=== PATIENT | male | born 1940 | race Caucasian/White ===

== ENCOUNTER → 2016-11-30 | Outpatient (CLI) | payer BC ==
[~2016-11-30] MED LIST: ASPCH81X PO; HMLI7525 SC; IBUP-1050 PO; METO50TA16 PO; MULTTAB58 PO; PRLSR20 PO; SIMV20TA2 PO; TRAGPOW14 PO; TRIA37.5 PO
[2016-11-30 14:13] LABS: ESTIMATED AVERAGE GLUCOSE 151 mg/dl; HA1C FLAG Normal (Normal)
[2016-11-30 14:19] LABS: CALCIUM 8.9 mg/dl (8.5-10.1)
[2016-11-30 14:26] LABS: ALT/SGPT 33 U/L (12-78); AST/SGOT 19 U/L (15-37); BLOOD UREA NITROGEN 28 mg/dl (7-18); BUN/CREATININE RATIO 20.1 (10-20); CARBON DIOXIDE 27 mmol/L (21-32); CHLORIDE 105 mmol/L (98-107); CHOLESTEROL 115 mg/dl (0-200); GLUCOSE 114 mg/dl (70-99); POTASSIUM 4.2 mmol/L (3.5-5.1); SODIUM 140 mmol/L (136-145); TRIGLYCERIDES 85 mg/dl (0-150); VERY LOW DENSITY LIPOPROT CALC 17 mg/dl
[2016-11-30 14:31] LABS: ALB/GLOB RATIO 1.2 (0.9-2); ALKALINE PHOSPHATASE 52 U/L (45-117); CHOLESTEROL/HDL RATIO 3.4; HDL CHOLESTEROL 34 mg/dl
[2016-11-30 14:43] LABS: RATIO 10.8 mcg/mg (0-30.0)
== END | disposition home or self-care (01) ==
LOC: C.LABSPEC 12:25
PROVIDERS: ATTEND Internal Medicine
DX: E66.09 Other obesity due to excess calories (principal); E78.5 Hyperlipidemia, unspecified; E11.9 Type 2 diabetes mellitus without complications; I10 Essential (primary) hypertension

== ENCOUNTER → 2017-03-30 | Outpatient (CLI) | payer BC ==
[2017-03-30 13:44] LABS: ESTIMATED AVERAGE GLUCOSE 183 mg/dl; HA1C FLAG Normal (Normal)
[2017-03-30 14:04] LABS: BLOOD UREA NITROGEN 29 mg/dl (7-18); BUN/CREATININE RATIO 19.3 (10-20); CALCIUM 8.8 mg/dl (8.5-10.1); CARBON DIOXIDE 27 mmol/L (21-32); CHLORIDE 106 mmol/L (98-107); CHOLESTEROL 124 mg/dl (0-200); GLUCOSE 161 mg/dl (70-99); POTASSIUM 4.4 mmol/L (3.5-5.1); SODIUM 138 mmol/L (136-145)
[2017-03-30 14:06] LABS: CHOLESTEROL/HDL RATIO 3.5; HDL CHOLESTEROL 35 mg/dl; TRIGLYCERIDES 82 mg/dl (0-150); VERY LOW DENSITY LIPOPROT CALC 16 mg/dl
== END | disposition home or self-care (01) ==
LOC: C.LABSPEC 12:55
PROVIDERS: ATTEND Internal Medicine
DX: E11.65 Type 2 diabetes mellitus with hyperglycemia (principal); E78.5 Hyperlipidemia, unspecified; I10 Essential (primary) hypertension

== ENCOUNTER → 2017-08-04 | Outpatient (CLI) | payer BC ==
[2017-08-04 13:24] LABS: HEMOGLOBIN A1C 8.2 % (4.5-5.6)
[2017-08-04 13:34] LABS: BLOOD UREA NITROGEN 29 mg/dl (7-18); CALCIUM 8.9 mg/dl (8.5-10.1); CARBON DIOXIDE 26 mmol/L (21-32); CHOLESTEROL 127 mg/dl (0-200); CREATININE 1.62 mg/dl (0.60-1.40); GLUCOSE 139 mg/dl (70-99); POTASSIUM 4.3 mmol/L (3.5-5.1); SODIUM 136 mmol/L (136-145)
[2017-08-04 13:37] LABS: LDL CHOLESTEROL (DIRECT) 93 mg/dl
== END | disposition home or self-care (01) ==
LOC: C.LABSPEC 12:16
PROVIDERS: ATTEND Internal Medicine
DX: E11.65 Type 2 diabetes mellitus with hyperglycemia (principal); E78.5 Hyperlipidemia, unspecified

== ENCOUNTER → 2017-11-29 | Outpatient (CLI) | payer BC ==
[2017-11-29 14:06] LABS: HEMOGLOBIN A1C 8.1 % (4.5-5.6)
[2017-11-29 14:16] LABS: BLOOD UREA NITROGEN 29 mg/dl (7-18); CALCIUM 8.6 mg/dl (8.5-10.1); CARBON DIOXIDE 28 mmol/L (21-32); CREATININE 1.59 mg/dl (0.60-1.40); GLUCOSE 129 mg/dl (70-99); POTASSIUM 4.2 mmol/L (3.5-5.1); SODIUM 138 mmol/L (136-145)
[2017-11-29 14:19] LABS: CHOLESTEROL 118 mg/dl (0-200); LDL CHOLESTEROL (DIRECT) 82 mg/dl
== END | disposition home or self-care (01) ==
LOC: C.LABSPEC 12:18
PROVIDERS: ATTEND Internal Medicine
DX: E78.5 Hyperlipidemia, unspecified (principal); I10 Essential (primary) hypertension; E11.65 Type 2 diabetes mellitus with hyperglycemia

== ENCOUNTER → 2018-02-21 | Outpatient (CLI) | payer BC ==
--- NOTE | 2018-02-21 15:50 | DIAGNOSTIC IMAGING REPORT ---
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 FINDINGS: The patient was injected with 10.9 mCi of F 18 labeled FDG. Following the standard induction phase, PET/CT scanning was performed from the lower neck to the upper thigh region. A separate table acquisitions of the head and neck was then acquired. Within the chest, there is a 28 mm FDG avid left upper lobe pulmonary mass with SUV maximum of 13.1. No additional FDG avid pulmonary lesions are visualized. There is no FDG avid adenopathy. There is a left aortic arch with an apparent right subclavian artery. Within the abdomen, there is physiologic urinary tract and bowel activity. There is no pathologic hepatic, or adrenal activity. There is no pathologic skeletal activity. There is intense focus of increased FDG activity within the cecum. Endoscopic correlation is recommended to exclude a colonic mass. There is no pathologic skeletal activity. Head and neck images reveal no evidence of pathologic noe activity. There is artifact from dental amalgam. There is a nonspecific focus of increased activity fusing to the left maxilla. Correlation with dental examination is recommended. There is a focus of minimal increased activity fusing to the left anterior mandible. This has an SUV maximum of 3.2. Again dental correlation is advocated. IMPRESSION: 1. 28 mm left upper lobe pulmonary mass which is intensely FDG avid with SUV maximum of 13.1. This should be presumed neoplastic unless proven otherwise. 2. No evidence of pathologic noe activity within the neck chest abdomen or pelvis 3. Intense focus of increased activity within the cecum with SUV maximum of 32. Endoscopic correlation is recommended to exclude a colonic lesion 4. Nonspecific foci of increased FDG activity fusing to the left anterior mandible and left maxilla. Correlation with dental examination is recommended. Electronically signed by: Mike Barba M.D. 02/21/2018 3:48 PM Dictated Date/Time: 02/21/2018 3:31 PM
== END | disposition home or self-care (01) ==
LOC: C.PET 10:51
DX: C44.02 Squamous cell carcinoma of skin of lip (principal); R91.8 Other nonspecific abnormal finding of lung field

== ENCOUNTER → 2018-02-23 | Outpatient (CLI) | payer BC ==
[~2018-02-23] MED LIST changes: +COEN100C7 PO
[2018-02-23 14:42] LABS: BASO % 0.4 %; BASO ABS # 0.03 K/uL (0-0.2); EOS % 1.8 %; EOS ABS # 0.15 K/uL (0-0.5); HEMATOCRIT 39.8 % (42-52); HEMOGLOBIN 12.8 g/dL (14.0-18.0); IG# 0.02 K/uL (0.00-0.02); LYMPH % 22.8 %; LYMPH ABS # 1.94 K/uL (1.2-3.4); MEAN CELL VOLUME 86.1 fL (80-100); MEAN CORPUSCULAR HEMOGLOBIN 27.7 pg (25-34); MEAN CORPUSCULAR HGB CONC 32.2 g/dl (32-36); MEAN PLATELET VOLUME 10.7 fL (7.4-10.4); MONO % 10.2 %; MONO ABS # 0.87 K/uL (0.11-0.59); NEUT % 64.6 %; PLATELET COUNT 285 K/uL (130-400); RED CELL DISTRIBUTION WIDTH CV 15.5 % (11.5-14.5); RED CELL DISTRIBUTION WIDTH SD 48.4 fL (36.4-46.3); WHITE BLOOD COUNT 8.51 K/uL (4.8-10.8)
[2018-02-23 15:03] LABS: ALBUMIN 3.7 gm/dl (3.4-5.0); ALKALINE PHOSPHATASE 57 U/L (45-117); ALT/SGPT 40 U/L (12-78); AST/SGOT 30 U/L (15-37); BLOOD UREA NITROGEN 30 mg/dl (7-18); CALCIUM 8.6 mg/dl (8.5-10.1); CARBON DIOXIDE 23 mmol/L (21-32); GLUCOSE 142 mg/dl (70-99); POTASSIUM 4.9 mmol/L (3.5-5.1); SODIUM 138 mmol/L (136-145); TOTAL PROTEIN 7.4 gm/dl (6.4-8.2)
== END | disposition home or self-care (01) ==
LOC: C.LABSPEC 13:30
PROVIDERS: ATTEND Internal Medicine
DX: K63.89 Other specified diseases of intestine (principal)

== ENCOUNTER → 2018-02-25 | Outpatient (CLI) | payer BC ==
--- NOTE | 2018-02-25 15:07 | DIAGNOSTIC IMAGING REPORT ---
CT SCAN OF THE ABDOMEN AND PELVIS WITHOUT IV CONTRAST CLINICAL HISTORY: Cecal mass. COMPARISON STUDY: Abdominal CT dated 09/19/2014. TECHNIQUE: CT scan of the abdomen and pelvis is performed from the lung bases to the proximal femora. Images are reviewed in the axial, sagittal, and coronal planes. IV contrast was not administered for this examination. Note that the examination is suboptimal without IV contrast. Oral contrast was utilized. The examination is also degraded by streak artifact from the arms which could not be elevated above the abdomen as well as motion artifact. A dose lowering technique was utilized adhering to the principles of ALARA. FINDINGS: Lung bases: The heart is top normal in size and without pericardial effusion. The coronary arteries and aortic valve leaflets are densely calcified. The lung bases are clear. Liver: The unenhanced liver is normal in size, contour, and attenuation. There is no intrahepatic biliary ductal dilatation. Gallbladder: Surgically absent noting clips in the gallbladder fossa. Spleen: Normal in size and attenuation. Pancreas: The unenhanced pancreas is moderately atrophic and grossly unremarkable. Adrenal glands: Unremarkable. Kidneys: The unenhanced kidneys demonstrate cortical atrophy and are without hydronephrosis. There are no renal calculi identified. There is no evidence of contour deforming renal mass lesion. Abdominal vasculature: The abdominal aorta is normal in course and caliber noting moderate to advanced atherosclerotic calcification. Bowel: There is mild colonic diverticulosis without CT evidence of acute diverticulitis. No bowel obstruction is seen the patient's reported cecal mass is not visualized by CT. The appendix is normal as imaged. Peritoneum: There is no intraperitoneal free air or abdominal ascites. There is a fat-containing umbilical hernia. Lymphadenopathy: None. Pelvic viscera: The prostate gland is enlarged and heterogeneous, measuring 5.3 cm transverse diameter. There is median lobe hypertrophy. The bladder is normal as imaged Skeletal structures: The skeletal structures are osteopenic. There is mild lumbosacral spondylosis. No lytic or blastic lesions are seen. IMPRESSION: 1. There is no evidence of metastatic disease in the abdomen or pelvis on this unenhanced examination. 2. The patient's reported cecal mass was not visualized. 3. No acute infectious or inflammatory findings are identified in the abdomen or pelvis. 4. Additional findings as above. Electronically signed by: Uzair Wilson M.D. 02/25/2018 3:06 PM Dictated Date/Time: 02/25/2018 2:59 PM
--- NOTE | 2018-02-25 15:09 | DIAGNOSTIC IMAGING REPORT ---
(CHEST) THORAX WITHOUT CT DOSE: 2714.79 mGy.cm CLINICAL HISTORY: 77 years-old Male with CT. Follow-up CT in a patient with history of head and neck carcinoma. TECHNIQUE: Multiaxial CT images of the chest were performed without contrast. A dose lowering technique was utilized adhering to the principles of ALARA. COMPARISON: PET CT 02/21/2018 FINDINGS: Homogeneous appearance of the thyroid. Calcified left hilar adenopathy compatible with prior granulomatous disease. Mild multichamber cardiac enlargement with coronary arterial calcifications. Moderate calcification of the aorta. 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 Unopacified pulmonary artery is unremarkable. Nonenlarged periaortic lymph nodes are seen at the level of the diaphragmatic hiatus. Calcific granulomata about the left upper and lower lobes. No pneumothorax or pleural effusion. Minimal dependent subsegmental bibasilar opacities suggest atelectasis. Respiratory motion limits evaluation of the lungs. Mild bilateral bronchial wall thickening with areas of mucous plugging. There are a few scattered solid nodules of the right upper lobe measuring up to 3 mm. There is a lobular solid masslike nodule of the left upper lobe redemonstrated, 2.5 x 2.4 x 2.6 cm in AP, transverse and craniocaudal dimension with surrounding groundglass density. Ill-defined consolidation tracks along the bronchovascular bundle inferior to the nodule. Adjacent pleural-based linear subsegmental consolidative opacity extends towards the anterior segment left upper lobe. No acute process about the imaged upper abdomen. Bilateral gynecomastia. No suspicious lytic or blastic bony lesions. IMPRESSION: 1. Focal masslike area of consolidation of the left upper lobe with adjacent groundglass density redemonstrated measuring up to 2.6 cm in greatest dimension. Ill-defined groundglass density and subsegmental consolidation tracks along the bronchovascular bundle towards the left hilum. Again, differential considerations would include neoplasm with infectious or inflammatory pneumonitis also in the differential. 2. There are a few solid nodules of the right upper lobe measuring up to 3 mm which are also indeterminate. Attention at follow-up recommended. 3. Bilateral bronchial wall thickening suggests bronchitis. 4. Additional findings as above include prior granulomatous disease, cardiomegaly and aberrant right subclavian artery. Electronically signed by: Jon Dorado M.D. 02/25/2018 3:08 PM Dictated Date/Time: 02/25/2018 2:57 PM
--- NOTE | 2018-02-25 16:12 | DIAGNOSTIC IMAGING REPORT ---
TWO VIEW CHEST CLINICAL HISTORY: Left upper lobe pulmonary nodule.. FINDINGS: PA and lateral chest radiographs are compared to study dated 05/22/2016 and correlated with chest CT dated 02/25/2018. The heart is enlarged and there is atherosclerotic calcification of the thoracic aorta. The pulmonary vasculature is noncongested. There is an ill-defined focus of nodular consolidation in the left upper lobe which measures approximately 3 cm. Bibasilar atelectasis is observed. Calcified granulomas are seen at the left apex. There is no pneumothorax. The skeletal structures are osteopenic. Degenerative change is noted in the thoracic spine. There are healed right-sided rib fractures. Cholecystectomy clips are seen in the upper abdomen. IMPRESSION: 1. Cardiomegaly without radiographic evidence of congestive failure. 2. There is an approximately 3 cm focus of nodular consolidation in the left upper lobe. This could represent infection/inflammation versus neoplasm. Clinical correlation will be required and radiographic follow-up to resolution is recommended. If this fails to resolve then neoplasm becomes the diagnosis of exclusion. Electronically signed by: Uzair Wilson M.D. 02/25/2018 4:11 PM Dictated Date/Time: 02/25/2018 4:08 PM
== END | disposition home or self-care (01) ==
LOC: C.CTS 14:23
PROVIDERS: ATTEND Internal Medicine
DX: R91.8 Other nonspecific abnormal finding of lung field (principal)

== ENCOUNTER → 2018-03-04 | Day surgery (SDC) | payer BC ==
[2018-03-03 07:32] VITALS: BMI 38.0
[~2018-03-04] VITALS: Ht 170.2 cm; Wt 111.8 kg
[~2018-03-04] MED LIST changes: +PROPOFOL IV EMULSION 10 MG/ML 20 ML VIAL ONE; +SODIUM CHLORIDE 0.9% 500ML 500 ML IV ONE
[2018-03-04 13:56] VITALS: Ht 170.2 cm; Wt 111.8 kg
--- NOTE | 2018-03-04 15:21 | Endo History and Physical ---
History & Physical Date of Service: Mar 04, 2018. Chief Complaint: MASS IN CECUM PER PET SCAN Referring Physician: DR. ZACH KAPLAN History of Present Illness abnormal PET scan Past Medical History Diabetes, High Cholesterol, Hypertension Past Surgical History Hx Cardiac Surgery: Yes (CARDIAC CATH X2 WITH NO STENTS) Hx Internal Defibrillator: No Hx Pacemaker: No Hx Abdominal Surgery: Yes (LAP CHOLEY) Hx of Implantable Prosthesis: No Hx Post-Op Nausea and Vomiting: No Hx Cancer Surgery: No Hx Thoracic Surgery: No Hx Orthopedic: Yes (ORIF OF LEG FX) Hx Urinary Tract Surgery: No Family History Colon CA Social History Smoking Status: Never Smoker Hx Substance Use: No Hx Alcohol Use: No Allergies Coded Allergies: No Known Allergies (Verified , 03/04/18) Current Medications Reported Home Medications Medications Dose Route/Sig Max Daily Dose Days Date Category Coq10 (Coenzyme Q10 (Ubidecarenone)) 100 Mg Cap 100 Mg PO QAM 03/03/18 Reported Astragalus Root (Tragacanth) 1 Pow Pow 470 Mg PO QAM 05/28/16 Reported Humalog Mix 75/25 (Insulin Human Lispro) 100 Units/ Inj 50 Units SC PM 05/28/16 Reported Humalog Mix 75/25 (Insulin Human Lispro) 100 Units/ Inj 75 Units SC AM 05/28/16 Reported Prilosec (Omeprazole) 20 Mg Capcr 20 Mg PO QAM 05/28/16 Reported Dyazide 37.5MG/25MG (Triamterene/HCTZ) Cap 1 Tab PO QAM 10/09/14 Reported Aspirin Chewable (Aspirin) 81 Mg Chew 81 Mg PO BID 10/09/14 Reported Multivitamin (Multiple Vitamin) 1 Tab Tab 1 Tab PO QAM 11/15/11 Reported Lopressor (Metoprolol Tartrate) 50 Mg Tab 50 Mg PO BID 11/15/11 Reported Zocor (Simvastatin) 20 Mg Tab 20 Mg PO QPM 11/15/11 Reported Vital Signs Weight (Kilograms): 111.82 Height (Feet): 5 Height (Inches): 7 Date Time Temp Pulse Resp B/P (MAP) Pulse Ox O2 Delivery O2 Flow Rate FiO2 03/04/18 14:02 36.7 78 20 168/78 (108) 95 Room Air Physical Exam General Appearance: WD/WN, no apparent distress Respiratory/Chest: Auscultation: breath sounds normal Cardiovascular: Heart Auscultation: RRR Abdomen: Bowel Sounds: normal Inspection & Palpation: soft, non-distended, no tenderness, guarding & rebound Assessment and Plan colonoscopy
--- NOTE | 2018-03-04 16:08 | Discharge Instructions ---
Endoscopy Patient Instructions Date / Procedure(s) Performed Mar 04, 2018. Colonoscopy Allergy Information Coded Allergies: No Known Allergies (Verified , 03/04/18) Discharge Date / Findings Mar 04, 2018. colon polyp Medication Instructions Restart Stopped Medication(s): Reported Home Medications Medications Dose Route/Sig Max Daily Dose Days Date Category Coq10 (Coenzyme Q10 (Ubidecarenone)) 100 Mg Cap 100 Mg PO QAM 03/03/18 Reported Astragalus Root (Tragacanth) 1 Pow Pow 470 Mg PO QAM 05/28/16 Reported Humalog Mix 75/25 (Insulin Human Lispro) 100 Units/ Inj 50 Units SC PM 05/28/16 Reported Humalog Mix 75/25 (Insulin Human Lispro) 100 Units/ Inj 75 Units SC AM 05/28/16 Reported Prilosec (Omeprazole) 20 Mg Capcr 20 Mg PO QAM 05/28/16 Reported Dyazide 37.5MG/25MG (Triamterene/HCTZ) Cap 1 Tab PO QAM 10/09/14 Reported Aspirin Chewable (Aspirin) 81 Mg Chew 81 Mg PO BID 10/09/14 Reported Multivitamin (Multiple Vitamin) 1 Tab Tab 1 Tab PO QAM 11/15/11 Reported Lopressor (Metoprolol Tartrate) 50 Mg Tab 50 Mg PO BID 11/15/11 Reported Zocor (Simvastatin) 20 Mg Tab 20 Mg PO QPM 11/15/11 Reported Reported Home Medications Medications Dose Route/Sig Max Daily Dose Days Date Category Coq10 (Coenzyme Q10 (Ubidecarenone)) 100 Mg Cap 100 Mg PO QAM 03/03/18 Reported Astragalus Root (Tragacanth) 1 Pow Pow 470 Mg PO QAM 05/28/16 Reported Humalog Mix 75/25 (Insulin Human Lispro) 100 Units/ Inj 50 Units SC PM 05/28/16 Reported Humalog Mix 75/25 (Insulin Human Lispro) 100 Units/ Inj 75 Units SC AM 05/28/16 Reported Prilosec (Omeprazole) 20 Mg Capcr 20 Mg PO QAM 05/28/16 Reported Dyazide 37.5MG/25MG (Triamterene/HCTZ) Cap 1 Tab PO QAM 10/09/14 Reported Aspirin Chewable (Aspirin) 81 Mg Chew 81 Mg PO BID 10/09/14 Reported Multivitamin (Multiple Vitamin) 1 Tab Tab 1 Tab PO QAM 11/15/11 Reported Lopressor (Metoprolol Tartrate) 50 Mg Tab 50 Mg PO BID 11/15/11 Reported Zocor (Simvastatin) 20 Mg Tab 20 Mg PO QPM 11/15/11 Reported Provider Instructions Activity Restrictions - No exercising or heavy lifting for 24 hours. - Do not drink alcohol the day of the procedure. - Do not drive a car or operate machinery until the day after the procedure. - Do not make any important decisions or sign important papers in 24 hours after the procedure. Following Day: - Return to full activity which may include returning to work/school. Diet Start your diet with liquids and light foods (jello, soup, juice, toast). Then eat your usual diet if not nauseated. Treatment For Common After Affects For mild abdominal pain, bloating, or excessive gas: - Rest - Eat lightly - Lie on right side Follow-Up Information Follow-up with DR. ZACH KAPLAN as scheduled Anesthesia Information What You Should Know You have had a procedure that required some medicine to reduce anxiety and discomfort. This treatment is called moderate sedation. After receiving the treatment, you may be sleepy, but you will be able to breathe on your own. The effects of the treatment may last for several hours. Follow these instructions along with Activity/Diet recommendations noted above: * Do NOT do anything where dizziness or clumsiness would be dangerous. * Rest quietly at home today, then you can be up and about tomorrow. * Have a responsible person stay with you the rest of today. * You may have had an I.V. today. If so, you may take the dressing off later today. Recommendations Call your doctor if: * Trouble breathing * Continuous vomiting for more than 24 hours * Temperature above 101 degrees * Severe abdominal pain or bloating * Pain not relieved by pain medicine ordered * There is increased drainage or redness from any incision * A large amount of rectal bleeding greater than 2-3 tablespoons. (If you had a polyp/s removed or have hemorrhoids, a small amount of blood - from the rectum is to be expected.) * You have any unanswered questions or concerns. IN THE EVENT OF A SERIOUS EMERGENCY, GO TO THE NEAREST EMERGENCY ROOM Your discharge instructions were prepared by provider Jhonatan Haines. Patient Instructions Signature Page Juancho Bronson Patient (or Guardian) Signature/Date: I have read and understand the instructions given to me by my caregivers. Caregiver/RN/Doctor Signature/Date: The above-named patient and/or guardian has received patient instructions on this date. + Original Patient Signature Page (only) stays with chart. Please make copy for patient.
--- NOTE | 2018-03-04 16:15 | Anesthesiology Progress Note ---
Anesthesia Post Op Note Date & Time Mar 04, 2018 at 16:14 Vital Signs Pain Intensity: 0 Vital Signs Past 12 Hours Date Time Temp Pulse Resp B/P (MAP) Pulse Ox O2 Delivery O2 Flow Rate FiO2 03/04/18 16:10 65 20 121/56 (77) 96 Room Air 03/04/18 15:55 64 20 137/60 (85) 95 Room Air 03/04/18 14:02 36.7 78 20 168/78 (108) 95 Room Air Notes Mental Status: alert / awake / arousable, participated in evaluation Pt Amnestic to Procedure: Yes Nausea / Vomiting: adequately controlled Pain: adequately controlled Airway Patency, RR, SpO2: stable & adequate BP & HR: stable & adequate Hydration State: stable & adequate Anesthetic Complications: no major complications apparent
[2018-03-04 16:25] VITALS: BP 130/76; PULSE 63; O2SAT 95
--- NOTE | 2018-03-04 16:25 | GI REPORT ---
Patient Name: Juancho Bronson Procedure Date: 03/04/2018 3:18 PM Date of : 1940 Admit Type: Outpatient Age: 77 Gender: Male Attending MD: Jhonatan Haines MD Procedure: Colonoscopy Providers: Jhonatan Haines MD Referring MD: Chris Chris Indications: Abnormal PET scan of the GI tract Medicines: Propofol per Anesthesia Complications: No immediate complications. Estimated blood loss: Minimal. Estimated Blood Loss: Estimated blood loss was minimal. Procedure: Pre-Anesthesia Assessment: - Prior to the procedure, a History and Physical was performed, and patient medications and allergies were reviewed. The patient's tolerance of previous anesthesia was also reviewed. The risks and benefits of the procedure and the sedation options and risks were discussed with the patient. All questions were answered, and informed consent was obtained. Prior Anticoagulants: The patient has taken no previous anticoagulant or antiplatelet agents. ASA Grade Assessment: III - A patient with severe systemic disease. After reviewing the risks and benefits, the patient was deemed in satisfactory condition to undergo the procedure. After I obtained informed consent, the scope was passed under direct vision. Throughout the procedure, the patient's blood pressure, pulse, and oxygen saturations were monitored continuously. The Scope was introduced through the anus and advanced to the terminal ileum, with identification of the appendiceal orifice and IC valve. The colonoscopy was performed without difficulty. The patient tolerated the procedure well. The quality of the bowel preparation was good. Findings: The perianal and digital rectal examinations were normal. Pertinent negatives include normal sphincter tone, no palpable rectal lesions and no anal lesion or abnormality was detected. A 6 mm polyp was found in the transverse colon. The polyp was sessile. The polyp was removed with a cold snare. Resection and retrieval were complete. Estimated blood loss was minimal. Verification of patient identification for the specimen was done by the physician and dictaphone technician using the patient's name and medical record number. The terminal ileum appeared normal. The colon (entire examined portion) appeared normal. The cecum appeared normal. A mucosal lesion is not identified in the cecum. There was a prominent bulge ( either submucosal or serosal) although this did resolve with continued insufflation. The retroflexed view of the distal rectum and anal verge was normal and showed no anal or rectal abnormalities. Impression: - One 6 mm polyp in the transverse colon, removed with a cold snare. Resected and retrieved. - The examined portion of the ileum was normal. - The entire examined colon is normal. - The cecum is normal. Recommendation: - Discharge patient to home (ambulatory). - Resume regular diet. - Continue present medications. - Await pathology results. - Return to referring physician as previously scheduled. - Repeat colonoscopy for surveillance based on pathology results. CT apparently fails to duplicate the positive PET scan finding. MD Jhonatan Pardo MD 03/04/2018 4:24:33 PM This report has been signed electronically. Note Initiated On: 03/04/2018 3:18 PM Number of Addenda: 0 I attest to the content of the Intraoperative Record and orders documented therein, exceptions below {[id number]}
== END | disposition home or self-care (01) ==
LOC: C.GI 13:33
PROVIDERS: ATTEND Internal Medicine Gastroenterology
DX: R93.3 Abnormal findings on diagnostic imaging of other parts of digestive tract (principal); D12.3 Benign neoplasm of transverse colon; E11.9 Type 2 diabetes mellitus without complications; I12.9 Hypertensive chronic kidney disease with stage 1 through stage 4 chronic kidney disease, or unspecified chronic kidney disease; I25.10 Atherosclerotic heart disease of native coronary artery without angina pectoris; N18.9 Chronic kidney disease, unspecified; E78.00 Pure hypercholesterolemia, unspecified; Z80.0 Family history of malignant neoplasm of digestive organs; Z79.4 Long term (current) use of insulin; Z79.82 Long term (current) use of aspirin; E66.9 Obesity, unspecified; Z68.39 Body mass index [BMI] 39.0-39.9, adult

== ENCOUNTER → 2018-03-10 | Outpatient (CLI) | payer BC ==
[~2018-03-10] MED LIST changes: -IBUP-1050 PO; -PROPOFOL IV EMULSION 10 MG/ML 20 ML VIAL ONE; -SODIUM CHLORIDE 0.9% 500ML 500 ML IV ONE
--- NOTE | 2018-03-15 10:48 | PULMONARY FUNCTION TEST ---
CLINICAL DATA: A 77-year-old male with a height of 68 inches and a weight of 247 pounds. He is referred by Dr. Mari for evaluation for a lung mass. Spirometry pre- and post-bronchodilator, lung volumes, and DLCO were performed. FINDINGS: Pre-bronchodilator spirometry demonstrates moderate mixed restrictive/obstructive disease. FVC was 51% of predicted. FEV1 was 56% of predicted. [id number] was 43% of predicted. There was slight improvement after inhaled bronchodilator. FVC improved 15% to 59% of predicted. Lung volumes demonstrate reduction in all lung volumes consistent with restrictive lung disease. DLCO was normal at 80% of predicted. IMPRESSION: Moderate mixed restrictive/obstructive disease with improvement after inhaled bronchodilator with normal DLCO. MTDD
== END | disposition home or self-care (01) ==
LOC: C.RC 09:33
PROVIDERS: ATTEND Surgery
DX: C44.02 Squamous cell carcinoma of skin of lip (principal); R91.8 Other nonspecific abnormal finding of lung field

== ENCOUNTER 2021-11-08 20:49 | Inpatient (IN) ==
--- NOTE | 2021-11-08 21:39 | Emergency Department Note ---
Impression & Plan Pulmonary edema, Shortness of breath on exertion, Malaise and fatigue ED Provider Note Name: RENETTA DEL CASTILLO Age: 80 Sex: M Arrives Via: Walk-In Informant: Patient, ED Provider: Nikhil Riley MD Chief Complaint: Shortness of breath Impression: As per impressions above Medical Decision Makin-year-old gentleman with a extensive past medical history including CAD, CKD, aortic stenosis, obesity, VADIM, COPD, diabetes, hypertension, lung resection a mongst other comorbidities arrives for evaluation of worsening weakness and shortness of breath. On arrival patient is quite short of breath with diffuse crackles all lung sounds. He is not significantly hypoxic but is clearly tachypneic. Chest x-ray is consistent with pulmonary edema. Rest of exam is consistent with heart failure and overload. Febrile and the rest of his work-up is relatively benign without any severe abnormalities. His troponin is mildly elevated but it is high-sensitivity 30 and he has some chronic renal insufficiency. As you not having any significant chest pain nor EKG stemi I do not think that starting anticoagulation is necessary at this time. He does have aortic stenosis but his blood pressure is on the higher side. Given the concern for fluid overload he was given Lasix IV. Hospitalist was consulted given the patient does not look well and I do not feel that discharge would be appropriate at this time. Prior Medical Record and Triage/Nursing Notes reviewed by Me Additional history obtained from chart and Differentials:Infection, dehydration, metabolic abnormality, hypo/hyperglycemia, electrolyte disturbance, anemia, hypoxia, cardiac sources, intracerebral event, toxicologic, neurologic, as well as other pathologies. Vital Signs: reviewed and remarkable for no significant abnormalities Interventions: lasix 40mg iv Labs:Reviewed and remarkable for mild elevation in BNP, troponin Imagin view chest x-ray bilateral infiltrates concerning for pulmonary edema EKG:Per My Interpretation: Indication shob: NSR 79 bpm, qtc 456 with evidence LV hypertrophy. Nonspecific st depressions II & III. No Ectopy. Compared to EKG 11/09/21 depressions new. Cardiac/Tele Monitoring: Cardiac Monitoring: An Order was placed for continuous cardiac monitoring. The monitor shows a rate of 70 with a normal sinus rhythm. Consults:Dr Xiao Plan: Disposition:Hospitalization. Condition: Fair History of Present Illness:72-year-old gentleman arrives for evaluation of weakness. Patient notes the last few weeks worsening malaise, fatigue and w eakness. This resulted in a PCP appointment about a week and a half ago where he had some labs done no clear source. Over the last few days worsening weakness generalized fatigue. He notes both his legs have been increasingly painful and swollen. He has not a point where he is unable to ambulate around the house except with 2 canes and very slowly. It is associated with shortness of breath with exertion. He denies any chest pain. He does note that his chronic cough seems slightly worse but he always is having a productive cough. Denies any fevers, chills, syncope. He does have chronic increased urinary frequency which he relates to having been on his water pill. Patient is a diabetic but has not checked his sugar in several months since his glucometer broke. Patient denies any specific headaches, neck pain, stiff neck stiffness, fevers, syncope, back pain, abdominal pain, rashes or other symptoms. He has had no recent bleeding or bruising. Patient not been taking any specific medications other than his chronic daily medications. Exertion makes worse and rest seems to make slightly better. ROS: See above HPI for pertinent positives & negatives. A total of 10 systems reviewed and were otherwise negative. Past Medical History:See Below Past Surgical History:See Below Family History:See Below Social History:See Below Home Medications:See Below Allergies:No known drug allergies Vitals:Blood Pressure: 147/68, Pulse 78, RR 16, T 36.9C, O2 95% on RA Physical Exam: GENERAL: Patient is chronically unwell and pale appearing and in mild distress. EYES: No scleral icterus, unremarkable pupils. ENT: Mucous membranes moist, no nasal congestion. NECK: No masses appreciated, nomeningismus, trachea is midline. RESPIRATORY: No dyspnea. Clear to auscultation and equal bilaterally. No wheeze, no rhonchi. CARDIOVASCULAR: Regular rate and rhythm.harsh systolic murmur, rubs, gallops appreciated. GASTROINTESTINAL: Abdomen soft, non-tender, no peritonitis.Bowel sounds positive.No masses appreciated. BACK: No midline tenderness, no CVA tenderness EXTREMITIES: 3+ edema bilaterally to knees. Normal motion all extremities, no cyanosis. NEUROLOGIC: Alert and oriented, no acute motor or sensory deficits, no focal weakness, cranial nerves grossly intact. SKIN: No rash, no jaundice, no diaphoresis. PSYCH: Appropriate GCS: 15 ED Course: Times/Reassessments: Patient stable though somewhat tachypneic. He is agreeable to IV Lasix and agrees with plan for hospitalization Nikhil Riley MD Past Med/Surg History Medical History (Updated 11/09/21 @ 23:26 by Nikhil Riley MD) Abnormal stress echo Anemia CAD (coronary artery disease) NON-OBSTRUCTIVE Cholelithiasis CKD (chronic kidney disease) baseline creatinine 1.6 Diabetes Diabetes mellitus, type 2 IDDM, +B/L FEET NEUROPATHY Gastro-esophageal reflux GERD (gastroesophageal reflux disease) Hearing deficit wears hearing aids Hiatal hernia High cholesterol Hyperlipidemia Hypertension Hypertension Impacted cerumen of left ear Lip ulcer Lung cancer Discharge summary dated 04/06/[address] Mari: HOSPITAL COURSE: This is a very nice 77-year-old male who was found to have a mass. It certainly appeared to be a carcinoma in the left upper lobe. We worked him up and felt he would be a candidate for a resection. Upon opening the lung, getting into the patient's chest with our robotic thoracoscopic resection on 03/30/2018, I was quite pleased. We took down the fissure quite nicely, took down all of the arterial branches but one and had the vein isolated as well as the bronchus and the patient had a tear of this remaining artery. We controlled this, we had to open the chest. We eventually got control and I repaired this primarily. The patient was extubated later that day. We had a significant blood loss. The patient was transfused. He also had a creatinine of 1.71 preop. This went as high as 3 in the subsequent days, but then came back down. He looked very good the day after surgery. He was requiring no oxygen and was eating a regular diet. We had some drainage from the chest tubes. We kept it in for a few days. There was no evidence of bleeding. Frankly I was quite pleased with him. He was ambulating in the hallway. He was moving his bowels, although he required some cathartics. Hemoglobin settled down in the low 8. We left it there after used 4 units total of blood. Creatinine came back down. He was making excellent urine. Creatinine was 2.51 the day before discharge. His incisions were all clean. We removed his chest tube after he had a small pneumothorax, a small amount of fluid and on 04/05/2018, I performed an aspiration of this and his pneumothorax had resolved. I was quite happy with this. The following day, I did not really see much of pneumothorax. He had a bit more fluid, but he was on room air, ambulating and I think it is best for him to go home. 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 I told her to call me directly should there be any issues. Quite frankly, I was quite pleased with him. His incisions were clean. He had very little in the way of pain. We did send him home on tramadol and told to resume his regular medications. I will see him back in the office next week. 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 Robotic L VATS converted to open procedure. Glidescope assisted PERFECTO insertion. During surgery there was significant bleeding from the pulmonary artery which forced a change to an open thoracotomy and was difficult to control. Fluids were given followed by blood and between the blood loss and manipulation in the chest there were some brief times when the eros was showing very little pulse. His CO2 tracing dropped but never went to nothing. Along with the fluids he did receive 0.5mg epi and 2 units of vasopressin in addition to occasional small doses of ephedrine and phen ylephrine. Blood loss was controlled and his vitals stabilized for the rest of the case. At the end of the procedure, we changed to a single lumen ETT and Dr Mari did a bronchoscopy which showed a little blood in the bronchi but basically clear. He is making urine, his vitals are stable, we are leaving him on the ventilator for the mean time to allow him to wake and make sure he is not acidotic. Labs and chest film are being done now - report to ICU MD. Valvular disease Mild aortic stenosis per 2016 stress test Surgical History History of cardiac cath 2016- NO STENTS [facility] History of cholecystectomy 11/22/2014. DL x2. Glidescope #3 by MDA and 7.5 ETT inserted. Grade 3 view. History of colonoscopy History of lobectomy of lung left upper lobe 03/30/2018 [facility] S/P lobectomy of lung Family History Father Cardiac disorder Other No family history of bleeding disorder Social History Smoking Status: Former smoker Second Hand Exposure: No; Hx Alcohol Use: No Hx Substance Use: No Preferred Language: Indonesian Communication Ability: Effective Visual Impairment: No Limitations Curtain Framer Required: No Beliefs That Will Affect Care: None Current Living Situation: Spouse Other Information That Helps Us Care for You: No Feels Safe at Home: Yes Safety Concerns: Feels Safe At This Time Assistive Devices: Denture - Upper, Glasses, Hearing Aid - Left, Hearing Aid - Right and Walker Allergies Allergies Allergy/AdvReac Type Severity Reaction Status Date / Time No Known Drug Allergies Allergy Verified 06/02/21 14:32 sulfamethoxazole Allergy Hives Unverified 11/08/21 22:38 [From Bactrim] trimethoprim [From Bactrim] Allergy Hives Unverified 11/08/21 22:38 Home Meds Home Medications Medication Instructions Recorded Confirmed aspirin 81 mg tablet,delayed 81 mg PO BID 04/25/18 11/08/21 release coenzyme Q10 100 mg capsule 200 mg PO QAM 04/25/18 11/08/21 (CoQ-10) metoprolol tartrate 50 mg tablet 50 mg PO BID 04/25/18 11/08/21 multivitamin 1 tab PO QAM 04/25/18 11/08/21 omeprazole magnesium 20 mg 20 mg PO QAM 04/25/18 11/08/21 tablet,delayed release (Prilosec OTC) simvastatin 20 mg tablet 20 mg PO HS 04/25/18 11/08/21 triamterene 37.5 1 tab PO QAM 04/25/18 11/08/21 mg-hydrochlorothiazide 25 mg tablet furosemide 40 mg tablet 40 mg PO DAILY tab 04/27/19 11/08/21 guaifenesin 1,200 mg tablet, 1,200 mg PO BID 04/27/19 11/08/21 extended release 12 hr (Mucinex) ferrous sulfate 324 mg (65 mg 324 mg PO DAILY tab 07/17/19 11/08/21 iron) tablet,delayed release insulin lispro protamine-lispro 60 unit SUBCUT QPM ml 03/20/20 11/08/21 100 unit/mL (75-25) subcutaneous susp (Humalog Mix 75-25(U-100)Insuln) insulin lispro protamine-lispro 95 unit SUBCUT QAM ml 03/20/20 11/08/21 100 unit/mL (75-25) subcutaneous susp (Humalog Mix 75-25(U-100)Insuln) dulaglutide 0.75 mg/0.5 mL 0.75 mg SUBCUT .weekly ml 11/08/20 11/08/21 subcutaneous pen injector (Trulicity) potassium chloride 10 mEq 10 meq PO DAILY 11/08/20 11/08/21 capsule,extended release astragalus root 470 mg capsule 470 mg PO DAILY 11/08/21 11/08/21 isosorbide mononitrate 60 mg 60 mg PO DAILY 11/08/21 11/08/21 tablet,extended release 24 hr Previous Rx's Medication Instructions Recorded CPAP Machine #1 ea 07/17/19 CPAP Supplies #1 ea 05/23/20 nebulizers (Aeroneb Go Nebulizer) #1 ea 05/23/20 Flutter Valve #1 ea 05/24/20 ipratropium 0.5 mg-albuterol 3 mg 3 ml INHALATION Q8H PRN #270 ml 11/25/20 (2.5 mg base)/3 mL nebulization soln fluticasone propionate 50 1 spray INTRANASAL DAILY #9.9 g 03/24/21 mcg/actuation nasal spray,suspension (Allergy Relief (fluticasone)) umeclidinium 62.5 mcg-vilanterol 1 inh INHALATION DAILY #60 ea 04/14/21 25 mcg/actuation powdr for inhalation (Anoro Ellipta) Results & Data (ED) Vital Signs Vital Signs - 24 hr 11/08/21 20:53 11/08/21 22:38 Temperature 36.9 C Temperature Source Temporal Artery Scan Pulse Rate 78 Pulse Rate [Right Finger] 70 Respiratory Rate 16 16 Respiratory Effort / Characteristics Non-Labored Spontaneous Respiratory Depth Normal Respiratory Pattern Regular Blood Pressure 147/68 H Blood Pressure [Right Arm] 145/83 H Blood Pressure Mean 94 Blood Pressure Mean [Right Arm] 103 Blood Pressure Position [Right Arm] Lying Pulse Oximetry 95 100 Oxygen Delivery Method Room Air Room Air Sepsis Recent Fever Within 48 Hours No Sepsis New/Unexplained Change in Mental Status N/A Sepsis Action Taken by Nursing No Action Required Laboratory Data Result diagrams: 11/09/21 05:33 11/09/21 05:33 Lab Results 11/08/21 11/08/21 11/08/21 Range/Units 21:22 21:22 21:54 WBC 12.21 H (4.8-10.8) K/uL RBC 4.60 L (4.7-6.1) M/uL Hgb 14.7 (14.0-18.0) g/dL Hct 44.5 (42-52) % MCV 96.7 (80-100) fL MCH 32.0 (25-34) pg MCHC 33.0 (32-36) g/dL RDW Std Deviation 48.9 H (36.4-46.3) fL RDW Coeff of Mac 13.7 (11.5-14.5) % Plt Count 307 (130-400) K/uL MPV 10.5 H (7.4-10.4) fL Immature Gran % (Auto) 0.2 % Neut % (Auto) 70.5 % Lymph % (Auto) 17.8 % Nye % (Auto) 10.5 % Eos % (Auto) 0.8 % Baso % (Auto) 0.2 % Neut # (Auto) 8.62 H (1.4-6.5) K/uL Lymph # (Auto) 2.17 (1.2-3.4) K/uL Nye # (Auto) 1.28 H (0.11-0.59) K/uL Eos # (Auto) 0.10 (0-0.5) K/uL Baso # (Auto) 0.02 (0-0.2) K/uL Immature Gran # (Auto) 0.02 (0.00-0.02) K/uL Sodium 140 (136-145) mmol/L Potassium 3.6 (3.5-5.1) mmol/L Chloride 99 (98-107) mmol/L Carbon Dioxide 31 (21-32) mmol/L Anion Gap 10 (3-11) BUN 39 H (6-23) mg/dl Creatinine 1.89 H (0.6-1.4) mg/dl Est Cr Clr Drug Dosing Not Reportable Est GFR ( Amer) 38.5 ml/min Est GFR (Non-Af Amer) 33.2 ml/min BUN/Creatinine Ratio 20.6 H (10-20) Glucose 86 (70-99(Fasting)) mg/dl Calcium 9.6 (8.5-10.1) mg/dl Magnesium 2.5 H (1.7-2.4) mg/dl Total Bilirubin 0.9 (0.2-1.0) mg/dl Direct Bilirubin 0.2 (0-0.2) mg/dl AST 27 (13-39) U/L ALT 27 (7-52) U/L Alkaline Phosphatase 53 (34-104) U/L Total Creatine Kinase 346 H (30-223) U/L Troponin I High Sens 32.8 H (0-20) pg/ml B-Natriuretic Peptide (0-100) pg/ml Total Protein 7.8 (6.0-8.3) gm/dl Albumin 4.3 (3.4-5.0) gm/dl Urine Color Yellow Urine Appearance Clear (Clear) Urine pH 5.5 (4.5-7.5) Ur Specific [place] 1.012 (1.000-1.030) Urine Protein Negative (Negative) Urine Glucose (UA) Negative (Negative) Urine Ketones Negative (Negative) Urine Blood Negative (Negative) Urine Nitrite Negative (Negative) Urine Bilirubin Negative (Negative) Urine Urobilinogen Negative (Negative) Ur Leukocyte Esterase Trace H (Negative) Urine WBC (Auto) 1-5 (0-5) /hpf Urine RBC (Auto) 0-4 (0-4) /hpf U Hyaline Cast (Auto) 1-5 (0-5) /lpf U Epithel Cells (Auto) 5-10 H (0-5) /lpf Urine Bacteria (Auto) Negative (Negative) SARS-CoV-2, RNA, NAAT (NEGATIVE) 11/08/21 11/08/21 Range/Units 21:54 22:29 WBC (4.8-10.8) K/uL RBC (4.7-6.1) M/uL Hgb (14.0-18.0) g/dL Hct (42-52) % MCV (80-100) fL MCH (25-34) pg MCHC (32-36) g/dL RDW Std Deviation (36.4-46.3) fL RDW Coeff of Mac (11.5-14.5) % Plt Count (130-400) K/uL MPV (7.4-10.4) fL Immature Gran % (Auto) % Neut % (Auto) % Lymph % (Auto) % Nye % (Auto) % Eos % (Auto) % Baso % (Auto) % Neut # (Auto) (1.4-6.5) K/uL Lymph # (Auto) (1.2-3.4) K/uL Nye # (Auto) (0.11-0.59) K/uL Eos # (Auto) (0-0.5) K/uL Baso # (Auto) (0-0.2) K/uL Immature Gran # (Auto) (0.00-0.02) K/uL Sodium (136-145) mmol/L Potassium (3.5-5.1) mmol/L Chloride (98-107) mmol/L Carbon Dioxide (21-32) mmol/L Anion Gap (3-11) BUN (6-23) mg/dl Creatinine (0.6-1.4) mg/dl Est Cr Clr Drug Dosing Est GFR ( Amer) ml/min Est GFR (Non-Af Amer) ml/min BUN/Creatinine Ratio (10-20) Glucose (70-99(Fasting)) mg/dl Calcium (8.5-10.1) mg/dl Magnesium (1.7-2.4) mg/dl Total Bilirubin (0.2-1.0) mg/dl Direct Bilirubin (0-0.2) mg/dl AST (13-39) U/L ALT (7-52) U/L Alkaline Phosphatase (34-104) U/L Total Creatine Kinase (30-223) U/L Troponin I High Sens (0-20) pg/ml B-Natriuretic Peptide 274 H (0-100) pg/ml Total Protein (6.0-8.3) gm/dl Albumin (3.4-5.0) gm/dl Urine Color Urine Appearance (Clear) Urine pH (4.5-7.5) Ur Specific [place] (1.000-1.030) Urine Protein (Negative) Urine Glucose (UA) (Negative) Urine Ketones (Negative) Urine Blood (Negative) Urine Nitrite (Negative) Urine Bilirubin (Negative) Urine Urobilinogen (Negative) Ur Leukocyte Esterase (Negative) Urine WBC (Auto) (0-5) /hpf Urine RBC (Auto) (0-4) /hpf U Hyaline Cast (Auto) (0-5) /lpf U Epithel Cells (Auto) (0-5) /lpf Urine Bacteria (Auto) (Negative) SARS-CoV-2, RNA, NAAT NEGATIVE (NEGATIVE) Administered Medications Acetaminophen (Acetaminophen 325 Mg Tab) 650 mg PO Q4H PRN PRN Reason: Pain or Fever Stop: 12/09/21 00:41 Last Admin: 11/09/21 20:53 Dose: 650 mg Documented by: [id number] Admin: 11/09/21 01:38 Dose: 650 mg Documented by: [id number] Aspirin (Aspirin 81 Mg Ectab) 81 mg PO BID [facility] Stop: 12/09/21 08:59 Last Admin: 11/09/21 20:46 Dose: 81 mg Documented by: [id number] Admin: 11/09/21 09:45 Dose: 81 mg Documented by: [id number] Diclofenac Sodium (Diclofenac Sod 1% Gel 100 Gm Tube) 4 gm EXT Q8H PRN PRN Reason: pain Stop: 12/09/21 04:14 Last Admin: 11/09/21 16:30 Dose: 4 gm Documented by: [id number] Admin: 11/09/21 04:40 Dose: 4 gm Documented by: [id number] Enoxaparin Sodium (Enoxaparin Inj 40 Mg/0.4 Ml Syr) 40 mg SQ Q24H [facility] Stop: 12/09/21 08:59 Last Admin: 11/09/21 09:47 Dose: 40 mg Documented by: [id number] Ferrous Sulfate (Ferrous Sulfate 325 Mg Tab) 325 mg PO DAILY [facility] Stop: 12/09/21 08:59 Last Admin: 11/09/21 09:46 Dose: 325 mg Documented by: [id number] Guaifenesin (Guaifenesin 600 Mg Tabcr) 1,200 mg PO BID [facility] Stop: 12/09/21 08:59 Last Admin: 11/09/21 20:46 Dose: 1,200 mg Documented by: [id number] Admin: 11/09/21 09:44 Dose: 1,200 mg Documented by: [id number] Insulin Aspart (Insulin Aspart Per Unit) 0 units SC ACHS [facility] Stop: 12/09/21 07:29 Last Admin: 11/09/21 20:47 Dose: Not Given Documented by: [id number] Cosigned by: [id number] Admin: 11/09/21 16:56 Dose: Not Given Documented by: [id number] Admin: 11/09/21 12:29 Dose: Not Given Documented by: [id number] Admin: 11/09/21 09:44 Dose: Not Given Documented by: [id number] Insulin Lispro Protam/Lispro Human (Insulin Lispro 75%/25%) 20 units SQ DAILY@1700 [facility] Stop: 12/09/21 16:59 Last Admin: 11/09/21 17:00 Dose: 20 units Documented by: [id number] Cosigned by: [id number] Insulin Lispro Protam/Lispro Human (Insulin Lispro 75%/25%) 30 units SQ DAILY@0800 [facility] Stop: 12/09/21 07:59 Last Admin: 11/09/21 09:48 Dose: 30 units Documented by: [id number] Cosigned by: [id number] Isosorbide Mononitrate (Isosorbide [place] Extended Rel 60 Mg Tabcr) 60 mg PO DAILY [facility] Stop: 12/09/21 08:59 Last Admin: 11/09/21 09:45 Dose: 60 mg Documented by: [id number] Metoprolol Tartrate (Metoprolol Tartrate 50 Mg Tab) 50 mg PO BID [facility] Stop: 12/09/21 00:41 Last Admin: 11/09/21 20:57 Dose: 50 mg Documented by: [id number] Admin: 11/09/21 09:45 Dose: 50 mg Documented by: [id number] Admin: 11/09/21 01:33 Dose: 50 mg Documented by: [id number] Multivitamins (Multivitamin Tab) 1 tab PO QAM [facility] Stop: 12/09/21 08:59 Last Admin: 11/09/21 09:46 Dose: 1 tab Documented by: [id number] Pantoprazole Sodium (Pantoprazole 40 Mg Tab) 40 mg PO QAM [facility] Stop: 12/09/21 08:59 Last Admin: 11/09/21 09:46 Dose: 40 mg Documented by: [id number] Potassium Chloride (Potassium Chloride Crtab 20 Meq Tabcr) 20 meq PO BID [facility] Stop: 12/09/21 00:41 Last Admin: 11/09/21 20:48 Dose: 20 meq Documented by: [id number] Admin: 11/09/21 09:45 Dose: 20 meq Documented by: [id number] Admin: 11/09/21 01:34 Dose: 20 meq Documented by: [id number] Simvastatin (Simvastatin 20 Mg Tab) 20 mg PO HS [facility] Stop: 12/09/21 20:59 Last Admin: 11/09/21 20:49 Dose: 20 mg Documented by: [id number] Triamterene/Hydrochlorothiazide (Triamterene/Hctz 37.5/25mg Tab) 1 tab PO QAM [facility] Stop: 12/09/21 08:59 Last Admin: 11/09/21 09:46 Dose: 1 tab Documented by: [id number] Umeclidinium/Vilanterol (Umeclidinium/Vilanterol 62.5/25mcg 7 Puffs/Inhaler) 1 puffs INH DAILY [facility] Stop: 12/09/21 08:59 Last Admin: 11/09/21 09:47 Dose: 1 puffs Documented by: [id number] Discontinued Medications Furosemide (Furosemide 40 Mg/4 Ml Vial) 40 mg IV ONE ONE Stop: 11/08/21 22:31 Last Admin: 11/08/21 22:42 Dose: 40 mg Documented by: [id number] Furosemide (Furosemide 40 Mg/4 Ml Vial) 40 mg IV QAM [facility] Stop: 11/09/21 12:00 Last Admin: 11/09/21 09:54 Dose: 40 mg Documented by: [id number] Discharge Plan Visit Data Chief Complaint: Leg Injury/Pain Stated Complaint: SWELLING AND PAIN IN BOTH LEGS, NOT WALKING ED Provider: Nikhil Riley Discharge Problem: Pulmonary edema, Shortness of breath on exertion, Malaise and fatigue Patient Disposition: Admitted As Inpatient Discharge Instructions Interventions: ED Discharge Assessment Last Done: 11/09/21 00:27 Discharge Problem: Pulmonary edema Qualifiers: Chronicity: acute Qualified Code(s): J81.0 - Acute pulmonary edema
[2021-11-08 22:02] LABS: Alanine Aminotransferase 27 U/L (7-52); Albumin Level 4.3 gm/dl (3.4-5.0); Alkaline Phosphatase 53 U/L (34-104); Anion Gap 10 (3-11); Aspartate Aminotransferase 27 U/L (13-39); BUN Creatinine Ratio 20.6 (10-20); Bilirubin Direct 0.2 mg/dl (0-0.2); Bilirubin,Total 0.9 mg/dl (0.2-1.0); Blood Urea Nitrogen 39 mg/dl (6-23); Calcium 9.6 mg/dl (8.5-10.1); Carbon Dioxide 31 mmol/L (21-32); Chloride 99 mmol/L (98-107); Creatine Kinase 346 U/L (30-223); Est GFR (African American) 38.5 ml/min; Est GFR (Non-African American) 33.2 ml/min; Glucose 86 mg/dl (70-99(Fasting)); Magnesium 2.5 mg/dl (1.7-2.4); Potassium 3.6 mmol/L (3.5-5.1); Sodium 140 mmol/L (136-145); Total Protein 7.8 gm/dl (6.0-8.3)
[2021-11-08 22:03] LABS: Basophils # (auto) 0.02 K/uL (0-0.2); Basophils % (auto) 0.2 %; Eosinophils % (auto) 0.8 %; Hematocrit (blood only) 44.5 % (42-52); Hemoglobin 14.7 g/dL (14.0-18.0); Immature Granulocytes # (auto) 0.02 K/uL (0.00-0.02); Immature Granulocytes % (auto) 0.2 %; Lymphocytes # (auto) 2.17 K/uL (1.2-3.4); Lymphocytes % (auto) 17.8 %; Mean Corpuscular Volume 96.7 fL (80-100); Mean Platelet Volume 10.5 fL (7.4-10.4); Monocytes # (auto) 1.28 K/uL (0.11-0.59); Monocytes % (auto) 10.5 %; Neutrophils # (auto) 8.62 K/uL (1.4-6.5); Neutrophils % (auto) 70.5 %; Platelet Count 307 K/uL (130-400); RDW Coefficient of Variation 13.7 % (11.5-14.5); RDW Standard Deviation 48.9 fL (36.4-46.3); White Blood Count 12.21 K/uL (4.8-10.8)
[2021-11-08 22:08] LABS: Troponin I High Sensitivity 32.8 pg/ml (0-20)
[2021-11-08] MEDS ORDERED: FUROSEMIDE 40 MG/4 ML VIAL IV ONE (22:30)
[2021-11-08 22:58] LABS: Appearance Urine Clear (Clear); Bacteria Urine Automated Negative (Negative); Bilirubin Urine Negative (Negative); Blood Urine Negative (Negative); Color Urine Yellow; Glucose Urine UA Negative (Negative); Ketones Urine Negative (Negative); Leukocyte Esterase Urine Trace (Negative); Nitrite Urine Negative (Negative); Protein Urine Negative (Negative); RBC Urine Automated 0-4 /hpf (0-4); Specific Gravity Urine 1.012 (1.000-1.030); Urobilinogen Urine Negative (Negative); pH Urine 5.5 (4.5-7.5)
--- NOTE | 2021-11-08 23:32 | History & Physical Report ---
Date of Service November 08, 2021 Assessment & Plan (1) CHF exacerbation: Plan: CHF exacerbation/severe aortic stenosis/hypertension/CAD/elevated troponin- The patient will be admitted to telemetry for serial cardiac enzymes, serial EKG's, cardiac rhythm monitoring and a 2-D echocardiogram with Dopplers. Troponin 32.8 Given Lasix 40 mg IV in ED Continue Lasix 40 mg IV every morning, and changing back to oral furosemide 40 mg p.o. daily on 11/10 Continue aspirin 81 mg p.o. twice daily, isosorbide mononitrate 60 mg p.o. daily, metoprolol tartrate 50 mg p.o. twice daily, triamterene/HCTZ daily. Increase potassium chloride from 10 mEq daily to 20 mEq p.o. 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 twice daily, routine inhalers daily (5) CAD (coronary artery disease): Plan: See above (6) Diabetes: Plan: Hold dulaglutide Decrease Humalog 75/25 mix from 95 units every morning to 30 units every morning and from 60 units every afternoon to 20 units every afternoon, due to decreased oral intake (7) Hypertension: Plan: See above (8) History of lobectomy of lung: Plan: See above (9) Lung cancer: Plan: See above (10) High cholesterol: Plan: Continue simvastatin 20 mg at bedtime (11) Gastro-esophageal reflux: Plan: Continue omeprazole/pantoprazole (12) Obstructive sleep apnea syndrome: Plan: CPAP at bedtime as needed History of Present Illness Chief Complaint: The patient presents to the emergency department with complaint of a few weeks of generalized weakness, shortness of breath and fatigue, progressive over the past couple days along with increasingly painful and swollen bilateral lower extremities Primary Care Provider: Chris Richards MD The patient is a 72-year-old male with a past medical history including CKD, severe aortic stenosis, morbid obesity, pulmonary hypertension, mixed restrictive and obstructive lung disease, VADIM, dyslipidemia, diabetes mellitus, GERD, hypertension, hyperlipidemia, status post left upper lobe lobectomy for primary adenocarcinoma of lung, and squamous cell carcinoma of skin of face. The patient presents with symptoms as noted above. He has been taking his medications as directed. Has not had any recent travels or sick exposures. Upon discussion of dietary habits, his reports that he has been given a large amount of venison dorotaogna, which has eaten recently Allergies Allergy/AdvReac Type Severity Reaction Status Date / Time No Known Drug Allergies Allergy Verified 06/02/21 14:32 sulfamethoxazole Allergy Hives Unverified 11/08/21 22:38 [From Bactrim] trimethoprim [From Bactrim] Allergy Hives Unverified 11/08/21 22:38 Home Medications Medication Instructions Recorded Confirmed Type aspirin 81 mg tablet,delayed 81 mg PO BID 04/25/18 11/08/21 History release coenzyme Q10 100 mg capsule 200 mg PO QAM 04/25/18 11/08/21 History (CoQ-10) metoprolol tartrate 50 mg tablet 50 mg PO BID 04/25/18 11/08/21 History multivitamin 1 tab PO QAM 04/25/18 11/08/21 History omeprazole magnesium 20 mg 20 mg PO QAM 04/25/18 11/08/21 History tablet,delayed release (Prilosec OTC) simvastatin 20 mg tablet 20 mg PO HS 04/25/18 11/08/21 History triamterene 37.5 1 tab PO QAM 04/25/18 11/08/21 History mg-hydrochlorothiazide 25 mg tablet furosemide 40 mg tablet 40 mg PO DAILY tab 04/27/19 11/08/21 History guaifenesin 1,200 mg tablet, 1,200 mg PO BID 04/27/19 11/08/21 History extended release 12 hr (Mucinex) CPAP Machine #1 ea 07/17/19 06/02/21 Rx ferrous sulfate 324 mg (65 mg 324 mg PO DAILY tab 07/17/19 11/08/21 History iron) tablet,delayed release insulin lispro protamine-lispro 60 unit SUBCUT QPM ml 03/20/20 11/08/21 History 100 unit/mL (75-25) subcutaneous susp (Humalog Mix 75-25(U-100)Insuln) insulin lispro protamine-lispro 95 unit SUBCUT QAM ml 03/20/20 11/08/21 History 100 unit/mL (75-25) subcutaneous susp (Humalog Mix 75-25(U-100)Insuln) CPAP Supplies #1 ea 05/23/20 06/02/21 Rx nebulizers (Aeroneb Go Nebulizer) #1 ea 05/23/20 06/02/21 Rx Flutter Valve #1 ea 05/24/20 06/02/21 Rx dulaglutide 0.75 mg/0.5 mL 0.75 mg SUBCUT .weekly ml 11/08/20 11/08/21 History subcutaneous pen injector (Trulicity) potassium chloride 10 mEq 10 meq PO DAILY 11/08/20 11/08/21 History capsule,extended release ipratropium 0.5 mg-albuterol 3 mg 3 ml INHALATION Q8H PRN #270 ml 11/25/20 11/08/21 Rx (2.5 mg base)/3 mL nebulization soln fluticasone propionate 50 1 spray INTRANASAL DAILY #9.9 g 03/24/21 11/08/21 Rx mcg/actuation nasal spray,suspension (Allergy Relief (fluticasone)) umeclidinium 62.5 mcg-vilanterol 1 inh INHALATION DAILY #60 ea 04/14/21 11/08/21 Rx 25 mcg/actuation powdr for inhalation (Anoro Ellipta) astragalus root 470 mg capsule 470 mg PO DAILY 11/08/21 11/08/21 History isosorbide mononitrate 60 mg 60 mg PO DAILY 11/08/21 11/08/21 History tablet,extended release 24 hr Past Med/Surg History Medical History (Updated 11/09/21 @ 01:23 by Luis Antonio Xiao MD) Abnormal stress echo Anemia CAD (coronary artery disease) NON-OBSTRUCTIVE Cholelithiasis CKD (chronic kidney disease) baseline creatinine 1.6 Diabetes Diabetes mellitus, type 2 IDDM, +B/L FEET NEUROPATHY Gastro-esophageal reflux GERD (gastroesophageal reflux disease) Hearing deficit wears hearing aids Hiatal hernia High cholesterol Hyperlipidemia Hypertension Hypertension Impacted cerumen of left ear Lip ulcer Lung cancer Discharge summary dated 04/06/[address] Mari: HOSPITAL COURSE: This is a very nice 77-year-old male who was found to have a mass. It certainly appeared to be a carcinoma in the left upper lobe. We worked him up and felt he would be a candidate for a resection. Upon opening the lung, getting into the patient's chest with our robotic thoracoscopic resection on 03/30/2018, I was quite pleased. We took down the fissure quite nicely, took down all of the arterial branches but one and had the vein isolated as well as the bronchus and the patient had a tear of this remaining artery. We controlled this, we had to open the chest. We eventually got control and I repaired this primarily. The patient was extubated later that day. We had a significant blood loss. The patient was transfused. He also had a creatinine of 1.71 preop. This went as high as 3 in the subsequent days, but then came back down. He looked very good the day after surgery. He was requiring no oxygen and was eating a regular diet. We had some drainage from the chest tubes. We kept it in for a few days. There was no evidence of bleeding. Frankly I was quite pleased with him. He was ambulating in the hallway. He was moving his bowels, although he required some cathartics. Hemoglobin settled down in the low 8. We left it there after used 4 units total of blood. Creatinine came back down. He was making excellent urine. Creatinine was 2.51 the day before discharge. His incisions were all clean. We removed his chest tube after he had a small pneumothorax, a small amount of fluid and on 04/05/2018, I performed an aspiration of this and his pneumothorax had resolved. I was quite happy with this. The following day, I did not really see much of pneumothorax. He had a bit more fluid, but he was on room air, ambulating and I think it is best for him to go home. 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 I told her to call me directly should there be any issues. Quite frankly, I was quite pleased with him. His incisions were clean. He had very little in the way of pain. We did send him home on tramadol and told to resume his regular medications. I will see him back in the office next week. 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 Robotic L VATS converted to open procedure. Glidescope assisted PERFECTO insertion. During surgery there was significant bleeding from the pulmonary artery which forced a change to an open thoracotomy and was difficult to control. Fluids were given followed by blood and between the blood loss and manipulation in the chest there were some brief times when the eros was showing very little pulse. His CO2 tracing dropped but never went to nothing. Along with the fluids he did receive 0.5mg epi and 2 units of vasopressin in addition to occasional small doses of ephedrine and phenylephrine. Blood loss was controlled and his vitals stabilized for the rest of the case. At the end of the procedure, we changed to a single lumen ETT and Dr Mari did a bronchoscopy which showed a little blood in the bronchi but basically clear. He is making urine, his vitals are stable, we are leaving him on the ventilator for the mean time to allow him to wake and make sure he is not acidotic. Labs and chest film are being done now - report to ICU MD. Valvular disease Mild aortic stenosis per 2016 stress test Surgical History History of cardiac cath 2016- NO STENTS [facility] History of cholecystectomy 11/22/2014. DL x2. Glidescope #3 by MDA and 7.5 ETT inserted. Grade 3 view. History of colonoscopy History of lobectomy of lung left upper lobe 03/30/2018 [facility] S/P lobectomy of lung Family History Father Cardiac disorder Other No family history of bleeding disorder Social History Smoking Status: Former smoker Second Hand Exposure: No; Hx Alcohol Use: No Hx Substance Use: No Preferred Language: French Communication Ability: Effective Visual Impairment: No Limitations Healthcare Insurance Sales Agent Required: No Beliefs That Will Affect Care: None Current Living Situation: Spouse Other Information That Helps Us Care for You: No Feels Safe at Home: Yes Safety Concerns: Feels Safe At This Time Assistive Devices: Denture - Upper, Glasses, Hearing Aid - Left, Hearing Aid - Right and Walker Review of Systems Review of Systems: The patient denies chest pain, palpitations, cough, sore throat, fevers, chills, sweats, nausea, vomiting, diarrhea , constipation, abdominal pain, pelvic pain, blood in urine or stool, dysuria, urinary frequency or urgency, lightheadedness, dizziness, headache, memory loss, loss of consciousness, imbalance, focal or generalized weakness, numbness or tingling in arms, generalized arthralgias or myalgias, neck pain, or night sweats. The review of systems is otherwise negative other than for that already noted above, and at least 10 systems have been reviewed. Physical Exam Physical Exam: The patient is awake, alert and oriented 3, well developed and well nourished, normocephalic and atraumatic, lying in bed and in no acute distress. HEENT--PERRL, EOMI, mucous membranes and oropharynx normal. Neck--supple. No JVD. No bruits. Thyroid normal, trachea midline, no adenopathy. Heart--normal S1 and S2. No murmurs, rubs or gallops. Lungs--crackles at the bases retirement up bilaterally, left worse than right. No respiratory distress, no accessory muscle use. Abdomen--normal bowel sounds and soft. Nontender. Nondistended. Obesity Extremities--no cyanosis or clubbing. 2+ bilateral pretibial pitting edema. There are good distal pulses b/l. Dermatologic--areas of mild erythema due to injury Neurologic--cranial nerves II through XII grossly intact. Rheumatologic--normal range of motion. Psychiatric--normal affect. Results & Data Results & Data ([facility]) Vital Signs (Past 12 Hours) Vital Signs Temp Pulse Pulse Resp BP BP Pulse Ox 11/08/21 22:38 70 16 145/83 H 100 11/08/21 20:53 36.9 C 78 16 147/68 H 95 Laboratory Results Laboratory Results WBC 12.21 K/uL (4.8-10.8) H 11/08/21 21:22 RBC 4.60 M/uL (4.7-6.1) L 11/08/21 21: Hgb 14.7 g/dL (14.0-18.0) 11/08/21: Hct 44.5 % (42-52) 11/08/21 21: MCV 96.7 fL (80-100) 11/08/21 21: MCH 32.0 pg (25-34) 11/08/21: MCHC 33.0 g/dL (32-36) 11/08/21: RDW Std Deviation 48.9 fL (36.4-46.3) H 11/08/21: RDW Coeff of Mac 13.7 % (11.5-14.5) 11/08/21: Plt Count 307 K/uL (130-400) 11/08/21: MPV 10.5 fL (7.4-10.4) H 11/08/21: Immature Gran % (Auto) 0.2 % 11/08/21: Neut % (Auto) 70.5 % 11/08/21: Lymph % (Auto) 17.8 % 11/08/21: [place] % (Auto) 10.5 % 11/08/21: Eos % (Auto) 0.8 % 11/08/21: Baso % (Auto) 0.2 % 11/08/21: Neut # (Auto) 8.62 K/uL (1.4-6.5) H 11/08/21: Lymph # (Auto) 2.17 K/uL (1.2-3.4) 11/08/21: [place] # (Auto) 1.28 K/uL (0.11-0.59) H 11/08/21: Eos # (Auto) 0.10 K/uL (0-0.5) 11/08/21: Baso # (Auto) 0.02 K/uL (0-0.2) 11/08/21: Immature Gran # (Auto) 0.02 K/uL (0.00-0.02) 11/08/21: Sodium 140 mmol/L (136-145) 04/16/22 21:22 Potassium 3.6 mmol/L (3.5-5.1) 11/08/21 21:22 Chloride 99 mmol/L (98-107) 11/08/21 21:22 Carbon Dioxide 31 mmol/L (21-32) 11/08/21 21:22 Anion Gap 10 (3-11) 11/08/21 21:22 BUN 39 mg/dl (6-23) H 11/08/21 21:22 Creatinine 1.89 mg/dl (0.6-1.4) H 11/08/21 21:22 Est Cr Clr Drug Dosing Not Reportable 11/08/21 21:22 Est GFR ( Amer) 38.5 ml/min 11/08/21 21: Est GFR (Non-Af Amer) 33.2 ml/min 11/08/21 21: BUN/Creatinine Ratio 20.6 (10-20) H 11/08/21 21:22 Glucose 86 mg/dl (70-99(Fasting)) 11/08/21 21: Calcium 9.6 mg/dl (8.5-10.1) 11/08/21 21:22 Magnesium 2.5 mg/dl (1.7-2.4) H 11/08/21 21:22 Total Bilirubin 0.9 mg/dl (0.2-1.0) 11/08/21 21:22 Direct Bilirubin 0.2 mg/dl (0-0.2) 11/08/21 21:22 AST 27 U/L (13-39) 11/08/21 21:22 ALT 27 U/L (7-52) 11/08/21 21:22 Alkaline Phosphatase 53 U/L (34-104) 11/08/21 21:22 Total Creatine Kinase 346 U/L (30-223) H 11/08/21 21:22 Troponin I High Sens 32.8 pg/ml (0-20) H 11/08/21 21:22 B-Natriuretic Peptide 274 pg/ml (0-100) H 11/08/21 22:29 Total Protein 7.8 gm/dl (6.0-8.3) 11/08/21 21:22 Albumin 4.3 gm/dl (3.4-5.0) 11/08/21 21:22 Urine Color Yellow 11/08/21 21:54 Urine Appearance Clear (Clear) 11/08/21 21:54 Urine pH 5.5 (4.5-7.5) 11/08/21 21:54 Ur Specific [place] 1.012 (1.000-1.030) 11/08/21 21:54 Urine Protein Negative (Negative) 11/08/21 21:54 Urine Glucose (UA) Negative (Negative) 11/08/21 21:54 Urine Ketones Negative (Negative) 11/08/21 21:54 Urine Blood Negative (Negative) 11/08/21 21:54 Urine Nitrite Negative (Negative) 11/08/21 21:54 Urine Bilirubin Negative (Negative) 11/08/21 21:54 Urine Urobilinogen Negative (Negative) 11/08/21 21:54 Ur Leukocyte Esterase Trace (Negative) H 11/08/21 21:54 Urine WBC (Auto) 1-5 /hpf (0-5) 11/08/21 21:54 Urine RBC (Auto) 0-4 /hpf (0-4) 11/08/21 21:54 U Hyaline Cast (Auto) 1-5 /lpf (0-5) 11/08/21 21:54 U Epithel Cells (Auto) 5-10 /lpf (0-5) H 11/08/21 21:54 Urine Bacteria (Auto) Negative (Negative) 11/08/21 21:54 SARS-CoV-2, RNA, NAAT NEGATIVE (NEGATIVE) 11/08/21 21:54 Code Status & VTE Plan Code Status DNR/DNI VTE Prophylaxis Plan VTE Prophylaxis will be ordered: Yes PG Care Time/CCT Total # of Minutes Spent Total Time Spent with Patient: Total time spent is greater than 50% in coordination of care (as documented) at patient's floor/unit and/or counseling patient: Coding Level of Care Code 69227 Initial Inpt Care Lvl 3 Diagnoses CHF exacerbation I50.9 CKD (chronic kidney disease) N18.9 Severe aortic stenosis I35.0 Mixed restrictive and obstructive lung disease J43.9; J98.4 Obstructive sleep apnea syndrome G47.33 Diabetes E11.9 Gastro-esophageal reflux K21.9 Hypertension I10 High cholesterol E78.00 History of lobectomy of lung Z90.2 Lung cancer C34.90 CAD (coronary artery disease) I25.10
[2021-11-09] MEDS ORDERED: GLUCOSE 40% GEL 15 GM TUBE PO PRN (00:42)
[2021-11-09] MEDS ORDERED: GLUCAGON FOR INJ 1 MG VIAL SQ PRN (00:42)
[2021-11-09] MEDS ORDERED: CARBOHYDRATES FOR HYPOGLYCEMIA PO PRN (00:42)
[2021-11-09] MEDS ORDERED: NITROGLYCERIN SL 0.4 MG/TAB TAB SL PRN (00:42)
[2021-11-09] MEDS ORDERED: DEXTROSE 50% 50 ML SYRINGE IV PRN (00:42)
[2021-11-09] MEDS ORDERED: ONDANSETRON INJ 2 MG/ML 2 ML VIAL IV PRN (00:42)
[2021-11-09] MEDS ORDERED: ALBUT/IPRATROP 3MG/0.5MG NEB 3 ML VIAL INH PRN (00:42)
[2021-11-09] MEDS ORDERED: GLUCOSE 10 TABS/TUBE PO PRN (00:42)
[2021-11-09] MEDS: METOPROLOL TARTRATE 50 MG TAB PO SCH ×3 (01:33→20:57)
[2021-11-09] MEDS: POTASSIUM CHLORIDE CRTAB 20 MEQ TABCR PO SCH ×3 (01:34→20:48)
[2021-11-09] MEDS: ACETAMINOPHEN 325 MG TAB PO PRN ×2 (01:38→20:53)
[2021-11-09] MEDS: DICLOFENAC SOD 1% GEL 100 GM TUBE EXT PRN ×2 (04:40→16:30)
[2021-11-09 06:16] LABS: Basophils # (auto) 0.02 K/uL (0-0.2); Basophils % (auto) 0.2 %; Eosinophils # (auto) 0.12 K/uL (0-0.5); Eosinophils % (auto) 1.1 %; Immature Granulocytes # (auto) 0.03 K/uL (0.00-0.02); Immature Granulocytes % (auto) 0.3 %; Lymphocytes # (auto) 1.84 K/uL (1.2-3.4); Lymphocytes % (auto) 16.7 %; Mean Corpuscular Hemoglobin 31.7 pg (25-34); Mean Corpuscular Hgb Conc 32.6 g/dL (32-36); Mean Corpuscular Volume 97.3 fL (80-100); Mean Platelet Volume 10.4 fL (7.4-10.4); Monocytes # (auto) 1.12 K/uL (0.11-0.59); Monocytes % (auto) 10.1 %; Neutrophils # (auto) 7.91 K/uL (1.4-6.5); Neutrophils % (auto) 71.6 %; Platelet Count 292 K/uL (130-400); RDW Coefficient of Variation 13.7 % (11.5-14.5); RDW Standard Deviation 49.1 fL (36.4-46.3); Red Blood Count 4.42 M/uL (4.7-6.1); White Blood Count 11.04 K/uL (4.8-10.8)
--- NOTE | 2021-11-09 06:36 | XRay Report ---
XR chest 1V portable CLINICAL HISTORY: sob, weak. COMPARISON STUDY: 01/31/2019 TECHNIQUE: 1 view of the chest FINDINGS: Single frontal view of the chest demonstrates the heart size to be mildly enlarged. There is a decrea sed inspiratory effort with elevation of the hemidiaphragms and crowding of the bronchovascular chayo ngs at the lung bases and centrally. However, there is also asymmetric prominence of interstitial and alveolar markings at the left lung base. The presence of a retrocardiac infiltrate cannot be exclude d. Follow-up PA and lateral radiographs are recommended for further evaluation. There is no evidence for pleural effusion. There is no evidence for vascular congestion. There is no acute osseous patholo gy. IMPRESSION: 1. Decreased inspiration with asymmetric interstitial and alveolar opacities at the left lung base. R etrocardiac pneumonia cannot be excluded and follow-up PA and lateral radiographs are recommended. ACT 112: Negative or not required by law. Electronically signed by: Alberto Dawn M.D. 11/09/2021 6:34 AM
[2021-11-09 06:43] LABS: Troponin I High Sensitivity 30.4 pg/ml (0-20)
[2021-11-09 06:46] LABS: Albumin Level 3.9 gm/dl (3.4-5.0); BUN Creatinine Ratio 21.3 (10-20); Calcium 9.3 mg/dl (8.5-10.1); Creatinine Clr Calc Pharmacy 37.9 ml/min; Est GFR (African American) 38.8 ml/min; Est GFR (Non-African American) 33.5 ml/min; Magnesium 2.5 mg/dl (1.7-2.4); Phosphorus 4.7 mg/dl (2.5-4.9); Potassium 3.5 mmol/L (3.5-5.1)
--- NOTE | 2021-11-09 07:33 | Electrocardiogram Report ---
Test Reason : Blood Pressure : / mmHG Vent. Rate : 079 BPM Atrial Rate : 079 BPM P-R Int : 168 ms QRS Dur : 088 ms QT Int : 398 ms P-R-T Axes : 061 010 010 degrees QTc Int : 456 ms Normal sinus rhythm Left ventricular hypertrophy with repolarization abnormality Abnormal ECG When compared with ECG of 30-MAR-2018 15:35, T wave inversion now evident in Lateral leads Confirmed by Young Francois ([id number]) on 11/09/2021 7:33:30 AM Referred By: Chris Richards Confirmed By:Kwadwo Francois
--- NOTE | 2021-11-09 07:39 | Electrocardiogram Report ---
Test Reason : Blood Pressure : / mmHG Vent. Rate : 063 BPM Atrial Rate : 063 BPM P-R Int : 172 ms QRS Dur : 094 ms QT Int : 440 ms P-R-T Axes : 053 018 -63 degrees QTc Int : 451 ms Normal sinus rhythm Left ventricular hypertrophy with repolarization abnormality Abnormal ECG When compared with ECG of 08-NOV-2021 21:14, (unconfirmed) No significant change was found Confirmed by Young Francois ([id number]) on 11/09/2021 7:38:42 AM Referred By: Chris Richards Confirmed By:Kwadwo Francois
[2021-11-09] MEDS ORDERED: NON-FORMULARY MEDICATION (Coenzyme Q10 [Coq-10] 100 mg Capsule) PO SCH (09:00)
[2021-11-09] MEDS ORDERED: TRIAMTERENE/HCTZ 37.5/25MG TAB PO SCH (09:00)
[2021-11-09] MEDS ORDERED: FUROSEMIDE 40 MG/4 ML VIAL IV SCH (09:00)
[2021-11-09] MEDS: INSULIN ASPART PER UNIT SC SCH ×4 (09:44→20:47)
[2021-11-09] MEDS: guaiFENesin 600 MG TABCR PO SCH ×2 (09:44→20:46)
[2021-11-09] MEDS: ISOSORBIDE MONO EXTENDED REL 60 MG TABCR PO SCH (09:45)
[2021-11-09] MEDS: ASPIRIN 81 MG ECTAB PO SCH ×2 (09:45→20:46)
[2021-11-09] MEDS: FERROUS SULFATE 325 MG TAB PO SCH (09:46)
[2021-11-09] MEDS: PANTOprazole 40 MG TAB PO SCH (09:46)
[2021-11-09] MEDS: MULTIVITAMIN TAB PO SCH (09:46)
[2021-11-09] MEDS: UMECLIDINIUM/VILANTEROL 62.5/25MCG 7 PUFFS/INHALER INH SCH (09:47)
[2021-11-09] MEDS: ENOXAPARIN INJ 40 MG/0.4 ML SYR SQ SCH (09:47)
[2021-11-09] MEDS: INSULIN LISPRO 75%/25% SQ SCH ×2 (09:48→17:00)
--- NOTE | 2021-11-09 10:08 | Hospitalist Progress Note ---
Date of Service November 09, 2021 Assessment & Plan (1) CHF exacerbation: Plan: -Likely caused by excessive salt intake via deer bologna in short period of time -Troponins of low 30s- likely demand ischemia from physiologic stress, EKG does not show concern for infarct -CXR without overt pulmonary edema but demonstrating some opacities of L lung base -Diuresis with Lasix 40 mg IV daily, transition to home Lasix 40 mg PO pending volume status and clinical exam -Continue K supplementation as diuresis continues -Trend BMP, daily weights, I's/O's -Repeat echocardiogram- EF 55-60% down from 60-65% in April 2021 -Will cautiously diurese for now given history of CKD + severe aortic stenosis (2) Severe aortic stenosis: Plan: Repeat echocardiogram pending Pt will likely need surgical intervention, anticipate this will be done as outpatient once CHF exacerbation resolves (3) CKD (chronic kidney disease): Plan: Creatinine 1.89 upon admission, with range 1.64-1.91 Trend BMP Expect slightly higher increases of creatinine with diuresis due to aortic stenosis' contribution to kidney hypoperfusion (4) Mixed restrictive and obstructive lung disease: Plan: 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 twice daily, routine inhalers daily (5) CAD (coronary artery disease): Plan: Continue aspirin, metoprolol, isosorbide dinitrate, simvastatin Consider switch to high intensity statin therapy (6) Diabetes: Plan: Holding home dulaglutide Humalog 75/25 home regimen altered- 95u qAM + 60u qPM switched to 30u qAM + 20u qPM (7) Hypertension: Plan: -Continue isosorbide dinitrate, metoprolol -Holding home triamterene/HCTZ (8) History of lobectomy of lung: Plan: See above (9) Lung cancer: Plan: See above (10) High cholesterol: Plan: Continue simvastatin 20 mg at bedtime Consider switch to high intensity statin given pt's multiple risk factors (11) Gastro-esophageal reflux: Plan: Continue omeprazole/pantoprazole (12) Obstructive sleep apnea syndrome: Plan: CPAP at bedtime as needed Admission and Anticipated Discharge Date Admission Date: November 08, 2021 Supervising Physician Co-Signing Physician Notes I personally examined the patient and verified all mccrary points of history and exam, discussed case, and agree with decision making with Dr Fuller. Feeling a bit better than whenever he came in, although still some shortness of breath on and off even with rest. 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 Lungs scattered rhonchi no accessory muscle use good effort. No focal neuro deficits although he is a little bit hard of hearing. Shortness of breath -deer bologna plus severe aortic stenosis equals acute on chronic diastolic CHF exacerbation -Educated on sodium restriction -Cautious diuresis -Consider TAVR as outpatient PT/OT eval and treat Otherwise as above Subjective No acute events overnight. Pt feels well currently. Denies any dyspnea or chest pain. Doesn't feel particularly bloated. Notes some leg pain bilaterally that's relieved by sitting upright with head elevated. Review of Systems Review of Systems: Per subjective Physical Exam Physical Exam: The patient is awake, alert and oriented 3, well developed and well nourished, normocephalic and atraumatic, lying in bed and in no acute distress. HEENT--PERRL, EOMI, mucous membranes and oropharynx normal. Neck--supple. No JVD. No bruits. Thyroid normal, trachea midline, no adenopathy. Heart--normal S1 and S2. +systolic murmur over LUSB, no rubs or gallops. Lungs- diffuse crackles bilaterally. No respiratory distress, no accessory muscle use. Abdomen--normal bowel sounds and soft. Nontender. Nondistended. Obesity Extremities--no cyanosis or clubbing. 2+ bilateral pretibial pitting edema. Distal pulses 2+ b/l. Results & Data Results & Data ([facility]) Vital Signs (Past 12 Hours) Vital Signs Temp Pulse Resp BP Pulse Ox 11/09/21 08:02 36.7 C 71 18 143/48 H 96 11/09/21 03:17 36.8 C 64 18 110/61 93 11/09/21 00:43 36.7 C 77 22 116/55 L 97 11/09/21 00:00 67 20 145/63 H 98 11/08/21 22:38 70 16 145/83 H 100 Resident Activity Tracking Resident Involvement: Resident Care Provided Care Provided: Adult Hospital Medicine
--- NOTE | 2021-11-09 10:45 | Cardiology Consultation ---
Date of Consultation November 09, 2021 Assessment & Plan (1) Severe aortic stenosis: (2) Dyspnea on exertion: 1. Dyspnea: He is known to have an element of dyspnea chronically. This is due to a combination of his valvular heart disease and known lung disease. Difficult to say if this is markedly worse. His x-rays certainly not normal and he may have an element of pulmonary vascular congestion. He did receive a diuretic in the emergency room in another dose today. I would be cautious with over diuresis. I do not think his breathing difficulty represented his primary concern or need to be treated very aggressively at this point. Can monitor her symptoms and consider additional diuretics tomorrow. He is currently scheduled for his usual outpatient dose which seems fine for now. 2. Aortic stenosis: He is known to have severe aortic stenosis. He likely has some symptoms related to his valvular heart disease. However, current limitations are more related to his lower extremity weakness and difficulty walking. There has been a discussion in the past about a valve replacement. He is very hesitant to commit to any procedures given his comorbidities and the potential for complication. His current velocity seems to involve simply tolerating the symptoms and reducing his activity as needed. I think we can monitor his symptoms on his current diuretic regimen while his ambulatory difficulty is addressed. History of Present Illness Reason for Consultation: Elevated troponin, known aortic stenosis Requesting Physician: Dameon Attending Physician: Philip Poe DO History of Present Illness The patient is a 80-year-old gentleman with a history of severe aortic stenosis. He is a difficult historian. However, it seems that for a few weeks he has been having some progressive difficulty with ambulation. This seems to have gotten worse over the past week. Involved a sense of discomfort in the lower extremities and increased edema. Also inability to walk due to trouble bending and using the legs. He had been in contact with his primary care physician over the course of the week and based on the progressive nature of the symptoms was advised to go to the emergency room. It seems that he even had some difficulty getting off of the toilet yesterday. In this setting he has had an element of dyspnea. However, he does have chronic dyspnea as well. He has difficulty explaining whether this is notably worse lately. He is quite clear that his current limitation primarily involves an inability to ambulate rather than dyspnea on exertion. He does have some episodes of chest discomfort at times. The seem to occur at rest and are common after eating. They tend to resolve without any specific intervention. He does not report exertional chest pain. He has very mild dizziness at times, this is not a presyncopal symptom. He has not had presyncope or syncope. No sense of palpitations. Allergies Allergy/AdvReac Type Severity Reaction Status Date / Time No Known Drug Allergies Allergy Verified 06/02/21 14:32 sulfamethoxazole Allergy Hives Unverified 11/08/21 22:38 [From Bactrim] trimethoprim [From Bactrim] Allergy Hives Unverified 11/08/21 22:38 Home Medications Medication Instructions Recorded Confirmed Type aspirin 81 mg tablet,delayed 81 mg PO BID 04/25/18 11/08/21 History release coenzyme Q10 100 mg capsule 200 mg PO QAM 04/25/18 11/08/21 History (CoQ-10) metoprolol tartrate 50 mg tablet 50 mg PO BID 04/25/18 11/08/21 History multivitamin 1 tab PO QAM 04/25/18 11/08/21 History omeprazole magnesium 20 mg 20 mg PO QAM 04/25/18 11/08/21 History tablet,delayed release (Prilosec OTC) simvastatin 20 mg tablet 20 mg PO HS 04/25/18 11/08/21 History triamterene 37.5 1 tab PO QAM 04/25/18 11/08/21 History mg-hydrochlorothiazide 25 mg tablet furosemide 40 mg tablet 40 mg PO DAILY tab 04/27/19 11/08/21 History guaifenesin 1,200 mg tablet, 1,200 mg PO BID 04/27/19 11/08/21 History extended release 12 hr (Mucinex) CPAP Machine #1 ea 07/17/19 06/02/21 Rx ferrous sulfate 324 mg (65 mg 324 mg PO DAILY tab 07/17/19 11/08/21 History iron) tablet,delayed release insulin lispro protamine-lispro 60 unit SUBCUT QPM ml 03/20/20 11/08/21 History 100 unit/mL (75-25) subcutaneous susp (Humalog Mix 75-25(U-100)Insuln) insulin lispro protamine-lispro 95 unit SUBCUT QAM ml 03/20/20 11/08/21 History 100 unit/mL (75-25) subcutaneous susp (Humalog Mix 75-25(U-100)Insuln) CPAP Supplies #1 ea 05/23/20 06/02/21 Rx nebulizers (Aeroneb Go Nebulizer) #1 ea 05/23/20 06/02/21 Rx Flutter Valve #1 ea 05/24/20 06/02/21 Rx dulaglutide 0.75 mg/0.5 mL 0.75 mg SUBCUT .weekly ml 11/08/20 11/08/21 History subcutaneous pen injector (Trulicity) potassium chloride 10 mEq 10 meq PO DAILY 11/08/20 11/08/21 History capsule,extended release ipratropium 0.5 mg-albuterol 3 mg 3 ml INHALATION Q8H PRN #270 ml 11/25/20 11/08/21 Rx (2.5 mg base)/3 mL nebulization soln fluticasone propionate 50 1 spray INTRANASAL DAILY #9.9 g 03/24/21 11/08/21 Rx mcg/actuation nasal spray,suspension (Allergy Relief (fluticasone)) umeclidinium 62.5 mcg-vilanterol 1 inh INHALATION DAILY #60 ea 04/14/21 11/08/21 Rx 25 mcg/actuation powdr for inhalation (Anoro Ellipta) astragalus root 470 mg capsule 470 mg PO DAILY 11/08/21 11/08/21 History isosorbide mononitrate 60 mg 60 mg PO DAILY 11/08/21 11/08/21 History tablet,extended release 24 hr Patient History Medical History (Updated 11/09/21 @ 01:23 by Luis Antonio Xiao MD) Abnormal stress echo Anemia CAD (coronary artery disease) NON-OBSTRUCTIVE Cholelithiasis CKD (chronic kidney disease) baseline creatinine 1.6 Diabetes Diabetes mellitus, type 2 IDDM, +B/L FEET NEUROPATHY Gastro-esophageal reflux GERD (gastroesophageal reflux disease) Hearing deficit wears hearing aids Hiatal hernia High cholesterol Hyperlipidemia Hypertension Hypertension Impacted cerumen of left ear Lip ulcer Lung cancer Discharge summary dated 04/06/[address] Mari: HOSPITAL COURSE: This is a very nice 77-year-old male who was found to have a mass. It certainly appeared to be a carcinoma in the left upper lobe. We worked him up and felt he would be a candidate for a resection. Upon opening the lung, getting into the patient's chest with our robotic thoracoscopic resection on 03/30/2018, I was quite pleased. We took down the fissure quite nicely, took down all of the arterial branches but one and had the vein isolated as well as the bronchus and the patient had a tear of this remaining artery. We controlled this, we had to open the chest. We eventually got control and I repaired this primarily. The patient was extubated later that day. We had a significant blood loss. The patient was transfused. He also had a creatinine of 1.71 preop. This went as high as 3 in the subsequent days, but then came back down. He looked very good the day after surgery. He was requiring no oxygen and was eating a regular diet. We had some drainage from the chest tubes. We kept it in for a few days. There was no evidence of bleeding. Frankly I was quite pleased with him. He was ambulating in the hallway. He was moving his bowels, although he required some cathartics. Hemoglobin settled down in the low 8. We left it there after used 4 units total of blood. Creatinine came back down. He was making excellent urine. Creatinine was 2.51 the day before discharge. His incisions were all clean. We removed his chest tube after he had a small pneumothorax, a small amount of fluid and on 04/05/2018, I performed an aspiration of this and his pneumothorax had resolved. I was quite happy with this. The following day, I did not really see much of pneumothorax. He had a bit more fluid, but he was on room air, ambulating and I think it is best for him to go home. 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 I told her to call me directly should there be any issues. Quite frankly, I was quite pleased with him. His incisions were clean. He had very little in the way of pain. We did send him home on tramadol and told to resume his regular medications. I will see him back in the office next week. 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 Robotic L VATS converted to open procedure. Glidescope assisted PERFECTO insertion. During surgery there was significant bleeding from the pulmonary artery which forced a change to an open thoracotomy and was difficult to control. Fluids were given followed by blood and between the blood loss and manipulation in the chest there were some brief times when the eros was showing very little pulse. His CO2 tracing dropped but never went to nothing. Along with the fluids he did receive 0.5mg epi and 2 units of vasopressin in addition to occasional small doses of ephedrine and phenylephrine. Blood loss was controlled and his vitals stabilized for the rest of the case. At the end of the procedure, we changed to a single lumen ETT and Dr Mari did a bronchoscopy which showed a little blood in the bronchi but basically clear. He is making urine, his vitals are stable, we are leaving him on the ventilator for the mean time to allow him to wake and make sure he is not acidotic. Labs and chest film are being done now - report to ICU MD. Valvular disease Mild aortic stenosis per 2016 stress test Surgical History History of cardiac cath 2016- NO STENTS [facility] History of cholecystectomy 11/22/2014. DL x2. Glidescope #3 by ELIANA and 7.5 ETT inserted. Grade 3 view. History of colonoscopy History of lobectomy of lung left upper lobe 03/30/2018 [facility] S/P lobectomy of lung Family History Father Cardiac disorder Other No family history of bleeding disorder Social History Smoking Status: Former smoker Second Hand Exposure: No; Hx Alcohol Use: No Hx Substance Use: No Preferred Language: Chinese Communication Ability: Effective Visual Impairment: No Limitations Certified Physical Therapist Assistant Required: No Beliefs That Will Affect Care: None Current Living Situation: Spouse Other Information That Helps Us Care for You: No Feels Safe at Home: Yes Safety Concerns: Feels Safe At This Time Assistive Devices: Denture - Upper, Glasses, Hearing Aid - Left, Hearing Aid - Right and Walker Review of Systems Review of Systems: Per HPI Physical Exam Physical Exam: The patient is alert and oriented. Mood and affect appeared normal. He answered all questions appropriately. HEENT: Pupils are equal and reactive to light and accommodation. Extraocular movements are intact. The sclerae are anicteric. Neuro: Cranial nerves intact Lungs: Coarse upper respiratory sounds. Occasional crackle bilaterally. Reduced breath sounds on the left. Cardiac: Heart demonstrates a regular rate and rhythm. Normal S1 and S2. High-pitched crescendo systolic. Pulses: The patient has palpable radial pulses bilaterally that are equal in intensity Extremities: There was no evidence of hypoperfusion. There is no cyanosis or clubbing. Mild lower extremity edema bilateral. Skin: He had several excoriations and erythematous lesions on both lower extremities. y. Results & Data ([facility]) Vital Signs (Past 12 Hours) Vital Signs Temp Pulse Resp BP Pulse Ox 11/09/21 08:02 36.7 C 71 18 143/48 H 96 11/09/21 03:17 36.8 C 64 18 110/61 93 11/09/21 00:43 36.7 C 77 22 116/55 L 97 11/09/21 00:00 67 20 145/63 H 98 11/08/21 22:38 70 16 145/83 H 100 Laboratory Results Abnormal Lab Results 11/08/21 11/08/21 11/08/21 21:22 21:22 21:54 WBC 12.21 H RBC 4.60 L Hgb 14.7 Hct 44.5 MCV 96.7 MCH 32.0 MCHC 33.0 RDW Std Deviation 48.9 H RDW Coeff of Mac 13.7 Plt Count 307 MPV 10.5 H Immature Gran % (Auto) 0.2 Neut % (Auto) 70.5 Lymph % (Auto) 17.8 [place] % (Auto) 10.5 Eos % (Auto) 0.8 Baso % (Auto) 0.2 Neut # (Auto) 8.62 H Lymph # (Auto) 2.17 [place] # (Auto) 1.28 H Eos # (Auto) 0.10 Baso # (Auto) 0.02 Immature Gran # (Auto) 0.02 Sodium 140 Potassium 3.6 Chloride 99 Carbon Dioxide 31 Anion Gap 10 BUN 39 H Creatinine 1.89 H Est Cr Clr Drug Dosing Not Reportable Est GFR ( Amer) 38.5 Est GFR (Non-Af Amer) 33.2 BUN/Creatinine Ratio 20.6 H Glucose 86 POC Glucose Calcium 9.6 Phosphorus Magnesium 2.5 H Total Bilirubin 0.9 Direct Bilirubin 0.2 AST 27 ALT 27 Alkaline Phosphatase 53 Total Creatine Kinase 346 H Troponin I High Sens 32.8 H B-Natriuretic Peptide Total Protein 7.8 Albumin 4.3 Urine Color Yellow Urine Appearance Clear Urine pH 5.5 Ur Specific [place] 1.012 Urine Protein Negative Urine Glucose (UA) Negative Urine Ketones Negative Urine Blood Negative Urine Nitrite Negative Urine Bilirubin Negative Urine Urobilinogen Negative Ur Leukocyte Esterase Trace H Urine WBC (Auto) 1-5 Urine RBC (Auto) 0-4 U Hyaline Cast (Auto) 1-5 U Epithel Cells (Auto) 5-10 H Urine Bacteria (Auto) Negative SARS-CoV-2, RNA, NAAT 11/08/21 11/08/21 11/09/21 21:54 22:29 05:33 WBC RBC Hgb Hct MCV MCH MCHC RDW Std Deviation RDW Coeff of Mac Plt Count MPV Immature Gran % (Auto) Neut % (Auto) Lymph % (Auto) [place] % (Auto) Eos % (Auto) Baso % (Auto) Neut # (Auto) Lymph # (Auto) [place] # (Auto) Eos # (Auto) Baso # (Auto) Immature Gran # (Auto) Sodium 141 Potassium 3.5 Chloride 98 Carbon Dioxide 34 H Anion Gap 9 BUN 40 H Creatinine 1.88 H Est Cr Clr Drug Dosing 37.9 Est GFR ( Amer) 38.8 Est GFR (Non-Af Amer) 33.5 BUN/Creatinine Ratio 21.3 H Glucose 103 H POC Glucose Calcium 9.3 Phosphorus 4.7 Magnesium 2.5 H Total Bilirubin Direct Bilirubin AST ALT Alkaline Phosphatase Total Creatine Kinase Troponin I High Sens 30.4 H B-Natriuretic Peptide 274 H Total Protein Albumin 3.9 Urine Color Urine Appearance Urine pH Ur Specific [place] Urine Protein Urine Glucose (UA) Urine Ketones Urine Blood Urine Nitrite Urine Bilirubin Urine Urobilinogen Ur Leukocyte Esterase Urine WBC (Auto) Urine RBC (Auto) U Hyaline Cast (Auto) U Epithel Cells (Auto) Urine Bacteria (Auto) SARS-CoV-2, RNA, NAAT NEGATIVE 11/09/21 11/09/21 05:33 07:46 WBC 11.04 H RBC 4.42 L Hgb 14.0 Hct 43.0 MCV 97.3 MCH 31.7 MCHC 32.6 RDW Std Deviation 49.1 H RDW Coeff of Mac 13.7 Plt Count 292 MPV 10.4 Immature Gran % (Auto) 0.3 Neut % (Auto) 71.6 Lymph % (Auto) 16.7 [place] % (Auto) 10.1 Eos % (Auto) 1.1 Baso % (Auto) 0.2 Neut # (Auto) 7.91 H Lymph # (Auto) 1.84 [place] # (Auto) 1.12 H Eos # (Auto) 0.12 Baso # (Auto) 0.02 Immature Gran # (Auto) 0.03 H Sodium Potassium Chloride Carbon Dioxide Anion Gap BUN Creatinine Est Cr Clr Drug Dosing Est GFR ( Amer) Est GFR (Non-Af Amer) BUN/Creatinine Ratio Glucose POC Glucose 114 H Calcium Phosphorus Magnesium Total Bilirubin Direct Bilirubin AST ALT Alkaline Phosphatase Total Creatine Kinase Troponin I High Sens B-Natriuretic Peptide Total Protein Albumin Urine Color Urine Appearance Urine pH Ur Specific [place] Urine Protein Urine Glucose (UA) Urine Ketones Urine Blood Urine Nitrite Urine Bilirubin Urine Urobilinogen Ur Leukocyte Esterase Urine WBC (Auto) Urine RBC (Auto) U Hyaline Cast (Auto) U Epithel Cells (Auto) Urine Bacteria (Auto) SARS-CoV-2, RNA, NAAT Diagnostic Findings Chest x-ray obtained the time admission was suggestive of interstitial edema, left worse than right. ECG Additional Comments: EKG obtained the time admission revealed normal sinus rhythm with nonspecific ST and T-wave changes. PG Care Time/CCT Total # of Minutes Spent Total Time Spent with Patient: Total time spent is greater than 50% in coordination of care (as documented) at patient's floor/unit and/or counseling patient: Coding Level of Care Code 29627 Initial Inpt Care Lvl 3 Diagnoses Severe aortic stenosis I35.0 Dyspnea on exertion R06.09
--- NOTE | 2021-11-09 12:28 | XCELERA ---
[id number]
--- NOTE | 2021-11-09 17:13 | Billing Data ---
Date of Service November 09, 2021 Coding Level of Care Code 99142 Subseq Hosp Care Lvl 3
[2021-11-09] MEDS: SIMVASTATIN 20 MG TAB PO SCH (20:49)
[2021-11-10 07:36] LABS: Estimated Average Glucose 186 mg/dl; Hemoglobin A1C 8.1 % (4.5-5.6)
[2021-11-10] MEDS: INSULIN ASPART PER UNIT SC SCH ×4 (07:47→20:35)
[2021-11-10 07:50] LABS: Albumin Level 3.8 gm/dl (3.4-5.0); BUN Creatinine Ratio 26.2 (10-20); Calcium 9.2 mg/dl (8.5-10.1); Creatinine Clr Calc Pharmacy 43.6 ml/min; Est GFR (African American) 45.7 ml/min; Est GFR (Non-African American) 39.5 ml/min; Magnesium 2.4 mg/dl (1.7-2.4); Phosphorus 3.8 mg/dl (2.5-4.9); Potassium 3.7 mmol/L (3.5-5.1)
[2021-11-10] MEDS: INSULIN LISPRO 75%/25% SQ SCH ×2 (09:14→17:08)
[2021-11-10] MEDS: ISOSORBIDE MONO EXTENDED REL 60 MG TABCR PO SCH (09:15)
[2021-11-10] MEDS: ASPIRIN 81 MG ECTAB PO SCH ×2 (09:15→20:33)
[2021-11-10] MEDS: METOPROLOL TARTRATE 50 MG TAB PO SCH ×2 (09:15→20:34)
[2021-11-10] MEDS: FUROSEMIDE 40 MG TAB PO SCH (09:15)
[2021-11-10] MEDS: FERROUS SULFATE 325 MG TAB PO SCH (09:15)
[2021-11-10] MEDS: guaiFENesin 600 MG TABCR PO SCH ×2 (09:15→20:34)
[2021-11-10] MEDS: POTASSIUM CHLORIDE CRTAB 20 MEQ TABCR PO SCH ×2 (09:15→20:33)
[2021-11-10] MEDS: UMECLIDINIUM/VILANTEROL 62.5/25MCG 7 PUFFS/INHALER INH SCH (09:16)
[2021-11-10] MEDS: PANTOprazole 40 MG TAB PO SCH (09:16)
[2021-11-10] MEDS: ENOXAPARIN INJ 40 MG/0.4 ML SYR SQ SCH (09:16)
[2021-11-10] MEDS: MULTIVITAMIN TAB PO SCH (09:16)
--- NOTE | 2021-11-10 09:26 | Hospitalist Progress Note ---
Date of Service November 10, 2021 Assessment & Plan (1) CHF exacerbation: Plan: -Likely caused by excessive salt intake via deer bologna in short period of time in setting of severe aortic stenosis -Troponins of low 30s- likely demand ischemia from physiologic stress, EKG does not show concern for infarct -CXR without overt pulmonary edema but demonstrating some opacities of L lung base -Lasix 40 mg IV switched to PO today, continue home Lasix 40 mg PO daily in AM -Continue K supplementation as diuresis continues -Trend BMP, daily weights, I's/O's -Repeat echocardiogram- EF 55-60% down from 60-65% in April 2021, worsened aortic stenosis -Will cautiously diurese for now given history of CKD + severe aortic stenosis (2) Severe aortic stenosis: Plan: Suspect this was a strong contributor to current CHF exacerbation Pt will very likely need surgical intervention, anticipate this will be done as outpatient once CHF exacerbation resolves Attempted to discuss need for management with patient today but limited by hearing impairment + degree of cognitive impairment (3) CKD (chronic kidney disease): Plan: Creatinine 1.89 upon admission, with range 1.64-1.91 Trend BMP Expect slightly higher increases of creatinine with diuresis due to aortic stenosis' contribution to kidney hypoperfusion Pt would benefit from RADHA/ARB therapy given comorbidities of CKD + DM2 + CHF, consider initiating during this stay. BPs stable currently. (4) Mixed restrictive and obstructive lung disease: Plan: 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 twice daily, routine inhalers daily (5) CAD (coronary artery disease): Plan: Continue aspirin, metoprolol, isosorbide dinitrate, simvastatin (6) Diabetes: Plan: Holding home dulaglutide Humalog 75/25 home regimen altered- 95u qAM + 60u qPM switched to 30u qAM + 20u qPM on admission BSGs stable (7) Hypertension: Plan: -Continue isosorbide dinitrate, metoprolol -Holding home triamterene/HCTZ -BPs currently stable (8) History of lobectomy of lung: Plan: See above (9) Lung cancer: Plan: See above (10) High cholesterol: Plan: Continue simvastatin 20 mg at bedtime (11) Gastro-esophageal reflux: Plan: Continue omeprazole/pantoprazole (12) Obstructive sleep apnea syndrome: Plan: CPAP at bedtime as needed Admission and Anticipated Discharge Date Admission Date: November 08, 2021 Supervising Physician Co-Signing Physician Notes Patient seen and examined with PGY-1 Dr. Fuller. Agree with history, exam findings, assessment and plan of care as outlined. In brief, Mr. Bronson is a 80 year old male with hx of CAD, severe aortic stenosis, HTN, CKD admitted with CHF exacerbation. Today, feels well. No dyspnea at rest. Feels that leg edema is improving and close to baseline. He is interested in pursuing possible aortic valve replacement in the future. He does remember that his outpatient chalk cutter had discussed this with him in the past. Vital signs and nursing notes reviewed. Well appearing. Heart with systolic murmur consistent with aortic stenosis. Trace lower extremity edema. Lungs with diminished breath sounds in the bases. No crackles. Abdomen is soft, nontender. 1. CHF exacerbation in thes setting of known CAD. Diuresised with IV Lasix. Switching back to PO Lasix today. Continue metoprolol tartrate 50mg BID, isosorbide mononitrate 60mg daily, ASA 81mg BID. Continue home simvastatindid have a lipid profile done earlier this month that is within a reasonable range. EF 55-60%. 2. Severe aortic stenosis. Severe calcific aortic valve stenosis. Like contributor to his dyspnea. 3. CKD. Seems at baseline and holding up well with diuresis. 4. Mixed restrictive and obstructive lung disease in the setting of adenocarcinoma s/p left upper lobe lobectomy. [place], 5. Diabetes. Humalog 75/25 30U qZM and 20 qPM. Holding dulaglutide. Dispo: PT/OT eval pending. Subjective No acute events overnight. Pt feels well currently. Denies any dyspnea or chest pain, bloating. Notes some leg pain bilaterally that's relieved by sitting upright with head elevated, is improved today compared to day prior. Review of Systems Review of Systems: Per subjective Physical Exam Physical Exam: General: no acute distress. HEENT--Mucous membranes moist and oropharynx normal. Neck--supple. No JVD. No bruits. Thyroid normal, trachea midline, no adenopathy. Heart--normal S1 and S2. +systolic murmur over LUSB, no rubs or gallops. Lungs- diffuse crackles bilaterally but decreased from day prior. No respiratory distress, no accessory muscle use. Abdomen- Soft. Nontender. Nondistended. Obesity Extremities--no cyanosis or clubbing. Trace bilateral LE edema. Distal pulses 2+ b/l. Results & Data Results & Data ([facility]) Vital Signs (Past 12 Hours) Vital Signs Temp Pulse Pulse Resp BP Pulse Ox 11/10/21 08:02 36.6 C 79 20 134/64 97 11/10/21 04:17 36.6 C 74 19 135/59 L 93 11/09/21 23:53 36.7 C 64 18 121/58 L 93 11/09/21 22:18 63 Resident Activity Tracking Resident Involvement: Resident Care Provided Care Provided: Adult Hospital Medicine
[2021-11-10 09:42] LABS: Basophils # (auto) 0.02 K/uL (0-0.2); Basophils % (auto) 0.2 %; Eosinophils # (auto) 0.05 K/uL (0-0.5); Eosinophils % (auto) 0.4 %; Hematocrit (blood only) 42.9 % (42-52); Hemoglobin 14.3 g/dL (14.0-18.0); Immature Granulocytes # (auto) 0.03 K/uL (0.00-0.02); Immature Granulocytes % (auto) 0.2 %; Lymphocytes # (auto) 1.53 K/uL (1.2-3.4); Lymphocytes % (auto) 12.2 %; Mean Corpuscular Hemoglobin 32.3 pg (25-34); Mean Corpuscular Hgb Conc 33.3 g/dL (32-36); Mean Corpuscular Volume 96.8 fL (80-100); Mean Platelet Volume 10.6 fL (7.4-10.4); Monocytes # (auto) 1.27 K/uL (0.11-0.59); Monocytes % (auto) 10.1 %; Neutrophils # (auto) 9.64 K/uL (1.4-6.5); Neutrophils % (auto) 76.9 %; Platelet Count 295 K/uL (130-400); RDW Coefficient of Variation 13.4 % (11.5-14.5); RDW Standard Deviation 47.8 fL (36.4-46.3); Red Blood Count 4.43 M/uL (4.7-6.1); White Blood Count 12.54 K/uL (4.8-10.8)
--- NOTE | 2021-11-10 12:40 | Cardiology Progress Note ---
Date of Service November 10, 2021 Assessment & Plan (1) Severe aortic stenosis: (2) Dyspnea on exertion: Plan: 1. Dyspnea: Stable. Her combination of his intrinsic lung disease and aortic stenosis. He has affected a good diuresis over the past 2 days. Renal function has been stable. We can likely continue with his current daily dose of Lasix and monitor his renal function. I would have a low threshold for switching him back to his usual oral regimen. 2. Aortic stenosis: Severe. This morning he reported wanting to be evaluated for an aortic valve replacement. It seems that he has had a discussion in the past about being evaluated at [facility]. This can be accomplished on an outpatient basis. From a cardiac standpoint he is quite stable. His main concern appears to be his inability to ambulate. We will see what his disposition is regarding ambulation and his need for rehab before committing to an outpatient evaluation for his aortic valve. Admission and Anticipated Discharge Date Admission Date: November 08, 2021 Subjective This morning the patient reported continued weakness in the legs. He states that he could not stand without assistance. He does not report significant pain, simply weakness. He states that his breathing is "okay". Not a big change. Certainly not limiting his activity. He still has some congestion. Review of Systems Review of Systems: Per HPI Physical Exam Physical Exam: The patient is alert and oriented. Mood and affect appeared normal. He answered all questions appropriately. HEENT: Pupils are equal and reactive to light and accommodation. Extraocular movements are intact. The sclerae are anicteric. Neuro: Cranial nerves intact Lungs: Coarse upper respiratory sounds. Occasional crackle bilaterally. Reduced breath sounds on the left. Cardiac: Heart demonstrates a regular rate and rhythm. Normal S1 and S2. High-pitched crescendo systolic. Pulses: The patient has palpable radial pulses bilaterally that are equal in intensity Extremities: There was no evidence of hypoperfusion. There is no cyanosis or clubbing. Mild lower extremity edema bilateral. Skin: He had several excoriations and erythematous lesions on both lower extremities. Results & Data ([facility]) Vital Signs (Past 12 Hours) Vital Signs Temp Pulse Pulse Resp BP Pulse Ox 11/10/21 12:31 36.5 C 79 22 112/70 97 11/10/21 08:02 36.6 C 79 20 134/64 97 11/10/21 08:00 75 11/10/21 04:17 36.6 C 74 19 135/59 L 93 Laboratory Results Abnormal Lab Results 11/09/21 11/09/21 11/09/21 05:33 16:21 20:43 WBC RBC Hgb Hct MCV MCH MCHC RDW Std Deviation RDW Coeff of Mac Plt Count MPV Immature Gran % (Auto) Neut % (Auto) Lymph % (Auto) [place] % (Auto) Eos % (Auto) Baso % (Auto) Neut # (Auto) Lymph # (Auto) [place] # (Auto) Eos # (Auto) Baso # (Auto) Immature Gran # (Auto) Sodium Potassium Chloride Carbon Dioxide Anion Gap BUN Creatinine Est Cr Clr Drug Dosing Est GFR ( Amer) Est GFR (Non-Af Amer) BUN/Creatinine Ratio Glucose POC Glucose 111 H 119 H Estimat Average Glucose 186 Hemoglobin A1c 8.1 H Calcium Phosphorus Magnesium Albumin 11/10/21 11/10/21 11/10/21 06:57 06:57 07:11 WBC 12.54 H RBC 4.43 L Hgb 14.3 Hct 42.9 MCV 96.8 MCH 32.3 MCHC 33.3 RDW Std Deviation 47.8 H RDW Coeff of Mac 13.4 Plt Count 295 MPV 10.6 H Immature Gran % (Auto) 0.2 Neut % (Auto) 76.9 Lymph % (Auto) 12.2 [place] % (Auto) 10.1 Eos % (Auto) 0.4 Baso % (Auto) 0.2 Neut # (Auto) 9.64 H Lymph # (Auto) 1.53 [place] # (Auto) 1.27 H Eos # (Auto) 0.05 Baso # (Auto) 0.02 Immature Gran # (Auto) 0.03 H Sodium 135 L Potassium 3.7 Chloride 96 L Carbon Dioxide 30 Anion Gap 9 BUN 43 H Creatinine 1.64 H Est Cr Clr Drug Dosing 43.6 Est GFR ( Amer) 45.7 Est GFR (Non-Af Amer) 39.5 BUN/Creatinine Ratio 26.2 H Glucose 128 H POC Glucose 139 H Estimat Average Glucose Hemoglobin A1c Calcium 9.2 Phosphorus 3.8 Magnesium 2.4 Albumin 3.8 11/10/21 11:02 WBC RBC Hgb Hct MCV MCH MCHC RDW Std Deviation RDW Coeff of Mac Plt Count MPV Immature Gran % (Auto) Neut % (Auto) Lymph % (Auto) [place] % (Auto) Eos % (Auto) Baso % (Auto) Neut # (Auto) Lymph # (Auto) [place] # (Auto) Eos # (Auto) Baso # (Auto) Immature Gran # (Auto) Sodium Potassium Chloride Carbon Dioxide Anion Gap BUN Creatinine Est Cr Clr Drug Dosing Est GFR ( Amer) Est GFR (Non-Af Amer) BUN/Creatinine Ratio Glucose POC Glucose 192 H Estimat Average Glucose Hemoglobin A1c Calcium Phosphorus Magnesium Albumin PG Care Time/CCT Total # of Minutes Spent Total Time Spent with Patient: Total time spent is greater than 50% in coordination of care (as documented) at patient's floor/unit and/or counseling patient: Coding Level of Care Code 00811 Subseq Hosp Care Lvl 2 Diagnoses Severe aortic stenosis I35.0 Dyspnea on exertion R06.09
--- NOTE | 2021-11-10 14:11 | Electrocardiogram Report ---
Test Reason : Blood Pressure : / mmHG Vent. Rate : 076 BPM Atrial Rate : 076 BPM P-R Int : 168 ms QRS Dur : 094 ms QT Int : 428 ms P-R-T Axes : 062 014 -15 degrees QTc Int : 481 ms Normal sinus rhythm Left ventricular hypertrophy with repolarization abnormality Prolonged QT Abnormal ECG When compared with ECG of 09-NOV-2021 06:20, No significant change was found Confirmed by Young Francois ([id number] on 11/10/2021 2:11:06 PM Referred By: Chris Richards Confirmed By:Kwadwo Francois
[2021-11-10] MEDS: SIMVASTATIN 20 MG TAB PO SCH (20:33)
[2021-11-11 07:45] LABS: Basophils # (auto) 0.02 K/uL (0-0.2); Basophils % (auto) 0.1 %; Eosinophils # (auto) 0.01 K/uL (0-0.5); Eosinophils % (auto) 0.1 %; Hematocrit (blood only) 42.4 % (42-52); Hemoglobin 14.4 g/dL (14.0-18.0); Immature Granulocytes # (auto) 0.04 K/uL (0.00-0.02); Immature Granulocytes % (auto) 0.3 %; Lymphocytes % (auto) 9.3 %; Mean Corpuscular Hemoglobin 32.3 pg (25-34); Mean Corpuscular Volume 95.1 fL (80-100); Monocytes # (auto) 1.85 K/uL (0.11-0.59); Monocytes % (auto) 12.3 %; Neutrophils # (auto) 11.67 K/uL (1.4-6.5); Neutrophils % (auto) 77.9 %; Platelet Count 300 K/uL (130-400); RDW Coefficient of Variation 13.5 % (11.5-14.5); RDW Standard Deviation 46.6 fL (36.4-46.3); Red Blood Count 4.46 M/uL (4.7-6.1); White Blood Count 14.99 K/uL (4.8-10.8)
[2021-11-11 08:11] LABS: BUN Creatinine Ratio 24.9 (10-20); Calcium 9.4 mg/dl (8.5-10.1); Creatinine Clr Calc Pharmacy 38.6 ml/min; Est GFR (African American) 39.5 ml/min; Est GFR (Non-African American) 34.1 ml/min; Magnesium 2.6 mg/dl (1.7-2.4); Potassium 4.1 mmol/L (3.5-5.1)
[2021-11-11] MEDS: METOPROLOL TARTRATE 50 MG TAB PO SCH ×2 (08:11→21:01)
[2021-11-11] MEDS: FUROSEMIDE 40 MG TAB PO SCH (08:12)
[2021-11-11] MEDS: ISOSORBIDE MONO EXTENDED REL 60 MG TABCR PO SCH (08:12)
[2021-11-11] MEDS: guaiFENesin 600 MG TABCR PO SCH ×2 (08:12→21:00)
[2021-11-11] MEDS: PANTOprazole 40 MG TAB PO SCH (08:12)
[2021-11-11] MEDS: ASPIRIN 81 MG ECTAB PO SCH ×2 (08:12→20:59)
[2021-11-11] MEDS: POTASSIUM CHLORIDE CRTAB 20 MEQ TABCR PO SCH ×2 (08:12→20:59)
[2021-11-11] MEDS: MULTIVITAMIN TAB PO SCH (08:12)
[2021-11-11] MEDS: UMECLIDINIUM/VILANTEROL 62.5/25MCG 7 PUFFS/INHALER INH SCH (08:12)
[2021-11-11] MEDS: FERROUS SULFATE 325 MG TAB PO SCH (08:12)
[2021-11-11] MEDS: ENOXAPARIN INJ 40 MG/0.4 ML SYR SQ SCH (08:13)
[2021-11-11] MEDS: INSULIN LISPRO 75%/25% SQ SCH ×2 (08:13→17:25)
[2021-11-11] MEDS: INSULIN ASPART PER UNIT SC SCH ×4 (08:14→21:01)
--- NOTE | 2021-11-11 09:58 | Hospitalist Progress Note ---
Date of Service November 11, 2021 Assessment & Plan (1) CHF exacerbation: Plan: -Likely caused by excessive salt intake via deer bologna in short period of time in setting of severe aortic stenosis -Troponins of low 30s- likely demand ischemia from physiologic stress, EKG does not show concern for infarct -CXR without overt pulmonary edema but demonstrating some opacities of L lung base -Cr 1.64 -> 1.85, around baseline. Continue diuresis with home Lasix but reduce dose to 20 mg daily -Continue K supplementation as diuresis continues -Trend BMP, daily weights, I's/O's -Repeat echocardiogram- EF 55-60% down from 60-65% in April 2021, worsened aortic stenosis -Will cautiously diurese per clinical exam for now given history of CKD + severe aortic stenosis -PT/OT recommending rehab/SNF, will discuss disposition planning with pt and his (2) Severe aortic stenosis: Plan: Suspect this was a strong contributor to current CHF exacerbation Pt will very likely need surgical intervention, anticipate this will be done as outpatient once CHF exacerbation resolves Attempted to discuss need for management with patient on day prior but limited by hearing impairment + degree of cognitive impairment (3) Leukocytosis: Plan: -WBC 12.54 -> 15, ANC 9.64 -> 11.7 today -CXR on admission without overt pulmonary edema but demonstrating some opacities of L lung base, retrocardiac pneumonia not excluded -Repeat CXR 11/11- increased left lower lung opacities concerning for potential pneumonia -CRP, procalcitonin pending -Given uptrending WBC with worsened CXR findings, will treat empirically as pneumonia -Ordered ceftriaxone 1g daily + azithromycin 500 mg IV today + azithromycin 250 mg IV starting tomorrow x4 days -Transition to PO abx pending improvement -Trend CBC (4) CKD (chronic kidney disease): Plan: Creatinine 1.89 upon admission, with range 1.64-1.91 Trend BMP Expect slightly higher increases of creatinine with diuresis due to aortic stenosis' contribution to kidney hypoperfusion Pt would benefit from RADHA/ARB therapy given comorbidities of CKD + DM2 + CHF.. 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 twice daily, routine inhalers daily (6) CAD (coronary artery disease): Plan: Continue aspirin, metoprolol, isosorbide dinitrate, simvastatin (7) Diabetes: Plan: Holding home dulaglutide Humalog 75/25 home regimen altered- 95u qAM + 60u qPM switched to 30u qAM + 20u qPM on admission BSGs stable- low 100s (8) Hypertension: Plan: -Continue isosorbide dinitrate, metoprolol -Holding home triamterene/HCTZ -BPs currently stable (9) History of lobectomy of lung: Plan: See above (10) Lung cancer: Plan: See above (11) High cholesterol: Plan: Continue simvastatin 20 mg at bedtime (12) Gastro-esophageal reflux: Plan: Continue omeprazole/pantoprazole (13) Obstructive sleep apnea syndrome: Plan: CPAP at bedtime as needed Admission and Anticipated Discharge Date Admission Date: November 08, 2021 Supervising Physician Co-Signing Physician Notes Patient seen and examined with PGY-1 Dr. Fuller. Agree with history, exam findings, assessment and plan of care as outlined. In brief, Mr. Bronson is a 80 year old male with hx of CAD, severe aortic stenosis, HTN, CKD admitted with CHF exacerbation. Today, feels well. No dyspnea or chest pain. Has not needed supplemental O2. Vital signs and nursing notes reviewed. Well appearing. Heart with systolic murmur consistent with aortic stenosis. Trace lower extremity edema. Lungs with diminished breath sounds bilaterally. 1. CHF exacerbation in the setting of known CAD. Diuresed with IV Lasix. Switching back to PO Lasix and appears to be euvolemic. Continue metoprolol tartrate 50mg BID, isosorbide mononitrate 60mg daily, ASA 81mg BID. Continue home simvastatindid have a lipid profile done earlier this month that is within a reasonable range. EF 55-60%. 2. Severe aortic stenosis. Severe calcific aortic valve stenosis. Like contributor to his dyspnea. 3. CKD, Stage 3. Seems at baseline and holding up well with diuresis. 4. Pneumonia. Worsening compared to prior x-ray with increasing leukocytosis. Started ceftriaxone and azithromycin today for possible community acquired pneumonia. 5. Mixed restrictive and obstructive lung disease in the setting of adenocarcinoma s/p left upper lobe lobectomy. [place], 6. Diabetes. Humalog 75/25 30U qZM and 20 qPM. Holding dulaglutide. Dispo: Pending clinical improvement. PT recommending inpatient rehab, OT recommending SNF. Subjective No acute events overnight. Sleeping on evaluation but easily roused awake. States he feels well, denies any chest pain or dyspnea. Tolerating meals well, urinating frequently. Denies any bloating or increased swelling. Some cough productive of clear sputum per baseline but no fevers, chills. Review of Systems Review of Systems: Per subjective Physical Exam Physical Exam: General: no acute distress. HEENT--Mucous membranes moist and oropharynx normal. Neck--supple. No JVD. No bruits. Thyroid normal, trachea midline, no adenopathy. Heart--normal S1 and S2. +systolic murmur over LUSB, no rubs or gallops. Lungs- largely clear breath sounds but slightly diminished. No respiratory distress, no accessory muscle use. Abdomen- Soft. Nontender. Nondistended Extremities--no cyanosis or clubbing. Trace bilateral LE edema. Distal pulses 2+ b/l. Results & Data Results & Data ([facility]) Vital Signs (Past 12 Hours) Vital Signs Temp Pulse Pulse Resp BP Pulse Ox 11/11/21 08:17 36.8 C 79 20 150/71 H 93 11/11/21 07:11 72 11/11/21 03:04 37.1 C 76 18 143/59 H 94 11/10/21 22:41 37.1 C 71 18 126/54 L 94 11/10/21 22:17 78 Resident Activity Tracking Resident Involvement: Resident Care Provided Care Provided: Adult Hospital Medicine
--- NOTE | 2021-11-11 13:58 | XRay Report ---
XR chest 2V PA/lateral CLINICAL HISTORY: Increasing leukocytosis COMPARISON STUDY: PET/CT April 30, 2021. Chest radiograph November 08, 2021. FINDINGS: Postoperative findings within the left chest are noted with left lung volume loss. Multiple left-sided rib deformities are present. There is no pneumothorax. No definite pleural effusion is pr esent. There is blunting of the left costophrenic angle. Left basilar airspace opacity has increased since prior exam. Right lung is clear. No evidence for pulmonary edema. IMPRESSION: Increase in left lower lung airspace opacity with volume loss. The findings could reflec t pneumonia or atelectasis. Radiographic follow-up is recommended. ACT 112: Negative or not required by law. Electronically signed by: Garrett Yanes M.D. 11/11/2021 1:56 PM
[2021-11-11] MEDS ORDERED: cefTRIAXone SODIUM 1,000 MG in DEXTROSE 5% 50 ML IV SCH (14:15)
[2021-11-11] MEDS ORDERED: AZITHROMYCIN 500 MG in DEXTROSE 5% 250 ML IV ONE (14:45)
[2021-11-11] MEDS: cefTRIAXone SODIUM 2,000 MG in DEXTROSE 5% 50 ML IV SCH (15:16)
[2021-11-11] MEDS: ACETAMINOPHEN 325 MG TAB PO PRN (20:57)
[2021-11-11] MEDS: DICLOFENAC SOD 1% GEL 100 GM TUBE EXT PRN (20:58)
[2021-11-11] MEDS: SIMVASTATIN 20 MG TAB PO SCH (20:59)
[2021-11-12 08:37] LABS: BUN Creatinine Ratio 27.9 (10-20); Calcium 9.1 mg/dl (8.5-10.1); Creatinine Clr Calc Pharmacy 39.7 ml/min; Est GFR (African American) 41.1 ml/min; Est GFR (Non-African American) 35.5 ml/min; Potassium 3.9 mmol/L (3.5-5.1)
[2021-11-12] MEDS: METOPROLOL TARTRATE 50 MG TAB PO SCH ×2 (08:55→21:52)
[2021-11-12] MEDS: FERROUS SULFATE 325 MG TAB PO SCH (08:55)
[2021-11-12] MEDS: UMECLIDINIUM/VILANTEROL 62.5/25MCG 7 PUFFS/INHALER INH SCH (08:55)
[2021-11-12] MEDS: ASPIRIN 81 MG ECTAB PO SCH ×2 (08:55→21:51)
[2021-11-12] MEDS: PANTOprazole 40 MG TAB PO SCH (08:55)
[2021-11-12] MEDS: FUROSEMIDE 40 MG TAB PO SCH (08:55)
[2021-11-12] MEDS: ISOSORBIDE MONO EXTENDED REL 60 MG TABCR PO SCH (08:56)
[2021-11-12] MEDS: guaiFENesin 600 MG TABCR PO SCH ×2 (08:56→21:52)
[2021-11-12] MEDS: POTASSIUM CHLORIDE CRTAB 20 MEQ TABCR PO SCH ×2 (08:56→21:53)
[2021-11-12] MEDS: ENOXAPARIN INJ 40 MG/0.4 ML SYR SQ SCH (08:56)
[2021-11-12] MEDS: INSULIN LISPRO 75%/25% SQ SCH ×2 (08:57→17:43)
[2021-11-12] MEDS: INSULIN ASPART PER UNIT SC SCH ×4 (08:57→21:52)
[2021-11-12] MEDS: MULTIVITAMIN TAB PO SCH (09:00)
[2021-11-12] MEDS: DICLOFENAC SOD 1% GEL 100 GM TUBE EXT PRN ×2 (09:08→16:09)
[2021-11-12 09:13] LABS: Basophils # (auto) 0.02 K/uL (0-0.2); Basophils % (auto) 0.1 %; Eosinophils # (auto) 0.02 K/uL (0-0.5); Eosinophils % (auto) 0.1 %; Hematocrit (blood only) 43.9 % (42-52); Hemoglobin 14.6 g/dL (14.0-18.0); Immature Granulocytes # (auto) 0.04 K/uL (0.00-0.02); Immature Granulocytes % (auto) 0.3 %; Lymphocytes # (auto) 1.27 K/uL (1.2-3.4); Lymphocytes % (auto) 8.1 %; Mean Corpuscular Hemoglobin 31.9 pg (25-34); Mean Corpuscular Hgb Conc 33.3 g/dL (32-36); Mean Corpuscular Volume 95.9 fL (80-100); Mean Platelet Volume 10.5 fL (7.4-10.4); Monocytes # (auto) 1.62 K/uL (0.11-0.59); Monocytes % (auto) 10.4 %; Neutrophils # (auto) 12.63 K/uL (1.4-6.5); Platelet Count 353 K/uL (130-400); RDW Coefficient of Variation 13.5 % (11.5-14.5); RDW Standard Deviation 47.4 fL (36.4-46.3); Red Blood Count 4.58 M/uL (4.7-6.1)
[2021-11-12] MEDS: AZITHROMYCIN 250 MG in DEXTROSE 5% 250 ML IV SCH (11:46)
--- NOTE | 2021-11-12 12:52 | Hospitalist Progress Note ---
Date of Service November 12, 2021 Assessment & Plan (1) CHF exacerbation: Plan: -Likely caused by excessive salt intake via deer bologna in short period of time in setting of severe aortic stenosis -Troponins of low 30s- likely demand ischemia from physiologic stress, EKG does not show concern for infarct -CXR on admission without overt pulmonary edema but demonstrating some opacities of L lung base, worsening congestion on repeat CXR 11/11 -Cr 1.85 to 1.79, stable over past few days and around baseline. Continue diuresis with home Lasix 40 mg daily -Continue K supplementation as diuresis continues -Trend BMP, daily standing weights, I's/O's -Repeat echocardiogram- EF 55-60% down from 60-65% in April 2021, worsened aortic stenosis -Will cautiously diurese per clinical exam for now given history of CKD + severe aortic stenosis -Repeat CXR on 11/13 for interval change -PT/OT recommending rehab/SNF, will discuss disposition planning with pt and his . Tentatively planned for [facility] at rehab (2) Severe aortic stenosis: Plan: Suspect this was a strong contributor to current CHF exacerbation Pt will very likely need surgical intervention, anticipate this will be done as outpatient once CHF exacerbation resolves Attempted to discuss need for management with patient on day prior but limited by hearing impairment + degree of cognitive impairment (3) Leukocytosis: Plan: -WBC 15 -> 15.6 today -CXR on admission without overt pulmonary edema but demonstrating some opacities of L lung base, retrocardiac pneumonia not excluded -Repeat CXR 11/11- increased left lower lung opacities concerning for potential pneumonia -CRP 25.5, procalcitonin 0.41 -Given uptrending WBC recently with worsened CXR findings, began treating empirically as pneumonia -Continue ceftriaxone 1g daily + azithromycin 250 mg IV x4 days -Aim for 7 days minimum of abx therapy -Transition to PO abx pending improvement -Repeat CXR on 11/13 for interval change -Trend CBC (4) Leg pain, bilateral: Plan: -Unclear history given pt's hearing impairment + mild cognitive impairment -Suspect this may be generalized pain from fluid overload though there may be a sciatic component per history -Will call pt's to inquire about the OTC painkillers he was taking for this. This may be NSAIDs for osteoarthritic pain as well. -As etiology unclear, considering further workup pending history and exam such as CK, ESR/CRP, venous dopplers, XR spine (5) CKD (chronic kidney disease): Plan: Creatinine 1.89 upon admission, with range 1.64-1.91 Trend BMP Expect slightly higher increases of creatinine with diuresis due to aortic stenosis' contribution to kidney hypoperfusion Pt would benefit from RADHA/ARB therapy given comorbidities of CKD + DM2 + CHF.. 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 twice daily, routine inhalers daily (7) CAD (coronary artery disease): Plan: Continue aspirin, metoprolol, isosorbide dinitrate, simvastatin (8) Diabetes: Plan: Holding home dulaglutide Humalog 75/25 home regimen altered- 95u qAM + 60u qPM switched to 30u qAM + 20u qPM on admission BSGs stable- low 100s (9) Hypertension: Plan: -Continue isosorbide dinitrate, metoprolol -Holding home triamterene/HCTZ -BPs currently stable (10) History of lobectomy of lung: Plan: See above (11) Lung cancer: Plan: See above (12) High cholesterol: Plan: Continue simvastatin 20 mg at bedtime (13) Gastro-esophageal reflux: Plan: Continue omeprazole/pantoprazole (14) Obstructive sleep apnea syndrome: Plan: CPAP at bedtime as needed Plan: FENGI: Low salt, heart healthy, DM2, fluid restriction Code status: DNR/DNI DVT ppx: Lovenox daily Isolation: None Dispo: PCU Admission and Anticipated Discharge Date Admission Date: November 08, 2021 Supervising Physician Co-Signing Physician Notes Patient seen and examined with PGY-1 Dr. Fuller. Agree with history, exam findings, assessment and plan of care as outlined. In brief, Mr. Bronson is a 80 year old male with hx of CAD, severe aortic stenosis, HTN, CKD admitted with CHF exacerbation. Today, feels well. No dyspnea or chest pain. Has not needed supplemental O2. Reports that he is concerned that he will never leave the hospital. Reporting left leg pain. He is not sure if this is similar to sciatic pain that has happened to him in the past. No weakness. Reports that he was taking an over the counter medication for his leg but stopped this. He is concerned about whether stopping this medication contributed to what he is experiencing right now. Vital signs and nursing notes reviewed. Well appearing. Heart with systolic murmur consistent with aortic stenosis. Trace lower extremity edema. Lungs with diminished breath sounds bilaterally. 1. CHF exacerbation in the setting of known CAD. Diuresed with IV Lasix. Switching back to PO Lasix and appears to be euvolemic. Continue metoprolol t artrate 50mg BID, isosorbide mononitrate 60mg daily, ASA 81mg BID. Continue home simvastatindid have a lipid profile done earlier this month that is within a reasonable range. EF 55-60%. 2. Severe aortic stenosis. Severe calcific aortic valve stenosis. Like contributor to his dyspnea. 3. CKD, Stage 3. Seems at baseline and holding up well with diuresis. 4. Pneumonia. Worsening compared to prior x-ray with increasing leukocytosis. Started ceftriaxone and azithromycin today for possible community acquired pneumonia. MRSA swab pending. 5. Mixed restrictive and obstructive lung disease in the setting of adenocarcinoma s/p left upper lobe lobectomy. Duonebs, 6. Leg pain. Unclear etiology, but less likely to be secondary to clot or fracture as it seems to be intermittent. Attempting to clarify the OTC medication that patient thinks may have been helping? 7. Diabetes. Humalog 75/25 30U qZM and 20 qPM. Holding dulaglutide. Dispo: Pending clinical improvement. PT recommending inpatient rehab, OT recommending SNF. Subjective No acute events overnight. Sleeping on evaluation but easily roused awake. States he generally feels better overall, denies any chest pain or dyspnea. Tolerating meals well, urinating frequently. However he does note some difficulty sleeping overnight due to bilateral leg pain. History unclear but it seems as though pt was describing this leg pain to be a chronic issue for the past few years. He mentioned having sciatica in the past and also spoke of taking some OTC painkillers (could not recall name) for past few weeks which provided relief. His is apparently aware of what medication this is as she purchased it for him. Review of Systems Review of Systems: Per subjective Physical Exam Physical Exam: General: no acute distress HEENT--Mucous membranes moist and oropharynx normal, +hearing impairment and no home hearing aid in place Neck--supple. No JVD. No bruits. Thyroid normal, trachea midline, no adenopathy. Heart--normal S1 and S2. +systolic murmur over LUSB, no rubs or gallops. Lungs- largely clear breath sounds but slightly diminished. No respiratory distress, no accessory muscle use. Abdomen- Soft. Nontender. Nondistended Extremities--no cyanosis or clubbing. Trace bilateral LE edema up to knees. Distal pulses 2+ b/l. Results & Data Results & Data ([facility]) Vital Signs (Past 12 Hours) Vital Signs Temp Pulse Resp BP Pulse Ox 11/12/21 11:49 96 11/12/21 11:19 36.8 C 63 17 138/59 L 96 11/12/21 07:59 36.7 C 65 19 132/48 L 96 11/12/21 04:00 36.7 C 74 20 127/56 L 92
[2021-11-12] MEDS: cefTRIAXone SODIUM 2,000 MG in DEXTROSE 5% 50 ML IV SCH (15:55)
[2021-11-12] MEDS: ACETAMINOPHEN 325 MG TAB PO PRN ×2 (16:09→21:51)
--- NOTE | 2021-11-12 18:17 | Cardiology Progress Note ---
Date of Service November 12, 2021 Assessment & Plan (1) Severe aortic stenosis: (2) Dyspnea on exertion: Plan: 1. Dyspnea: This is not appear to be a big component of his current symptoms. However, I think we could change his oral diuretic to intravenous while he is in the hospital. He does have an element of peripheral edema. 2. Aortic stenosis: Severe. This morning he reported wanting to be evaluated for an aortic valve replacement. It seems that he has had a discussion in the past about being evaluated at [facility]. This can be accomplished on an outpatient basis. Admission and Anticipated Discharge Date Admission Date: November 08, 2021 Subjective The patient stated that he had difficulty sleeping last night due to leg discomfort. He describes this as neuropathy. He received some Tylenol and some relief. Currently legs are not bothering him. He did not describe much ambulation today. He did not describe dyspnea currently. No chest pain. No dizziness. Review of Systems Review of Systems: Per HPI Physical Exam Physical Exam: The patient is alert and oriented. Mood and affect appeared normal. He answered all questions appropriately. HEENT: Pupils are equal and reactive to light and accommodation. Extraocular movements are intact. The sclerae are anicteric. Neuro: Cranial nerves intact Lungs: Coarse upper respiratory sounds. Occasional crackle bilaterally. Reduced breath sounds on the left. Cardiac: Heart demonstrates a regular rate and rhythm. Normal S1 and S2. High-pitched crescendo systolic. Pulses: The patient has palpable radial pulses bilaterally that are equal in intensity Extremities: There was no evidence of hypoperfusion. There is no cyanosis or clubbing. Mild lower extremity edema bilateral. Skin: He had several excoriations and erythematous lesions on both lower extremities. Results & Data ([facility]) Vital Signs (Past 12 Hours) Vital Signs Temp Pulse Resp BP Pulse Ox 11/12/21 15:31 37.0 C 66 20 122/49 L 94 11/12/21 11:49 96 11/12/21 11:19 36.8 C 63 17 138/59 L 96 11/12/21 07:59 36.7 C 65 19 132/48 L 96 Laboratory Results Abnormal Lab Results 11/11/21 11/12/21 11/12/21 20:29 06:57 07:10 WBC RBC Hgb Hct MCV MCH MCHC RDW Std Deviation RDW Coeff of Mac Plt Count MPV Immature Gran % (Auto) Neut % (Auto) Lymph % (Auto) [place] % (Auto) Eos % (Auto) Baso % (Auto) Neut # (Auto) Lymph # (Auto) [place] # (Auto) Eos # (Auto) Baso # (Auto) Immature Gran # (Auto) Sodium 134 L Potassium 3.9 Chloride 97 L Carbon Dioxide 27 Anion Gap 10 BUN 50 H Creatinine 1.79 H Est Cr Clr Drug Dosing 39.7 Est GFR ( Amer) 41.1 Est GFR (Non-Af Amer) 35.5 BUN/Creatinine Ratio 27.9 H Glucose 134 H POC Glucose 150 H 154 H Calcium 9.1 Nasal Screen MRSA (PCR) 11/12/21 11/12/21 11/12/21 08:11 11:17 16:24 WBC 15.60 H RBC 4.58 L Hgb 14.6 Hct 43.9 MCV 95.9 MCH 31.9 MCHC 33.3 RDW Std Deviation 47.4 H RDW Coeff of Mac 13.5 Plt Count 353 MPV 10.5 H Immature Gran % (Auto) 0.3 Neut % (Auto) 81.0 Lymph % (Auto) 8.1 [place] % (Auto) 10.4 Eos % (Auto) 0.1 Baso % (Auto) 0.1 Neut # (Auto) 12.63 H Lymph # (Auto) 1.27 [place] # (Auto) 1.62 H Eos # (Auto) 0.02 Baso # (Auto) 0.02 Immature Gran # (Auto) 0.04 H Sodium Potassium Chloride Carbon Dioxide Anion Gap BUN Creatinine Est Cr Clr Drug Dosing Est GFR ( Amer) Est GFR (Non-Af Amer) BUN/Creatinine Ratio Glucose POC Glucose 198 H 172 H Calcium Nasal Screen MRSA (PCR) 11/12/21 Unknown WBC RBC Hgb Hct MCV MCH MCHC RDW Std Deviation RDW Coeff of Mac Plt Count MPV Immature Gran % (Auto) Neut % (Auto) Lymph % (Auto) [place] % (Auto) Eos % (Auto) Baso % (Auto) Neut # (Auto) Lymph # (Auto) [place] # (Auto) Eos # (Auto) Baso # (Auto) Immature Gran # (Auto) Sodium Potassium Chloride Carbon Dioxide Anion Gap BUN Creatinine Est Cr Clr Drug Dosing Est GFR ( Amer) Est GFR (Non-Af Amer) BUN/Creatinine Ratio Glucose POC Glucose Calcium Nasal Screen MRSA (PCR) Negative PG Care Time/CCT Total # of Minutes Spent Total Time Spent with Patient: Total time spent is greater than 50% in coordination of care (as documented) at patient's floor/unit and/or counseling patient: Coding Level of Care Code 10781 Subseq Hosp Care Lvl 2 Diagnoses Severe aortic stenosis I35.0 Dyspnea on exertion R06.09
[2021-11-12] MEDS: SIMVASTATIN 20 MG TAB PO SCH (21:53)
[2021-11-13 07:25] LABS: BUN Creatinine Ratio 29.3 (10-20); Creatinine Clr Calc Pharmacy 38.6 ml/min; Est GFR (African American) 39.8 ml/min; Est GFR (Non-African American) 34.3 ml/min; Potassium 4.1 mmol/L (3.5-5.1)
[2021-11-13] MEDS: INSULIN ASPART PER UNIT SC SCH ×4 (08:25→21:24)
[2021-11-13] MEDS: INSULIN LISPRO 75%/25% SQ SCH ×2 (08:34→17:05)
[2021-11-13] MEDS: guaiFENesin 600 MG TABCR PO SCH ×2 (08:36→21:24)
[2021-11-13] MEDS: MULTIVITAMIN TAB PO SCH (08:36)
[2021-11-13] MEDS: ISOSORBIDE MONO EXTENDED REL 60 MG TABCR PO SCH (08:36)
[2021-11-13] MEDS: FERROUS SULFATE 325 MG TAB PO SCH (08:36)
[2021-11-13] MEDS: POTASSIUM CHLORIDE CRTAB 20 MEQ TABCR PO SCH ×2 (08:36→21:26)
[2021-11-13] MEDS: ASPIRIN 81 MG ECTAB PO SCH ×2 (08:36→21:25)
[2021-11-13] MEDS: PANTOprazole 40 MG TAB PO SCH (08:37)
[2021-11-13] MEDS: UMECLIDINIUM/VILANTEROL 62.5/25MCG 7 PUFFS/INHALER INH SCH (08:37)
[2021-11-13] MEDS: FUROSEMIDE 40 MG/4 ML VIAL IV SCH (08:38)
[2021-11-13] MEDS: ENOXAPARIN INJ 40 MG/0.4 ML SYR SQ SCH (08:38)
[2021-11-13] MEDS: AZITHROMYCIN 250 MG in DEXTROSE 5% 250 ML IV SCH (08:47)
[2021-11-13] MEDS: ACETAMINOPHEN 325 MG TAB PO PRN (08:50)
[2021-11-13] MEDS: DICLOFENAC SOD 1% GEL 100 GM TUBE EXT PRN (08:51)
--- NOTE | 2021-11-13 09:43 | Hospitalist Progress Note ---
Date of Service November 13, 2021 Assessment & Plan (1) CHF exacerbation: Plan: -Likely caused by excessive salt intake via deer bologna in short period of time in setting of severe aortic stenosis -Troponins of low 30s- likely demand ischemia from physiologic stress, EKG does not show concern for infarct -Repeat echocardiogram- EF 55-60% down from 60-65% in April 2021, worsened aortic stenosis -CXR on admission without overt pulmonary edema but demonstrating some opacities of L lung base, worsening congestion on repeat CXR 11/11, repeat CXR on 11/13 with further worsening congestion and opacity primarily L > R -Cautious diuresis given history of CKD + severe aortic stenosis. Given lung exam today, more aggressive diuresis also recommended by cardiology- home Lasix 40 mg PO switched to IV today -Cr 1.85 to 1.79 to 1.84 today, stable over past few days and around baseline. Monitor as diuresis continues -Continue K supplementation -Trend BMP, daily standing weights, I's/O's -PT/OT recommending rehab/SNF, in agreement. Tentatively planned for rehab at [facility]. 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 Repeat CXR 11/11- increased left lower lung opacities concerning for potential pneumonia, further worsening opacity on 11/13 CXR -CRP 25.5, procalcitonin 0.41 -Given lack of downtrending WBC recently with worsened CXR findings, began treating empirically as community acquired pneumonia -Continue azithromycin 250 mg IV x3 days -Discontinued ceftriaxone, started cefepime for pseudomonal coverage on 11/13 -Aim for 7 days minimum of abx therapy (at least until 11/17) -Transition to PO abx pending improvement -Trend CBC (4) Leg pain, bilateral: Plan: -Unclear history given pt's hearing impairment + mild cognitive impairment -Suspect this may be diabetic neuropathy pain based on limited history and since pt was taking OTC Nerve Miracle -However, pattern of pain may indicate lumbar radiculopathy- no previous CT of spine in chart but 08/2020 XR spine demonstrating some osteophytes and L4 spondylolisthesis. Incongruent with patient's report of pain which appears to be in L3 distribution -Pain control- switched to scheduled Tylenol today (5) CKD (chronic kidney disease): Plan: Creatinine 1.89 upon admission, with range 1.64-1.91 Trend BMP Expect slightly higher increases of creatinine with diuresis due to aortic stenosis' contribution to kidney hypoperfusion Pt would benefit from RADHA/ARB therapy given comorbidities of CKD + DM2 + CHF.. 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 twice daily, routine inhalers daily (7) CAD (coronary artery disease): Plan: Continue aspirin, metoprolol, isosorbide dinitrate, simvastatin (8) Diabetes: Plan: Holding home dulaglutide Humalog 75/25 home regimen altered- 95u qAM + 60u qPM switched to 30u qAM + 20u qPM on admission BSGs stable- low 100s (9) Hypertension: Plan: -Continue isosorbide dinitrate, metoprolol -Holding home triamterene/HCTZ -BPs currently stable (10) History of lobectomy of lung: Plan: See above (11) Lung cancer: Plan: See above (12) High cholesterol: Plan: Continue simvastatin 20 mg at bedtime (13) Gastro-esophageal reflux: Plan: Continue omeprazole/pantoprazole (14) Obstructive sleep apnea syndrome: Plan: CPAP at bedtime as needed Plan: FENGI: Low salt, heart healthy, DM2, fluid restriction Code status: DNR/DNI DVT ppx: Lovenox daily Isolation: None Dispo: PCU Admission and Anticipated Discharge Date Admission Date: November 08, 2021 Supervising Physician Co-Signing Physician Notes Patient seen and examined with PGY-1 Dr. Fuller. Agree with history, exam findings, assessment and plan of care as outlined. In brief, Mr. Bronson is a 80 year old male with hx of CAD, severe aortic stenosis, HTN, CKD admitted with CHF exacerbation. Continues to be worried about his leg pain. Was taking an OTC supplement called "Nerve Miracle", although he is not sure if this was helpful or not. Denies chest pain. Does not feel that he is getting short of breath. Has only be out of bed to walk to the bathroom. Also spoke with the bedside nurse. Seems weaker today (today, moving in the bed required total assistance vs yesterday she could move him by herself). Notes that his leg, in particular the left leg, seems to be very sensitive to the touch. In particular, the lateral aspect of the thigh is much more sensitive to light touch compared to the other parts of the leg. She also reports that even with minimal movement in the bed, he gets easily winded. Vital signs and nursing notes reviewed. Well appearing. Heart with systolic murmur consistent with aortic stenosis. Trace lower extremity edema. Lungs with diminished breath sounds bilaterally. No rash on the leg. 1.CHF exacerbation in the setting of known CAD. Diuresed with IV Lasix initially. Switching back to PO Lasix but received extra dose of IV lasix today per cardiology to try to get him closer to euvolemic. Continue metoprolol tartrate 50mg BID, isosorbide mononitrate 60mg daily, ASA 81mg BID. Continue home simvastatindid have a lipid profile done earlier this month that is within a reasonable range. EF 55-60%. 2.Severe aortic stenosis. Severe calcific aortic valve stenosis. Interested in having this replaced/repaired. Can have this done as an outpatient. 3.CKD, Stage 3. Seems at baseline and holding up well with diuresis. 4.Pneumonia. Repeat x-ray today with worsening opacity in the left lung. No increase in pulmonary edema of effusion. Consistent with likely worsening of infectious process, coupled with no improvment in his leukocytosis. Will continue azithromycin to keep coverage for atypicals, but broaden from ceftriaxone to cefepime to cover for pseudomonas. 5.Mixed restrictive and obstructive lung disease in the setting of adenocarcinoma s/p left upper lobe lobectomy. [place], 6.Leg pain. Reviewed prior lumbar spine x-ray that shows degenerative changes at several levels. Suspect this may be a L4 radiculitis vs shingles (although no rash at this point). Start oxycodone for pain; check lumbar psine x-ray for any overall bony changes that might suggest worsening narrowing of the disc space. Can consider starting gabapentin or other neuropathic agent as well. 7.Diabetes. Basal-bolus insulin. Dispo: Pending clinical improvement. PT recommending inpatient rehab, OT recommending SNF. Subjective Pt did not sleep very well overnight due to b/l leg pain. The pain is worse on the L leg and he states a provider in the past has told him this may be due to diabetic neuropathy- this provider is either from [facility] or [facility], he could not recall name. Otherwise feels well at present, denies any dyspnea or increased swelling. Believes his legs may be slightly less swollen today as well. Review of Systems Review of Systems: Per subjective Physical Exam Physical Exam: General: no acute distress HEENT--Mucous membranes moist and oropharynx normal, +hearing impairment and no home hearing aid in place Neck--supple. No JVD. No bruits. Thyroid normal, trachea midline, no adenopathy. Heart--normal S1 and S2. +systolic murmur over LUSB, no rubs or gallops. Lungs- increased coarse breath sounds compared to day prior, unchanged diminished breath sounds diffusely worse in L > R lung fontana, no respiratory distress, no accessory muscle use. Abdomen- Soft. Nontender. Nondistended but slightly firm. Extremities--no cyanosis or clubbing. Trace bilateral LE edema. Distal pulses 2+ b/l. Results & Data Results & Data ([facility]) Vital Signs (Past 12 Hours) Vital Signs Temp Pulse Pulse Resp BP Pulse Ox 11/13/21 08:22 36.8 C 68 18 128/53 L 93 11/13/21 03:32 36.7 C 60 18 122/54 L 94 11/13/21 00:18 64 11/12/21 22:12 36.9 C 64 18 120/51 L 95 Resident Activity Tracking Resident Involvement: Resident Care Provided Care Provided: Adult [facility]
[2021-11-13] MEDS: POLYETHYLENE (MIRALAX) 17 GM PACK PO SCH ×2 (10:18→21:25)
[2021-11-13] MEDS: METOPROLOL TARTRATE 50 MG TAB PO SCH ×2 (10:18→21:24)
--- NOTE | 2021-11-13 10:27 | XRay Report ---
XR chest 2V PA/lateral CLINICAL HISTORY: pulmonary edema, pneumonia COMPARISON STUDY: Chest CT March 26, 2021. Chest radiograph November 11, 2021. FINDINGS: Postoperative findings within the left lung are noted. Left lung volume loss is again noted . Left lung airspace opacity has increased with diminished left lung aeration. Pulmonary vascular con gestion is noted within the right lung. A left-sided rib deformities are present. There is no pneumot horax. No definite pleural effusion. IMPRESSION: 1. Increase in extensive left lung airspace opacity with volume loss. This could reflect pneumonia, a telectasis or asymmetric pulmonary edema. Radiographic follow-up is recommended. 2. Pulmonary vascular congestion. ACT 112: Negative or not required by law. Electronically signed by: Garrett Yanes M.D. 11/13/2021 10:24 AM
--- NOTE | 2021-11-13 10:51 | Cardiology Progress Note ---
Date of Service November 13, 2021 Assessment & Plan (1) Severe aortic stenosis: (2) Dyspnea on exertion: Plan: 1. Dyspnea: Surprisingly not short of breath despite significant progression left lung process on x-ray. I would favor an infectious process. He does have a history left lung malignancy as well. I did change his diuretic to intravenous today in order to affect some diuresis. We can watch his volume status closely. Renal function stable. 2. Aortic stenosis: Severe. This morning he reported wanting to be evaluated for an aortic valve replacement. It seems that he has had a discussion in the past about being evaluated at [facility]. This can be accomplished on an outpatient basis. Admission and Anticipated Discharge Date Admission Date: November 08, 2021 Subjective This morning the patient did not have any specific complaints. He has not ambulated yet today. Did not describe leg pain. He has not report any worsening dyspnea or chest pain. He did report a lot of coughing and expectoration of discolored sputum this morning Review of Systems Review of Systems: Per HPI Physical Exam Physical Exam: The patient is alert and oriented. Mood and affect appeared normal. He answered all questions appropriately. HEENT: Pupils are equal and reactive to light and accommodation. Extraocular movements are intact. The sclerae are anicteric. Neuro: Cranial nerves intact Lungs: Coarse upper respiratory sounds. No expiratory wheezing. Significantly reduced breath sounds on the left Cardiac: Heart demonstrates a regular rate and rhythm. Normal S1 and S2. High-pitched crescendo systolic. Pulses: The patient has palpable radial pulses bilaterally that are equal in intensity Extremities: There was no evidence of hypoperfusion. There is no cyanosis or clubbing. Mild lower extremity edema bilateral. Skin: He had several excoriations and erythematous lesions on both lower extremities. Results & Data ([facility]) Vital Signs (Past 12 Hours) Vital Signs Temp Pulse Pulse Resp BP Pulse Ox 11/13/21 08:22 36.8 C 68 18 128/53 L 93 11/13/21 03:32 36.7 C 60 18 122/54 L 94 11/13/21 00:18 64 Laboratory Results Abnormal Lab Results 11/12/21 11/12/21 11/12/21 11:17 16:24 20:32 Sodium Potassium Chloride Carbon Dioxide Anion Gap BUN Creatinine Est Cr Clr Drug Dosing Est GFR ( Amer) Est GFR (Non-Af Amer) BUN/Creatinine Ratio Glucose POC Glucose 198 H 172 H 157 H Calcium Nasal Screen MRSA (PCR) 11/12/21 11/13/21 11/13/21 Unknown 06:35 07:31 Sodium 133 L Potassium 4.1 Chloride 98 Carbon Dioxide 24 Anion Gap 11 BUN 54 H Creatinine 1.84 H Est Cr Clr Drug Dosing 38.6 Est GFR ( Amer) 39.8 Est GFR (Non-Af Amer) 34.3 BUN/Creatinine Ratio 29.3 H Glucose 127 H POC Glucose 145 H Calcium 9.0 Nasal Screen MRSA (PCR) Negative PG Care Time/CCT Total # of Minutes Spent Total Time Spent with Patient: Total time spent is greater than 50% in coordination of care (as documented) at patient's floor/unit and/or counseling patient: Coding Level of Care Code 21588 Subseq Hosp Care Lvl 2 Diagnoses Severe aortic stenosis I35.0 Dyspnea on exertion R06.09
[2021-11-13 14:27] LABS: Basophils # (auto) 0.04 K/uL (0-0.2); Basophils % (auto) 0.3 %; Eosinophils # (auto) 0.05 K/uL (0-0.5); Eosinophils % (auto) 0.3 %; Hematocrit (blood only) 39.2 % (42-52); Hemoglobin 13.2 g/dL (14.0-18.0); Immature Granulocytes % (auto) 0.6 %; Lymphocytes # (auto) 1.38 K/uL (1.2-3.4); Lymphocytes % (auto) 8.6 %; Mean Corpuscular Hemoglobin 31.8 pg (25-34); Mean Corpuscular Hgb Conc 33.7 g/dL (32-36); Mean Corpuscular Volume 94.5 fL (80-100); Mean Platelet Volume 10.1 fL (7.4-10.4); Monocytes # (auto) 1.38 K/uL (0.11-0.59); Monocytes % (auto) 8.6 %; Neutrophils # (auto) 13.03 K/uL (1.4-6.5); Neutrophils % (auto) 81.6 %; Platelet Count 331 K/uL (130-400); RDW Coefficient of Variation 13.4 % (11.5-14.5); RDW Standard Deviation 46.7 fL (36.4-46.3); Red Blood Count 4.15 M/uL (4.7-6.1); White Blood Count 15.98 K/uL (4.8-10.8)
[2021-11-13] MEDS: CEFEPIME 2,000 MG in SYRINGE 0 ML IV SCH (16:01)
--- NOTE | 2021-11-13 16:10 | XRay Report ---
XR lumbar spine 2-3V CLINICAL HISTORY: Low back pain TECHNIQUE: 5 views of the lumbar spine were obtained. Comparison: Comparison is made to lumbar spine radiographs 09/13/2020 FINDINGS: There is no evidence of an acute fracture. Degenerative changes are seen in the lumbar spine. The ali gnment is normal. Vascular calcifications are seen. IMPRESSION: Degenerative changes as above without acute fracture or subluxation. ACT 112: Negative or not required by law. Electronically signed by: Adarsh Sommers M.D. 11/13/2021 4:09 PM
[2021-11-13] MEDS: ACETAMINOPHEN 500 MG TAB PO SCH (17:06)
[2021-11-13] MEDS: oxyCODONE HCL IR 5 MG TAB (IMMEDIATE RELEASE) PO PRN ×2 (21:22→21:26)
[2021-11-13] MEDS: SIMVASTATIN 20 MG TAB PO SCH (21:26)
[2021-11-14] MEDS: ACETAMINOPHEN 500 MG TAB PO SCH ×3 (03:57→17:03)
[2021-11-14] MEDS: CEFEPIME 2,000 MG in SYRINGE 0 ML IV SCH ×2 (03:57→17:01)
--- NOTE | 2021-11-14 06:23 | Hospitalist Progress Note ---
Date of Service November 14, 2021 Assessment & Plan (1) Leukocytosis: Plan: Community acquired pneumonia -WBC 16 -> 11.7 today -CXR on admission without overt pulmonary edema but demonstrating some opacities of L lung base, retrocardiac pneumonia not excluded. Repeat CXR 11/11- increased left lower lung opacities concerning for potential pneumonia, further worsening opacity on 11/13 CXR -CRP 25.5, procalcitonin 0.41 -Given lack of downtrending WBC recently with worsened CXR findings, began treating empirically as community acquired pneumonia on 11/11 with ceftriaxone + azithromycin -Discontinued ceftriaxone, started cefepime for pseudomonal coverage on 11/13 -Continue cefepime 2g q12h and azithromycin 250 mg IV x2 days -Trend CBC (2) CHF exacerbation: Plan: Acute on chronic HFpEF exacerbation -Likely caused by excessive salt intake via deer bologna in short period of time in setting of severe aortic stenosis -Troponins of low 30s- likely demand ischemia from physiologic stress, EKG does not show concern for infarct -Repeat echocardiogram- EF 55-60% down from 60-65% in April 2021, worsened aortic stenosis -CXR on admission without overt pulmonary edema but demonstrating some opacities of L lung base, worsening congestion on repeat CXR 11/11, repeat CXR on 11/13 with further worsening congestion and opacity primarily L > R -Cautious diuresis given history of CKD + severe aortic stenosis. Continue Lasix 40 mg IV daily -Cr 1.84 to 1.73 today, stable over past few days and around baseline. Monitor as diuresis continues -Continue K supplementation -Trend BMP, daily standing weights, I's/O's -PT/OT recommending rehab/SNF, in agreement. Tentatively planned for rehab at [facility]. (3) Hemoptysis: Plan: -Hemoptysis in setting of persistent cough 2/2 pneumonia + HFpEF exacerbation -Suspect the hemoptysis is attributed to inflammatory damage of airway mucosa 2/2 acute illness + cough -Tessalon Perles PRN, continue Mucinex -Trend CBC (4) Epistaxis: Plan: -One incident of minor transient self-resolving epistaxis on 11/13 -Suspect due to irritation of nasal mucosa -Nasal saline sprays PRN, humidified O2 as needed -PT/INR ordered for AM labs (5) Leg pain, bilateral: Plan: -Unclear history given pt's hearing impairment + mild cognitive impairment -Suspect this may be diabetic neuropathy pain based on limited history and since pt was taking OTC Nerve Miracle -However, pattern of pain may indicate lumbar radiculopathy- no previous CT of spine in chart but 08/2020 XR spine demonstrating some osteophytes and L4 spondylolisthesis. Incongruent with patient's report of pain which appears to be in L3 distribution -Repeat XR lumbar spine 11/13 without significant change -Pain control- scheduled Tylenol, oxycodone 5 mg q6h (6) Severe aortic stenosis: Plan: Suspect this was a strong contributor to current CHF exacerbation Pt will very likely need surgical intervention, anticipate this will be done as outpatient once CHF exacerbation resolves Attempted to discuss need for management with patient earlier in stay limited by hearing impairment + degree of cognitive impairment Discussed need for intervention with who is in agreement and 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 twice daily, routine inhalers daily (9) CAD (coronary artery disease): Plan: Continue aspirin, metoprolol, isosorbide dinitrate, simvastatin (10) Diabetes: Plan: Holding home dulaglutide Humalog 75/25 home regimen altered- 95u qAM + 60u qPM switched to 30u qAM + 20u qPM on admission BSGs stable- low 100s (11) Hypertension: Plan: -Continue isosorbide dinitrate, metoprolol -Holding home triamterene/HCTZ -BPs currently stable (12) History of lobectomy of lung: Plan: See above (13) Lung cancer: Plan: See above (14) High cholesterol: Plan: Continue simvastatin 20 mg at bedtime (15) Gastro-esophageal reflux: Plan: Continue omeprazole/pantoprazole (16) Obstructive sleep apnea syndrome: Plan: CPAP at bedtime as needed Plan: FENGI: Low salt, heart healthy, DM2, fluid restriction Code status: DNR/DNI DVT ppx: Lovenox daily Isolation: None Dispo: PCU Admission and Anticipated Discharge Date Admission Date: November 08, 2021 Supervising Physician Co-Signing Physician Notes Attending attestation Pt seen and examined in concert with Dr. Fuller. In agreement with the documented findings as noted in the resident documentation with any exceptions or additions as noted here. Patient reports overall feeling better but still c/o leg pain and overal weakness. On examination, S1/S2 nl RRR no CG, 2-3/6 SEMc/w . CTAB. Abd NT/ND BS+ve PNA - continue azithro and cefepime. monitor. f/u labs HFpEF w/ exacerbation - continue diuresis today with close monitoring of fluid status and consider return to PO in AM. Continue toprol, imdur, ASA, statin. Close monitoring of I/Os CKD III - trend BMP w/ diuresis, remains stable presently Else see resident documentation as noted. Subjective Last evening around dinner time, pt had brief nosebleeding after coughing- lasted for few seconds, resolved by itself without intervention, pt asymptomatic during this time. Also has had his usual persistent coughing and notes last evening and this morning he had some blood tinged sputum with his cough. Otherwise slept well, did not have as much leg pain overnight. On evaluation, pt reports improving leg pain (L > R), denies any dyspnea or chest pain. Notes his leg swelling is better too. Denies fevers, chills. Still some fatigue but this is gradually improving too. Review of Systems Review of Systems: Per subjective Physical Exam Physical Exam: General: no acute distress HEENT--Mucous membranes moist and oropharynx normal, +hearing impairment and no home hearing aid in place Neck--supple. No JVD. No bruits. Thyroid normal, trachea midline, no adenopathy. Heart--normal S1 and S2. +systolic murmur over LUSB, no rubs or gallops. Lungs- coarse breath sounds at bases b/l decreased compared to day prior, unchanged diminished breath sounds diffusely worse in L > R lung fontana, no respiratory distress, no accessory muscle use. Abdomen- Soft. Nontender. Nondistended. No guarding or rebound Extremities--no cyanosis or clubbing. Trace bilateral LE edema. Distal LE pulses 2+ b/l. Results & Data Results & Data ([facility]) Vital Signs (Past 12 Hours) Vital Signs Temp Pulse Pulse Resp BP Pulse Ox 11/14/21 04:02 36.7 C 66 20 127/54 L 92 11/14/21 00:25 36.7 C 65 20 135/58 L 93 11/13/21 23:33 59 L 11/13/21 20:53 37.0 C 66 20 126/48 L 93 Resident Activity Tracking Resident Involvement: Resident Care Provided Care Provided: Adult Hospital Medicine
[2021-11-14 07:45] LABS: Basophils # (auto) 0.03 K/uL (0-0.2); Basophils % (auto) 0.3 %; Eosinophils % (auto) 1.7 %; Hematocrit (blood only) 40.5 % (42-52); Hemoglobin 13.4 g/dL (14.0-18.0); Immature Granulocytes # (auto) 0.08 K/uL (0.00-0.02); Immature Granulocytes % (auto) 0.7 %; Lymphocytes # (auto) 1.14 K/uL (1.2-3.4); Lymphocytes % (auto) 9.7 %; Mean Corpuscular Hemoglobin 31.5 pg (25-34); Mean Corpuscular Hgb Conc 33.1 g/dL (32-36); Mean Corpuscular Volume 95.1 fL (80-100); Monocytes # (auto) 1.03 K/uL (0.11-0.59); Monocytes % (auto) 8.8 %; Neutrophils # (auto) 9.26 K/uL (1.4-6.5); Neutrophils % (auto) 78.8 %; Platelet Count 351 K/uL (130-400); RDW Coefficient of Variation 13.6 % (11.5-14.5); Red Blood Count 4.26 M/uL (4.7-6.1); White Blood Count 11.74 K/uL (4.8-10.8)
[2021-11-14] MEDS: DICLOFENAC SOD 1% GEL 100 GM TUBE EXT PRN (07:51)
[2021-11-14] MEDS: ENOXAPARIN INJ 40 MG/0.4 ML SYR SQ SCH (08:06)
[2021-11-14] MEDS: UMECLIDINIUM/VILANTEROL 62.5/25MCG 7 PUFFS/INHALER INH SCH (08:06)
[2021-11-14] MEDS: INSULIN LISPRO 75%/25% SQ SCH ×2 (08:07→17:02)
[2021-11-14] MEDS: INSULIN ASPART PER UNIT SC SCH ×4 (08:07→20:14)
[2021-11-14] MEDS: FUROSEMIDE 40 MG/4 ML VIAL IV SCH (08:11)
[2021-11-14] MEDS: ASPIRIN 81 MG ECTAB PO SCH ×2 (08:11→20:15)
[2021-11-14] MEDS: FERROUS SULFATE 325 MG TAB PO SCH (08:11)
[2021-11-14] MEDS: PANTOprazole 40 MG TAB PO SCH (08:11)
[2021-11-14] MEDS: guaiFENesin 600 MG TABCR PO SCH ×2 (08:11→20:15)
[2021-11-14] MEDS: MULTIVITAMIN TAB PO SCH (08:11)
[2021-11-14] MEDS: POTASSIUM CHLORIDE CRTAB 20 MEQ TABCR PO SCH ×2 (08:11→20:15)
[2021-11-14] MEDS: ISOSORBIDE MONO EXTENDED REL 60 MG TABCR PO SCH (08:13)
[2021-11-14] MEDS: METOPROLOL TARTRATE 50 MG TAB PO SCH ×2 (08:14→20:15)
[2021-11-14] MEDS: POLYETHYLENE (MIRALAX) 17 GM PACK PO SCH ×2 (08:14→20:15)
[2021-11-14 08:15] LABS: BUN Creatinine Ratio 33.5 (10-20); Calcium 8.9 mg/dl (8.5-10.1); Creatinine Clr Calc Pharmacy 40.7 ml/min; Est GFR (African American) 42.9 ml/min; Potassium 4.1 mmol/L (3.5-5.1)
[2021-11-14] MEDS: AZITHROMYCIN 250 MG in DEXTROSE 5% 250 ML IV SCH (09:17)
[2021-11-14] MEDS ORDERED: BENZONATATE 100 MG CAPSULE PO PRN (09:44)
[2021-11-14] MEDS ORDERED: oxyCODONE HCL IR 5 MG TAB (IMMEDIATE RELEASE) PO SCH (11:01)
[2021-11-14] MEDS: SODIUM CHLORIDE 0.65% NA SOLN 45 ML (OCEAN) SCH (11:26)
--- NOTE | 2021-11-14 15:51 | Cardiology Progress Note ---
Date of Service November 14, 2021 Assessment & Plan (1) Severe aortic stenosis: (2) Dyspnea on exertion: Plan: 1. Dyspnea: Surprisingly not short of breath despite significant progression left lung process on x-ray. Being treated for community-acquired pneumonia. Al so history of malignancy of the left lung. 2. Aortic stenosis: Severe. Depending on his disposition, we can consider referral for TAVR. This would necessitate resolution of his infectious process and an ability to ambulate. He has affected a good diuresis since admission. I think would be reasonable to return him to his usual outpatient diuretic regimen. At this point, Cardiology will sign off. We can see him in the outpatient setting after discharge. For any additional questions during his hospitalization please contact the on-call [facility] [place] Admission and Anticipated Discharge Date Admission Date: November 08, 2021 Subjective This afternoon the patient reports improvement in leg pain which was severe over the course of the evening. He has not ambulated or been out of bed. He denies significant breathing trouble at rest. Some expecturation. Review of Systems Review of Systems: Per HPI Physical Exam 2 Physical Exam: The patient is alert and oriented. Mood and affect appeared normal. He answered all questions appropriately. HEENT: Pupils are equal and reactive to light and accommodation. Extraocular movements are intact. The sclerae are anicteric. Neuro: Cranial nerves intact Lungs: Coarse upper respiratory sounds. No expiratory wheezing. Significantly reduced breath sounds on the left Cardiac: Heart demonstrates a regular rate and rhythm. Normal S1 and S2. High-pitched crescendo systolic. Pulses: The patient has palpable radial pulses bilaterally that are equal in intensity Extremities: There was no evidence of hypoperfusion. There is no cyanosis or clubbing. Mild lower extremity edema bilateral. Skin: He had several excoriations and erythematous lesions on both lower extremities. Results & Data ([facility]) Vital Signs (Past 12 Hours) Vital Signs Temp Pulse Pulse Resp BP Pulse Ox 11/14/21 12:00 36.8 C 88 18 140/53 L 96 11/14/21 08:00 36.7 C 79 19 132/52 L 95 11/14/21 07:19 65 11/14/21 04:02 36.7 C 66 20 127/54 L 92 Laboratory Results Abnormal Lab Results 11/13/21 11/13/21 11/14/21 16:20 20:55 07:24 WBC RBC Hgb Hct MCV MCH MCHC RDW Std Deviation RDW Coeff of Mac Plt Count MPV Immature Gran % (Auto) Neut % (Auto) Lymph % (Auto) [place] % (Auto) Eos % (Auto) Baso % (Auto) Neut # (Auto) Lymph # (Auto) [place] # (Auto) Eos # (Auto) Baso # (Auto) Immature Gran # (Auto) Sodium 135 L Potassium 4.1 Chloride 101 Carbon Dioxide 24 Anion Gap 10 BUN 58 H Creatinine 1.73 H Est Cr Clr Drug Dosing 40.7 Est GFR ( Amer) 42.9 Est GFR (Non-Af Amer) 37.0 BUN/Creatinine Ratio 33.5 H Glucose 119 H POC Glucose 133 H 123 H Calcium 8.9 11/14/21 11/14/21 11/14/21 07:24 07:29 11:22 WBC 11.74 H RBC 4.26 L Hgb 13.4 L Hct 40.5 L MCV 95.1 MCH 31.5 MCHC 33.1 RDW Std Deviation 47.0 H RDW Coeff of Mac 13.6 Plt Count 351 MPV 10.0 Immature Gran % (Auto) 0.7 Neut % (Auto) 78.8 Lymph % (Auto) 9.7 [place] % (Auto) 8.8 Eos % (Auto) 1.7 Baso % (Auto) 0.3 Neut # (Auto) 9.26 H Lymph # (Auto) 1.14 L [place] # (Auto) 1.03 H Eos # (Auto) 0.20 Baso # (Auto) 0.03 Immature Gran # (Auto) 0.08 H Sodium Potassium Chloride Carbon Dioxide Anion Gap BUN Creatinine Est Cr Clr Drug Dosing Est GFR ( Amer) Est GFR (Non-Af Amer) BUN/Creatinine Ratio Glucose POC Glucose 125 H 316 H* Calcium 11/14/21 11:23 WBC RBC Hgb Hct MCV MCH MCHC RDW Std Deviation RDW Coeff of Mac Plt Count MPV Immature Gran % (Auto) Neut % (Auto) Lymph % (Auto) [place] % (Auto) Eos % (Auto) Baso % (Auto) Neut # (Auto) Lymph # (Auto) [place] # (Auto) Eos # (Auto) Baso # (Auto) Immature Gran # (Auto) Sodium Potassium Chloride Carbon Dioxide Anion Gap BUN Creatinine Est Cr Clr Drug Dosing Est GFR ( Amer) Est GFR (Non-Af Amer) BUN/Creatinine Ratio Glucose POC Glucose 279 H Calcium PG Care Time/CCT Total # of Minutes Spent Total Time Spent with Patient: Total time spent is greater than 50% in coordination of care (as documented) at patient's floor/unit and/or counseling patient: Coding Level of Care Code 34453 Subseq Hosp Care Lvl 2 Diagnoses Severe aortic stenosis I35.0 Dyspnea on exertion R06.09
[2021-11-14] MEDS: SIMVASTATIN 20 MG TAB PO SCH (20:15)
[2021-11-15] MEDS: ACETAMINOPHEN 500 MG TAB PO SCH ×3 (01:05→17:48)
[2021-11-15] MEDS: CEFEPIME 2,000 MG in SYRINGE 0 ML IV SCH ×2 (04:20→16:51)
[2021-11-15 06:30] LABS: Basophils # (auto) 0.03 K/uL (0-0.2); Basophils % (auto) 0.3 %; Eosinophils # (auto) 0.37 K/uL (0-0.5); Eosinophils % (auto) 3.2 %; Hematocrit (blood only) 41.3 % (42-52); Hemoglobin 13.6 g/dL (14.0-18.0); Immature Granulocytes # (auto) 0.13 K/uL (0.00-0.02); Immature Granulocytes % (auto) 1.1 %; Lymphocytes # (auto) 1.13 K/uL (1.2-3.4); Lymphocytes % (auto) 9.8 %; Mean Corpuscular Hemoglobin 32.1 pg (25-34); Mean Corpuscular Hgb Conc 32.9 g/dL (32-36); Mean Corpuscular Volume 97.4 fL (80-100); Monocytes # (auto) 1.13 K/uL (0.11-0.59); Monocytes % (auto) 9.8 %; Neutrophils # (auto) 8.79 K/uL (1.4-6.5); Neutrophils % (auto) 75.8 %; Platelet Count 391 K/uL (130-400); RDW Coefficient of Variation 13.4 % (11.5-14.5); Red Blood Count 4.24 M/uL (4.7-6.1); White Blood Count 11.58 K/uL (4.8-10.8)
[2021-11-15 06:57] LABS: BUN Creatinine Ratio 30.4 (10-20); Creatinine Clr Calc Pharmacy 43.7 ml/min; Est GFR (African American) 46.8 ml/min; Est GFR (Non-African American) 40.4 ml/min; Potassium 4.2 mmol/L (3.5-5.1)
[2021-11-15] MEDS: INSULIN LISPRO 75%/25% SQ SCH ×2 (07:54→17:47)
[2021-11-15] MEDS: INSULIN ASPART PER UNIT SC SCH ×4 (07:54→20:30)
[2021-11-15] MEDS: DICLOFENAC SOD 1% GEL 100 GM TUBE EXT PRN (08:02)
[2021-11-15] MEDS: UMECLIDINIUM/VILANTEROL 62.5/25MCG 7 PUFFS/INHALER INH SCH (08:02)
[2021-11-15] MEDS: SODIUM CHLORIDE 0.65% NA SOLN 45 ML (OCEAN) SCH (08:02)
[2021-11-15] MEDS: ENOXAPARIN INJ 40 MG/0.4 ML SYR SQ SCH (08:04)
[2021-11-15] MEDS: guaiFENesin 600 MG TABCR PO SCH ×2 (08:05→20:27)
[2021-11-15] MEDS: POTASSIUM CHLORIDE CRTAB 20 MEQ TABCR PO SCH ×2 (08:05→20:26)
[2021-11-15] MEDS: FUROSEMIDE 40 MG/4 ML VIAL IV SCH (08:05)
[2021-11-15] MEDS: POLYETHYLENE (MIRALAX) 17 GM PACK PO SCH ×2 (08:05→20:32)
[2021-11-15] MEDS: METOPROLOL TARTRATE 50 MG TAB PO SCH ×2 (08:05→20:26)
[2021-11-15] MEDS: MULTIVITAMIN TAB PO SCH (08:06)
[2021-11-15] MEDS: ASPIRIN 81 MG ECTAB PO SCH ×2 (08:06→20:26)
[2021-11-15] MEDS: FERROUS SULFATE 325 MG TAB PO SCH (08:06)
[2021-11-15] MEDS: AZITHROMYCIN 250 MG in DEXTROSE 5% 250 ML IV SCH (08:06)
[2021-11-15] MEDS: ISOSORBIDE MONO EXTENDED REL 60 MG TABCR PO SCH (08:06)
[2021-11-15] MEDS: PANTOprazole 40 MG TAB PO SCH (08:06)
[2021-11-15] MEDS: oxyCODONE HCL IR 5 MG TAB (IMMEDIATE RELEASE) PO PRN (09:36)
[2021-11-15 10:03] LABS: INR 1.1 (0.9-1.1); Prothrombin Time 11.3 Seconds (9.0-12.0)
--- NOTE | 2021-11-15 11:05 | Hospitalist Progress Note ---
Date of Service November 15, 2021 Assessment & Plan (1) Leukocytosis: Plan: Community acquired pneumonia -WBC 16 -> 11.7 ->11.58 today -CXR on admission without overt pulmonary edema but demonstrating some opacities of L lung base, retrocardiac pneumonia not excluded. Repeat CXR 11/11- increased left lower lung opacities concerning for potential pneumonia, further worsening opacity on 11/13 CXR -CRP 25.5, procalcitonin 0.41 -Given lack of downtrending WBC recently with worsened CXR findings, began treating empirically as community acquired pneumonia on 11/11 with ceftriaxone + azithromycin -Discontinued ceftriaxone, started cefepime for pseudomonal coverage on 11/13 -Continue cefepime 2g q12h and azithromycin 250 mg IV x1 day -Trend CBC (2) CHF exacerbation: Plan: Acute on chronic HFpEF exacerbation -Likely caused by excessive salt intake via deer bologna in short period of time in setting of severe aortic stenosis -Troponins of low 30s- likely demand ischemia from physiologic stress, EKG does not show concern for infarct -Repeat echocardiogram- EF 55-60% down from 60-65% in April 2021, worsened aortic stenosis -CXR on admission without overt pulmonary edema but demonstrating some opacities of L lung base, worsening congestion on repeat CXR 11/11, repeat CXR on 11/13 with further worsening congestion and opacity primarily L > R -Cautious diuresis given history of CKD + severe aortic stenosis. Continue Lasix 40 mg IV daily -Cr 1.84 to 1.73 to 1.61 today, stable over past few days and around baseline. Monitor as diuresis continues -Continue K supplementation -Trend BMP, daily standing weights, I's/O's -PT/OT recommending rehab/SNF, in agreement. Tentatively planned for rehab at [facility]. (3) Hemoptysis: Plan: -Hemoptysis in setting of persistent cough 2/2 pneumonia + HFpEF exacerbation -Suspect the hemoptysis is attributed to inflammatory damage of airway mucosa 2/2 acute illness + cough -Tessalon Perles PRN, continue Mucinex -Trend CBC (4) Epistaxis: Plan: -One incident of minor transient self-resolving epistaxis on 11/13 -Suspect due to irritation of nasal mucosa -Nasal saline sprays PRN, humidified O2 as needed -PT/INR this am WNL (5) Leg pain, bilateral: Plan: -Unclear history given pt's hearing impairment + mild cognitive impairment -Suspect this may be diabetic neuropathy pain based on limited history and since pt was taking OTC Nerve Miracle -However, pattern of pain may indicate lumbar radiculopathy- no previous CT of spine in chart but 08/2020 XR spine demonstrating some osteophytes and L4 spondylolisthesis. 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 twice daily, routine inhalers daily (9) CAD (coronary artery disease): Plan: Continue aspirin, metoprolol, isosorbide dinitrate, simvastatin (10) Diabetes: Plan: Holding home dulaglutide Humalog 75/25 home regimen altered- 95u qAM + 60u qPM switched to 30u qAM + 20u qPM on admission BSGs stable- low 100s (11) Hypertension: Plan: -Continue isosorbide dinitrate, metoprolol -Holding home triamterene/HCTZ -BPs currently stable (12) History of lobectomy of lung: Plan: See above (13) Lung cancer: Plan: See above (14) High cholesterol: Plan: Continue simvastatin 20 mg at bedtime (15) Gastro-esophageal reflux: Plan: Continue omeprazole/pantoprazole (16) Obstructive sleep apnea syndrome: Plan: CPAP at bedtime as needed Plan: FENGI: Low salt, heart healthy, DM2, fluid restriction Code status: DNR/DNI DVT ppx: Lovenox daily Isolation: None Dispo: PCU Admission and Anticipated Discharge Date Admission Date: November 08, 2021 Supervising Physician Co-Signing Physician Notes Attending attestation Pt seen and examined in concert with Dr. Naik. In agreement with the documented findings as noted in the resident documentation with any exceptions or additions as noted here. Patient reports continued bilateral lower extremity pain which is improved with pain medication use as ordered, but taking less than optimally. Otherwise, ongoing improvement in weakness/fatigue. On examination, S1/S2 nl RRR no CG, 2-3/6 SEMc/w . CTAB. Abd NT/ND BS+ve PNA - continue azithro and cefepime to complete course on 4.25. monitor. f/u labs HFpEF w/ exacerbation - transition to PO furosemide. Continue toprol, imdur, ASA, statin. Close monitoring of I/Os CKD III - trend BMP avoid nephrotoxic interventions while able Else see resident documentation as noted. Subjective Patient seen at bedside this morning. No overnight events reported. Patient is able to hear this morning as he now has hearing aids and is able to converse appropriately. Patient's biggest complaint today is that his leg pain is now at a "10 out of 10". He has not taken any opioid medication since yesterday at 11 AM. Otherwise patient seems to be breathing well and not having any difficulty. He is currently on 95% on room air and does not describe any shortness of breath. He reports that symptomatically he overall feels better and thinks that the antibiotics are working. Otherwise patient has no new complaints at this time. Review of Systems Review of Systems: All systems reviewed & are unremarkable except as noted in HPI & below Physical Exam Constitutional: WD/WN, vitals as above Eyes: + anicteric sclerae ENMT: Ears: + hearing impairment (now has hearing aids) Neck: trachea midline, no thyromegaly Respiratory: normal respiratory effort, lungs clear to auscultation Cardiovascular: Rate/Rhythm: regular rate Extremities: + edema (trace) Gastrointestinal (Abdomen): normal bowel sounds, soft, nontender, no hepatosplenomegaly Musculoskeletal: Head/Neck/Chest: normocephalic and head atraumatic Skin: no rashes, warm and dry Neurologic: moves all extremities Psychiatric: A+Ox3, euthymic affect Results & Data Results & Data ([facility]) Vital Signs (Past 12 Hours) Vital Signs Temp Pulse Pulse Resp BP Pulse Ox 11/15/21 07:35 36.7 C 66 18 153/55 H 97 11/15/21 07:21 60 11/15/21 04:01 36.7 C 60 20 144/68 H 98 Resident Activity Tracking Resident Involvement: Resident Care Provided Care Provided: Adult Hospital Medicine
[2021-11-15] MEDS: SIMVASTATIN 20 MG TAB PO SCH (20:26)
[2021-11-16] MEDS: ACETAMINOPHEN 500 MG TAB PO SCH ×3 (01:30→17:27)
[2021-11-16] MEDS: CEFEPIME 2,000 MG in SYRINGE 0 ML IV SCH ×2 (04:10→15:45)
[2021-11-16 06:40] LABS: Basophils # (auto) 0.04 K/uL (0-0.2); Basophils % (auto) 0.3 %; Eosinophils # (auto) 0.49 K/uL (0-0.5); Eosinophils % (auto) 3.8 %; Hematocrit (blood only) 41.9 % (42-52); Hemoglobin 13.6 g/dL (14.0-18.0); Immature Granulocytes # (auto) 0.18 K/uL (0.00-0.02); Immature Granulocytes % (auto) 1.4 %; Lymphocytes # (auto) 1.43 K/uL (1.2-3.4); Lymphocytes % (auto) 11.2 %; Mean Corpuscular Hemoglobin 31.7 pg (25-34); Mean Corpuscular Hgb Conc 32.5 g/dL (32-36); Mean Corpuscular Volume 97.7 fL (80-100); Mean Platelet Volume 10.1 fL (7.4-10.4); Monocytes # (auto) 1.27 K/uL (0.11-0.59); Monocytes % (auto) 9.9 %; Neutrophils % (auto) 73.4 %; Platelet Count 415 K/uL (130-400); RDW Coefficient of Variation 13.5 % (11.5-14.5); Red Blood Count 4.29 M/uL (4.7-6.1); White Blood Count 12.81 K/uL (4.8-10.8)
[2021-11-16 06:55] LABS: Creatinine Clr Calc Pharmacy 43.9 ml/min; Est GFR (African American) 47.1 ml/min; Est GFR (Non-African American) 40.7 ml/min; Potassium 4.7 mmol/L (3.5-5.1)
--- NOTE | 2021-11-16 07:01 | Hospitalist Progress Note ---
Date of Service November 16, 2021 Assessment & Plan (1) Leukocytosis: Plan: Community acquired pneumonia -WBC 16 ->12.8 today -CXR on admission without overt pulmonary edema but demonstrating some opacities of L lung base, retrocardiac pneumonia not excluded. Repeat CXR 11/11- increased left lower lung opacities concerning for potential pneumonia, further worsening opacity on 11/13 CXR -CRP 25.5, procalcitonin 0.41 -Given lack of downtrending WBC recently with worsened CXR findings, began treating empirically as community acquired pneumonia on 11/11 with ceftriaxone + azithromycin -Discontinued ceftriaxone, started cefepime for pseudomonal coverage on 11/13 -Continue cefepime 2g q12h and azithromycin 250 mg IV for today. This would complete 5 days of antibiotic coverage for community-acquired pneumonia. -Trend CBC (2) CHF exacerbation: Plan: Acute on chronic HFpEF exacerbation, resolved -Likely caused by excessive salt intake via deer bologna in short period of time in setting of severe aortic stenosis -Troponins of low 30s- likely demand ischemia from physiologic stress, EKG does not show concern for infarct -Repeat echocardiogram- EF 55-60% down from 60-65% in April 2021, worsened aortic stenosis -CXR on admission without overt pulmonary edema but demonstrating some opacities of L lung base, worsening congestion on repeat CXR 11/11, repeat CXR on 11/13 with further worsening congestion and opacity primarily L > R -Cautious diuresis given history of CKD + severe aortic stenosis. Continue Lasix 40 mg PO daily -Cr 1.84 to 1.73 to 1.61 today, stable over past few days and around baseline. Monitor as diuresis continues -Continue K supplementation -Trend BMP, daily standing weights, I's/O's -PT/OT recommending rehab/SNF, in agreement. Tentatively planned for rehab at [facility]. (3) Hemoptysis: Plan: -Hemoptysis in setting of persistent cough 2/2 pneumonia + HFpEF exacerbation -Suspect the hemoptysis is attributed to inflammatory damage of airway mucosa 2/2 acute illness + cough -Tessalon Perles PRN, continue Mucinex -Trend CBC (4) Epistaxis: Plan: -One incident of minor transient self-resolving epistaxis on 11/13 -Suspect due to irritation of nasal mucosa -Nasal saline sprays PRN, humidified O2 as needed -PT/INR this am WNL (5) Leg pain, bilateral: Plan: -Unclear history given pt's hearing impairment + mild cognitive impairment -Suspect this may be diabetic neuropathy pain based on limited history and since pt was taking OTC Nerve Miracle -However, pattern of pain may indicate lumbar radiculopathy- no previous CT of spine in chart but 08/2020 XR spine demonstrating some osteophytes and L4 spondylolisthesis. Incongruent with patient's report of pain which appears to be in L3 distribution -The patient is doing well and his kidney function has continued to be stable, started patient on 100 mg of gabapentin twice daily on 11/16. -Repeat XR lumbar spine 11/13 without significant change -Pain control- scheduled Tylenol, oxycodone 5 mg q6h (6) Severe aortic stenosis: Plan: -Suspect this was a strong contributor to current CHF exacerbation -Pt will very likely need surgical intervention, anticipate this will be done as outpatient once CHF exacerbation resolves -Discussed need for intervention with who is in agreement and pt will follow up with adult probation officer next month (7) CKD (chronic kidney disease): Plan: CKD Stage 3 Creatinine 1.89 upon admission, with range 1.64-1.91 Trend BMP Expect slightly higher increases of creatinine with diuresis due to aortic stenosis' contribution to kidney hypoperfusion Pt would benefit from RADHA/ARB therapy given comorbidities of CKD + DM2 + CHF.. 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 twice daily, routine inhalers daily (9) CAD (coronary artery disease): Plan: Continue aspirin, metoprolol, isosorbide dinitrate, simvastatin (10) Diabetes: Plan: Holding home dulaglutide Humalog 75/25 home regimen altered- 95u qAM + 60u qPM switched to 30u qAM + 20u qPM on admission BSGs stable- low 100s (11) Hypertension: Plan: -Continue isosorbide dinitrate, metoprolol -Holding home triamterene/HCTZ -BPs currently stable (12) History of lobectomy of lung: Plan: See above (13) Lung cancer: Plan: See above (14) High cholesterol: Plan: Continue simvastatin 20 mg at bedtime (15) Gastro-esophageal reflux: Plan: Continue omeprazole/pantoprazole (16) Obstructive sleep apnea syndrome: Plan: CPAP at bedtime as needed Plan: FENGI: Low salt, heart healthy, DM2, fluid restriction Code status: DNR/DNI DVT ppx: Lovenox daily Isolation: None Dispo: PCU Admission and Anticipated Discharge Date Admission Date: November 08, 2021 Supervising Physician Co-Signing Physician Notes Attending attestation Pt seen and examined in concert with Dr. Naik. In agreement with the documented findings as noted in the resident documentation with any exceptions or additions as noted here. Diminished lower extremity pain today but with increased concern for same. Patient is interested in gabapentin after discussion and with improving renal function and fluid balance is reasonable to start same today. On examination, S1/S2 nl RRR no CG, 2-3/6 SEMc/w . CTAB. Abd NT/ND BS+ve PNA - completed course of azithro and cefepime after today HFpEF w/ exacerbation - tolerating PO furosemide. Continue toprol, imdur, ASA, statin. Close monitoring of I/Os CKD III - trend BMP avoid nephrotoxic interventions while able Chronic lower extremity neuropathic pain - start gabapentin 100mg BID and monitor for sedation, adverse effect Patient's primary care is retiring and has no follow up at present - will be following with Dr. Naik following discharge. Else see resident documentation as noted. I spent 40 minutes of face to face time with this patient with the additional beenfit of reviewing both his current lack of stable outpatient follow up and the importance of an established primary care to manage his complicated medical conditions, as well as working through his chronic lower extremity pain and options regarding medication management. Subjective Patient seen at bedside this morning. No overnight events reported. Patient seems to be continually doing well on room air. Reports improved lower extremity pain compared to yesterday. Patient is aware that he does have pain medication available to him to take for his pain if necessary. Otherwise doing well and has no other complaints at this time. Review of Systems Review of Systems: All systems reviewed & are unremarkable except as noted in HPI & below Physical Exam Constitutional: WD/WN, vitals as above Eyes: + anicteric sclerae ENMT: Ears: + hearing impairment (now has hearing aids) Neck: trachea midline, no thyromegaly Respiratory: normal respiratory effort, lungs clear to auscultation Cardiovascular: Rate/Rhythm: regular rate Extremities: + edema (trace) Gastrointestinal (Abdomen): normal bowel sounds, soft, nontender, no hepatosplenomegaly Musculoskeletal: Head/Neck/Chest: normocephalic and head atraumatic Skin: no rashes, warm and dry Neurologic: moves all extremities Psychiatric: A+Ox3, euthymic affect Results & Data Results & Data ([facility]) Vital Signs (Past 12 Hours) Vital Signs Temp Pulse Pulse Resp BP Pulse Ox 11/16/21 03:22 36.8 C 71 24 163/69 H 99 11/15/21 23:44 36.7 C 58 L 16 119/64 96 11/15/21 23:35 59 L Resident Activity Tracking Resident Involvement: Resident Care Provided Care Provided: Adult Hospital Medicine
[2021-11-16] MEDS: INSULIN ASPART PER UNIT SC SCH ×4 (07:56→20:47)
[2021-11-16] MEDS: POLYETHYLENE (MIRALAX) 17 GM PACK PO SCH ×2 (08:52→20:56)
[2021-11-16] MEDS: SODIUM CHLORIDE 0.65% NA SOLN 45 ML (OCEAN) SCH (08:53)
[2021-11-16] MEDS: oxyCODONE HCL IR 5 MG TAB (IMMEDIATE RELEASE) PO PRN (08:53)
[2021-11-16] MEDS: UMECLIDINIUM/VILANTEROL 62.5/25MCG 7 PUFFS/INHALER INH SCH (08:53)
[2021-11-16] MEDS: POTASSIUM CHLORIDE CRTAB 20 MEQ TABCR PO SCH ×2 (08:54→21:02)
[2021-11-16] MEDS: PANTOprazole 40 MG TAB PO SCH (08:54)
[2021-11-16] MEDS: METOPROLOL TARTRATE 50 MG TAB PO SCH ×2 (08:54→20:55)
[2021-11-16] MEDS: ISOSORBIDE MONO EXTENDED REL 60 MG TABCR PO SCH (08:54)
[2021-11-16] MEDS: MULTIVITAMIN TAB PO SCH (08:54)
[2021-11-16] MEDS: guaiFENesin 600 MG TABCR PO SCH ×2 (08:54→20:55)
[2021-11-16] MEDS: FUROSEMIDE 40 MG TAB PO SCH (08:55)
[2021-11-16] MEDS: ENOXAPARIN INJ 40 MG/0.4 ML SYR SQ SCH (08:55)
[2021-11-16] MEDS: INSULIN LISPRO 75%/25% SQ SCH ×2 (08:55→17:24)
[2021-11-16] MEDS: ASPIRIN 81 MG ECTAB PO SCH ×2 (08:55→20:55)
[2021-11-16] MEDS: FERROUS SULFATE 325 MG TAB PO SCH (08:55)
[2021-11-16] MEDS: AZITHROMYCIN 250 MG in DEXTROSE 5% 250 ML IV SCH (09:07)
[2021-11-16] MEDS: GABAPENTIN 100 MG CAP PO SCH (20:55)
[2021-11-16] MEDS: SIMVASTATIN 20 MG TAB PO SCH (20:55)
[2021-11-17] MEDS: ACETAMINOPHEN 500 MG TAB PO SCH ×3 (02:04→17:23)
[2021-11-17] MEDS: CEFEPIME 2,000 MG in SYRINGE 0 ML IV SCH (04:49)
[2021-11-17 06:09] LABS: Basophils # (auto) 0.04 K/uL (0-0.2); Basophils % (auto) 0.4 %; Eosinophils % (auto) 4.5 %; Hematocrit (blood only) 39.8 % (42-52); Hemoglobin 13.2 g/dL (14.0-18.0); Immature Granulocytes # (auto) 0.18 K/uL (0.00-0.02); Immature Granulocytes % (auto) 1.6 %; Lymphocytes # (auto) 1.38 K/uL (1.2-3.4); Lymphocytes % (auto) 12.4 %; Mean Corpuscular Hemoglobin 32.4 pg (25-34); Mean Corpuscular Hgb Conc 33.2 g/dL (32-36); Mean Corpuscular Volume 97.8 fL (80-100); Mean Platelet Volume 9.8 fL (7.4-10.4); Monocytes # (auto) 1.07 K/uL (0.11-0.59); Monocytes % (auto) 9.6 %; Neutrophils # (auto) 7.99 K/uL (1.4-6.5); Neutrophils % (auto) 71.5 %; Platelet Count 400 K/uL (130-400); RDW Coefficient of Variation 13.5 % (11.5-14.5); RDW Standard Deviation 48.1 fL (36.4-46.3); Red Blood Count 4.07 M/uL (4.7-6.1); White Blood Count 11.16 K/uL (4.8-10.8)
[2021-11-17 06:19] LABS: BUN Creatinine Ratio 29.4 (10-20); Calcium 8.6 mg/dl (8.5-10.1); Creatinine Clr Calc Pharmacy 49.1 ml/min; Est GFR (Non-African American) 46.6 ml/min; Potassium 4.8 mmol/L (3.5-5.1)
[2021-11-17] MEDS: INSULIN ASPART PER UNIT SC SCH ×4 (08:36→20:44)
[2021-11-17] MEDS: INSULIN LISPRO 75%/25% SQ SCH ×2 (08:39→17:23)
[2021-11-17] MEDS: AZITHROMYCIN 250 MG in DEXTROSE 5% 250 ML IV SCH (08:44)
[2021-11-17] MEDS: UMECLIDINIUM/VILANTEROL 62.5/25MCG 7 PUFFS/INHALER INH SCH (08:44)
[2021-11-17] MEDS: GABAPENTIN 100 MG CAP PO SCH ×2 (08:44→20:32)
[2021-11-17] MEDS: METOPROLOL TARTRATE 50 MG TAB PO SCH ×2 (08:44→20:32)
[2021-11-17] MEDS: guaiFENesin 600 MG TABCR PO SCH ×2 (08:44→20:32)
[2021-11-17] MEDS: SODIUM CHLORIDE 0.65% NA SOLN 45 ML (OCEAN) SCH (08:45)
--- NOTE | 2021-11-17 09:05 | Hospitalist Progress Note ---
Date of Service November 17, 2021 Assessment & Plan (1) Leukocytosis: Plan: Community acquired pneumonia, resolved -WBC decreased to 11 -CXR (11/08): opacities of L lung base, retrocardiac pneumonia not excluded -Repeat CXR (11/11): increased left lower lung opacities concerning for potential pneumonia, further worsening opacity on 11/13 CXR -CRP 25.5, procalcitonin 0.41 -completed 5 days abx with cefepime and azithromycin, discontinued today -trend cbc (2) CHF exacerbation: Plan: Acute on chronic HFpEF exacerbation, resolved -Likely caused by excessive salt intake via deer bologna in short period of time in setting of severe aortic stenosis -Troponins of low 30s- likely demand ischemia from physiologic stress, EKG does not show concern for infarct -Repeat echocardiogram: EF 55-60% down from 60-65% in April 2021, worsened aortic stenosis -CXR on admission without overt pulmonary edema but demonstrating some opacities of L lung base, worsening congestion on repeat CXR 11/11, repeat CXR on 11/13 with further worsening congestion and opacity primarily L > R -Cautious diuresis given history of CKD + severe aortic stenosis. Continue Lasix 40 mg PO daily -Cr 1.43, stable near baseline. Monitor as diuresis continues. -Continue K supplementation -Trend BMP, daily standing weights, strict I/O's -PT/OT recommending rehab/SNF, in agreement. Tentatively planned for rehab at [facility]. (3) Hemoptysis: Plan: -Hemoptysis in setting of persistent cough 2/2 pneumonia + HFpEF exacerbation -Suspect the hemoptysis is attributed to inflammatory damage of airway mucosa 2/2 acute illness + cough -Tessalon Perles PRN, continue Mucinex -Trend CBC (4) Epistaxis: Plan: -One incident of minor transient self-resolving epistaxis on 11/13 -Suspect due to irritation of nasal mucosa -Nasal saline sprays PRN, humidified O2 as needed -PT/INR normal (11/15) (5) Leg pain, bilateral: Plan: -Unclear history given pt's hearing impairment + mild cognitive impairment -Suspect this may be diabetic neuropathy pain based on limited history and since pt was taking OTC Nerve Miracle -However, pattern of pain may indicate lumbar radiculopathy- no previous CT of spine in chart but 08/2020 XR spine demonstrating some osteophytes and L4 spondylolisthesis. Incongruent with patient's report of pain which appears to be in L3 distribution -kidney function has continued to be stable, started 100 mg of gabapentin BID on 11/16, continue -Repeat XR lumbar spine 11/13 without significant change -Pain control- scheduled Tylenol, oxycodone 5 mg q6h (6) Severe aortic stenosis: Plan: -Suspect this was a strong contributor to current CHF exacerbation -Pt will very likely need surgical intervention, anticipate this will be done as outpatient once CHF exacerbation resolves -Discussed need for intervention with who is in agreement and pt will follow up with environmental lawyer next month (7) CKD (chronic kidney disease): Plan: CKD Stage 3 -Creatinine 1.89 upon admission, with range 1.64-1.91 -Cr 1.43 today -Trend BMP -Expect slightly higher increases of creatinine with diuresis due to aortic stenosis' contribution to kidney hypoperfusion -Pt would benefit from RADHA/ARB therapy given comorbidities of CKD + DM2 + CHF. 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, status post left upper lobe lobectomy in 2018- -Continue duonebs q8h prn, guaifenesin ER 1200 mg po bid, routine inhalers daily (9) CAD (coronary artery disease): Plan: Continue aspirin, metoprolol, isosorbide dinitrate, simvastatin (10) Diabetes: Plan: Holding home dulaglutide Humalog 75/25 home regimen altered- 95u qAM + 60u qPM switched to 30u qAM + 20u qPM on admission; mildly hypoglycemic overnight, will decrease evening dose to 15u (11) Hypertension: Plan: -Continue isosorbide dinitrate, metoprolol -Holding home triamterene/HCTZ -BPs currently stable (12) History of lobectomy of lung: Plan: See above (13) Lung cancer: Plan: See above (14) High cholesterol: Plan: Continue simvastatin 20 mg at bedtime (15) Gastro-esophageal reflux: Plan: Continue omeprazole/pantoprazole (16) Obstructive sleep apnea syndrome: Plan: CPAP at bedtime as needed Plan: JONII: Low salt, heart healthy, DM2, fluid restriction Code status: DNR/DNI DVT ppx: Lovenox daily Isolation: None Dispo: PCU Admission and Anticipated Discharge Date Admission Date: November 08, 2021 Supervising Physician Co-Signing Physician Notes I personally examined the patient and verified all mccrary points of history and exam, discussed case, and agree with decision making with Dr Miguel feeling OK overall just very weak waiting for rehab. working w PT when i see him vitals noted nad heent nc at mmm breathing unlabored lungs overall clear walking weak with walker and PT assistance PNA - completed course of azithro and cefepime appears ipmroving HFpEF w/ exacerbation - continue home meds CKD III - trend BMP avoid nephrotoxic interventions while able Chronic lower extremity neuropathic pain - started gabapentin 100mg BID and monitor for sedation, adverse effect for rehab once bed available Subjective Patient seen at bedside this morning. No overnight events reported. Continues to do well on room air. Review of Systems Review of Systems: All systems reviewed & are unremarkable except as noted in HPI & below Physical Exam Constitutional: WD/WN, vitals as above ENMT: Ears: + hearing impairment (has hearing aids) Neck: trachea midline, no thyromegaly Respiratory: normal respiratory effort and able to speak in complete sentences mild coarse breath sounds left lower lung Cardiovascular: Rate/Rhythm: regular rate and regular rhythm Extremities: + edema (trace lower extremities) Gastrointestinal (Abdomen): normal bowel sounds, soft, nontender, no hepatosplenomegaly Musculoskeletal: Head/Neck/Chest: normocephalic and head atraumatic Skin: warm, dry Neurologic: moves all extremities Psychiatric: A+Ox3, euthymic affect Results & Data Results & Data ([facility]) Vital Signs (Past 12 Hours) Vital Signs Temp Pulse Resp BP Pulse Ox 11/17/21 07:14 36.6 C 69 16 142/52 H 96 11/16/21 22:30 36.6 C 57 L 18 142/72 H 97 Resident Activity Tracking Resident Involvement: Resident Care Provided Care Provided: Adult Hospital Medicine
[2021-11-17] MEDS: POLYETHYLENE (MIRALAX) 17 GM PACK PO SCH ×2 (10:50→20:35)
[2021-11-17] MEDS: FERROUS SULFATE 325 MG TAB PO SCH (10:50)
[2021-11-17] MEDS: ASPIRIN 81 MG ECTAB PO SCH ×2 (10:50→20:32)
[2021-11-17] MEDS: ENOXAPARIN INJ 40 MG/0.4 ML SYR SQ SCH (10:50)
[2021-11-17] MEDS: FUROSEMIDE 40 MG TAB PO SCH (10:50)
[2021-11-17] MEDS: POTASSIUM CHLORIDE CRTAB 20 MEQ TABCR PO SCH ×2 (10:51→20:35)
[2021-11-17] MEDS: MULTIVITAMIN TAB PO SCH (10:51)
[2021-11-17] MEDS: PANTOprazole 40 MG TAB PO SCH (11:42)
[2021-11-17] MEDS: ISOSORBIDE MONO EXTENDED REL 60 MG TABCR PO SCH (11:43)
[2021-11-17] MEDS: oxyCODONE HCL IR 5 MG TAB (IMMEDIATE RELEASE) PO PRN (19:21)
--- NOTE | 2021-11-17 19:32 | Billing Data ---
Date of Service November 17, 2021 Coding Level of Care Code 36331 Subseq Hosp Care Lvl 2
[2021-11-17] MEDS: SIMVASTATIN 20 MG TAB PO SCH (20:32)
[2021-11-18] MEDS: ACETAMINOPHEN 500 MG TAB PO SCH ×3 (03:06→17:38)
[2021-11-18 07:00] LABS: Basophils # (auto) 0.04 K/uL (0-0.2); Basophils % (auto) 0.4 %; Eosinophils # (auto) 0.45 K/uL (0-0.5); Eosinophils % (auto) 4.2 %; Hematocrit (blood only) 37.8 % (42-52); Hemoglobin 12.2 g/dL (14.0-18.0); Immature Granulocytes # (auto) 0.21 K/uL (0.00-0.02); Lymphocytes % (auto) 14.9 %; Mean Corpuscular Hemoglobin 31.6 pg (25-34); Mean Corpuscular Hgb Conc 32.3 g/dL (32-36); Mean Corpuscular Volume 97.9 fL (80-100); Mean Platelet Volume 9.8 fL (7.4-10.4); Monocytes # (auto) 1.22 K/uL (0.11-0.59); Monocytes % (auto) 11.3 %; Neutrophils # (auto) 7.24 K/uL (1.4-6.5); Neutrophils % (auto) 67.2 %; Platelet Count 395 K/uL (130-400); RDW Coefficient of Variation 13.5 % (11.5-14.5); RDW Standard Deviation 48.4 fL (36.4-46.3); Red Blood Count 3.86 M/uL (4.7-6.1); White Blood Count 10.76 K/uL (4.8-10.8)
[2021-11-18 07:16] LABS: BUN Creatinine Ratio 25.4 (10-20); Calcium 8.5 mg/dl (8.5-10.1); Creatinine Clr Calc Pharmacy 50.7 ml/min; Est GFR (African American) 56.4 ml/min; Est GFR (Non-African American) 48.6 ml/min; Potassium 4.3 mmol/L (3.5-5.1)
--- NOTE | 2021-11-18 08:26 | Hospitalist Progress Note ---
Date of Service November 18, 2021 Assessment & Plan (1) Leukocytosis: Plan: Community acquired pneumonia, resolved -WBC wnl -CXR (11/08): opacities of L lung base, retrocardiac pneumonia not excluded -Repeat CXR (11/11): increased left lower lung opacities concerning for potential pneumonia, further worsening opacity on 11/13 CXR -(11/11) CRP 25.5, procal 0.41 -completed 5 days abx with cefepime and azithromycin, discontinued (11/17) -trend cbc (2) CHF exacerbation: Plan: Acute on chronic HFpEF exacerbation, resolved -Likely caused by excessive salt intake via deer bologna in short period of time in setting of severe aortic stenosis -Troponins of low 30s- likely demand ischemia from physiologic stress, EKG does not show concern for infarct -Repeat echocardiogram: EF 55-60% down from 60-65% in April 2021, worsened aortic stenosis -CXR on admission without overt pulmonary edema but demonstrating some opacities of L lung base, worsening congestion on repeat CXR 11/11, repeat CXR on 11/13 with further worsening congestion and opacity primarily L > R -Cautious diuresis given history of CKD + severe aortic stenosis. Continue Lasix 40 mg PO daily -Cr 1.38, stable near baseline. Monitor as diuresis continues. -Continue K supplementation -Trend BMP, daily standing weights, strict I/O's -PT/OT recommending rehab/SNF, in agreement. Tentatively planned for rehab at [facility]. (3) Hemoptysis: Plan: -Hemoptysis in setting of persistent cough 2/2 pneumonia + HFpEF exacerbation, Resolved -Suspect the hemoptysis is attributed to inflammatory damage of airway mucosa 2/2 acute illness + cough -Tessalon Perles PRN, continue Mucinex -Trend CBC (4) Epistaxis: Plan: -One incident of minor transient self-resolving epistaxis on 11/13 -Suspect due to irritation of nasal mucosa -Nasal saline sprays PRN, humidified O2 as needed -trend PT/INR (5) Leg pain, bilateral: Plan: -Unclear history given pt's hearing impairment + mild cognitive impairment -Suspect this may be diabetic neuropathy pain based on limited history and since pt was taking OTC Nerve Miracle -However, pattern of pain may indicate lumbar radiculopathy- no previous CT of spine in chart but 08/2020 XR spine demonstrating some osteophytes and L4 spondylolisthesis. Incongruent with patient's report of pain which appears to be in L3 distribution -kidney function has continued to be stable, started 100 mg of gabapentin BID on 11/16, continue -Repeat XR lumbar spine 11/13 without significant change -Pain control- scheduled Tylenol, oxycodone 5 mg q6h (6) Severe aortic stenosis: Plan: -Suspect this was a strong contributor to current CHF exacerbation -Pt will very likely need surgical intervention, anticipate this will be done as outpatient once CHF exacerbation resolves -Discussed need for intervention with who is in agreement and pt will follow up with boilermaker welder next month (7) CKD (chronic kidney disease): Plan: CKD Stage 3 -Cr 1.89 upon admission, with range 1.64-1.91 -Cr 1.38 today -Trend BMP -Expect slightly higher increases of creatinine with diuresis due to aortic stenosis' contribution to kidney hypoperfusion -Pt would benefit from RADHA/ARB therapy given comorbidities of CKD + DM2 + CHF. 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, status post left upper lobe lobectomy in 2018 -Continue duonebs q8h prn, guaifenesin ER 1200 mg po bid, routine inhalers daily (9) CAD (coronary artery disease): Plan: Continue aspirin, metoprolol, isosorbide dinitrate, simvastatin (10) Diabetes: Plan: Holding home dulaglutide Humalog 75/25 home regimen altered- 95u qAM + 60u qPM switched to 30u qAM + 15u qPM (11) Hypertension: Plan: -Continue isosorbide dinitrate, metoprolol -Holding home triamterene/HCTZ -BPs currently stable (12) History of lobectomy of lung: Plan: See above (13) Lung cancer: Plan: See above (14) High cholesterol: Plan: Continue simvastatin 20 mg at bedtime (15) Gastro-esophageal reflux: Plan: Continue omeprazole/pantoprazole (16) Obstructive sleep apnea syndrome: Plan: CPAP at bedtime as needed Plan: FENGI: Low salt, heart healthy, DM2, fluid restriction Code status: DNR/DNI DVT ppx: Lovenox daily Isolation: None Dispo: PCU Admission and Anticipated Discharge Date Admission Date: November 08, 2021 Supervising Physician Co-Signing Physician Notes I personally examined the patient and verified all mccrary points of history and exam, discussed case, and agree with decision making with Dr Miguel [place] like he did better with PT today. No other new complaints. Still just waiting on placement. vitals noted nad heent nc at mmm breathing unlabored lungs overall clear walking weak with walker and PT assistance PNA - completed course of azithro and cefepime appears improved HFpEF w/ exacerbation - continue home meds, now appears to be compensated CKD III - trend BMP periodically, avoid nephrotoxic interventions while able Chronic lower extremity neuropathic pain - started gabapentin 100mg BID and monitor for sedation, adverse effect for rehab once bed available Subjective Patient seen at bedside this morning. No overnight events reported. Continues to do well on room air. Has been ambulating more with walker and uses incentive spirometer regularly which is helping. Surprised himself yesterday with his ambulation progress. He thinks his bilateral leg edema is improving as well. Review of Systems Review of Systems: All systems reviewed & are unremarkable except as noted in Subjective Physical Exam Constitutional: WD/WN, vitals as above Eyes: + anicteric sclerae ENMT: Ears: + hearing impairment (has hearing aids) Neck: trachea midline, no thyromegaly Respiratory: normal respiratory effort and able to speak in complete sentences; no labored breathing Auscultation: + wheezes (mildly diffuse on expiration) Cardiovascular: Rate/Rhythm: regular rate and regular rhythm Heart Sounds: + murmur (holosystolic) Extremities: + edema (trace lower extremities) Gastrointestinal (Abdomen): normal bowel sounds, soft, nontender, no hepatosplenomegaly Musculoskeletal: Head/Neck/Chest: normocephalic and head atraumatic Skin: no rashes, warm and dry Neurologic: moves all extremities Psychiatric: A+Ox3, euthymic affect Results & Data Results & Data ([facility]) Vital Signs (Past 12 Hours) Vital Signs Temp Pulse Resp BP Pulse Ox 11/18/21 07:25 36.6 C 68 16 146/66 H 96 11/17/21 20:30 36.7 C 64 14 126/52 L 96 Resident Activity Tracking Resident Involvement: Resident Care Provided Care Provided: Adult Hospital Medicine
[2021-11-18] MEDS: ASPIRIN 81 MG ECTAB PO SCH ×2 (08:46→21:48)
[2021-11-18] MEDS: METOPROLOL TARTRATE 50 MG TAB PO SCH ×2 (08:46→21:48)
[2021-11-18] MEDS: MULTIVITAMIN TAB PO SCH (08:46)
[2021-11-18] MEDS: FERROUS SULFATE 325 MG TAB PO SCH (08:46)
[2021-11-18] MEDS: FUROSEMIDE 40 MG TAB PO SCH (08:46)
[2021-11-18] MEDS: guaiFENesin 600 MG TABCR PO SCH ×2 (08:46→21:48)
[2021-11-18] MEDS: PANTOprazole 40 MG TAB PO SCH (08:46)
[2021-11-18] MEDS: ENOXAPARIN INJ 40 MG/0.4 ML SYR SQ SCH (08:47)
[2021-11-18] MEDS: SODIUM CHLORIDE 0.65% NA SOLN 45 ML (OCEAN) SCH (08:47)
[2021-11-18] MEDS: UMECLIDINIUM/VILANTEROL 62.5/25MCG 7 PUFFS/INHALER INH SCH (08:47)
[2021-11-18] MEDS: GABAPENTIN 100 MG CAP PO SCH ×2 (08:47→21:48)
[2021-11-18] MEDS: ISOSORBIDE MONO EXTENDED REL 60 MG TABCR PO SCH (08:47)
[2021-11-18] MEDS: INSULIN LISPRO 75%/25% SQ SCH ×2 (08:48→17:37)
[2021-11-18] MEDS: INSULIN ASPART PER UNIT SC SCH ×4 (08:49→22:37)
[2021-11-18] MEDS: POTASSIUM CHLORIDE CRTAB 20 MEQ TABCR PO SCH ×2 (08:54→21:54)
[2021-11-18] MEDS: POLYETHYLENE (MIRALAX) 17 GM PACK PO SCH ×2 (08:54→21:44)
--- NOTE | 2021-11-18 18:57 | Billing Data ---
Date of Service November 18, 2021 Coding Level of Care Code 99421 Subseq Hosp Care Lvl 2
[2021-11-18] MEDS: oxyCODONE HCL IR 5 MG TAB (IMMEDIATE RELEASE) PO PRN (20:14)
[2021-11-18] MEDS: SIMVASTATIN 20 MG TAB PO SCH (21:48)
[2021-11-18] MEDS: DICLOFENAC SOD 1% GEL 100 GM TUBE EXT PRN (21:54)
[2021-11-19] MEDS: ACETAMINOPHEN 500 MG TAB PO SCH ×3 (02:14→17:32)
--- NOTE | 2021-11-19 06:55 | Hospitalist Progress Note ---
Date of Service November 19, 2021 Assessment & Plan (1) Leukocytosis: Plan: Community acquired pneumonia, resolved -WBC wnl -CXR (11/08): opacities of L lung base, retrocardiac pneumonia not excluded -Repeat CXR (11/11): increased left lower lung opacities concerning for potential pneumonia, further worsening opacity on 11/13 CXR -(11/11) CRP 25.5, procal 0.41 -completed 5 days abx with cefepime and azithromycin, discontinued (11/17) -trend cbc (2) CHF exacerbation: Plan: Acute on chronic HFpEF exacerbation, resolved -Likely caused by excessive salt intake via deer bologna in short period of time in setting of severe aortic stenosis -Troponins of low 30s- likely demand ischemia from physiologic stress, EKG does not show concern for infarct -Repeat echocardiogram: EF 55-60% down from 60-65% in April 2021, worsened aortic stenosis -CXR on admission without overt pulmonary edema but demonstrating some opacities of L lung base, worsening congestion on repeat CXR 11/11, repeat CXR on 11/13 with further worsening congestion and opacity primarily L > R -Cautious diuresis given history of CKD + severe aortic stenosis. Continue Lasix 40 mg PO daily -Cr 1.46, stable near baseline. Monitor as diuresis continues. -Continue K supplementation -Trend BMP, daily standing weights, strict I/O's -PT/OT recommending rehab/SNF, in agreement. Tentatively planned for rehab at [facility]. (3) Hemoptysis: Plan: -Hemoptysis in setting of persistent cough 2/2 pneumonia + HFpEF exacerbation, Resolved -Suspect the hemoptysis is attributed to inflammatory damage of airway mucosa 2/2 acute illness + cough -Tessalon Perles PRN, continue Mucinex (4) Epistaxis: Plan: -One incident of minor transient self-resolving epistaxis on 11/13, resolved -Suspect due to irritation of nasal mucosa -Nasal saline sprays PRN, humidified O2 as needed (5) Leg pain, bilateral: Plan: -Unclear history given pt's hearing impairment + mild cognitive impairment -Suspect this may be diabetic neuropathy pain based on limited history and since pt was taking OTC Nerve Miracle -However, pattern of pain may indicate lumbar radiculopathy- no previous CT of spine in chart but 08/2020 XR spine demonstrating some osteophytes and L4 spondylolisthesis. Incongruent with patient's report of pain which appears to be in L3 distribution -kidney function has continued to be stable, started 100 mg of gabapentin BID on 11/16, continue -Repeat XR lumbar spine 11/13 without significant change -Pain control- scheduled Tylenol, oxycodone 5 mg q6h (6) Severe aortic stenosis: Plan: -Suspect this was a strong contributor to current CHF exacerbation -Pt will very likely need surgical intervention, anticipate this will be done as outpatient once CHF exacerbation resolves -Discussed need for intervention with who is in agreement and pt will follow up with waste specialist next month (7) CKD (chronic kidney disease): Plan: CKD Stage 3 -Cr 1.89 upon admission, with range 1.64-1.91 -Cr 1.46 today, stable -Trend BMP -Expect slightly higher increases of creatinine with diuresis due to aortic stenosis' contribution to kidney hypoperfusion -Pt would benefit from RADHA/ARB therapy given comorbidities of CKD + DM2 + CHF. 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, s/p left upper lobe lobectomy in 2018 -Continue duonebs q8h prn, guaifenesin ER 1200 mg po bid, routine inhalers daily (9) CAD (coronary artery disease): Plan: Continue aspirin, metoprolol, isosorbide dinitrate, simvastatin (10) Diabetes: Plan: Holding home dulaglutide Humalog 75/25 home regimen altered- 95u qAM + 60u qPM switched to 30u qAM + 15u qPM (11) Hypertension: Plan: -Continue isosorbide dinitrate, metoprolol -Holding home triamterene/HCTZ -BPs currently stable (12) History of lobectomy of lung: Plan: See above (13) Lung cancer: Plan: See above (14) High cholesterol: Plan: Continue simvastatin 20 mg at bedtime (15) Gastro-esophageal reflux: Plan: Continue omeprazole/pantoprazole (16) Obstructive sleep apnea syndrome: Plan: CPAP at bedtime as needed Plan: FENGI: Low salt, heart healthy, DM2, fluid restriction Code status: DNR/DNI DVT ppx: Lovenox daily Isolation: None Dispo: PCU Admission and Anticipated Discharge Date Admission Date: November 08, 2021 Supervising Physician Co-Signing Physician Notes I personally examined the patient and verified all mccrary points of history and e xam, discussed case, and agree with decision making with Dr Miguel Feeling okay. Informed by case management SNF likely Wednesday, possibly tomorrow. vitals noted nad heent nc at mmm breathing unlabored no accessory muscles no conversational dyspnea good effort. PNA - completed course of azithro and cefepime appears improved, no regression HFpEF w/ exacerbation - continue home meds, now appears to be compensated, appears stable CKD III - trend BMP periodically, avoid nephrotoxic interventions while able Chronic lower extremity neuropathic pain - started gabapentin 100mg BID and monitor for sedation, adverse effect for rehab once bed available Subjective Seen at bedside this morning. No overnight events reported. Breathing continues to do well. Has been using incentive spirometer and flutter valve which does seem to be helping. Does complain of chronic neuropathy bilateral lower legs, specifically at right big toe but says he has had this for the past 20 years. Review of Systems Review of Systems: All systems reviewed & are unremarkable except as noted in Subjective Physical Exam Constitutional: WD/WN, vitals as above Eyes: + anicteric sclerae ENMT: Ears: + hearing impairment (has hearing aids) Neck: trachea midline, no thyromegaly Respiratory: normal respiratory effort and able to speak in complete sentences; no labored breathing Auscultation: + wheezes (mildly diffuse) Cardiovascular: Rate/Rhythm: regular rate and regular rhythm Heart Sounds: + murmur (holosystolic) Extremities: + edema (trace lower extremities) Gastrointestinal (Abdomen): normal bowel sounds, soft, nontender, no hepatosplenomegaly Musculoskeletal: Head/Neck/Chest: normocephalic and head atraumatic Neurologic: moves all extremities Psychiatric: A+Ox3, euthymic affect Results & Data Results & Data ([facility]) Vital Signs (Past 12 Hours) Vital Signs Temp Pulse Pulse Resp BP Pulse Ox 11/18/21 22:48 36.8 C 58 L 18 134/65 98 11/18/21 21:45 69 142/61 H Resident Activity Tracking Resident Involvement: Resident Care Provided Care Provided: Adult Hospital Medicine
[2021-11-19 07:37] LABS: Calcium 8.6 mg/dl (8.5-10.1); Est GFR (African American) 52.6 ml/min; Est GFR (Non-African American) 45.4 ml/min; Potassium 4.6 mmol/L (3.5-5.1)
[2021-11-19] MEDS: INSULIN ASPART PER UNIT SC SCH ×4 (08:26→22:56)
[2021-11-19] MEDS: FERROUS SULFATE 325 MG TAB PO SCH (08:33)
[2021-11-19] MEDS: ASPIRIN 81 MG ECTAB PO SCH ×2 (08:33→21:05)
[2021-11-19] MEDS: ISOSORBIDE MONO EXTENDED REL 60 MG TABCR PO SCH (08:33)
[2021-11-19] MEDS: METOPROLOL TARTRATE 50 MG TAB PO SCH ×2 (08:33→21:05)
[2021-11-19] MEDS: POTASSIUM CHLORIDE CRTAB 20 MEQ TABCR PO SCH ×2 (08:33→21:05)
[2021-11-19] MEDS: GABAPENTIN 100 MG CAP PO SCH ×2 (08:33→21:05)
[2021-11-19] MEDS: FUROSEMIDE 40 MG TAB PO SCH (08:34)
[2021-11-19] MEDS: PANTOprazole 40 MG TAB PO SCH (08:34)
[2021-11-19] MEDS: MULTIVITAMIN TAB PO SCH (08:34)
[2021-11-19] MEDS: UMECLIDINIUM/VILANTEROL 62.5/25MCG 7 PUFFS/INHALER INH SCH (08:34)
[2021-11-19] MEDS: guaiFENesin 600 MG TABCR PO SCH ×2 (08:34→21:05)
[2021-11-19] MEDS: SODIUM CHLORIDE 0.65% NA SOLN 45 ML (OCEAN) SCH (08:34)
[2021-11-19] MEDS: INSULIN LISPRO 75%/25% SQ SCH ×2 (08:35→17:33)
[2021-11-19] MEDS: ENOXAPARIN INJ 40 MG/0.4 ML SYR SQ SCH (08:35)
[2021-11-19] MEDS: POLYETHYLENE (MIRALAX) 17 GM PACK PO SCH ×2 (08:35→20:47)
[2021-11-19 08:56] LABS: Basophils # (auto) 0.04 K/uL (0-0.2); Basophils % (auto) 0.4 %; Eosinophils # (auto) 0.39 K/uL (0-0.5); Hematocrit (blood only) 38.9 % (42-52); Hemoglobin 12.4 g/dL (14.0-18.0); Immature Granulocytes # (auto) 0.16 K/uL (0.00-0.02); Immature Granulocytes % (auto) 1.6 %; Lymphocytes # (auto) 2.11 K/uL (1.2-3.4); Lymphocytes % (auto) 21.7 %; Mean Corpuscular Hemoglobin 30.8 pg (25-34); Mean Corpuscular Hgb Conc 31.9 g/dL (32-36); Mean Corpuscular Volume 96.8 fL (80-100); Mean Platelet Volume 9.9 fL (7.4-10.4); Monocytes # (auto) 0.71 K/uL (0.11-0.59); Monocytes % (auto) 7.3 %; Neutrophils # (auto) 6.31 K/uL (1.4-6.5); Platelet Count 374 K/uL (130-400); RDW Coefficient of Variation 13.7 % (11.5-14.5); RDW Standard Deviation 48.8 fL (36.4-46.3); Red Blood Count 4.02 M/uL (4.7-6.1); White Blood Count 9.72 K/uL (4.8-10.8)
--- NOTE | 2021-11-19 19:30 | Billing Data ---
Date of Service November 19, 2021 Coding Level of Care Code 47769 Subseq Hosp Care Lvl 1
[2021-11-19] MEDS: oxyCODONE HCL IR 5 MG TAB (IMMEDIATE RELEASE) PO PRN (21:04)
[2021-11-19] MEDS: SIMVASTATIN 20 MG TAB PO SCH (21:05)
[2021-11-19] MEDS: DICLOFENAC SOD 1% GEL 100 GM TUBE EXT PRN (21:05)
[2021-11-20] MEDS: ACETAMINOPHEN 500 MG TAB PO SCH ×2 (01:45→08:13)
[2021-11-20 06:58] LABS: Basophils # (auto) 0.04 K/uL (0-0.2); Basophils % (auto) 0.4 %; Eosinophils # (auto) 0.41 K/uL (0-0.5); Eosinophils % (auto) 4.3 %; Hematocrit (blood only) 38.4 % (42-52); Hemoglobin 12.5 g/dL (14.0-18.0); Immature Granulocytes # (auto) 0.13 K/uL (0.00-0.02); Immature Granulocytes % (auto) 1.4 %; Lymphocytes # (auto) 2.11 K/uL (1.2-3.4); Mean Corpuscular Hemoglobin 31.3 pg (25-34); Mean Corpuscular Hgb Conc 32.6 g/dL (32-36); Mean Platelet Volume 9.8 fL (7.4-10.4); Monocytes # (auto) 0.71 K/uL (0.11-0.59); Monocytes % (auto) 7.4 %; Neutrophils # (auto) 6.17 K/uL (1.4-6.5); Neutrophils % (auto) 64.5 %; Platelet Count 398 K/uL (130-400); RDW Coefficient of Variation 13.6 % (11.5-14.5); RDW Standard Deviation 47.4 fL (36.4-46.3); White Blood Count 9.57 K/uL (4.8-10.8)
[2021-11-20 07:25] LABS: BUN Creatinine Ratio 21.9 (10-20); Calcium 8.9 mg/dl (8.5-10.1); Est GFR (African American) 52.6 ml/min; Est GFR (Non-African American) 45.4 ml/min; Potassium 4.4 mmol/L (3.5-5.1)
[2021-11-20] MEDS: INSULIN ASPART PER UNIT SC SCH ×2 (08:07→12:23)
[2021-11-20] MEDS: DICLOFENAC SOD 1% GEL 100 GM TUBE EXT PRN (08:13)
[2021-11-20] MEDS: oxyCODONE HCL IR 5 MG TAB (IMMEDIATE RELEASE) PO PRN (08:13)
[2021-11-20] MEDS: FUROSEMIDE 40 MG TAB PO SCH (08:14)
[2021-11-20] MEDS: PANTOprazole 40 MG TAB PO SCH (08:14)
[2021-11-20] MEDS: UMECLIDINIUM/VILANTEROL 62.5/25MCG 7 PUFFS/INHALER INH SCH (08:14)
[2021-11-20] MEDS: METOPROLOL TARTRATE 50 MG TAB PO SCH (08:14)
[2021-11-20] MEDS: ASPIRIN 81 MG ECTAB PO SCH (08:14)
[2021-11-20] MEDS: guaiFENesin 600 MG TABCR PO SCH (08:14)
[2021-11-20] MEDS: ISOSORBIDE MONO EXTENDED REL 60 MG TABCR PO SCH (08:14)
[2021-11-20] MEDS: MULTIVITAMIN TAB PO SCH (08:14)
[2021-11-20] MEDS: GABAPENTIN 100 MG CAP PO SCH (08:14)
[2021-11-20] MEDS: SODIUM CHLORIDE 0.65% NA SOLN 45 ML (OCEAN) SCH (08:15)
[2021-11-20] MEDS: FERROUS SULFATE 325 MG TAB PO SCH (08:15)
[2021-11-20] MEDS: POLYETHYLENE (MIRALAX) 17 GM PACK PO SCH (08:15)
[2021-11-20] MEDS: ENOXAPARIN INJ 40 MG/0.4 ML SYR SQ SCH (08:15)
[2021-11-20] MEDS: POTASSIUM CHLORIDE CRTAB 20 MEQ TABCR PO SCH (08:15)
[2021-11-20] MEDS: INSULIN LISPRO 75%/25% SQ SCH (08:20)
--- NOTE | 2021-11-20 13:40 | Discharge Summary ---
Date of Service November 20, 2021 Admission HPI Per Admitting Provider The patient is a 72-year-old male with a past medical history including CKD, severe aortic stenosis, morbid obesity, pulmonary hypertension, mixed restrictive and obstructive lung disease, VADIM, dyslipidemia, diabetes mellitus, GERD, hypertension, hyperlipidemia, status post left upper lobe lobectomy for primary adenocarcinoma of lung, and squamous cell carcinoma of skin of face. The patient presents with symptoms as noted above. He has been taking his medications as directed. Has not had any recent travels or sick exposures. Upon discussion of dietary habits, his reports that he has been given a large amount of venison bologna, which has eaten recently Admission Exam Per Admitting Provider HEENT--PERRL, EOMI, mucous membranes and oropharynx normal. Neck--supple. No JVD. No bruits. Thyroid normal, trachea midline, no adenopathy. Heart--normal S1 and S2. No murmurs, rubs or gallops. Lungs--crackles at the bases assisted up bilaterally, left worse than right. No respiratory distress, no accessory muscle use. Abdomen--normal bowel sounds and soft. Nontender. Nondistended. Obesity Extremities--no cyanosis or clubbing. 2+ bilateral pretibial pitting edema. There are good distal pulses b/l. Dermatologic--areas of mild erythema due to injury Neurologic--cranial nerves II through XII grossly intact. Rheumatologic--normal range of motion. Psychiatric--normal affect. Principal Diagnosis CHF exacerbation, pneumonia Discharge Exam Constitutional WD/WN, vitals as above Eyes + anicteric sclerae ENMT Ears: + hearing impairment (has hearing aids) Neck trachea midline, no thyromegaly Respiratory normal respiratory effort, lungs clear to auscultation normal respiratory effort and able to speak in complete sentences; no labored breathing Auscultation: + wheezes (mildly diffuse) Cardiovascular Rate/Rhythm: regular rate and regular rhythm Heart Sounds: + murmur (holosystolic) Extremities: + edema (trace lower extremities) Gastrointestinal (Abdomen) normal bowel sounds, soft, nontender, no hepatosplenomegaly Musculoskeletal Head/Neck/Chest: normocephalic and head atraumatic Neurologic moves all extremities Psychiatric A+Ox3, euthymic affect Discharge Data Allergies Allergy/AdvReac Type Severity Reaction Status Date / Time sulfamethoxazole Allergy Hives Unverified 11/08/21 22:38 [From Bactrim] trimethoprim [From Bactrim] Allergy Hives Unverified 11/08/21 22:38 Consultations 11/08/21 22:31 ED Decision to Admit Stat 11/09/21 00:42 Consult Cardiology Routine Ordered Studies Laboratory Results WBC 9.57 K/uL (4.8-10.8) 11/20/21 05:38 RBC 4.00 M/uL (4.7-6.1) L 11/20/21 05:38 Hgb 12.5 g/dL (14.0-18.0) L 11/20/21 05:38 Hct 38.4 % (42-52) L 11/20/21 05:38 MCV 96.0 fL (80-100) 11/20/21 05:38 MCH 31.3 pg (25-34) 11/20/21 05:38 MCHC 32.6 g/dL (32-36) 11/20/21 05:38 RDW Std Deviation 47.4 fL (36.4-46.3) H 11/20/21 05:38 RDW Coeff of Mac 13.6 % (11.5-14.5) 11/20/21 05:38 Plt Count 398 K/uL (130-400) 11/20/21 05:38 MPV 9.8 fL (7.4-10.4) 11/20/21 05:38 Immature Gran % (Auto) 1.4 % 11/20/21 05:38 Neut % (Auto) 64.5 % 11/20/21 05:38 Lymph % (Auto) 22.0 % 11/20/21 05:38 [place] % (Auto) 7.4 % 11/20/21 05:38 Eos % (Auto) 4.3 % 11/20/21 05:38 Baso % (Auto) 0.4 % 11/20/21 05:38 Neut # (Auto) 6.17 K/uL (1.4-6.5) 11/20/21 05:38 Lymph # (Auto) 2.11 K/uL (1.2-3.4) 11/20/21 05:38 [place] # (Auto) 0.71 K/uL (0.11-0.59) H 11/20/21 05:38 Eos # (Auto) 0.41 K/uL (0-0.5) 11/20/21 05:38 Baso # (Auto) 0.04 K/uL (0-0.2) 11/20/21 05:38 Immature Gran # (Auto) 0.13 K/uL (0.00-0.02) H 11/20/21 05:38 PT 11.3 Seconds (9.0-12.0) 11/15/21 06:18 INR 1.1 (0.9-1.1) 11/15/21 06:18 Sodium 138 mmol/L (136-145) 11/20/21 05:38 Potassium 4.4 mmol/L (3.5-5.1) 11/20/21 05:38 Chloride 106 mmol/L (98-107) 11/20/21 05:38 Carbon Dioxide 26 mmol/L (21-32) 11/20/21 05:38 Anion Gap 6 (3-11) 11/20/21 05:38 BUN 32 mg/dl (6-23) H 11/20/21 05:38 Creatinine 1.46 mg/dl (0.6-1.4) H 11/20/21 05:38 Est Cr Clr Drug Dosing 48.0 ml/min 11/20/21 05:38 Est GFR ( Amer) 52.6 ml/min 11/20/21 05:38 Est GFR (Non-Af Amer) 45.4 ml/min 11/20/21 05:38 BUN/Creatinine Ratio 21.9 (10-20) H 11/20/21 05:38 Glucose 94 mg/dl (70-99(Fasting)) 11/20/21 05:38 POC Glucose 121 mg/dl (70-99) H 11/20/21 12:05 Estimat Average Glucose 186 mg/dl 11/09/21 05:33 Hemoglobin A1c 8.1 % (4.5-5.6) H 11/09/21 05:33 Calcium 8.9 mg/dl (8.5-10.1) 11/20/21 05:38 Phosphorus 3.8 mg/dl (2.5-4.9) 11/10/21 06:57 Magnesium 2.6 mg/dl (1.7-2.4) H 11/11/21 07:27 Total Bilirubin 0.9 mg/dl (0.2-1.0) 11/08/21 21:22 Direct Bilirubin 0.2 mg/dl (0-0.2) 11/08/21 21:22 AST 27 U/L (13-39) 11/08/21 21:22 ALT 27 U/L (7-52) 11/08/21 21:22 Alkaline Phosphatase 53 U/L (34-104) 11/08/21 21:22 Total Creatine Kinase 346 U/L (30-223) H 11/08/21 21:22 Troponin I High Sens 30.4 pg/ml (0-20) H 11/09/21 05:33 C-Reactive Protein 25.48 mg/dl (0-0.5) H 11/11/21 13:17 B-Natriuretic Peptide 274 pg/ml (0-100) H 11/08/21 22:29 Total Protein 7.8 gm/dl (6.0-8.3) 11/08/21 21:22 Albumin 3.8 gm/dl (3.4-5.0) 11/10/21 06:57 Procalcitonin 0.41 ng/ml (0-0.5) 11/11/21 13:17 Urine Color Yellow 11/08/21 21:54 Urine Appearance Clear (Clear) 11/08/21 21:54 Urine pH 5.5 (4.5-7.5) 11/08/21 21:54 Ur Specific Jackson 1.012 (1.000-1.030) 11/08/21 21:54 Urine Protein Negative (Negative) 11/08/21 21:54 Urine Glucose (UA) Negative (Negative) 11/08/21 21:54 Urine Ketones Negative (Negative) 11/08/21 21:54 Urine Blood Negative (Negative) 11/08/21 21:54 Urine Nitrite Negative (Negative) 11/08/21 21:54 Urine Bilirubin Negative (Negative) 11/08/21 21:54 Urine Urobilinogen Negative (Negative) 11/08/21 21:54 Ur Leukocyte Esterase Trace (Negative) H 11/08/21 21:54 Urine WBC (Auto) 1-5 /hpf (0-5) 11/08/21 21:54 Urine RBC (Auto) 0-4 /hpf (0-4) 11/08/21 21:54 U Hyaline Cast (Auto) 1-5 /lpf (0-5) 11/08/21 21:54 U Epithel Cells (Auto) 5-10 /lpf (0-5) H 11/08/21 21:54 Urine Bacteria (Auto) Negative (Negative) 11/08/21 21:54 Nasal Screen MRSA (PCR) Negative (Negative) 11/12/21 Unknown SARS-CoV-2, RNA, NAAT NEGATIVE (NEGATIVE) 11/20/21 Unknown Impressions Chest X-Ray 11/13/21 06:48 XR chest 2V PA/lateral CLINICAL HISTORY: pulmonary edema, pneumonia COMPARISON STUDY: Chest CT March 26, 2021. Chest radiograph November 11, 2021. FINDINGS: Postoperative findings within the left lung are noted. Left lung volume loss is again noted. Left lung airspace opacity has increased with diminished left lung aeration. Pulmonary vascular congestion is noted within the right lung. A left-sided rib deformities are present. There is no pneumothorax. No definite pleural effusion. IMPRESSION: 1. Increase in extensive left lung airspace opacity with volume loss. This could reflect pneumonia, atelectasis or asymmetric pulmonary edema. Radiographic follow-up is recommended. 2. Pulmonary vascular congestion. ACT 112: Negative or not required by law. Electronically signed by: Garrett Yanes M.D. 11/13/2021 10:24 AM Lumbar Spine X-Ray 11/13/21 14:34 XR lumbar spine 2-3V CLINICAL HISTORY: Low back pain TECHNIQUE: 5 views of the lumbar spine were obtained. Comparison: Comparison is made to lumbar spine radiographs 09/13/2020 FINDINGS: There is no evidence of an acute fracture. Degenerative changes are seen in the lumbar spine. The alignment is normal. Vascular calcifications are seen. IMPRESSION: Degenerative changes as above without acute fracture or subluxation. ACT 112: Negative or not required by law. Electronically signed by: Adarsh Sommers M.D. 11/13/2021 4:09 PM Hospital Course (1) Leukocytosis: 72-year-old male with a past medical history including CKD, severe aortic stenosis, morbid obesity, pulmonary hypertension, mixed restrictive and obstructive lung disease, VADIM, dyslipidemia, diabetes mellitus, GERD, hypertension, hyperlipidemia, status post left upper lobe lobectomy for primary adenocarcinoma of lung, and squamous cell carcinoma of skin of face presents for few weeks of generalized weakness, SOB, and fatigue. Community acquired pneumonia, resolved -wbc wnl -CXR (11/08): opacities of L lung base, retrocardiac pneumonia not excluded -Repeat CXR (11/11): increased left lower lung opacities concerning for potential pneumonia, further worsening opacity on 11/13 CXR -completed 5 days abx with cefepime and azithromycin, discontinued (11/17) Acute on chronic HFpEF exacerbation, resolved -Likely caused by excessive salt intake via deer bologna in short period of time in setting of severe aortic stenosis -Troponins of low 30s- likely demand ischemia from physiologic stress, EKG does not show concern for infarct -Repeat echocardiogram: EF 55-60% down from 60-65% in April 2021, worsened aortic stenosis -CXR on admission without overt pulmonary edema but demonstrating some opacities of L lung base, worsening congestion on repeat CXR 11/11, repeat CXR on 11/13 with further worsening congestion and opacity primarily L > R -Cautious diuresis given history of CKD + severe aortic stenosis. Continue Lasix 40 mg PO daily -Cr 1.46, stable near baseline. -Continue K supplementation -Trended BMP, daily standing weights, strict I/O's -PT/OT recommending rehab/SNF, in agreement. Will be discharged to SNF. Hemoptysis, resolved -Hemoptysis in setting of persistent cough 2/2 pneumonia + HFpEF exacerbation -Suspect the hemoptysis is attributed to inflammatory damage of airway mucosa 2/2 acute illness + cough -tx with tessalon Perles prn, Mucinex Epistaxis, resolved -One incident of minor transient self-resolving epistaxis on 11/13 -Suspect due to irritation of nasal mucosa -tx with Nasal saline sprays prn, humidified O2 as needed Leg pain, bilateral -Suspect this may be diabetic neuropathy pain based on limited history and since pt was taking OTC Nerve Miracle -However, pattern of pain may indicate lumbar radiculopathy- no previous CT of spine in chart but 08/2020 XR spine demonstrating some osteophytes and L4 spondyl olisthesis. Incongruent with patient's report of pain which appears to be in L3 distribution -Repeat XR lumbar spine 11/13 without significant change -Pain control in hospital- scheduled Tylenol, oxycodone 5 mg q6h -started 100 mg of gabapentin BID during hospital stay, tolerated well and can continue. Severe aortic stenosis -Suspect this was a strong contributor to current CHF exacerbation -Pt will very likely need surgical intervention, anticipate this will be done as outpatient once CHF exacerbation resolves -Discussed need for intervention with who is in agreement and pt willfollow up with bottling supervisor next month CKD Stage 3 -Cr 1.89 upon admission, with range 1.64-1.91 -Cr 1.46 on discharge, stable -Expect slightly higher increases of creatinine with diuresis due to aortic stenosis' contribution to kidney hypoperfusion -Pt would benefit from RADHA/ARB therapy given comorbidities of CKD + DM2 + CHF. BPs stable currently,consider initiating as outpatient after discharge Mixed restrictive and obstructive lung disease -Mixed restrictive and obstructive lung disease/adenocarcinoma of left lung, s/p left upper lobe lobectomy in 2018 CAD (coronary artery disease) -Continue aspirin, metoprolol, isosorbide dinitrate, simvastatin Diabetes -continue home dulaglutide on discharge -continue home Humalog 75/25 home regimen altered- 95u qAM + 60u qPM on discharge Hypertension -Continue isosorbide dinitrate, metoprolol -continue home triamterene/HCTZ; was held during hospital stay due to elevated Cr which is now stable High cholesterol -Continue simvastatin 20 mg at bedtime Gastro-esophageal reflux -Continue omeprazole/pantoprazole Obstructive sleep apnea -CPAP at bedtime as needed (2) CHF exacerbation: (3) Hemoptysis: (4) Epistaxis: (5) Leg pain, bilateral: (6) Severe aortic stenosis: (7) CKD (chronic kidney disease): (8) Mixed restrictive and obstructive lung disease: (9) CAD (coronary artery disease): (10) Diabetes: (11) Hypertension: (12) History of lobectomy of lung: (13) Lung cancer: (14) High cholesterol: (15) Gastro-esophageal reflux: (16) Obstructive sleep apnea syndrome: Total Time Total Time Spent Total Time Spent (In Minutes): 30 Discharge Plan Discharge Items Patient Disposition: Transfer Nursing Home Fac Reason For Visit: CHF EXACERBATION Discharge Diagnosis: CHF exacerbation, pneumonia Activity: Per Instructions section Non-emergency contact: Primary Care Provider Call non-emergency contact if: you have any medication questions and your symptoms worsen Follow-up/Referrals: Chris Richards MD [Primary Care Provider] - Nathaniel Naik DO [Resident] - Diet: Carb Consistent or DM2, Heart Healthy and Low Sodium (2gm) Addtl Attending Provider Instructions: Community acquired pneumonia, resolved -CXR (11/08): opacities of L lung base, retrocardiac pneumonia not excluded -Repeat CXR (11/11): increased left lower lung opacities concerning for potential pneumonia, further worsening opacity on 11/13 CXR -completed 5 days abx with cefepime and azithromycin, discontinued (11/17) Acute on chronic HFpEF exacerbation,resolved -Likely caused by excessive salt intake in setting of severe aortic stenosis -Troponins of low 30s- likely demand ischemia from physiologic stress, EKG does not show concern for infarct -Repeat echocardiogram: EF 55-60% down from 60-65% in April 2021, worsened aortic stenosis -CXR on admission without overt pulmonary edema but demonstrating some opacities of L lung base, worsening congestion on repeat CXR 11/11, repeat CXR on 11/13 with further worsening congestion and opacity primarily L > R -Cautious diuresis given history of CKD + severe aortic stenosis.Continue Lasix 40 mg PO daily Hemoptysis, resolved -Hemoptysis in setting of persistent cough 2/2 pneumonia + HFpEF exacerbation -Suspect the hemoptysis is attributed to inflammatory damage of airway mucosa 2/2 acute illness + cough Epistaxis, resolved -One incident of minor transient self-resolving epistaxis on 11/13 -Suspect due to irritation of nasal mucosa Leg pain, bilateral: -Suspect this may be diabetic neuropathy pain based on limited history and since pt was taking OTC Nerve Miracle -However, pattern of pain may indicate lumbar radiculopathy- no previous CT of spine in chart but 08/2020 XR spine demonstrating some osteophytes and L4 spondylolisthesis. Incongruent with patient's report of pain which appears to be in L3 distribution -Repeat XR lumbar spine 11/13 without significant change -Pain control in hospital- scheduled Tylenol, oxycodone 5 mg q6h -continue 100 mg of gabapentin BID Severe aortic stenosis -Suspect this was a strong contributor to current CHF exacerbation -Pt will very likely need surgical intervention, anticipate this will be done as outpatient once CHF exacerbation resolves -Discussed need for intervention with who is in agreement and pt will follow up with bottling supervisor next month CKD Stage 3 -Cr 1.89 upon admission, with range 1.64-1.91 -Cr 1.46 on discharge, stable -Expect slightly higher increases of creatinine with diuresis due to aortic stenosis' contribution to kidney hypoperfusion -Pt would benefit from RADHA/ARB therapy given comorbidities of CKD + DM2 + CHF. BPs stable currently,consider initiating as outpatient after discharge Mixed restrictive and obstructive lung disease -Mixed restrictive and obstructive lung disease/adenocarcinoma of left lung, s/p left upper lobe lobectomy in 2018 CAD (coronary artery disease) -Continue aspirin, metoprolol, isosorbide dinitrate, simvastatin Diabetes -continue home dulaglutide -continue Humalog 75/25 home regimen altered- 95u qAM + 60u qPM Hypertension -Continue isosorbide dinitrate, metoprolol -continue home triamterene/HCTZ High cholesterol -Continue simvastatin 20 mg at bedtime Gastro-esophageal reflux -Continue omeprazole/pantoprazole Obstructive sleep apnea -CPAP at bedtime as needed Pending Studies at Discharge: No Stand-Alone Forms: [facility] Skilled Items Patient informed of condition?: Yes DNR: Yes Discharge Level of Care: Skilled Communicable Disease: No Discharge Prognosis: Stable Lines: None Urinary Catheter: No Medications and DC Order Prescriptions: New gabapentin 100 mg Capsule 100 mg PO BID Qty: 30 RF: 0 Continued (DME) Flutter Valve Device See Rx Instructions .MEDSUPPLY Qty: 1 RF: 0 fluticasone propionate [Allergy Relief (fluticasone)] 50 mcg/actuation spray,suspension 1 spray intranasal DAILY Qty: 9.9 RF: 3 Anoro Ellipta 62.5-25 mcg/actuation blister with device 1 inh inhalation DAILY Qty: 60 RF: 3 guaifenesin [Mucinex] 1,200 mg tablet extended release 12hr 1,200 mg PO BID RF: 0 furosemide 40 mg tablet 40 mg PO DAILY RF: 0 ferrous sulfate 324 mg (65 mg iron) tablet,delayed release (DR/EC) 324 mg PO DAILY RF: 0 (DME) CPAP Machine Misc See Rx Instructions .ROUTE .MEDSUPPLY Qty: 1 RF: 0 (DME) Aeroneb Go Nebulizer Misc See Rx Instructions .MEDSUPPLY Qty: 1 RF: 0 (DME) CPAP Supplies Misc See Rx Instructions .MEDSUPPLY Qty: 1 RF: 0 Trulicity 0.75 mg/0.5 mL pen injector 0.75 mg subcut .weekly RF: 0 potassium chloride 10 mEq capsule, extended release 10 meq PO DAILY RF: 0 ipratropium-albuterol 0.5 mg-3 mg(2.5 mg base)/3 mL solution for nebulization 3 ml inhalation Q8H PRN (Reason: shortness of breath or wheezing) Qty: 270 RF: 3 multivitamin Tablet 1 tab PO QAM RF: 0 aspirin 81 mg Tablet,Delayed Release (Dr/Ec) 81 mg PO BID RF: 0 simvastatin 20 mg Tablet 20 mg PO HS RF: 0 metoprolol tartrate 50 mg Tablet 50 mg PO BID RF: 0 triamterene-hydrochlorothiazid 37.5-25 mg Tablet 1 tab PO QAM RF: 0 coenzyme Q10 [CoQ-10] 100 mg Capsule 200 mg PO QAM RF: 0 omeprazole magnesium [Prilosec OTC] 20 mg Tablet,Delayed Release (Dr/Ec) 20 mg PO QAM RF: 0 Humalog Mix 75-25(U-100)Insuln 100 unit/mL (75-25) suspension 95 unit SUBCUT QAM RF: 0 Humalog Mix 75-25(U-100)Insuln 100 unit/mL (75-25) suspension 60 unit SUBCUT QPM RF: 0 isosorbide mononitrate 60 mg tablet extended release 24 hr 60 mg PO DAILY RF: 0 astragalus root 470 mg Capsule 470 mg PO DAILY RF: 0 Discharge Orders: Discharge Order (Routine); Ordered 11/20/21 Ordered By: Kip Sewell/Other Patient Handouts: Managing Type 2 Diabetes, Special Foot Care for Diabetes Admission Data Admit Date/Time: 11/08/21 23:31 Attending Provider: Philip Poe Admit Provider: Luis nAtonio Xiao Primary Care Provider: Chris Richards Other Providers: [facility] ; [facility] ; Luis Antonio Xiao ; Mikie Garland Jr Other Interventions: Discharge Summary Assessment (RN) Last Done: 11/20/21 10:32 Supervising Physician Co-Signing Physician Notes I personally examined the patient and verified all mccrary points of history and exam, discussed case, and agree with decision making with Dr Miguel Able to go to skilled today! vitals noted nad heent nc at mmm breathing unlabored no accessory muscles no conversational dyspnea good effort. PNA - completed course of azithro and cefepime appears improved, no regression, stable for discharge HFpEF w/ exacerbation - continue home meds, now appears to be compensated, appears stable, given severe aortic stenosisoutpatient consideration for TAVR CKD III - trend BMP periodically, avoid nephrotoxic interventions while able Stable for SNF today Resident Activity Tracking Resident Involvement: Resident Care Provided Care Provided: Adult Hospital Medicine
--- NOTE | 2021-11-20 20:43 | Billing Data ---
Date of Service November 20, 2021 Coding Level of Care Code D/C DAY MANAGEMENT <30 MINS
== END 2021-11-20 12:55 | DRG 291 ==
LOC: ED 20:49 → 2E 23:31 → SUATTDRO 23:31 → 2E 11-09 00:27 → 3E 11-16 13:04

== ENCOUNTER 2022-02-07 23:07 | Inpatient (IN) ==
[2022-02-07 23:41] LABS: Basophils # (auto) 0.05 K/uL (0-0.2); Basophils % (auto) 0.5 %; Eosinophils # (auto) 0.07 K/uL (0-0.50); Eosinophils % (auto) 0.7 %; Hematocrit (blood only) 33.2 % (40.1-51.0); Hemoglobin 10.5 g/dl (14.0-18.0); Immature Granulocytes # (auto) 0.04 K/uL (0.00-0.02); Immature Granulocytes % (auto) 0.4 %; Lymphocytes # (auto) 0.38 K/uL (1.2-3.4); Lymphocytes % (auto) 3.9 %; Mean Corpuscular Hemoglobin 28.6 pg (25.0-34.0); Mean Corpuscular Hgb Conc 31.6 g/dL (32.0-36.0); Mean Corpuscular Volume 90.5 fL (80.0-100.0); Mean Platelet Volume 10.3 fL (9.4-12.4); Monocytes # (auto) 0.73 K/uL (0.24-0.82); Monocytes % (auto) 7.5 %; Neutrophils # (auto) 8.49 K/uL (1.4-6.5); Platelet Count 333 K/uL (130-400); RDW Coefficient of Variation 14.5 % (11.5-14.5); RDW Standard Deviation 47.8 fL (36.4-46.3); Red Blood Count 3.67 M/uL (4.63-6.08); White Blood Count 9.76 K/ul (4.8-10.8)
--- NOTE | 2022-02-07 23:45 | Emergency Department Note ---
Impression & Plan COVID-19 ADMIT ED Provider Note HPI: The patient is a 81-year-old gentleman with history of adenocarcinoma of the lung, status post left upper lung lobectomy, presents emergency department chief complaint shortness of breath and chest pain. Patient states the symptoms have been ongoing for the past 5 days. Patient arrives via EMS, he was noted to be hypoxic at 86% in the field and was placed on nasal cannula oxygen with good improvement, he is mildly tachycardic on arrival but otherwise with stable blood pressure, saturating 96% on 4 L nasal cannula oxygen on arrival. Patient has had some subjective fevers over the past 4 to 5 days. Patient does exhibit some tachypnea with mild to moderate increased work of breathing. ROS: -Pulmonary: Hypoxia, increased work of breathing *10 point review systems was conducted and is otherwise negative unless stated a meg *Outpatient medications and allergy history reviewed PE: General: Alert, moderate increased work of breathing HEENT: Normocephalic, atraumatic Eyes: Extraocular eye movement is intact, no scleral erythema Pulmonary: Tachypnea with diminished air movement bilaterally Cardio: Regular rate and rhythm GI: Abdomen is soft, nontender : No suprapubic tenderness MSK: No evidence of trauma or malformation of the extremities, no edema Skin: No evidence of rash Neuro: Alert, no focal deficits Psychiatric: Cooperative library monitor: - An order was placed for continuous cardiac monitoring - Patient was noted to be in sinus rhythm with rate of 115 EKG: Rate: 105 Rhythm: Sinus tachycardia Intervals: Within normal limits ST changes: No ST elevation Time: 0104 CTA CHEST: Small right pleural effusion. Trace left effusion. Mild atelectatic changes. Prominence of the interstitium and pulmonary vessels. No evidence of pneumothorax. The mediastinum is intact. The heart is large in size. Moderate atherosclerosis. Retroesophageal right subclavian artery. No evidence of dissection. No PE. DJD. Upper abdomen intact. Impression: No PE. Fluid overload versus CHF. Radiologist: Adelfo Hobson M.D. Medical Decision Making: The patient is a 81-year-old gentleman with history of restrictive lung disease, coronary artery disease, history of adenocarcinoma of the left lung status post lobectomy, he is noted to be DNR/DNI CODE STATUS according to his at the bedside, patient presents emergency department with hypoxia and respiratory distress in the field. Admitted to subjective fevers over the past several days, COVID-19 testing was obtained and is positive. With the patient's tachycardia and hypoxia, CT imaging of the chest with angiography was obtained that does not show any evidence of pulmonary embolism, does show evidence of apparent fluid overload versus CHF. Patient was given a dose of labetalol as he was hypertensive here in the ED, he unfortunately did decompensate following CT imaging and had tachycardia into the 130s and oxygen dipped down into the mid 80s which did improve to the low 90s with nonrebreather mask. Patient was placed on BiPAP shortly after this given concern for fluid overload/CHF. He was given Decadron for COVID-19 infection. Patient did improve on BiPAP but still exhibited some moderate increased work of breathing, tachycardia came down into the low 100s, repeat EKG shows some ST depression in the lateral leads but this does appear similar morphology to previous EKGs. High-sensitivity troponin is elevated at 90. I discussed the patient's critical condition with his , Sara, on the phone as she did leave the emergency department at some point during his stay. She is clear that the patient is DNR/DNI, okay for interventions to the point where he would require intubation. He will therefore remain on BiPAP as he has had some improvement in his work of breathing with this. He is in guarded condition. I discussed case with the on-call hospitalist, Dr. Gomez, and the patient will be admitted to the hospitalist service for further management of COVID-19 infection and acute respiratory failure with hypoxia. CODE STATUS: DNR/DNI * CRITICAL CARE TIME: 50 min -Stabilization of hypoxia with oxygen saturations less than 90% on room air requiring noninvasive positive pressure ventilation, time spent at the bedside, interpretation of diagnostic studies and EKG, discussion with family regarding CODE STATUS, arrangement of admission Diagnosis: 1. Acute hypoxic respiratory failure 2. COVID-19 infection 3. Elevated high-sensitivity troponin level 4. Chronic kidney disease Disposition: Admission Nick Schwarz DO Emergency Medicine Past Med/Surg History Medical History Abnormal stress echo Anemia CAD (coronary artery disease) Cholelithiasis CKD (chronic kidney disease) Diabetes Diabetes mellitus, type 2 Dyspnea on exertion Gastro-esophageal reflux GERD (gastroesophageal reflux disease) Hearing deficit Hiatal hernia High cholesterol Hyperlipidemia Hypertension Hypertension Impacted cerumen of left ear Lip ulcer Lung cancer Lung mass Lung mass Malaise and fatigue Mass of cecum Mass of upper lobe of left lung Mixed restrictive and obstructive lung disease Moderate aortic stenosis Obesity Primary adenocarcinoma of upper lobe of left lung Pulmonary edema Skin cancer 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 Thoracoscopic surgical procedure converted to open procedure Valvular disease Surgical History History of cardiac cath History of cholecystectomy History of colonoscopy History of lobectomy of lung S/P lobectomy of lung Family History Father Cardiac disorder Other No family history of bleeding disorder Social History Smoking Status: Former smoker Tobacco Type: Cigarettes and Smokeless Tobacco (Dip or Chew) Second Hand Exposure: No; Hx Alcohol Use: No Hx Substance Use: No Preferred Language: Turkmen Communication Ability: Effective Visual Impairment: No Limitations 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 Beliefs That Will Affect Care: None marital status: Current Living Situation: Spouse Feels Safe at Home: Yes Assistive Devices: Denture - Upper, Glasses, Hearing Aid - Left, Hearing Aid - Right and Walker Allergies Allergies Allergy/AdvReac Type Severity Reaction Status Date / Time sulfamethoxazole Allergy Hives Verified 02/08/22 00:19 [From Bactrim] trimethoprim [From Bactrim] Allergy Hives Verified 02/08/22 00:19 Home Meds Home Medications Medication Instructions Recorded Confirmed aspirin 81 mg tablet,delayed 81 mg PO BID 04/25/18 02/08/22 release coenzyme Q10 100 mg capsule 200 mg PO QAM 04/25/18 02/08/22 (CoQ-10) metoprolol tartrate 50 mg tablet 50 mg PO BID 04/25/18 02/08/22 multivitamin 1 tab PO QAM 04/25/18 02/08/22 omeprazole magnesium 20 mg 20 mg PO QAM 04/25/18 02/08/22 tablet,delayed release (Prilosec OTC) simvastatin 20 mg tablet 20 mg PO HS 04/25/18 02/08/22 triamterene 37.5 1 tab PO QAM 04/25/18 02/08/22 mg-hydrochlorothiazide 25 mg tablet guaifenesin 1,200 mg tablet, 1,200 mg PO BID 04/27/19 02/08/22 extended release 12 hr (Mucinex) ferrous sulfate 324 mg (65 mg 324 mg PO DAILY 07/17/19 02/08/22 iron) tablet,delayed release insulin lispro protamine-lispro 60 unit subcut QPM 03/20/20 02/08/22 100 unit/mL (75-25) subcutaneous susp (Humalog Mix 75-25(U-100)Insuln) insulin lispro protamine-lispro 95 unit subcut QAM 03/20/20 02/08/22 100 unit/mL (75-25) subcutaneous susp (Humalog Mix 75-25(U-100)Insuln) dulaglutide 0.75 mg/0.5 mL 0.75 mg subcut .weekly 11/08/20 02/08/22 subcutaneous pen injector (Trulicity) astragalus root 470 mg capsule 470 mg PO DAILY 11/08/21 02/08/22 isosorbide mononitrate 60 mg 60 mg PO DAILY 11/08/21 02/08/22 tablet,extended release 24 hr furosemide 40 mg tablet 40 mg PO Q OTHER DAY 01/14/22 02/08/22 potassium chloride 10 mEq 20 meq PO .COMPLEX 01/14/22 02/08/22 capsule,extended release Previous Rx's Medication Instructions Recorded CPAP Machine #1 ea 07/17/19 CPAP Supplies #1 ea 05/23/20 nebulizers (Aeroneb Go Nebulizer) #1 ea 05/23/20 Flutter Valve #1 ea 05/24/20 ipratropium 0.5 mg-albuterol 3 mg 3 ml inhalation Q8H PRN shortness 11/25/20 (2.5 mg base)/3 mL nebulization of breath or wheezing #270 mL soln fluticasone propionate 50 1 spray intranasal DAILY #9.9 grams 03/24/21 mcg/actuation nasal spray,suspension (Allergy Relief (fluticasone)) umeclidinium 62.5 mcg-vilanterol 1 inh inhalation DAILY #60 ea 11/13/21 25 mcg/actuation powdr for inhalation (Anoro Ellipta) gabapentin 100 mg capsule 100 mg PO BID #30 caps 11/20/21 Results & Data (ED) Vital Signs Vital Signs - 24 hr 02/07/22 23:22 02/07/22 23:14 02/07/22 23:33 Temperature 37.6 C H Temperature Source Oral Pulse Rate 113 H 108 H Pulse Rate from SpO2 Sensor 108 H Respiratory Rate 26 H 26 H Respiratory Effort / Characteristics Short of Breath Short of Breath Respiratory Depth Normal Normal Respiratory Pattern Regular Blood Pressure 126/69 Blood Pressure Mean 88 Pulse Oximetry 96 98 Oxygen Delivery Method Nasal Cannula Nasal Cannula Oxygen Flow Rate 4 4 Fraction of Inspired Oxygen Sepsis Recent Fever Within 48 Hours Yes Sepsis New/Unexplained Change in Mental Status No Sepsis Action Taken by Nursing Physician Notified 02/07/22 23:45 02/08/22 00:00 02/08/22 00:15 Temperature Temperature Source Pulse Rate 107 H 106 H 108 H Pulse Rate from SpO2 Sensor 107 H 106 H 109 H Respiratory Rate 26 H 26 H 28 H Respiratory Effort / Characteristics Respiratory Depth Respiratory Pattern Blood Pressure Blood Pressure Mean Pulse Oximetry 99 98 97 Oxygen Delivery Method Oxygen Flow Rate Fraction of Inspired Oxygen Sepsis Recent Fever Within 48 Hours Sepsis New/Unexplained Change in Mental Status Sepsis Action Taken by Nursing 02/08/22 00:17 02/08/22 00:17 02/08/22 00:30 Temperature Temperature Source Pulse Rate 107 H 106 H Pulse Rate from SpO2 Sensor 107 H 105 H Respiratory Rate 22 26 H Respiratory Effort / Characteristics Respiratory Depth Respiratory Pattern Blood Pressure 159/87 H 161/81 H Blood Pressure Mean 111 107 Pulse Oximetry 97 96 Oxygen Delivery Method Oxygen Flow Rate Fraction of Inspired Oxygen Sepsis Recent Fever Within 48 Hours Sepsis New/Unexplained Change in Mental Status Sepsis Action Taken by Nursing 02/08/22 00:45 02/08/22 01:00 02/07/22 23:38 Temperature Temperature Source Pulse Rate 107 H 105 H 137 H Pulse Rate from SpO2 Sensor 108 H 104 H Respiratory Rate 26 H 23 36 H Respiratory Effort / Characteristics Spontaneous Accessory Muscle Use Short of Breath SOB on Exertion Respiratory Depth Deep Respiratory Pattern Tachypnea Blood Pressure 163/78 H 174/81 H Blood Pressure Mean 106 112 Pulse Oximetry 97 98 98 Oxygen Delivery Method Oxygen Flow Rate Fraction of Inspired Oxygen 100 Sepsis Recent Fever Within 48 Hours Sepsis New/Unexplained Change in Mental Status Sepsis Action Taken by Nursing 02/08/22 01:15 02/08/22 01:51 02/08/22 01:52 Temperature Temperature Source Pulse Rate 102 H Pulse Rate from SpO2 Sensor 99 H 118 H 116 H Respiratory Rate 25 H Respiratory Effort / Characteristics Respiratory Depth Respiratory Pattern Blood Pressure 157/72 H 155/105 H Blood Pressure Mean 100 121 Pulse Oximetry 99 95 97 Oxygen Delivery Method Oxygen Flow Rate Fraction of Inspired Oxygen Sepsis Recent Fever Within 48 Hours Sepsis New/Unexplained Change in Mental Status Sepsis Action Taken by Nursing 02/08/22 02:00 02/08/22 02:01 02/08/22 02:15 Temperature Temperature Source Pulse Rate 121 H 122 H 135 H Pulse Rate from SpO2 Sensor 117 H 123 H 123 H Respiratory Rate 28 H 26 H 31 H Respiratory Effort / Characteristics Respiratory Depth Respiratory Pattern Blood Pressure 171/94 H Blood Pressure Mean 119 Pulse Oximetry 94 94 95 Oxygen Delivery Method Oxygen Flow Rate Fraction of Inspired Oxygen Sepsis Recent Fever Within 48 Hours Sepsis New/Unexplained Change in Mental Status Sepsis Action Taken by Nursing 02/08/22 02:16 02/08/22 02:30 02/08/22 02:46 Temperature Temperature Source Pulse Rate 136 H 138 H 140 H Pulse Rate from SpO2 Sensor 145 H 140 H 138 H Respiratory Rate 30 H 35 H 37 H Respiratory Effort / Characteristics Respiratory Depth Respiratory Pattern Blood Pressure 193/152 H 197/147 H 186/127 H Blood Pressure Mean 165 163 146 Pulse Oximetry 94 100 100 Oxygen Delivery Method Oxygen Flow Rate Fraction of Inspired Oxygen Sepsis Recent Fever Within 48 Hours Sepsis New/Unexplained Change in Mental Status Sepsis Action Taken by Nursing 02/08/22 02:53 02/08/22 02:55 Temperature Temperature Source Pulse Rate 103 H 101 H Pulse Rate from SpO2 Sensor 98 H 97 H Respiratory Rate 35 H 35 H Respiratory Effort / Characteristics Respiratory Depth Respiratory Pattern Blood Pressure 136/72 131/80 Blood Pressure Mean 93 97 Pulse Oximetry 100 100 Oxygen Delivery Method Oxygen Flow Rate Fraction of Inspired Oxygen Sepsis Recent Fever Within 48 Hours Sepsis New/Unexplained Change in Mental Status Sepsis Action Taken by Nursing Laboratory Data Result diagrams: 02/07/22 22:30 02/07/22 22:30 Lab Results 02/07/22 02/07/22 02/07/22 Range/Units 22:30 22:30 22:30 WBC 9.76 (4.8-10.8) K/ul RBC 3.67 L (4.63-6.08) M/uL Hgb 10.5 L (14.0-18.0) g/dl Hct 33.2 L (40.1-51.0) % MCV 90.5 (80.0-100.0) fL MCH 28.6 (25.0-34.0) pg MCHC 31.6 L (32.0-36.0) g/dL RDW Std Deviation 47.8 H (36.4-46.3) fL RDW Coeff of Mac 14.5 (11.5-14.5) % Plt Count 333 (130-400) K/uL MPV 10.3 (9.4-12.4) fL Immature Gran % (Auto) 0.4 % Neut % (Auto) 87.0 % Lymph % (Auto) 3.9 % [place] % (Auto) 7.5 % Eos % (Auto) 0.7 % Baso % (Auto) 0.5 % Neut # (Auto) 8.49 H (1.4-6.5) K/uL Lymph # (Auto) 0.38 L (1.2-3.4) K/uL [place] # (Auto) 0.73 (0.24-0.82) K/uL Eos # (Auto) 0.07 (0-0.50) K/uL Baso # (Auto) 0.05 (0-0.2) K/uL Immature Gran # (Auto) 0.04 H (0.00-0.02) K/uL PT Cancelled INR Cancelled APTT Cancelled PTT Ratio Cancelled Sodium 137 (136-145) mmol/L Potassium 3.9 (3.5-5.1) mmol/L Chloride 103 (98-107) mmol/L Carbon Dioxide 24 (21-32) mmol/L Anion Gap 10 (3-11) BUN 27 H (6-23) mg/dl Creatinine 1.65 H (0.6-1.4) mg/dl Est Cr Clr Drug Dosing 41.9 ml/min Est GFR ( Amer) 45.1 ml/min Est GFR (Non-Af Amer) 38.9 ml/min BUN/Creatinine Ratio 16.4 (10-20) Glucose 176 H (70-99(Fasting)) mg/dl Lactate (0.4-2.0) mmol/L Calcium 9.0 (8.5-10.1) mg/dl Magnesium 1.9 (1.7-2.4) mg/dl Total Bilirubin 1.0 (0.2-1.0) mg/dl AST 17 (13-39) U/L ALT 17 (7-52) U/L Alkaline Phosphatase 56 (34-104) U/L Troponin I High Sens 92.9 H* (0-20) pg/ml C-Reactive Protein (0-0.5) mg/dl B-Natriuretic Peptide (0-100) pg/ml Total Protein 7.4 (6.0-8.3) gm/dl Albumin 4.1 (3.4-5.0) gm/dl Globulin 3.3 (2.5-4.0) gm/dl Albumin/Globulin Ratio 1.2 (0.9-2) Procalcitonin (0-0.5) ng/ml SARS-CoV-2 (PCR) (Negative) 02/07/22 02/08/22 02/08/22 Range/Units 22:30 00:11 00:13 WBC (4.8-10.8) K/ul RBC (4.63-6.08) M/uL Hgb (14.0-18.0) g/dl Hct (40.1-51.0) % MCV (80.0-100.0) fL MCH (25.0-34.0) pg MCHC (32.0-36.0) g/dL RDW Std Deviation (36.4-46.3) fL RDW Coeff of Mac (11.5-14.5) % Plt Count (130-400) K/uL MPV (9.4-12.4) fL Immature Gran % (Auto) % Neut % (Auto) % Lymph % (Auto) % [place] % (Auto) % Eos % (Auto) % Baso % (Auto) % Neut # (Auto) (1.4-6.5) K/uL Lymph # (Auto) (1.2-3.4) K/uL [place] # (Auto) (0.24-0.82) K/uL Eos # (Auto) (0-0.50) K/uL Baso # (Auto) (0-0.2) K/uL Immature Gran # (Auto) (0.00-0.02) K/uL PT 11.1 INR 1.0 APTT 28.9 PTT Ratio 1.1 Sodium (136-145) mmol/L Potassium (3.5-5.1) mmol/L Chloride (98-107) mmol/L Carbon Dioxide (21-32) mmol/L Anion Gap (3-11) BUN (6-23) mg/dl Creatinine (0.6-1.4) mg/dl Est Cr Clr Drug Dosing ml/min Est GFR ( Amer) ml/min Est GFR (Non-Af Amer) ml/min BUN/Creatinine Ratio (10-20) Glucose (70-99(Fasting)) mg/dl Lactate 0.9 (0.4-2.0) mmol/L Calcium (8.5-10.1) mg/dl Magnesium (1.7-2.4) mg/dl Total Bilirubin (0.2-1.0) mg/dl AST (13-39) U/L ALT (7-52) U/L Alkaline Phosphatase (34-104) U/L Troponin I High Sens (0-20) pg/ml C-Reactive Protein (0-0.5) mg/dl B-Natriuretic Peptide (0-100) pg/ml Total Protein (6.0-8.3) gm/dl Albumin (3.4-5.0) gm/dl Globulin (2.5-4.0) gm/dl Albumin/Globulin Ratio (0.9-2) Procalcitonin < 0.05 (0-0.5) ng/ml SARS-CoV-2 (PCR) (Negative) 02/08/22 02/08/22 02/08/22 Range/Units 00:18 00:18 Unknown WBC (4.8-10.8) K/ul RBC (4.63-6.08) M/uL Hgb (14.0-18.0) g/dl Hct (40.1-51.0) % MCV (80.0-100.0) fL MCH (25.0-34.0) pg MCHC (32.0-36.0) g/dL RDW Std Deviation (36.4-46.3) fL RDW Coeff of Mac (11.5-14.5) % Plt Count (130-400) K/uL MPV (9.4-12.4) fL Immature Gran % (Auto) % Neut % (Auto) % Lymph % (Auto) % [place] % (Auto) % Eos % (Auto) % Baso % (Auto) % Neut # (Auto) (1.4-6.5) K/uL Lymph # (Auto) (1.2-3.4) K/uL [place] # (Auto) (0.24-0.82) K/uL Eos # (Auto) (0-0.50) K/uL Baso # (Auto) (0-0.2) K/uL Immature Gran # (Auto) (0.00-0.02) K/uL PT INR APTT PTT Ratio Sodium (136-145) mmol/L Potassium (3.5-5.1) mmol/L Chloride (98-107) mmol/L Carbon Dioxide (21-32) mmol/L Anion Gap (3-11) BUN (6-23) mg/dl Creatinine (0.6-1.4) mg/dl Est Cr Clr Drug Dosing ml/min Est GFR ( Amer) ml/min Est GFR (Non-Af Amer) ml/min BUN/Creatinine Ratio (10-20) Glucose (70-99(Fasting)) mg/dl Lactate (0.4-2.0) mmol/L Calcium (8.5-10.1) mg/dl Magnesium (1.7-2.4) mg/dl Total Bilirubin (0.2-1.0) mg/dl AST (13-39) U/L ALT (7-52) U/L Alkaline Phosphatase (34-104) U/L Troponin I High Sens (0-20) pg/ml C-Reactive Protein 5.09 H (0-0.5) mg/dl B-Natriuretic Peptide 670 H (0-100) pg/ml Total Protein (6.0-8.3) gm/dl Albumin (3.4-5.0) gm/dl Globulin (2.5-4.0) gm/dl Albumin/Globulin Ratio (0.9-2) Procalcitonin (0-0.5) ng/ml SARS-CoV-2 (PCR) POSITIVE A* (Negative) Administered Medications Discontinued Medications Dexamethasone 8 mg/ Syringe 2 mls @ 1 mls/min IV ONE ONE Stop: 02/08/22 01:48 Last Admin: 02/08/22 02:16 Dose: 1 mls/min Documented By: IRVIN Lorazepam 1 mg/ Syringe 1 mls @ 2 mls/min IV TODAY@0238 SHANTANU Stop: 02/08/22 03:00 Last Admin: 02/08/22 03:14 Dose: 2 mls/min Documented By: IRVIN Ioversol (Optiray 320 125ml) 120 ml IV ONCE ONE Stop: 02/08/22 01:53 Last Admin: 02/08/22 01:52 Dose: 120 ml Documented By: CASTILLO Labetalol HCl (Labetalol Hcl Iv 5 Mg/Ml 20ml) 15 mg IV NOW STA Stop: 02/08/22 02:38 Last Admin: 02/08/22 02:44 Dose: 15 mg Documented By: IRVIN Co-signed By: BEVERLY Discharge Plan Visit Data Chief Complaint: Respiratory Problems Stated Complaint: SHORT OF BREATH/CHEST PAIN ED Provider: Nick Schwarz Discharge Problem: COVID-19 Patient Disposition: Admitted As Inpatient Forms Stand Alone Forms: [facility] Prescriptions Prescriptions: No Action (DME) Flutter Valve Device See Rx Instructions .MEDSUPPLY Qty: 1 0RF Rx Instructions: Use it every 6 hours when awake. fluticasone propionate [Allergy Relief (fluticasone)] 50 mcg/actuation spray,suspension 1 spray intranasal DAILY Qty: 9.9 3RF Rx Instructions: administer into each nostril once daily Anoro Ellipta 62.5-25 mcg/actuation blister with device 1 inh inhalation DAILY Qty: 60 3RF guaifenesin [Mucinex] 1,200 mg tablet extended release 12hr 1,200 mg PO BID ferrous sulfate 324 mg (65 mg iron) tablet,delayed release (DR/EC) 324 mg PO DAILY (DME) CPAP Machine Misc See Rx Instructions .ROUTE .MEDSUPPLY Qty: 1 0RF Rx Instructions: AUTO CPAP MIN 6 MAX 16. HEATED HUMIDITY. FULL FACE MASK OF CHOICE. CPAP SUPPLIES. MICHAEL 99. CARE PLUS O2 (DME) Aeroneb Go Nebulizer Misc See Rx Instructions .MEDSUPPLY Qty: 1 0RF Rx Instructions: With tubing and supplies. J44.9. J45.9. (DME) CPAP Supplies Misc See Rx Instructions .MEDSUPPLY Qty: 1 0RF Rx Instructions: Mask refitting. G47.33 Trulicity 0.75 mg/0.5 mL pen injector 0.75 mg subcut .weekly Rx Instructions: TAKE THIS MED EVERY WEDNESDAY ipratropium-albuterol 0.5 mg-3 mg(2.5 mg base)/3 mL solution for nebulization 3 ml inhalation Q8H PRN (Reason: shortness of breath or wheezing) Qty: 270 3RF furosemide 40 mg tablet 40 mg PO Q OTHER DAY potassium chloride 10 mEq capsule, extended release 20 meq PO .COMPLEX Rx Instructions: 20 mEq PO Every other day; multivitamin Tablet 1 tab PO QAM aspirin 81 mg Tablet,Delayed Release (Dr/Ec) 81 mg PO BID simvastatin 20 mg Tablet 20 mg PO HS metoprolol tartrate 50 mg Tablet 50 mg PO BID triamterene-hydrochlorothiazid 37.5-25 mg Tablet 1 tab PO QAM coenzyme Q10 [CoQ-10] 100 mg Capsule 200 mg PO QAM omeprazole magnesium [Prilosec OTC] 20 mg Tablet,Delayed Release (Dr/Ec) 20 mg PO QAM Humalog Mix 75-25(U-100)Insuln 100 unit/mL (75-25) suspension 95 unit SUBCUT QAM Humalog Mix 75-25(U-100)Insuln 100 unit/mL (75-25) suspension 60 unit SUBCUT QPM isosorbide mononitrate 60 mg tablet extended release 24 hr 60 mg PO DAILY astragalus root 470 mg Capsule 470 mg PO DAILY gabapentin 100 mg Capsule 100 mg PO BID Qty: 30 0RF Referrals Referrals: PCP,NO [Primary Care Provider] -
[2022-02-07 23:55] LABS: Albumin Globulin Ratio 1.2 (0.9-2); Albumin Level 4.1 gm/dl (3.4-5.0); BUN Creatinine Ratio 16.4 (10-20); Creatinine Clr Calc Pharmacy 41.9 ml/min; Est GFR (African American) 45.1 ml/min; Est GFR (Non-African American) 38.9 ml/min; Globulin 3.3 gm/dl (2.5-4.0); Magnesium 1.9 mg/dl (1.7-2.4); Potassium 3.9 mmol/L (3.5-5.1); Total Protein 7.4 gm/dl (6.0-8.3)
[2022-02-08 00:05] LABS: Troponin I High Sensitivity 92.9 pg/ml (0-20)
[2022-02-08 00:55] LABS: Partial Thromboplastin Ratio 1.1; Partial Thromboplastin Time 28.9 Seconds (21.0-31.0); Prothrombin Time 11.1 Seconds (9.0-12.0)
[2022-02-08] MEDS ORDERED: dexAMETHasone 8 MG in SYRINGE 0 ML IV ONE (01:47)
[2022-02-08] MEDS ORDERED: OPTIRAY 320 125ml IV ONE (01:52)
[2022-02-08] MEDS ORDERED: DEXAMETHASONE SOD INJ 4 MG/ML VIAL ONE (02:12)
[2022-02-08] MEDS ORDERED: LABETALOL HCL IV 5 MG/ML 20ML IV STA (02:37)
[2022-02-08] MEDS ORDERED: LORazepam 1 MG in SYRINGE 0.5 ML IV SCH (02:38)
[2022-02-08] MEDS ORDERED: LORazepam 2 MG/1 ML VIAL IV STA ×2 (02:38→02:40)
[2022-02-08] MEDS ORDERED: FUROSEMIDE 40 MG/4 ML VIAL IV STA (03:01)
--- NOTE | 2022-02-08 03:09 | History & Physical Report ---
Date of Service February 08, 2022 Assessment & Plan (1) Acute respiratory failure with hypoxia: Plan: No home oxygen requirements, but quickly decompensated here and now requiring continuous BiPAP, and remains with significant increased work of breathing. Likely due to pulmonary edema in context of severe aortic stenosis history, as well as COVID-19 with ?pneumonia (difficulty to ascertain due to comorbid pulmonary edema). - CXR suggestive of pulmonary vascular congestion and CTA chest confirming this, along with trace L pleural effusion. BNP 670. - COVID-19 positive, CRP mildly elevated at 5.09 - last TTE in 10/2021 with good EF and severe - repeat now - will give Lasix 20mg IV now - note: patient with severe is preload-dependent - avoid aggressive diuresis - ABG with pH 7.23, pCO2 68.4 and HCO3 28.9 - severe respiratory acidosis/failure despite BiPAP - appreciate RT assistance - will increase IPAP - check ABG later this morning - patient has significant respiratory failure despite BiPAP - prognosis is guarded; patient's family made it clear with our ED provider that patient would not want intubation in any circumstance. Would consider further conversations with family regarding transition to comfort measures - defer to primary team (2) COVID-19: Plan: Worsening symptoms x5 days. COVID-19 positive, CRP mildly elevated at 5.09. Likely contributing to respiratory failure, as stated above. - s/p Decadron 8mg IV in ED - continue with Decadron 12mg IV daily x10 days - note: higher dosing of Decadron showed improved respiratory benefit in patients requiring significant supplemental O2 support (STEROID 2 trial) - start Remdesivir x5 days - continue BiPAP as stated above - continue home Mucinex 1.2g PO BID - flutter valve Q6H - scheduled Duonebs Q6H + PRN Q2H - trend CBC and CRP daily (3) Elevated troponin: Plan: hsTroponin 92.9 (22:30) --> 160 (00:18). Patient had reported pleuritic chest pain, and EKG showing LVH with repolarization abnormality although no regional ST depressions or T-wave inversions. Suspect demand ischemia in context of respiratory failure/tachycardia. - will start heparin gtt low-dose with bolus, given chest pain and questionable EKG - trend Troponin Q6H to peak (4) Severe aortic stenosis: Plan: Per TTE in 10/2021. Patient had refused consultation for TAVR in the past. This is likely contributing to pulmonary edema and respiratory failure as well. - check TTE as stated above - careful diuresis as stated above - continue home Lasix 40mg PO QOD (starting tomorrow AM, as just gave an IV dose) (5) Pulmonary hypertension: Plan: Per TTE, likely due to significant pulmonary disease and . 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 Restrictive disease due to lung cancer and left upper lobectomy in 2018. 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 - maintain continuous BiPAP for now - continue home Anoro Ellipta or hospital equivalent - Duonebs as stated above (7) Diabetes: Plan: A1c 8.1 on 11/09/2021. Repeat A1c in AM. SSI and bolus insulin while hospitalized. - started with Lantus 80 units BID - pharmacy glycemic consult appreciated, as patient is being started on high- dose steroids for COVID-19 (8) CKD (chronic kidney disease): Plan: Baseline Cr 1.6 - 1.8. Cr 1.65 here. - avoid nephrotoxic agents (note: eGFR >30 and thus patient remains candidate for Remdesivir) - trend BMP daily (9) CAD (coronary artery disease): Plan: Continue home baby Aspirin and Imdur. (10) Anemia: Plan: Hgb 10.5 here, baseline 12-13. Normocytic. Suspect progressive anemia due to CKD. No signs of active bleeding. - continue home ferrous sulfate daily - trend daily (11) Hypertension: Plan: Continue home Lopressor. Hold home triamterene-HCTZ due to CKD as well as likely need for increased diuretic regimen. (12) Dyslipidemia: Plan: Continue home Simvastatin (13) Pulmonary nodule: Plan: Per PET/CT in 04/2021 - 2.3 cm irregular opacity within the anterior basal segment of the left lower lobe. This is similar to chest CT of March 26, 2021 and slightly increased since CT of February 24, 2019. - follows with Dr. Tolliver - had planned for repeat CT scan in 6 months - f/u on final read of CTA chest (done today) which will help delineate progression of this nodule (14) GERD (gastroesophageal reflux disease): Plan: Protonix per hospital formulary Plan FEN/GI: NPO except sips/meds DVT Prophylaxis: Code Status: DNR/DNI, no intubation under any circumstances (per discussion with patient's family) Disposition: PCU History of Present Illness Chief Complaint: shortness of breath Primary Care Provider: NO PCP Juancho Bronson is a 81yo male with PMHx significant for h/o lung cancer (s/p left upper lobectomy in 2018, no chemo or RTx), restrictive lung disease (due to resection), VADIM (non-compliant with CPAP), pulmonary HTN, severe aortic stenosis (previously deferred referral for TAVR), T2DM (A1c 8.1 in 10/2021), and CKD (Cr 1.6-1.8), who presented to [facility] ED on 02/08 for subjective fever/chills, worsening cough, shortness of breath and pleuritic chest pain x5 days. In the ED the patient was hypoxic to mid 80s and improved to high 90s on 4L/min NC. Was also tachycardic up to 130s, hypertensive to 193/147, tachypneic to 37, and borderline febrile at 37.6C. Labs significant for WBC 9.76 with lymphopenia (0.38) and mild L shift. Hgb 10.5 (baseline 12-13, normocytic). Cr 1.65 (~baseline). Lactate 0.9. CRP 5.09. EKG showing LVH with repolarization abnormality but no ST/T abnormalities. hsTroponin 92.9. COVID-19 positive. CXR suggestive of pulmonary vascular congestion and CTA chest confirming this, along with trace L pleural effusion. BNP 670. Of note the patient became more tachycardic and tachypneic while lying supine for the CTA, and subsequently required initiation of BiPAP. Patient was given Decadron 8mg IV x1 as well as Labetalol 15mg IV x1. Allergies Allergy/AdvReac Type Severity Reaction Status Date / Time sulfamethoxazole Allergy Hives Verified 02/08/22 00:19 [From Bactrim] trimethoprim [From Bactrim] Allergy Hives Verified 02/08/22 00:19 Home Medications Medication Instructions Recorded Confirmed Type aspirin 81 mg tablet,delayed 81 mg PO BID 04/25/18 02/08/22 History release coenzyme Q10 100 mg capsule 200 mg PO QAM 04/25/18 02/08/22 History (CoQ-10) metoprolol tartrate 50 mg tablet 50 mg PO BID 04/25/18 02/08/22 History multivitamin 1 tab PO QAM 04/25/18 02/08/22 History omeprazole magnesium 20 mg 20 mg PO QAM 04/25/18 02/08/22 History tablet,delayed release (Prilosec OTC) simvastatin 20 mg tablet 20 mg PO HS 04/25/18 02/08/22 History triamterene 37.5 1 tab PO QAM 04/25/18 02/08/22 History mg-hydrochlorothiazide 25 mg tablet guaifenesin 1,200 mg tablet, 1,200 mg PO BID 04/27/19 02/08/22 History extended release 12 hr (Mucinex) CPAP Machine #1 ea 07/17/19 02/08/22 Rx ferrous sulfate 324 mg (65 mg 324 mg PO DAILY 07/17/19 02/08/22 History iron) tablet,delayed release insulin lispro protamine-lispro 60 unit subcut QPM 03/20/20 02/08/22 History 100 unit/mL (75-25) subcutaneous susp (Humalog Mix 75-25(U-100)Insuln) insulin lispro protamine-lispro 95 unit subcut QAM 03/20/20 02/08/22 History 100 unit/mL (75-25) subcutaneous susp (Humalog Mix 75-25(U-100)Insuln) CPAP Supplies #1 ea 05/23/20 02/08/22 Rx nebulizers (Aeroneb Go Nebulizer) #1 ea 05/23/20 02/08/22 Rx Flutter Valve #1 ea 05/24/20 02/08/22 Rx dulaglutide 0.75 mg/0.5 mL 0.75 mg subcut .weekly 11/08/20 02/08/22 History subcutaneous [facility] ipratropium 0.5 mg-albuterol 3 mg 3 ml inhalation Q8H PRN shortness 11/25/20 02/08/22 Rx (2.5 mg base)/3 mL nebulization of breath or wheezing #270 mL soln fluticasone propionate 50 1 spray intranasal DAILY #9.9 grams 03/24/21 02/08/22 Rx mcg/actuation nasal spray,suspension (Allergy Relief (fluticasone)) astragalus root 470 mg capsule 470 mg PO DAILY 11/08/21 02/08/22 History isosorbide mononitrate 60 mg 60 mg PO DAILY 11/08/21 02/08/22 History tablet,extended release 24 hr umeclidinium 62.5 mcg-vilanterol 1 inh inhalation DAILY #60 ea 11/13/21 02/08/22 Rx 25 mcg/actuation powdr for inhalation (Anoro Ellipta) gabapentin 100 mg capsule 100 mg PO BID #30 caps 11/20/21 02/08/22 Rx furosemide 40 mg tablet 40 mg PO Q OTHER DAY 01/14/22 02/08/22 History potassium chloride 10 mEq 20 meq PO .COMPLEX 01/14/22 02/08/22 History capsule,extended release Past Med/Surg History Medical History Abnormal stress echo Anemia CAD (coronary artery disease) Cholelithiasis CKD (chronic kidney disease) Diabetes Diabetes mellitus, type 2 Dyspnea on exertion Gastro-esophageal reflux GERD (gastroesophageal reflux disease) Hearing deficit Hiatal hernia High cholesterol Hyperlipidemia Hypertension Hypertension Impacted cerumen of left ear Lip ulcer Lung cancer Lung mass Lung mass Malaise and fatigue Mass of cecum Mass of upper lobe of left lung Mixed restrictive and obstructive lung disease Moderate aortic stenosis Obesity Primary adenocarcinoma of upper lobe of left lung Pulmonary edema Skin cancer 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 Thoracoscopic surgical procedure converted to open procedure Valvular disease Surgical History History of cardiac cath History of cholecystectomy History of colonoscopy History of lobectomy of lung S/P lobectomy of lung Family History Father Cardiac disorder Other No family history of bleeding disorder Social History Smoking Status: Never smoker Tobacco Type: Cigarettes and Smokeless Tobacco (Dip or Chew) Second Hand Exposure: No; Hx Alcohol Use: No Hx Substance Use: No Preferred Language: Omani Communication Ability: Effective Visual Impairment: No Limitations Wafer Slicer Required: No Beliefs That Will Affect Care: None marital status: Current Living Situation: Spouse Other Information That Helps Us Care for You: No Feels Safe at Home: Yes Safety Concerns: Feels Safe At This Time Assistive Devices: Cane, Denture - Upper, Glasses, Hearing Aid - Bilateral and Walker Review of Systems Review of Systems: All systems reviewed & are unremarkable except as noted in HPI & below Physical Exam Physical Exam: General: Significant respiratory distress. Unable to speak more than several words at a time due to tachypnea. Obese. BiPAP in place. HEENT: Atraumatic, normocephalic. BiPAP in place Pulm: Decreased aeration, with expiratory crackles present throughout. Symmetrical chest rise. Significantly increased work of breathing. +respiratory distress. Cardiac: tachycardic rate, regular rhythm, -mrg. Radial pulses intact and symmetrical. 1+ pitting LE edema to shins bilaterally. No JVD. Abdominal: soft, non-tender, non-distended, BS x 4 Skin: warm, dry, no rash Results & Data Results & Data ([facility]) Vital Signs (Past 12 Hours) Vital Signs Temp Pulse Resp BP Pulse Ox O2 Del Method O2 Flow Rate 02/07/22 23:38 137 H 36 H 98 02/08/22 01:00 105 H 23 174/81 H 98 02/08/22 00:45 107 H 26 H 163/78 H 97 02/08/22 00:30 106 H 26 H 161/81 H 96 02/08/22 00:17 107 H 22 97 02/08/22 00:17 159/87 H 02/08/22 00:15 108 H 28 H 97 02/08/22 00:00 106 H 26 H 98 02/07/22 23:45 107 H 26 H 99 02/07/22 23:33 108 H 26 H 98 02/07/22 23:14 Nasal Cannula 4 02/07/22 23:22 37.6 C H 113 H 26 H 126/69 96 Nasal Cannula 4 FiO2 02/07/22 23:38 100 02/08/22 01:00 02/08/22 00:45 02/08/22 00:30 02/08/22 00:17 02/08/22 00:17 02/08/22 00:15 02/08/22 00:00 02/07/22 23:45 02/07/22 23:33 02/07/22 23:14 02/07/22 23:22 Supervising Physician Co-Signing Physician Notes Patient seen and examined, chart reviewed, case discussed with Dr. Solorio and I agree with the assessment and plan as above. In brief, Mr. Bronson is a 81yo male with history of lung adenocarcinoma s/p left upper lobectomy, severe , mixed restrictive and obstructive lung disease presents with several days of progressive SOB and chest discomfort. Patient 86% on RA by EMS - was placed on NC with improvement. Patient clinically decompensated after returning from CT scan requiring placement of rescue BiPAP. Patient tachypneic, in visible distress. Saturations adequate on BiPAP. Patient with poor TV initially On exam he is afebrile, BP stable, tachycardic to 140's, now 111. Ill in appearance in moderate respiratory distress with BiPAP in place Hard of hearing but able to answer questions and follow commands. Skin - intact HEENT - MMM, Neck supple, BiPAP in place Heart - +S1/S2, regular, tachycardic Lungs - Diminished breath sounds bilaterally with crackles, no wheezing, visibly tachypneic and in respiratory distress Abd - Soft, NT/ND Ext - no edema Labs and images reviewed Elevated troponin EKG with diffuse ST depressions Covid + CTA without PE. Suggestion of volume overload Assessment/Plan 81yo male with h/o adenocarcinoma of the lung s/p BILL lobectomy in 2018, severe , obstructive and restrictive lung disease and VADIM presenting with several days of SOB and chest pain, hypoxic on arrival requiring supplemental O2. Respiratory decompensation following CT scan requiring BiPAP placement. DNR/DNI status confirmed with family. Decompensation most likely secondary to fluid overload - severe . Patient with very little cardio-pulmonary reserve. Lasix 20mg IV given - cautious use of diuretics with severe . Will resume home PO lasix tomorrow with additional dosing as needed Covid-10 treatment with Dexamethasone 12mg IV daily as well as Remdesivir Duonebs, Albuterol, Mucinex and Flutter valve Check 2D echo Monitor troponin rise - patient started on heparin gtt. Consider Cardiology consultation Patient on high doses of Lantus at baseline - will initiate Lantus 80u BID, Pharmacy consultation to assist with glycemic management in critical illness and high dose steroids Remainder as above Resident Activity Tracking Resident Involvement: Resident Care Provided Care Provided: Adult Hospital Medicine
[2022-02-08 03:16] LABS: C Reactive Protein 5.09 mg/dl (0-0.5)
[2022-02-08] MEDS ORDERED: FUROSEMIDE INJ 20 MG/2 ML VIAL IV ONE (03:17)
[2022-02-08 04:05] LABS: iSTAT Arterial Blood Gas HCO3 29 meg/L (19-24); iSTAT Arterial Blood Gas pCO2 68 mmHg (35-46); iSTAT Arterial Blood Gas pH 7.23 (7.35-7.45); iSTAT Arterial Blood Gas pO2 333 mmHg (80-95); iSTAT Carbon Dioxide 31 mmol/L (24-31)
[2022-02-08] MEDS ORDERED: NITROGLYCERIN SL 0.4 MG/TAB TAB SL PRN (05:57)
[2022-02-08] MEDS ORDERED: DEXTROSE 50% 50 ML SYRINGE IV PRN (05:57)
[2022-02-08] MEDS ORDERED: CARBOHYDRATES FOR HYPOGLYCEMIA PO PRN (05:57)
[2022-02-08] MEDS ORDERED: GLUCOSE 10 TAB/TUBE PO PRN (05:57)
[2022-02-08] MEDS ORDERED: ALBUT/IPRATROP 3MG/0.5MG NEB 3 ML VIAL NEB PRN (05:57)
[2022-02-08] MEDS ORDERED: HEPARIN SODIUM/DEXTROSE 25,000 UNITS/500 ML BAG IV SCH (05:57)
[2022-02-08] MEDS ORDERED: PHARMACY GLYCEMIC MGMT CONSULT PRN (05:57)
[2022-02-08] MEDS ORDERED: GLUCAGON FOR INJ 1 MG VIAL SQ PRN (05:57)
[2022-02-08] MEDS ORDERED: GLUCOSE 40% GEL 15 GM TUBE PO PRN (05:57)
[2022-02-08] MEDS ORDERED: Heparin IV Adult Wt-Based Low-Dose WITH Bolus Protocol IV SCH (06:07)
[2022-02-08] MEDS ORDERED: REMDESIVIR 200 MG in SODIUM CHLORIDE 0.9% 210 ML IV ONE (06:30)
[2022-02-08] MEDS ORDERED: HEPARIN SOD (PORCINE) 1000 UNIT/ML IV ONE (06:30)
--- NOTE | 2022-02-08 07:34 | Hospitalist Progress Note ---
Date of Service February 08, 2022 Assessment & Plan (1) Acute respiratory failure with hypoxia: Plan: No home oxygen requirements, but quickly decompensated here and now requiring continuous BiPAP, and remains with significant increased work of breathing. Likely due to pulmonary edema in context of severe aortic stenosis history, as well as COVID-19 with ?pneumonia (difficulty to ascertain due to comorbid pulmonary edema). - CXR suggestive of pulmonary vascular congestion and CTA chest confirming this, along with trace L pleural effusion. BNP 670. - COVID-19 positive, CRP mildly elevated at 5.09, 6 on 02/08/22 - ECHO ef 55% severe as no RWMA - ABG corrected with bipap will have bipap hs (2) COVID-19: Plan: Worsening symptoms x5 days. COVID-19 positive, CRP mildly elevated at 5.09. Likely contributing to respiratory failure, as stated above. - s/p Decadron 8mg IV in ED - continue with Decadron 12mg IV daily x10 days - note: higher dosing of Decadron showed improved respiratory benefit in patients requiring significant supplemental O2 support (STEROID 2 trial) - start Remdesivir x5 days - continue BiPAP hs If CRP escalates may consider Tociluzimab - scheduled Duonebs Q6H + PRN Q2H able to come off Bipap (3) Elevated troponin: Plan: hsTroponin 92.9 (22:30) --> 160 (00:18). Patient had reported pleuritic chest pain, and EKG showing LVH with repolarization abnormality although no regional ST depressions or T-wave inversions. Suspect demand ischemia in context of respiratory failure/tachycardia. - will start therapeutic lovenox (4) Severe aortic stenosis: Plan: Per TTE in 10/2021. Patient had refused consultation for TAVR in the past. This is likely contributing to pulmonary edema and respiratory failure as well. - check TTE as stated above - iv lasix daily (5) Pulmonary hypertension: Plan: Per previous TTE, likely due to significant pulmonary disease and . 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 Restrictive disease due to lung cancer and left upper lobectomy in 2018. 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 - maintain continuous BiPAP for now - continue home Anoro Ellipta or hospital equivalent - Duonebs as stated above (7) Diabetes: Plan: A1c 8.1 on 11/09/2021. Repeat A1c in AM. SSI and bolus insulin while hospitalized. - started with Lantus 80 units BID - pharmacy glycemic consult appreciated, as patient is being started on high- dose steroids for COVID-19 (8) CKD (chronic kidney disease): Plan: Baseline Cr 1.6 - 1.8. Cr 1.65 here. - avoid nephrotoxic agents (note: eGFR >30 and thus patient remains candidate for Remdesivir) - (9) CAD (coronary artery disease): Plan: Continue home baby Aspirin and Imdur. (10) Anemia: Plan: Hgb 10.5 here, baseline 12-13. Normocytic. Suspect progressive anemia due to CKD. No signs of active bleeding. - continue home ferrous sulfate daily (11) Hypertension: Plan: Continue home Lopressor. Hold home triamterene-HCTZ as is on lasix iv (12) Dyslipidemia: Plan: Continue home Simvastatin (13) Pulmonary nodule: Plan: Per PET/CT in 04/2021 - 2.3 cm irregular opacity within the anterior basal segment of the left lower lobe. This is similar to chest CT of March 26, 2021 and slightly increased since CT of February 24, 2019. - follows with Dr. Tolliver - had planned for repeat CT scan in 6 months - f/u on final read of CTA chest (done today) which will help delineate progression of this nodule (14) GERD (gastroesophageal reflux disease): Plan: Protonix per hospital formulary Plan Code Status: DNR/DNI, no intubation under any circumstances (per discussion with patient's family) updated by phone Admission and Anticipated Discharge Date Admission Date: February 08, 2022 Subjective this pt is able to speak and understand was able to come off bipap and did have favorable abg with correction of acidosis and hypercarbia Review of Systems Review of Systems: moderate distress and fatigue no headache, no visual changes no speech or swallowing issues no chest pain, pressure or palpitations shortness of breath and non productive cough no abdominal pain, nausea or vomiting, diarrhea or constipation no dysuria, hematuria or frequency no focal joint pain or swelling no back pain, CVA tenderness or radicular pain no bruising, bleeding or rashes no focal signs of weakness or numbness or altered sensation no complaints of anxiety or depression.. Physical Exam Physical Exam: The patient appeared to be improved Vital signs as documented. Head exam is normocephalic atraumatic Neck is without JVD, thyromegaly, or carotid bruits. Lungs are diminished and has basilar rales Cardiac exam, Rhythm is regular.. hunter consistent with as Abdominal exam reveals normal bowel sounds, soft non tender, no masses Extremities are nonedematous and both pedal pulses are present Neurologic exam is alert and oriented, no focal loss of strength or sensation Skin is without bruises or rashes Psychologically is without concerns for anxiety or depression.. Results & Data Results & Data ([facility]) Vital Signs (Past 12 Hours) Vital Signs Temp Pulse Pulse Resp BP BP Pulse Ox 02/08/22 06:00 88 21 02/08/22 05:50 93 H 18 02/08/22 05:25 93 H 24 112/64 97 02/08/22 05:20 95 H 27 H 106/64 02/08/22 05:15 96 H 26 H 111/62 02/08/22 05:10 97 H 28 H 106/61 97 02/08/22 05:05 99 H 51 H 112/60 98 02/08/22 05:00 100 H 31 H 120/51 L 02/08/22 06:10 99.9 F H 89 24 93/57 L 94 02/08/22 04:55 127/66 02/08/22 04:55 103 H 27 H 98 02/08/22 04:50 104 H 27 H 115/72 98 02/08/22 04:46 107 H 30 H 99 02/08/22 04:45 107 H 28 H 106/65 98 02/08/22 04:40 110 H 31 H 98 02/08/22 04:40 100/85 02/08/22 04:35 113 H 30 H 108/77 98 02/08/22 04:32 116 H 33 H 142/87 H 99 02/08/22 04:30 117 H 35 H 98 02/08/22 04:25 121 H 33 H 158/88 H 98 02/08/22 04:21 98 02/08/22 04:21 129/85 02/08/22 04:15 123 H 37 H 157/81 H 100 02/08/22 04:10 123 H 38 H 94 02/08/22 04:10 165/92 H 02/08/22 04:05 123 H 39 H 177/120 H 97 02/08/22 04:00 121 H 37 H 161/97 H 99 02/08/22 03:55 169/88 H 02/08/22 03:55 119 H 38 H 169/88 H 100 02/08/22 04:22 119 H 37 H 100 02/08/22 03:50 165/100 H 02/08/22 03:50 120 H 36 H 100 02/08/22 03:45 118 H 33 H 158/82 H 100 02/08/22 03:40 117 H 39 H 154/84 H 100 02/08/22 03:35 116 H 36 H 157/82 H 100 02/08/22 03:30 115 H 39 H 154/80 H 100 02/08/22 03:25 114 H 36 H 158/80 H 100 02/08/22 03:20 113 H 35 H 156/80 H 100 02/08/22 03:15 114 H 37 H 152/79 H 100 02/08/22 03:12 113 H 37 H 161/94 H 99 02/08/22 03:05 108 H 37 H 158/90 H 96 02/08/22 03:01 106 H 35 H 130/74 99 02/08/22 03:00 104 H 36 H 98 02/08/22 02:55 101 H 35 H 131/80 100 02/08/22 02:53 103 H 35 H 136/72 100 02/08/22 02:46 140 H 37 H 186/127 H 100 02/08/22 02:30 138 H 35 H 197/147 H 100 02/08/22 02:16 136 H 30 H 193/152 H 94 02/08/22 02:15 135 H 31 H 95 02/08/22 02:01 122 H 26 H 94 02/08/22 02:00 121 H 28 H 171/94 H 94 02/08/22 01:52 155/105 H 97 02/08/22 01:51 95 02/08/22 01:15 102 H 25 H 157/72 H 99 02/07/22 23:38 137 H 36 H 98 02/08/22 01:00 105 H 23 174/81 H 98 02/08/22 00:45 107 H 26 H 163/78 H 97 02/08/22 00:30 106 H 26 H 161/81 H 96 02/08/22 00:17 107 H 22 97 02/08/22 00:17 159/87 H 02/08/22 00:15 108 H 28 H 97 02/08/22 00:00 106 H 26 H 98 02/07/22 23:45 107 H 26 H 99 02/07/22 23:33 108 H 26 H 98 02/07/22 23:14 02/07/22 23:22 99.7 F H 113 H 26 H 126/69 96 O2 Del Method O2 Flow Rate FiO2 02/08/22 06:00 02/08/22 05:50 02/08/22 05:25 02/08/22 05:20 02/08/22 05:15 02/08/22 05:10 02/08/22 05:05 02/08/22 05:00 02/08/22 06:10 BiPAP 40 02/08/22 04:55 02/08/22 04:55 02/08/22 04:50 02/08/22 04:46 02/08/22 04:45 02/08/22 04:40 02/08/22 04:40 02/08/22 04:35 02/08/22 04:32 02/08/22 04:30 02/08/22 04:25 02/08/22 04:21 02/08/22 04:21 02/08/22 04:15 02/08/22 04:10 02/08/22 04:10 02/08/22 04:05 02/08/22 04:00 02/08/22 03:55 02/08/22 03:55 02/08/22 04:22 50 02/08/22 03:50 02/08/22 03:50 02/08/22 03:45 02/08/22 03:40 02/08/22 03:35 02/08/22 03:30 02/08/22 03:25 02/08/22 03:20 02/08/22 03:15 02/08/22 03:12 02/08/22 03:05 02/08/22 03:01 02/08/22 03:00 02/08/22 02:55 02/08/22 02:53 02/08/22 02:46 02/08/22 02:30 02/08/22 02:16 02/08/22 02:15 02/08/22 02:01 02/08/22 02:00 02/08/22 01:52 02/08/22 01:51 02/08/22 01:15 02/07/22 23:38 100 02/08/22 01:00 02/08/22 00:45 02/08/22 00:30 02/08/22 00:17 02/08/22 00:17 02/08/22 00:15 02/08/22 00:00 02/07/22 23:45 02/07/22 23:33 02/07/22 23:14 Nasal Cannula 4 02/07/22 23:22 Nasal Cannula 4 PG Care Time/CCT Total # of Minutes Spent Total Time Spent with Patient: Total time spent is greater than 50% in coordination of care (as documented) at patient's floor/unit and/or counseling patient: Coding Level of Care Code 05665 Subseq Hosp Care Lvl 3 Diagnoses Acute respiratory failure with hypoxia J96.01 COVID-19 U07.1 Elevated troponin R77.8 Severe aortic stenosis I35.0 Pulmonary hypertension I27.20 Mixed restrictive and obstructive lung disease J43.9; J98.4 Diabetes E11.9 CKD (chronic kidney disease) N18.9 CAD (coronary artery disease) I25.10 Anemia D64.9 Hypertension I10 Dyslipidemia E78.5 Pulmonary nodule R91.1 GERD (gastroesophageal reflux disease) K21.9
[2022-02-08] MEDS: ALBUT/IPRATROP 3MG/0.5MG NEB 3 ML VIAL INH SCH ×3 (07:41→19:29)
--- NOTE | 2022-02-08 08:01 | CT Scan Report ---
CHEST CTA for PULMONARY ARTERIES CT DOSE: 1080.93 mGy.cm HISTORY: Shortness of breath. TECHNIQUE: Multiaxial CT images of the chest were performed following the intravenous administration of contrast to evaluate the pulmonary arteries. Maximal intensity projection images were also obtaine d. A dose lowering technique was utilized adhering to the principles of ALARA. COMPARISON STUDY: PET CT 04/30/2021. Chest CT 03/26/2021. FINDINGS: Limited views of the upper abdomen demonstrate normal liver, spleen, and adrenal glands. No rmal caliber esophagus. The thyroid gland enhances normally. The heart is mildly enlarged. Severe cor onary artery calcifications are noted. Small right and trace left pleural effusions. No significant h ilar lymphadenopathy. There are few prominent mediastinal lymph nodes measure up to 12 mm in short ax is diameter. These have slightly increased in size. Moderate calcified plaque within the normal calib er thoracic aorta. No evidence for an aortic dissection. 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 Respiratory motion artifact results in nondiagnostic evaluation of the majority of the segmental/subsegmental pulmonary arteries. However, the remaining pulmonary arteries show no filling defects to suggest a pulmonary embolus. Old, healed left-sided rib fractures are noted. No suspicious lytic or blastic osseous lesions. No pneumothorax. Small amount of secretions noted within the trach ea and left mainstem bronchus. There is respiratory motion artifact. Linear scarlike densities at the left lung base persist. Evidence for prior left upper lobectomy. Right greater than left interlobula r septal thickening consistent with mild asymmetric pulmonary edema. Mild central bronchial wall thic kening. IMPRESSION: 1. No evidence for pulmonary embolus with limitations as described above. 2. Mild asymmetric pulmonary edema. 3. Small right and trace left pleural effusions. 4. Prior left upper lobectomy with stable linear scarlike densities at the left lung base. 5. Prominent mediastinal lymph nodes. This may be reactive to the lymphadenopathy. This bears watchin g on future examinations. ACT 112: Negative or not required by law. Electronically signed by: Cholo Fletcher M.D. 02/08/2022 7:59 AM
[2022-02-08] MEDS: INSULIN ASPART PER UNIT SC SCH ×4 (08:24→20:41)
[2022-02-08] MEDS: ASPIRIN 81 MG ECTAB PO SCH ×2 (08:38→21:01)
--- NOTE | 2022-02-08 08:38 | XRay Report ---
SINGLE VIEW CHEST CLINICAL HISTORY: Sepsis. FINDINGS: An AP, portable, upright chest radiograph is compared to study dated 02/07/2022. The heart i s enlarged noting atherosclerotic calcification of the thoracic aorta. There is pulmonary vascular co ngestion with evidence of pulmonary edema. Postoperative change and volume loss is noted in the left lung with elevation of the left hemidiaphragm. There are small pleural effusions with dependent conso lidation. No pneumothorax is seen. The skeletal structures are osteopenic. There are chronic left pos terior rib fractures. IMPRESSION: 1. Cardiomegaly with evidence of congestive failure and pulmonary edema. 2. Small pleural effusions. ACT 112: Negative or not required by law. Electronically signed by: Uzair Wilson M.D. 02/08/2022 8:36 AM
[2022-02-08] MEDS: GABAPENTIN 100 MG CAP PO SCH ×2 (08:39→21:00)
[2022-02-08] MEDS: guaiFENesin 600 MG TABCR PO SCH ×2 (08:39→21:00)
[2022-02-08] MEDS: PANTOprazole 40 MG TAB PO SCH (08:39)
[2022-02-08] MEDS: FERROUS SULFATE 325 MG TAB PO SCH (08:39)
[2022-02-08] MEDS: UMECLIDINIUM/VILANTEROL 62.5/25MCG 7 PUFFS/INHALER INH SCH (08:39)
[2022-02-08] MEDS: METOPROLOL TARTRATE 50 MG TAB PO SCH ×2 (08:39→21:01)
[2022-02-08] MEDS: ISOSORBIDE MONO EXTENDED REL 60 MG TABCR PO SCH (08:39)
[2022-02-08] MEDS ORDERED: dexAMETHasone 12 MG in SYRINGE 0 ML IV SCH (09:00)
[2022-02-08] MEDS ORDERED: INSULIN HUMAN NPH SC SCH (09:00)
[2022-02-08] MEDS ORDERED: LANTUS PER UNIT CHARGE SQ SCH ×3 (09:00→21:00)
[2022-02-08] MEDS ORDERED: FUROSEMIDE 40 MG/4 ML VIAL IV SCH (09:00)
[2022-02-08 09:25] LABS: Base Excess ABG 0.1 mEq/L (-9-1.8); HCO3 ABG 25 mmol/L (19-24); Oxygen Saturation ABG > 100.0 % (90-95); PCO2 ABG 39 mmHg (35-46); PO2 ABG 119 mmHg (80-95); pH ABG 7.41 (7.35-7.45)
[2022-02-08 09:29] LABS: Allen Test Pos (Pos)
[2022-02-08] MEDS: ENOXAPARIN 100 MG/1ML SYR SQ SCH ×2 (10:39→21:08)
[2022-02-08] MEDS: dexAMETHasone 12 MG in DEXTROSE 5% 25 ML IV SCH (10:45)
[2022-02-08] MEDS ORDERED: INSULIN HUMAN NPH SC ONE (11:30)
--- NOTE | 2022-02-08 12:01 | XCELERA ---
[id number]
--- NOTE | 2022-02-08 12:49 | Electrocardiogram Report ---
Test Reason : Blood Pressure : / mmHG Vent. Rate : 105 BPM Atrial Rate : 105 BPM P-R Int : 182 ms QRS Dur : 090 ms QT Int : 348 ms P-R-T Axes : 000 005 -50 degrees QTc Int : 459 ms Sinus tachycardia Left ventricular hypertrophy with repolarization abnormality Abnormal ECG When compared with ECG of 10-NOV-2021 06:00, No significant change was found Confirmed by Adriano Agosto ([id number]) on 02/08/2022 12:49:10 PM Referred By: REFERRED SELF Confirmed By:Adriano Agosto
--- NOTE | 2022-02-08 12:50 | Electrocardiogram Report ---
Test Reason : Blood Pressure : / mmHG Vent. Rate : 137 BPM Atrial Rate : 137 BPM P-R Int : 124 ms QRS Dur : 090 ms QT Int : 332 ms P-R-T Axes : 046 012 -14 degrees QTc Int : 501 ms Poor data quality, interpretation may be adversely affected Sinus tachycardia Left ventricular hypertrophy with repolarization abnormality Abnormal ECG When compared with ECG of 08-FEB-2022 01:04, (unconfirmed) ST more depressed Lateral leads Confirmed by Adriano Agosto ([id number]) on 02/08/2022 12:49:31 PM Referred By: REFERRED SELF Confirmed By:Adriano Agosto
--- NOTE | 2022-02-08 13:20 | Billing Data ---
Date of Service February 08, 2022 Coding Level of Care Code 42913 Initial Inpt Care Lvl 3
[2022-02-08 13:39] LABS: Appearance Urine Clear (Clear); Bacteria Urine Automated Negative (Negative); Bilirubin Urine Negative (Negative); Blood Urine 3+ (Negative); Color Urine Yellow; Glucose Urine UA Negative (Negative); Ketones Urine Negative (Negative); Leukocyte Esterase Urine Negative (Negative); Nitrite Urine Negative (Negative); Protein Urine Negative (Negative); Urobilinogen Urine Negative (Negative)
--- NOTE | 2022-02-08 13:51 | Pharmacy Report ---
Pharmacy Glycemic Short Note 2 - Date of Service February 08, 2022 - Glycemic Short BSG Results (Last 24 hours): 02/07/22 02/08/22 02/08/22 22:30 07:50 11:08 Glucose 176 H POC Glucose 238 H 248 H OUTPATIENT ANTIDIABETIC REGIMEN: * Humalog Mix 75/25 95 units in morning and 60 units in PM (TDD = 155 units) * Dulaglutide 0.75 mg weekly * HbA1C = 8.1% (11/09/21) ASSESSMENT: * Mr Bronson is a 81 y/o M with a PMH of T2DM who presents with respiratory failure secondary to COVID-19. Patient received dexamethasone 8 mg in ER and will start dexamethasone 12 mg IV daily at noon today. * BSG this morning was 238 mg/dL. Patient was NPO but changed to diet with lunch. * During previously hospitalization, patient required around 50 units of insulin per day. Will stress this amount of insulin to determine initial regimen. * Start with Lantus 20 units BID + Novolog CF 12 CR 4 * Since patient was NPO and unclear how steroids will affect him, give NPH 30 units this morning to help cover steroid hyperglycemia. * Overnight checks for tonight due to Dexamethasone 20 mg given today. PLAN FOR INPATIENT GLYCEMIC CONTROL: * Hold outpatient oral diabetes medications * Basal insulin * Lantus 20 units SQ BID * NPH 30 units SQ daily with dexamethasone * Bolus insulin * NovoLog per scale ACHS or Q6hrs while NPO * Goal Range: Low 110 mg/dL - High 140 mg/dL * Correction Factor: 12 mg/dL/unit * Nutritional / Prandial insulin per carb ratio of 1 unit per 4 grams CHO consumed
[2022-02-08] MEDS: SIMVASTATIN 20 MG TAB PO SCH (21:01)
[2022-02-09] MEDS: ALBUT/IPRATROP 3MG/0.5MG NEB 3 ML VIAL INH SCH ×4 (00:29→19:27)
[2022-02-09] MEDS: INSULIN ASPART PER UNIT SC SCH ×6 (01:09→20:35)
[2022-02-09 06:48] LABS: Hematocrit (blood only) 34.1 % (40.1-51.0); Hemoglobin 10.7 g/dl (14.0-18.0); Mean Corpuscular Hemoglobin 28.8 pg (25.0-34.0); Mean Corpuscular Hgb Conc 31.4 g/dL (32.0-36.0); Mean Corpuscular Volume 91.9 fL (80.0-100.0); Mean Platelet Volume 9.5 fL (9.4-12.4); Platelet Count 288 K/uL (130-400); RDW Coefficient of Variation 14.4 % (11.5-14.5); RDW Standard Deviation 48.5 fL (36.4-46.3); Red Blood Count 3.71 M/uL (4.63-6.08); White Blood Count 12.23 K/ul (4.8-10.8)
[2022-02-09 07:16] LABS: Albumin Level 3.8 gm/dl (3.4-5.0); BUN Creatinine Ratio 26.1 (10-20); Bilirubin Direct 0.1 mg/dl (0-0.2); Bilirubin,Total 0.6 mg/dl (0.2-1.0); Creatinine Clr Calc Pharmacy 38.1 ml/min; Est GFR (African American) 38.5 ml/min; Est GFR (Non-African American) 33.2 ml/min; Potassium 4.4 mmol/L (3.5-5.1); Total Protein 7.1 gm/dl (6.0-8.3)
[2022-02-09 07:43] LABS: Estimated Average Glucose 134 mg/dl; Hemoglobin A1C 6.3 % (4.5-5.6)
[2022-02-09] MEDS: PANTOprazole 40 MG TAB PO SCH (08:28)
[2022-02-09] MEDS: GABAPENTIN 100 MG CAP PO SCH ×2 (08:28→20:37)
[2022-02-09] MEDS: POTASSIUM CHLORIDE CRTAB 20 MEQ TABCR PO SCH (08:28)
[2022-02-09] MEDS: guaiFENesin 600 MG TABCR PO SCH ×2 (08:28→20:36)
[2022-02-09] MEDS: FERROUS SULFATE 325 MG TAB PO SCH (08:28)
[2022-02-09] MEDS: ISOSORBIDE MONO EXTENDED REL 60 MG TABCR PO SCH (08:28)
[2022-02-09] MEDS: ASPIRIN 81 MG ECTAB PO SCH ×2 (08:28→20:36)
[2022-02-09] MEDS: METOPROLOL TARTRATE 50 MG TAB PO SCH ×2 (08:28→20:38)
[2022-02-09] MEDS: UMECLIDINIUM/VILANTEROL 62.5/25MCG 7 PUFFS/INHALER INH SCH (08:32)
[2022-02-09] MEDS: dexAMETHasone 12 MG in DEXTROSE 5% 25 ML IV SCH (08:55)
[2022-02-09] MEDS: ENOXAPARIN 100 MG/1ML SYR SQ SCH (08:55)
[2022-02-09] MEDS ORDERED: FUROSEMIDE 40 MG TAB PO SCH (09:00)
[2022-02-09] MEDS ORDERED: LANTUS PER UNIT CHARGE SQ SCH ×2 (09:00→21:00)
[2022-02-09] MEDS: REMDESIVIR 100mg: Days 2-5 IV SCH (11:49)
--- NOTE | 2022-02-09 12:02 | Pharmacy Report ---
Pharmacy Glycemic Short Note 2 - Date of Service February 09, 2022 - Glycemic Short BSG Results (Last 24 hours): 02/08/22 02/08/22 02/09/22 16:27 20:10 01:03 Glucose POC Glucose 196 H 159 H 121 H 02/09/22 02/09/22 02/09/22 04:19 06:33 07:58 Glucose 137 H POC Glucose 131 H 140 H 02/09/22 11:42 Glucose POC Glucose 143 H OUTPATIENT ANTIDIABETIC REGIMEN: * Humalog Mix 75/25 95 units in morning and 60 units in PM (TDD = 155 units) * Dulaglutide 0.75 mg weekly * HbA1C = 6.3% (02/09/22) ASSESSMENT: * Mr Bronson's BSGs yesterday were [phone] mg/dL and overnight were 121- 131 mg/dL. * Today's BSGs are 140-143 mg/dL. * Yesterday patient received 111 units of insulin (70 units of basal and 41 units of bolus). Patient received 20 mg of IV dexamethasone. * Today will receive 12 mg of IV dexamethasone. * In order to prevent AM hypoglycemia seen with Lantus + NPH, will d/c NPH. Tighten Novolog to account for this. * AM BSGs trending downwards so decrease Lantus. BACKGROUND * Mr Bronson is a 81 y/o M with a PMH of T2DM who presents with respiratory failure secondary to COVID-19. Patient received dexamethasone 8 mg in ER and will start dexamethasone 12 mg IV daily at noon today. * BSG this morning was 238 mg/dL. Patient was NPO but changed to diet with lunch. * During previously hospitalization, patient required around 50 units of insulin per day. Will stress this amount of insulin to determine initial regimen. * Start with Lantus 20 units BID + Novolog CF 12 CR 4 * Since patient was NPO and unclear how steroids will affect him, give NPH 30 units this morning to help cover steroid hyperglycemia. * Overnight checks for tonight due to Dexamethasone 20 mg given today. PLAN FOR INPATIENT GLYCEMIC CONTROL: * Hold outpatient oral diabetes medications * Basal insulin * Lantus 18 units SQ BID (15 units if BSG < 160 mg/dL in evening) * Bolus insulin * NovoLog per scale ACHS or Q6hrs while NPO * Goal Range: Low 110 mg/dL - High 140 mg/dL * Correction Factor: 10 mg/dL/unit * Nutritional / Prandial insulin per carb ratio of 1 unit per 3 grams CHO consumed
--- NOTE | 2022-02-09 17:32 | Hospitalist Progress Note ---
Date of Service February 09, 2022 Assessment & Plan (1) Acute respiratory failure with hypoxia: Plan: pulmonary edema in context of severe aortic stenosis history, as well as COVID- 19, symptoms seem most from Heart failure - CXR suggestive of pulmonary vascular congestion and CTA chest confirming this, - COVID-19 positive, CRP mildly elevated - last TTE in 10/2021 with good EF and severe - repeat now - slight pre renal with iv lasix held 02/09m resume po on 02/10/22 - respiratory failure and hypercarbia resolved still with oxygen requirement (2) COVID-19: Plan: Worsening symptoms x5 days. COVID-19 positive, CRP mildly elevated at 5.09. Likely contributing to respiratory failure, as stated above. - will reduce decadron to 6 mg a day as Covid seems not be the primary driver sales of hospital course - start Remdesivir x5 days - continue home Mucinex 1.2g PO BID - flutter valve Q6H - scheduled Duonebs Q6H + PRN Q2H (3) Elevated troponin: Plan: hsTroponin 92.9 (22:30) --> 160 (00:18). felt to be demand ischemia in presence of , de escalate lovenox at this time to prevent doses, VTE risk high with concurrent covid (4) Severe aortic stenosis: Plan: Per TTE in 10/2021. Patient had refused consultation for TAVR in the past. This is likely contributing to pulmonary edema and respiratory failure as well. - check TTE - continue home Lasix 40mg PO QD starting 02/10/22 AM, (5) Pulmonary hypertension: Plan: Per TTE, likely due to significant pulmonary disease and . 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 Restrictive disease due to lung cancer and left upper lobectomy in 2018. 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 - maintain continuous BiPAP for now - continue home Anoro Ellipta or hospital equivalent - Duonebs as stated above (7) Diabetes: Plan: A1c 8.1 on 11/09/2021. Repeat A1c in AM. SSI and bolus insulin while hospitalized. - started with Lantus 80 units BID - pharmacy glycemic consult appreciated, as patient is being started on high- dose steroids for COVID-19 (8) CKD (chronic kidney disease): Plan: Baseline Cr 1.6 - 1.8. Cr 1.65 here. - avoid nephrotoxic agents (note: eGFR >30 and thus patient remains candidate for Remdesivir) - trend BMP daily (9) CAD (coronary artery disease): Plan: Continue home baby Aspirin and Imdur. (10) Anemia: Plan: Hgb 10.5 here, baseline 12-13. Normocytic. Suspect progressive anemia due to CKD. No signs of active bleeding. - continue home ferrous sulfate daily - trend daily (11) Hypertension: Plan: Continue home Lopressor. Hold home triamterene-HCTZ due to CKD as well as likely need for increased diuretic regimen. (12) Dyslipidemia: Plan: Continue home Simvastatin (13) Pulmonary nodule: Plan: Per PET/CT in 04/2021 - 2.3 cm irregular opacity within the anterior basal segment of the left lower lobe. This is similar to chest CT of March 26, 2021 and slightly increased since CT of February 24, 2019. - follows with Dr. Tolliver - had planned for repeat CT scan in 6 months - f/u on final read of CTA chest (done today) which will help delineate progression of this nodule (14) GERD (gastroesophageal reflux disease): Plan: Protonix per hospital formulary Plan FEN/GI: NPO except sips/meds DVT Prophylaxis:lovenox Code Status: DNR/DNI, no intubation under any circumstances (per discussion with patient's family) Admission and Anticipated Discharge Date Admission Date: February 08, 2022 Subjective pt is responsive and talkative biggest issue is c/o neuropathy to feet explained how aortic stenosis valve likely plays role, pt still not interested in repair Review of Systems Review of Systems: mild respiratory distress and fatigue no headache, no visual changes no speech or swallowing issues no chest pain, pressure or palpitations shortness of breath and non productive cough no abdominal pain, nausea or vomiting, diarrhea or constipation no dysuria, hematuria or frequency no focal joint pain or swelling no back pain, CVA tenderness or radicular pain no bruising, bleeding or rashes no focal signs of weakness or numbness or altered sensation no complaints of anxiety or depression.. Physical Exam Physical Exam: The patient appeared to be improved Vital signs as documented. Head exam is normocephalic atraumatic Neck is without JVD, thyromegaly, or carotid bruits. Lungs are diminished and has basilar rales Cardiac exam, Rhythm is regular.. hunter consistent with as Abdominal exam reveals normal bowel sounds, soft non tender, no masses Extremities are nonedematous and both pedal pulses are present Neurologic exam is alert and oriented, no focal loss of strength or sensation Skin is without bruises or rashes Psychologically is without concerns for anxiety or depression.. Results & Data Results & Data ([facility]) Vital Signs (Past 12 Hours) Vital Signs Temp Pulse Resp BP Pulse Ox O2 Del Method 02/09/22 16:41 98.2 F 77 20 139/67 98 Room Air 02/09/22 12:00 71 16 100 Room Air 02/09/22 10:31 98.6 F 78 18 115/67 96 Room Air 02/09/22 08:01 97.9 F 76 20 108/65 99 Room Air 02/09/22 07:49 71 16 100 Room Air PG Care Time/CCT Total # of Minutes Spent Total Time Spent with Patient: Total time spent is greater than 50% in coordination of care (as documented) at patient's floor/unit and/or counseling patient: Coding Level of Care Code 20310 Subseq Hosp Care Lvl 3 Diagnoses Acute respiratory failure with hypoxia J96.01 COVID-19 U07.1 Elevated troponin R77.8 Severe aortic stenosis I35.0 Pulmonary hypertension I27.20 Mixed restrictive and obstructive lung disease J43.9; J98.4 Diabetes E11.9 CKD (chronic kidney disease) N18.9 CAD (coronary artery disease) I25.10 Anemia D64.9 Hypertension I10 Dyslipidemia E78.5 Pulmonary nodule R91.1 GERD (gastroesophageal reflux disease) K21.9
[2022-02-09] MEDS: SIMVASTATIN 20 MG TAB PO SCH (20:37)
[2022-02-09] MEDS: ENOXAPARIN INJ 30 MG/0.3 ML SYR SQ SCH (20:39)
[2022-02-10] MEDS: ALBUT/IPRATROP 3MG/0.5MG NEB 3 ML VIAL INH SCH ×4 (00:44→19:21)
[2022-02-10 07:31] LABS: Hematocrit (blood only) 33.3 % (40.1-51.0); Hemoglobin 10.5 g/dl (14.0-18.0); Mean Corpuscular Hemoglobin 28.5 pg (25.0-34.0); Mean Corpuscular Hgb Conc 31.5 g/dL (32.0-36.0); Mean Corpuscular Volume 90.5 fL (80.0-100.0); Mean Platelet Volume 9.7 fL (9.4-12.4); Platelet Count 327 K/uL (130-400); RDW Coefficient of Variation 14.6 % (11.5-14.5); RDW Standard Deviation 48.4 fL (36.4-46.3); Red Blood Count 3.68 M/uL (4.63-6.08); White Blood Count 14.13 K/ul (4.8-10.8)
[2022-02-10 07:54] LABS: Albumin Level 3.7 gm/dl (3.4-5.0); BUN Creatinine Ratio 33.5 (10-20); Bilirubin Direct 0.1 mg/dl (0-0.2); Bilirubin,Total 0.5 mg/dl (0.2-1.0); Calcium 8.7 mg/dl (8.5-10.1); Creatinine Clr Calc Pharmacy 40.7 ml/min; Est GFR (African American) 41.7 ml/min; Potassium 4.2 mmol/L (3.5-5.1); Total Protein 6.8 gm/dl (6.0-8.3)
[2022-02-10] MEDS ORDERED: INSULIN HUMAN NPH SC SCH (08:00)
[2022-02-10] MEDS ORDERED: dexAMETHasone 6 MG in DEXTROSE 5% 25 ML IV SCH (09:00)
[2022-02-10] MEDS: INSULIN ASPART PER UNIT SC SCH ×4 (09:12→20:33)
[2022-02-10] MEDS: UMECLIDINIUM/VILANTEROL 62.5/25MCG 7 PUFFS/INHALER INH SCH (09:30)
[2022-02-10] MEDS: dexAMETHasone 6 MG in SYRINGE 0 ML IV SCH (09:30)
[2022-02-10] MEDS: ASPIRIN 81 MG ECTAB PO SCH ×2 (09:31→20:19)
[2022-02-10] MEDS: ENOXAPARIN INJ 30 MG/0.3 ML SYR SQ SCH ×2 (09:31→20:19)
[2022-02-10] MEDS: guaiFENesin 600 MG TABCR PO SCH ×2 (09:31→20:19)
[2022-02-10] MEDS: ISOSORBIDE MONO EXTENDED REL 60 MG TABCR PO SCH (09:31)
[2022-02-10] MEDS: FUROSEMIDE 40 MG TAB PO SCH (09:31)
[2022-02-10] MEDS: GABAPENTIN 100 MG CAP PO SCH ×2 (09:31→20:20)
[2022-02-10] MEDS: METOPROLOL TARTRATE 50 MG TAB PO SCH ×2 (09:32→20:20)
[2022-02-10] MEDS: PANTOprazole 40 MG TAB PO SCH (09:32)
[2022-02-10] MEDS: FERROUS SULFATE 325 MG TAB PO SCH (09:35)
--- NOTE | 2022-02-10 09:36 | XRay Report ---
SINGLE VIEW CHEST CLINICAL HISTORY: Follow-up congestive heart failure. FINDINGS: An AP, portable, upright chest radiograph is compared to study dated 02/07/2022 and correlat ed with chest CT dated 02/08/2022. The heart is enlarged noting atherosclerotic calcification of the t horacic aorta. There is pulmonary vascular congestion with mild interstitial edema. This has modestly improved as compared to 02/07/2022. Small pleural effusions are noted with bibasilar atelectasis. No pneumothorax is seen. The skeletal structures are osteopenic. There is chronic posttraumatic deformit y of the left-sided ribs. IMPRESSION: Cardiomegaly with evidence of congestive failure and pulmonary edema. This has modestly i mproved from 02/07/2022. ACT 112: Negative or not required by law. Electronically signed by: Uzair Wilson M.D. 02/10/2022 9:35 AM
--- NOTE | 2022-02-10 12:00 | Pharmacy Report ---
Pharmacy Glycemic Short Note 2 - Date of Service February 10, 2022 - Glycemic Short BSG Results (Last 24 hours): 02/09/22 02/09/22 02/10/22 16:39 20:22 07:09 Glucose 108 H POC Glucose 135 H 115 H 02/10/22 02/10/22 07:58 11:47 Glucose POC Glucose 120 H 117 H OUTPATIENT ANTIDIABETIC REGIMEN: * Humalog Mix 75/25 95 units in morning and 60 units in PM (TDD = 155 units) * Dulaglutide 0.75 mg weekly * HbA1C = 6.3% (02/09/22) ASSESSMENT: 02/10/22: * BSGs were reasonably well-controlled past 24 hours. * IV dexamethasone was reduced from 12mg IV daily to 6mg IV daily this morning. * Basal insulin switched from Lantus to NPH this morning, for ease of transition to outpt insulin on discharge (pt uses Humalog 75/25). * Anticipate that insulin requirements may decrease with reduced steroid dose. Novolog parameters loosened today accordingly. 02/09 * Mr Bronson's BSGs yesterday were [phone] mg/dL and overnight were 121- 131 mg/dL. * Today's BSGs are 140-143 mg/dL. * Yesterday patient received 111 units of insulin (70 units of basal and 41 units of bolus). Patient received 20 mg of IV dexamethasone. * Today will receive 12 mg of IV dexamethasone. * In order to prevent AM hypoglycemia seen with Lantus + NPH, will d/c NPH. Tighten Novolog to account for this. * AM BSGs trending downwards so decrease Lantus. PLAN FOR INPATIENT GLYCEMIC CONTROL: * Hold outpatient oral diabetes medications * Basal insulin * NPH 15 units SQ this AM * NPH 10 units SQ this PM * Bolus insulin * NovoLog per scale ACHS or Q6hrs while NPO * Goal Range: Low 110 mg/dL - High 140 mg/dL * Correction Factor: 15 mg/dL/unit * Nutritional / Prandial insulin per carb ratio of 1 unit per 5 grams CHO consumed
[2022-02-10] MEDS: REMDESIVIR 100mg: Days 2-5 IV SCH (12:12)
[2022-02-10] MEDS: INSULIN HUMAN NPH SC SCH (17:06)
--- NOTE | 2022-02-10 17:46 | Hospitalist Progress Note ---
Date of Service February 10, 2022 Assessment & Plan (1) Acute respiratory failure with hypoxia: Plan: pulmonary edema in context of severe aortic stenosis history, as well as COVID- 19, symptoms seem most from Heart failure - CXR suggestive of pulmonary vascular congestion and CTA chest confirming this, - COVID-19 positive, CRP mildly elevated - last TTE in 10/2021 with good EF and severe - repeat now - slight pre renal with iv lasix held 02/09m resume po on 02/10/22 respiratory failure and hypercarbia resolved remains with oxygen requirement (2) COVID-19: Plan: Worsening symptoms x5 days. COVID-19 positive, CRP mildly elevated at 5.09. Likely contributing to respiratory failure, as stated above. - will reduce decadron to 6 mg a day as Covid seems not be the primary hearse driver of hospital course - Remdesivir x5 doses LD 01/24/22 - continue home Mucinex 1.2g PO BID - flutter valve Q6H - scheduled Duonebs Q6H + PRN Q2H (3) Elevated troponin: Plan: hsTroponin 92.9 (22:30) --> 160 (00:18). felt to be demand ischemia in presence of , de escalate lovenox at this time to prevent doses, VTE risk high with concurrent covid (4) Severe aortic stenosis: Plan: Per TTE in 10/2021. Patient had refused consultation for TAVR in the past. This is likely contributing to pulmonary edema and respiratory failure as well. - TTE 02/08/22 EF 55=60, severe valve area 0.62cm2, pt still not sure he wants to have TAVR - continue home Lasix 40mg PO QD starting 02/10/22 AM, (5) Pulmonary hypertension: Plan: Per TTE, likely due to significant pulmonary disease and . 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 Restrictive disease due to lung cancer and left upper lobectomy in 2018. 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 - maintain continuous BiPAP for now - continue home Anoro Ellipta or hospital equivalent - Duonebs as stated above (7) Diabetes: Plan: A1c 8.1 on 11/09/2021. Repeat A1c in AM. SSI and bolus insulin while hospitalized. - started with Lantus 80 units BID - pharmacy glycemic consult appreciated, as patient is being started on high- dose steroids for COVID-19 (8) CKD (chronic kidney disease): Plan: Baseline Cr 1.6 - 1.8. Cr 1.65 here. - avoid nephrotoxic agents (note: eGFR >30 and thus patient remains candidate for Remdesivir) (9) CAD (coronary artery disease): Plan: Continue home baby Aspirin and Imdur. (10) Anemia: Plan: Hgb 10.5 here, baseline 12-13. Normocytic. Suspect progressive anemia due to CKD. No signs of active bleeding. - continue home ferrous sulfate daily (11) Hypertension: Plan: Continue home Lopressor. Hold home triamterene-HCTZ due to CKD as well as likely need for increased diuretic regimen. (12) Dyslipidemia: Plan: Continue home Simvastatin (13) Pulmonary nodule: Plan: Per PET/CT in 04/2021 - 2.3 cm irregular opacity within the anterior basal segment of the left lower lobe. This is similar to chest CT of March 26, 2021 and slightly increased since CT of February 24, 2019. - follows with Dr. Tolliver - had planned for repeat CT scan in 6 months - will need continued nodule follow up on CT (14) GERD (gastroesophageal reflux disease): Plan: Protonix per hospital formulary Plan DVT Prophylaxis:lovenox Code Status: DNR/DNI, no intubation under any circumstances (per discussion with patient's family) Admission and Anticipated Discharge Date Admission Date: February 08, 2022 Subjective Patient is doing extremely well still concerned about having his aortic valve replaced Biggest issue at this time is understanding if he has functional abilities so PT OT is ordered on 02/10/2022 Review of Systems Review of Systems: mild respiratory distress and fatigue no headache, no visual changes no speech or swallowing issues no chest pain, pressure or palpitations shortness of breath and non productive cough no abdominal pain, nausea or vomiting, diarrhea or constipation no dysuria, hematuria or frequency no focal joint pain or swelling no back pain, CVA tenderness or radicular pain no bruising, bleeding or rashes no focal signs of weakness or numbness or altered sensation no complaints of anxiety or depression.. Physical Exam Physical Exam: The patient appeared to be improved Vital signs as documented. Head exam is normocephalic atraumatic Neck is without JVD, thyromegaly, or carotid bruits. Lungs are diminished and has basilar rales Cardiac exam, Rhythm is regular.. hunter consistent with as Abdominal exam reveals normal bowel sounds, soft non tender, no masses Extremities are nonedematous and both pedal pulses are present Neurologic exam is alert and oriented, no focal loss of strength or sensation Skin is without bruises or rashes Psychologically is without concerns for anxiety or depression.. Results & Data Results & Data ([facility]) Vital Signs (Past 12 Hours) Vital Signs Temp Pulse Resp BP Pulse Ox O2 Del Method O2 Flow Rate 02/10/22 16:57 98.2 F 68 18 136/68 96 Room Air 02/10/22 13:28 89 18 94 Nasal Cannula 2 02/10/22 12:27 98.2 F 76 18 128/55 L 95 Room Air 02/10/22 08:01 97.7 F 75 18 122/69 97 Room Air 02/10/22 07:31 69 18 99 Room Air PG Care Time/CCT Total # of Minutes Spent Total Time Spent with Patient: Total time spent is greater than 50% in coordination of care (as documented) at patient's floor/unit and/or counseling patient: Coding Level of Care Code 02153 Subseq Hosp Care Lvl 3 Diagnoses Acute respiratory failure with hypoxia J96.01 COVID-19 U07.1 Elevated troponin R77.8 Severe aortic stenosis I35.0 Pulmonary hypertension I27.20 Mixed restrictive and obstructive lung disease J43.9; J98.4 Diabetes E11.9 CKD (chronic kidney disease) N18.9 CAD (coronary artery disease) I25.10 Anemia D64.9 Hypertension I10 Dyslipidemia E78.5 Pulmonary nodule R91.1 GERD (gastroesophageal reflux disease) K21.9
[2022-02-10] MEDS: SIMVASTATIN 20 MG TAB PO SCH (20:20)
[2022-02-11] MEDS: ALBUT/IPRATROP 3MG/0.5MG NEB 3 ML VIAL INH SCH ×2 (01:53→07:12)
[2022-02-11 07:40] LABS: Hematocrit (blood only) 33.9 % (40.1-51.0); Hemoglobin 10.6 g/dl (14.0-18.0); Mean Corpuscular Hemoglobin 28.2 pg (25.0-34.0); Mean Corpuscular Hgb Conc 31.3 g/dL (32.0-36.0); Mean Corpuscular Volume 90.2 fL (80.0-100.0); Mean Platelet Volume 10.4 fL (9.4-12.4); Platelet Count 336 K/uL (130-400); RDW Coefficient of Variation 14.6 % (11.5-14.5); Red Blood Count 3.76 M/uL (4.63-6.08); White Blood Count 11.42 K/ul (4.8-10.8)
[2022-02-11] MEDS ORDERED: INSULIN HUMAN NPH SC SCH (08:00)
[2022-02-11] MEDS: ASPIRIN 81 MG ECTAB PO SCH (08:13)
[2022-02-11] MEDS: dexAMETHasone 6 MG in SYRINGE 0 ML IV SCH (08:13)
[2022-02-11] MEDS: FERROUS SULFATE 325 MG TAB PO SCH (08:14)
[2022-02-11] MEDS: ENOXAPARIN INJ 30 MG/0.3 ML SYR SQ SCH (08:14)
[2022-02-11] MEDS: FUROSEMIDE 40 MG TAB PO SCH (08:14)
[2022-02-11] MEDS: GABAPENTIN 100 MG CAP PO SCH (08:15)
[2022-02-11] MEDS: guaiFENesin 600 MG TABCR PO SCH (08:15)
[2022-02-11] MEDS: ISOSORBIDE MONO EXTENDED REL 60 MG TABCR PO SCH (08:15)
[2022-02-11 08:16] LABS: Albumin Level 3.7 gm/dl (3.4-5.0); BUN Creatinine Ratio 31.6 (10-20); Bilirubin Direct 0.1 mg/dl (0-0.2); Bilirubin,Total 0.4 mg/dl (0.2-1.0); Calcium 8.5 mg/dl (8.5-10.1); Creatinine Clr Calc Pharmacy 40.9 ml/min; Est GFR (African American) 42.3 ml/min; Est GFR (Non-African American) 36.5 ml/min; Potassium 3.9 mmol/L (3.5-5.1); Total Protein 6.7 gm/dl (6.0-8.3)
[2022-02-11] MEDS: PANTOprazole 40 MG TAB PO SCH (08:16)
[2022-02-11] MEDS: METOPROLOL TARTRATE 50 MG TAB PO SCH (08:16)
[2022-02-11] MEDS: UMECLIDINIUM/VILANTEROL 62.5/25MCG 7 PUFFS/INHALER INH SCH (08:17)
[2022-02-11] MEDS: POTASSIUM CHLORIDE CRTAB 20 MEQ TABCR PO SCH (08:17)
[2022-02-11] MEDS: INSULIN ASPART PER UNIT SC SCH ×3 (08:37→16:57)
[2022-02-11] MEDS ORDERED: ALBUT/IPRATROP 3MG/0.5MG NEB 3 ML VIAL NEB PRN (11:26)
[2022-02-11] MEDS: REMDESIVIR 100mg: Days 2-5 IV SCH (11:48)
[2022-02-11] MEDS: INSULIN HUMAN NPH SC SCH (16:58)
== END 2022-02-11 18:08 | disposition home or self-care (01) | DRG 177 ==
LOC: ED 23:07 → SUATTDRO 02-08 03:40 → 2S 02-08 03:40

== ENCOUNTER 2022-03-01 09:12 | Inpatient (IN) ==
[2022-03-01] MEDS ORDERED: NITROGLYCERIN 2% OINTMENT 30GM TUBE EXT ONE (09:31)
[2022-03-01] MEDS ORDERED: FUROSEMIDE 40 MG/4 ML VIAL IV STA (09:34)
[2022-03-01 09:40] LABS: Basophils # (auto) 0.06 K/uL (0-0.2); Basophils % (auto) 0.4 %; Eosinophils # (auto) 0.23 K/uL (0-0.50); Eosinophils % (auto) 1.7 %; Hemoglobin 10.8 g/dl (14.0-18.0); Immature Granulocytes # (auto) 0.07 K/uL (0.00-0.02); Immature Granulocytes % (auto) 0.5 %; Lymphocytes # (auto) 1.88 K/uL (1.2-3.4); Mean Corpuscular Hemoglobin 27.5 pg (25.0-34.0); Mean Corpuscular Hgb Conc 30.9 g/dL (32.0-36.0); Mean Corpuscular Volume 89.1 fL (80.0-100.0); Mean Platelet Volume 10.6 fL (9.4-12.4); Monocytes # (auto) 0.83 K/uL (0.24-0.82); Monocytes % (auto) 6.2 %; Neutrophils # (auto) 10.32 K/uL (1.4-6.5); Neutrophils % (auto) 77.2 %; Platelet Count 304 K/uL (130-400); RDW Standard Deviation 49.2 fL (36.4-46.3); Red Blood Count 3.93 M/uL (4.63-6.08); White Blood Count 13.39 K/ul (4.8-10.8)
--- NOTE | 2022-03-01 09:45 | XRay Report ---
XR chest 1V portable HISTORY: 81 years-old Male Dyspnea acute shortness of breath COMPARISON: Chest radiograph 02/10/2022 TECHNIQUE: Portable AP view of the chest FINDINGS: Cardiac silhouette is enlarged. Surgical clips of the left hilum. Pulmonary vascular congestion with reticular interstitial opacities. No pneumothorax. Small right and small moderate left pleural effusi ons. Left lung base predominant consolidation. Chronic left-sided rib deformities. Degenerative goodwin es of the shoulders and spine. IMPRESSION: 1. Cardiomegaly with pulmonary edema. 2. Small right with small to moderate left pleural effusions. 3. Left basilar predominant consolidation suggestive of atelectasis versus pneumonia. ACT 112: Negative or not required by law. The above report was generated using voice recognition software. It may contain grammatical, syntax o r spelling errors. Electronically signed by: Julien Dorado M.D. 03/01/2022 9:44 AM
[2022-03-01] MEDS ORDERED: dexAMETHasone**PF** 10 MG/ML VIAL IV ONE (09:50)
[2022-03-01] MEDS ORDERED: ALBUT/IPRATROP 3MG/0.5MG NEB 3 ML VIAL NEB ONE (09:50)
[2022-03-01 09:58] LABS: Partial Thromboplastin Time 26.8 Seconds (21.0-31.0); Prothrombin Time 10.3 Seconds (9.0-12.0)
[2022-03-01 10:02] LABS: Albumin Globulin Ratio 1.4 (0.9-2); Albumin Level 4.3 gm/dl (3.4-5.0); BUN Creatinine Ratio 18.7 (10-20); Bilirubin,Total 0.6 mg/dl (0.2-1.0); Calcium 8.9 mg/dl (8.5-10.1); Creatinine Clr Calc Pharmacy 36.8 ml/min; Est GFR (African American) 37.3 ml/min; Est GFR (Non-African American) 32.2 ml/min; Magnesium 2.2 mg/dl (1.7-2.4); Potassium 4.5 mmol/L (3.5-5.1); Total Protein 7.3 gm/dl (6.0-8.3)
--- NOTE | 2022-03-01 10:22 | History & Physical Report ---
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 Left basilar predominant consolidation suggestive of atelectasis versus superimposed pneumonia. TTE 10/2021 with severe , patient has refused TAVR in the past. With contribution to pulmonary edema and respiratory failure due to this TTE 02/08/2022: EF 55-60%, severe . Valve area 0.6 - Admit EKG: Sinus tachycardia, LVH. Borderline ST depression V5/V6, no ST segment elevations, rate 109, QTc 468 PFT 03/01/2022: FVC 44%, FEV1 46%, FEV1/FVC 103%. Consistent with moderate restrictive lung disease and air trapping. Insignificant bronchodilator response Creatinine baseline appears 1.461.65, elevated on admission to 1.93 - BiPAP continuous, qHS/PRN once improved. Goal SpO2 >89% BSG 296 Leukocytosis to 13 Hemoglobin 10.8 VBG pending -CT-C pending Lasix 40mg BID17 IV; Patient with severe , will have some degree of preload dependence follow closely for signs of overdiuresis - Recently discharged 02/11/2022 after an admission for respiratory failure with hypoxia multifactorial with severe aortic stenosis, COVID-19, and suspected superimposed heart failure hs-trop 53.0, prior troponin 02/08 downtrending to 866 at that time Troponin trended Patient previously had declined referral for TAVR, he reports that while he would not want heroic measures including CPR/intubation and remains DNR/DNI he is aware that he is likely to have recurrent admissions due to the severity of his aortic stenosis. Does not wish to pursue comfort measures at this time. At this time he would like to at least have a referral for TAVR evaluation, and notes that if this something they are not able to do then he would be okay with that and would consider more comfort oriented goals at that time. Notes that he was scheduled for follow-up to discuss TAVR with Dr. Garland this month. Cardiology consulted for assistance with CHF/AMS given patient's food sensitivity with preload dependence and change in goals to pursue TAVR DM A1c this month <7%, well controlled Goal BSG 997413 Hold home Trulicity [employer] SCI[employer]IST On 7525 60 units every afternoon, 95 units every morning at home Based on TDD basal insulin 27 twice daily, CF 15, carb ratio 5 While on BiPAP/not eating, will temporarily reduce basal to 20 units A1c this month 6.3% well-controlled given initial steroid treatment, hyperglycemia, and high requirements will consult pharmacy for additional management Hx COVID-19 COVID symptoms began 02/03/2022 COVID-positive on admission 02/08/2022 Received Decadron x10-day course with 12 mg IV and remdesivir on past admit Patient clinically improved from COVID, current symptoms appear more consistent with CHF onset by potential high salt load and AAS Received dexamethasone in ER, no wheezing on exam Will defer additional steroids at this time and follow. If underlying post- covid inflammation suspected + course of dex 6mg BID Severe aortic stenosis As above, patient reports he is considering TAVR at this time Pulmonary hypertension With severe aortic stenosis, CHF Fluid management as above, PPV as above Predominantly restrictive lung disease, history of obstructive component BPV as above Continue Anoro/equivalent conversion DuoNebs as needed Flutter valve, incentive spirometry No wheezing, suspect predominantly fluid overload. We will follow if signs of COPD exacerbation or superimposed pneumonia will treat accordingly CAD Continue aspirin 81 mg daily Continue Imdur Patient with chest pain with shortness of breath prior to admission, denies any clinical chest pain at bedside and reports his breathing feels greatly improved following diuresis. Suspect demand Troponin trended, cards consulted as above, heparinization deferred at this time Chronic anemia Normocytic chronic anemia with CKD Continue home iron - No indication for xfusion at this time Hypertension On Lopressor HCTZ/triamterene held due to DEBORA HLD Continue statin Pulmonary nodule Follows with pulmonary, repeat CT scan pending as outpatient DVT prophylaxis: Heparin with DEBORA Diet: Heart healthy/DM/low-sodium once able to be off BiPAP Disposition: PCU CODE STATUS: DNR/DNI, confirmed with patient about (2) Acute respiratory failure with hypoxia: (3) CAD (coronary artery disease): (4) CHF exacerbation: (5) Acute kidney injury superimposed on CKD: (6) Diabetes: (7) Dyslipidemia: (8) Elevated troponin: (9) Gastro-esophageal reflux: (10) GERD (gastroesophageal reflux disease): (11) High cholesterol: (12) History of lobectomy of lung: (13) Hypertension: (14) Obstructive sleep apnea syndrome: (15) Primary adenocarcinoma of upper lobe of left lung: (16) Pulmonary hypertension: (17) S/P lobectomy of lung: (18) Anemia: (19) Valvular disease: History of Present Illness Primary Care Provider: Mili Barnes MD Juancho Castle is a 81-year-old male with a past medical history of GERD, COVID, CAD, CHF, CKD, anemia, COPD, hyperlipidemia, 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 Hx , CAD, COPD, CKD Cr 1.9 40mg of lasix enroute + 40mg of lasix in ER Nitro paste, BP 130/88 ST depressions nonterritorial CXR looks like HF Per patient history Endorses shortness of breath for 2 to 3 days, which suddenly worsened this morning. Endorses that he had salted cheese and crackers with cheese yesterday "Dont wan tto be here every 2-3 months, what the devil might try the TAVR after all." Slight chest pain this morning, none at [facility] e[facility] provider assessment When he does get chest pain goes across his chest in a band. Breathing 'way better now than this morning.' Has been sleeping sitting up in a chair, does endorse orthopnea at baseline and worsened recently Urination decreased last 2 days, usually pees a full bottle Minimal cough, nonproductive. Denies fevers, chills, sweats. Reports his noted his lungs sounded coarse Uses inspiratory spirometer at home, has been doign worse with it x2 days uses flutter valve at home, works 'OK; Medical History: Reviewed Medications: Reviewed. Did not take medications this morning Surgical History: Reviewed Allergies: Reviewed. Hives to sulfa Social History: Reviewed Code Status: DNR/DNI, confirmed with patient at bedside Allergies Allergy/AdvReac Type Severity Reaction Status Date / Time sulfamethoxazole Allergy Hives Verified 02/17/22 13:23 [From Bactrim] trimethoprim [From Bactrim] Allergy Hives Verified 02/17/22 13:23 Home Medications Medication Instructions Recorded Confirmed Type aspirin 81 mg tablet,delayed 81 mg PO BID 04/25/18 02/17/22 History release coenzyme Q10 100 mg capsule 200 mg PO QAM 04/25/18 02/17/22 History (CoQ-10) metoprolol tartrate 50 mg tablet 50 mg PO BID 04/25/18 02/17/22 History multivitamin 1 tab PO QAM 04/25/18 02/17/22 History omeprazole magnesium 20 mg 20 mg PO QAM 04/25/18 02/17/22 History tablet,delayed release (Prilosec OTC) simvastatin 20 mg tablet 20 mg PO HS 04/25/18 02/17/22 History triamterene 37.5 1 tab PO QAM 04/25/18 02/17/22 History mg-hydrochlorothiazide 25 mg tablet guaifenesin 1,200 mg tablet, 1,200 mg PO BID 04/27/19 02/17/22 History extended release 12 hr (Mucinex) CPAP Machine #1 ea 07/17/19 02/17/22 Rx ferrous sulfate 324 mg (65 mg 324 mg PO DAILY 07/17/19 02/17/22 History iron) tablet,delayed release insulin lispro protamine-lispro 60 unit subcut QPM 03/20/20 02/17/22 History 100 unit/mL (75-25) subcutaneous susp (Humalog Mix 75-25(U-100)Insuln) insulin lispro protamine-lispro 95 unit subcut QAM 03/20/20 02/17/22 History 100 unit/mL (75-25) subcutaneous susp (Humalog Mix 75-25(U-100)Insuln) CPAP Supplies #1 ea 05/23/20 02/17/22 Rx nebulizers (Aeroneb Go Nebulizer) #1 ea 05/23/20 02/17/22 Rx Flutter Valve #1 ea 05/24/20 02/17/22 Rx dulaglutide 0.75 mg/0.5 mL 0.75 mg subcut .weekly 11/08/20 02/17/22 History subcutaneous pen injector (Trulicity) ipratropium 0.5 mg-albuterol 3 mg 3 ml inhalation Q8H PRN shortness 11/25/20 02/17/22 Rx (2.5 mg base)/3 mL nebulization of breath or wheezing #270 mL soln fluticasone propionate 50 1 spray intranasal DAILY #9.9 grams 03/24/21 02/17/22 Rx mcg/actuation nasal spray,suspension (Allergy Relief (fluticasone)) astragalus root 470 mg capsule 470 mg PO DAILY 11/08/21 02/17/22 History isosorbide mononitrate 60 mg 60 mg PO DAILY 11/08/21 02/17/22 History tablet,extended release 24 hr umeclidinium 62.5 mcg-vilanterol 1 inh inhalation DAILY #60 ea 11/13/21 02/17/22 Rx 25 mcg/actuation powdr for inhalation (Anoro Ellipta) gabapentin 100 mg capsule 100 mg PO BID #30 caps 11/20/21 02/17/22 Rx furosemide 40 mg tablet 40 mg PO Q OTHER DAY 01/14/22 02/17/22 History potassium chloride 10 mEq 20 meq PO .COMPLEX 01/14/22 02/17/22 History capsule,extended release Past Med/Surg History Medical History Abnormal stress echo Anemia CAD (coronary artery disease) NON-OBSTRUCTIVE Cholelithiasis CKD (chronic kidney disease) baseline creatinine 1.6 Diabetes Diabetes mellitus, type 2 IDDM, +B/L FEET NEUROPATHY Dyspnea on exertion Gastro-esophageal reflux GERD (gastroesophageal reflux disease) Hearing deficit wears hearing aids Hiatal hernia High cholesterol Hyperlipidemia Hypertension Hypertension Impacted cerumen of left ear Lip ulcer Lung cancer Discharge summary dated 04/06/[address] Mari: HOSPITAL COURSE: This is a very nice 77-year-old male who was found to have a mass. It certainly appeared to be a carcinoma in the left upper lobe. We worked him up and felt he would be a candidate for a resection. Upon opening the lung, getting into the patient's chest with our robotic thoracoscopic resection on 03/30/2018, I was quite pleased. We took down the fissure quite nicely, took down all of the arterial branches but one and had the vein isolated as well as the bronchus and the patient had a tear of this remaining artery. We controlled this, we had to open the chest. We eventually got control and I repaired this primarily. The patient was extubated later that day. We had a significant blood loss. The patient was transfused. He also had a creatinine of 1.71 preop. This went as high as 3 in the subsequent days, but then came back down. He looked very good the day after surgery. He was requiring no oxygen and was eating a regular diet. We had some drainage from the chest tubes. We kept it in for a few days. There was no evidence of bleeding. Frankly I was quite pleased with him. He was ambulating in the hallway. He was moving his bowels, although he required some cathartics. Hemoglobin settled down in the low 8. We left it there after used 4 units total of blood. Creatinine came back down. He was making excellent urine. Creatinine was 2.51 the day before discharge. His incisions were all clean. We removed his chest tube after he had a small pneumothorax, a small amount of fluid and on 04/05/2018, I performed an aspiration of this and his pneumothorax had resolved. I was quite happy with this. The following day, I did not really see much of pneumothorax. He had a bit more fluid, but he was on room air, ambulating and I think it is best for him to go home. 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 I told her to call me directly should there be any issues. Quite frankly, I was quite pleased with him. His incisions were clean. He had very little in the way of pain. We did send him home on tramadol and told to resume his regular medications. I will see him back in the office next week. 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 Robotic L VATS converted to open procedure. Glidescope assisted PERFECTO insertion. During surgery there was significant bleeding from the pulmonary artery which forced a change to an open thoracotomy and was difficult to control. Fluids were given followed by blood and between the blood loss and manipulation in the chest there were some brief times when the eros was showing very little pulse. His CO2 tracing dropped but never went to nothing. Along with the fluids he did receive 0.5mg epi and 2 units of vasopressin in addition to occasional small doses of ephedrine and phenylephrine. Blood loss was controlled and his vitals stabilized for the rest of the case. At the end of the procedure, we changed to a single lumen ETT and Dr Mari did a bronchoscopy which showed a little blood in the bronchi but basically clear. He is making urine, his vitals are stable, we are leaving him on the ventilator for the mean time to allow him to wake and make sure he is not acidotic. Labs and chest film are being done now - report to ICU MD. Valvular disease Mild aortic stenosis per 2016 stress test Surgical History History of cardiac cath 2016- NO STENTS [facility] History of cholecystectomy 11/22/2014. DL x2. Glidescope #3 by MDA and 7.5 ETT inserted. Grade 3 view. History of colonoscopy History of lobectomy of lung left upper lobe 03/30/2018 [facility] S/P lobectomy of lung Family History Father Cardiac disorder Other No family history of bleeding disorder Social History Smoking Status: Unknown if ever smoked Tobacco Type: Cigarettes and Smokeless Tobacco (Dip or Chew) Second Hand Exposure: No; Hx Alcohol Use: No Hx Substance Use: No Preferred Language: Belarusian Communication Ability: Effective Visual Impairment: No Limitations Blister Packing Machine Tender Required: No Beliefs That Will Affect Care: None marital status: Current Living Situation: Spouse Feels Safe at Home: Yes Assistive Devices: Cane and Walker Review of Systems Review of Systems: All systems reviewed & are unremarkable except as noted in Subjective Physical Exam Physical Exam: General: A&Ox3. NAD. Cooperative. HEENT: Atraumatic, normocephalic. Vision/Hearing intact Pulm: Diffusely coarse, rales in the bases bilaterally with diminished basilar sounds and diminished sounds in left upper lobe, no inspiratory/expiratory wheezes appreciated. On BiPAP, appears comfortable at assessment Cardiac: Regular, soft systolic murmur with radiation to carotid, radial pulses intact and symmetrical. JVD is present just above the clavicle Abdominal: Nontender, nondistended, soft. BS present. Remedies: Warm, dry. +KENIA. Sensation of soft touch intact in hands and feet without deficit, ankle dorsiflexion/plantarflexion and animal assistant strength intact Results & Data Results & Data ([facility]) Vital Signs (Past 12 Hours) Vital Signs Pulse Resp BP Pulse Ox O2 Del Method FiO2 03/01/22 09:31 105 H 31 H 100 40 03/01/22 09:25 108 H 30 H 129/88 100 CPAP PG Care Time/CCT Total # of Minutes Spent Total Time Spent with Patient: Total time spent is greater than 50% in coordination of care (as documented) at patient's floor/unit and/or counseling patient: Coding Level of Care Code 76539 Initial Inpt Care Lvl 3 Diagnoses Heart failure with preserved ejection fraction I50.30 Acute respiratory failure with hypoxia J96.01 CAD (coronary artery disease) I25.10 CHF exacerbation I50.9 Acute kidney injury superimposed on CKD N17.9; N18.9 Diabetes E11.9 Dyslipidemia E78.5 Elevated troponin R77.8 Gastro-esophageal reflux K21.9 GERD (gastroesophageal reflux disease) K21.9 High cholesterol E78.00 History of lobectomy of lung Z90.2 Hypertension I10 Obstructive sleep apnea syndrome G47.33 Primary adenocarcinoma of upper lobe of left lung C34.12 Pulmonary hypertension I27.20 S/P lobectomy of lung Z90.2 Anemia D64.9 Valvular disease I38
[2022-03-01 10:52] LABS: Appearance Urine Clear (Clear); Bacteria Urine Automated Negative (Negative); Bilirubin Urine Negative (Negative); Blood Urine Negative (Negative); Color Urine Yellow; Glucose Urine UA 1+ (Negative); Ketones Urine Trace (Negative); Leukocyte Esterase Urine Trace (Negative); Nitrite Urine Negative (Negative); Protein Urine Trace (Negative); RBC Urine Automated 0-4 /hpf (0-4); Urobilinogen Urine Negative (Negative)
[2022-03-01] MEDS ORDERED: LANTUS PER UNIT CHARGE SQ ONE ×2 (11:15→13:45)
[2022-03-01] MEDS ORDERED: NovoLIN-R INSULIN PER UNIT CHARGE IV STA (11:15)
[2022-03-01 11:18] LABS: Base Excess VBG 3.1 mEq/L; HCO3 VBG 30 mmol/L; Oxygen Saturation VBG < 60.0 %; PCO2 VBG 56 mmHg (38-50); PO2 VBG 25 mmHg; pH VBG 7.34 (7.36-7.41)
--- NOTE | 2022-03-01 11:43 | CT Scan Report ---
CT chest diagnostic wo con CT DOSE: 611.85 mGy.cm CLINICAL HISTORY: 81 years-old Male with CHF +/- PNA, AHRF. Prior left upper lobectomy. Acute shortn ess of breath. COVID Positive. TECHNIQUE: Multiaxial CT images of the chest were performed without contrast. A dose lowering techni que was utilized adhering to the principles of ALARA. COMPARISON: CTA chest 02/08/2022 FINDINGS: The thyroid nodule or lymphadenopathy. Moderate cardiomegaly. No pericardial effusion. Exte nsive coronary artery calcifications. There is atherosclerosis of the thoracic aorta without aneurysm . Aberrant right subclavian artery. Small right greater than left pleural effusions. Bronchial wall thickening with mild bibasilar mucous plugging. Prior left upper lobectomy with persistent scarring in the left lung base. Asymmetric righ t greater than left pulmonary edema is similar to the prior study. Mild dependent consolidation of th e lung bases. No acute process of the imaged upper abdomen. Unremarkable soft tissues. Chronic left-s ided rib fractures. Degenerative changes of the spine and shoulders. Gynecomastia. IMPRESSION: 1. Cardiomegaly with asymmetric pulmonary edema. 2. Small pleural effusions with mild dependent bibasilar consolidation suggestive of atelectasis. Pne umonia considered less likely. 3. Prior left upper lobectomy. 4. Additional findings as above. ACT 112: Negative or not required by law. Electronically signed by: Julien Dorado M.D. 03/01/2022 11:41 AM
[2022-03-01] MEDS ORDERED: CARBOHYDRATES FOR HYPOGLYCEMIA PO PRN (11:48)
[2022-03-01] MEDS ORDERED: ACETAMINOPHEN 325 MG TAB PO PRN (11:48)
[2022-03-01] MEDS ORDERED: GLUCOSE 10 TAB/TUBE PO PRN (11:48)
[2022-03-01] MEDS ORDERED: POLYETHYLENE (MIRALAX) 17 GM PACK PO PRN (11:48)
[2022-03-01] MEDS ORDERED: GLUCAGON FOR INJ 1 MG VIAL SQ PRN (11:48)
[2022-03-01] MEDS ORDERED: DEXTROSE 50% 50 ML SYRINGE IV PRN (11:48)
[2022-03-01] MEDS ORDERED: GLUCOSE 40% GEL 15 GM TUBE PO PRN (11:48)
[2022-03-01] MEDS ORDERED: PHARMACY GLYCEMIC MGMT CONSULT PRN (11:48)
--- NOTE | 2022-03-01 12:55 | Electrocardiogram Report ---
Test Reason : Blood Pressure : / mmHG Vent. Rate : 109 BPM Atrial Rate : 109 BPM P-R Int : 166 ms QRS Dur : 096 ms QT Int : 348 ms P-R-T Axes : 043 011 -85 degrees QTc Int : 468 ms Poor data quality, interpretation may be adversely affected Sinus tachycardia Left atrial enlargement Left ventricular hypertrophy with repolarization abnormality Abnormal ECG When compared with ECG of 08-FEB-2022 02:26, No significant change was found Confirmed by Juan Manuel Santoro ([id number]) on 03/01/2022 12:54:54 PM Referred By: REFERRED SELF Confirmed By:Juan Manuel Santoro
[2022-03-01] MEDS: INSULIN ASPART PER UNIT SC SCH ×3 (13:42→21:06)
--- NOTE | 2022-03-01 14:17 | Pharmacy Report ---
Pharmacy Glycemic Short Note 2 - Date of Service March 01, 2022 - Glycemic Short BSG Results (Last 24 hours): 03/01/22 03/01/22 09:25 13:15 Glucose 296 H POC Glucose 289 H OUTPATIENT ANTIDIABETIC REGIMEN: * Humalog Mix 75/25: * 95 units SC every morning * 60 units SC every evening * Trulicity 0.75 mg SC every Wednesday * HbA1c = 6.3% (02/09/22) ASSESSMENT: * 81 yo M admitted today for shortness of breath secondary to heart failure exacerbation. Pharmacy has been consulted to assist with inpatient glycemic management. 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 Ordered a type 2 diabetic diet; however, is functionally NPO secondary to BiPAP use. Did receive 6 mg of IV dexamethasone in the ED. No further steroids have been ordered. * BSG was 289 mg/dL around lunchtime. Patient received 20 units of Lantus in the ED. * Basal and bolus insulin will be started utilizing previous admission data. Basal dose will be much lower than home doses secondary to patient functionally being NPO. During previous admission in January 2022, patient was switched to NPH prior to discharge to help transition back to home dose of Humalog Mix. Will consider this strategy again. PLAN FOR INPATIENT GLYCEMIC CONTROL: * Basal insulin * Lantus 20 units SC x 1 * Lantus 15 units SC BID (starting this evening) * Bolus insulin * NovoLog per scale ACHS or Q6hrs while NPO * Goal Range: Low 110 mg/dL - High 140 mg/dL * Correction Factor: 15 mg/dL/unit * Nutritional / Prandial insulin per carb ratio of 1 unit per 5 grams CHO consumed
[2022-03-01] MEDS: NITROGLYCERIN 2% OINTMENT 30GM TUBE EXT SCH ×3 (16:04→23:38)
[2022-03-01] MEDS: FUROSEMIDE 40 MG/4 ML VIAL IV SCH (16:49)
--- NOTE | 2022-03-01 17:13 | Emergency Department Note ---
Impression & Plan Respiratory failure with hypoxia, COVID-19, Troponin level elevated, CHF (congestive heart failure) ED Provider Note CHIEF COMPLAINT: Shortness of breath HISTORY OF PRESENT ILLNESS: This 81 yo male patient presents via ALS on CPAP to the emergency department with c/o SOB. Pt is awaiting an aortic valve replacement. His mentioned to EMS that he is retaining fluid. Patient states he is feeling somewhat improved on the BiPAP after being found at 53% on room air at home. Patient is noted to be somewhat diaphoretic. He does have a history of coronary artery disease and CHF. Patient denies any chest pain. He states he does take multiple medications including Lasix. He does have a history of kidney disease. He denies any known recent COVID exposures or fevers but has felt sweaty and chilled. REVIEW OF SYSTEMS: A review of systems was performed with positives and pertinen t negatives listed in the history of present illness. 10 systems were reviewed and are otherwise negative. ALLERGIES: see below MEDICATIONS: see below PMH: see below SOCIAL HISTORY: see below DDx: Reactive airway disease, pneumonia, pneumothorax, COPD, CHF, infections, cardiac ischemia, pulmonary embolism, musculoskeletal, gastrointestinal, as well as other pathologies. PHYSICAL EXAM: Vital signs reviewed. General: Chronically ill-appearing 81-year-old male, in some respiratory disc omfort. On BiPAP HEENT: No scleral icterus, PERRLA, neck supple. Atraumatic. Cardiovascular: Tachycardic, no extra sounds. Systolic ejection murmur Pulmonary: Coarse breath sounds auscultation bilaterally, increased work of breathing with mask in place. Abdomen: Soft, obese, nontender, nondistended, positive bowel sounds. Musculoskeletal: Atraumatic, moderate peripheral edema. Neurologic: Patient awake alert and oriented x 3, speech is seemingly clear through the BiPAP. Patient is hard of hearing and conversation is minimal. He does follow simple commands. Skin: Warm, moist, no rash EMERGENCY DEPARTMENT COURSE/MDM: This patient was evaluated and appeared to be in no significant distress. IV access was obtained and laboratory work was drawn. The patient was placed on printer repair technician and was noted to be in a sinus tachycardia. Patient was on BiPAP and saturating well. Patient's chest x-ray is concerning for pulmonary edema and a left greater than right basilar consolidation that is consistent with atelectasis versus pneumonia. Patient's laboratory work reveals an elevated WBC at 13 with high-sensitivity troponin of 53. COVID is positive. Patient was given IV dexamethasone, DuoNeb treatment over 1 hour. He was given 40 mg of IV Lasix and 1 inch of Nitropaste to the a nterior chest wall. A Gallardo catheter was placed the patient began to diurese. He was able to be weaned off of BiPAP and onto nonrebreather. Case was discussed with the hospitalist service who will evaluate patient for admission and further management. MONITORING: An order for cardiac monitoring was placed and the patient is noted to be in a ST at 110 beats per minute. RADIOLOGY: see below EKG: Sinus tachycardia 109 bpm. Poor quality baseline for interpretation, QTC is 468. No PVC, no PAC. LVH with left atrial enlargement. ST segments are depressed in the lateral leads. DISPOSITION: Admission I have personally spent 35 minutes of critical care time in the direct management of this patient. This was a life/limb threatening event. This 35 minutes is in excess of all separately billable procedures. Past Med/Surg History Medical History Abnormal stress echo Anemia CAD (coronary artery disease) NON-OBSTRUCTIVE Cholelithiasis CKD (chronic kidney disease) baseline creatinine 1.6 Diabetes Diabetes mellitus, type 2 IDDM, +B/L FEET NEUROPATHY Dyspnea on exertion Gastro-esophageal reflux GERD (gastroesophageal reflux disease) Hearing deficit wears hearing aids Heart failure with preserved ejection fraction Hiatal hernia High cholesterol Hyperlipidemia Hypertension Hypertension Impacted cerumen of left ear Lip ulcer Lung cancer Discharge summary dated 04/06/[address] Mari: HOSPITAL COURSE: This is a very nice 77-year-old male who was found to have a mass. It certainly appeared to be a carcinoma in the left upper lobe. We worked him up and felt he would be a candidate for a resection. Upon opening the lung, getting into the patient's chest with our robotic thoracoscopic resection on 03/30/2018, I was quite pleased. We took down the fissure quite nicely, took down all of the arterial branches but one and had the vein isolated as well as the bronchus and the patient had a tear of this remaining artery. We controlled this, we had to open the chest. We eventually got control and I repaired this primarily. The patient was extubated later that day. We had a significant blood loss. The patient was transfused. He also had a creatinine of 1.71 preop. This went as high as 3 in the subsequent days, but then came back down. He looked very good the day after surgery. He was requiring no oxygen and was eating a regular diet. We had some drainage from the chest tubes. We kept it in for a few days. There was no evidence of bleeding. Frankly I was quite pleased with him. He was ambulating in the hallway. He was moving his bowels, although he required some cathartics. Hemoglobin settled down in the low 8. We left it there after used 4 units total of blood. Creatinine came back down. He was making excellent urine. Creatinine was 2.51 the day before discharge. His incisions were all clean. We removed his chest tube after he had a small pneumothorax, a small amount of fluid and on 04/05/2018, I performed an aspiration of this and his pneumothorax had resolved. I was quite happy with this. The following day, I did not really see much of pneumothorax. He had a bit more fluid, but he was on room air, ambulating and I think it is best for him to go home. 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 I told her to call me directly should there be any issues. Quite frankly, I was quite pleased with him. His incisions were clean. He had very little in the way of pain. We did send him home on tramadol and told to resume his regular medications. I will see him back in the office next week. 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 Robotic L VATS converted to open procedure. Glidescope assisted PERFECTO insertion. During surgery there was significant bleeding from the pulmonary artery which forced a change to an open thoracotomy and was difficult to control. Fluids were given followed by blood and between the blood loss and manipulation in the chest there were some brief times when the eros was showing very little pulse. His CO2 tracing dropped but never went to nothing. Along with the fluids he did receive 0.5mg epi and 2 units of vasopressin in addition to occasional small doses of ephedrine and phenylephrine. Blood loss was controlled and his vitals stabilized for the rest of the case. At the end of the procedure, we changed to a single lumen ETT and Dr Mari did a bronchoscopy which showed a little blood in the bronchi but basically clear. He is making urine, his vitals are stable, we are leaving him on the ventilator for the mean time to allow him to wake and make sure he is not acidotic. Labs and chest film are being done now - report to ICU MD. Surgical History History of cardiac cath [id number] NO STENTS [facility] 2021 no stents [facility] History of cholecystectomy 11/22/2014. DL x2. Glidescope #3 by ELIANA and 7.5 ETT inserted. Grade 3 view. History of colonoscopy History of lobectomy of lung left upper lobe 03/30/2018 [facility] S/P lobectomy of lung Family History Father Cardiac disorder Other No family history of bleeding disorder Social History Smoking Status: Light tobacco smoker Tobacco Type: Cigarettes and Smokeless Tobacco (Dip or Chew) Second Hand Exposure: No; Hx Alcohol Use: No Hx Substance Use: No Preferred Language: Arabic Communication Ability: Effective Visual Impairment: No Limitations Event Sales Representative Required: No Beliefs That Will Affect Care: None marital status: Current Living Situation: Spouse current occupational status: retired Feels Safe at Home: Yes Dental Care, Regularly: Yes Seatbelt Use: always Sunscreen Use: No Assistive Devices: Cane and Walker Allergies Allergies Allergy/AdvReac Type Severity Reaction Status Date / Time sulfamethoxazole Allergy Hives Verified 03/10/22 15:29 [From Bactrim] trimethoprim [From Bactrim] Allergy Hives Verified 03/10/22 15:29 Home Meds Home Medications Medication Instructions Recorded Confirmed aspirin 81 mg tablet,delayed 81 mg PO BID 04/25/18 03/10/22 release multivitamin 1 tab PO QAM 04/25/18 03/10/22 guaifenesin 1,200 mg tablet, 1,200 mg PO BID 04/27/19 03/10/22 extended release 12 hr (Mucinex) dulaglutide 0.75 mg/0.5 mL 0.75 mg subcut .weekly 11/08/20 03/10/22 subcutaneous pen injector (Trulicity) isosorbide mononitrate 60 mg 60 mg PO DAILY 11/08/21 03/10/22 tablet,extended release 24 hr potassium chloride 10 mEq 20 meq PO .COMPLEX 01/14/22 03/10/22 capsule,extended release insulin lispro protamine-lispro 50 unit subcut QPM 03/10/22 03/10/22 100 unit/mL (75-25) subcutaneous susp (Humalog Mix 75-25(U-100)Insuln) insulin lispro protamine-lispro 75 unit subcut QAM 03/10/22 03/10/22 100 unit/mL (75-25) subcutaneous susp (Humalog Mix 75-25(U-100)Insuln) Previous Rx's Medication Instructions Recorded CPAP Machine #1 ea 07/17/19 CPAP Supplies #1 ea 05/23/20 nebulizers (Aeroneb Go Nebulizer) #1 ea 05/23/20 Flutter Valve #1 ea 05/24/20 ipratropium 0.5 mg-albuterol 3 mg 3 ml inhalation Q8H PRN shortness 11/25/20 (2.5 mg base)/3 mL nebulization of breath or wheezing #270 mL soln fluticasone propionate 50 1 spray intranasal DAILY #9.9 grams 03/24/21 mcg/actuation nasal spray,suspension (Allergy Relief (fluticasone)) umeclidinium 62.5 mcg-vilanterol 1 inh inhalation DAILY #60 ea 11/13/21 25 mcg/actuation powdr for inhalation (Anoro Ellipta) ferrous sulfate 324 mg (65 mg 324 mg PO Q OTHER DAY #30 tabs 03/06/22 iron) tablet,delayed release furosemide 40 mg tablet 40 mg PO DAILY #30 tabs 03/06/22 pantoprazole 40 mg tablet,delayed 40 mg PO BID #60 tabs 03/06/22 release empagliflozin 10 mg tablet 10 mg PO DAILY #90 tabs 03/10/22 gabapentin 300 mg capsule 300 mg PO BID #180 caps 03/10/22 metoprolol succinate 100 mg 100 mg PO DAILY #90 tabs 03/10/22 tablet,extended release 24 hr rosuvastatin 40 mg tablet 40 mg PO DAILY #90 tabs 03/10/22 Results & Data (ED) Vital Signs Vital Signs - 24 hr 03/01/22 09:25 03/01/22 09:31 03/01/22 09:24 Pulse Rate 108 H 105 H Pulse Rate [Apical] Pulse Rate from SpO2 Sensor Respiratory Rate 30 H 31 H Respiratory Effort / Characteristics Nasal Flaring Retracting Short of Breath Spontaneous Labored Short of Breath SOB on Exertion Spontaneous Short of Breath Respiratory Depth Normal Respiratory Pattern Regular Tachypnea Rapid/Shallow See-Saw Tachypnea Blood Pressure 129/88 Blood Pressure Mean 101 Blood Pressure Position Sitting Pulse Oximetry 100 100 Oxygen Delivery Method CPAP BiPAP Fraction of Inspired Oxygen 40 Sepsis Recent Fever Within 48 Hours No Sepsis New/Unexplained Change in Mental Status N/A Sepsis Action Taken by Nursing Physician Notified 03/01/22 09:19 03/01/22 09:24 03/01/22 09:22 Pulse Rate 109 H Pulse Rate [Apical] Pulse Rate from SpO2 Sensor 109 H Respiratory Rate 30 H Respiratory Effort / Characteristics Respiratory Depth Respiratory Pattern Blood Pressure Blood Pressure Mean Blood Pressure Position Pulse Oximetry 100 Oxygen Delivery Method BiPAP BiPAP Fraction of Inspired Oxygen 40 Sepsis Recent Fever Within 48 Hours Sepsis New/Unexplained Change in Mental Status Sepsis Action Taken by Nursing 03/01/22 09:29 03/01/22 09:30 03/01/22 09:31 Pulse Rate 108 H 107 H Pulse Rate [Apical] Pulse Rate from SpO2 Sensor 108 H 108 H Respiratory Rate 29 H 29 H Respiratory Effort / Characteristics Respiratory Depth Respiratory Pattern Blood Pressure 149/73 H Blood Pressure Mean 98 Blood Pressure Position Pulse Oximetry 100 100 Oxygen Delivery Method Fraction of Inspired Oxygen Sepsis Recent Fever Within 48 Hours Sepsis New/Unexplained Change in Mental Status Sepsis Action Taken by Nursing 03/01/22 09:31 03/01/22 09:45 03/01/22 09:45 Pulse Rate 106 H 97 H Pulse Rate [Apical] Pulse Rate from SpO2 Sensor 106 H 96 H Respiratory Rate 28 H 26 H Respiratory Effort / Characteristics Respiratory Depth Respiratory Pattern Blood Pressure 154/75 H Blood Pressure Mean 101 Blood Pressure Position Pulse Oximetry 100 100 Oxygen Delivery Method Fraction of Inspired Oxygen Sepsis Recent Fever Within 48 Hours Sepsis New/Unexplained Change in Mental Status Sepsis Action Taken by Nursing 03/01/22 10:00 03/01/22 10:00 03/01/22 10:15 Pulse Rate 87 Pulse Rate [Apical] Pulse Rate from SpO2 Sensor 86 Respiratory Rate 24 Respiratory Effort / Characteristics Respiratory Depth Respiratory Pattern Blood Pressure 124/60 131/57 L Blood Pressure Mean 81 81 Blood Pressure Position Pulse Oximetry 98 Oxygen Delivery Method Fraction of Inspired Oxygen Sepsis Recent Fever Within 48 Hours Sepsis New/Unexplained Change in Mental Status Sepsis Action Taken by Nursing 03/01/22 10:15 03/01/22 10:21 03/01/22 10:30 Pulse Rate 85 Pulse Rate [Apical] 81 Pulse Rate from SpO2 Sensor 83 Respiratory Rate 20 19 Respiratory Effort / Characteristics Non-Labored Spontaneous Respiratory Depth Respiratory Pattern Blood Pressure 129/82 Blood Pressure Mean 97 Blood Pressure Position Pulse Oximetry 100 99 Oxygen Delivery Method BiPAP Fraction of Inspired Oxygen 30 Sepsis Recent Fever Within 48 Hours Sepsis New/Unexplained Change in Mental Status Sepsis Action Taken by Nursing 03/01/22 10:30 03/01/22 10:45 03/01/22 10:45 Pulse Rate 82 83 Pulse Rate [Apical] Pulse Rate from SpO2 Sensor 81 82 Respiratory Rate 23 24 Respiratory Effort / Characteristics Respiratory Depth Respiratory Pattern Blood Pressure 146/65 H Blood Pressure Mean 92 Blood Pressure Position Pulse Oximetry 100 100 Oxygen Delivery Method Fraction of Inspired Oxygen Sepsis Recent Fever Within 48 Hours Sepsis New/Unexplained Change in Mental Status Sepsis Action Taken by Nursing 03/01/22 11:00 03/01/22 11:00 03/01/22 11:15 Pulse Rate 75 Pulse Rate [Apical] Pulse Rate from SpO2 Sensor 74 Respiratory Rate 20 Respiratory Effort / Characteristics Respiratory Depth Respiratory Pattern Blood Pressure 120/57 L 112/49 L Blood Pressure Mean 78 70 Blood Pressure Position Pulse Oximetry 100 Oxygen Delivery Method Fraction of Inspired Oxygen Sepsis Recent Fever Within 48 Hours Sepsis New/Unexplained Change in Mental Status Sepsis Action Taken by Nursing 03/01/22 11:15 03/01/22 11:39 03/01/22 11:40 Pulse Rate 76 86 85 Pulse Rate [Apical] Pulse Rate from SpO2 Sensor 75 86 86 Respiratory Rate 17 33 H 22 Respiratory Effort / Characteristics Respiratory Depth Respiratory Pattern Blood Pressure Blood Pressure Mean Blood Pressure Position Pulse Oximetry 100 100 100 Oxygen Delivery Method Fraction of Inspired Oxygen Sepsis Recent Fever Within 48 Hours Sepsis New/Unexplained Change in Mental Status Sepsis Action Taken by Nursing 03/01/22 11:40 Pulse Rate Pulse Rate [Apical] Pulse Rate from SpO2 Sensor Respiratory Rate Respiratory Effort / Characteristics Respiratory Depth Respiratory Pattern Blood Pressure 130/63 Blood Pressure Mean 85 Blood Pressure Position Pulse Oximetry Oxygen Delivery Method Fraction of Inspired Oxygen Sepsis Recent Fever Within 48 Hours Sepsis New/Unexplained Change in Mental Status Sepsis Action Taken by Detention Medications Current Medication List: was personally reviewed by me Laboratory Data Attestation: I reviewed the patient's lab results. Result diagrams: 03/06/22 08:00 03/06/22 08:00 Lab Results 03/01/22 03/01/22 03/01/22 Range/Units 09:00 09:15 09:25 WBC 13.39 H (4.8-10.8) K/ul RBC 3.93 L (4.63-6.08) M/uL Hgb 10.8 L (14.0-18.0) g/dl Hct 35.0 L (40.1-51.0) % MCV 89.1 (80.0-100.0) fL MCH 27.5 (25.0-34.0) pg MCHC 30.9 L (32.0-36.0) g/dL RDW Std Deviation 49.2 H (36.4-46.3) fL RDW Coeff of Mac 15.0 H (11.5-14.5) % Plt Count 304 (130-400) K/uL MPV 10.6 (9.4-12.4) fL Immature Gran % (Auto) 0.5 % Neut % (Auto) 77.2 % Lymph % (Auto) 14.0 % Cavalier % (Auto) 6.2 % Eos % (Auto) 1.7 % Baso % (Auto) 0.4 % Neut # (Auto) 10.32 H (1.4-6.5) K/uL Lymph # (Auto) 1.88 (1.2-3.4) K/uL Cavalier # (Auto) 0.83 H (0.24-0.82) K/uL Eos # (Auto) 0.23 (0-0.50) K/uL Baso # (Auto) 0.06 (0-0.2) K/uL Immature Gran # (Auto) 0.07 H (0.00-0.02) K/uL PT (9.0-12.0) Seconds INR (0.9-1.1) APTT (21.0-31.0) Seconds PTT Ratio Sodium (136-145) mmol/L Potassium (3.5-5.1) mmol/L Chloride (98-107) mmol/L Carbon Dioxide (21-32) mmol/L Anion Gap (3-11) BUN (6-23) mg/dl Creatinine (0.6-1.4) mg/dl Est Cr Clr Drug Dosing ml/min Est GFR ( Amer) ml/min Est GFR (Non-Af Amer) ml/min BUN/Creatinine Ratio (10-20) Glucose (70-99(Fasting)) mg/dl Calcium (8.5-10.1) mg/dl Magnesium (1.7-2.4) mg/dl Total Bilirubin (0.2-1.0) mg/dl AST (13-39) U/L ALT (7-52) U/L Alkaline Phosphatase (34-104) U/L Troponin I High Sens (0-20) pg/ml Total Protein (6.0-8.3) gm/dl Albumin (3.4-5.0) gm/dl Globulin (2.5-4.0) gm/dl Albumin/Globulin Ratio (0.9-2) Urine Color Yellow Urine Appearance Clear (Clear) Urine pH 5.0 (4.5-7.5) Ur Specific Sullivan 1.020 (1.000-1.030) Urine Protein Trace H (Negative) Urine Glucose (UA) 1+ H (Negative) Urine Ketones Trace H (Negative) Urine Blood Negative (Negative) Urine Nitrite Negative (Negative) Urine Bilirubin Negative (Negative) Urine Urobilinogen Negative (Negative) Ur Leukocyte Esterase Trace H (Negative) Urine WBC (Auto) 1-5 (0-5) /hpf Urine RBC (Auto) 0-4 (0-4) /hpf U Hyaline Cast (Auto) 1-5 (0-5) /lpf U Epithel Cells (Auto) 10-20 H (0-5) /lpf Urine Bacteria (Auto) Negative (Negative) SARS-CoV-2, RNA, NAAT POSITIVE A* (NEGATIVE) 03/01/22 03/01/22 Range/Units 09:25 09:25 WBC (4.8-10.8) K/ul RBC (4.63-6.08) M/uL Hgb (14.0-18.0) g/dl Hct (40.1-51.0) % MCV (80.0-100.0) fL MCH (25.0-34.0) pg MCHC (32.0-36.0) g/dL RDW Std Deviation (36.4-46.3) fL RDW Coeff of Mac (11.5-14.5) % Plt Count (130-400) K/uL MPV (9.4-12.4) fL Immature Gran % (Auto) % Neut % (Auto) % Lymph % (Auto) % Cavalier % (Auto) % Eos % (Auto) % Baso % (Auto) % Neut # (Auto) (1.4-6.5) K/uL Lymph # (Auto) (1.2-3.4) K/uL Cavalier # (Auto) (0.24-0.82) K/uL Eos # (Auto) (0-0.50) K/uL Baso # (Auto) (0-0.2) K/uL Immature Gran # (Auto) (0.00-0.02) K/uL PT 10.3 (9.0-12.0) Seconds INR 1.0 (0.9-1.1) APTT 26.8 (21.0-31.0) Seconds PTT Ratio 1.0 Sodium 137 (136-145) mmol/L Potassium 4.5 (3.5-5.1) mmol/L Chloride 101 (98-107) mmol/L Carbon Dioxide 27 (21-32) mmol/L Anion Gap 9 (3-11) BUN 36 H (6-23) mg/dl Creatinine 1.93 H (0.6-1.4) mg/dl Est Cr Clr Drug Dosing 36.8 ml/min Est GFR ( Amer) 37.3 ml/min Est GFR (Non-Af Amer) 32.2 ml/min BUN/Creatinine Ratio 18.7 (10-20) Glucose 296 H (70-99(Fasting)) mg/dl Calcium 8.9 (8.5-10.1) mg/dl Magnesium 2.2 (1.7-2.4) mg/dl Total Bilirubin 0.6 (0.2-1.0) mg/dl AST 19 (13-39) U/L ALT 21 (7-52) U/L Alkaline Phosphatase 63 (34-104) U/L Troponin I High Sens 53.0 H* D (0-20) pg/ml Total Protein 7.3 (6.0-8.3) gm/dl Albumin 4.3 (3.4-5.0) gm/dl Globulin 3.0 (2.5-4.0) gm/dl Albumin/Globulin Ratio 1.4 (0.9-2) Urine Color Urine Appearance (Clear) Urine pH (4.5-7.5) Ur Specific Sullivan (1.000-1.030) Urine Protein (Negative) Urine Glucose (UA) (Negative) Urine Ketones (Negative) Urine Blood (Negative) Urine Nitrite (Negative) Urine Bilirubin (Negative) Urine Urobilinogen (Negative) Ur Leukocyte Esterase (Negative) Urine WBC (Auto) (0-5) /hpf Urine RBC (Auto) (0-4) /hpf U Hyaline Cast (Auto) (0-5) /lpf U Epithel Cells (Auto) (0-5) /lpf Urine Bacteria (Auto) (Negative) SARS-CoV-2, RNA, NAAT (NEGATIVE) Administered Medications Discontinued Medications Acetaminophen (Acetaminophen 325 Mg Tab) 650 mg PO Q4H PRN PRN Reason: Pain or Fever Stop: 03/31/22 11:47 Last Admin: 03/01/22 13:45 Dose: 650 mg Documented By: SER Albuterol (Albut/Ipratrop 3mg/0.5mg Neb 3 Ml Vial) 12 ml NEB ONE ONE; Protocol Stop: 03/01/22 09:51 Last Admin: 03/01/22 10:21 Dose: 12 ml Documented By: GARY Aspirin (Aspirin 81 Mg Ectab) 81 mg PO BID [facility] Stop: 03/31/22 20:59 Last Admin: 03/02/22 08:59 Dose: 81 mg Documented By: Admin: 03/01/22 21:01 Dose: 81 mg Documented By: ROB Aspirin (Aspirin 81 Mg Ectab) 81 mg PO DAILY [facility] Stop: 04/02/22 08:59 Last Admin: 03/06/22 08:10 Dose: 81 mg Documented By: Admin: 03/05/22 07:55 Dose: 81 mg Documented By: Admin: 03/04/22 08:16 Dose: 81 mg Documented By: Admin: 03/03/22 08:57 Dose: 81 mg Documented By: BO Dexamethasone Sodium Phosphate (DexamethasonePf 10 Mg/Ml Vial) 6 mg IV NOW ONE Stop: 03/01/22 09:51 Last Admin: 03/01/22 10:28 Dose: 6 mg Documented By: GEOFF Fentanyl Citrate (Fentanyl Citrate 100 Mcg/2 Ml Vial) Confirm Administered Dose 100 mcg .ROUTE .STK-MED ONE Stop: 03/03/22 12:13 Last Admin: 03/03/22 13:40 Dose: Not Given Documented By: BO Furosemide (Furosemide 40 Mg/4 Ml Vial) 40 mg IV NOW STA Stop: 03/01/22 09:35 Last Admin: 03/01/22 09:38 Dose: 40 mg Documented By: MELONY Furosemide (Furosemide 40 Mg/4 Ml Vial) 40 mg IV BID17 [facility] Stop: 03/31/22 16:59 Last Admin: 03/02/22 17:30 Dose: 40 mg Documented By: Admin: 03/02/22 08:58 Dose: 40 mg Documented By: Admin: 03/01/22 16:49 Dose: 40 mg Documented By: MARILY Furosemide (Furosemide 40 Mg Tab) 40 mg PO QAM [facility] Stop: 04/03/22 08:59 Last Admin: 03/06/22 08:10 Dose: 40 mg Documented By: Admin: 03/05/22 07:54 Dose: 40 mg Documented By: Admin: 03/04/22 08:16 Dose: 40 mg Documented By: TOBIAS Gabapentin (Gabapentin 100 Mg Cap) 100 mg PO BID [facility] Stop: 03/31/22 20:59 Last Admin: 03/06/22 08:10 Dose: 100 mg Documented By: Admin: 03/05/22 20:28 Dose: 100 mg Documented By: Admin: 03/05/22 07:56 Dose: 100 mg Documented By: Admin: 03/04/22 21:37 Dose: 100 mg Documented By: Admin: 03/04/22 08:17 Dose: 100 mg Documented By: Admin: 03/03/22 19:45 Dose: 100 mg Documented By: Admin: 03/03/22 08:56 Dose: 100 mg Documented By: Admin: 03/02/22 21:48 Dose: 100 mg Documented By: Admin: 03/02/22 08:59 Dose: 100 mg Documented By: Admin: 03/01/22 21:01 Dose: 100 mg Documented By: ROB Guaifenesin (Guaifenesin 600 Mg Tabcr) 1,200 mg PO BID [facility] Stop: 03/31/22 20:59 Last Admin: 03/06/22 08:10 Dose: 1,200 mg Documented By: Admin: 03/05/22 20:28 Dose: 1,200 mg Documented By: Admin: 03/05/22 07:55 Dose: 1,200 mg Documented By: Admin: 03/04/22 21:38 Dose: 1,200 mg Documented By: Admin: 03/04/22 08:17 Dose: 1,200 mg Documented By: Admin: 03/03/22 19:44 Dose: 1,200 mg Documented By: Admin: 03/03/22 08:56 Dose: 1,200 mg Documented By: Admin: 03/02/22 21:47 Dose: 1,200 mg Documented By: Admin: 03/02/22 08:59 Dose: 1,200 mg Documented By: Admin: 03/01/22 21:18 Dose: 1,200 mg Documented By: ROB Heparin Sodium (Porcine) (Heparin Sod 5,000 Unit/0.5 Ml Vial) 5,000 units SC Q8 [facility] Stop: 04/01/22 13:59 Last Admin: 03/02/22 21:46 Dose: 5,000 units Documented By: Admin: 03/02/22 12:58 Dose: 5,000 units Documented By: MARILY Heparin Sodium (Porcine) (Heparin (Porcine) 1000 Unit/Ml 10 Ml (Land Leasing Examiner Use Only)) Confirm Administered Dose 10,000 units .ROUTE .STK-MED ONE Stop: 03/03/22 12:13 Last Admin: 03/03/22 13:40 Dose: Not Given Documented By: BO Heparin Sodium/Sodium Chloride (Heparin In Nss Infusion 1000 Unit/500 Ml (2 U/Ml) Bag) Confirm Administered Dose 3,000 units IV .STK-MED ONE Stop: 03/03/22 12:13 Last Admin: 03/03/22 13:40 Dose: Not Given Documented By: BO Iron Sucrose 300 mg/ Sodium (Chloride) 265 mls @ 176.667 mls/hr IV TODAY ONE Stop: 03/04/22 10:29 Last Infusion: 03/04/22 10:12 Dose: 0 mls/hr Documented By: Admin: 03/04/22 08:24 Dose: 176.7 mls/hr Documented By: TOBIAS Pantoprazole Sodium 40 mg/ (Syringe) 10 mls @ 5 mls/min IV NOW ONE Stop: 03/04/22 12:01 Last Admin: 03/04/22 13:14 Dose: 5 mls/min Documented By: TOBIAS Insulin Aspart (Insulin Aspart Per Unit) 0 units SC ACHS [facility]; Protocol Stop: 03/31/22 11:47 Last Admin: 03/06/22 07:56 Dose: 10 units Documented By: PW Co-signed By: JOSELINE Admin: 03/05/22 20:27 Dose: Not Given Documented By: SUSANNE Co-signed By: MICHAEL Admin: 03/05/22 17:33 Dose: 5 units Documented By: TOBIAS Co-signed By: FATUMA Admin: 03/05/22 12:19 Dose: 5 units Documented By: TOBIAS Co-signed By: CHAN Admin: 03/05/22 08:01 Dose: 7 units Documented By: TOBIAS Co-signed By: BARBRA Admin: 03/04/22 21:22 Dose: Not Given Documented By: Admin: 03/04/22 17:56 Dose: 1 units Documented By: TOBIAS Co-signed By: Admin: 03/04/22 12:59 Dose: 3 units Documented By: TOBIAS Co-signed By: MARILY Admin: 03/04/22 08:18 Dose: 6 units Documented By: TOBIAS Co-signed By: Admin: 03/03/22 20:56 Dose: Not Given Documented By: Admin: 03/03/22 17:24 Dose: 13 units Documented By: BO Co-signed By: Admin: 03/03/22 11:20 Dose: Not Given Documented By: Admin: 03/03/22 07:48 Dose: Not Given Documented By: Admin: 03/02/22 20:50 Dose: Not Given Documented By: Admin: 03/02/22 17:15 Dose: 9 units Documented By: BO Co-signed By: VON Admin: 03/02/22 12:44 Dose: 10 units Documented By: MARILY Co-signed By: WILMAN Admin: 03/02/22 08:37 Dose: 12 units Documented By: MARILY Co-signed By: WILMAN Admin: 03/01/22 21:06 Dose: 10 units Documented By: ROB Co-signed By: TONA Admin: 03/01/22 17:36 Dose: 20 units Documented By: MARILY Co-signed By: Admin: 03/01/22 13:42 Dose: 10 units Documented By: SER Co-signed By: OADeric Insulin Glargine (Lantus Per Unit Charge) 15 units SQ BID [facility]; Protocol Stop: 03/31/22 20:59 Last Admin: 03/06/22 08:09 Dose: 15 units Documented By: ZACHARIAH Co-signed By: EMILIANO Admin: 03/05/22 20:27 Dose: 15 units Documented By: SUSANNE Co-signed By: MICHAEL Admin: 03/05/22 08:01 Dose: 15 units Documented By: TOBIAS Co-signed By: BARBRA Admin: 03/04/22 21:27 Dose: 15 units Documented By: JUAN Co-signed By: KIRILL Admin: 03/04/22 08:19 Dose: 15 units Documented By: TOBIAS Co-signed By: Admin: 03/03/22 21:08 Dose: 15 units Documented By: TELLY Co-signed By: RAIN Admin: 03/03/22 09:10 Dose: 15 units Documented By: BO Co-signed By: Admin: 03/02/22 21:49 Dose: 15 units Documented By: DORIS Co-signed By: JUAN Admin: 03/02/22 08:39 Dose: 15 units Documented By: MARILY Co-signed By: WILMAN Admin: 03/01/22 21:07 Dose: 15 units Documented By: ROB Co-signed By: TONA Insulin Glargine (Lantus Per Unit Charge) 20 units SQ ONE ONE Stop: 03/01/22 13:46 Last Admin: 03/01/22 13:43 Dose: 20 units Documented By: SER Co-signed By: OAM Isosorbide Mononitrate (Isosorbide Cavalier Extended Rel 60 Mg Tabcr) 60 mg PO DAILY SH[facility]ANU Stop: 04/01/22 11:59 Last Admin: 03/06/22 08:10 Dose: 60 mg Documented By: Admin: 03/05/22 07:55 Dose: 60 mg Documented By: Admin: 03/04/22 08:16 Dose: 60 mg Documented By: Admin: 03/03/22 08:56 Dose: 60 mg Documented By: Admin: 03/02/22 12:56 Dose: 60 mg Documented By: MARILY Metoprolol Tartrate (Metoprolol Tartrate 50 Mg Tab) 50 mg PO BID SH[facility]U Stop: 03/31/22 20:59 Last Admin: 03/06/22 08:10 Dose: 50 mg Documented By: Admin: 03/05/22 20:29 Dose: 50 mg Documented By: Admin: 03/05/22 07:55 Dose: 50 mg Documented By: Admin: 03/04/22 21:37 Dose: 50 mg Documented By: Admin: 03/04/22 08:15 Dose: 50 mg Documented By: Admin: 03/03/22 19:46 Dose: 50 mg Documented By: Admin: 03/03/22 08:57 Dose: 50 mg Documented By: Admin: 03/02/22 21:47 Dose: 50 mg Documented By: Admin: 03/02/22 08:59 Dose: 50 mg Documented By: Admin: 03/01/22 21:01 Dose: 50 mg Documented By: ROB Midazolam HCl (Midazolam Hcl 1 Mg/Ml 2ml Vial) Confirm Administered Dose 2 mg .ROUTE .STK-MED ONE Stop: 03/03/22 12:13 Last Admin: 03/03/22 13:40 Dose: Not Given Documented By: BO Nicardipine HCl (Nicardipine Hcl Inj 2.5 Mg/Ml 10 Ml Amp) Confirm Administered Dose 25 mg .ROUTE .STK-MED ONE Stop: 03/03/22 12:13 Last Admin: 03/03/22 13:40 Dose: Not Given Documented By: BO Nitroglycerin (Nitroglycerin 2% Ointment 30gm Tube) 1 inch EXT NOW ONE Stop: 03/01/22 09:32 Last Admin: 03/01/22 09:38 Dose: 1 inch Documented By: MELONY Nitroglycerin (Nitroglycerin 2% Ointment 30gm Tube) 1 inch EXT Q6 [facility] Stop: 03/31/22 11:59 Last Admin: 03/06/22 06:26 Dose: 1 inch Documented By: Admin: 03/06/22 00:30 Dose: 1 inch Documented By: Admin: 03/05/22 17:33 Dose: 1 inch Documented By: Admin: 03/05/22 12:21 Dose: 1 inch Documented By: Admin: 03/05/22 06:40 Dose: 1 inch Documented By: Admin: 03/05/22 00:09 Dose: 1 inch Documented By: Admin: 03/04/22 17:56 Dose: 1 inch Documented By: Admin: 03/04/22 13:14 Dose: 1 inch Documented By: Admin: 03/04/22 05:58 Dose: 1 inch Documented By: Admin: 03/04/22 00:26 Dose: 1 inch Documented By: Admin: 03/03/22 17:15 Dose: Not Given Documented By: Admin: 03/03/22 11:34 Dose: Not Given Documented By: Admin: 03/03/22 06:33 Dose: Not Given Documented By: Admin: 03/03/22 00:27 Dose: 1 inch Documented By: Admin: 03/02/22 17:33 Dose: Not Given Documented By: Admin: 03/02/22 12:56 Dose: 1 inch Documented By: Admin: 03/02/22 05:58 Dose: 1 inch Documented By: Admin: 03/01/22 23:38 Dose: 1 inch Documented By: Admin: 03/01/22 17:37 Dose: 1 inch Documented By: Admin: 03/01/22 16:04 Dose: Not Given Documented By: MARILY Nitroglycerin/Dextrose (Nitroglycerin/D5w 100mcg/Ml 20ml Syr) Confirm Administered Dose 2,000 mcg .ROUTE .STK-MED ONE Stop: 03/03/22 12:14 Last Admin: 03/03/22 13:40 Dose: Not Given Documented By: BO Pantoprazole Sodium (Pantoprazole 40 Mg Tab) 40 mg PO BID SH[facility]ANU Stop: 04/03/22 20:59 Last Admin: 03/06/22 08:10 Dose: 40 mg Documented By: Admin: 03/05/22 20:29 Dose: 40 mg Documented By: Admin: 03/05/22 07:54 Dose: 40 mg Documented By: Admin: 03/04/22 21:39 Dose: 40 mg Documented By: JUAN Potassium Chloride (Potassium Chloride Crtab 20 Meq Tabcr) 40 meq PO Q2D SH[facility]U Stop: 04/02/22 08:59 Last Admin: 03/05/22 08:05 Dose: 40 meq Documented By: Admin: 03/03/22 08:57 Dose: 40 meq Documented By: BO Simvastatin (Simvastatin 20 Mg Tab) 20 mg PO HS SHANTANU Stop: 03/31/22 20:59 Last Admin: 03/05/22 20:28 Dose: 20 mg Documented By: Admin: 03/04/22 21:39 Dose: 20 mg Documented By: Admin: 03/03/22 19:45 Dose: 20 mg Documented By: Admin: 03/02/22 21:47 Dose: 20 mg Documented By: Admin: 03/01/22 21:00 Dose: 20 mg Documented By: ROB Umeclidinium/Vilanterol (Umeclidinium/Vilanterol 62.5/25mcg 7 Puffs/Inhaler) 1 puffs INH DAILY SHANTANU Stop: 04/01/22 08:59 Last Admin: 03/06/22 08:09 Dose: 1 puffs Documented By: Admin: 03/05/22 07:56 Dose: 1 puffs Documented By: Admin: 03/04/22 08:17 Dose: 1 puffs Documented By: Admin: 03/03/22 08:58 Dose: 1 puffs Documented By: Admin: 03/02/22 08:59 Dose: 1 puffs Documented By: MARILY Imaging Data Radiologist's Impression: Chest X-Ray 03/01/22 09:19 XR chest 1V portable HISTORY: 81 years-old Male Dyspnea acute shortness of breath COMPARISON: Chest radiograph 02/10/2022 TECHNIQUE: Portable AP view of the chest FINDINGS: Cardiac silhouette is enlarged. Surgical clips of the left hilum. Pulmonary vascular congestion with reticular interstitial opacities. No pneumothorax. Small right and small moderate left pleural effusions. Left lung base predominant consolidation. Chronic left-sided rib deformities. Degenerative changes of the shoulders and spine. IMPRESSION: 1. Cardiomegaly with pulmonary edema. 2. Small right with small to moderate left pleural effusions. 3. Left basilar predominant consolidation suggestive of atelectasis versus pneumonia. ACT 112: Negative or not required by law. The above report was generated using voice recognition software. It may contain grammatical, syntax or spelling errors. Electronically signed by: Julien Dorado M.D. 03/01/2022 9:[address] 03/01/22 10:30 CT chest diagnostic wo con CT DOSE: 611.85 mGy.cm CLINICAL HISTORY: 81 years-old Male with CHF +/- PNA, AHRF. Prior left upper lobectomy. Acute shortness of breath. COVID Positive. TECHNIQUE: Multiaxial CT images of the chest were performed without contrast. A dose lowering technique was utilized adhering to the principles of ALARA. COMPARISON: CTA chest 02/08/2022 FINDINGS: The thyroid nodule or lymphadenopathy. Moderate cardiomegaly. No pericardial effusion. Extensive coronary artery calcifications. There is atherosclerosis of the thoracic aorta without aneurysm. Aberrant right subclavian artery. Small right greater than left pleural effusions. Bronchial wall thickening with mild bibasilar mucous plugging. Prior left upper lobectomy with persistent scarring in the left lung base. Asymmetric right greater than left pulmonary edema is similar to the prior study. Mild dependent consolidation of the lung bases. No acute process of the imaged upper abdomen. Unremarkable soft tissues. Chronic left-sided rib fractures. Degenerative changes of the spine and shoulders. Gynecomastia. IMPRESSION: 1. Cardiomegaly with asymmetric pulmonary edema. 2. Small pleural effusions with mild dependent bibasilar consolidation suggestive of atelectasis. Pneumonia considered less likely. 3. Prior left upper lobectomy. 4. Additional findings as above. ACT 112: Negative or not required by law. Electronically signed by: Julien Dorado M.D. 03/01/2022 11:41 AM Blood Pressure Blood Pressure Findings: Normal blood pressure Blood Pressure Disposition: did not require urgent referral Discharge Plan Visit Data Chief Complaint: Shortness of Breath/Dyspnea Stated Complaint: SOB, CHEST PAIN ED Provider: Daiana Porter Discharge Problem: Respiratory failure with hypoxia, COVID-19, Troponin level elevated, CHF (congestive heart failure) Patient Disposition: Admitted As Inpatient Discharge Instructions Interventions: ED AMA/LWBS Discharge Assessment Last Done: 03/01/22 15:10 : Respiratory failure with hypoxia Qualifiers: Chronicity: acute on chronic Qualified Code(s): J96.21 - Acute and chronic respiratory failure with hypoxia
--- NOTE | 2022-03-01 19:52 | Communication Note ---
Date of Service: March 01, 2022 21:15- RN notified me that patient's hsTroponin had increased from 800 to 2200. Patient still without chest pain. I spoke with patient's daytime attending (Dr. Linares) who said the plan is to hold heparin unless patient develops chest pain. Will hold off at this time and continue to monitor clinically. Allan Abraham, PGY-3 Resident Activity Tracking Resident Involvement: Resident Care Provided and Social Media Analyst Coverage Note Care Provided: Adult Hospital Medicine
[2022-03-01] MEDS: SIMVASTATIN 20 MG TAB PO SCH (21:00)
[2022-03-01] MEDS: GABAPENTIN 100 MG CAP PO SCH (21:01)
[2022-03-01] MEDS: METOPROLOL TARTRATE 50 MG TAB PO SCH (21:01)
[2022-03-01] MEDS: ASPIRIN 81 MG ECTAB PO SCH (21:01)
[2022-03-01] MEDS: LANTUS PER UNIT CHARGE SQ SCH (21:07)
[2022-03-01] MEDS: guaiFENesin 600 MG TABCR PO SCH (21:18)
[2022-03-02] MEDS: NITROGLYCERIN 2% OINTMENT 30GM TUBE EXT SCH ×3 (05:58→17:33)
[2022-03-02 07:49] LABS: Basophils # (auto) 0.02 K/uL (0-0.2); Basophils % (auto) 0.2 %; Eosinophils # (auto) 0.02 K/uL (0-0.50); Eosinophils % (auto) 0.2 %; Hematocrit (blood only) 31.2 % (40.1-51.0); Hemoglobin 9.8 g/dl (14.0-18.0); Immature Granulocytes # (auto) 0.05 K/uL (0.00-0.02); Immature Granulocytes % (auto) 0.4 %; Lymphocytes % (auto) 7.9 %; Mean Corpuscular Hemoglobin 27.6 pg (25.0-34.0); Mean Corpuscular Hgb Conc 31.4 g/dL (32.0-36.0); Mean Corpuscular Volume 87.9 fL (80.0-100.0); Mean Platelet Volume 10.7 fL (9.4-12.4); Monocytes # (auto) 0.92 K/uL (0.24-0.82); Monocytes % (auto) 7.2 %; Neutrophils # (auto) 10.71 K/uL (1.4-6.5); Neutrophils % (auto) 84.1 %; Platelet Count 232 K/uL (130-400); RDW Coefficient of Variation 14.9 % (11.5-14.5); RDW Standard Deviation 48.1 fL (36.4-46.3); Red Blood Count 3.55 M/uL (4.63-6.08); White Blood Count 12.72 K/ul (4.8-10.8)
[2022-03-02 08:13] LABS: Albumin Globulin Ratio 1.4 (0.9-2); Albumin Level 3.8 gm/dl (3.4-5.0); BUN Creatinine Ratio 23.5 (10-20); Bilirubin,Total 0.7 mg/dl (0.2-1.0); Calcium 8.8 mg/dl (8.5-10.1); Creatinine Clr Calc Pharmacy 42.5 ml/min; Est GFR (African American) 46.1 ml/min; Est GFR (Non-African American) 39.8 ml/min; Globulin 2.7 gm/dl (2.5-4.0); Total Protein 6.5 gm/dl (6.0-8.3)
--- NOTE | 2022-03-02 08:34 | Pharmacy Report ---
Pharmacy Glycemic Short Note 2 - Date of Service March 02, 2022 - Glycemic Short BSG Results (Last 24 hours): 03/01/22 03/01/22 03/01/22 09:25 13:15 16:45 Glucose 296 H POC Glucose 289 H 311 H* 03/01/22 03/02/22 03/02/22 21:04 06:58 07:21 Glucose 146 H POC Glucose 278 H 162 H OUTPATIENT ANTIDIABETIC REGIMEN: * Humalog Mix 75/25: * 95 units SC every morning * 60 units SC every evening * Trulicity 0.75 mg SC every Wednesday * HbA1c = 6.3% (02/09/22) ASSESSMENT: 03/02: * Juancho received a total of 75 units of insulin yesterday - 35 units basal + 40 units bolus. BSGs were elevated: 289-311-278 mg/dL. * Fasting BSG improved to 162 mg/dL this AM. Will continue with current basal dose which will provide an approximate 10% reduction from yesterday. This is acceptable given significant drop in fasting BSG. * No change to Novolog today. Remains off steroids. 03/01: * 81 yo M admitted today for shortness of breath secondary to heart failure exacerbation. Pharmacy has been consulted to assist with inpatient glycemic management. 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 Ordered a type 2 diabetic diet; however, is functionally NPO secondary to BiPAP use. Did receive 6 mg of IV dexamethasone in the ED. No further steroids have been ordered. * BSG was 289 mg/dL around lunchtime. Patient received 20 units of Lantus in the ED. * Basal and bolus insulin will be started utilizing previous admission data. Basal dose will be much lower than home doses secondary to patient functionally being NPO. During previous admission in January 2022, patient was switched to NPH prior to discharge to help transition back to home dose of Humalog Mix. Will consider this strategy again. PLAN FOR INPATIENT GLYCEMIC CONTROL: * Basal insulin * Lantus 15 units SC BID * Bolus insulin * NovoLog per scale ACHS or Q6hrs while NPO * Goal Range: Low 110 mg/dL - High 140 mg/dL * Correction Factor: 15 mg/dL/unit * Nutritional / Prandial insulin per carb ratio of 1 unit per 5 grams CHO consumed
[2022-03-02] MEDS: INSULIN ASPART PER UNIT SC SCH ×4 (08:37→20:50)
[2022-03-02] MEDS: LANTUS PER UNIT CHARGE SQ SCH ×2 (08:39→21:49)
[2022-03-02 08:47] LABS: Estimated Average Glucose 154 mg/dl
[2022-03-02] MEDS: FUROSEMIDE 40 MG/4 ML VIAL IV SCH ×2 (08:58→17:30)
[2022-03-02] MEDS: guaiFENesin 600 MG TABCR PO SCH ×2 (08:59→21:47)
[2022-03-02] MEDS: GABAPENTIN 100 MG CAP PO SCH ×2 (08:59→21:48)
[2022-03-02] MEDS: ASPIRIN 81 MG ECTAB PO SCH (08:59)
[2022-03-02] MEDS: UMECLIDINIUM/VILANTEROL 62.5/25MCG 7 PUFFS/INHALER INH SCH (08:59)
[2022-03-02] MEDS: METOPROLOL TARTRATE 50 MG TAB PO SCH ×2 (08:59→21:47)
[2022-03-02] MEDS: ISOSORBIDE MONO EXTENDED REL 60 MG TABCR PO SCH (12:56)
[2022-03-02] MEDS: HEPARIN SOD 5,000 UNIT/0.5 ML VIAL SC SCH ×2 (12:58→21:46)
--- NOTE | 2022-03-02 15:23 | XCELERA ---
[id number] \\[id number]_[id number]
--- NOTE | 2022-03-02 18:55 | Hospitalist Progress Note ---
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 Left basilar predominant consolidation suggestive of atelectasis versus superimposed pneumonia. TTE 10/2021 with severe , patient has refused TAVR in the past. With contribution to pulmonary edema and respiratory failure due to this TTE 02/08/2022: EF 55-60%, severe . Valve area 0.6 - Admit EKG: Sinus tachycardia, LVH. Borderline ST depression V5/V6, no ST segment elevations, rate 109, QTc 468 PFT 03/01/2022: FVC 44%, FEV1 46%, FEV1/FVC 103%. Consistent with moderate restrictive lung disease and air trapping. Insignificant bronchodilator response Creatinine baseline appears 1.461.65, elevated on admission to 1.93 - BiPAP continuous, qHS/PRN once improved. Goal SpO2 >89% BSG 296 Leukocytosis to 13 on admit Hemoglobin 9.8 -CT-C Cardiomegaly with asymmetric pulmonary edema.2. Small pleural effusions with mild dependent bibasilar consolidation suggestive of atelectasis. Pneumonia considered less likely.3. Prior left upper lobectomy.4. Additional findings as above. Lasix 40mg BID17 IV; Patient with severe , will have some degree of preload dependence follow closely for signs of overdiuresis. Decrease to daily tomorrow if well. - Recently discharged 02/11/2022 after an admission for respiratory failure with hypoxia multifactorial with severe aortic stenosis, COVID-19, and suspected superimposed heart failure Patient previously had declined referral for TAVR, he reports that while he would not want heroic measures including CPR/intubation and remains DNR/DNI he is aware that he is likely to have recurrent admissions due to the severity of his aortic stenosis. Does not wish to pursue comfort measures at this time. At this time he would like to at least have a referral for TAVR evaluation, and notes that if this something they are not able to do then he would be okay with that and would consider more comfort oriented goals at that time. Notes that he was scheduled for follow-up to discuss TAVR with Dr. Garland this month. Cardiology consulted for assistance with CHF/AMS given patient's food sensitivity with preload dependence and change in goals to pursue TAVR Patient troponin is downtrending. He feels greatly clinically improved 03/02, doing well with diuresis. Stil w evidence of some volume overload, creatinine improving. We will continue diuresis and decreased to 40 mg daily tomorrow doing well. Troponin is downtrending. Cardiology consulted for evaluation & ? cath in anticipation of potential TAVR referral DM A1c this month <7%, well controlled Goal BSG [id number] Hold home Trulicity [employer] On 7525 60 units every afternoon, 95 units every morning at home Based on TDD basal insulin 27 twice daily, CF 15, carb ratio 5 While on BiPAP/not eating, will temporarily reduce basal to 20 units A1c this month 6.3% well-controlled given initial steroid treatment, hyperglycemia, and high requirements will consult pharmacy for additional management Hx COVID-19 COVID symptoms began 02/03/2022 COVID-positive on admission 02/08/2022 Received Decadron x10-day course with 12 mg IV and remdesivir on past admit Patient clinically improved from COVID, current symptoms appear more consistent with CHF onset by potential high salt load and AAS Received dexamethasone in ER, no wheezing on exam Will defer additional steroids at this time and follow. If underlying post- covid inflammation suspected + course of dex 6mg BID Severe aortic stenosis As above, patient reports he is considering TAVR at this time Pulmonary hypertension With severe aortic stenosis, CHF Fluid management as above, PPV as above Predominantly restrictive lung disease, history of obstructive component BPV as above Continue Anoro/equivalent conversion DuoNebs as needed Flutter valve, incentive spirometry No wheezing, suspect predominantly fluid overload. We will follow if signs of COPD exacerbation or superimposed pneumonia will treat accordingly CAD Continue aspirin 81 mg daily Continue Imdur Patient with chest pain with shortness of breath prior to admission, denies any clinical chest pain at bedside and reports his breathing feels greatly improved following diuresis. Suspect demand Troponin trended, cards consulted as above, heparinization deferred at this time Chronic anemia Normocytic chronic anemia with CKD Continue home iron - No indication for xfusion at this time Hypertension On Lopressor HCTZ/triamterene held due to DEBORA HLD Continue statin Pulmonary nodule Follows with pulmonary, repeat CT scan pending as outpatient DVT prophylaxis: Heparin with DEBORA Diet: Heart healthy/DM/low-sodium once able to be off BiPAP Disposition: PCU CODE STATUS: DNR/DNI, confirmed with patient about (2) Acute respiratory failure with hypoxia: (3) CAD (coronary artery disease): (4) CHF exacerbation: (5) Acute kidney injury superimposed on CKD: (6) Diabetes: (7) Dyslipidemia: (8) Elevated troponin: (9) Gastro-esophageal reflux: (10) High cholesterol: (11) History of lobectomy of lung: (12) Hypertension: (13) Obstructive sleep apnea syndrome: (14) Primary adenocarcinoma of upper lobe of left lung: (15) Pulmonary hypertension: (16) S/P lobectomy of lung: (17) Anemia: (18) Valvular disease: Admission and Anticipated Discharge Date Admission Date: March 01, 2022 Subjective Side in the morning. Initially using the restroom, reports that he has intermittently had a slight band of pressure around his chest, on reassessment this is no longer present. He reports his breathing feels much better, and improved and that he is peeing out bottles of fluid. No fevers, chills, sweats, lightheadedness, dizziness at time of assessment. Feels his appetite is okay. He is still considering TAVR referral, and is pending cardiology assessment. Review of Systems Review of Systems: All systems reviewed & are unremarkable except as noted in Subjective Physical Exam Physical Exam: General: A&Ox3. NAD. Cooperative. HEENT: Atraumatic, normocephalic. Vision/Hearing intact Pulm: Coarse but clears with deep breathing, remains with some crackles in the basesbut again improving from prior. No respiratory wheezes appreciated. Reading comfortably on room air at time of reassessment. Cardiac: Regular, soft systolic murmur with radiation to carotid, radial pulses intact and symmetrical. JVD improved Abdominal: Nontender, nondistended, soft. BS present. Remedies: Warm, dry. +KENIA. Sensation of soft touch intact in hands and feet without deficit, ankle dorsiflexion/plantarflexion and stage technician strength intact Results & Data Results & Data ([facility]) Vital Signs (Past 12 Hours) Vital Signs Temp Pulse Pulse Resp BP Pulse Ox O2 Del Method 03/02/22 16:28 36.3 C L 66 18 96/51 L 95 Room Air 03/02/22 13:51 67 03/02/22 14:00 Room Air 03/02/22 12:59 96 Room Air 03/02/22 11:45 36.4 C L 60 124/62 100 Nasal Cannula 03/02/22 07:20 Nasal Cannula 03/02/22 07:24 36.5 C 67 126/68 100 Nasal Cannula O2 Flow Rate 03/02/22 16:28 03/02/22 13:51 03/02/22 14:00 03/02/22 12:59 03/02/22 11:45 2 03/02/22 07:20 4 03/02/22 07:24 4 PG Care Time/CCT Total # of Minutes Spent Total Time Spent with Patient: Total time spent is greater than 50% in coordination of care (as documented) at patient's floor/unit and/or counseling patient: Coding Level of Care Code 60932 Subseq Hosp Care Lvl 3 Diagnoses Heart failure with preserved ejection fraction I50.30 Acute respiratory failure with hypoxia J96.01 CAD (coronary artery disease) I25.10 CHF exacerbation I50.9 Acute kidney injury superimposed on CKD N17.9; N18.9 Diabetes E11.9 Dyslipidemia E78.5 Elevated troponin R77.8 Gastro-esophageal reflux K21.9 High cholesterol E78.00 History of lobectomy of lung Z90.2 Hypertension I10 Obstructive sleep apnea syndrome G47.33 Primary adenocarcinoma of upper lobe of left lung C34.12 Pulmonary hypertension I27.20 S/P lobectomy of lung Z90.2 Anemia D64.9 Valvular disease I38
--- NOTE | 2022-03-02 19:25 | Cardiology Consultation ---
Date of Consultation March 02, 2022 Assessment & Plan (1) Severe aortic stenosis: (2) Non-ST elevation (NSTEMI) myocardial infarction: (3) Acute on chronic heart failure with preserved ejection fraction (HFpEF): (4) CAD (coronary artery disease): (5) CKD (chronic kidney disease): (6) Hypertension: (7) Dyslipidemia: (8) Anemia: Plan ASSESSMENT/PLAN: 1. Severe aortic stenosis: He is now willing to consider aortic valve replacement. Aortic stenosis is likely contributing to his presentation with CHF exacerbation, and possibly his atypical chest discomfort. Recommend cardiac catheterization in anticipation of aortic valve replacement evaluation. Risks and benefits of the procedure were discussed with him in detail. NPO after midnight except for medications for possible cath tomorrow. 2. NSTEMI: Discussed the diagnosis. Could be demand ischemia although he is having intermittent chest discomfort, which appears atypical and apparently chronic but with increased frequency over the past several months. Could be due to aortic stenosis. Recommend cardiac catheterization as above. Continue aspirin by 81 mg once daily is sufficient from a cardiac perspective. Continue beta-angela. Consider high-intensity statin therapy. Holding off on heparin given worsening anemia and the fact that his chest discomfort is atypical and overall elevated troponin could be due to aortic stenosis, and less likely acute coronary syndrome. 3. Acute on chronic heart failure with preserved EF: He does not appear to be significantly hypervolemic currently and has diuresed well. Can continue current diuretic for now but will likely transition to oral soon. Would hold off on tomorrow morning's intravenous diuretic in anticipation of catheterization. Low-sodium diet. CHF exacerbation likely due to severe aortic stenosis and also dietary indiscretion. Strict I&Os and daily weights while hospitalized. Consider heart failure program as an outpatient. 4. CAD: Nonobstructive in the past. Catheterization as above. Medical therapy as above. 5. CKD: Monitor renal function. Will try to limit IV dye during catheterization. BMP in the morning prior to pursuing catheterization. 6. Hypertension: Blood pressure has been mostly normotensive. Continue current regimen as above. 7. Dyslipidemia: Consider high-intensity statin therapy. Goal LDL < 70. 8. Anemia: His hemoglobin was 14.6 on 11/12/2021 and now has trended downward to 9.8. No obvious bleeding. Recommend evaluation. Defer to primary hospitalist team. 9. Disposition: Cardiology will continue to follow. On discharge, follow with Dr. Garland, his primary hospitalist. Patient care communicated with Dr. Linares, primary hospitalist. Patient's was contacted via telephone and discussed aortic valve replacement and cardiac catheterization. She was agreeable to move forward. Highly complex medical issues. Thank you for allowing me to participate in the care of your patient. Please call for any other questions or concerns. Sincerely, Reed Murray M.D. History of Present Illness Reason for Consultation: "CHF, severe , trop" Requesting Physician: Robby Linares MD Attending Physician: Robby Linares MD History of Present Illness Mr. 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 Garland. He has been known to have severe aortic stenosis as well as exertional dyspnea. He has declined aortic valve replacement evaluation in the past. He was hospitalized on 03/01/2022 after developing acute shortness of breath. He admits to orthopnea. He apparently consumed ham on the day prior to presentation and then on the day of presentation, crackers and cheese. He admits that he add salt to his cheese at times. He denies chest discomfort but had developed orthopnea and once again worsening shortness of breath. As an outpatient, he has described chest discomfort which was nonexertional. He states that this is not a new issue for him although he believes that the frequency has increased over the past 6 months. He believes that the chest discomfort occurs mostly after eating. He had an episode this morning after breakfast. He has taken antacids at home and believes they have offered benefit at times, but no benefit at other times. In general, he is a poor historian and has difficulty describing his symptoms in detail. He did describe the chest discomfort as a pressure sensation that goes across his chest and sometimes into his back. Symptoms tend to occur at rest. His breathing has improved significantly with diuresis during this hospital stay. Thus far, his net negative fluid balance is more than 4 L according to nursing chart. He is also down approximately 13 lb according to records, compared to presentation. His troponin was initially elevated at 53 and peaked at 3521, before trending downward. He had a cardiac catheterization in 2016 but does not recall undergoing the procedure and admits that he has a poor memory. Prior to this consultation, he has decided that he would potentially pursue aortic valve replacement to improve his quality of life and reduce hospitalization frequency. He denies melena, hematochezia, hematuria, or other bleeding. He denies syncope, near-syncope, palpitations. He had edema which apparently has improved. Review of systems: As above. Review of systems otherwise negative/unremark able. Family history: Father had CAD. Social history: He never smoked. Quit consuming alcohol at least 20 years ago. He lives at home with his . He was unaccompanied in his hospital room. Allergies Allergy/AdvReac Type Severity Reaction Status Date / Time sulfamethoxazole Allergy Hives Verified 02/17/22 13:23 [From Bactrim] trimethoprim [From Bactrim] Allergy Hives Verified 02/17/22 13:23 Home Medications Medication Instructions Recorded Confirmed Type aspirin 81 mg tablet,delayed 81 mg PO BID 04/25/18 02/17/22 History release coenzyme Q10 100 mg capsule 200 mg PO QAM 04/25/18 02/17/22 History (CoQ-10) metoprolol tartrate 50 mg tablet 50 mg PO BID 04/25/18 02/17/22 History multivitamin 1 tab PO QAM 04/25/18 02/17/22 History omeprazole magnesium 20 mg 20 mg PO QAM 04/25/18 02/17/22 History tablet,delayed release (Prilosec OTC) simvastatin 20 mg tablet 20 mg PO HS 04/25/18 02/17/22 History triamterene 37.5 1 tab PO QAM 04/25/18 02/17/22 History mg-hydrochlorothiazide 25 mg tablet guaifenesin 1,200 mg tablet, 1,200 mg PO BID 04/27/19 02/17/22 History extended release 12 hr (Mucinex) CPAP Machine #1 ea 07/17/19 02/17/22 Rx ferrous sulfate 324 mg (65 mg 324 mg PO DAILY 07/17/19 02/17/22 History iron) tablet,delayed release insulin lispro protamine-lispro 60 unit subcut QPM 03/20/20 02/17/22 History 100 unit/mL (75-25) subcutaneous susp (Humalog Mix 75-25(U-100)Insuln) insulin lispro protamine-lispro 95 unit subcut QAM 03/20/20 02/17/22 History 100 unit/mL (75-25) subcutaneous susp (Humalog Mix 75-25(U-100)Insuln) CPAP Supplies #1 ea 05/23/20 02/17/22 Rx nebulizers (Aeroneb Go Nebulizer) #1 ea 05/23/20 02/17/22 Rx Flutter Valve #1 ea 05/24/20 02/17/22 Rx dulaglutide 0.75 mg/0.5 mL 0.75 mg subcut .weekly 11/08/20 02/17/22 History subcutaneous pen injector (Trulicity) ipratropium 0.5 mg-albuterol 3 mg 3 ml inhalation Q8H PRN shortness 11/25/20 02/17/22 Rx (2.5 mg base)/3 mL nebulization of breath or wheezing #270 mL soln fluticasone propionate 50 1 spray intranasal DAILY #9.9 grams 03/24/21 02/17/22 Rx mcg/actuation nasal spray,suspension (Allergy Relief (fluticasone)) astragalus root 470 mg capsule 470 mg PO DAILY 11/08/21 02/17/22 History isosorbide mononitrate 60 mg 60 mg PO DAILY 11/08/21 02/17/22 History tablet,extended release 24 hr umeclidinium 62.5 mcg-vilanterol 1 inh inhalation DAILY #60 ea 11/13/21 02/17/22 Rx 25 mcg/actuation powdr for inhalation (Anoro Ellipta) gabapentin 100 mg capsule 100 mg PO BID #30 caps 11/20/21 02/17/22 Rx furosemide 40 mg tablet 40 mg PO Q OTHER DAY 01/14/22 02/17/22 History potassium chloride 10 mEq 20 meq PO .COMPLEX 01/14/22 02/17/22 History capsule,extended release Patient History Medical History (Updated 03/02/22 @ 19:38 by Joaquín Murray MD) Abnormal stress echo Anemia CAD (coronary artery disease) NON-OBSTRUCTIVE Cholelithiasis CKD (chronic kidney disease) baseline creatinine 1.6 Diabetes Diabetes mellitus, type 2 IDDM, +B/L FEET NEUROPATHY Dyspnea on exertion Gastro-esophageal reflux GERD (gastroesophageal reflux disease) Hearing deficit wears hearing aids Heart failure with preserved ejection fraction Hiatal hernia High cholesterol Hyperlipidemia Hypertension Hypertension Impacted cerumen of left ear Lip ulcer Lung cancer Discharge summary dated 04/06/[address] Mari: HOSPITAL COURSE: This is a very nice 77-year-old male who was found to have a mass. It certainly appeared to be a carcinoma in the left upper lobe. We worked him up and felt he would be a candidate for a resection. Upon opening the lung, getting into the patient's chest with our robotic thoracoscopic resection on 03/30/2018, I was quite pleased. We took down the fissure quite nicely, took down all of the arterial branches but one and had the vein isolated as well as the bronchus and the patient had a tear of this remaining artery. We controlled this, we had to open the chest. We eventually got control and I repaired this primarily. The patient was extubated later that day. We had a significant blood loss. The patient was transfused. He also had a creatinine of 1.71 preop. This went as high as 3 in the subsequent days, but then came back down. He looked very good the day after surgery. He was requiring no oxygen and was eating a regular diet. We had some drainage from the chest tubes. We kept it in for a few days. There was no evidence of bleeding. Frankly I was quite pleased with him. He was ambulating in the hallway. He was moving his bowels, although he required some cathartics. Hemoglobin settled down in the low 8. We left it there after used 4 units total of blood. Creatinine came back down. He was making excellent urine. Creatinine was 2.51 the day before discharge. His incisions were all clean. We removed his chest tube after he had a small pneumothorax, a small amount of fluid and on 04/05/2018, I performed an aspiration of this and his pneumothorax had resolved. I was quite happy with this. The following day, I did not really see much of pneumothorax. He had a bit more fluid, but he was on room air, ambulating and I think it is best for him to go home. 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 I told her to call me directly should there be any issues. Quite frankly, I was quite pleased with him. His incisions were clean. He had very little in the way of pain. We did send him home on tramadol and told to resume his regular medications. I will see him back in the office next week. 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 Robotic L VATS converted to open procedure. Glidescope assisted PERFECTO insertion. During surgery there was significant bleeding from the pulmonary artery which forced a change to an open thoracotomy and was difficult to control. Fluids were given followed by blood and between the blood loss and manipulation in the chest there were some brief times when the eros was showing very little pulse. His CO2 tracing dropped but never went to nothing. Along with the fluids he did receive 0.5mg epi and 2 units of vasopressin in addition to occasional small doses of ephedrine and phenylephrine. Blood loss was controlled and his vitals stabilized for the rest of the case. At the end of the procedure, we changed to a single lumen ETT and Dr Mari did a bronchoscopy which showed a little blood in the bronchi but basically clear. He is making urine, his vitals are stable, we are leaving him on the ventilator for the mean time to allow him to wake and make sure he is not acidotic. Labs and chest film are being done now - report to ICU MD. Surgical History History of cardiac cath 2015- NO STENTS [facility] History of cholecystectomy 11/22/2014. DL x2. Glidescope #3 by ELIANA and 7.5 ETT inserted. Grade 3 view. 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 Alert. HEENT: Anicteric sclera. Neck: No appreciable JVD. Thick neck. Bilateral bruits vs radiation of cardiac murmur. Normal carotid upstrokes bilaterally. Cardiac: No ventricular heave. Regular. Normal S1. Soft S2. 3/6 late peaking systolic ejection murmur heard best at right upper sternal border. No rubs or gallops. Pulmonary: Decreased breath sounds bilaterally, but otherwise clear to auscultation bilaterally without wheezes, rales, or rhonchi. Abdomen: Soft, nontender, nondistended, with normoactive bowel sounds. No bruits noted. Extremities: 2+ radial pulses bilaterally. 2+ posterior tibialis pulses bilaterally. Trace bilateral lower extremity edema. No cyanosis. Psychiatric: Affect appears appropriate. Results & Data ([facility]) Vital Signs (Past 12 Hours) Vital Signs Temp Pulse Pulse Resp BP Pulse Ox O2 Del Method 03/02/22 16:28 36.3 C L 66 18 96/51 L 95 Room Air 03/02/22 13:51 67 03/02/22 14:00 Room Air 03/02/22 12:59 96 Room Air 03/02/22 11:45 36.4 C L 60 124/62 100 Nasal Cannula 03/02/22 07:24 36.5 C 67 126/68 100 Nasal Cannula O2 Flow Rate 03/02/22 16:28 03/02/22 13:51 03/02/22 14:00 03/02/22 12:59 03/02/22 11:45 2 03/02/22 07:24 4 Intake & Output 02/28/22 03/01/22 03/02/22 03/03/22 06:59 06:59 06:59 06:59 Intake Total 440 / 440 Output Total 3900 / 3900 900 / 900 Balance -3460 / -3460 -900 / -900 Weight 214 lb 4.629 oz Laboratory Results Laboratory Results - last 24 hr 03/01/22 03/02/22 03/02/22 21:04 00:36 06:58 WBC 12.72 H RBC 3.55 L Hgb 9.8 L Hct 31.2 L MCV 87.9 MCH 27.6 MCHC 31.4 L RDW Std Deviation 48.1 H RDW Coeff of Mac 14.9 H Plt Count 232 MPV 10.7 Immature Gran % (Auto) 0.4 Neut % (Auto) 84.1 Lymph % (Auto) 7.9 [place] % (Auto) 7.2 Eos % (Auto) 0.2 Baso % (Auto) 0.2 Neut # (Auto) 10.71 H Lymph # (Auto) 1.00 L [place] # (Auto) 0.92 H Eos # (Auto) 0.02 Baso # (Auto) 0.02 Immature Gran # (Auto) 0.05 H Sodium Potassium Chloride Carbon Dioxide Anion Gap BUN Creatinine Est Cr Clr Drug Dosing Est GFR ( Amer) Est GFR (Non-Af Amer) BUN/Creatinine Ratio Glucose POC Glucose 278 H Estimat Average Glucose Hemoglobin A1c Calcium Total Bilirubin AST ALT Alkaline Phosphatase Troponin I High Sens 3521.4 H* D Total Protein Albumin Globulin Albumin/Globulin Ratio 03/02/22 03/02/22 03/02/22 06:58 06:58 06:58 WBC RBC Hgb Hct MCV MCH MCHC RDW Std Deviation RDW Coeff of Mac Plt Count MPV Immature Gran % (Auto) Neut % (Auto) Lymph % (Auto) [place] % (Auto) Eos % (Auto) Baso % (Auto) Neut # (Auto) Lymph # (Auto) [place] # (Auto) Eos # (Auto) Baso # (Auto) Immature Gran # (Auto) Sodium 138 Potassium 4.0 Chloride 101 Carbon Dioxide 30 Anion Gap 7 BUN 38 H Creatinine 1.62 H D Est Cr Clr Drug Dosing 42.5 Est GFR ( Amer) 46.1 Est GFR (Non-Af Amer) 39.8 BUN/Creatinine Ratio 23.5 H Glucose 146 H POC Glucose Estimat Average Glucose 154 Hemoglobin A1c 7.0 H Calcium 8.8 Total Bilirubin 0.7 AST 27 ALT 15 Alkaline Phosphatase 50 Troponin I High Sens 2388.4 H* D Total Protein 6.5 Albumin 3.8 Globulin 2.7 Albumin/Globulin Ratio 1.4 03/02/22 03/02/22 03/02/22 07:21 11:42 16:21 WBC RBC Hgb Hct MCV MCH MCHC RDW Std Deviation RDW Coeff of Mac Plt Count MPV Immature Gran % (Auto) Neut % (Auto) Lymph % (Auto) [place] % (Auto) Eos % (Auto) Baso % (Auto) Neut # (Auto) Lymph # (Auto) [place] # (Auto) Eos # (Auto) Baso # (Auto) Immature Gran # (Auto) Sodium Potassium Chloride Carbon Dioxide Anion Gap BUN Creatinine Est Cr Clr Drug Dosing Est GFR ( Amer) Est GFR (Non-Af Amer) BUN/Creatinine Ratio Glucose POC Glucose 162 H 173 H 120 H Estimat Average Glucose Hemoglobin A1c Calcium Total Bilirubin AST ALT Alkaline Phosphatase Troponin I High Sens Total Protein Albumin Globulin Albumin/Globulin Ratio 03/02/22 18:04 WBC RBC Hgb Hct MCV MCH MCHC RDW Std Deviation RDW Coeff of Mac Plt Count MPV Immature Gran % (Auto) Neut % (Auto) Lymph % (Auto) [place] % (Auto) Eos % (Auto) Baso % (Auto) Neut # (Auto) Lymph # (Auto) [place] # (Auto) Eos # (Auto) Baso # (Auto) Immature Gran # (Auto) Sodium Potassium Chloride Carbon Dioxide Anion Gap BUN Creatinine Est Cr Clr Drug Dosing Est GFR ( Amer) Est GFR (Non-Af Amer) BUN/Creatinine Ratio Glucose POC Glucose Estimat Average Glucose Hemoglobin A1c Calcium Total Bilirubin AST ALT Alkaline Phosphatase Troponin I High Sens Pending Total Protein Albumin Globulin Albumin/Globulin Ratio Diagnostic Findings Cardiac catheterization 05/28/2016: Ostial LAD 30%. Co dominant system. Telemetry personally reviewed: Sinus rhythm. Nonsustained SVT on 03/01/2022. No ventricular arrhythmia noted. Echo 03/02/2022: Low-normal LV systolic function. EF 50-55%. Severe LVH. Normal wall motion. Mild biatrial dilation. Severe . Mild MR. ECG personally reviewed 03/01/2022 at 9:24 a.m.: Sinus tachycardia 109 beats per minute. LVH with repolarization abnormality. CT chest 03/01/2022 noncontrast: Asymmetric pulmonary edema per Radiology. Small pleural effusions. Prior left upper lobectomy. Medications Administered Current Inpatient Medications Acetaminophen (Acetaminophen 325 Mg Tab) 650 mg PO Q4H PRN PRN Reason: Pain or Fever Stop: 03/31/22 11:47 Last Admin: 03/01/22 13:45 Dose: 650 mg Aspirin (Aspirin 81 Mg Ectab) 81 mg PO BID [facility] Stop: 03/31/22 20:59 Last Admin: 03/02/22 08:59 Dose: 81 mg Dextrose (Dextrose 50% 50 Ml Syringe) 25 - 50 ml IV UD PRN; Protocol PRN Reason: Hypoglycemia Protocol Stop: 03/31/22 11:47 Furosemide (Furosemide 40 Mg/4 Ml Vial) 40 mg IV [id number] [facility]ANTANU Stop: 03/31/22 16:59 Last Admin: 03/02/22 17:30 Dose: 40 mg Gabapentin (Gabapentin 100 Mg Cap) 100 mg PO BID [facility] Stop: 03/31/22 20:59 Last Admin: 03/02/22 08:59 Dose: 100 mg Glucagon (Glucagon For Inj 1 Mg Vial) 1 mg SQ UD PRN; Protocol PRN Reason: Hypoglycemia Protocol Stop: 03/31/22 11:47 Glucose (Glucose 40% Gel 15 Gm Tube) 15 - 30 gm PO UD PRN; Protocol PRN Reason: Hypoglycemia Protocol Stop: 03/31/22 11:47 Glucose (Glucose 10 Tab/Tube) 4 - 8 tab PO UD PRN; Protocol PRN Reason: Hypoglycemia Treatment Stop: 03/31/22 11:47 Guaifenesin (Guaifenesin 600 Mg Tabcr) 1,200 mg PO BID [facility] Stop: 03/31/22 20:59 Last Admin: 03/02/22 08:59 Dose: 1,200 mg Heparin Sodium (Porcine) (Heparin Sod 5,000 Unit/0.5 Ml Vial) 5,000 units SC Q8 [facility] Stop: 04/01/22 13:59 Last Admin: 03/02/22 12:58 Dose: 5,000 units Insulin Aspart (Insulin Aspart Per Unit) 0 units SC ACHS [facility]; Protocol Stop: 03/31/22 11:47 Last Admin: 03/02/22 17:15 Dose: 9 units Insulin Glargine (Lantus Per Unit Charge) 15 units SQ BID [facility]; Protocol Stop: 03/31/22 20:59 Last Admin: 03/02/22 08:39 Dose: 15 units Isosorbide Mononitrate (Isosorbide [place] Extended Rel 60 Mg Tabcr) 60 mg PO DAILY [facility] Stop: 04/01/22 11:59 Last Admin: 03/02/22 12:56 Dose: 60 mg Metoprolol Tartrate (Metoprolol Tartrate 50 Mg Tab) 50 mg PO BID [facility] Stop: 03/31/22 20:59 Last Admin: 03/02/22 08:59 Dose: 50 mg Miscellaneous (Carbohydrates For Hypoglycemia ) 15 - 30 gm PO UD PRN PRN Reason: Hypoglycemia Protocol Stop: 03/31/22 11:47 Miscellaneous Information (Pharmacy Glycemic Mgmt Consult) 1 each N/A UD PRN PRN Reason: Consult Stop: 03/31/22 11:47 Nitroglycerin (Nitroglycerin 2% Ointment 30gm Tube) 1 inch EXT Q6 [facility]ANU Stop: 03/31/22 11:59 Last Admin: 03/02/22 17:33 Dose: Not Given Polyethylene Glycol (Polyethylene (Miralax) 17 Gm Pack) 17 gm PO DAILY PRN PRN Reason: Constipation Stop: 03/31/22 11:47 Potassium Chloride (Potassium Chloride Crtab 20 Meq Tabcr) 40 meq PO Q2D [facility]U Stop: 04/02/22 08:59 Simvastatin (Simvastatin 20 Mg Tab) 20 mg PO HS [facility]ANU Stop: 03/31/22 20:59 Last Admin: 03/01/22 21:00 Dose: 20 mg Umeclidinium/Vilanterol (Umeclidinium/Vilanterol 62.5/25mcg 7 Puffs/Inhaler) 1 puffs INH DAILY [facility]ANTANU Stop: 04/01/22 08:59 Last Admin: 03/02/22 08:59 Dose: 1 puffs PG Care Time/CCT Total # of Minutes Spent Total Time Spent with Patient: Total time spent is greater than 50% in coordination of care (as documented) at patient's floor/unit and/or counseling patient: Coding Level of Care Code 63596 Initial Inpt Care Lvl 3 Diagnoses Severe aortic stenosis I35.0 Non-ST elevation (NSTEMI) myocardial infarction I21.4 Acute on chronic heart failure with preserved ejection fraction (HFpEF) I50.33 CAD (coronary artery disease) I25.10 CKD (chronic kidney disease) N18.9 Hypertension I10 Dyslipidemia E78.5 Anemia D64.9
[2022-03-02] MEDS: SIMVASTATIN 20 MG TAB PO SCH (21:47)
[2022-03-03] MEDS: NITROGLYCERIN 2% OINTMENT 30GM TUBE EXT SCH ×4 (00:27→17:15)
[2022-03-03] MEDS: INSULIN ASPART PER UNIT SC SCH ×4 (07:48→20:56)
[2022-03-03] MEDS: GABAPENTIN 100 MG CAP PO SCH ×2 (08:56→19:45)
[2022-03-03] MEDS: guaiFENesin 600 MG TABCR PO SCH ×2 (08:56→19:44)
[2022-03-03] MEDS: ISOSORBIDE MONO EXTENDED REL 60 MG TABCR PO SCH (08:56)
[2022-03-03] MEDS: METOPROLOL TARTRATE 50 MG TAB PO SCH ×2 (08:57→19:46)
[2022-03-03] MEDS: POTASSIUM CHLORIDE CRTAB 20 MEQ TABCR PO SCH (08:57)
[2022-03-03] MEDS: ASPIRIN 81 MG ECTAB PO SCH (08:57)
[2022-03-03] MEDS: UMECLIDINIUM/VILANTEROL 62.5/25MCG 7 PUFFS/INHALER INH SCH (08:58)
[2022-03-03] MEDS: LANTUS PER UNIT CHARGE SQ SCH ×2 (09:10→21:08)
[2022-03-03 09:56] LABS: Basophils # (auto) 0.04 K/uL (0-0.2); Basophils % (auto) 0.4 %; Eosinophils # (auto) 0.17 K/uL (0-0.50); Eosinophils % (auto) 1.6 %; Hematocrit (blood only) 31.4 % (40.1-51.0); Hemoglobin 9.9 g/dl (14.0-18.0); Immature Granulocytes # (auto) 0.04 K/uL (0.00-0.02); Immature Granulocytes % (auto) 0.4 %; Lymphocytes # (auto) 2.01 K/uL (1.2-3.4); Lymphocytes % (auto) 18.6 %; Mean Corpuscular Hemoglobin 27.5 pg (25.0-34.0); Mean Corpuscular Hgb Conc 31.5 g/dL (32.0-36.0); Mean Corpuscular Volume 87.2 fL (80.0-100.0); Mean Platelet Volume 10.7 fL (9.4-12.4); Monocytes # (auto) 1.03 K/uL (0.24-0.82); Monocytes % (auto) 9.5 %; Neutrophils # (auto) 7.54 K/uL (1.4-6.5); Neutrophils % (auto) 69.5 %; Platelet Count 265 K/uL (130-400); RDW Coefficient of Variation 15.3 % (11.5-14.5); Reticulocyte % 3.4 % (0.5-2.0); Reticulocytes # 0.12 10^6/uL (0.02-0.10); White Blood Count 10.83 K/ul (4.8-10.8)
[2022-03-03 10:39] LABS: Ferritin 16.1 ng/ml (8-388)
[2022-03-03 11:10] LABS: BUN Creatinine Ratio 28.1 (10-20); Creatinine Clr Calc Pharmacy 41.2 ml/min; Est GFR (African American) 44.4 ml/min; Est GFR (Non-African American) 38.3 ml/min; Potassium 3.5 mmol/L (3.5-5.1)
--- NOTE | 2022-03-03 12:09 | Pre Anesthesia Assessment ---
Date of Service March 03, 2022 Pre Sedation Assessment Vital Signs Temp Pulse Pulse Resp BP Pulse Ox O2 Del Method 03/03/22 08:15 Room Air 03/03/22 07:20 36.6 C 64 19 124/57 L 94 Room Air 03/03/22 07:08 63 03/03/22 03:58 36.7 C 61 18 106/56 L 94 Room Air 03/02/22 22:20 66 03/02/22 23:17 36.8 C 66 18 113/51 L 92 Room Air 03/02/22 20:00 Room Air 03/02/22 22:03 72 117/60 03/02/22 19:22 36.6 C 76 16 126/57 L 96 Room Air 03/02/22 16:28 36.3 C L 66 18 96/51 L 95 Room Air 03/02/22 13:51 67 03/02/22 14:00 Room Air 03/02/22 12:59 96 Room Air Cardiovascular + regular rate + murmur Respiratory normal respiratory effort, lungs clear to auscultation Pre-Sedation Airway Assessment Smoking Status: Light tobacco smoker Hx Sleep Apnea: Yes Short, Thick Neck: Yes Thyromental Distance: > or= 3.5 Finger Breadths Oral Cavity: + WNL Mallampati Class: III ASA: ASA3 NPO Status Date of Last Intake of Fluids: 03/03/22 Time of Last Intake of Fluids: 08:00 Last Oral Intake of Fluids Comment: sips with meds Date of Last Intake of Solid Food: 03/02/22 Time of Last Intake of Solid Foods: 17:30 Procedure Planning Contraindications for Sedation: none Current Medications Reviewed: Yes Notes The planned sedation has been discussed with the patient. Informed Consent was obtained. I have identified the patient, determined the appropriateness of sedation and have assessed the patient immediately prior to the procedure. All medicine(s) and interventions are by my order.
[2022-03-03] MEDS ORDERED: MIDAZOLAM HCL 1 MG/ML 2ML VIAL ONE (12:12)
[2022-03-03] MEDS ORDERED: niCARdipine HCL INJ 2.5 MG/ML 10 ML AMP ONE (12:12)
[2022-03-03] MEDS ORDERED: HEPARIN (PORCINE) 1000 UNIT/ML 10 ML (CATH LAB USE ONLY) ONE (12:12)
[2022-03-03] MEDS ORDERED: fentaNYL citrate 100 MCG/2 ML VIAL ONE (12:12)
[2022-03-03] MEDS ORDERED: NITROGLYCERIN/D5W 100MCG/ML 20ML SYR ONE (12:13)
--- NOTE | 2022-03-03 12:51 | Hospitalist Progress Note ---
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 Left basilar predominant consolidation suggestive of atelectasis versus superimposed pneumonia. TTE 10/2021 with severe , patient has refused TAVR in the past. With contribution to pulmonary edema and respiratory failure due to this TTE 02/08/2022: EF 55-60%, severe . Valve area 0.6 - Admit EKG: Sinus tachycardia, LVH. Borderline ST depression V5/V6, no ST segment elevations, rate 109, QTc 468 PFT 03/01/2022: FVC 44%, FEV1 46%, FEV1/FVC 103%. Consistent with moderate restrictive lung disease and air trapping. Insignificant bronchodilator response Creatinine baseline appears 1.461.65, elevated on admission to 1.93 - BiPAP continuous, qHS/PRN once improved. Goal SpO2 >89% BSG 296 Leukocytosis to 13 on admit Hemoglobin 9.8 --> 9.9 -CT-C Cardiomegaly with asymmetric pulmonary edema.2. Small pleural effusions with mild dependent bibasilar consolidation suggestive of atelectasis. Pneumonia considered less likely.3. Prior left upper lobectomy.4. Additional findings as above. - Recently discharged 02/11/2022 after an admission for respiratory failure with hypoxia multifactorial with severe aortic stenosis, COVID-19, and suspected superimposed heart failure -Creatinine 1.67 from 1.62 -Clinically without ongoing volume overload, Lasix held. Chest pain, demand ischemia versus NSTEMI versus Patient with atypical chest pain creasing over the past several months, no pain at time of assessment but has had intermittent pain in his chest at rest in which was worse initially with his fluid overload Cardiology consulted. Continuing aspirin, beta-angela, statin. Heparin deferred at this time with atypical symptoms and symptoms essentially due to Pending cardiac cath today, and can progress to TAVR evaluation as outpatient once optimized Patient previously had declined referral for TAVR, he reports that while he would not want heroic measures including CPR/intubation and remains DNR/DNI he is aware that he is likely to have recurrent admissions due to the severity of his aortic stenosis. Does not wish to pursue comfort measures at this time. At this time he would like to at least have a referral for TAVR evaluation, and notes that if this something they are not able to do then he would be okay with that and would consider more comfort oriented goals at that time. Notes that he was scheduled for follow-up to discuss TAVR with Dr. Garland this month. Cardiology consulted for assistance with CHF/AMS given patient's food sensitivity with preload dependence and change in goals to pursue TAVR Anemia - Chronically downtrending Iron studies with low ferritin, very low transferrin saturation consistent with iron deficiency anemia. Likely some element of CKD as well B12 normal, B12/folate pending Iron supplementation ordered Stool occult blood positive, Last colonoscopy more than 10 years ago. Will require GI follow-up/evaluation for endoscopy. Hemoglobin is stable today DM A1c this month <7%, well controlled Goal BSG 313015 Hold home Trulicity R[employer]NER On 7525 60 units every afternoon, 95 units every morning at home Based on TDD basal insulin 27 twice daily, CF 15, carb ratio 5 While on BiPAP/not eating, will temporarily reduce basal to 20 units A1c this month 6.3% well-controlled Adequate glycemic control today Hx COVID-19 COVID symptoms began 02/03/2022 COVID-positive on admission 02/08/2022 Received Decadron x10-day course with 12 mg IV and remdesivir on past admit Patient clinically improved from COVID, current symptoms appear more consistent with CHF onset by potential high salt load and AAS Received dexamethasone in ER, no wheezing on exam Will defer additional steroids at this time and follow. If underlying post- covid inflammation suspected + course of dex 6mg BID Severe aortic stenosis As above, patient reports he is considering TAVR at this time Pulmonary hypertension With severe aortic stenosis, CHF Fluid management as above, PPV as above Predominantly restrictive lung disease, history of obstructive component BPV as above Continue Anoro/equivalent conversion DuoNebs as needed Flutter valve, incentive spirometry No wheezing, suspect predominantly fluid overload. Remains without signs of COPD exacerbation Hypertension On Lopressor HCTZ/triamterene held due to DEBORA HLD Continue statin Pulmonary nodule Follows with pulmonary, repeat CT scan pending as outpatient DVT prophylaxis: Heparin with DEBORA Diet: Heart healthy/DM/low-sodium, n.p.o. today pending cath Disposition: PCU CODE STATUS: DNR/DNI, confirmed with patient at bedside (2) Acute respiratory failure with hypoxia: (3) CAD (coronary artery disease): (4) CHF exacerbation: (5) Acute kidney injury superimposed on CKD: (6) Diabetes: (7) Dyslipidemia: (8) Elevated troponin: (9) Gastro-esophageal reflux: (10) High cholesterol: (11) History of lobectomy of lung: (12) Hypertension: (13) Obstructive sleep apnea syndrome: (14) Primary adenocarcinoma of upper lobe of left lung: (15) Pulmonary hypertension: (16) S/P lobectomy of lung: (17) Anemia: (18) Valvular disease: Admission and Anticipated Discharge Date Admission Date: March 01, 2022 Subjective Seen at bedside this morning. Is awaiting cath, took some meds with a sip of water otherwise has been n.p.o. since midnight. He is breathing much more comfortably, reports his breathing feels relatively normal for him now. He is on room air and nondistressed. He denies any chest pain this morning and overnight. Reports he feels he probably should have looked into having his aortic stenosis addressed a year ago, but is motivated and somewhat hopeful that he may reduce his hospitalizations/energy if he is appropriate for AVR. No fever, chills, sweats overnight. Curious to know timing of his cath, otherwise no questions at bedside. Review of Systems Review of Systems: All systems reviewed & are unremarkable except as noted in Subjective Physical Exam Physical Exam: General: A&Ox3. NAD. Cooperative. HEENT: Atraumatic, normocephalic. Vision/Hearing intact Pulm: Clear, globally improved from prior. No respiratory wheezes appreciated. Reading comfortably on room air at time of reassessment. Cardiac: Regular, soft systolic murmur with radiation to carotid, radial pulses intact and symmetrical. Abdominal: Nontender, nondistended, soft. BS present. Remedies: Warm, dry. +KENIA. Sensation of soft touch intact in hands and feet without deficit, ankle dorsiflexion/plantarflexion and wind energy engineer strength intact Results & Data Results & Data ([facility]) Vital Signs (Past 12 Hours) Vital Signs Temp Pulse Pulse Resp BP Pulse Ox O2 Del Method 03/03/22 08:15 Room Air 03/03/22 07:20 36.6 C 64 19 124/57 L 94 Room Air 03/03/22 07:08 63 03/03/22 03:58 36.7 C 61 18 106/56 L 94 Room Air PG Care Time/CCT Total # of Minutes Spent Total Time Spent with Patient: Total time spent is greater than 50% in coordination of care (as documented) at patient's floor/unit and/or counseling patient: Coding Level of Care Code 66885 Subseq Hosp Care Lvl 2 Diagnoses Heart failure with preserved ejection fraction I50.30 Acute respiratory failure with hypoxia J96.01 CAD (coronary artery disease) I25.10 CHF exacerbation I50.9 Acute kidney injury superimposed on CKD N17.9; N18.9 Diabetes E11.9 Dyslipidemia E78.5 Elevated troponin R77.8 Gastro-esophageal reflux K21.9 High cholesterol E78.00 History of lobectomy of lung Z90.2 Hypertension I10 Obstructive sleep apnea syndrome G47.33 Primary adenocarcinoma of upper lobe of left lung C34.12 Pulmonary hypertension I27.20 S/P lobectomy of lung Z90.2 Anemia D64.9 Valvular disease I38
--- NOTE | 2022-03-03 13:16 | Cardiac Catheterization ---
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[employer] Cardiac Status Clinical evaluation leading to the procedure CAD Presenation: No Sxs, No angina Anginal Classification: No Symptoms Heart Failure: NYHA Class: CCS IV Cardiogenic Shock within 24 Hours: No Cardiac Arrest within 24 Hours: No Imaging Studies Past 6 Months: Yes Stress Studies Past 6 Months: No Coronary Anatomy Dominant: Right Diagnostic Physicians Name: Joaquín Murray MD Status: Elective Closure Device Percutaneous Entry Location: Radial Closure Device: Radial Band Recommendations: Valve Replacement Cardiac Cath Procedure Full Procedure Date March 03, 2022 Pre-Procedure Diagnosis Pre-Procedure Diagnosis: Non STEMI and Valvular Disease AUC Score AUC Score: 8 Post-Procedure Diagnosis Post-Procedure Diagnosis: Moderate CAD Procedure(s) Performed Procedure(s) Performed: Coronary Angiography Sales Engagement Manager Joaquín Murray MD Auditor Medical Claims(s) [place] Estimated Blood Loss Estimated Blood Loss: < 20 ml Medication(s) Medication(s): Fentanyl, Heparin, Lidocaine 1%, Nicardipine and Versed Summary of Findings Procedures: 1. Coronary angiography 2. Moderate sedation Indication: 81-year-old gentleman with severe aortic stenosis who presented with CHF and elevated troponin/NSTEMI. He has been experiencing intermittent atypical chest discomfort. He is agreeable to pursue aortic valve replacement. He has a history of diabetes, hypertension, dyslipidemia, and nonobstructive CAD. Coronary angiography: 1. Left main: Calcifications noted. Ostial left main 30 to 40%. Distal left main approximately 30%. 2. Left anterior descending: Ostial LAD 40 to 50%. Proximal LAD 20 to 30%. TAVIA-3 flow. No significant CAD in the remainder of the LAD or diagonal vessel. 3. Circumflex: Mid circumflex 20%. High OM1 without significant CAD. Very small caliber OM 2 and OM 3. 4. Right coronary artery: RCA is large and dominant. There was ventricularization of the arterial waveform while engaged with 5 Fr JR4 diagnostic catheter. Ostial RCA 30 to 50%. Luminal irregularities within the proximal RCA. Distal RCA 10%. PDA and PL without significant CAD. TAVIA-3 flow. Moderate sedation: 1. Sedation start time: 12:31 PM 2. Sedation end time: 12:50 PM Procedural notes: 1. Procedure was done via the right radial artery without known complication. 2. There was no attempt to cross the previously documented severely stenotic aortic valve. Impression: 1. Mild and moderate nonobstructive CAD. 2. Severe aortic stenosis based on echo. Plan: 1. Risk factor modification. 2. Consider aortic valve replacement. Hemodynamics Rest Ao:: 106/49 Final Ao: 125/57 LV: n/a Recommendations Recommendations: Valve Replacement Specimens Specimens: None Radiation Exposure (mGy) 1314 mGy. Fluoro time 5.2 min. Contrast (mls) 70 ml Procedural Complication(s) None Disposition PCU I attest to the content of the Intraoperative Record and any orders documented therein. Any exceptions are noted below. [facility] Card Cath Procedure Codes Cardiac Catheterization Procedure 1: Cardiovascular Cath Procedures: 57917 Coronaries Moderate Sedation Procedure 1: Sedation/Anesthesia: 31630 Mod Sedation by the same physician;Init15 Min Child Age 5 & Up Procedure 2: Sedation/Anesthesia: 75931 Mod Sedation by the same physician; Ea [id number] Minutes PG Care Time/CCT Total # of Minutes Spent Total Time Spent with Patient: Total time spent is greater than 50% in coordination of care (as documented) at patient's floor/unit and/or counseling patient:
--- NOTE | 2022-03-03 13:26 | Post Anesthesia Assessment ---
Date of Service March 03, 2022 Post Sedation Assessment Vital Signs Temp Pulse Pulse Resp BP Pulse Ox O2 Del Method 03/03/22 13:10 59 L 18 112/52 L 96 Room Air 03/03/22 13:03 60 18 116/50 L 96 Room Air 03/03/22 08:15 Room Air 03/03/22 07:20 36.6 C 64 19 124/57 L 94 Room Air 03/03/22 07:08 63 03/03/22 03:58 36.7 C 61 18 106/56 L 94 Room Air 03/02/22 22:20 66 03/02/22 23:17 36.8 C 66 18 113/51 L 92 Room Air 03/02/22 20:00 Room Air 03/02/22 22:03 72 117/60 03/02/22 19:22 36.6 C 76 16 126/57 L 96 Room Air 03/02/22 16:28 36.3 C L 66 18 96/51 L 95 Room Air 03/02/22 13:51 67 03/02/22 14:00 Room Air Recovery Score Activity: Moves 4 extremities Respiration: Deep Breath/Cough Circulation: +/-20% PreAnes Value Consciousness: Fully Awake Oxygen Saturation: > 92% On Room Air Post Anesthesia Score: 10 Discharge Sedation Level of Care: Fast Track Phase II Post Sedation Plan On clinical assessment, the patient appears to have tolerated the sedation without complications. Patient is recovering as anticipated. Patient will continue to be monitored by nursing and may be discharged when sedation discharge criteria are met per below protocol. Upon Completions of procedure up to 15 minutes continue every 5 minute vital signs and the P.A.R. score; then discharge to a Phase I or Fast Track to Phase II per the following guidelines: * Discharge Patient to appropriate Phase II area if PAR is 8 or greater or return to pre- procedure baseline. The post - procedure orders will be as directed. * If PAR score is less than 8 or not return to pre-procedure baseline then patient will follow Phase I monitoring till PAR is reached for Phase II. The Phase I may be done in procedure room or may call to secure a Phase I area. * If naloxone or flumazenil are used for reversal, hold in Phase I for continued monitoring from when last reversal dose was given for a minimum of 60 minutes or longer pending the nurse and/or physician discretion of patient condition before discharge to Phase II. Please call the Sedation Physician to re-evaluate and complete post-note for discharge to Phase II area. Do NOT discharge from procedure sedation or Phase 1 until post- sedation evaluation note is complete by procedure /sedation MD Sedation Discharge Instructions to be given to the patient at discharge to home.
--- NOTE | 2022-03-03 13:31 | Cardiology Progress Note ---
Date of Service March 03, 2022 Assessment & Plan (1) Severe aortic stenosis: (2) Non-ST elevation (NSTEMI) myocardial infarction: (3) Acute on chronic heart failure with preserved ejection fraction (HFpEF): (4) CAD (coronary artery disease): (5) CKD (chronic kidney disease): (6) Hypertension: (7) Dyslipidemia: (8) Anemia: Plan ASSESSMENT/PLAN: 1. Severe aortic stenosis: He would like to go to [facility] for TAVR evaluation. No further chest discomfort and breathing back to baseline. This can be done as an outpatient. Cardiology outpatient office staff has been requested to arrange appointment at [facility]. 2. NSTEMI: No severe CAD to suggest acute coronary syndrome. Elevated troponins likely demand ischemia in the setting of severe aortic stenosis and CHF. No systemic anticoagulation therapy, especially in the setting of heme- positive stool and anemia. 3. Acute on chronic heart failure with preserved EF: He appears euvolemic. Start Lasix 40 mg p.o. daily (was on every other day at home). Low-sodium diet. CHF exacerbation likely due to severe aortic stenosis and also dietary indiscretion. Strict I&Os and daily weights while hospitalized. Consider heart failure program as an outpatient. 4. CAD: Nonobstructive. Can continue aspirin if tolerated with his anemia. Continue statin therapy and beta-angela. 5. CKD: Monitor renal function. 6. Hypertension: Blood pressure well controlled. Continue current regimen. 7. Dyslipidemia: Consider high-intensity statin therapy. Goal LDL < 70. 8. Anemia: His hemoglobin was 14.6 on 11/12/2021 and has trended downward to 9.8 during this hospital stay. No obvious bleeding, but heme-positive stool. This is being addressed by primary hospitalist service. 9. Disposition: Cardiology will continue to follow. On discharge, follow with Dr. Garland, his primary hospitalist. Patient care communicated with Dr. Linares, primary hospitalist. Patient's was contacted via telephone and discussed catheterization findings. She was agreeable to move forward. Admission and Anticipated Discharge Date Admission Date: March 01, 2022 Subjective Overall feels much better today. Had cardiac catheterization earlier today which demonstrated nonobstructive CAD. He has not had any further chest discomfort and denies shortness of breath and orthopnea. Overall, feels that breathing was back to baseline. He denies syncope, palpitations, or bleeding. He was unaccompanied. Physical Exam Physical Exam: Gen.: No acute distress. Alert. HEENT: Anicteric sclera. Neck: No appreciable JVD. Cardiac: No ventricular heave. Regular. Normal S1. Soft S2. 3/6 late peaking systolic ejection murmur heard best at right upper sternal border. No rubs or gallops. Pulmonary: Decreased breath sounds bilaterally, but otherwise clear to auscultation bilaterally without wheezes, rales, or rhonchi. Abdomen: Soft, nontender, nondistended, with normoactive bowel sounds. No bruits noted. Extremities: 2+ radial pulses bilaterally. 2+ posterior tibialis pulses bilaterally. Trace bilateral lower extremity edema. No cyanosis. Psychiatric: Affect appears appropriate. Results & Data ([facility]) Vital Signs (Past 12 Hours) Vital Signs Temp Pulse Pulse Resp BP Pulse Ox O2 Del Method 03/03/22 13:10 59 L 18 112/52 L 96 Room Air 03/03/22 13:03 60 18 116/50 L 96 Room Air 03/03/22 08:15 Room Air 03/03/22 07:20 36.6 C 64 19 124/57 L 94 Room Air 03/03/22 07:08 63 03/03/22 03:58 36.7 C 61 18 106/56 L 94 Room Air Intake & Output 03/01/22 03/02/22 03/03/22 03/04/22 06:59 06:59 06:59 06:59 Intake Total 440 / 440 175 / 175 Output Total 3900 / 3900 2650 / 2650 351 / 351 Balance -3460 / -3460 -2475 / -2475 -351 / -351 Weight 214 lb 4.629 oz 213 lb 6.519 oz Laboratory Results Laboratory Results - last 24 hr 03/02/22 03/02/22 03/03/22 18:04 20:26 07:06 WBC RBC Hgb Hct MCV MCH MCHC RDW Std Deviation RDW Coeff of Mac Plt Count MPV Immature Gran % (Auto) Neut % (Auto) Lymph % (Auto) [place] % (Auto) Eos % (Auto) Baso % (Auto) Reticulocyte % (Auto) Neut # (Auto) Lymph # (Auto) [place] # (Auto) Eos # (Auto) Baso # (Auto) Reticulocyte # Immature Gran # (Auto) Sodium Potassium Chloride Carbon Dioxide Anion Gap BUN Creatinine Est Cr Clr Drug Dosing Est GFR ( Amer) Est GFR (Non-Af Amer) BUN/Creatinine Ratio Glucose POC Glucose 114 H 132 H Calcium Iron TIBC Unsaturated IBC Transferrin % Sat Ferritin Troponin I High Sens 2131.6 H* Stool Occult Bld Scrn 03/03/22 03/03/22 03/03/22 08:54 08:54 08:54 WBC 10.83 H RBC 3.60 L Hgb 9.9 L Hct 31.4 L MCV 87.2 MCH 27.5 MCHC 31.5 L RDW Std Deviation 49.0 H RDW Coeff of Mac 15.3 H Plt Count 265 MPV 10.7 Immature Gran % (Auto) 0.4 Neut % (Auto) 69.5 Lymph % (Auto) 18.6 [place] % (Auto) 9.5 Eos % (Auto) 1.6 Baso % (Auto) 0.4 Reticulocyte % (Auto) 3.4 H Neut # (Auto) 7.54 H Lymph # (Auto) 2.01 [place] # (Auto) 1.03 H Eos # (Auto) 0.17 Baso # (Auto) 0.04 Reticulocyte # 0.12 H Immature Gran # (Auto) 0.04 H Sodium 139 Potassium 3.5 Chloride 100 Carbon Dioxide 32 Anion Gap 7 BUN 47 H Creatinine 1.67 H Est Cr Clr Drug Dosing 41.2 Est GFR ( Amer) 44.4 Est GFR (Non-Af Amer) 38.3 BUN/Creatinine Ratio 28.1 H Glucose 117 H POC Glucose Calcium 9.0 Iron 24 L TIBC 385 Unsaturated IBC 361 H Transferrin % Sat 6 L Ferritin 16.1 Troponin I High Sens 1122.0 H* D Stool Occult Bld Scrn 03/03/22 03/03/22 03/03/22 11:03 16:13 Unknown WBC RBC Hgb Hct MCV MCH MCHC RDW Std Deviation RDW Coeff of Mac Plt Count MPV Immature Gran % (Auto) Neut % (Auto) Lymph % (Auto) [place] % (Auto) Eos % (Auto) Baso % (Auto) Reticulocyte % (Auto) Neut # (Auto) Lymph # (Auto) [place] # (Auto) Eos # (Auto) Baso # (Auto) Reticulocyte # Immature Gran # (Auto) Sodium Potassium Chloride Carbon Dioxide Anion Gap BUN Creatinine Est Cr Clr Drug Dosing Est GFR ( Amer) Est GFR (Non-Af Amer) BUN/Creatinine Ratio Glucose POC Glucose 137 H 170 H Calcium Iron TIBC Unsaturated IBC Transferrin % Sat Ferritin Troponin I High Sens Stool Occult Bld Scrn Positive A Diagnostic Findings Cardiac Cath 03/03/22: Coronary angiography: 1. Left main: Calcifications noted. Ostial left main 30 to 40%. Distal left main approximately 30%. 2. Left anterior descending: Ostial LAD 40 to 50%. Proximal LAD 20 to 30%. TAVIA-3 flow. No significant CAD in the remainder of the LAD or diagonal vessel. 3. Circumflex: Mid circumflex 20%. High OM1 without significant CAD. Very small caliber OM 2 and OM 3. 4. Right coronary artery: RCA is large and dominant. There was ventricularization of the arterial waveform while engaged with 5 Fr JR4 diagnostic catheter. Ostial RCA 30 to 50%. Luminal irregularities within the proximal RCA. Distal RCA 10%. PDA and PL without significant CAD. TAVIA-3 flow. Telemetry personally reviewed: Sinus rhythm. Nonsustained atrial tachycardia. Medications Administered Current Inpatient Medications Acetaminophen (Acetaminophen 325 Mg Tab) 650 mg PO Q4H PRN PRN Reason: Pain or Fever Stop: 03/31/22 11:47 Last Admin: 03/01/22 13:45 Dose: 650 mg Aspirin (Aspirin 81 Mg Ectab) 81 mg PO DAILY [facility] Stop: 04/02/22 08:59 Last Admin: 03/03/22 08:57 Dose: 81 mg Dextrose (Dextrose 50% 50 Ml Syringe) 25 - 50 ml IV UD PRN; Protocol PRN Reason: Hypoglycemia Protocol Stop: 03/31/22 11:47 Furosemide (Furosemide 40 Mg/4 Ml Vial) 40 mg IV BID17 [facility] Stop: 03/31/22 16:59 Last Admin: 03/02/22 17:30 Dose: 40 mg Gabapentin (Gabapentin 100 Mg Cap) 100 mg PO BID [facility] Stop: 03/31/22 20:59 Last Admin: 03/03/22 08:56 Dose: 100 mg Glucagon (Glucagon For Inj 1 Mg Vial) 1 mg SQ UD PRN; Protocol PRN Reason: Hypoglycemia Protocol Stop: 03/31/22 11:47 Glucose (Glucose 40% Gel 15 Gm Tube) 15 - 30 gm PO UD PRN; Protocol PRN Reason: Hypoglycemia Protocol Stop: 03/31/22 11:47 Glucose (Glucose 10 Tab/Tube) 4 - 8 tab PO UD PRN; Protocol PRN Reason: Hypoglycemia Treatment Stop: 03/31/22 11:47 Guaifenesin (Guaifenesin 600 Mg Tabcr) 1,200 mg PO BID [facility] Stop: 03/31/22 20:59 Last Admin: 03/03/22 08:56 Dose: 1,200 mg Heparin Sodium (Porcine) (Heparin Sod 5,000 Unit/0.5 Ml Vial) 5,000 units SC Q8 [facility] Stop: 04/01/22 13:59 Last Admin: 03/02/22 21:46 Dose: 5,000 units Iron Sucrose 300 mg/ Sodium (Chloride) 265 mls @ 176.667 mls/hr IV TODAY ONE Stop: 03/04/22 10:29 Insulin Aspart (Insulin Aspart Per Unit) 0 units SC ACHS [facility]; Protocol Stop: 03/31/22 11:47 Last Admin: 03/03/22 17:24 Dose: 13 units Insulin Glargine (Lantus Per Unit Charge) 15 units SQ BID [facility]; Protocol Stop: 03/31/22 20:59 Last Admin: 03/03/22 09:10 Dose: 15 units Isosorbide Mononitrate (Isosorbide [place] Extended Rel 60 Mg Tabcr) 60 mg PO DAILY [facility] Stop: 04/01/22 11:59 Last Admin: 03/03/22 08:56 Dose: 60 mg Metoprolol Tartrate (Metoprolol Tartrate 50 Mg Tab) 50 mg PO BID [facility] Stop: 03/31/22 20:59 Last Admin: 03/03/22 08:57 Dose: 50 mg Miscellaneous (Carbohydrates For Hypoglycemia ) 15 - 30 gm PO UD PRN PRN Reason: Hypoglycemia Protocol Stop: 03/31/22 11:47 Miscellaneous Information (Pharmacy Glycemic Mgmt Consult) 1 each N/A UD PRN PRN Reason: Consult Stop: 03/31/22 11:47 Nitroglycerin (Nitroglycerin 2% Ointment 30gm Tube) 1 inch EXT Q6 [facility] Stop: 03/31/22 11:59 Last Admin: 03/03/22 17:15 Dose: Not Given Polyethylene Glycol (Polyethylene (Miralax) 17 Gm Pack) 17 gm PO DAILY PRN PRN Reason: Constipation Stop: 03/31/22 11:47 Potassium Chloride (Potassium Chloride Crtab 20 Meq Tabcr) 40 meq PO Q2D [facility] Stop: 04/02/22 08:59 Last Admin: 03/03/22 08:57 Dose: 40 meq Simvastatin (Simvastatin 20 Mg Tab) 20 mg PO HS [facility] Stop: 03/31/22 20:59 Last Admin: 03/02/22 21:47 Dose: 20 mg Umeclidinium/Vilanterol (Umeclidinium/Vilanterol 62.5/25mcg 7 Puffs/Inhaler) 1 puffs INH DAILY [facility] Stop: 04/01/22 08:59 Last Admin: 03/03/22 08:58 Dose: 1 puffs PG Care Time/CCT Total # of Minutes Spent Total Time Spent with Patient: Total time spent is greater than 50% in coordination of care (as documented) at patient's floor/unit and/or counseling patient: Coding Level of Care Code 18540 Subseq Hosp Care Lvl 3 Diagnoses Severe aortic stenosis I35.0 Non-ST elevation (NSTEMI) myocardial infarction I21.4 Acute on chronic heart failure with preserved ejection fraction (HFpEF) I50.33 CAD (coronary artery disease) I25.10 CKD (chronic kidney disease) N18.9 Hypertension I10 Dyslipidemia E78.5 Anemia D64.9
[2022-03-03] MEDS: SIMVASTATIN 20 MG TAB PO SCH (19:45)
[2022-03-04] MEDS: NITROGLYCERIN 2% OINTMENT 30GM TUBE EXT SCH ×4 (00:26→17:56)
[2022-03-04 06:45] LABS: Albumin Globulin Ratio 1.4 (0.9-2); Albumin Level 3.7 gm/dl (3.4-5.0); BUN Creatinine Ratio 25.8 (10-20); Bilirubin,Total 0.8 mg/dl (0.2-1.0); Calcium 8.9 mg/dl (8.5-10.1); Creatinine Clr Calc Pharmacy 44.4 ml/min; Est GFR (African American) 48.6 ml/min; Globulin 2.6 gm/dl (2.5-4.0); Magnesium 2.2 mg/dl (1.7-2.4); Potassium 3.9 mmol/L (3.5-5.1); Total Protein 6.3 gm/dl (6.0-8.3)
[2022-03-04 07:09] LABS: Folate (Folic Acid) 18.41 ng/ml (>5.38)
[2022-03-04 07:29] LABS: Basophils # (auto) 0.05 K/uL (0-0.2); Basophils % (auto) 0.5 %; Eosinophils # (auto) 0.12 K/uL (0-0.50); Eosinophils % (auto) 1.2 %; Hematocrit (blood only) 31.5 % (40.1-51.0); Hemoglobin 9.6 g/dl (14.0-18.0); Immature Granulocytes # (auto) 0.05 K/uL (0.00-0.02); Immature Granulocytes % (auto) 0.5 %; Lymphocytes # (auto) 1.17 K/uL (1.2-3.4); Lymphocytes % (auto) 11.8 %; Mean Corpuscular Hemoglobin 26.8 pg (25.0-34.0); Mean Corpuscular Hgb Conc 30.5 g/dL (32.0-36.0); Mean Platelet Volume 10.6 fL (9.4-12.4); Monocytes # (auto) 0.96 K/uL (0.24-0.82); Monocytes % (auto) 9.7 %; Neutrophils # (auto) 7.56 K/uL (1.4-6.5); Neutrophils % (auto) 76.3 %; Platelet Count 279 K/uL (130-400); RDW Coefficient of Variation 15.1 % (11.5-14.5); RDW Standard Deviation 48.9 fL (36.4-46.3); Red Blood Count 3.58 M/uL (4.63-6.08); White Blood Count 9.91 K/ul (4.8-10.8)
[2022-03-04] MEDS: METOPROLOL TARTRATE 50 MG TAB PO SCH ×2 (08:15→21:37)
[2022-03-04] MEDS: ISOSORBIDE MONO EXTENDED REL 60 MG TABCR PO SCH (08:16)
[2022-03-04] MEDS: FUROSEMIDE 40 MG TAB PO SCH (08:16)
[2022-03-04] MEDS: ASPIRIN 81 MG ECTAB PO SCH (08:16)
[2022-03-04] MEDS: UMECLIDINIUM/VILANTEROL 62.5/25MCG 7 PUFFS/INHALER INH SCH (08:17)
[2022-03-04] MEDS: GABAPENTIN 100 MG CAP PO SCH ×2 (08:17→21:37)
[2022-03-04] MEDS: guaiFENesin 600 MG TABCR PO SCH ×2 (08:17→21:38)
[2022-03-04] MEDS: INSULIN ASPART PER UNIT SC SCH ×4 (08:18→21:22)
[2022-03-04] MEDS: LANTUS PER UNIT CHARGE SQ SCH ×2 (08:19→21:27)
[2022-03-04] MEDS ORDERED: IRON SUCROSE 300 MG in SODIUM CHLORIDE 0.9% 250 ML IV ONE (09:00)
--- NOTE | 2022-03-04 10:53 | Cardiology Progress Note ---
Date of Service March 04, 2022 Assessment & Plan (1) Severe aortic stenosis: (2) Non-ST elevation (NSTEMI) myocardial infarction: (3) Acute on chronic heart failure with preserved ejection fraction (HFpEF): (4) CAD (coronary artery disease): (5) CKD (chronic kidney disease): (6) Hypertension: (7) Dyslipidemia: (8) Anemia: Plan ASSESSMENT/PLAN: 1. Severe aortic stenosis: He would like to go to [facility] for TAVR evaluation. This can be done as an outpatient. Cardiology outpatient office staff has been requested to arrange appointment at [facility]. 2. NSTEMI: No severe CAD to suggest acute coronary syndrome. Elevated troponins likely demand ischemia in the setting of severe aortic stenosis and CHF. No systemic anticoagulation therapy, especially in the setting of heme- positive stool and anemia. 3. Acute on chronic heart failure with preserved EF: He appears euvolemic. Intravenous Lasix discontinued. Started Lasix 40 mg p.o. daily on 03/04/2022 (was on every other day at home). Low-sodium diet. CHF exacerbation likely due to severe aortic stenosis and also dietary indiscretion. Strict I&Os and daily weights while hospitalized. Consider heart failure program as an outpatient. 4. CAD: Nonobstructive. Can continue aspirin if tolerated with his anemia. Continue statin therapy and beta-angela. 5. CKD: Monitor renal function. 6. Hypertension: Blood pressure well controlled. Continue current regimen. 7. Dyslipidemia: Consider high-intensity statin therapy. Goal LDL < 70. 8. Anemia: His hemoglobin was 14.6 on 11/12/2021 and has trended downward to 9.8 during this hospital stay. No obvious bleeding, but heme-positive stool. This is being addressed by primary hospitalist service. Would recommend GI input at some point, especially with upcoming evaluation for aortic valve replacement. 9. Disposition: Cardiology will sign off at this time. On discharge, follow with Dr. Garland, his primary hospitalist. Patient care communicated with Dr. Lara, primary hospitalist. Admission and Anticipated Discharge Date Admission Date: March 01, 2022 Subjective Patient seen this morning. He had an episode of chest discomfort after eating breakfast, which is his first episode in the past 2 days. He denies orthopnea, shortness of breath, syncope, near-syncope, palpitations. He was alone in his hospital room. Physical Exam Physical Exam: Gen.: No acute distress. Alert. HEENT: Anicteric sclera. Neck: No appreciable JVD. Cardiac: No ventricular heave. Regular. Normal S1. Soft S2. 3/6 late peaking systolic ejection murmur heard best at right upper sternal border. No rubs or gallops. Pulmonary: Decreased breath sounds bilaterally, but otherwise clear to auscultation bilaterally without wheezes, rales, or rhonchi. Abdomen: Soft, nontender, nondistended, with normoactive bowel sounds. No bruits noted. Extremities: 2+ radial pulses bilaterally. Right radial cath site is clean, dry, and without erythema or discharge. 2+ posterior tibialis pulses bilaterally. Trace bilateral lower extremity edema. No cyanosis. Psychiatric: Affect appears appropriate. Results & Data ([facility]) Vital Signs (Past 12 Hours) Vital Signs Temp Pulse Pulse Resp BP Pulse Ox O2 Del Method 03/04/22 07:24 36.7 C 77 16 149/71 H 95 Room Air 03/04/22 03:51 36.8 C 62 16 121/56 L 95 Nasal Cannula 03/04/22 00:00 65 03/04/22 00:00 36.6 C 65 16 129/64 95 Room Air Intake & Output 03/02/22 03/03/22 03/04/22 03/05/22 06:59 06:59 06:59 06:59 Intake Total 440 / 440 175 / 175 120 / 120 265 / 265 Output Total 3900 / 3900 2650 / 2650 1651 / 1651 Balance -3460 / -3460 -2475 / -2475 -1531 / -1531 265 / 265 Weight 214 lb 4.629 oz 213 lb 6.519 oz 213 lb 13.574 oz Laboratory Results Laboratory Results - last 24 hr 03/03/22 03/03/22 03/04/22 16:13 20:55 05:55 WBC 9.91 RBC 3.58 L Hgb 9.6 L Hct 31.5 L MCV 88.0 MCH 26.8 MCHC 30.5 L RDW Std Deviation 48.9 H RDW Coeff of Mac 15.1 H Plt Count 279 MPV 10.6 Immature Gran % (Auto) 0.5 Neut % (Auto) 76.3 Lymph % (Auto) 11.8 [place] % (Auto) 9.7 Eos % (Auto) 1.2 Baso % (Auto) 0.5 Neut # (Auto) 7.56 H Lymph # (Auto) 1.17 L [place] # (Auto) 0.96 H Eos # (Auto) 0.12 Baso # (Auto) 0.05 Immature Gran # (Auto) 0.05 H Sodium Potassium Chloride Carbon Dioxide Anion Gap BUN Creatinine Est Cr Clr Drug Dosing Est GFR ( Amer) Est GFR (Non-Af Amer) BUN/Creatinine Ratio Glucose POC Glucose 170 H 94 Calcium Magnesium Total Bilirubin AST ALT Alkaline Phosphatase Total Protein Albumin Globulin Albumin/Globulin Ratio Vitamin B12 Folate 03/04/22 03/04/22 03/04/22 05:55 05:55 07:21 WBC RBC Hgb Hct MCV MCH MCHC RDW Std Deviation RDW Coeff of Mac Plt Count MPV Immature Gran % (Auto) Neut % (Auto) Lymph % (Auto) [place] % (Auto) Eos % (Auto) Baso % (Auto) Neut # (Auto) Lymph # (Auto) [place] # (Auto) Eos # (Auto) Baso # (Auto) Immature Gran # (Auto) Sodium 138 Potassium 3.9 Chloride 101 Carbon Dioxide 30 Anion Gap 7 BUN 40 H Creatinine 1.55 H Est Cr Clr Drug Dosing 44.4 Est GFR ( Amer) 48.6 Est GFR (Non-Af Amer) 42.0 BUN/Creatinine Ratio 25.8 H Glucose 112 H POC Glucose 137 H Calcium 8.9 Magnesium 2.2 Total Bilirubin 0.8 AST 12 L ALT 14 Alkaline Phosphatase 55 Total Protein 6.3 Albumin 3.7 Globulin 2.6 Albumin/Globulin Ratio 1.4 Vitamin B12 596 Folate 18.41 03/04/22 11:01 WBC RBC Hgb Hct MCV MCH MCHC RDW Std Deviation RDW Coeff of Mac Plt Count MPV Immature Gran % (Auto) Neut % (Auto) Lymph % (Auto) [place] % (Auto) Eos % (Auto) Baso % (Auto) Neut # (Auto) Lymph # (Auto) [place] # (Auto) Eos # (Auto) Baso # (Auto) Immature Gran # (Auto) Sodium Potassium Chloride Carbon Dioxide Anion Gap BUN Creatinine Est Cr Clr Drug Dosing Est GFR ( Amer) Est GFR (Non-Af Amer) BUN/Creatinine Ratio Glucose POC Glucose 183 H Calcium Magnesium Total Bilirubin AST ALT Alkaline Phosphatase Total Protein Albumin Globulin Albumin/Globulin Ratio Vitamin B12 Folate Diagnostic Findings Telemetry personally reviewed: Sinus rhythm. No noted arrhythmia in the past 24 hours. Medications Administered Current Inpatient Medications Acetaminophen (Acetaminophen 325 Mg Tab) 650 mg PO Q4H PRN PRN Reason: Pain or Fever Stop: 03/31/22 11:47 Last Admin: 03/01/22 13:45 Dose: 650 mg Aspirin (Aspirin 81 Mg Ectab) 81 mg PO DAILY [facility] Stop: 04/02/22 08:59 Last Admin: 03/04/22 08:16 Dose: 81 mg Dextrose (Dextrose 50% 50 Ml Syringe) 25 - 50 ml IV UD PRN; Protocol PRN Reason: Hypoglycemia Protocol Stop: 03/31/22 11:47 Furosemide (Furosemide 40 Mg Tab) 40 mg PO QAM [facility] Stop: 04/03/22 08:59 Last Admin: 03/04/22 08:16 Dose: 40 mg Gabapentin (Gabapentin 100 Mg Cap) 100 mg PO BID [facility] Stop: 03/31/22 20:59 Last Admin: 03/04/22 08:17 Dose: 100 mg Glucagon (Glucagon For Inj 1 Mg Vial) 1 mg SQ UD PRN; Protocol PRN Reason: Hypoglycemia Protocol Stop: 03/31/22 11:47 Glucose (Glucose 40% Gel 15 Gm Tube) 15 - 30 gm PO UD PRN; Protocol PRN Reason: Hypoglycemia Protocol Stop: 03/31/22 11:47 Glucose (Glucose 10 Tab/Tube) 4 - 8 tab PO UD PRN; Protocol PRN Reason: Hypoglycemia Treatment Stop: 03/31/22 11:47 Guaifenesin (Guaifenesin 600 Mg Tabcr) 1,[address] [facility] Stop: 03/31/22 20:59 Last Admin: 03/04/22 08:17 Dose: 1,200 mg Heparin Sodium (Porcine) (Heparin Sod 5,000 Unit/0.5 Ml Vial) 5,000 units SC Q8 [facility] Stop: 04/01/22 13:59 Last Admin: 03/02/22 21:46 Dose: 5,000 units Insulin Aspart (Insulin Aspart Per Unit) [address] [facility]; Protocol Stop: 03/31/22 11:47 Last Admin: 03/04/22 08:18 Dose: 6 units Insulin Glargine (Lantus Per Unit Charge) [address] [facility]; Protocol Stop: 03/31/22 20:59 Last Admin: 03/04/22 08:19 Dose: 15 units Isosorbide Mononitrate (Isosorbide [place] Extended Rel 60 Mg Tabcr) [address] [facility] Stop: 04/01/22 11:59 Last Admin: 03/04/22 08:16 Dose: 60 mg Metoprolol Tartrate (Metoprolol Tartrate 50 Mg Tab) [address] [facility] Stop: 03/31/22 20:59 Last Admin: 03/04/22 08:15 Dose: 50 mg Miscellaneous (Carbohydrates For Hypoglycemia ) 15 - 30 gm PO UD PRN PRN Reason: Hypoglycemia Protocol Stop: 03/31/22 11:47 Miscellaneous Information (Pharmacy Glycemic Mgmt Consult) 1 each N/A UD PRN PRN Reason: Consult Stop: 03/31/22 11:47 Nitroglycerin (Nitroglycerin 2% Ointment 30gm Tube) 1 inch EXT Q6 [facility] Stop: 03/31/22 11:59 Last Admin: 03/04/22 05:58 Dose: 1 inch Pantoprazole Sodium (Pantoprazole 40 Mg Tab) [address] [facility] Stop: 04/03/22 20:59 Polyethylene Glycol (Polyethylene (Miralax) 17 Gm Pack) 17 gm PO DAILY PRN PRN Reason: Constipation Stop: 03/31/22 11:47 Potassium Chloride (Potassium Chloride Crtab 20 Meq Tabcr) 40 meq PO Q2D [facility] Stop: 04/02/22 08:59 Last Admin: 03/03/22 08:57 Dose: 40 meq Simvastatin (Simvastatin 20 Mg Tab) 20 mg PO HS [facility] Stop: 03/31/22 20:59 Last Admin: 03/03/22 19:45 Dose: 20 mg Umeclidinium/Vilanterol (Umeclidinium/Vilanterol 62.5/25mcg 7 Puffs/Inhaler) [address] [facility] Stop: 04/01/22 08:59 Last Admin: 03/04/22 08:17 Dose: 1 puffs PG Care Time/CCT Total # of Minutes Spent Total Time Spent with Patient: Total time spent is greater than 50% in coordination of care (as documented) at patient's floor/unit and/or counseling patient: Coding Level of Care Code 23951 Subseq Hosp Care Lvl 3 Diagnoses Severe aortic stenosis I35.0 Non-ST elevation (NSTEMI) myocardial infarction I21.4 Acute on chronic heart failure with preserved ejection fraction (HFpEF) I50.33 CAD (coronary artery disease) I25.10 CKD (chronic kidney disease) N18.9 Hypertension I10 Dyslipidemia E78.5 Anemia D64.9
--- NOTE | 2022-03-04 11:41 | Hospitalist Progress Note ---
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 TTE 02/08/2022: EF 55-60%, severe . Valve area 0.6 PFT 03/01/2022: FVC 44%, FEV1 46%, FEV1/FVC 103%. Consistent with moderate restrictive lung disease and air trapping. Insignificant bronchodilator response Chest pain, Cardiology consulted. Continuing aspirin, beta-angela, statin. Cardiac cath 03/03/22 mild to moderate non occlusive CAD cardiology recommends progress to TAVR evaluation, but there is some concerns that the pt maybe having some GI blood loss, this may make anticoagulation a higher risk for surgery but to eval for GI loss will also make anesthesia high risk. may need to have eval at tertiary care center Anemia Iron consistent with iron deficiency anemia. Likely some element of CKD as well B12 normal, B12/folate replete Iron supplementation Venofer Stool occult blood positive, Last colonoscopy more than 10 years ago. DM A1c this month <7%, well controlled Goal BSG 675159 Hold home Trulicity basal bolus insulin A1c this month 6.3% well-controlled Hx COVID-19 COVID symptoms began 02/03/2022 COVID-positive on admission 02/08/2022 Received dexamethasone in ER, defer additional steroids at this time Severe aortic stenosis Pulmonary hypertension With severe aortic stenosis, CHF Predominantly restrictive lung disease, history of obstructive component Continue Anoro/equivalent conversion DuoNebs as needed Flutter valve, incentive spirometry Remains without signs of COPD exacerbation Hypertension On Lopressor HCTZ/triamterene held due to DEBORA HLD Continue statin Pulmonary nodule Follows with pulmonary, repeat CT scan pending as outpatient DVT prophylaxis: Heparin with DEBORA Diet: Heart healthy/DM/low-sodium, n.p.o. today pending cath Disposition: PCU CODE STATUS: DNR/DNI, confirmed with patient at bedside (2) Acute respiratory failure with hypoxia: (3) CAD (coronary artery disease): (4) CHF exacerbation: (5) Acute kidney injury superimposed on CKD: (6) Diabetes: (7) Dyslipidemia: (8) Elevated troponin: (9) Gastro-esophageal reflux: (10) High cholesterol: (11) History of lobectomy of lung: (12) Hypertension: (13) Obstructive sleep apnea syndrome: (14) Primary adenocarcinoma of upper lobe of left lung: (15) Pulmonary hypertension: (16) S/P lobectomy of lung: (17) Anemia: (18) Valvular disease: Admission and Anticipated Discharge Date Admission Date: March 01, 2022 Subjective PT HAS MANY CONCERNS ABOUT HIS OVERALL HEALTH SITUATION, SEEMS CONFUSED ABOUT THE NEXT STEPS OF THE PROCESS. DID HAVE SOME POST PRANDIALDISCOMFORT NOT CLEAR IF ITS FROM GI OR CARDIAC, HIS SEVERE MAY MAKE ANY GI EVALUATION MORE DIFFICULT. CURRENTLY PAIN FREE Review of Systems Review of Systems: Mild distress and fatigue no headache, no visual changes no speech or swallowing issues post prandial epigastric/chest pain without associated symptoms no shortness of breath, cough or wheezes no abdominal pain, nausea or vomiting, diarrhea or constipation no dysuria, hematuria or frequency no focal joint pain or swelling no back pain, CVA tenderness or radicular pain no bruising, bleeding or rashes no focal signs of weakness or numbness or altered sensation no complaints of anxiety or depression.. Physical Exam Physical Exam: The patient appeared well nourished and normally developed. Vital signs as documented. Head exam is normocephalic atraumatic Neck is without JVD, thyromegaly, or carotid bruits. Lungs are clear to auscultation, no focal loss of breath sounds Cardiac exam, Rhythm is regular..systolic ejection murmur Abdominal exam reveals normal bowel sounds, soft non tender, no masses Extremities are trace edematous and both pedal pulses are present Neurologic exam is alert and oriented, no focal loss of strength or sensation Skin is without bruises or rashes Psychologically is without concerns for anxiety or depression.. Results & Data Results & Data ([facility]) Vital Signs (Past 12 Hours) Vital Signs Temp Pulse Pulse Resp BP Pulse Ox O2 Del Method 03/04/22 11:22 98.2 F 62 17 118/55 L 96 Room Air 03/04/22 10:43 Room Air 03/04/22 07:24 98.1 F 77 16 149/71 H 95 Room Air 03/04/22 03:51 98.2 F 62 16 121/56 L 95 Nasal Cannula 03/04/22 00:00 65 03/04/22 00:00 97.9 F 65 16 129/64 95 Room Air PG Care Time/CCT Total # of Minutes Spent Total Time Spent with Patient: Total time spent is greater than 50% in coordination of care (as documented) at patient's floor/unit and/or counseling patient: Coding Level of Care Code 24851 Subseq Hosp Care Lvl 3 Diagnoses Heart failure with preserved ejection fraction I50.30 Acute respiratory failure with hypoxia J96.01 CAD (coronary artery disease) I25.10 CHF exacerbation I50.9 Acute kidney injury superimposed on CKD N17.9; N18.9 Diabetes E11.9 Dyslipidemia E78.5 Elevated troponin R77.8 Gastro-esophageal reflux K21.9 High cholesterol E78.00 History of lobectomy of lung Z90.2 Hypertension I10 Obstructive sleep apnea syndrome G47.33 Primary adenocarcinoma of upper lobe of left lung C34.12 Pulmonary hypertension I27.20 S/P lobectomy of lung Z90.2 Anemia D64.9 Valvular disease I38
[2022-03-04] MEDS ORDERED: PANTOprazole 40 MG in SYRINGE 0 ML IV ONE (12:00)
--- NOTE | 2022-03-04 12:06 | Pharmacy Report ---
Pharmacy Glycemic Short Note 2 - Date of Service March 04, 2022 - Glycemic Short BSG Results (Last 24 hours): 03/03/22 03/03/22 03/04/22 16:13 20:55 05:55 Glucose 112 H POC Glucose 170 H 94 03/04/22 03/04/22 07:21 11:01 Glucose POC Glucose 137 H 183 H OUTPATIENT ANTIDIABETIC REGIMEN: * Humalog Mix 75/25: * 95 units SC every morning * 60 units SC every evening * Trulicity 0.75 mg SC every Wednesday * HbA1c = 6.3% (02/09/22) ASSESSMENT: 03/04: * Patient received 43 units of insulin yesterday, 30 of which were basal. Fasting BSG remains well controlled. Will continue with current lantus and novolog orders. 03/02: * Juancho received a total of 75 units of insulin yesterday - 35 units basal + 40 units bolus. BSGs were elevated: 289-311-278 mg/dL. * Fasting BSG improved to 162 mg/dL this AM. Will continue with current basal dose which will provide an approximate 10% reduction from yesterday. This is acceptable given significant drop in fasting BSG. * No change to Novolog today. Remains off steroids. 03/01: * 81 yo M admitted today for shortness of breath secondary to heart failure exacerbation. Pharmacy has been consulted to assist with inpatient glycemic management. 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 Ordered a type 2 diabetic diet; however, is functionally NPO secondary to BiPAP use. Did receive 6 mg of IV dexameth asone in the ED. No further steroids have been ordered. * BSG was 289 mg/dL around lunchtime. Patient received 20 units of Lantus in the ED. * Basal and bolus insulin will be started utilizing previous admission data. Basal dose will be much lower than home doses secondary to patient functionally being NPO. During previous admission in January 2022, patient was switched to NPH prior to discharge to help transition back to home dose of Humalog Mix. Will consider this strategy again. PLAN FOR INPATIENT GLYCEMIC CONTROL: * Basal insulin * Lantus 15 units SC BID * Bolus insulin * NovoLog per scale ACHS or Q6hrs while NPO * Goal Range: Low 110 mg/dL - High 140 mg/dL * Correction Factor: 15 mg/dL/unit * Nutritional / Prandial insulin per carb ratio of 1 unit per 5 grams CHO consumed
[2022-03-04] MEDS: SIMVASTATIN 20 MG TAB PO SCH (21:39)
[2022-03-04] MEDS: PANTOprazole 40 MG TAB PO SCH (21:39)
[2022-03-05] MEDS: NITROGLYCERIN 2% OINTMENT 30GM TUBE EXT SCH ×4 (00:09→17:33)
[2022-03-05 06:08] LABS: Hematocrit (blood only) 28.8 % (40.1-51.0); Mean Corpuscular Hemoglobin 27.3 pg (25.0-34.0); Mean Corpuscular Hgb Conc 31.3 g/dL (32.0-36.0); Mean Corpuscular Volume 87.3 fL (80.0-100.0); Platelet Count 265 K/uL (130-400); RDW Coefficient of Variation 15.1 % (11.5-14.5); RDW Standard Deviation 48.5 fL (36.4-46.3); White Blood Count 8.59 K/ul (4.8-10.8)
[2022-03-05 06:32] LABS: BUN Creatinine Ratio 21.5 (10-20); Calcium 8.8 mg/dl (8.5-10.1); Creatinine Clr Calc Pharmacy 46.1 ml/min; Potassium 3.4 mmol/L (3.5-5.1)
--- NOTE | 2022-03-05 07:33 | Hospitalist Progress Note ---
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 Certainly this strategy does not rule out colonic issues as his last colonoscopy was over 10 years ago however he does not have any bright red blood per rectum although did have a positive Hemoccult Acute on chronic hypoxic respiratory failure, 2/2 heart failure with preserved ejection fraction/severe with history of predominantly restrictive lung disease TTE 10/2021 with severe , patient has refused TAVR in the past. TTE 02/08/2022: EF 55-60%, severe . Valve area 0.6 PFT 03/01/2022: FVC 44%, FEV1 46%, FEV1/FVC 103%. Consistent with moderate restrictive lung disease and air trapping. Insignificant bronchodilator response Chest pain, Cardiology consulted. Continuing aspirin, beta-angela, statin. Cardiac cath 03/03/22 mild to moderate non occlusive CAD cardiology recommends progress to TAVR evaluation, but there is some concerns that the pt maybe having some GI blood loss, this may make anticoagulation a higher risk for surgery but to eval for GI loss will also make anesthesia high risk. may need to have eval at tertiary care center Anemia Iron consistent with iron deficiency anemia. Likely some element of CKD con cern for possible some blood loss. B12 normal, B12/folate replete Iron supplementation Venofer DM A1c this month <7%, well controlled Goal BSG [id number] Hold home Trulicity basal bolus insulin A1c this month 6.3% well-controlled Hx COVID-19 COVID symptoms began 02/03/2022 COVID-positive on admission 02/08/2022 Received dexamethasone in ER, defer additional steroids at this time Severe aortic stenosis Pulmonary hypertension With severe aortic stenosis, CHF Predominantly restrictive lung disease, history of obstructive component Continue Anoro/equivalent conversion DuoNebs as needed Flutter valve, incentive spirometry Remains without signs of COPD exacerbation Hypertension On Lopressor HCTZ/triamterene held due to DEBORA HLD Continue statin Pulmonary nodule Follows with pulmonary, repeat CT scan pending as outpatient DVT prophylaxis: Heparin with DEBORA Diet: Heart healthy/DM/low-sodium, n.p.o. today pending cath Disposition: PCU CODE STATUS: DNR/DNI, confirmed with patient at bedside (2) Acute respiratory failure with hypoxia: (3) CAD (coronary artery disease): (4) CHF exacerbation: (5) Acute kidney injury superimposed on CKD: (6) Diabetes: (7) Dyslipidemia: (8) Elevated troponin: (9) Gastro-esophageal reflux: (10) High cholesterol: (11) History of lobectomy of lung: (12) Hypertension: (13) Obstructive sleep apnea syndrome: (14) Primary adenocarcinoma of upper lobe of left lung: (15) Pulmonary hypertension: (16) S/P lobectomy of lung: (17) Anemia: Admission and Anticipated Discharge Date Admission Date: March 01, 2022 Subjective Patient's had very little postprandial discomfort today did ambulate well he was having no additional dark bowel movements his hemoglobin did drop almost 2 g since admission. Having abdominal pain Review of Systems Review of Systems: Mild distress and fatigue no headache, no visual changes no speech or swallowing issues post prandial epigastric/chest pain without associated symptoms has lessened no shortness of breath, cough or wheezes no abdominal pain, nausea or vomiting, diarrhea or constipation no dysuria, hematuria or frequency no focal joint pain or swelling no back pain, CVA tenderness or radicular pain no bruising, bleeding or rashes no focal signs of weakness or numbness or altered sensation no complaints of anxiety or depression.. Physical Exam Physical Exam: The patient appeared well nourished and normally developed. Vital signs as documented. Head exam is normocephalic atraumatic Neck is without JVD, thyromegaly, or carotid bruits. Lungs are clear to auscultation, no focal loss of breath sounds Cardiac exam, Rhythm is regular..systolic ejection murmur Abdominal exam reveals normal bowel sounds, soft non tender, no masses Extremities are trace edematous and both pedal pulses are present Neurologic exam is alert and oriented, no focal loss of strength or sensation Skin is without bruises or rashes Psychologically is without concerns for anxiety or depression.. Results & Data Results & Data ([facility]) Vital Signs (Past 12 Hours) Vital Signs Temp Pulse Pulse Resp BP Pulse Ox O2 Del Method 03/05/22 07:27 70 03/05/22 03:57 97.5 F L 67 16 113/49 L 96 Room Air 03/04/22 22:18 78 03/04/22 23:18 98.2 F 68 16 115/54 L 93 Room Air 03/04/22 20:00 Room Air 03/04/22 21:35 83 130/53 L 03/04/22 19:41 97.5 F L 64 18 128/67 98 Room Air PG Care Time/CCT Total # of Minutes Spent Total Time Spent with Patient: Total time spent is greater than 50% in coordination of care (as documented) at patient's floor/unit and/or counseling patient: Coding Level of Care Code 13751 Subseq Hosp Care Lvl 3 Diagnoses Heart failure with preserved ejection fraction I50.30 Acute respiratory failure with hypoxia J96.01 CAD (coronary artery disease) I25.10 CHF exacerbation I50.9 Acute kidney injury superimposed on CKD N17.9; N18.9 Diabetes E11.9 Dyslipidemia E78.5 Elevated troponin R77.8 Gastro-esophageal reflux K21.9 High cholesterol E78.00 History of lobectomy of lung Z90.2 Hypertension I10 Obstructive sleep apnea syndrome G47.33 Primary adenocarcinoma of upper lobe of left lung C34.12 Pulmonary hypertension I27.20 S/P lobectomy of lung Z90.2 Anemia D64.9
[2022-03-05] MEDS: FUROSEMIDE 40 MG TAB PO SCH (07:54)
[2022-03-05] MEDS: PANTOprazole 40 MG TAB PO SCH ×2 (07:54→20:29)
[2022-03-05] MEDS: guaiFENesin 600 MG TABCR PO SCH ×2 (07:55→20:28)
[2022-03-05] MEDS: ASPIRIN 81 MG ECTAB PO SCH (07:55)
[2022-03-05] MEDS: ISOSORBIDE MONO EXTENDED REL 60 MG TABCR PO SCH (07:55)
[2022-03-05] MEDS: METOPROLOL TARTRATE 50 MG TAB PO SCH ×2 (07:55→20:29)
[2022-03-05] MEDS: UMECLIDINIUM/VILANTEROL 62.5/25MCG 7 PUFFS/INHALER INH SCH (07:56)
[2022-03-05] MEDS: GABAPENTIN 100 MG CAP PO SCH ×2 (07:56→20:28)
[2022-03-05] MEDS: LANTUS PER UNIT CHARGE SQ SCH ×2 (08:01→20:27)
[2022-03-05] MEDS: INSULIN ASPART PER UNIT SC SCH ×4 (08:01→20:27)
[2022-03-05] MEDS: POTASSIUM CHLORIDE CRTAB 20 MEQ TABCR PO SCH (08:05)
[2022-03-05] MEDS: SIMVASTATIN 20 MG TAB PO SCH (20:28)
[2022-03-06] MEDS: NITROGLYCERIN 2% OINTMENT 30GM TUBE EXT SCH ×2 (00:30→06:26)
--- NOTE | 2022-03-06 06:51 | Hospitalist Progress Note ---
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 Certainly this strategy does not rule out colonic issues as his last colonoscopy was over 10 years ago however he does not have any bright red blood per rectum although did have a positive Hemoccult Acute on chronic hypoxic respiratory failure, 2/2 heart failure with preserved ejection fraction/severe with history of predominantly restrictive lung disease TTE 10/2021 with severe , patient has refused TAVR in the past. TTE 02/08/2022: EF 55-60%, severe . Valve area 0.6 PFT 03/01/2022: FVC 44%, FEV1 46%, FEV1/FVC 103%. Consistent with moderate restrictive lung disease and air trapping. Insignificant bronchodilator response Chest pain, Cardiology consulted. Continuing aspirin, beta-angela, statin. Cardiac cath 03/03/22 mild to moderate non occlusive CAD cardiology recommends progress to TAVR evaluation, but there is some concerns that the pt maybe having some GI blood loss, this may make anticoagulation a higher risk for surgery but to eval for GI loss will also make anesthesia high risk. may need to have eval at tertiary care center Anemia Iron consistent with iron deficiency anemia. Likely some element of CKD con cern for possible some blood loss. B12 normal, B12/folate replete Iron supplementation Venofer DM A1c this month <7%, well controlled Goal BSG [id number] Hold home Trulicity basal bolus insulin A1c this month 6.3% well-controlled Hx COVID-19 COVID symptoms began 02/03/2022 COVID-positive on admission 02/08/2022 Received dexamethasone in ER, defer additional steroids at this time Severe aortic stenosis Pulmonary hypertension With severe aortic stenosis, CHF Predominantly restrictive lung disease, history of obstructive component Continue Anoro/equivalent conversion DuoNebs as needed Flutter valve, incentive spirometry Remains without signs of COPD exacerbation Hypertension On Lopressor HCTZ/triamterene held due to DEBORA HLD Continue statin Pulmonary nodule Follows with pulmonary, repeat CT scan pending as outpatient chronic kidney disease stage 3 DVT prophylaxis: Heparin with DEBORA Diet: Heart healthy/DM/low-sodium, n.p.o. today pending cath Disposition: PCU CODE STATUS: DNR/DNI, confirmed with patient at bedside (2) Acute respiratory failure with hypoxia: (3) CAD (coronary artery disease): (4) CHF exacerbation: (5) Acute kidney injury superimposed on CKD: (6) Diabetes: (7) Dyslipidemia: (8) Elevated troponin: (9) Gastro-esophageal reflux: (10) High cholesterol: (11) History of lobectomy of lung: (12) Hypertension: (13) Obstructive sleep apnea syndrome: (14) Primary adenocarcinoma of upper lobe of left lung: (15) Pulmonary hypertension: (16) S/P lobectomy of lung: (17) Anemia: Admission and Anticipated Discharge Date Admission Date: March 01, 2022 Results & Data Results & Data ([facility]) Vital Signs (Past 12 Hours) Vital Signs Temp Pulse Pulse Resp BP Pulse Ox O2 Del Method 03/06/22 06:03 69 123/59 L 03/06/22 03:54 97.9 F 65 17 121/54 L 96 Room Air 03/05/22 23:17 63 03/05/22 22:46 98.4 F 60 16 116/55 L 95 Room Air 03/05/22 20:00 Room Air 03/05/22 19:14 98.2 F 68 17 119/49 L 98 Room Air PG Care Time/CCT Total # of Minutes Spent Total Time Spent with Patient: Total time spent is greater than 50% in coordination of care (as documented) at patient's floor/unit and/or counseling patient: Coding Diagnoses Heart failure with preserved ejection fraction I50.30 Acute respiratory failure with hypoxia J96.01 CAD (coronary artery disease) I25.10 CHF exacerbation I50.9 Acute kidney injury superimposed on CKD N17.9; N18.9 Diabetes E11.9 Dyslipidemia E78.5 Elevated troponin R77.8 Gastro-esophageal reflux K21.9 High cholesterol E78.00 History of lobectomy of lung Z90.2 Hypertension I10 Obstructive sleep apnea syndrome G47.33 Primary adenocarcinoma of upper lobe of left lung C34.12 Pulmonary hypertension I27.20 S/P lobectomy of lung Z90.2 Anemia D64.9
[2022-03-06] MEDS: INSULIN ASPART PER UNIT SC SCH (07:56)
[2022-03-06] MEDS: LANTUS PER UNIT CHARGE SQ SCH (08:09)
[2022-03-06] MEDS: UMECLIDINIUM/VILANTEROL 62.5/25MCG 7 PUFFS/INHALER INH SCH (08:09)
[2022-03-06] MEDS: ISOSORBIDE MONO EXTENDED REL 60 MG TABCR PO SCH (08:10)
[2022-03-06] MEDS: FUROSEMIDE 40 MG TAB PO SCH (08:10)
[2022-03-06] MEDS: PANTOprazole 40 MG TAB PO SCH (08:10)
[2022-03-06] MEDS: GABAPENTIN 100 MG CAP PO SCH (08:10)
[2022-03-06] MEDS: METOPROLOL TARTRATE 50 MG TAB PO SCH (08:10)
[2022-03-06] MEDS: guaiFENesin 600 MG TABCR PO SCH (08:10)
[2022-03-06] MEDS: ASPIRIN 81 MG ECTAB PO SCH (08:10)
[2022-03-06 08:13] LABS: Hematocrit (blood only) 32.6 % (40.1-51.0); Hemoglobin 9.9 g/dl (14.0-18.0); Mean Corpuscular Hemoglobin 27.1 pg (25.0-34.0); Mean Corpuscular Hgb Conc 30.4 g/dL (32.0-36.0); Mean Corpuscular Volume 89.3 fL (80.0-100.0); Mean Platelet Volume 10.1 fL (9.4-12.4); Platelet Count 299 K/uL (130-400); RDW Coefficient of Variation 15.2 % (11.5-14.5); Red Blood Count 3.65 M/uL (4.63-6.08); White Blood Count 9.12 K/ul (4.8-10.8)
[2022-03-06 08:35] LABS: BUN Creatinine Ratio 19.8 (10-20); Calcium 8.9 mg/dl (8.5-10.1); Creatinine Clr Calc Pharmacy 42.5 ml/min; Est GFR (African American) 46.1 ml/min; Est GFR (Non-African American) 39.8 ml/min; Potassium 3.6 mmol/L (3.5-5.1)
--- NOTE | 2022-03-06 19:21 | Discharge Summary ---
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 Hx , CAD, COPD, CKD Cr 1.9 40mg of lasix enroute + 40mg of lasix in ER Nitro paste, BP 130/88 ST depressions nonterritorial CXR looks like HF Per patient history Endorses shortness of breath for 2 to 3 days, which suddenly worsened this morning. Endorses that he had salted cheese and crackers with cheese yesterday "Dont wan tto be here every 2-3 months, what the devil might try the TAVR after all." Slight chest pain this morning, none at joshua eof provider assessment When he does get chest pain goes across his chest in a band. Breathing 'way better now than this morning.' Has been sleeping sitting up in a chair, does endorse orthopnea at baseline and worsened recently Urination decreased last 2 days, usually pees a full bottle Minimal cough, nonproductive. Denies fevers, chills, sweats. Reports his noted his lungs sounded coarse Uses inspiratory spirometer at home, has been doign worse with it x2 days uses flutter valve at home, works 'OK; Medical History: Reviewed Medications: Reviewed. Did not take medications this morning Surgical History: Reviewed Allergies: Reviewed. Hives to sulfa Social History: Reviewed Code Status: DNR/DNI, confirmed with patient at bedside Principal Diagnosis Acute on chronic diastolic heart failure secondary to severe aortic stenosis Anemia with iron deficiency anemia Discharge Exam The patient appeared stable Vital signs as documented. Lungs are clear to auscultation and appear unlabored Cardiac exam, systolic murmurs heard Abdominal exam reveals normal bowel sounds, soft non tender, no masses Extremities are nonedematous and both pedal pulses are normal. Neurologic exam is alert and oriented, no focal loss of strength or sensation Skin is without bruises or rashes Psychologically is without concerns for anxiety or depression. Discharge Data Allergies Allergy/AdvReac Type Severity Reaction Status Date / Time sulfamethoxazole Allergy Hives Verified 02/17/22 13:23 [From Bactrim] trimethoprim [From Bactrim] Allergy Hives Verified 02/17/22 13:23 Consultations 03/01/22 11:48 Consult Cardiology Routine Procedures Performed Operation Date: 03/03/22 12:00 Actual Procedures s Cineradiography w/Routine Exam - Joaquín Murray MD p Cath, Coronaries ONLY (no LV) - Joaquín Murray MD Ordered Studies 03/01/22 10:30 CT chest diagnostic wo con Stat 03/03/22 11:07 CL Cath Imgs for PACS use only Stat Hospital Course (1) Heart failure with preserved ejection fraction: Juancho Castle is a 81-year-old male with a past medical history of GERD, COVID, CAD, CHF, CKD, anemia, COPD, hyperlipidemia, 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 TTE 02/08/2022: EF 55-60%, severe . Valve area 0.6 PFT 03/01/2022: FVC 44%, FEV1 46%, FEV1/FVC 103%. Consistent with moderate restrictive lung disease and air trapping. Insignificant bronchodilator response Chest pain, Cardiology consulted. Continuing aspirin, beta-angela, statin. Cardiology to arrange outpatient TAVR may consider GI work-up as has iron deficiency anemia this did improve with PPI we will continue PPI for 6 weeks Cardiac cath 03/03/22 mild to moderate non occlusive CAD cardiology recommends progress to TAVR evaluation, but there is some concerns that the pt maybe having some GI blood loss, this may make anticoagulation a higher risk for surgery but to eval for GI loss will also make anesthesia high risk. may need to have eval at tertiary care center Anemia Iron consistent with iron deficiency anemia. Likely some element of CKD concern for possible some blood loss. On PPI for 6 weeks B12 normal, B12/folate replete Iron supplementation Venofer DM A1c this month <7%, well controlled home Trulicity Continue home diabetic regimen A1c this month 6.3% well-controlled Hx COVID-19 COVID symptoms began 02/03/2022 COVID-positive on admission 02/08/2022 Received dexamethasone in ER, defer additional steroids at this time Pulmonary hypertension With severe aortic stenosis, CHF Predominantly restrictive lung disease, history of obstructive component Continue Anoro/equivalent conversion DuoNebs as needed Flutter valve, incentive spirometry Remains without signs of COPD exacerbation Hypertension On Lopressor Resume Lasix at discharge held Dyazide at time of discharge HLD Continue statin Pulmonary nodule Follows with pulmonary, repeat CT scan pending as outpatient chronic kidney disease stage 3 CODE STATUS: DNR/DNI, confirmed with patient at bedside (2) Acute respiratory failure with hypoxia: (3) CAD (coronary artery disease): (4) CHF exacerbation: (5) Acute kidney injury superimposed on CKD: (6) Diabetes: (7) Dyslipidemia: (8) Elevated troponin: (9) Gastro-esophageal reflux: (10) High cholesterol: (11) History of lobectomy of lung: (12) Hypertension: (13) Obstructive sleep apnea syndrome: (14) Primary adenocarcinoma of upper lobe of left lung: (15) Pulmonary hypertension: (16) S/P lobectomy of lung: (17) Anemia: Total Time Total Time Spent Total Time Spent (In Minutes): It required greater than 30 minutes to prepare this patient for discharge Discharge Plan Discharge Items Patient Disposition: Home - Self-Care Reason For Visit: AHRF,TROP ELEVATION Discharge Diagnosis: acute diastolic heart failure elevted troponin anemia aortic stenosis Activity: Per Instructions section Activity Comment: no intentional exercise Non-emergency contact: Primary Care Provider Call non-emergency contact if: you have any medication questions and your symptoms worsen Follow-up/Referrals: Mili Barnes MD [Primary Care Provider] - 03/10/22 3:20 pm Diet: Low Sodium (2gm) Addtl Attending Provider Instructions: ACTIVITY RECOMMENDATIONS: Excess manipulation of the wrist should be avoided for the next 24-48 hours. * No lifting over 2 pounds (approximately a 1/2 gallon of milk) with the utilized arm for 24 hours. * No strenuous activity such as bowling or tennis for 3 days. * Keep the site of the procedure covered with a bandage for 24 hours. *You may shower the day after the procedure. Do not take a tub bath or submerge the puncture site in water for the next 3 days. *Do not operate any motorized equipment for 3 days. SPECIAL CARE INSTRUCTIONS: The site may be slightly bruised and sore following your procedure. Should any of the following occur, contact the Dr. who performed your procedure. 1. Redness/inflammation, swelling, chills, or fever, or colored drainage at procedure site within 3-7 days after your procedure. 2. Coldness, discoloration, ongoing numbness, severe pain, or swelling. Expect mild tingling of hand and tenderness at the puncture site for up to three days. If this persists beyond three days, or other symptoms develop, notify the Dr. who performed your procedure. BLEEDING: If the procedure site on your wrist begins to bleed, do not panic 1. Place 1 or 2 fingers firmly just slightly above the insertion site to stop the bleeding. You may be able to feel your pulse as you hold pressure. 2. Lift your finger after 5 minutes to see if the bleeding has stopped. 3. Once the bleeding has stopped, gently wipe the wrist area clean with a bandage. * If the bleeding from your wrist does not stop after 10 minutes, or if there is a large amount of bleeding or spurting, call 911 (do not drive yourself to the hospital). SKIN IRRITATION: * You may experience some redness and/or swelling in the area where radiation was administered. If any skin irritation occurs, please contact your family physician. FOLLOW UP VISIT: 1. Follow up with Dr. Garland as scheduled next week on Mar 10, 2022 at 2:30 PM. 2. Keep any scheduled doctor appointments. Addtl [facility] Home Paraprofessional Provider Instructions: Call 911 and go to the Emergency Room if: * You have tightness or pain in your chest that does not go away with rest or Nitroglycerin * You are very short of breath even with rest Call your doctor if any of the following symptoms or problems start or get worse: * Shortness of breath or difficulty breathing * Wake up at night short of breath * Chest pain * Cough * Swelling of your hands, fee, or legs * More fatigued or tired with your normal activity * Palpitations - sudden fast heart beats WEIGHT * Weigh yourself every morning after using the bathroom. * Use the same scale. * Wear the same amount of clothing. * Write your weight down on your chart. * Call your doctor if you gain more than 2-3 pounds in 1-2 days. MEDICATIONS * Use this discharge instruction sheet for instructions. * Take your medications at the time your doctor ordered. * Do not skip a dose of your medicines. * If you miss a dose of medicine, take as soon as possible, but DO NOT DOUBLE A DOSE. * Read your medicine information when you get home. * Know all of the side effects of your medicine. * Call your doctor's office if you have any side effects. * Be sure all of your doctors know what medicine and herbs you take (including cold, flu, and herbal medicine). * Pain Medicine: If you do not get relief from your pain, please call your doctor for help. Take the following with you to your follow-up doctor appointments: * Weight Chart * Medication List * List of questions Do not drink excessive alcohol, beer or wine. Stand-Alone Forms: [employer], Smoking Cessation Medications and DC Order Prescriptions: New pantoprazole 40 mg Tablet,Delayed Release (Dr/Ec) 40 mg PO BID Qty: 60 2RF Continued (DME) Flutter Valve Device See Rx Instructions .MEDSUPPLY Qty: 1 0RF Rx Instructions: Use it every 6 hours when awake. fluticasone propionate [Allergy Relief (fluticasone)] 50 mcg/actuation spray,suspension 1 spray intranasal DAILY Qty: 9.9 3RF Rx Instructions: administer into each nostril once daily Anoro Ellipta 62.5-25 mcg/actuation blister with device 1 inh inhalation DAILY Qty: 60 3RF guaifenesin [Mucinex] 1,200 mg tablet extended release 12hr 1,200 mg PO BID (DME) CPAP Machine Misc See Rx Instructions .ROUTE .MEDSUPPLY Qty: 1 0RF Rx Instructions: AUTO CPAP MIN 6 MAX 16. HEATED HUMIDITY. FULL FACE MASK OF CHOICE. CPAP SUPPLIES. MICHAEL 99. CARE PLUS O2 (DME) Aeroneb Go Nebulizer Misc See Rx Instructions .MEDSUPPLY Qty: 1 0RF Rx Instructions: With tubing and supplies. J44.9. J45.9. (DME) CPAP Supplies Misc See Rx Instructions .MEDSUPPLY Qty: 1 0RF Rx Instructions: Mask refitting. G47.33 Trulicity 0.75 mg/0.5 mL pen injector 0.75 mg subcut .weekly Rx Instructions: TAKE THIS MED EVERY WEDNESDAY ipratropium-albuterol 0.5 mg-3 mg(2.5 mg base)/3 mL solution for nebulization 3 ml inhalation Q8H PRN (Reason: shortness of breath or wheezing) Qty: 270 3RF potassium chloride 10 mEq capsule, extended release 20 meq PO .COMPLEX Rx Instructions: 20 mEq PO Every other day; multivitamin Tablet 1 tab PO QAM aspirin 81 mg Tablet,Delayed Release (Dr/Ec) 81 mg PO BID simvastatin 20 mg Tablet 20 mg PO HS metoprolol tartrate 50 mg Tablet 50 mg PO BID Humalog Mix 75-25(U-100)Insuln 100 unit/mL (75-25) suspension 95 unit SUBCUT QAM Humalog Mix 75-25(U-100)Insuln 100 unit/mL (75-25) suspension 60 unit SUBCUT QPM isosorbide mononitrate 60 mg tablet extended release 24 hr 60 mg PO DAILY gabapentin 100 mg Capsule 100 mg PO BID Qty: 30 0RF Changed furosemide 40 mg tablet 40 mg PO DAILY Qty: 30 0RF ferrous sulfate 324 mg (65 mg iron) tablet,delayed release (DR/EC) 324 mg PO Q OTHER DAY Qty: 30 0RF Discontinued triamterene-hydrochlorothiazid 37.5-25 mg Tablet 1 tab PO QAM coenzyme Q10 [CoQ-10] 100 mg Capsule 200 mg PO QAM omeprazole magnesium [Prilosec OTC] 20 mg Tablet,Delayed Release (Dr/Ec) 20 mg PO QAM astragalus root 470 mg Capsule 470 mg PO DAILY Discharge Orders: Discharge Order (Routine); Ordered 03/06/22 Ordered By: Arjun Sewell/Other Patient Handouts: High Blood Sugar (Hyperglycemia), Hypoglycemia (Low Blood Sugar), Managing Type 2 Diabetes Admission Data Admit Date/Time: 03/01/22 10:28 Attending Provider: Arjun Lara Admit Provider: Robby Linares Primary Care Provider: Mili Barnes Other Providers: Juan Manuel Santoro Other Interventions: Discharge Summary Assessment (RN) Last Done: 03/06/22 10:39 Coding Level of Care Code D/C DAY MANAGEMENT >30 MINS Diagnoses Heart failure with preserved ejection fraction I50.30 Acute respiratory failure with hypoxia J96.01 CAD (coronary artery disease) I25.10 CHF exacerbation I50.9 Acute kidney injury superimposed on CKD N17.9; N18.9 Diabetes E11.9 Dyslipidemia E78.5 Elevated troponin R77.8 Gastro-esophageal reflux K21.9 High cholesterol E78.00 History of lobectomy of lung Z90.2 Hypertension I10 Obstructive sleep apnea syndrome G47.33 Primary adenocarcinoma of upper lobe of left lung C34.12 Pulmonary hypertension I27.20 S/P lobectomy of lung Z90.2 Anemia D64.9
--- NOTE | 2022-03-13 13:01 | Coding Query ---
CODING QUERY To promote full compliance with coding requirements relating to patient care, provider participation is requested in all cases of yeast maker uncertainty. Please assist us with the question(s) below: Coding Question(s): The Cardiology Consultation documents NSTEMI, and the Cardiac Cath report has Pre-Procedural diagnosis Non STEMI, and the Cardiology Progress Notes, as on 03/04 document, " NSTEMI: No severe CAD to suggest acute coronary syndrome. Elevated troponins likely demand ischemia in the setting of severe aortic stenosis and CHF". Please specify below, in your clinical opinion, regarding the NSTEMI. ( ) NSTEMI is Ruled Out and the elevated troponin is likely due to demand ischemia (x ) NSTEMI is still possible and and was likely caused by demand ischemia ( ) Other: Please Specify Physician's Response(s): Thank you Preethi Bhardwaj Principal Diagnosis: "that condition established after study, to be chiefly responsible for occasioning the admission of the patient to the hospital for care." Co-Existing Principal Diagnosis: "when two or more diagnoses equally meet the criteria for principal diagnosis as determined by the circumstances of admission, diagnostic work up, and/or therapy provided, and the Alphabetic Index, Tabular List, or another coding guideline does not provide sequencing direction, any one of the diagnoses may be sequenced first." "When the physician has documented what appears to be a current diagnosis in the body of the record, but has not included the diagnosis in the final diagnostic statement, the physician should be asked whether the diagnosis should be added." (Source Coding Clinic 2 QTR90. p3-4) DANG
--- NOTE | 2022-03-13 13:08 | Coding Query ---
CODING QUERY To promote full compliance with coding requirements relating to patient care, provider participation is requested in all cases of retention specialist uncertainty. Please assist us with the question(s) below: Coding Question(s): The ER documents COVID-19, and COVID Positive, and the H&P documents history of COVID-19, and, "Hx COVID-19 COVID symptoms began 02/03/2022 COVID-positive on admission 02/08/2022 Received Decadron x10-day course with 12 mg IV and remdesivir on past admit Patient clinically improved from COVID, current symptoms appear more consistent with CHF onset by potential high salt load and AAS Received dexamethasone in ER, no wheezing on exam Will defer additional steroids at this time and follow. If underlying post- covid inflammation suspected + course of dex 6mg BID", and the Discharge Summary documents, " Hx COVID-19 COVID symptoms began 02/03/2022 COVID-positive on admission 02/08/2022 Received dexamethasone in ER, defer additional steroids at this time". Please specify below, in your clinical opinion, regarding COVID-19. ( ) new COVID-19 infection, with history of COVID-19 infection ( xx ) Ongoing COVID-19 Infection ( ) Post-Covid inflammation with No new COVID-19 infection ( ) History only of COVID-19 infection and No new COVID-19 Infection ( ) Other: Please Specify Physician's Response(s): Thank you Preethi Bhardwaj Principal Diagnosis: "that condition established after study, to be chiefly responsible for occasioning the admission of the patient to the hospital for care." Co-Existing Principal Diagnosis: "when two or more diagnoses equally meet the criteria for principal diagnosis as determined by the circumstances of admission, diagnostic work up, and/or therapy provided, and the Alphabetic Index, Tabular List, or another coding guideline does not provide sequencing direction, any one of the diagnoses may be sequenced first." "When the physician has documented what appears to be a current diagnosis in the body of the record, but has not included the diagnosis in the final diagnostic statement, the physician should be asked whether the diagnosis should be added." (Source Coding Clinic 2 QTR90. p3-4) MTDD
== END 2022-03-06 11:52 | disposition home or self-care (01) | DRG 280 ==
LOC: ED 09:12 → SUATTDRO 10:28 → EDINP 11:41 → 2S 15:10 → 2E 03-02 13:41
PROC: CLB.CCO (2022-03-03 12:00)

== ENCOUNTER 2022-03-17 11:16 | Inpatient (IN) ==
--- NOTE | 2022-03-17 11:41 | Emergency Department Note ---
History of Present Illness General Chief complaint: Shortness of Breath/Dyspnea Stated complaint: SOB; chest pressure Time Seen by Provider: 03/17/22 11:19 Source: patient and EMS Mode of arrival: EMS Limitations: physical limitation History of Present Illness Provider complaint: Shortness of breath This is a 81-year-old male presents emergency department via EMS due to shortness of breath and hypoxia. Patient states he has had recent heart problems and was recently admitted with the same. Patient speaks in short phrases and will nod and shake his head in order to obtain HPI as he still had increased work of breathing on arrival. EMS reported that on their arrival to his residence patient with marked tachypnea in the 50s and was hypoxic in the 50s also. He was immediately placed on CPAP with improvement. Patient stated when he went to walk his dog he developed chest pressure and increased shortness of breath which worsened quickly despite sitting and resting. He contacted 911. He states he does have a history of heart failure as well as a bad heart valve. Patient denies fevers or chills. Denies sick contact. Denies any increased leg swelling. Patient transition to BiPAP here with RT at bedside on arrival. Pt seen during a time of high acuity and national emergency pandemic while weari ng PPE. Home Medications Medication Instructions Recorded Confirmed Type aspirin 81 mg tablet,delayed 81 mg PO BID 04/25/18 03/10/22 History release multivitamin 1 tab PO QAM 04/25/18 03/10/22 History guaifenesin 1,200 mg tablet, 1,200 mg PO BID 04/27/19 03/10/22 History extended release 12 hr (Mucinex) CPAP Machine #1 ea 07/17/19 03/10/22 Rx CPAP Supplies #1 ea 05/23/20 03/10/22 Rx nebulizers (Aeroneb Go Nebulizer) #1 ea 05/23/20 03/10/22 Rx Flutter Valve #1 ea 05/24/20 03/10/22 Rx dulaglutide 0.75 mg/0.5 mL 0.75 mg subcut .weekly 11/08/20 03/10/22 History subcutaneous pen injector (Trulicity) ipratropium 0.5 mg-albuterol 3 mg 3 ml inhalation Q8H PRN shortness 11/25/20 03/10/22 Rx (2.5 mg base)/3 mL nebulization of breath or wheezing #270 mL soln fluticasone propionate 50 1 spray intranasal DAILY #9.9 grams 03/24/21 03/10/22 Rx mcg/actuation nasal spray,suspension (Allergy Relief (fluticasone)) isosorbide mononitrate 60 mg 60 mg PO DAILY 11/08/21 03/10/22 History tablet,extended release 24 hr umeclidinium 62.5 mcg-vilanterol 1 inh inhalation DAILY #60 ea 11/13/21 03/10/22 Rx 25 mcg/actuation powdr for inhalation (Anoro Ellipta) potassium chloride 10 mEq 20 meq PO .COMPLEX 01/14/22 03/10/22 History capsule,extended release ferrous sulfate 324 mg (65 mg 324 mg PO Q OTHER DAY #30 tabs 03/06/22 03/10/22 Rx iron) tablet,delayed release furosemide 40 mg tablet 40 mg PO DAILY #30 tabs 03/06/22 03/10/22 Rx pantoprazole 40 mg tablet,delayed 40 mg PO BID #60 tabs 03/06/22 03/10/22 Rx release empagliflozin 10 mg tablet 10 mg PO DAILY #90 tabs 03/10/22 03/10/22 Rx gabapentin 300 mg capsule 300 mg PO BID #180 caps 03/10/22 03/10/22 Rx insulin lispro protamine-lispro 50 unit subcut QPM 03/10/22 03/10/22 History 100 unit/mL (75-25) subcutaneous susp (Humalog Mix 75-25(U-100)Insuln) insulin lispro protamine-lispro 75 unit subcut QAM 03/10/22 03/10/22 History 100 unit/mL (75-25) subcutaneous susp (Humalog Mix 75-25(U-100)Insuln) metoprolol succinate 100 mg 100 mg PO DAILY #90 tabs 03/10/22 03/10/22 Rx tablet,extended release 24 hr rosuvastatin 40 mg tablet 40 mg PO DAILY #90 tabs 03/10/22 03/10/22 Rx Allergies Allergy/AdvReac Type Severity Reaction Status Date / Time sulfamethoxazole Allergy Hives Verified 03/10/22 15:29 [From Bactrim] trimethoprim [From Bactrim] Allergy Hives Verified 03/10/22 15:29 Past Med/Surg History Medical History (Updated 03/19/22 @ 15:47 by Chloe Mario, ) Anemia CAD (coronary artery disease) NON-OBSTRUCTIVE Cholelithiasis CKD (chronic kidney disease) baseline creatinine 1.6 Diabetes Diabetes mellitus, type 2 IDDM, +B/L FEET NEUROPATHY Dyspnea on exertion Gastro-esophageal reflux GERD (gastroesophageal reflux disease) Hearing deficit wears hearing aids Heart failure with preserved ejection fraction Hiatal hernia High cholesterol Hyperlipidemia Hypertension Hypertension Impacted cerumen of left ear Lip ulcer Lung cancer Discharge summary dated 04/06/[address] Mari: HOSPITAL COURSE: This is a very nice 77-year-old male who was found to have a mass. It certainly appeared to be a carcinoma in the left upper lobe. We worked him up and felt he would be a candidate for a resection. Upon opening the lung, getting into the patient's chest with our robotic thoracoscopic resection on 03/30/2018, I was quite pleased. We took down the fissure quite nicely, took down all of the arterial branches but one and had the vein isolated as well as the bronchus and the patient had a tear of this remaining artery. We controlled this, we had to open the chest. We eventually got control and I repaired this primarily. The patient was extubated later that day. We had a significant blood loss. The patient was transfused. He also had a creatinine of 1.71 preop. This went as high as 3 in the subsequent days, but then came back down. He looked very good the day after surgery. He was requiring no oxygen and was eating a regular diet. We had some drainage from the chest tubes. We kept it in for a few days. There was no evidence of bleeding. Frankly I was quite pleased with him. He was ambulating in the hallway. He was moving his bowels, although he required some cathartics. Hemoglobin settled down in the low 8. We left it there after used 4 units total of blood. Creatinine came back down. He was making excellent urine. Creatinine was 2.51 the day before discharge. His incisions were all clean. We removed his chest tube after he had a small pneumothorax, a small amount of fluid and on 04/05/2018, I performed an aspiration of this and his pneumothorax had resolved. I was quite happy with this. The following day, I did not really see much of pneumothorax. He had a bit more fluid, but he was on room air, ambulating and I think it is best for him to go home. 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 I told her to call me directly should there be any issues. Quite frankly, I was quite pleased with him. His incisions were clean. He had very little in the way of pain. We did send him home on tramadol and told to resume his regular medications. I will see him back in the office next week. 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 Robotic L VATS converted to open procedure. Glidescope assisted PERFECTO insertion. During surgery there was significant bleeding from the pulmonary artery which forced a change to an open thoracotomy and was difficult to control. Fluids were given followed by blood and between the blood loss and manipulation in the chest there were some brief times when the eros was showing very little pulse. His CO2 tracing dropped but never went to nothing. Along with the fluids he did receive 0.5mg epi and 2 units of vasopressin in addition to occasional small doses of ephedrine and phenylephrine. Blood loss was controlled and his vitals stabilized for the rest of the case. At the end of the procedure, we changed to a single lumen ETT and Dr Mari did a bronchoscopy which showed a little blood in the bronchi but basically clear. He is making urine, his vitals are stable, we are leaving him on the ventilator for the mean time to allow him to wake and make sure he is not acidotic. Labs and chest film are being done now - report to ICU MD. Surgical History History of cardiac cath [id number] NO STENTS [facility] 2021 no stents [facility] History of cholecystectomy 11/22/2014. DL x2. Glidescope #3 by ELIANA and 7.5 ETT inserted. Grade 3 view. 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 All systems reviewed & are unremarkable except as noted in HPI & below Physical Exam Vital Signs Vital Signs - 24 hr 03/17/22 11:32 03/17/22 11:25 03/17/22 11:25 Temperature 36.3 C L Temperature Source Axillary Pulse Rate 105 H Pulse Rate from SpO2 Sensor Pulse Rhythm Regular Pulse Strength Normal Respiratory Rate 36 H 23 Respiratory Effort / Characteristics Labored Non-Labored Spontaneous Non-Labored Spontaneous Respiratory Depth Normal Normal Normal Respiratory Pattern Regular Regular Regular Blood Pressure 135/88 Blood Pressure Mean 103 Blood Pressure Position Lying Pulse Oximetry 96 99 Oxygen Delivery Method BiPAP CPAP Fraction of Inspired Oxygen 40 Sepsis Recent Fever Within 48 Hours No Sepsis New/Unexplained Change in Mental Status N/A Sepsis Action Taken by Nursing No Action Required 03/17/22 11:25 03/17/22 11:45 03/17/22 12:00 Temperature Temperature Source Pulse Rate 101 H 101 H Pulse Rate from SpO2 Sensor 101 H Pulse Rhythm Pulse Strength Respiratory Rate 24 24 Respiratory Effort / Characteristics Respiratory Depth Respiratory Pattern Blood Pressure 131/61 Blood Pressure Mean 84 Blood Pressure Position Pulse Oximetry 99 98 99 Oxygen Delivery Method CPAP Fraction of Inspired Oxygen Sepsis Recent Fever Within 48 Hours Sepsis New/Unexplained Change in Mental Status Sepsis Action Taken by Nursing 03/17/22 12:15 03/17/22 12:15 03/17/22 12:30 Temperature Temperature Source Pulse Rate 94 H Pulse Rate from SpO2 Sensor 95 H Pulse Rhythm Pulse Strength Respiratory Rate 19 Respiratory Effort / Characteristics Respiratory Depth Respiratory Pattern Blood Pressure 116/59 L 118/58 L Blood Pressure Mean 78 78 Blood Pressure Position Pulse Oximetry 97 Oxygen Delivery Method Fraction of Inspired Oxygen Sepsis Recent Fever Within 48 Hours Sepsis New/Unexplained Change in Mental Status Sepsis Action Taken by Nursing 03/17/22 12:30 03/17/22 12:45 03/17/22 13:00 Temperature Temperature Source Pulse Rate 89 92 H 84 Pulse Rate from SpO2 Sensor 89 Pulse Rhythm Pulse Strength Respiratory Rate 19 15 19 Respiratory Effort / Characteristics Respiratory Depth Respiratory Pattern Blood Pressure 127/71 117/60 Blood Pressure Mean 89 79 Blood Pressure Position Pulse Oximetry 99 100 99 Oxygen Delivery Method Fraction of Inspired Oxygen Sepsis Recent Fever Within 48 Hours Sepsis New/Unexplained Change in Mental Status Sepsis Action Taken by Nursing GENERAL: alert, unwell appearing, well nourished, moderate distress, non-toxic, CPAP in place EYE EXAM: normal conjunctiva, PERRL and EOM's grossly intact OROPHARYNX: no exudate, no erythema, lips, buccal mucosa, and tongue normal and mucous membranes are moist NECK: supple, no nuchal rigidity, no adenopathy, non-tender LUNGS: Rales bilaterally to auscultation. Normal chest wall mechanics, no w/r, tachypnea, increased work of breathing HEART: no murmurs, S1 normal and S2 normal ABDOMEN: abdomen soft, non-tender, normo-active bowel sounds, no masses, no rebound or guarding. BACK: Back is symmetrical on inspection and there is no deformity, no midline tenderness, no CVA tenderness. SKIN: no rashes and no bruising UPPER EXTREMITIES: upper extremities are grossly normal. FROM, nml pulses b/l. LOWER EXTREMITIES: No pitting edema. FROM, nml pulses b/l. NEURO EXAM: Normal sensorium, cranial nerves II-XII grossly intact, normal speech, no gross weakness of arms, no gross weakness of legs. Gross sensation intact. Course Course 1141: Discussed with Dr. Santoro. 1145: Pt VS stable. Continue to appear improved on BiPAP. 1211: Increased work of breathing. Patient maintaining oxygenation on BiPAP at 40% FiO2. Patient continues to report feeling improved Administered Medications Aspirin (Aspirin 81 Mg Ectab) 81 mg PO BID SHANTANU Stop: 04/16/22 20:59 Last Admin: 03/19/22 08:21 Dose: 81 mg Documented By: Admin: 03/18/22 21:33 Dose: 81 mg Documented By: Admin: 03/18/22 08:44 Dose: 81 mg Documented By: Admin: 03/17/22 21:08 Dose: 81 mg Documented By: AZALIA Ferrous Sulfate (Ferrous Sulfate 325 Mg Tab) 325 mg PO Q2D@1000 SHANTANU Stop: 04/16/22 15:00 Last Admin: 03/19/22 08:22 Dose: 325 mg Documented By: Admin: 03/17/22 15:56 Dose: 325 mg Documented By: ANGELIQUE Fluticasone Propionate (Fluticasone Propionate Na Spr 16 Gm Btl) 1 sprays NA DAILY SHANTANU Stop: 04/17/22 08:59 Last Admin: 03/19/22 08:23 Dose: 1 sprays Documented By: Admin: 03/18/22 08:43 Dose: 1 sprays Documented By: ANGELIQUE Furosemide (Furosemide 40 Mg/4 Ml Vial) 60 mg IV BID SHANTANU Stop: 04/17/22 08:59 Last Admin: 03/19/22 08:21 Dose: 60 mg Documented By: Admin: 03/18/22 21:34 Dose: 60 mg Documented By: Admin: 03/18/22 08:39 Dose: 60 mg Documented By: ANGELIQUE Gabapentin (Gabapentin 300 Mg Cap) 300 mg PO BID [facility] Stop: 04/16/22 20:59 Last Admin: 03/19/22 08:21 Dose: 300 mg Documented By: Admin: 03/18/22 21:33 Dose: 300 mg Documented By: Admin: 03/18/22 08:44 Dose: 300 mg Documented By: Admin: 03/17/22 21:07 Dose: 300 mg Documented By: AZALIA Heparin Sodium (Porcine) (Heparin Sod 5,000 Unit/0.5 Ml Vial) 7,500 units SQ Q12 SHANTANU Stop: 04/17/22 08:59 Last Admin: 03/19/22 08:23 Dose: 7,500 units Documented By: Admin: 03/18/22 21:33 Dose: 7,500 units Documented By: OLINDA Insulin Aspart (Insulin Aspart Per Unit) 0 units SC ACHS SHANTANU Stop: 04/16/22 17:59 Last Admin: 03/19/22 12:18 Dose: 3 units Documented By: JOSE Co-signed By: [id number] Admin: 03/19/22 08:19 Dose: 6 units Documented By: JOSE Co-signed By: CARLO Admin: 03/18/22 21:34 Dose: 1 units Documented By: OLINDA Co-signed By: CHRISTIAN Admin: 03/18/22 17:24 Dose: 5 units Documented By: ANGELIQUE Co-signed By: AJIT Admin: 03/18/22 12:05 Dose: 3 units Documented By: ANGELIQUE Co-signed By: AJIT Admin: 03/18/22 08:30 Dose: 4 units Documented By: ANGELIQUE Co-signed By: ALBERTO Admin: 03/17/22 20:53 Dose: 3 units Documented By: AZALIA Co-signed By: ANICETO Insulin Glargine (Lantus Per Unit Charge) 10 units SQ BID SHANTANU Stop: 04/16/22 20:59 Last Admin: 03/19/22 09:17 Dose: 10 units Documented By: JOSE Co-signed By: [id number] Admin: 03/18/22 21:35 Dose: 10 units Documented By: OLINDA Co-signed By: [facility] Admin: 03/18/22 08:30 Dose: 10 units Documented By: ANGELIQUE Co-signed By: ALBERTO Admin: 03/17/22 20:54 Dose: 10 units Documented By: AZALIA Co-signed By: ANICETO Isosorbide Mononitrate (Isosorbide [place] Extended Rel 60 Mg Tabcr) 60 mg PO DAILY SHANTANU Stop: 04/17/22 08:59 Last Admin: 03/19/22 09:13 Dose: 60 mg Documented By: Admin: 03/18/22 08:44 Dose: 60 mg Documented By: CG Metoprolol Succinate (Metoprolol Succ 50mg Ext Rel Tab) 100 mg PO DAILY SHANTANU Stop: 04/17/22 08:59 Last Admin: 03/19/22 08:21 Dose: 100 mg Documented By: Admin: 03/18/22 08:44 Dose: 100 mg Documented By: CG Pantoprazole Sodium (Pantoprazole 40 Mg Tab) 40 mg PO BID SHANTANU Stop: 04/16/22 20:59 Last Admin: 03/19/22 08:21 Dose: 40 mg Documented By: Admin: 03/18/22 21:32 Dose: 40 mg Documented By: Admin: 03/18/22 08:44 Dose: 40 mg Documented By: Admin: 03/17/22 21:07 Dose: 40 mg Documented By: CJC Rosuvastatin Calcium (Rosuvastatin Calcium 20 Mg Tab) 40 mg PO DAILY SHANTANU Stop: 04/17/22 08:59 Last Admin: 03/19/22 08:21 Dose: 40 mg Documented By: Admin: 03/18/22 08:45 Dose: 40 mg Documented By: CG Umeclidinium/Vilanterol (Umeclidinium/Vilanterol 62.5/25mcg 7 Puffs/Inhaler) 1 puffs INH DAILY SHANTANU Stop: 04/16/22 14:57 Last Admin: 03/19/22 08:22 Dose: 1 puffs Documented By: Admin: 03/18/22 08:45 Dose: 1 puffs Documented By: Admin: 03/17/22 15:56 Dose: 1 puffs Documented By: CG Discontinued Medications Furosemide (Furosemide 40 Mg/4 Ml Vial) 40 mg IV ONE ONE Stop: 03/17/22 11:46 Last Admin: 03/17/22 11:48 Dose: 40 mg Documented By: OAM Furosemide (Furosemide Inj 20 Mg/2 Ml Vial) 20 mg IV ONE ONE Stop: 03/17/22 13:49 Last Admin: 03/17/22 15:34 Dose: 20 mg Documented By: CG Heparin Sodium (Porcine) (Heparin Sod 5,000 Unit/0.5 Ml Vial) 7,500 units SQ Q8 SHANTANU Stop: 04/16/22 14:57 Last Admin: 03/18/22 06:07 Dose: 7,500 units Documented By: [facility] Admin: 03/17/22 21:10 Dose: 7,500 units Documented By: [facility] Admin: 03/17/22 15:58 Dose: 7,500 units Documented By: CG Insulin Aspart (Insulin Aspart Per Unit) 0 units SC ACHS SHANTANU Stop: 04/16/22 16:29 Last Admin: 03/17/22 17:07 Dose: Not Given Documented By: CG Insulin Aspart (Insulin Aspart Per Unit) 0 units SC Q6 SHANTANU Stop: 04/16/22 17:59 Last Admin: 03/17/22 17:39 Dose: 2 units Documented By: CG Co-signed By: GPF Critical Care Time Critical Care Time: Yes Total Critical Care Time: 49 Critical care of 49 min performed to assess and manage high likelihood of life- threatening acute hypoxic respiratory failure, involving labs and imaging performed with assessment to evaluate acute hypoxic respiratory failure diagnosis with frequent reassessment. This time includes bedside time, treatment discussions with patient/family/consultants, documentation time and excludes procedure time. Medical Decision Making Differential Diagnosis Differential diagnoses includes but is not limited to pneumonia, bronchitis, COPD/Asthma exacerbation, pneumothorax, pulmonary embolism, congestive heart failure, acute coronary syndrome Medical Records Attestation: I reviewed the patient's medical records. Home Medications Current Medication List: was personally reviewed by me Laboratory Data Result diagrams: 03/19/22 06:58 03/19/22 06:58 Lab Results 03/17/22 03/17/22 03/17/22 Range/Units 11:31 11:31 11:31 WBC 16.95 H (4.8-10.8) K/ul RBC 3.85 L (4.63-6.08) M/uL Hgb 10.2 L (14.0-18.0) g/dl Hct 35.1 L (40.1-51.0) % MCV 91.2 (80.0-100.0) fL MCH 26.5 (25.0-34.0) pg MCHC 29.1 L (32.0-36.0) g/dL RDW Std Deviation 52.9 H (36.4-46.3) fL RDW Coeff of Mac 15.9 H (11.5-14.5) % Plt Count 355 (130-400) K/uL MPV 9.9 (9.4-12.4) fL Immature Gran % (Auto) 0.8 % Neut % (Auto) 88.0 % Lymph % (Auto) 5.2 % [place] % (Auto) 5.2 % Eos % (Auto) 0.4 % Baso % (Auto) 0.4 % Neut # (Auto) 14.92 H (1.4-6.5) K/uL Lymph # (Auto) 0.88 L (1.2-3.4) K/uL [place] # (Auto) 0.88 H (0.24-0.82) K/uL Eos # (Auto) 0.07 (0-0.50) K/uL Baso # (Auto) 0.07 (0-0.2) K/uL Immature Gran # (Auto) 0.13 H (0.00-0.02) K/uL PT (9.0-12.0) Seconds INR (0.9-1.1) Sodium 138 (136-145) mmol/L Potassium 4.5 (3.5-5.1) mmol/L Chloride 99 (98-107) mmol/L Carbon Dioxide 29 (21-32) mmol/L Anion Gap 10 (3-11) BUN 26 H (6-23) mg/dl Creatinine 1.91 H (0.6-1.4) mg/dl Est Cr Clr Drug Dosing 35.8 ml/min Est GFR ( Amer) 37.8 ml/min Est GFR (Non-Af Amer) 32.6 ml/min BUN/Creatinine Ratio 13.6 (10-20) Glucose 267 H (70-99(Fasting)) mg/dl Calcium 9.0 (8.5-10.1) mg/dl Magnesium 2.3 (1.7-2.4) mg/dl Total Bilirubin 0.8 (0.2-1.0) mg/dl AST 23 (13-39) U/L ALT 17 (7-52) U/L Alkaline Phosphatase 72 (34-104) U/L Troponin I High Sens 75.0 H* D (0-20) pg/ml B-Natriuretic Peptide 1020 H (0-100) pg/ml Total Protein 7.2 (6.0-8.3) gm/dl Albumin 4.2 (3.4-5.0) gm/dl Globulin 3.0 (2.5-4.0) gm/dl Albumin/Globulin Ratio 1.4 (0.9-2) Lipase 32 (11-82) U/L Procalcitonin (0-0.5) ng/ml TSH (0.300-4.500) uIu/ml SARS-CoV-2, RNA, NAAT (NEGATIVE) 03/17/22 03/17/22 03/17/22 Range/Units 11:31 11:31 11:31 WBC (4.8-10.8) K/ul RBC (4.63-6.08) M/uL Hgb (14.0-18.0) g/dl Hct (40.1-51.0) % MCV (80.0-100.0) fL MCH (25.0-34.0) pg MCHC (32.0-36.0) g/dL RDW Std Deviation (36.4-46.3) fL RDW Coeff of Mac (11.5-14.5) % Plt Count (130-400) K/uL MPV (9.4-12.4) fL Immature Gran % (Auto) % Neut % (Auto) % Lymph % (Auto) % [place] % (Auto) % Eos % (Auto) % Baso % (Auto) % Neut # (Auto) (1.4-6.5) K/uL Lymph # (Auto) (1.2-3.4) K/uL [place] # (Auto) (0.24-0.82) K/uL Eos # (Auto) (0-0.50) K/uL Baso # (Auto) (0-0.2) K/uL Immature Gran # (Auto) (0.00-0.02) K/uL PT 10.6 (9.0-12.0) Seconds INR 1.0 (0.9-1.1) Sodium (136-145) mmol/L Potassium (3.5-5.1) mmol/L Chloride (98-107) mmol/L Carbon Dioxide (21-32) mmol/L Anion Gap (3-11) BUN (6-23) mg/dl Creatinine (0.6-1.4) mg/dl Est Cr Clr Drug Dosing ml/min Est GFR ( Amer) ml/min Est GFR (Non-Af Amer) ml/min BUN/Creatinine Ratio (10-20) Glucose (70-99(Fasting)) mg/dl Calcium (8.5-10.1) mg/dl Magnesium (1.7-2.4) mg/dl Total Bilirubin (0.2-1.0) mg/dl AST (13-39) U/L ALT (7-52) U/L Alkaline Phosphatase (34-104) U/L Troponin I High Sens (0-20) pg/ml B-Natriuretic Peptide (0-100) pg/ml Total Protein (6.0-8.3) gm/dl Albumin (3.4-5.0) gm/dl Globulin (2.5-4.0) gm/dl Albumin/Globulin Ratio (0.9-2) Lipase (11-82) U/L Procalcitonin < 0.05 (0-0.5) ng/ml TSH 1.396 (0.300-4.500) uIu/ml SARS-CoV-2, RNA, NAAT (NEGATIVE) 03/17/22 Range/Units 12:45 WBC (4.8-10.8) K/ul RBC (4.63-6.08) M/uL Hgb (14.0-18.0) g/dl Hct (40.1-51.0) % MCV (80.0-100.0) fL MCH (25.0-34.0) pg MCHC (32.0-36.0) g/dL RDW Std Deviation (36.4-46.3) fL RDW Coeff of Mac (11.5-14.5) % Plt Count (130-400) K/uL MPV (9.4-12.4) fL Immature Gran % (Auto) % Neut % (Auto) % Lymph % (Auto) % [place] % (Auto) % Eos % (Auto) % Baso % (Auto) % Neut # (Auto) (1.4-6.5) K/uL Lymph # (Auto) (1.2-3.4) K/uL [place] # (Auto) (0.24-0.82) K/uL Eos # (Auto) (0-0.50) K/uL Baso # (Auto) (0-0.2) K/uL Immature Gran # (Auto) (0.00-0.02) K/uL PT (9.0-12.0) Seconds INR (0.9-1.1) Sodium (136-145) mmol/L Potassium (3.5-5.1) mmol/L Chloride (98-107) mmol/L Carbon Dioxide (21-32) mmol/L Anion Gap (3-11) BUN (6-23) mg/dl Creatinine (0.6-1.4) mg/dl Est Cr Clr Drug Dosing ml/min Est GFR ( Amer) ml/min Est GFR (Non-Af Amer) ml/min BUN/Creatinine Ratio (10-20) Glucose (70-99(Fasting)) mg/dl Calcium (8.5-10.1) mg/dl Magnesium (1.7-2.4) mg/dl Total Bilirubin (0.2-1.0) mg/dl AST (13-39) U/L ALT (7-52) U/L Alkaline Phosphatase (34-104) U/L Troponin I High Sens (0-20) pg/ml B-Natriuretic Peptide (0-100) pg/ml Total Protein (6.0-8.3) gm/dl Albumin (3.4-5.0) gm/dl Globulin (2.5-4.0) gm/dl Albumin/Globulin Ratio (0.9-2) Lipase (11-82) U/L Procalcitonin (0-0.5) ng/ml TSH (0.300-4.500) uIu/ml SARS-CoV-2, RNA, NAAT POSITIVE A* (NEGATIVE) Imaging Data Radiologist's Impression: Chest X-Ray 03/17/22 11:30 SINGLE VIEW CHEST CLINICAL HISTORY: Dyspnea. FINDINGS: An AP, portable, upright chest radiograph is compared to study chest x-ray and chest CT dated 03/01/2022. The heart is enlarged noting atherosclerotic calcification of the thoracic aorta. There is pulmonary vascular congestion with evidence of interstitial edema. There are small pleural effusions with dependent consolidation. No pneumothorax is seen. The skeletal structures are osteopenic. There are numerous healed left-sided rib fractures. IMPRESSION: 1. Cardiomegaly with evidence of congestive failure and pulmonary edema. This has modestly worsened as compared 03/01/2022. 2. Small pleural effusions with dependent consolidation. ACT 112: Negative or not required by law. Electronically signed by: Uzair Wilson M.D. 03/17/2022 11:49 AM ECG Data Attestation: I personally reviewed and interpreted this ECG as follows: Indication: + SOB/dyspnea Rate (beats per minute): 113 Rhythm: + sinus tachycardia ECG Intervals/blocks: + Normal QRS and + Normal QT ECG Richardson: + Normal ECG ST segments: + ST depression and + T-wave inversions MDM Narrative An order was placed for continuous cardiac monitoring. The monitor shows a rate of _110_ with _sinus tachycardia_ rhythm. This is a 81-year-old male presents emergency department with acute hypoxic respiratory failure. He was placed on CPAP urgently by EMS and continued on BiPAP here. Patient did have improvement in his symptoms. He did have rales bilaterally and given significant cardiac history including severe , I suspect went into acute pulmonary edema leading to his distress. Patient was started on Lasix here. Patient continued remained stable and improved in the emergency room while on BiPAP. Chest x-ray consistent with clinical picture. Case was urgently discussed with Dr. Santoro of cardiology due to known severe aortic stenosis and recurrent episode of acute pulmonary edema requiring hospitalization. Labs drawn and sent, and Lasix added. Case discussed with hospitalist for additional evaluation and management. Impression & Plan Acute respiratory failure with hypoxia, Pulmonary edema, Aortic stenosis, Anemia, Elevated troponin, Pleural effusion Discharge Plan Visit Data Chief Complaint: Shortness of Breath/Dyspnea Stated Complaint: SOB; chest pressure ED Provider: Chloe Mario Discharge Problem: Acute respiratory failure with hypoxia, Pulmonary edema, Aortic stenosis, Anemi a, Elevated troponin, Pleural effusion Patient Disposition: Admitted As Inpatient Discharge Instructions Interventions: ED Discharge Assessment Last Done: 03/17/22 14:33
[2022-03-17] MEDS ORDERED: FUROSEMIDE 40 MG/4 ML VIAL IV ONE (11:45)
[2022-03-17 11:47] LABS: Basophils # (auto) 0.07 K/uL (0-0.2); Basophils % (auto) 0.4 %; Eosinophils # (auto) 0.07 K/uL (0-0.50); Eosinophils % (auto) 0.4 %; Hematocrit (blood only) 35.1 % (40.1-51.0); Hemoglobin 10.2 g/dl (14.0-18.0); Immature Granulocytes # (auto) 0.13 K/uL (0.00-0.02); Immature Granulocytes % (auto) 0.8 %; Lymphocytes # (auto) 0.88 K/uL (1.2-3.4); Lymphocytes % (auto) 5.2 %; Mean Corpuscular Hemoglobin 26.5 pg (25.0-34.0); Mean Corpuscular Hgb Conc 29.1 g/dL (32.0-36.0); Mean Corpuscular Volume 91.2 fL (80.0-100.0); Mean Platelet Volume 9.9 fL (9.4-12.4); Monocytes # (auto) 0.88 K/uL (0.24-0.82); Monocytes % (auto) 5.2 %; Neutrophils # (auto) 14.92 K/uL (1.4-6.5); Platelet Count 355 K/uL (130-400); RDW Coefficient of Variation 15.9 % (11.5-14.5); RDW Standard Deviation 52.9 fL (36.4-46.3); Red Blood Count 3.85 M/uL (4.63-6.08); White Blood Count 16.95 K/ul (4.8-10.8)
--- NOTE | 2022-03-17 11:51 | XRay Report ---
SINGLE VIEW CHEST CLINICAL HISTORY: Dyspnea. FINDINGS: An AP, portable, upright chest radiograph is compared to study chest x-ray and chest CT isiah ed 03/01/2022. The heart is enlarged noting atherosclerotic calcification of the thoracic aorta. There is pulmonary vascular congestion with evidence of interstitial edema. There are small pleural effusio ns with dependent consolidation. No pneumothorax is seen. The skeletal structures are osteopenic. The re are numerous healed left-sided rib fractures. IMPRESSION: 1. Cardiomegaly with evidence of congestive failure and pulmonary edema. This has modestly worsened a s compared 03/01/2022. 2. Small pleural effusions with dependent consolidation. ACT 112: Negative or not required by law. Electronically signed by: Uzair Wilson M.D. 03/17/2022 11:49 AM
[2022-03-17 11:56] LABS: Prothrombin Time 10.6 Seconds (9.0-12.0)
[2022-03-17 12:13] LABS: Albumin Globulin Ratio 1.4 (0.9-2); Albumin Level 4.2 gm/dl (3.4-5.0); BUN Creatinine Ratio 13.6 (10-20); Bilirubin,Total 0.8 mg/dl (0.2-1.0); Creatinine Clr Calc Pharmacy 35.8 ml/min; Est GFR (African American) 37.8 ml/min; Est GFR (Non-African American) 32.6 ml/min; Magnesium 2.3 mg/dl (1.7-2.4); Potassium 4.5 mmol/L (3.5-5.1); Total Protein 7.2 gm/dl (6.0-8.3)
--- NOTE | 2022-03-17 12:51 | History & Physical Report ---
Date of Service March 17, 2022 Assessment & Plan (1) Respiratory failure with hypoxia: Plan: -Admit to med/tele -Patient currently afebrile, hemodynamically stable, and stable on Bipap with a Peep of 5 and 40% FiO2 -Hypoxia and respiratory distress appear most liekly to be caused by another CHF exacerbation as patient is volume overloaded with a BNP of 1020 -Initial troponin elevated in the 70's, however, patient underwent cardiac cath during his last admission earlier this month and had moderate plaque burden in his coronary arteries, no EKG changes when compared to his last EKG earlier this month >Will repeat another troponin and EKG in approximately 3 hours, will contact cardiology with any concerning findings -Patient was covid positive on 03/01, still positive today, will keep in isolation for now -Adding on respiratory viral panel and procalcitonin to complete infectious workup -Will hold abx for now as patient has improved with bipap and lasix so far, can consider adding on later if infectious workup is positive -Will continue on Bipap moving forward and wean as able -Continue [employer] breathing treatments and scheduled incentive spirometry -Already received 40 mg IV lasix in the ed, hemodynamically stable, will give 20 mg IV additional and start 60 mg IV lasix BID tomorrow -Monitor BMP, mag and phos BID while getting heavy diuresis -Consulting cardiology for assistance with management and possible transfer to [facility] for TAVR (2) CHF (congestive heart failure): Plan: -See respiratory failure with hypoxia -Continue with IV diuresis for now (3) Heart failure with preserved ejection fraction: Plan: -See CHf (4) Hypertension: Plan: -Continue [employer] metoprolol, Imdur, -Monitor BP with antihypertensives and IV diuresis (5) Severe aortic stenosis: Plan: -Will consult cardiology for possible transfer to [facility] for TAVR (6) Troponin level elevated: Plan: -First elevated at 75, much improved compared to last admission -Likely due to demand ischemia prior to being placed on Bipap -Will repeat another troponin and EKG in 3 hours to ensure they are stable (7) Diabetes mellitus, type 2: Plan: -Will start with Lantus 15 units BID -Correction factor of 25 and carb ratio of 8 (8) GERD (gastroesophageal reflux disease): Plan: -[employer] omeprazole (9) COVID-19: Plan: -Positive on 03/01, still positive today -Will hold additional treatment for now and monitor on current CHF exacerbation treatment (10) CAD (coronary artery disease): Plan: -[employer] aspirin (11) CKD (chronic kidney disease): Plan: -Cr slightly increased at 1.9, baseline appears to be around 1.5-1.7 -Monitor renal function with diuresis (12) Obstructive sleep apnea syndrome: Plan: HS CPAP ordered (13) Anemia: Plan: -Hgb is current stable compared to last admission, continue to monitor Hgb daily (14) Dyslipidemia: Plan: [employer] statin Plan The patient was seen with and discussed with Dr. 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 Per chart review, the patient has multiple admissions recently for CHF exacerbation due to poor diet compliance and volume overload due to his severe aortic stenosis. The patient was recently seen in Cardiology clinic on 03/10/22 for post admission follow-up where he still reported chest discomfort and significant dyspnea on exertion. The patient recently decided he would like to undergo the TAVR procedure and his Dough Maker (Dr. Garland) was working on coordinating with Doc for the procedure. Per the ER report, the patient was dante in by EMS who initially found him to be hypoxic in the 50's and respirations in the 50's. He was placed on Bipap on arrival to the ED and remained stable. He was found to have an elevated troponin of 75 and BNP of 1020. The patient was given 40 mg IV lasix. The ED touched base with [facility] who will not have open beds for at least 48 hours so he was admitted to our service for stabilization. At the time of the exam the patient was sitting comfortably in bed with Bipap in place and in no acute distress. When asked about his recent salt intake the patient stated that he was making and eating pork sausage recently. He has been having progressive SOB and chest discomfort over the past few days. His has been up at the [facility] so he has been home alone. He states that since starting the Bipap his breathing is improved and his chest discomfort has resolved. He denies recent fevers, chills, headache, changes in vision, hearing, taste, and smell, abdominal pain. Allergies Allergy/AdvReac Type Severity Reaction Status Date / Time sulfamethoxazole Allergy Hives Verified 03/10/22 15:29 [From Bactrim] trimethoprim [From Bactrim] Allergy Hives Verified 03/10/22 15:29 Home Medications Medication Instructions Recorded Confirmed Type aspirin 81 mg tablet,delayed 81 mg PO BID 04/25/18 03/10/22 History release multivitamin 1 tab PO QAM 04/25/18 03/10/22 History guaifenesin 1,200 mg tablet, 1,200 mg PO BID 04/27/19 03/10/22 History extended release 12 hr (Mucinex) CPAP Machine #1 ea 07/17/19 03/10/22 Rx CPAP Supplies #1 ea 05/23/20 03/10/22 Rx nebulizers (Aeroneb Go Nebulizer) #1 ea 05/23/20 03/10/22 Rx Flutter Valve #1 ea 05/24/20 03/10/22 Rx dulaglutide 0.75 mg/0.5 mL 0.75 mg subcut .weekly 11/08/20 03/10/22 History subcutaneous pen injector (Trulicity) ipratropium 0.5 mg-albuterol 3 mg 3 ml inhalation Q8H PRN shortness 11/25/20 03/10/22 Rx (2.5 mg base)/3 mL nebulization of breath or wheezing #270 mL soln fluticasone propionate 50 1 spray intranasal DAILY #9.9 grams 03/24/21 03/10/22 Rx mcg/actuation nasal spray,suspension (Allergy Relief (fluticasone)) isosorbide mononitrate 60 mg 60 mg PO DAILY 11/08/21 03/10/22 History tablet,extended release 24 hr umeclidinium 62.5 mcg-vilanterol 1 inh inhalation DAILY #60 ea 11/13/21 03/10/22 Rx 25 mcg/actuation powdr for inhalation (Anoro Ellipta) potassium chloride 10 mEq 20 meq PO .COMPLEX 01/14/22 03/10/22 History capsule,extended release ferrous sulfate 324 mg (65 mg 324 mg PO Q OTHER DAY #30 tabs 03/06/22 03/10/22 Rx iron) tablet,delayed release furosemide 40 mg tablet 40 mg PO DAILY #30 tabs 03/06/22 03/10/22 Rx pantoprazole 40 mg tablet,delayed 40 mg PO BID #60 tabs 03/06/22 03/10/22 Rx release empagliflozin 10 mg tablet 10 mg PO DAILY #90 tabs 03/10/22 03/10/22 Rx gabapentin 300 mg capsule 300 mg PO BID #180 caps 03/10/22 03/10/22 Rx insulin lispro protamine-lispro 50 unit subcut QPM 03/10/22 03/10/22 History 100 unit/mL (75-25) subcutaneous susp (Humalog Mix 75-25(U-100)Insuln) insulin lispro protamine-lispro 75 unit subcut QAM 03/10/22 03/10/22 History 100 unit/mL (75-25) subcutaneous susp (Humalog Mix 75-25(U-100)Insuln) metoprolol succinate 100 mg 100 mg PO DAILY #90 tabs 03/10/22 03/10/22 Rx tablet,extended release 24 hr rosuvastatin 40 mg tablet 40 mg PO DAILY #90 tabs 03/10/22 03/10/22 Rx Past Med/Surg History Medical History Abnormal stress echo Anemia CAD (coronary artery disease) NON-OBSTRUCTIVE Cholelithiasis CKD (chronic kidney disease) baseline creatinine 1.6 Diabetes Diabetes mellitus, type 2 IDDM, +B/L FEET NEUROPATHY Dyspnea on exertion Gastro-esophageal reflux GERD (gastroesophageal reflux disease) Hearing deficit wears hearing aids Heart failure with preserved ejection fraction Hiatal hernia High cholesterol Hyperlipidemia Hypertension Hypertension Impacted cerumen of left ear Lip ulcer Lung cancer Discharge summary dated 04/06/[address] Mari: HOSPITAL COURSE: This is a very nice 77-year-old male who was found to have a mass. It certainly appeared to be a carcinoma in the left upper lobe. We worked him up and felt he would be a candidate for a resection. Upon opening the lung, getting into the patient's chest with our robotic thoracoscopic resection on 03/30/2018, I was quite pleased. We took down the fissure quite nicely, took down all of the arterial branches but one and had the vein isolated as well as the bronchus and the patient had a tear of this remaining artery. We controlled this, we had to open the chest. We eventually got control and I repaired this primarily. The patient was extubated later that day. We had a significant blood loss. The patient was transfused. He also had a creatinine of 1.71 preop. This went as high as 3 in the subsequent days, but then came back down. He looked very good the day after surgery. He was requiring no oxygen and was eating a regular diet. We had some drainage from the chest tubes. We kept it in for a few days. There was no evidence of bleeding. Frankly I was quite pleased with him. He was ambulating in the hallway. He was moving his bowels, although he required some cathartics. Hemoglobin settled down in the low 8. We left it there after used 4 units total of blood. Creatinine came back down. He was making excellent urine. Creatinine was 2.51 the day before discharge. His incisions were all clean. We removed his chest tube after he had a small pneumothorax, a small amount of fluid and on 04/05/2018, I performed an aspiration of this and his pneumothorax had resolved. I was quite happy with this. The following day, I did not really see much of pneumothorax. He had a bit more fluid, but he was on room air, ambulating and I think it is best for him to go home. 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 I told her to call me directly should there be any issues. Quite frankly, I was quite pleased with him. His incisions were clean. He had very little in the way of pain. We did send him home on tramadol and told to resume his regular medications. I will see him back in the office next week. 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 Robotic L VATS converted to open procedure. Glidescope assisted PERFECTO insertion. During surgery there was significant bleeding from the pulmonary artery which forced a change to an open thoracotomy and was difficult to control. Fluids were given followed by blood and between the blood loss and manipulation in the chest there were some brief times when the eros was showing very little pulse. His CO2 tracing dropped but never went to nothing. Along with the fluids he did receive 0.5mg epi and 2 units of vasopressin in addition to occasional small doses of ephedrine and phenylephrine. Blood loss was controlled and his vitals stabilized for the rest of the case. At the end of the procedure, we changed to a single lumen ETT and Dr Mari did a bronchoscopy which showed a little blood in the bronchi but basically clear. He is making urine, his vitals are stable, we are leaving him on the ventilator for the mean time to allow him to wake and make sure he is not acidotic. Labs and chest film are being done now - report to ICU MD. Surgical History History of cardiac cath [id number] NO STENTS [facility] 2021 no stents [facility] History of cholecystectomy 11/22/2014. DL x2. Glidescope #3 by [facility] and 7.5 ETT inserted. Grade 3 view. History of colonoscopy History of lobectomy of lung left upper lobe 03/30/2018 [facility] S/P lobectomy of lung Family History Father Cardiac disorder Other No family history of bleeding disorder Social History Smoking Status: Former smoker Tobacco Type: Smokeless Tobacco (Dip or Chew) Second Hand Exposure: No; Hx Alcohol Use: No Hx Substance Use: No Preferred Language: Irish Communication Ability: Effective Visual Impairment: No Limitations Content Strategist Required: No Beliefs That Will Affect Care: None marital status: Current Living Situation: Spouse current occupational status: retired Feels Safe at Home: Yes Dental Care, Regularly: Yes Seatbelt Use: always Sunscreen Use: No Assistive Devices: Cane and Walker Review of Systems Review of Systems: Denies current fever, chills, headache, changes in vision, hearing, taste, and smell, abdominal pain, nausea, vomiting, diarrhea, hematemesis, melena, dysuria, hematuria, and recent falls. Physical Exam Physical Exam: Physical Exam: General: In no acute distress, stated age, chronically ill-appearing HEENT: Normocephalic, atraumatic, Bipap mask currently in place, no scleral icterus, pupils around round, symmetrical, and reactive to light, +JVD, trachea midline, no thyromegaly Chest/Pulm: No respiratory distress, symmetrical chest expansion, decreased breath sounds in the BL lower lung fontana, expiratory wheezing noted in all other lung fontana, absent lung sounds in the left upper lung field Cardiac: tachycardic rate, regular rhythm, systolic murmur noted Abdomen: Negative for ascites and bruising, normoactive bowel sounds, soft, non-tender to palpation throughout Musculoskeletal: Symmetrical and without signs of acute trauma, upper and lower extremities with full ROM, no atrophy, spasticity, or flaccidity Neuro: Alert and oriented to person, place, month, year, and president, no focal defects, CN II-XII tested and intact, finger to nose test negative, no tremors noted Psych: No acute distress, calm and cooperative during the exam Results & Data Results & Data ([facility]) Vital Signs (Past 12 Hours) Vital Signs Temp Pulse Resp BP Pulse Ox O2 Del Method FiO2 03/17/22 12:45 92 H 15 127/71 100 03/17/22 12:30 89 19 99 03/17/22 12:30 118/58 L 03/17/22 12:15 116/59 L 03/17/22 12:15 94 H 19 97 03/17/22 12:00 101 H 24 99 03/17/22 11:45 101 H 24 131/61 98 03/17/22 11:25 99 CPAP 03/17/22 11:25 36.3 C L 105 H 23 135/88 99 CPAP 03/17/22 11:25 BiPAP 03/17/22 11:32 36 H 96 40 Laboratory Results Abnormal lab results 03/17/22 03/17/22 03/17/22 Range/Units 11:31 11:31 11:31 WBC 16.95 H (4.8-10.8) K/ul RBC 3.85 L (4.63-6.08) M/uL Hgb 10.2 L (14.0-18.0) g/dl Hct 35.1 L (40.1-51.0) % MCHC 29.1 L (32.0-36.0) g/dL RDW Std Deviation 52.9 H (36.4-46.3) fL RDW Coeff of Mac 15.9 H (11.5-14.5) % Neut # (Auto) 14.92 H (1.4-6.5) K/uL Lymph # (Auto) 0.88 L (1.2-3.4) K/uL Knox # (Auto) 0.88 H (0.24-0.82) K/uL Immature Gran # (Auto) 0.13 H (0.00-0.02) K/uL BUN 26 H (6-23) mg/dl Creatinine 1.91 H (0.6-1.4) mg/dl Glucose 267 H (70-99(Fasting)) mg/dl Troponin I High Sens 75.0 H* D (0-20) pg/ml B-Natriuretic Peptide 1020 H (0-100) pg/ml SARS-CoV-2, RNA, NAAT (NEGATIVE) 03/17/22 Range/Units 12:45 WBC (4.8-10.8) K/ul RBC (4.63-6.08) M/uL Hgb (14.0-18.0) g/dl Hct (40.1-51.0) % MCHC (32.0-36.0) g/dL RDW Std Deviation (36.4-46.3) fL RDW Coeff of Mac (11.5-14.5) % Neut # (Auto) (1.4-6.5) K/uL Lymph # (Auto) (1.2-3.4) K/uL Knox # (Auto) (0.24-0.82) K/uL Immature Gran # (Auto) (0.00-0.02) K/uL BUN (6-23) mg/dl Creatinine (0.6-1.4) mg/dl Glucose (70-99(Fasting)) mg/dl Troponin I High Sens (0-20) pg/ml B-Natriuretic Peptide (0-100) pg/ml SARS-CoV-2, RNA, NAAT POSITIVE A* (NEGATIVE) Diagnostic Findings Chest X-Ray 03/17/22 11:30 SINGLE VIEW CHEST CLINICAL HISTORY: Dyspnea. FINDINGS: An AP, portable, upright chest radiograph is compared to study chest x-ray and chest CT dated 03/01/2022. The heart is enlarged noting atherosclerotic calcification of the thoracic aorta. There is pulmonary vascular congestion with evidence of interstitial edema. There are small pleural effusions with dependent consolidation. No pneumothorax is seen. The skeletal structures are osteopenic. There are numerous healed left-sided rib fractures. IMPRESSION: 1. Cardiomegaly with evidence of congestive failure and pulmonary edema. This has modestly worsened as compared 03/01/2022. 2. Small pleural effusions with dependent consolidation. ACT 112: Negative or not required by law. Electronically signed by: Uzair Wilson M.D. 03/17/2022 11:49 AM ECG Additional Comments: Sinus tachycardia Left ventricular hypertrophy with repolarization abnormality Abnormal ECG When compared with ECG of 01-MAR-2022 09:24, No significant change was found Code Status & VTE Plan Code Status No code VTE Prophylaxis Plan VTE Prophylaxis will be ordered: Yes Supervising Physician Co-Signing Physician Notes Patient seen and examined, chart reviewed, case discussed with Freddy Branham PA-C and I agree with the assessment and plan as above except as otherwise noted Labs and images reviewed Juancho is a 81-year-old male with a past medical history of coronary artery disease, severe aortic stenosis pending evaluation for TAVR, recurrent episodes of CHF with preserved ejection fraction, type 2 diabetes, CKD, COPD, hyperlipidemia, and history of left upper lung adenocarcinoma status post lobectomy who presents with fluid overload and shortness of breath following dietary indiscretion with pork sausage products. Imaging shows evidence of fluid overload, BNP is elevated, troponin is elevated although lower than prior. Patient has received 1 dose of IV Lasix and was placed on PPV and is clinically improving. On bedside assessment patient is on CPAP, appears more comfortable, with regular respiratory rate. Patient with bilateral lower edema, diminished air movement with rales. Systolic murmur is present. JVD is present. PCT and respiratory panel are pending giving mildly elevated white count, though suspect reactive. Deferred empiric antibiotics, if signs of COPD exacerbation or clinical sufficient for pneumonia treat at that time Acute on chronic CHF with preserved ejection fraction: Continue Lasix 60 mg twice daily, titrate to net 1 L output per day. BMP daily. Cautious overdiuresis as patient improves given preload dependence with aortic stenosis. Trend troponin. Recently had cath as noted. Aortic stenosis, severe, symptomatic. Patient would like to pursue aortic stenosis treatment with TAVR. Had a cath to help facilitate this at prior admission. [facility] has no beds available for 48 hours and patient requires fluid optimization at this time. Some discussion about whether he should have evaluation for anemia/GI bleed prior to this, on further discussion patient had uptrending hemoglobin and clinically did well with PPI therapy and is high risk for procedures given his pulmonary status/history of lobectomy and so endoscopy was deferred as long as patient's hemoglobin remains stable. DM: Management as above COPD: As above, acute respiratory decline likely 2/2 volume overload. No reduced reserve due to history of lobectomy. DVT prophylaxis: Heparin pending renal function reevaluation, can switch to Lovenox if improving with diuresis PG Care Time/CCT Total # of Minutes Spent Total Time Spent with Patient: Total time spent is greater than 50% in coordination of care (as documented) at patient's floor/unit and/or counseling patient: [place] [address] Initial Inpt Care Lvl 1 Patient Type Established History Expanded Problem Focused Exam Expanded Problem Focused Medical Decision Making Moderate Complexity Diagnoses Respiratory failure with hypoxia J96.21 Chronicity: acute on chronic CHF (congestive heart failure) I50.9 Heart failure with preserved ejection fraction I50.30 Hypertension I10 Severe aortic stenosis I35.0 Troponin level elevated R77.8 Diabetes mellitus, type 2 E11.9 GERD (gastroesophageal reflux disease) K21.9 COVID-19 U07.1 CAD (coronary artery disease) I25.10 CKD (chronic kidney disease) N18.9 Obstructive sleep apnea syndrome G47.33 Anemia D64.9 Dyslipidemia E78.5 (1) Respiratory failure with hypoxia Chronicity: acute on chronic Qualified Code(s): J96.21 - Acute and chronic respiratory failure with hypoxia
--- NOTE | 2022-03-17 13:31 | Electrocardiogram Report ---
Test Reason : Blood Pressure : / mmHG Vent. Rate : 113 BPM Atrial Rate : 113 BPM P-R Int : 164 ms QRS Dur : 092 ms QT Int : 332 ms P-R-T Axes : 060 019 253 degrees QTc Int : 455 ms Sinus tachycardia Left ventricular hypertrophy with repolarization abnormality Abnormal ECG When compared with ECG of 01-MAR-2022 09:24, No significant change was found Confirmed by Juan Manuel Santoro ([id number]) on 03/17/2022 1:30:41 PM Referred By: REFERRED SELF Confirmed By:Juan Manuel Santoro
[2022-03-17] MEDS ORDERED: FUROSEMIDE INJ 20 MG/2 ML VIAL IV ONE (13:48)
[2022-03-17] MEDS ORDERED: ALBUT/IPRATROP 3MG/0.5MG NEB 3 ML VIAL INH PRN (14:58)
[2022-03-17] MEDS ORDERED: GLUCOSE 40% GEL 15 GM TUBE PO PRN (14:58)
[2022-03-17] MEDS ORDERED: CARBOHYDRATES FOR HYPOGLYCEMIA PO PRN (14:58)
[2022-03-17] MEDS ORDERED: GLUCOSE 10 TAB/TUBE PO PRN (14:58)
[2022-03-17] MEDS ORDERED: DEXTROSE 50% 50 ML SYRINGE IV PRN (14:58)
[2022-03-17] MEDS ORDERED: GLUCAGON FOR INJ 1 MG VIAL SQ PRN (14:58)
[2022-03-17] MEDS ORDERED: ACETAMINOPHEN 325 MG TAB PO PRN (14:58)
--- NOTE | 2022-03-17 15:39 | Cardiology Consultation ---
Date of Consultation March 17, 2022 Assessment & Plan (1) Acute on chronic heart failure with preserved ejection fraction (HFpEF): (2) Severe aortic stenosis: (3) Nonocclusive coronary atherosclerosis of [place] coronary artery: (4) CKD (chronic kidney disease): (5) COVID-19: Plan 81-year-old man with recurrent heart failure hospitalizations and severe aortic stenosis who was to begin evaluation for potential TAVR now admitted with acute pulmonary edema, markedly improved after IV diuresis/BiPAP. Fortunately, as noted, he has only nonocclusive coronary artery disease, his symptom of chest discomfort and findings of abnormal ECG/elevated troponin are likely related to demand ischemia. Mainstay of therapy is optimizing hemodynamics, primarily through volume unloading as he appears significantly hypervolemic. Agree with restarting his usual cardiac medications of aspirin, metoprolol, isosorbide mononitrate, and rosuvastatin. Subcu heparinization seems appropriate, as his presentation is unlikely to represent an acute thrombotic event. Once clinically stable, he will need either very close follow-up as an outpatient or possibly remain as an inpatient until such time as he can proceed to TAVR (if appropriate candidate). Will inform Dr. Garland (his primary cardi ologist) and will begin making arrangements for TAVR evaluation at [facility] (patient's preference). I will continue to follow along from a cardiac standpoint during his inpatient stay. History of Present Illness Reason for Consultation: chf exacerbation and severe aortic stenosis Requesting Physician: Robby Linares MD Attending Physician: Robby Linares MD History of Present Illness 81-year-old man with severe aortic stenosis, HFpEF, nonocclusive coronary disease on recent cardiac catheterization, and multiple medical problems who has been hospitalized for acute congestive heart failure October 2021, January 2022, and earlier this month (discharged 03/06/2022), currently admitted with acute pulmonary edema/respiratory failure responding to BiPAP and diuresis. As of his most recent hospitalization, he was interested in pursuing transcatheter aortic valve replacement (TAVR) at [facility] in [place], but the arrangements had not yet been finalized. He felt reasonably well after his recent hospital discharge, but noted that approximately 3 days ago his weight jumped from about 212 pounds to 218 pounds. Despite this, he had no substantial symptoms yesterday and slept well overnight. He awoke this morning and walked the dog, became acutely dyspneic and noted chest pressure. He was brought to the ER by EMS and was hypertensive, tachypn eic, and demonstrated pulmonary edema on chest x-ray. He was treated with BiPAP and IV furosemide and has markedly improved. At the time of our evaluation, the patient was lying flat and comfortable on BiPAP and denied any chest pain or dyspnea at rest. His hemodynamics were favorable with only mildly hypertensive BP and nontachycardic heart rate. Allergies Allergy/AdvReac Type Severity Reaction Status Date / Time sulfamethoxazole Allergy Hives Verified 03/10/22 15:29 [From Bactrim] trimethoprim [From Bactrim] Allergy Hives Verified 03/10/22 15:29 Home Medications Medication Instructions Recorded Confirmed Type aspirin 81 mg tablet,delayed 81 mg PO BID 04/25/18 03/10/22 History release multivitamin 1 tab PO QAM 04/25/18 03/10/22 History guaifenesin 1,200 mg tablet, 1,200 mg PO BID 04/27/19 03/10/22 History extended release 12 hr (Mucinex) CPAP Machine #1 ea 07/17/19 03/10/22 Rx CPAP Supplies #1 ea 05/23/20 03/10/22 Rx nebulizers (Aeroneb Go Nebulizer) #1 ea 05/23/20 03/10/22 Rx Flutter Valve #1 ea 05/24/20 03/10/22 Rx dulaglutide 0.75 mg/0.5 mL 0.75 mg subcut .weekly 11/08/20 03/10/22 History subcutaneous pen injector (Trulicity) ipratropium 0.5 mg-albuterol 3 mg 3 ml inhalation Q8H PRN shortness 11/25/20 03/10/22 Rx (2.5 mg base)/3 mL nebulization of breath or wheezing #270 mL soln fluticasone propionate 50 1 spray intranasal DAILY #9.9 grams 03/24/21 03/10/22 Rx mcg/actuation nasal spray,suspension (Allergy Relief (fluticasone)) isosorbide mononitrate 60 mg 60 mg PO DAILY 11/08/21 03/10/22 History tablet,extended release 24 hr umeclidinium 62.5 mcg-vilanterol 1 inh inhalation DAILY #60 ea 11/13/21 03/10/22 Rx 25 mcg/actuation powdr for inhalation (Anoro Ellipta) potassium chloride 10 mEq 20 meq PO .COMPLEX 01/14/22 03/10/22 History capsule,extended release ferrous sulfate 324 mg (65 mg 324 mg PO Q OTHER DAY #30 tabs 03/06/22 03/10/22 Rx iron) tablet,delayed release furosemide 40 mg tablet 40 mg PO DAILY #30 tabs 03/06/22 03/10/22 Rx pantoprazole 40 mg tablet,delayed 40 mg PO BID #60 tabs 03/06/22 03/10/22 Rx release empagliflozin 10 mg tablet 10 mg PO DAILY #90 tabs 03/10/22 03/10/22 Rx gabapentin 300 mg capsule 300 mg PO BID #180 caps 03/10/22 03/10/22 Rx insulin lispro protamine-lispro 50 unit subcut QPM 03/10/22 03/10/22 History 100 unit/mL (75-25) subcutaneous susp (Humalog Mix 75-25(U-100)Insuln) insulin lispro protamine-lispro 75 unit subcut QAM 03/10/22 03/10/22 History 100 unit/mL (75-25) subcutaneous susp (Humalog Mix 75-25(U-100)Insuln) metoprolol succinate 100 mg 100 mg PO DAILY #90 tabs 03/10/22 03/10/22 Rx tablet,extended release 24 hr rosuvastatin 40 mg tablet 40 mg PO DAILY #90 tabs 03/10/22 03/10/22 Rx Patient History Medical History (Updated 03/17/22 @ 16:21 by Juan Manuel Santoro MD) Anemia CAD (coronary artery disease) NON-OBSTRUCTIVE Cholelithiasis CKD (chronic kidney disease) baseline creatinine 1.6 Diabetes Diabetes mellitus, type 2 IDDM, +B/L FEET NEUROPATHY Dyspnea on exertion Gastro-esophageal reflux GERD (gastroesophageal reflux disease) Hearing deficit wears hearing aids Heart failure with preserved ejection fraction Hiatal hernia High cholesterol Hyperlipidemia Hypertension Hypertension Impacted cerumen of left ear Lip ulcer Lung cancer Discharge summary dated 04/06/[address] Mari: HOSPITAL COURSE: This is a very nice 77-year-old male who was found to have a mass. It certainly appeared to be a carcinoma in the left upper lobe. We worked him up and felt he would be a candidate for a resection. Upon opening the lung, getting into the patient's chest with our robotic thoracoscopic resection on 03/30/2018, I was quite pleased. We took down the fissure quite nicely, took down all of the arterial branches but one and had the vein isolated as well as the bronchus and the patient had a tear of this remaining artery. We controlled this, we had to open the chest. We eventually got control and I repaired this primarily. The patient was extubated later that day. We had a significant blood loss. The patient was transfused. He also had a creatinine of 1.71 preop. This went as high as 3 in the subsequent days, but then came back down. He looked very good the day after surgery. He was requiring no oxygen and was eating a regular diet. We had some drainage from the chest tubes. We kept it in for a few days. There was no evidence of bleeding. Frankly I was quite pleased with him. He was ambulating in the hallway. He was moving his bowels, although he required some cathartics. Hemoglobin settled down in the low 8. We left it there after used 4 units total of blood. Creatinine came back down. He was making excellent urine. Creatinine was 2.51 the day before discharge. His incisions were all clean. We removed his chest tube after he had a small pneumothorax, a small amount of fluid and on 04/05/2018, I performed an aspiration of this and his pneumothorax had resolved. I was quite happy with this. The following day, I did not really see much of pneumothorax. He had a bit more fluid, but he was on room air, ambulating and I think it is best for him to go home. 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 I told her to call me directly should there be any issues. Quite frankly, I was quite pleased with him. His incisions were clean. He had very little in the way of pain. We did send him home on tramadol and told to resume his regular medications. I will see him back in the office next week. 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 Robotic L VATS converted to open procedure. Glidescope assisted PERFECTO insertion. During surgery there was significant bleeding from the pulmonary artery which forced a change to an open thoracotomy and was difficult to control. Fluids were given followed by blood and between the blood loss and manipulation in the chest there were some brief times when the eros was showing very little pulse. His CO2 tracing dropped but never went to nothing. Along with the fluids he did receive 0.5mg epi and 2 units of vasopressin in addition to occasional small doses of ephedrine and phenylep hrine. Blood loss was controlled and his vitals stabilized for the rest of the case. At the end of the procedure, we changed to a single lumen ETT and Dr Mari did a bronchoscopy which showed a little blood in the bronchi but basically clear. He is making urine, his vitals are stable, we are leaving him on the ventilator for the mean time to allow him to wake and make sure he is not acidotic. Labs and chest film are being done now - report to ICU MD. Surgical History History of cardiac cath [id number] NO STENTS [facility] 2021 no stents [facility] History of cholecystectomy 11/22/2014. DL x2. Glidescope #3 by ELIANA and 7.5 ETT inserted. Grade 3 view. History of colonoscopy History of lobectomy of lung left upper lobe 03/30/2018 [facility] S/P lobectomy of lung Family History Father Cardiac disorder Other No family history of bleeding disorder Social History Smoking Status: Former smoker Tobacco Type: Smokeless Tobacco (Dip or Chew) Second Hand Exposure: No; Do You Dip or Chew Tobacco: No; Hx Alcohol Use: No Hx Substance Use: No Preferred Language: Kyrgyz Communication Ability: Effective Visual Impairment: No Limitations Web Services Developer Required: No Beliefs That Will Affect Care: None marital status: Current Living Situation: Spouse current occupational status: retired Other Information That Helps Us Care for You: No Feels Safe at Home: Yes Safety Concerns: Feels Safe At This Time Dental Care, Regularly: Yes Seatbelt Use: always Sunscreen Use: No Assistive Devices: Cane, Glasses, Hearing Aid - Bilateral and Walker Physical Exam Physical Exam: Elderly white male who no longer appears distressed. BMI 34. BP 164/79 mmHg. Pulse 90 bpm and regular. Skin: no ecchymoses or generalized lesions. HEENT: unremarkable. Neck: Jugular venous pulse markedly elevated (to the angle of the jaw at 60 degrees), carotids with bilateral transmitted murmur. Lungs: Moderately decreased breath sounds with rare crackles but generalized rhonchi and expiratory wheezing. No abdominal paradox or accessory muscle use. Cardiac: regular rhythm, harsh 3/6 crescendo decrescendo systolic ejection murmur heard best in the suprasternal notch and radiating widely, absent aortic closure sound, no diastolic murmur. Abdomen: benign. Extremities: 1+ mildly pitting pretibial edema, limbs warm. Neurologic: normal affect and conversation, nonfocal. Results & Data ([facility]) Laboratory Results Normal electrolytes, BUN 26, creatinine 1.9. Hemoglobin 10.2. WBC 16.95. Normal platelet count. Troponin 75. BNP 1020. PT PTT normal. Diagnostic Findings ECG showed sinus rhythm with left ventricular per trophy and repolarization abnormalities, including several millimeters of downsloping ST depression predominantly in the anterolateral leads. Compared with ECG from earlier this month, mild increase in ST depression but no major change. Chest x-ray showed pulmonary edema, worse compared with earlier this month. Small pleural effusions. Cardiac catheterization 03/03/2022 showed mild to moderate nonobstructive CAD. Echocardiogram 03/02/2022 showed low normal systolic function (EF 50 to 55%), severe LVH, severe aortic stenosis (dimensionless index 0.16, calculated valve area 0.55 cm), mild mitral regurgitation. No change compared with January 2022 study. PG Care Time/CCT Total # of Minutes Spent Total Time Spent with Patient: Total time spent is greater than 50% in coordination of care (as documented) at patient's floor/unit and/or counseling patient: Coding Level of Care Code 78049 Inpt Consult Level 4 Diagnoses Acute on chronic heart failure with preserved ejection fraction (HFpEF) I50.33 Severe aortic stenosis I35.0 Nonocclusive coronary atherosclerosis of [place] coronary artery I25.10 CKD (chronic kidney disease) N18.9 COVID-19 U07.1
[2022-03-17] MEDS: UMECLIDINIUM/VILANTEROL 62.5/25MCG 7 PUFFS/INHALER INH SCH (15:56)
[2022-03-17] MEDS: FERROUS SULFATE 325 MG TAB PO SCH (15:56)
[2022-03-17] MEDS: HEPARIN SOD 5,000 UNIT/0.5 ML VIAL SQ SCH ×2 (15:58→21:10)
[2022-03-17] MEDS ORDERED: INSULIN ASPART PER UNIT SC SCH ×2 (16:30→18:00)
--- NOTE | 2022-03-17 17:02 | Communication Note ---
Date of Service: March 17, 2022 Repeat troponin noted to be at significantly elevated at 3028 compared to first troponin of 75. Patient is still asymptomatic and repeat EKG at time of repeat troponin showing much improved ST segment depressions. Likely from demand ischemia, will continue to trend troponin and EKG overnight.Confirmed with nursing staff that they will get serial EKGs overnight and will pass on to night shift supervisor.
[2022-03-17 17:18] LABS: Adenovirus PCR Not Detected (NotDetected); Bordetella parapertussis PCR Not Detected (NotDetected); Bordetella pertussis PCR Not Detected (NotDetected); Chlamydia pneumoniae PCR Not Detected (NotDetected); Coronavirus 229E PCR Not Detected (NotDetected); Coronavirus CoV-2 (COVID19)PCR Not Detected (NotDetected); Coronavirus HKU1 PCR Not Detected (NotDetected); Coronavirus NL63 PCR Not Detected (NotDetected); Coronavirus OC43PCR Not Detected (NotDetected); Human Metapneumovirus PCR Not Detected (NotDetected); Influenza A PCR Not Detected (NotDetected); Influenza B PCR Not Detected (NotDetected); Mycoplasma pneumoniae PCR Not Detected (NotDetected); Parainfluenza Virus 1 PCR Not Detected (NotDetected); Parainfluenza Virus 2 PCR Not Detected (NotDetected); Parainfluenza Virus 3 PCR Not Detected (NotDetected); Parainfluenza Virus 4 PCR Not Detected (NotDetected); Respiratory Syncytial VirusPCR Not Detected (NotDetected); Rhinovirus/Enterovirus PCR Not Detected (NotDetected)
[2022-03-17 18:45] LABS: Phosphorus 4.7 mg/dl (2.5-4.9)
[2022-03-17 18:58] LABS: Troponin I High Sensitivity 8200.8 pg/ml (0-20)
[2022-03-17] MEDS ORDERED: Nursing to Pharmacy Communication SCH (19:15)
[2022-03-17] MEDS: INSULIN ASPART PER UNIT SC SCH (20:53)
[2022-03-17] MEDS: LANTUS PER UNIT CHARGE SQ SCH (20:54)
[2022-03-17] MEDS ORDERED: LANTUS PER UNIT CHARGE SQ SCH (21:00)
[2022-03-17] MEDS: PANTOprazole 40 MG TAB PO SCH (21:07)
[2022-03-17] MEDS: GABAPENTIN 300 MG CAP PO SCH (21:07)
[2022-03-17] MEDS: ASPIRIN 81 MG ECTAB PO SCH (21:08)
[2022-03-18] MEDS: HEPARIN SOD 5,000 UNIT/0.5 ML VIAL SQ SCH ×2 (06:07→21:33)
[2022-03-18] MEDS: LANTUS PER UNIT CHARGE SQ SCH ×2 (08:30→21:35)
[2022-03-18] MEDS: INSULIN ASPART PER UNIT SC SCH ×4 (08:30→21:34)
--- NOTE | 2022-03-18 08:35 | Electrocardiogram Report ---
Test Reason : Blood Pressure : / mmHG Vent. Rate : 076 BPM Atrial Rate : 076 BPM P-R Int : 168 ms QRS Dur : 092 ms QT Int : 418 ms P-R-T Axes : 042 022 -43 degrees QTc Int : 470 ms Normal sinus rhythm Left ventricular hypertrophy with repolarization abnormality Abnormal ECG When compared with ECG of 17-MAR-2022 16:21, No significant change was found Confirmed by Juan Manuel Santoro ([id number]) on 03/18/2022 8:34:53 AM Referred By: REFERRED SELF Confirmed By:Juan Manuel Santoro
--- NOTE | 2022-03-18 08:35 | Electrocardiogram Report ---
Test Reason : Blood Pressure : / mmHG Vent. Rate : 072 BPM Atrial Rate : 072 BPM P-R Int : 160 ms QRS Dur : 092 ms QT Int : 406 ms P-R-T Axes : 049 023 -58 degrees QTc Int : 444 ms Normal sinus rhythm Left ventricular hypertrophy with repolarization abnormality Abnormal ECG When compared with ECG of 17-MAR-2022 11:25, Vent. rate has decreased BY [address] less depressed in Lateral leads Confirmed by Juan Manuel Santoro ([id number]) on 03/18/2022 8:34:43 AM Referred By: REFERRED SELF Confirmed By:Juan Manuel Santoro
[2022-03-18] MEDS: FUROSEMIDE 40 MG/4 ML VIAL IV SCH ×2 (08:39→21:34)
--- NOTE | 2022-03-18 08:41 | Electrocardiogram Report ---
Test Reason : Blood Pressure : / mmHG Vent. Rate : 082 BPM Atrial Rate : 082 BPM P-R Int : 174 ms QRS Dur : 090 ms QT Int : 414 ms P-R-T Axes : 044 006 -30 degrees QTc Int : 483 ms Normal sinus rhythm Left atrial enlargement Left ventricular hypertrophy with repolarization abnormality Prolonged QT Abnormal ECG When compared with ECG of 17-MAR-2022 11:25, ST less depressed in Lateral leads Confirmed by Juan Manuel Santoro ([id number]) on 03/18/2022 8:40:58 AM Referred By: REFERRED SELF Confirmed By:Juan Manuel Santoro
--- NOTE | 2022-03-18 08:42 | Electrocardiogram Report ---
Test Reason : Blood Pressure : / mmHG Vent. Rate : 065 BPM Atrial Rate : 065 BPM P-R Int : 170 ms QRS Dur : 094 ms QT Int : 466 ms P-R-T Axes : 050 014 -43 degrees QTc Int : 484 ms Normal sinus rhythm with sinus arrhythmia Left atrial enlargement Left ventricular hypertrophy with repolarization abnormality Abnormal ECG When compared with ECG of 17-MAR-2022 21:01, No significant change was found Confirmed by Juan Manuel Santoro ([id number]) on 03/18/2022 8:41:55 AM Referred By: REFERRED SELF Confirmed By:Juan Manuel Santoro
[2022-03-18] MEDS: FLUTICASONE PROPIONATE NA SPR 16 GM BTL SCH (08:43)
[2022-03-18] MEDS: ASPIRIN 81 MG ECTAB PO SCH ×2 (08:44→21:33)
[2022-03-18] MEDS: METOPROLOL SUCC 50MG EXT REL TAB PO SCH (08:44)
[2022-03-18] MEDS: PANTOprazole 40 MG TAB PO SCH ×2 (08:44→21:32)
[2022-03-18] MEDS: GABAPENTIN 300 MG CAP PO SCH ×2 (08:44→21:33)
[2022-03-18] MEDS: ISOSORBIDE MONO EXTENDED REL 60 MG TABCR PO SCH (08:44)
[2022-03-18] MEDS: UMECLIDINIUM/VILANTEROL 62.5/25MCG 7 PUFFS/INHALER INH SCH (08:45)
[2022-03-18] MEDS: ROSUVASTATIN CALCIUM 20 MG TAB PO SCH (08:45)
--- NOTE | 2022-03-18 08:50 | Electrocardiogram Report ---
Test Reason : Blood Pressure : / mmHG Vent. Rate : 077 BPM Atrial Rate : 077 BPM P-R Int : 172 ms QRS Dur : 092 ms QT Int : 424 ms P-R-T Axes : 047 017 -46 degrees QTc Int : 479 ms Normal sinus rhythm Left atrial enlargement Left ventricular hypertrophy with repolarization abnormality Abnormal ECG When compared with ECG of 18-MAR-2022 01:53, No significant change was found Confirmed by Juan Manuel Santoro ([id number]) on 03/18/2022 8:50:30 AM Referred By: REFERRED SELF Confirmed By:Juan Manuel Santoro
[2022-03-18 09:04] LABS: Hematocrit (blood only) 32.4 % (40.1-51.0); Hemoglobin 9.7 g/dl (14.0-18.0); Mean Corpuscular Hemoglobin 26.6 pg (25.0-34.0); Mean Corpuscular Hgb Conc 29.9 g/dL (32.0-36.0); Platelet Count 284 K/uL (130-400); RDW Standard Deviation 52.3 fL (36.4-46.3); Red Blood Count 3.64 M/uL (4.63-6.08); White Blood Count 9.71 K/ul (4.8-10.8)
[2022-03-18 09:56] LABS: BUN Creatinine Ratio 14.4 (10-20); Creatinine Clr Calc Pharmacy 41.4 ml/min; Est GFR (African American) 46.8 ml/min; Est GFR (Non-African American) 40.4 ml/min; Magnesium 2.3 mg/dl (1.7-2.4); Potassium 3.8 mmol/L (3.5-5.1)
[2022-03-18 10:03] LABS: Troponin I High Sensitivity 4737.7 pg/ml (0-20)
[2022-03-18 10:16] LABS: Phosphorus 4.1 mg/dl (2.5-4.9)
--- NOTE | 2022-03-18 11:07 | Cardiology Progress Note ---
Date of Service March 18, 2022 Assessment & Plan (1) Acute on chronic heart failure with preserved ejection fraction (HFpEF): (2) Demand ischemia: (3) Severe aortic stenosis: (4) Nonocclusive coronary atherosclerosis of [place] coronary artery: (5) CKD (chronic kidney disease): (6) COVID-19: Plan Patient markedly improved symptomatically after diuresis yesterday. ECGs with no dynamic changes, troponin elevation consistent with his acute hemodynamic/respiratory decompensation initially resulting in demand ischemia in the context of severe aortic stenosis. Given recent cath with nonocclusive coronary disease and lack of ECG changes, the likelihood of a thrombotic event is extremely low, thus full heparinization is not necessary. Once clinically stable, he will need either very close follow-up as an outpatient or possibly remain as an inpatient until such time as he can proceed to TAVR (if appropriate candidate). Will inform Dr. Garland (his primary can reforming machine operator) and will begin making arrangements for TAVR evaluation at [facility] (patient's preference). I will continue to follow along from a cardiac standpoint during his inpatient stay. His positive COVID status may complicate timing of any procedure. Admission and Anticipated Discharge Date Admission Date: March 17, 2022 Subjective Patient is doing much better today, slept reasonably well. No dyspnea at rest, off oxygen and BiPAP. No chest pain. Main somatic complaint is leg stiffness which is longstanding, once he is up and about this improves. Weight down 4 pounds overnight. I/O -1250. Telemetry showed sinus rhythm in the 80 bpm range with some short runs of nonsustained ventricular tachycardia (4 and 5 beats). Physical Exam Physical Exam: Not examined due to COVID restrictions. Appears comfortable. Results & Data ([facility]) Vital Signs (Past 12 Hours) Vital Signs Temp Pulse Pulse Resp BP Pulse Ox O2 Del Method 03/18/22 08:00 Room Air 03/18/22 07:35 98.1 F 85 20 124/62 96 Nasal Cannula 03/18/22 06:06 79 03/18/22 03:04 97.7 F 77 18 119/69 100 Nasal Cannula 03/17/22 23:00 80 O2 Flow Rate 03/18/22 08:00 03/18/22 07:35 2 03/18/22 06:06 03/18/22 03:04 3 03/17/22 23:00 Laboratory Results Normal electrolytes, BUN 23, creatinine 1.6 (down from 1.9). Troponin increased from 75 to 9590, now declining. Diagnostic Findings A multitude of ECGs showed sinus rhythm with left ventricular hypertrophy and repolarization abnormality, no significant roll changer time. PG Care Time/CCT Total # of Minutes Spent Total Time Spent with Patient: Total time spent is greater than 50% in coordination of care (as documented) at patient's floor/unit and/or counseling patient: Coding Level of Care Code 14831 Subseq Hosp Care Lvl 3 Diagnoses Acute on chronic heart failure with preserved ejection fraction (HFpEF) I50.33 Demand ischemia I24.8 Severe aortic stenosis I35.0 Nonocclusive coronary atherosclerosis of [place] coronary artery I25.10 CKD (chronic kidney disease) N18.9 COVID-19 U07.1
--- NOTE | 2022-03-18 13:02 | Hospitalist Progress Note ---
Date of Service March 18, 2022 Assessment & Plan (1) Respiratory failure with hypoxia: Plan: Continue to treat CHF. Oxygen per nasal cannula as needed to maintain s aturation greater than 90%. Serial chest x-ray. He does not appear to have pneumonia from COVID positivity. Continue IV Lasix therapy (2) CHF (congestive heart failure): Plan: Acute on chronic diastolic. Continue IV Lasix diuresis. Monitor intake and output. Cardiology consultation appreciated (3) Heart failure with preserved ejection fraction: Plan: As above (4) Hypertension: Plan: Continue metoprolol, Imdur. (5) Severe aortic stenosis: Plan: The patient will need a TAVR eventually. Cardiology will arrange. (6) Troponin level elevated: Plan: This appears to be a type II AL from demand ischemia. Serial labs . Telemetry. (7) Diabetes mellitus, type 2: Plan: ADA diet. Sliding scale coverage. Lantus. (8) GERD (gastroesophageal reflux disease): Plan: PPI therapy (9) COVID-19: Plan: -Positive on 03/01, still positive on admission. No evidence of viral pneumonia. Supportive care. (10) CAD (coronary artery disease): Plan: Stable. Medical management. Recent heart catheterization revealed noncritical disease (11) CKD (chronic kidney disease): Plan: -Cr slightly increased on admission at 1.9, baseline appears to be around 1.5- 1.7. Monitor intake and output. Serial lab studies. (12) Obstructive sleep apnea syndrome: Plan: HS CPAP ordered . Stable (13) Anemia: Plan: -Hgb is current stable compared to last admission. Serial labs (14) Dyslipidemia: Plan: statin therapy. Low-cholesterol diet Plan Eventual discharge to home Admission and Anticipated Discharge Date Admission Date: March 17, 2022 Subjective Alert and oriented. Asymptomatic at rest. Cardiology entry noted. Troponin is elevated but he had a recent heart catheterization that did not need intervention. This appears to be a type II AL due to demand ischemia. We will continue to monitor troponin levels. He is diuresing nicely with intravenous Lasix. Appreciate cardiology input. OT and PT ordered Review of Systems Review of Systems: Constitutional-no fever or chills ENT-no blurred vision, no double vision, no epistaxis, no sore throat Respiratory-no cough, no wheezing. Shortness of breath on exertion Cardiac-no palpitations, no chest pain, no syncope GI-no nausea, vomiting, diarrhea, melena, hematochezia -no urinary retention, no urinary incontinence, no dysuria, no hematuria Musculoskeletal-no joint pain, no muscle tenderness Skin-no bruising, no rashes, no pruritus Neuro-no isolated weakness, no paresthesia, no weakness Psych-no depression, no anxiety Physical Exam Physical Exam: General-alert and oriented x3, no fevers, no chills HEENT-head atraumatic and normocephalic, pupils equal and reactive to light, extraocular muscles intact Neck-no lymphadenopathy or thyromegaly, trachea midline Chest-bibasilar inspiratory rales. No wheezing Cardiac-regular rate and rhythm, normal S1 and S2, aortic stenosis murmur Abdomen-normal bowel sounds, nontender, no hepatosplenomegaly [id number]+ bilateral pitting edema below the knees Neuro-cranial nerves II through XII intact, motor and sensory function within normal limits, strength symmetrical , no focal deficits Psych-normal affect, normal mood Results & Data Results & Data ([facility]) Vital Signs (Past 12 Hours) Vital Signs Temp Pulse Pulse Resp BP Pulse Ox O2 Del Method 03/18/22 11:38 36.8 C 79 20 104/59 L 92 Room Air 03/18/22 08:00 Room Air 03/18/22 07:35 36.7 C 85 20 124/62 96 Nasal Cannula 03/18/22 06:06 79 03/18/22 03:04 36.5 C 77 18 119/69 100 Nasal Cannula O2 Flow Rate 03/18/22 11:38 03/18/22 08:00 03/18/22 07:35 2 03/18/22 06:06 03/18/22 03:04 3 Laboratory Results 03/18/22 08:44 03/18/22 08:44 PG Care Time/CCT Total # of Minutes Spent Total Time Spent with Patient: Total time spent is greater than 50% in coordination of care (as documented) at patient's floor/unit and/or counseling patient: Coding Level of Care Code 99917 Subseq Hosp Care Lvl 3 Diagnoses Respiratory failure with hypoxia J96.21 Chronicity: acute on chronic CHF (congestive heart failure) I50.9 Heart failure with preserved ejection fraction I50.30 Hypertension I10 Severe aortic stenosis I35.0 Troponin level elevated R77.8 Diabetes mellitus, type 2 E11.9 GERD (gastroesophageal reflux disease) K21.9 COVID-19 U07.1 CAD (coronary artery disease) I25.10 CKD (chronic kidney disease) N18.9 Obstructive sleep apnea syndrome G47.33 Anemia D64.9 Dyslipidemia E78.5 (1) Respiratory failure with hypoxia Chronicity: acute on chronic Qualified Code(s): J96.21 - Acute and chronic respiratory failure with hypoxia
[2022-03-19 07:45] LABS: Hematocrit (blood only) 31.4 % (40.1-51.0); Hemoglobin 9.3 g/dl (14.0-18.0); Mean Corpuscular Hemoglobin 26.7 pg (25.0-34.0); Mean Corpuscular Hgb Conc 29.6 g/dL (32.0-36.0); Mean Corpuscular Volume 90.2 fL (80.0-100.0); Platelet Count 305 K/uL (130-400); RDW Standard Deviation 52.3 fL (36.4-46.3); Red Blood Count 3.48 M/uL (4.63-6.08); White Blood Count 9.97 K/ul (4.8-10.8)
[2022-03-19 08:16] LABS: BUN Creatinine Ratio 15.4 (10-20); Calcium 8.9 mg/dl (8.5-10.1); Creatinine Clr Calc Pharmacy 39.2 ml/min; Est GFR (African American) 43.8 ml/min; Est GFR (Non-African American) 37.8 ml/min; Phosphorus 3.6 mg/dl (2.5-4.9); Potassium 3.5 mmol/L (3.5-5.1)
[2022-03-19] MEDS: INSULIN ASPART PER UNIT SC SCH ×4 (08:19→20:05)
[2022-03-19] MEDS: ASPIRIN 81 MG ECTAB PO SCH ×2 (08:21→21:07)
[2022-03-19] MEDS: PANTOprazole 40 MG TAB PO SCH ×2 (08:21→21:07)
[2022-03-19] MEDS: ROSUVASTATIN CALCIUM 20 MG TAB PO SCH (08:21)
[2022-03-19] MEDS: FUROSEMIDE 40 MG/4 ML VIAL IV SCH (08:21)
[2022-03-19] MEDS: GABAPENTIN 300 MG CAP PO SCH ×2 (08:21→21:07)
[2022-03-19] MEDS: METOPROLOL SUCC 50MG EXT REL TAB PO SCH (08:21)
[2022-03-19] MEDS: UMECLIDINIUM/VILANTEROL 62.5/25MCG 7 PUFFS/INHALER INH SCH (08:22)
[2022-03-19] MEDS: FERROUS SULFATE 325 MG TAB PO SCH (08:22)
[2022-03-19] MEDS: HEPARIN SOD 5,000 UNIT/0.5 ML VIAL SQ SCH ×2 (08:23→21:06)
[2022-03-19] MEDS: FLUTICASONE PROPIONATE NA SPR 16 GM BTL SCH (08:23)
--- NOTE | 2022-03-19 08:38 | Hospitalist Progress Note ---
Date of Service March 19, 2022 Assessment & Plan (1) Respiratory failure with hypoxia: Plan: pt is recovering from acute on chronic heart failure preserved ejection fraction. He does not appear to have pneumonia from COVID positivity. Continue Lasix therapy (2) CHF (congestive heart failure): Plan: Acute on chronic diastolic. convert lasix to po on 03/20 Cardiology consultation appreciated pt with eventual TAVR eval, I personally called Shruthi and he is not even with established appointment as of yet (3) Heart failure with preserved ejection fraction: Plan: As above (4) Hypertension: Plan: Continue metoprolol, Imdur. (5) Severe aortic stenosis: Plan: The patient will need a TAVR eventually. Dr Barnett (6) Troponin level elevated: Plan: This appears to be a type II [place] from demand ischemia. (7) Diabetes mellitus, type 2: Plan: ADA diet. Sliding scale coverage. Lantus. (8) GERD (gastroesophageal reflux disease): Plan: PPI therapy (9) COVID-19: Plan: -Positive on 03/01, still positive on admission. No evidence of viral pneumonia. Supportive care. Pt no longer requires isolation (10) CAD (coronary artery disease): Plan: Stable. Medical management. Recent heart catheterization revealed noncritical disease (11) CKD (chronic kidney disease): Plan: -Cr slightly increased CKD 3 (12) Obstructive sleep apnea syndrome: Plan: HS CPAP ordered . Stable (13) Anemia: Plan: -Hgb is current stable compared to last admission. Serial labs (14) Dyslipidemia: Plan: statin therapy. Low-cholesterol diet Admission and Anticipated Discharge Date Admission Date: March 17, 2022 Subjective pt feels back to his baseline, does describe current issue did occur after waking his dog Review of Systems Review of Systems: resolution of distress and fatigue no headache, no visual changes no speech or swallowing issues no chest pain, pressure or palpitations no shortness of breath, cough or wheezes no abdominal pain, nausea or vomiting, diarrhea or constipation no dysuria, hematuria or frequency no focal joint pain or swelling no back pain, CVA tenderness or radicular pain no bruising, bleeding or rashes no focal signs of weakness or numbness or altered sensation no complaints of anxiety or depression.. Physical Exam Physical Exam: The patient appeared well nourished and normally developed. Vital signs as documented. Head exam is normocephalic atraumatic Neck is without JVD, thyromegaly, or carotid bruits. Lungs are clear to auscultation, no focal loss of breath sounds Cardiac exam, Rhythm is regular.. systolic murmur is heard Abdominal exam reveals normal bowel sounds, soft non tender, no masses Extremities are trace edematous and both pedal pulses are present Neurologic exam is alert and oriented, no focal loss of strength or sensation Skin is without bruises or rashes Psychologically is without concerns for anxiety or depression.. Results & Data Results & Data ([facility]) Vital Signs (Past 12 Hours) Vital Signs Temp Pulse Pulse Resp BP BP Pulse Ox 03/19/22 07:51 03/19/22 07:24 97.9 F 78 22 118/60 92 03/19/22 07:12 74 03/19/22 03:08 98.1 F 75 18 118/60 93 03/18/22 22:56 98.6 F 76 18 121/54 L 89 L 03/18/22 20:38 98.4 F 79 20 139/70 93 O2 Del Method 03/19/22 07:51 Room Air 03/19/22 07:24 Room Air 03/19/22 07:12 03/19/22 03:08 Room Air 03/18/22 22:56 Room Air 03/18/22 20:38 Room Air PG Care Time/CCT Total # of Minutes Spent Total Time Spent with Patient: Total time spent is greater than 50% in coordination of care (as documented) at patient's floor/unit and/or counseling patient: Coding Level of Care Code 70610 Subseq Hosp Care Lvl 2 Diagnoses Respiratory failure with hypoxia J96.21 Chronicity: acute on chronic CHF (congestive heart failure) I50.9 Heart failure with preserved ejection fraction I50.30 Hypertension I10 Severe aortic stenosis I35.0 Troponin level elevated R77.8 Diabetes mellitus, type 2 E11.9 GERD (gastroesophageal reflux disease) K21.9 COVID-19 U07.1 CAD (coronary artery disease) I25.10 CKD (chronic kidney disease) N18.9 Obstructive sleep apnea syndrome G47.33 Anemia D64.9 Dyslipidemia E78.5 (1) Respiratory failure with hypoxia Chronicity: acute on chronic Qualified Code(s): J96.21 - Acute and chronic respiratory failure with hypoxia
[2022-03-19] MEDS: ISOSORBIDE MONO EXTENDED REL 60 MG TABCR PO SCH (09:13)
[2022-03-19] MEDS: LANTUS PER UNIT CHARGE SQ SCH ×2 (09:17→21:06)
--- NOTE | 2022-03-19 10:14 | Cardiology Progress Note ---
Date of Service March 19, 2022 Assessment & Plan (1) Acute on chronic heart failure with preserved ejection fraction (HFpEF): (2) Demand ischemia: (3) Severe aortic stenosis: (4) Nonocclusive coronary atherosclerosis of [place] coronary artery: (5) CKD (chronic kidney disease): (6) COVID-19: Plan Patient comfortable at rest currently. Would continue IV diuretic while he is an inpatient, although markedly improved he still appears mildly hypervolemic. I did speak with Dr. Barnett (interventional cardiology at [facility] in [place]), as noted he will initiate the process for TAVR evaluation as an outpatient. Prior to discharge, would have patient walk short distances to make sure he does not easily become dyspneic. However, when he returns home would strictly restrict activity to a minimum, since it was walking his dog that precipitated the acute decompensation. Also, close attention to his volume status will need to be maintained, sliding scale diuretic with prompt increase for any weight gain. No further chest pain, as noted elevated troponin likely demand ischemia. Fortunately, the patient no longer requires COVID precautions. Admission and Anticipated Discharge Date Admission Date: March 17, 2022 Subjective Patient slept well, comfortable at rest off oxygen currently. No chest pain since admission. Weight down 6 pounds from admission. I/O -2094. Hemodynamics favorable. Telemetry showed sinus rhythm in the 80 bpm range. No further ventricular ectopy. Physical Exam Physical Exam: Appears comfortable. Weight stable overnight, down 6 pounds from admission. BP normotensive. Pulse 78 bpm and regular. Skin: no ecchymoses or generalized lesions. HEENT: unremarkable. Neck: Jugular venous pulse one quarter the way to the angle of the jaw at 90 degrees (improved from admission), carotids with bilateral transmitted murmur. Lungs: Mildly decreased breath sounds with rare crackles, generally clear. Cardiac: regular rhythm, harsh 3/6 crescendo decrescendo systolic ejection murmur heard best in the suprasternal notch and radiating widely, absent aortic closure sound, no diastolic murmur. Abdomen: benign. Extremities: 1+ mildly pitting pretibial edema, limbs warm. Neurologic: normal affect and conversation, nonfocal. Results & Data ([facility]) Vital Signs (Past 12 Hours) Vital Signs Temp Pulse Pulse Resp BP BP Pulse Ox 03/19/22 07:51 03/19/22 07:24 97.9 F 78 22 118/60 92 03/19/22 07:12 74 03/19/22 03:08 98.1 F 75 18 118/60 93 03/18/22 22:56 98.6 F 76 18 121/54 L 89 L O2 Del Method 03/19/22 07:51 Room Air 03/19/22 07:24 Room Air 03/19/22 07:12 03/19/22 03:08 Room Air 03/18/22 22:56 Room Air Laboratory Results Normal electrolytes, BUN 26, creatinine 1.69 (stable) PG Care Time/CCT Total # of Minutes Spent Total Time Spent with Patient: Total time spent is greater than 50% in coordination of care (as documented) at patient's floor/unit and/or counseling patient: Coding Level of Care Code 74675 Subseq Hosp Care Lvl 3 Diagnoses Acute on chronic heart failure with preserved ejection fraction (HFpEF) I50.33 Demand ischemia I24.8 Severe aortic stenosis I35.0 Nonocclusive coronary atherosclerosis of [place] coronary artery I25.10 CKD (chronic kidney disease) N18.9 COVID-19 U07.1
[2022-03-19] MEDS ORDERED: Nursing to Pharmacy Communication SCH (16:30)
[2022-03-19] MEDS ORDERED: FUROSEMIDE 40 MG/4 ML VIAL IV SCH (17:00)
[2022-03-20 07:03] LABS: Hematocrit (blood only) 32.5 % (40.1-51.0); Hemoglobin 9.8 g/dl (14.0-18.0); Mean Corpuscular Hemoglobin 26.6 pg (25.0-34.0); Mean Corpuscular Hgb Conc 30.2 g/dL (32.0-36.0); Mean Corpuscular Volume 88.3 fL (80.0-100.0); Mean Platelet Volume 10.1 fL (9.4-12.4); Platelet Count 323 K/uL (130-400); RDW Coefficient of Variation 15.9 % (11.5-14.5); RDW Standard Deviation 51.3 fL (36.4-46.3); Red Blood Count 3.68 M/uL (4.63-6.08); White Blood Count 9.66 K/ul (4.8-10.8)
[2022-03-20 07:39] LABS: BUN Creatinine Ratio 17.2 (10-20); Creatinine Clr Calc Pharmacy 34.1 ml/min; Est GFR (African American) 37.5 ml/min; Est GFR (Non-African American) 32.4 ml/min; Potassium 3.5 mmol/L (3.5-5.1)
[2022-03-20] MEDS: ASPIRIN 81 MG ECTAB PO SCH (07:54)
[2022-03-20] MEDS: PANTOprazole 40 MG TAB PO SCH (07:54)
[2022-03-20] MEDS: UMECLIDINIUM/VILANTEROL 62.5/25MCG 7 PUFFS/INHALER INH SCH (07:54)
[2022-03-20] MEDS: ROSUVASTATIN CALCIUM 20 MG TAB PO SCH (07:54)
[2022-03-20] MEDS: METOPROLOL SUCC 50MG EXT REL TAB PO SCH (07:54)
[2022-03-20] MEDS: ISOSORBIDE MONO EXTENDED REL 60 MG TABCR PO SCH (07:54)
[2022-03-20] MEDS: HEPARIN SOD 5,000 UNIT/0.5 ML VIAL SQ SCH (07:55)
[2022-03-20] MEDS: FLUTICASONE PROPIONATE NA SPR 16 GM BTL SCH (07:55)
[2022-03-20] MEDS: GABAPENTIN 300 MG CAP PO SCH (07:55)
[2022-03-20] MEDS: INSULIN ASPART PER UNIT SC SCH (07:59)
[2022-03-20] MEDS: LANTUS PER UNIT CHARGE SQ SCH (07:59)
[2022-03-20] MEDS ORDERED: FUROSEMIDE 40 MG TAB PO SCH (09:00)
[2022-03-20 09:05] VITALS: BP 110/52; PULSE 79; TEMP 97.9; O2SAT 94
--- NOTE | 2022-03-20 11:03 | Cardiology Progress Note ---
Date of Service March 20, 2022 Assessment & Plan (1) Acute on chronic heart failure with preserved ejection fraction (HFpEF): (2) Severe aortic stenosis: (3) Demand ischemia: (4) Nonocclusive coronary atherosclerosis of [place] coronary artery: (5) CKD (chronic kidney disease): Plan Patient comfortable at rest currently. Would discharge on furosemide 40 mg daily to be taken as long as he is at his current weight. If he gains 2 pounds or more he should temporarily increase the dose to 80 mg on that day. He should strictly refrain from more than minimal activity until he likely undergoes TAVR in the near future. I discussed at length strict salt/sodium restriction and the concept of weight- based sliding scale diuretic with the patient. As noted, I spoke with Dr. Barnett (interventional cardiology at [facility] in [place]), he will contact the patient (likely early next week) and arrange for prompt TAVR evaluation as an outpatient. Along with Dr. Garland, we will ensure that this process moves along promptly. Cardiology follow-up locally with Dr Garland, ideally next week. Admission and Anticipated Discharge Date Admission Date: March 17, 2022 Subjective Patient slept well and feels well currently. No dyspnea at rest off oxygen. Walk short distances to bathroom without difficulty. No chest pain since admission. Weight down 5 pounds. I/O -1101. Telemetry showed sinus rhythm in the 70s. No significant ventricular ectopy or dysrhythmia over the past 48 hours. Physical Exam Physical Exam: Appears comfortable. Weight down 5 pounds overnight (?accuracy) BP normotensive. Pulse 78 bpm and regular. Skin: no ecchymoses or generalized lesions. HEENT: unremarkable. Neck: Jugular venous pulse at the clavicle at 90 degrees (improved from admission), carotids with bilateral transmitted murmur. Lungs: Mildly decreased breath sounds, generally clear. Cardiac: regular rhythm, harsh 3/6 crescendo decrescendo systolic ejection murmur heard best in the suprasternal notch and radiating widely, absent aortic closure sound, no diastolic murmur. Abdomen: benign. Extremities: Trace pretibial edema, limbs warm. Neurologic: normal affect and conversation, nonfocal. Results & Data ([facility]) Vital Signs (Past 12 Hours) Vital Signs Temp Pulse Pulse Resp BP BP Pulse Ox 03/20/22 10:43 97.9 F 79 24 110/52 L 94 03/20/22 08:02 97.9 F 79 24 110/52 L 94 03/20/22 02:50 98.2 F 77 18 111/67 93 03/19/22 23:43 98.2 F 73 18 121/64 93 O2 Del Method 03/20/22 10:43 03/20/22 08:02 Room Air 03/20/22 02:50 Room Air 03/19/22 23:43 Room Air Laboratory Results Normal electrolytes, BUN 33, creatinine 1.92 (up from 1.69) PG Care Time/CCT Total # of Minutes Spent Total Time Spent with Patient: Total time spent is greater than 50% in coordination of care (as documented) at patient's floor/unit and/or counseling patient: Coding Level of Care Code 20169 Subseq Hosp Care Lvl 3 Diagnoses Acute on chronic heart failure with preserved ejection fraction (HFpEF) I50.33 Severe aortic stenosis I35.0 Demand ischemia I24.8 Nonocclusive coronary atherosclerosis of [place] coronary artery I25.10 CKD (chronic kidney disease) N18.9
--- NOTE | 2022-03-20 18:03 | Discharge Summary ---
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 ED on 03/17/22 with complaints of SOB and chest discomfort. Per chart review, the patient has multiple admissions recently for CHF exacerbation due to poor diet compliance and volume overload due to his severe aortic stenosis. The patient was recently seen in Cardiology clinic on 03/10/22 for post admission follow-up where he still reported chest discomfort and significant dyspnea on exertion. The patient recently decided he would like to undergo the TAVR procedure and his Analytical Technician (Dr. Garland) was working on coordinating with Doc for the procedure. Per the ER report, the patient was dante in by EMS who initially found him to be hypoxic in the 50's and respirations in the 50's. He was placed on Bipap on arrival to the ED and remained stable. He was found to have an elevated troponin of 75 and BNP of 1020. The patient was given 40 mg IV lasix. The ED touched base with [facility] who will not have open beds for at least 48 hours so he was admitted to our service for stabilization. At the time of the exam the patient was sitting comfortably in bed with Bipap in place and in no acute distress. When asked about his recent salt intake the patient stated that he was making and eating pork sausage recently. He has been having progressive SOB and chest discomfort over the past few days. His has been up at the [facility] so he has been home alone. He states that since starting the Bipap his breathing is improved and his chest discomfort has resolved. He denies recent fevers, chills, headache, changes in vision, hearing, taste, and smell, abdominal pain. Principal Diagnosis acute on chronic diastolic heart failure acute respiratory failure resolved severe aortic stenosis Discharge Exam The patient appeared stable Vital signs as documented. Lungs are clear to auscultation and appear unlabored heart failure seems to be resolved Cardiac exam, Rhythm is regular. Still systolic murmur consistent with aortic stenosis Abdominal exam reveals normal bowel sounds, soft non tender, no masses Extremities are trace edematous and both extremities have some chronic swelling changes Neurologic exam is alert and oriented, no focal loss of strength or sensation Discharge Data Allergies Allergy/AdvReac Type Severity Reaction Status Date / Time sulfamethoxazole Allergy Hives Verified 03/10/22 15:29 [From Bactrim] trimethoprim [From Bactrim] Allergy Hives Verified 03/10/22 15:29 Consultations 03/17/22 13:03 ED Decision to Admit Stat 03/17/22 14:58 Consult Cardiology Routine Hospital Course (1) Respiratory failure with hypoxia: pt is recovering from acute on chronic heart failure preserved ejection fraction. He does not appear to have pneumonia from COVID positivity. Continue Lasix therapy (2) CHF (congestive heart failure): Acute on chronic diastolic. convert lasix to po on 03/20 Cardiology consultation appreciated pt with eventual TAVR eval, I personally called Shruthi and he is not even with established appointment as of yet (3) Heart failure with preserved ejection fraction: As above (4) Hypertension: Continue metoprolol, Imdur. (5) Severe aortic stenosis: The patient will need a TAVR eventually. Dr Barnett (6) Troponin level elevated: This appears to be a type II MS from demand ischemia. (7) Diabetes mellitus, type 2: ADA diet. Resume home diabetic regiment of 75/25 insulin + empagliflozin and dulaglutide (8) GERD (gastroesophageal reflux disease): PPI therapy (9) COVID-19: -Positive on 03/01, still positive on admission. No evidence of viral pneumonia. Supportive care. Pt no longer requires isolation (10) CAD (coronary artery disease): Stable. Medical management. Recent heart catheterization revealed noncritical disease (11) CKD (chronic kidney disease): -Cr slightly increased CKD 3 (12) Obstructive sleep apnea syndrome: HS CPAP ordered . Stable (13) Anemia: -Hgb is current stable compared to last admission. Serial labs (14) Dyslipidemia: statin therapy. Low-cholesterol diet Total Time Total Time Spent Total Time Spent (In Minutes): It required greater than 30 minutes to prepare this patient for discharge Discharge Plan Discharge Items Patient Disposition: Home - Self-Care Reason For Visit: CHF EXACERBATION Discharge Diagnosis: Heart failure preserved Ejection fraction severe aortic stenosis chronic kidney disease Activity: Per Instructions section Activity Comment: no intentional exercise Non-emergency contact: Primary Care Provider Call non-emergency contact if: your symptoms worsen and you have a fever Follow-up/Referrals: Mili Barnes MD [Primary Care Provider] - Diet: Carb Consistent or DM2 and Low Sodium (2gm) Addtl Attending Provider Instructions: Expect a call from Dr Anibal Hawkins, in the upcoming days to coordinate an appointment for your valve replacement, They will try to have your come in next week. Call 911 and go to the Emergency Room if: * You have tightness or pain in your chest that does not go away with rest or Nitroglycerin * You are very short of breath even with rest Call your doctor if any of the following symptoms or problems start or get worse: * Shortness of breath or difficulty breathing * Wake up at night short of breath * Chest pain * Cough * Swelling of your hands, fee, or legs * More fatigued or tired with your normal activity * Palpitations - sudden fast heart beats WEIGHT * Weigh yourself every morning after using the bathroom. * Use the same scale. * Wear the same amount of clothing. * Write your weight down on your chart. * Call your doctor if you gain more than 2-3 pounds in 1-2 days. if your weight goes uop this amount take a double dose of lasix(furosemide) and call the heart doctor MEDICATIONS * Use this discharge instruction sheet for instructions. * Take your medications at the time your doctor ordered. * Do not skip a dose of your medicines. * If you miss a dose of medicine, take as soon as possible, but DO NOT DOUBLE A DOSE. * Read your medicine information when you get home. * Know all of the side effects of your medicine. * Call your doctor's office if you have any side effects. * Be sure all of your doctors know what medicine and herbs you take (including cold, flu, and herbal medicine). * Pain Medicine: If you do not get relief from your pain, please call your doctor for help. Take the following with you to your follow-up doctor appointments: * Weight Chart * Medication List * List of questions Do not drink excessive alcohol, beer or wine. Pending Studies at Discharge: No Stand-Alone Forms: My [employer], Smoking Cessation Medications and DC Order Prescriptions: Continued (DME) Flutter Valve Device See Rx Instructions .MEDSUPPLY Qty: 1 0RF Rx Instructions: Use it every 6 hours when awake. fluticasone propionate [Allergy Relief (fluticasone)] 50 mcg/actuation spray,suspension 1 spray intranasal DAILY Qty: 9.9 3RF Rx Instructions: administer into each nostril once daily Anoro Ellipta 62.5-25 mcg/actuation blister with device 1 inh inhalation DAILY Qty: 60 3RF guaifenesin [Mucinex] 1,200 mg tablet extended release 12hr 1,200 mg PO BID (DME) CPAP Machine Misc See Rx Instructions .ROUTE .MEDSUPPLY Qty: 1 0RF Rx Instructions: AUTO CPAP MIN 6 MAX 16. HEATED HUMIDITY. FULL FACE MASK OF CHOICE. CPAP SUPPLIES. MICHAEL 99. CARE PLUS O2 (DME) Aeroneb Go Nebulizer Misc See Rx Instructions .MEDSUPPLY Qty: 1 0RF Rx Instructions: With tubing and supplies. J44.9. J45.9. (DME) CPAP Supplies Misc See Rx Instructions .MEDSUPPLY Qty: 1 0RF Rx Instructions: Mask refitting. G47.33 rosuvastatin 40 mg tablet 40 mg PO DAILY Qty: 90 3RF Trulicity 0.75 mg/0.5 mL pen injector 0.75 mg subcut .weekly Rx Instructions: TAKE THIS MED EVERY WEDNESDAY metoprolol succinate 100 mg tablet extended release 24 hr 100 mg PO DAILY Qty: 90 3RF empagliflozin 10 mg tablet 10 mg PO DAILY Qty: 90 0RF gabapentin 300 mg capsule 300 mg PO BID Qty: 180 1RF Humalog Mix 75-25(U-100)Insuln 100 unit/mL (75-25) suspension 50 unit SUBCUT QPM Humalog Mix 75-25(U-100)Insuln 100 unit/mL (75-25) suspension 75 unit SUBCUT QAM ipratropium-albuterol 0.5 mg-3 mg(2.5 mg base)/3 mL solution for nebulization 3 ml inhalation Q8H PRN (Reason: shortness of breath or wheezing) Qty: 270 3RF potassium chloride 10 mEq capsule, extended release 20 meq PO .COMPLEX Rx Instructions: 20 mEq PO Every other day; multivitamin Tablet 1 tab PO QAM aspirin 81 mg Tablet,Delayed Release (Dr/Ec) 81 mg PO BID isosorbide mononitrate 60 mg tablet extended release 24 hr 60 mg PO DAILY pantoprazole 40 mg Tablet,Delayed Release (Dr/Ec) 40 mg PO BID Qty: 60 2RF furosemide 40 mg tablet 40 mg PO DAILY Qty: 30 0RF ferrous sulfate 324 mg (65 mg iron) tablet,delayed release (DR/EC) 324 mg PO Q OTHER DAY Qty: 30 0RF Discharge Orders: Discharge Order (Routine); Ordered 03/20/22 Ordered By: Arjun Lara Admission Data Admit Date/Time: 03/17/22 13:14 Attending Provider: Arjun Lara Admit Provider: Robby Linares Primary Care Provider: Mili Barnes Other Providers: Robby Linares ; Juan Manuel Santoro ; [facility] Other Interventions: Discharge Summary Assessment (RN) Last Done: 03/20/22 10:43 Coding Level of Care Code D/C DAY MANAGEMENT >30 MINS Diagnoses Respiratory failure with hypoxia J96.21 Chronicity: acute on chronic CHF (congestive heart failure) I50.9 Heart failure with preserved ejection fraction I50.30 Hypertension I10 Severe aortic stenosis I35.0 Troponin level elevated R77.8 Diabetes mellitus, type 2 E11.9 GERD (gastroesophageal reflux disease) K21.9 COVID-19 U07.1 CAD (coronary artery disease) I25.10 CKD (chronic kidney disease) N18.9 Obstructive sleep apnea syndrome G47.33 Anemia D64.9 Dyslipidemia E78.5
== END 2022-03-20 12:22 | disposition home health service (06) | DRG 280 ==
LOC: ED 11:16 → 2S 13:14 → SUATTDRO 13:14 → 2S 14:33
DX: Z88.2 Allergy status to sulfonamides; U07.1 COVID-19; I21.A1 Myocardial infarction type 2; Z88.6 Allergy status to analgesic agent; N18.9 Chronic kidney disease, unspecified; I13.0 Hypertensive heart and chronic kidney disease with heart failure and stage 1 through stage 4 chronic kidney disease, or unspecified chronic kidney disease; Z79.4 Long term (current) use of insulin; Z85.118 Personal history of other malignant neoplasm of bronchus and lung; K21.9 Gastro-esophageal reflux disease without esophagitis; D64.9 Anemia, unspecified; Z79.82 Long term (current) use of aspirin; I47.2 Ventricular tachycardia; I25.10 Atherosclerotic heart disease of native coronary artery without angina pectoris; Z87.891 Personal history of nicotine dependence; I50.33 Acute on chronic diastolic (congestive) heart failure; J96.01 Acute respiratory failure with hypoxia; Z90.2 Acquired absence of lung [part of]; E11.22 Type 2 diabetes mellitus with diabetic chronic kidney disease; I35.0 Nonrheumatic aortic (valve) stenosis

== ENCOUNTER 2022-04-23 11:06 | Inpatient (IN) ==
[2022-04-23] MEDS ORDERED: FUROSEMIDE 40 MG/4 ML VIAL IV ONE (11:12)
--- NOTE | 2022-04-23 11:21 | Emergency Department Note ---
Impression & Plan Pulmonary edema, Acute respiratory acidosis, Respiratory failure, DEBORA (acute kidney injury), Elevated troponin I level ED Provider Note NAME: RENETTA DEL CASTILLO AGE: 81 SEX: M : 1940 ARRIVES VIA: Ambulance INFORMANT: Patient, EMS ED PROVIDER(S): Adriano Trujillo DO CHIEF COMPLAINT: Shortness of breath HPI: The patient is a 81-year-old male who presented to the emergency department for shortness of breath. I did receive a prehospital notification about the patient. The patient was having shortness of breath and started doing a nebulizer treatment at home. He called 911. Upon arrival paramedics found the patient to have oxygen saturations in the 60s. The patient has a history of an aortic valve which is in need of replacement. The patient was placed on BiPAP. He was given aspirin and nitroglycerin prior to arrival. He was found to have an elevated blood pressure. Symptoms have significantly improved since onset this morning. He states over the last few days he has been feeling ill. He has been having some shortness of breath with exertion. He denies have any chest pain. He does complain of some swelling in his lower extremities. The patient did not take his Lasix dose this morning. He denies having any fever or hemoptysis. ROS: See above HPI for pertinent positives & negatives. A total of 10 systems reviewed and were otherwise negative. PAST MEDICAL HISTORY: See Below PAST SURGICAL HISTORY: See Below FAMILY HISTORY: See Below SOCIAL HISTORY: See Below HOME MEDICATIONS: See Below ALLERGIES: See Below VITALS: See Below PHYSICAL EXAMINATION: GENERAL: The patient is awake and alert. The patient is somewhat anxious appearing. EYES: The conjunctivae are clear. The pupils are round and reactive. EARS, NOSE, MOUTH AND THROAT: The nose is without any evidence of any deformity. NECK: The neck is nontender and supple. RESPIRATORY: Normal respiratory effort is noted there is no evidence of wheezing rhonchi or rales CARDIOVASCULAR: Tachycardic and regular heart sounds were noted auscultation. There is no definite murmur. GASTROINTESTINAL: The abdomen is soft. Abdomen is nontender. MUSCULOSKELETAL/EXTREMITIES: There is no evidence of gross deformity full range of motion is noted in the hips and shoulders. SKIN: Skin was warm and dry. Pedal edema was noted bilaterally. NEUROLOGIC: Patient is awake alert and oriented x3 MEDICAL DECISION MAKING: The patient is a 81-year-old male who presented to the emergency department for an evaluation of shortness of breath. The patient arrived via ALS. He was found to be in pulmonary edema and was placed on BiPAP. Patient was continued on BiPAP with oxygen supplementation. He was treated with IV Lasix in the emergency department. I discussed patient's laboratory and radiographic studies with him. I also discussed this case with the on-call [facility] hospitalist group. They have agreed to evaluate the patient in the emergency department for further management and disposition. The patient was treated with medication for anxiety to help him tolerate the BiPAP. Triage Nursing notes reviewed. Prior medical records reviewed Vital Signs: reviewed and remarkable for relative hypoxia and hypotension. Differential diagnosis: Reactive airway disease, pneumonia, pneumothorax, COPD, CHF, infections, cardiac ischemia, pulmonary embolism, musculoskeletal, gastrointestinal, as well as other pathologies. ER treatment provided: See below Diagnostics interpreted by me: ECG: EKG was obtained in the emergency department. My interpretation is sinus tachycardia 114 bpm. LVH was noted by voltage criteria. Inferior and lateral ST depressions with T wave abnormalities were noted. This was compared to a tracing from March 18, 2022. No changes were noted. Prehospital EKG was also evaluated. My interpretation is sinus tachycardia 110 bpm. There is no ectopy. Similar ST and T wave abnormalities were noted with LVH. Cardiac Monitoring: An order was placed for continuous cardiac monitoring. The monitor shows a rate of 71 bpm with sinus rhythm. Laboratory studies: As stated above and show below. Imaging studies: See below Consultation(s): I discussed this case with Andie who was para professional for the [place] hospitalist team ED COURSE: Procedures: none Critical Care: I have personally spent greater than 45 minutes of critical care time in the direct management of this patient. This includes bedside care, interpretation of diagnostic studies, and testing, discussion with consultants, patient, and family members, and other required patient management activities. This 45 minutes is in excess of all separately billable procedures. Past Med/Surg History Medical History Anemia CAD (coronary artery disease) NON-OBSTRUCTIVE Cholelithiasis CKD (chronic kidney disease) baseline creatinine 1.6 Diabetes Diabetes mellitus, type 2 IDDM, +B/L FEET NEUROPATHY Dyspnea on exertion Gastro-esophageal reflux GERD (gastroesophageal reflux disease) Hearing deficit wears hearing aids Heart failure with preserved ejection fraction Hiatal hernia High cholesterol Hyperlipidemia Hypertension Hypertension Impacted cerumen of left ear Lip ulcer Lung cancer Discharge summary dated 04/06/[address] Mari: HOSPITAL COURSE: This is a very nice 77-year-old male who was found to have a mass. It certainly appeared to be a carcinoma in the left upper lobe. We worked him up and felt he would be a candidate for a resection. Upon opening the lung, getting into the patient's chest with our robotic thoracoscopic resection on 03/30/2018, I was quite pleased. We took down the fissure quite nicely, took down all of the arterial branches but one and had the vein isolated as well as the bronchus and the patient had a tear of this remaining artery. We controlled this, we had to open the chest. We eventually got control and I repaired this primarily. The patient was extubated later that day. We had a significant blood loss. The patient was transfused. He also had a creatinine of 1.71 preop. This went as high as 3 in the subsequent days, but then came back down. He looked very good the day after surgery. He was requiring no oxygen and was eating a regular diet. We had some drainage from the chest tubes. We kept it in for a few days. There was no evidence of bleeding. Frankly I was quite pleased with him. He was ambulating in the hallway. He was moving his bowels, although he required some cathartics. Hemoglobin settled down in the low 8. We left it there after used 4 units total of blood. Creatinine came back down. He was making excellent urine. Creatinine was 2.51 the day before discharge. His incisions were all clean. We removed his chest tube after he had a small pneumothorax, a small amount of fluid and on 04/05/2018, I performed an aspiration of this and his pneumothorax had resolved. I was quite happy with this. The following day, I did not really see much of pneumothorax. He had a bit more fluid, but he was on room air, ambulating and I think it is best for him to go home. 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 I told her to call me directly should there be any issues. Quite frankly, I was quite pleased with him. His incisions were clean. He had very little in the way of pain. We did send him home on tramadol and told to resume his regular medications. I will see him back in the office next week. 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 Robotic L VATS converted to open procedure. Glidescope assisted PERFECTO insertion. During surgery there was significant bleeding from the pulmonary artery which forced a change to an open thoracotomy and was difficult to control. Fluids were given followed by blood and between the blood loss and manipulation in the chest there were some brief times when the eros was showing very little pulse. His CO2 tracing dropped but never went to nothing. Along with the fluids he did receive 0.5mg epi and 2 units of vasopressin in addition to occasional small doses of ephedrine and phenylephrine. Blood loss was controlled and his vitals stabilized for the rest of the case. At the end of the procedure, we changed to a single lumen ETT and Dr Mari did a bronchoscopy which showed a little blood in the bronchi but basically clear. He is making urine, his vitals are stable, we are leaving him on the ventilator for the mean time to allow him to wake and make sure he is not acidotic. Labs and chest film are being done now - report to ICU MD. Surgical History History of cardiac cath [id number] STENTS [facility] 2021 no stents [facility] History of cholecystectomy 11/22/2014. DL x2. Glidescope #3 by ELIANA and 7.5 ETT inserted. Grade 3 view. History of colonoscopy History of lobectomy of lung left upper lobe 03/30/2018 [facility] S/P lobectomy of lung Family History Father Cardiac disorder Other No family history of bleeding disorder Social History Smoking Status: Former smoker Tobacco Type: Smokeless Tobacco (Dip or Chew) Second Hand Exposure: No; Hx Alcohol Use: No Hx Substance Use: No Preferred Language: Moldovan Communication Ability: Effective Visual Impairment: No Limitations Mask Former Required: No Beliefs That Will Affect Care: None marital status: Current Living Situation: Spouse current occupational status: retired How many Children do You have: 1 Other Information That Helps Us Care for You: No Feels Safe at Home: Yes Safety Concerns: Feels Safe At This Time Dental Care, Regularly: Yes Seatbelt Use: always Sunscreen Use: No Assistive Devices: None Allergies Allergies Allergy/AdvReac Type Severity Reaction Status Date / Time sulfamethoxazole Allergy Hives Verified 04/16/22 14:25 [From Bactrim] trimethoprim [From Bactrim] Allergy Hives Verified 04/16/22 14:25 Home Meds Home Medications Medication Instructions Recorded Confirmed aspirin 81 mg tablet,delayed 81 mg PO BID 04/25/18 04/16/22 release multivitamin 1 tab PO QAM 04/25/18 04/16/22 guaifenesin 1,200 mg tablet, 1,200 mg PO BID 04/27/19 04/16/22 extended release 12 hr (Mucinex) isosorbide mononitrate 60 mg 60 mg PO DAILY 11/08/21 04/16/22 tablet,extended release 24 hr potassium chloride 10 mEq 20 meq PO .COMPLEX 01/14/22 04/16/22 capsule,extended release insulin lispro protamine-lispro 50 unit subcut QPM 03/10/22 04/16/22 100 unit/mL (75-25) subcutaneous susp (Humalog Mix 75-25(U-100)Insuln) insulin lispro protamine-lispro 75 unit subcut QAM 03/10/22 04/16/22 100 unit/mL (75-25) subcutaneous susp (Humalog Mix 75-25(U-100)Insuln) Previous Rx's Medication Instructions Recorded CPAP Machine #1 ea 07/17/19 CPAP Supplies #1 ea 05/23/20 nebulizers (Aeroneb Go Nebulizer) #1 ea 05/23/20 Flutter Valve #1 ea 05/24/20 ipratropium 0.5 mg-albuterol 3 mg 3 ml inhalation Q8H PRN shortness 11/25/20 (2.5 mg base)/3 mL nebulization of breath or wheezing #270 mL soln fluticasone propionate 50 1 spray intranasal DAILY #9.9 grams 03/24/21 mcg/actuation nasal spray,suspension (Allergy Relief (fluticasone)) umeclidinium 62.5 mcg-vilanterol 1 inh inhalation DAILY #60 ea 11/13/21 25 mcg/actuation powdr for inhalation (Anoro Ellipta) ferrous sulfate 324 mg (65 mg 324 mg PO Q OTHER DAY #30 tabs 03/06/22 iron) tablet,delayed release furosemide 40 mg tablet 40 mg PO DAILY #30 tabs 03/06/22 empagliflozin 10 mg tablet 10 mg PO DAILY #90 tabs 03/10/22 gabapentin 300 mg capsule 300 mg PO BID #180 caps 03/10/22 metoprolol succinate 100 mg 100 mg PO DAILY #90 tabs 03/10/22 tablet,extended release 24 hr rosuvastatin 40 mg tablet 40 mg PO DAILY #90 tabs 03/10/22 dulaglutide 0.75 mg/0.5 mL 0.75 mg (0.5 mL) subcut .weekly #6 03/31/22 subcutaneous pen injector mL (Trulicity) pantoprazole 40 mg tablet,delayed 40 mg PO BID #60 tabs 04/08/22 release Results & Data (ED) Vital Signs Vital Signs - 24 hr 04/23/22 11:14 04/23/22 11:14 04/23/22 11:14 Temperature Temperature Source Pulse Rate 117 H 121 H Pulse Rate [Apical] Pulse Rate from SpO2 Sensor Respiratory Rate 29 H 20 Respiratory Effort / Characteristics Labored Respiratory Depth Deep Respiratory Pattern Regular Blood Pressure 193/136 H Blood Pressure [Right Arm] Blood Pressure Mean 155 Blood Pressure Mean [Right Arm] Blood Pressure Position Lying Pulse Oximetry 95 95 95 Oxygen Delivery Method BiPAP BiPAP BiPAP Fraction of Inspired Oxygen Sepsis Recent Fever Within 48 Hours No Sepsis New/Unexplained Change in Mental Status No Sepsis Action Taken by Nursing Physician Notified 04/23/22 11:15 04/23/22 11:30 04/23/22 11:36 Temperature 36.3 C L Temperature Source Axillary Pulse Rate 115 H Pulse Rate [Apical] 122 H Pulse Rate from SpO2 Sensor Respiratory Rate 28 H 32 H Respiratory Effort / Characteristics Spontaneous Accessory Muscle Use Labored Short of Breath Non-Labored Respiratory Depth Normal Normal Respiratory Pattern Tachypnea Blood Pressure Blood Pressure [Right Arm] 173/106 H Blood Pressure Mean Blood Pressure Mean [Right Arm] 128 Blood Pressure Position Pulse Oximetry 99 86 L Oxygen Delivery Method BiPAP Fraction of Inspired Oxygen 40 Sepsis Recent Fever Within 48 Hours Sepsis New/Unexplained Change in Mental Status Sepsis Action Taken by Nursing 04/23/22 11:19 04/23/22 11:30 04/23/22 11:45 Temperature Temperature Source Pulse Rate 117 H 122 H Pulse Rate [Apical] 122 H Pulse Rate from SpO2 Sensor 117 H 122 H Respiratory Rate 31 H 32 H 30 H Respiratory Effort / Characteristics Accessory Muscle Use Labored Respiratory Depth Deep Respiratory Pattern Tachypnea Blood Pressure Blood Pressure [Right Arm] Blood Pressure Mean Blood Pressure Mean [Right Arm] Blood Pressure Position Pulse Oximetry 96 86 L 100 Oxygen Delivery Method BiPAP BiPAP BiPAP Fraction of Inspired Oxygen Sepsis Recent Fever Within 48 Hours Sepsis New/Unexplained Change in Mental Status Sepsis Action Taken by Nursing 04/23/22 12:00 04/23/22 12:12 04/23/22 11:58 Temperature Temperature Source Pulse Rate Pulse Rate [Apical] 114 H 104 H Pulse Rate from SpO2 Sensor Respiratory Rate 26 H 23 Respiratory Effort / Characteristics Labored Non-Labored Respiratory Depth Deep Normal Respiratory Pattern Blood Pressure 154/88 H Blood Pressure [Right Arm] 167/84 H 167/84 H Blood Pressure Mean 110 Blood Pressure Mean [Right Arm] 111 111 Blood Pressure Position Pulse Oximetry 96 98 Oxygen Delivery Method BiPAP BiPAP Fraction of Inspired Oxygen Sepsis Recent Fever Within 48 Hours Sepsis New/Unexplained Change in Mental Status Sepsis Action Taken by Nursing 04/23/22 11:58 04/23/22 12:00 04/23/22 12:01 Temperature Temperature Source Pulse Rate 116 H 114 H Pulse Rate [Apical] Pulse Rate from SpO2 Sensor 116 H 114 H Respiratory Rate 16 28 H Respiratory Effort / Characteristics Respiratory Depth Respiratory Pattern Blood Pressure 167/84 H Blood Pressure [Right Arm] Blood Pressure Mean 111 Blood Pressure Mean [Right Arm] Blood Pressure Position Pulse Oximetry 95 96 Oxygen Delivery Method Fraction of Inspired Oxygen Sepsis Recent Fever Within 48 Hours Sepsis New/Unexplained Change in Mental Status Sepsis Action Taken by Nursing 04/23/22 12:01 04/23/22 12:16 04/23/22 12:16 Temperature Temperature Source Pulse Rate 113 H 102 H Pulse Rate [Apical] Pulse Rate from SpO2 Sensor 114 H 102 H Respiratory Rate 26 H 21 Respiratory Effort / Characteristics Respiratory Depth Respiratory Pattern Blood Pressure 130/61 Blood Pressure [Right Arm] Blood Pressure Mean 84 Blood Pressure Mean [Right Arm] Blood Pressure Position Pulse Oximetry 96 98 Oxygen Delivery Method Fraction of Inspired Oxygen Sepsis Recent Fever Within 48 Hours Sepsis New/Unexplained Change in Mental Status Sepsis Action Taken by Nursing 04/23/22 12:30 04/23/22 12:30 04/23/22 12:45 Temperature Temperature Source Pulse Rate 93 H 89 Pulse Rate [Apical] Pulse Rate from SpO2 Sensor 93 H 89 Respiratory Rate 20 19 Respiratory Effort / Characteristics Respiratory Depth Respiratory Pattern Blood Pressure 94/60 L Blood Pressure [Right Arm] Blood Pressure Mean 71 Blood Pressure Mean [Right Arm] Blood Pressure Position Pulse Oximetry 99 99 Oxygen Delivery Method Fraction of Inspired Oxygen Sepsis Recent Fever Within 48 Hours Sepsis New/Unexplained Change in Mental Status Sepsis Action Taken by Nursing 04/23/22 12:45 Temperature Temperature Source Pulse Rate Pulse Rate [Apical] Pulse Rate from SpO2 Sensor Respiratory Rate Respiratory Effort / Characteristics Respiratory Depth Respiratory Pattern Blood Pressure 94/47 L Blood Pressure [Right Arm] Blood Pressure Mean 62 Blood Pressure Mean [Right Arm] Blood Pressure Position Pulse Oximetry Oxygen Delivery Method Fraction of Inspired Oxygen Sepsis Recent Fever Within 48 Hours Sepsis New/Unexplained Change in Mental Status Sepsis Action Taken by Assisted Medications Current Medication List: was personally reviewed by me Laboratory Data Attestation: I reviewed the patient's lab results. Result diagrams: 04/23/22 11:54 04/23/22 11:54 Lab Results 04/23/22 04/23/22 04/23/22 Range/Units 11:08 11:39 11:41 WBC (4.8-10.8) K/ul RBC (4.63-6.08) M/uL Hgb (14.0-18.0) g/dl Hct (40.1-51.0) % MCV (80.0-100.0) fL MCH (25.0-34.0) pg MCHC (32.0-36.0) g/dL RDW Std Deviation (36.4-46.3) fL RDW Coeff of Mac (11.5-14.5) % Plt Count (130-400) K/uL MPV (9.4-12.4) fL Immature Gran % (Auto) % Neut % (Auto) % Lymph % (Auto) % [place] % (Auto) % Eos % (Auto) % Baso % (Auto) % Neut # (Auto) (1.4-6.5) K/uL Lymph # (Auto) (1.2-3.4) K/uL [place] # (Auto) (0.24-0.82) K/uL Eos # (Auto) (0-0.50) K/uL Baso # (Auto) (0-0.2) K/uL Immature Gran # (Auto) (0.00-0.02) K/uL PT (9.0-12.0) Seconds INR (0.9-1.1) APTT (21.0-31.0) Seconds PTT Ratio VBG pH (7.36-7.41) VBG pCO2 (38-50) mmHg VBG pO2 mmHg VBG HCO3 mmol/L VBG O2 Saturation % VBG Base Excess mEq/L Sodium (136-145) mmol/L Potassium (3.5-5.1) mmol/L Chloride (98-107) mmol/L Carbon Dioxide (21-32) mmol/L Anion Gap (3-11) BUN (6-23) mg/dl Creatinine (0.6-1.4) mg/dl Est Cr Clr Drug Dosing ml/min Est GFR ( Amer) ml/min Est GFR (Non-Af Amer) ml/min BUN/Creatinine Ratio (10-20) Glucose (70-99(Fasting)) mg/dl Lactate (0.4-2.0) mmol/L Calcium (8.5-10.1) mg/dl Magnesium (1.7-2.4) mg/dl Total Bilirubin (0.2-1.0) mg/dl Direct Bilirubin (0-0.2) mg/dl AST (13-39) U/L ALT (7-52) U/L Alkaline Phosphatase (34-104) U/L Troponin I High Sens (0-20) pg/ml B-Natriuretic Peptide (0-100) pg/ml Total Protein (6.0-8.3) gm/dl Albumin (3.4-5.0) gm/dl Procalcitonin < 0.05 (0-0.5) ng/ml Urine Color Yellow Urine Appearance Clear (Clear) Urine pH 5.0 (4.5-7.5) Ur Specific Bent[place] 1.024 (1.000-1.030) Urine Protein Negative (Negative) Urine Glucose (UA) 3+ H (Negative) Urine Ketones Negative (Negative) Urine Blood Negative (Negative) Urine Nitrite Negative (Negative) Urine Bilirubin Negative (Negative) Urine Urobilinogen Negative (Negative) Ur Leukocyte Esterase 1+ H (Negative) Urine WBC (Auto) 5-10 H (0-5) /hpf Urine RBC (Auto) 0-4 (0-4) /hpf U Hyaline Cast (Auto) 1-5 (0-5) /lpf U Epithel Cells (Auto) >30 H (0-5) /lpf Urine Bacteria (Auto) Negative (Negative) Adenovirus (PCR) Not Detected (NotDetected) B. pertussis DNA (PCR) Not Detected (NotDetected) B.parapertussis DNA PCR Not Detected (NotDetected) C. pneumoniae DNA (PCR) Not Detected (NotDetected) Coronavirus OC43 (PCR) Not Detected (NotDetected) Coronavirus HKU1 (PCR) Not Detected (NotDetected) Coronavirus 229E (PCR) Not Detected (NotDetected) SARS-CoV-2 (PCR) Not Detected (NotDetected) Coronavirus NL63 (PCR) Not Detected (NotDetected) Human Metapneumovir PCR Not Detected (NotDetected) Influenza Type A (PCR) Not Detected (NotDetected) Influenza Type B (PCR) Not Detected (NotDetected) M. pneumoniae (PCR) Not Detected (NotDetected) Parainfluenza 1 (PCR) Not Detected (NotDetected) Parainfluenza 2 (PCR) Not Detected (NotDetected) Parainfluenza 3 (PCR) Not Detected (NotDetected) Parainfluenza 4 (PCR) Not Detected (NotDetected) RSV (PCR) Not Detected (NotDetected) Entero/Rhino (PCR) Not Detected (NotDetected) 04/23/22 04/23/22 04/23/22 Range/Units 11:41 11:54 11:54 WBC 17.09 H (4.8-10.8) K/ul RBC 4.51 L (4.63-6.08) M/uL Hgb 12.7 L (14.0-18.0) g/dl Hct 43.1 (40.1-51.0) % MCV 95.6 (80.0-100.0) fL MCH 28.2 (25.0-34.0) pg MCHC 29.5 L (32.0-36.0) g/dL RDW Std Deviation 64.6 H (36.4-46.3) fL RDW Coeff of Mac 18.6 H (11.5-14.5) % Plt Count 390 (130-400) K/uL MPV 10.2 (9.4-12.4) fL Immature Gran % (Auto) 0.4 % Neut % (Auto) 79.2 % Lymph % (Auto) 12.8 % [place] % (Auto) 5.7 % Eos % (Auto) 1.2 % Baso % (Auto) 0.7 % Neut # (Auto) 13.53 H (1.4-6.5) K/uL Lymph # (Auto) 2.19 (1.2-3.4) K/uL [place] # (Auto) 0.97 H (0.24-0.82) K/uL Eos # (Auto) 0.21 (0-0.50) K/uL Baso # (Auto) 0.12 (0-0.2) K/uL Immature Gran # (Auto) 0.07 H (0.00-0.02) K/uL PT 10.5 (9.0-12.0) Seconds INR 1.0 (0.9-1.1) APTT 25.1 (21.0-31.0) Seconds PTT Ratio 0.9 VBG pH (7.36-7.41) VBG pCO2 (38-50) mmHg VBG pO2 mmHg VBG HCO3 mmol/L VBG O2 Saturation % VBG Base Excess mEq/L Sodium 142 (136-145) mmol/L Potassium 4.6 (3.5-5.1) mmol/L Chloride 107 (98-107) mmol/L Carbon Dioxide 27 (21-32) mmol/L Anion Gap 8 (3-11) BUN 21 (6-23) mg/dl Creatinine 2.20 H (0.6-1.4) mg/dl Est Cr Clr Drug Dosing 31.1 ml/min Est GFR ( Amer) 31.8 ml/min Est GFR (Non-Af Amer) 27.5 ml/min BUN/Creatinine Ratio 9.5 L (10-20) Glucose 210 H (70-99(Fasting)) mg/dl Lactate (0.4-2.0) mmol/L Calcium 9.3 (8.5-10.1) mg/dl Magnesium 2.4 (1.7-2.4) mg/dl Total Bilirubin 0.7 (0.2-1.0) mg/dl Direct Bilirubin 0.2 (0-0.2) mg/dl AST 21 (13-39) U/L ALT 16 (7-52) U/L Alkaline Phosphatase 64 (34-104) U/L Troponin I High Sens 60.6 H* D (0-20) pg/ml B-Natriuretic Peptide (0-100) pg/ml Total Protein 8.2 (6.0-8.3) gm/dl Albumin 4.6 (3.4-5.0) gm/dl Procalcitonin (0-0.5) ng/ml Urine Color Urine Appearance (Clear) Urine pH (4.5-7.5) Ur Specific [place] (1.000-1.030) Urine Protein (Negative) Urine Glucose (UA) (Negative) Urine Ketones (Negative) Urine Blood (Negative) Urine Nitrite (Negative) Urine Bilirubin (Negative) Urine Urobilinogen (Negative) Ur Leukocyte Esterase (Negative) Urine WBC (Auto) (0-5) /hpf Urine RBC (Auto) (0-4) /hpf U Hyaline Cast (Auto) (0-5) /lpf U Epithel Cells (Auto) (0-5) /lpf Urine Bacteria (Auto) (Negative) Adenovirus (PCR) (NotDetected) B. pertussis DNA (PCR) (NotDetected) B.parapertussis DNA PCR (NotDetected) C. pneumoniae DNA (PCR) (NotDetected) Coronavirus OC43 (PCR) (NotDetected) Coronavirus HKU1 (PCR) (NotDetected) Coronavirus 229E (PCR) (NotDetected) SARS-CoV-2 (PCR) (NotDetected) Coronavirus NL63 (PCR) (NotDetected) Human Metapneumovir PCR (NotDetected) Influenza Type A (PCR) (NotDetected) Influenza Type B (PCR) (NotDetected) M. pneumoniae (PCR) (NotDetected) Parainfluenza 1 (PCR) (NotDetected) Parainfluenza 2 (PCR) (NotDetected) Parainfluenza 3 (PCR) (NotDetected) Parainfluenza 4 (PCR) (NotDetected) RSV (PCR) (NotDetected) Entero/Rhino (PCR) (NotDetected) 04/23/22 04/23/22 04/23/22 Range/Units 11:54 11:54 11:54 WBC (4.8-10.8) K/ul RBC (4.63-6.08) M/uL Hgb (14.0-18.0) g/dl Hct (40.1-51.0) % MCV (80.0-100.0) fL MCH (25.0-34.0) pg MCHC (32.0-36.0) g/dL RDW Std Deviation (36.4-46.3) fL RDW Coeff of Mac (11.5-14.5) % Plt Count (130-400) K/uL MPV (9.4-12.4) fL Immature Gran % (Auto) % Neut % (Auto) % Lymph % (Auto) % [place] % (Auto) % Eos % (Auto) % Baso % (Auto) % Neut # (Auto) (1.4-6.5) K/uL Lymph # (Auto) (1.2-3.4) K/uL [place] # (Auto) (0.24-0.82) K/uL Eos # (Auto) (0-0.50) K/uL Baso # (Auto) (0-0.2) K/uL Immature Gran # (Auto) (0.00-0.02) K/uL PT (9.0-12.0) Seconds INR (0.9-1.1) APTT (21.0-31.0) Seconds PTT Ratio VBG pH 7.24 L (7.36-7.41) VBG pCO2 63 H (38-50) mmHg VBG pO2 79 mmHg VBG HCO3 27 mmol/L VBG O2 Saturation 94.5 % VBG Base Excess -1.7 mEq/L Sodium (136-145) mmol/L Potassium (3.5-5.1) mmol/L Chloride (98-107) mmol/L Carbon Dioxide (21-32) mmol/L Anion Gap (3-11) BUN (6-23) mg/dl Creatinine (0.6-1.4) mg/dl Est Cr Clr Drug Dosing ml/min Est GFR ( Amer) ml/min Est GFR (Non-Af Amer) ml/min BUN/Creatinine Ratio (10-20) Glucose (70-99(Fasting)) mg/dl Lactate 1.5 (0.4-2.0) mmol/L Calcium (8.5-10.1) mg/dl Magnesium (1.7-2.4) mg/dl Total Bilirubin (0.2-1.0) mg/dl Direct Bilirubin (0-0.2) mg/dl AST (13-39) U/L ALT (7-52) U/L Alkaline Phosphatase (34-104) U/L Troponin I High Sens (0-20) pg/ml B-Natriuretic Peptide 735 H (0-100) pg/ml Total Protein (6.0-8.3) gm/dl Albumin (3.4-5.0) gm/dl Procalcitonin (0-0.5) ng/ml Urine Color Urine Appearance (Clear) Urine pH (4.5-7.5) Ur Specific [place] (1.000-1.030) Urine Protein (Negative) Urine Glucose (UA) (Negative) Urine Ketones (Negative) Urine Blood (Negative) Urine Nitrite (Negative) Urine Bilirubin (Negative) Urine Urobilinogen (Negative) Ur Leukocyte Esterase (Negative) Urine WBC (Auto) (0-5) /hpf Urine RBC (Auto) (0-4) /hpf U Hyaline Cast (Auto) (0-5) /lpf U Epithel Cells (Auto) (0-5) /lpf Urine Bacteria (Auto) (Negative) Adenovirus (PCR) (NotDetected) B. pertussis DNA (PCR) (NotDetected) B.parapertussis DNA PCR (NotDetected) C. pneumoniae DNA (PCR) (NotDetected) Coronavirus OC43 (PCR) (NotDetected) Coronavirus HKU1 (PCR) (NotDetected) Coronavirus 229E (PCR) (NotDetected) SARS-CoV-2 (PCR) (NotDetected) Coronavirus NL63 (PCR) (NotDetected) Human Metapneumovir PCR (NotDetected) Influenza Type A (PCR) (NotDetected) Influenza Type B (PCR) (NotDetected) M. pneumoniae (PCR) (NotDetected) Parainfluenza 1 (PCR) (NotDetected) Parainfluenza 2 (PCR) (NotDetected) Parainfluenza 3 (PCR) (NotDetected) Parainfluenza 4 (PCR) (NotDetected) RSV (PCR) (NotDetected) Entero/Rhino (PCR) (NotDetected) Administered Medications Discontinued Medications Furosemide (Furosemide 40 Mg/4 Ml Vial) 80 mg IV ONE ONE Stop: 04/23/22 11:13 Last Admin: 04/23/22 11:18 Dose: 80 mg Documented By: LEONEL Lorazepam (Lorazepam 2 Mg/1 Ml Vial) 1 mg IV NOW STA; Protocol Stop: 04/23/22 11:37 Last Admin: 04/23/22 11:43 Dose: 1 mg Documented By: ES Imaging Data Radiologist's Impression: Chest X-Ray 04/23/22 10:55 XR chest 1V portable CLINICAL HISTORY: Sepsis TECHNIQUE: Single frontal radiograph of the chest was obtained. Comparison: Comparison is made to chest radiograph 03/17/2022 FINDINGS: No lines and tubes are seen. Cardiomegaly is noted. There is prominence and cephalization of the vasculature with Noemy B lines seen. Diffuse airspace opacities are somewhat increased from prior exam. Small left pleural effusion. IMPRESSION: At least moderate pulmonary edema. Diffuse airspace opacities may represent pneumonia, atelectasis, aspiration, and/or alveolar edema. There is a small left pleural effusion. ACT 112: Negative or not required by law. Electronically signed by: Adarsh Sommers M.D. 04/23/2022 12:30 PM Discharge Plan Visit Data Chief Complaint: Shortness of Breath/Dyspnea Stated Complaint: SOB ED Provider: Adriano Trujillo Discharge Problem: Pulmonary edema, Acute respiratory acidosis, Respiratory failure, DEBORA (acute kidney injury), Elevated troponin I level Patient Disposition: Admitted As Inpatient Discharge Instructions Interventions: ED Discharge Assessment Last Done: 04/23/22 13:43
[2022-04-23] MEDS ORDERED: LORazepam 2 MG/2 ML SYR IV STA (11:36)
[2022-04-23 11:55] LABS: Appearance Urine Clear (Clear); Bacteria Urine Automated Negative (Negative); Bilirubin Urine Negative (Negative); Blood Urine Negative (Negative); Color Urine Yellow; Epithelial Cell Urine Auto >30 /lpf (0-5); Glucose Urine UA 3+ (Negative); Ketones Urine Negative (Negative); Leukocyte Esterase Urine 1+ (Negative); Nitrite Urine Negative (Negative); Protein Urine Negative (Negative); RBC Urine Automated 0-4 /hpf (0-4); Specific Gravity Urine 1.024 (1.000-1.030); Urobilinogen Urine Negative (Negative)
[2022-04-23 12:01] LABS: Partial Thromboplastin Ratio 0.9; Partial Thromboplastin Time 25.1 Seconds (21.0-31.0); Prothrombin Time 10.5 Seconds (9.0-12.0)
[2022-04-23 12:10] LABS: Basophils # (auto) 0.12 K/uL (0-0.2); Basophils % (auto) 0.7 %; Eosinophils # (auto) 0.21 K/uL (0-0.50); Eosinophils % (auto) 1.2 %; Hematocrit (blood only) 43.1 % (40.1-51.0); Hemoglobin 12.7 g/dl (14.0-18.0); Immature Granulocytes # (auto) 0.07 K/uL (0.00-0.02); Immature Granulocytes % (auto) 0.4 %; Lymphocytes # (auto) 2.19 K/uL (1.2-3.4); Lymphocytes % (auto) 12.8 %; Mean Corpuscular Hemoglobin 28.2 pg (25.0-34.0); Mean Corpuscular Hgb Conc 29.5 g/dL (32.0-36.0); Mean Corpuscular Volume 95.6 fL (80.0-100.0); Mean Platelet Volume 10.2 fL (9.4-12.4); Monocytes # (auto) 0.97 K/uL (0.24-0.82); Monocytes % (auto) 5.7 %; Neutrophils # (auto) 13.53 K/uL (1.4-6.5); Neutrophils % (auto) 79.2 %; Platelet Count 390 K/uL (130-400); RDW Coefficient of Variation 18.6 % (11.5-14.5); RDW Standard Deviation 64.6 fL (36.4-46.3); Red Blood Count 4.51 M/uL (4.63-6.08); White Blood Count 17.09 K/ul (4.8-10.8)
[2022-04-23 12:12] LABS: Adenovirus PCR Not Detected (NotDetected); Bordetella parapertussis PCR Not Detected (NotDetected); Bordetella pertussis PCR Not Detected (NotDetected); Chlamydia pneumoniae PCR Not Detected (NotDetected); Coronavirus 229E PCR Not Detected (NotDetected); Coronavirus CoV-2 (COVID19)PCR Not Detected (NotDetected); Coronavirus HKU1 PCR Not Detected (NotDetected); Coronavirus NL63 PCR Not Detected (NotDetected); Coronavirus OC43PCR Not Detected (NotDetected); Human Metapneumovirus PCR Not Detected (NotDetected); Influenza A PCR Not Detected (NotDetected); Influenza B PCR Not Detected (NotDetected); Mycoplasma pneumoniae PCR Not Detected (NotDetected); Parainfluenza Virus 1 PCR Not Detected (NotDetected); Parainfluenza Virus 2 PCR Not Detected (NotDetected); Parainfluenza Virus 3 PCR Not Detected (NotDetected); Parainfluenza Virus 4 PCR Not Detected (NotDetected); Respiratory Syncytial VirusPCR Not Detected (NotDetected); Rhinovirus/Enterovirus PCR Not Detected (NotDetected)
[2022-04-23 12:12] LABS: Base Excess VBG -1.7 mEq/L; HCO3 VBG 27 mmol/L; Oxygen Saturation VBG 94.5 %; PCO2 VBG 63 mmHg (38-50); PO2 VBG 79 mmHg; pH VBG 7.24 (7.36-7.41)
--- NOTE | 2022-04-23 12:32 | XRay Report ---
XR chest 1V portable CLINICAL HISTORY: Sepsis TECHNIQUE: Single frontal radiograph of the chest was obtained. Comparison: Comparison is made to chest radiograph 03/17/2022 FINDINGS: No lines and tubes are seen. Cardiomegaly is noted. There is prominence and cephalization of the vasc ulature with Noemy B lines seen. Diffuse airspace opacities are somewhat increased from prior exam. Small left pleural effusion. IMPRESSION: At least moderate pulmonary edema. Diffuse airspace opacities may represent pneumonia, atelectasis, a spiration, and/or alveolar edema. There is a small left pleural effusion. ACT 112: Negative or not required by law. Electronically signed by: Adarsh Sommers M.D. 04/23/2022 12:30 PM
[2022-04-23 12:37] LABS: Albumin Level 4.6 gm/dl (3.4-5.0); BUN Creatinine Ratio 9.5 (10-20); Bilirubin Direct 0.2 mg/dl (0-0.2); Bilirubin,Total 0.7 mg/dl (0.2-1.0); Calcium 9.3 mg/dl (8.5-10.1); Creatinine Clr Calc Pharmacy 31.1 ml/min; Est GFR (African American) 31.8 ml/min; Est GFR (Non-African American) 27.5 ml/min; Magnesium 2.4 mg/dl (1.7-2.4); Potassium 4.6 mmol/L (3.5-5.1); Total Protein 8.2 gm/dl (6.0-8.3)
--- NOTE | 2022-04-23 12:50 | History & Physical Report ---
Date of Service April 23, 2022 Assessment & Plan (1) Acute on chronic heart failure with preserved ejection fraction (HFpEF): Plan: - CXR with pulmonary vascular congestion, b/l pedal edema, JVD. - BNP 735, decreased from prior admission. trop 60. - SpO2 60s at home on RA, transitioned to BIPAP in ED. - known severe awaiting TAVR procedure, HF with EF 50-55%. Noncompliant with low sodium diet, CPAP per . - 80 mg IV Lasix in ED; continue with 40 mg IV BID but with caution given downtrending BPs. - Maintain on BIPAP; patient beginning to move air less efficiently, does have underlying mixed restrictive/obstructive lung disease, however has made wishes clear that he does not wish to be intubated under any circumstances. - Cardiology consulted, appreciate their assistance and recommendations. (2) Acute respiratory failure with hypoxia: Plan: - 2/2 acute HF exacerbation likely driven by severe . - Plan as above. (3) Acute respiratory acidosis: Plan: - Hypoxia due to severe , mixed restrictive/obstructive lung disease. - BIPAP. Initial VBG 7.24/63/79/27. Repeating one hour after BIPAP initiated. - Patient is somnolent and not moving air incredibly well, could be due to receiving lorazepam in ED as patient initially presented quite anxious. Has underlying mixed restrictive/obstructive lung dz. - Strict wishes previously expressed by patient that he would not want to be intubated under any circumstances. (4) Aortic stenosis: Plan: - Severe. Last echo on 03/02: severe , EF 50-55%, no regional wall abnormalities, severe concentric LVH. - [place] [facility] [place]; Echo, CT chest updated then, patient currently waiting to hear back about procedure date. - Patient needs IV diuresis for congestion, however given BP starting to drop, will have to be cautious not to overdiurese and cause acute drop in BP. (5) Acute kidney injury superimposed on CKD: Plan: - Cr 2.20, baseline 1.5-1.7. - Likely due to hypoperfusion 2/2/ HF, . - Will have to take some bump in Cr while diuresing. - Monitor on daily labs and renally dose medications as able. Avoid nephrotoxins. (6) Anemia: Plan: - Hgb 12.7, stable/increased from last admission. - Was heme + last admission, no obvious bleeding or further workup at that point. - On PO iron at home. - Continue to monitor on routine labs. (7) Elevated troponin: Plan: - Mildly elevated at 60, significantly decreased from last admission where it peaked at 9000. Likely in the setting of severe and hypoxia to 60s at home, this does not represent ACS. His EKG appears similar to previous. - Will obtain troponin with AM labs. - EKG with any reports of CP or anginal equivalent symptoms. (8) Nonocclusive coronary atherosclerosis of [place] coronary artery: Plan: - Continue ASA, statin, Ranexa; metoprolol on hold given low BPs while diuresing. - EKG with similar ST depressions in lateral leads that have been seen previously. (9) Diabetes mellitus, type 2: Plan: - Lantus 15 u BID with SSI (25 CF, 8 CR) - Accuhecks ACHS/q6h while NPO. - A1c last admission 7.0% (10) GERD (gastroesophageal reflux disease): Plan: - Continue PPI. 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 - Obstructive due to prior tobacco chew, chemical exposure at work - Continue Anoro daily, albuterol prn. (12) Obstructive sleep apnea syndrome: Plan: - CPAP at night however patient noncompliant. (13) S/P lobectomy of lung: Plan: - in 2017, due to adenocarcinoma. Plan - Admit to PCU. - SCDS and SC Heparin for VTE ppx. - DNR/DNI. CODE STATUS discussed with , who is at bedside. Patient has expressed several times that he would not want resuscitation or intubation under any circumstances. History of Present Illness Chief Complaint: Shortness of breath x1 day Primary Care Provider: Mili Barnes MD Juancho Bronson is a 73-year-old male with a past medical history significant for HFpEF, severe aortic stenosis, CAD, CKD, hypertension, hyperlipidemia, GERD, VADIM, and adenocarcinoma restrictive/obstructive lung disease, s/p lobectomy in 2018 who is presenting today due to shortness of breath at home. For several days he has felt generally unwell and fatigued. Over the past several days he has noticed swelling in his legs and this morning, was acutely short of breath. EMS was called to the home and notes that when they arrived patient's oxygen saturation was in the 60s. He was given a breathing treatment, full dose aspiri n, and nitroglycerin. He has had several hospitalizations over the past 2 months for CHF, in the setting of severe aortic stenosis and noncompliance with CPAP and low-sodium diet. Since discharge on 03/20, patient was evaluated at [facility] for TAVR. He has had preop echo and chest CT done, however has not heard back yet about a scheduled procedure date. He saw his hogshead builder on 04/16 again advised to decrease sodium intake and use CPAP at night. No new medications were started at that time. On presentation to the ED, oxygen was 86%, he was placed on BiPAP, now with SPO2 >92%. He is tachycardic with HR 110s, tachypneic with RR 30s, hypertensive however now becoming borderline hypotensive with BP 90s/40s after receiving Lasix and lorazepam in the ED. CXR shows pulmonary edema. Labs significant for an elevated WBC 17 with left shift, however procalcitonin is negative. VBG 7.24/63/79/27. His creatinine is 2.20, baseline 1.51.7. Lactate 1.5. Troponin 60, BNP 735, decreased from last admission. Urine does not appear infected. Respiratory bio fire panel negative across. Prior to arrival, patient received full dose ASA and nitroglycerin. He has received 80 mg IV Lasix and 1 mg IV lorazepam in the ED. Patient has been somnolent since arrival, possibly due to receiving Ativan here and per , also received a dose of Ativan in the field. Allergies Allergy/AdvReac Type Severity Reaction Status Date / Time sulfamethoxazole Allergy Hives Verified 04/16/22 14:25 [From Bactrim] trimethoprim [From Bactrim] Allergy Hives Verified 04/16/22 14:25 Home Medications Medication Instructions Recorded Confirmed Type aspirin 81 mg tablet,delayed 81 mg PO BID 04/25/18 04/28/22 History release multivitamin 1 tab PO QAM 04/25/18 04/28/22 History guaifenesin 1,200 mg tablet, 1,200 mg PO BID 04/27/19 04/28/22 History extended release 12 hr (Mucinex) CPAP Machine #1 ea 07/17/19 03/23/22 Rx CPAP Supplies #1 ea 05/23/20 03/23/22 Rx nebulizers ([employer] Go Nebulizer) #1 ea 05/23/20 04/16/22 Rx Flutter Valve #1 ea 05/24/20 04/16/22 Rx ipratropium 0.5 mg-albuterol 3 mg 3 ml inhalation Q8H PRN shortness 11/25/20 04/28/22 Rx (2.5 mg base)/3 mL nebulization of breath or wheezing #270 mL soln fluticasone propionate 50 1 spray intranasal DAILY #9.9 grams 03/24/21 04/28/22 Rx mcg/actuation nasal spray,suspension (Allergy Relief (fluticasone)) isosorbide mononitrate 60 mg 60 mg PO DAILY 11/08/21 04/28/22 History tablet,extended release 24 hr umeclidinium 62.5 mcg-vilanterol 1 inh inhalation DAILY #60 ea 11/13/21 04/28/22 Rx 25 mcg/actuation powdr for inhalation (Anoro Ellipta) potassium chloride 10 mEq 20 meq PO .COMPLEX 01/14/22 04/28/22 History capsule,extended release ferrous sulfate 324 mg (65 mg 324 mg PO Q OTHER DAY #30 tabs 03/06/22 04/28/22 Rx iron) tablet,delayed release furosemide 40 mg tablet 40 mg PO DAILY #30 tabs 03/06/22 04/28/22 Rx empagliflozin 10 mg tablet 10 mg PO DAILY #90 tabs 03/10/22 04/28/22 Rx gabapentin 300 mg capsule 300 mg PO BID #180 caps 03/10/22 04/28/22 Rx insulin lispro protamine-lispro 50 unit subcut QPM 03/10/22 04/28/22 History 100 unit/mL (75-25) subcutaneous susp (Humalog Mix 75-25(U-100)Insuln) insulin lispro protamine-lispro 75 unit subcut QAM 03/10/22 04/28/22 History 100 unit/mL (75-25) subcutaneous susp (Humalog Mix 75-25(U-100)Insuln) metoprolol succinate 100 mg 100 mg PO DAILY #90 tabs 03/10/22 04/28/22 Rx tablet,extended release 24 hr rosuvastatin 40 mg tablet 40 mg PO DAILY #90 tabs 03/10/22 04/28/22 Rx dulaglutide 0.75 mg/0.5 mL 0.75 mg (0.5 mL) subcut .weekly #6 03/31/22 04/28/22 Rx subcutaneous pen injector mL (Trulicity) pantoprazole 40 mg tablet,delayed 40 mg PO BID #60 tabs 04/08/22 04/28/22 Rx release Past Med/Surg History Medical History (Updated 04/23/22 @ 15:52 by Joaquín Murray MD) Anemia Aortic stenosis CAD (coronary artery disease) NON-OBSTRUCTIVE Cholelithiasis CKD (chronic kidney disease) baseline creatinine 1.6 Diabetes Diabetes mellitus, type 2 IDDM, +B/L FEET NEUROPATHY Dyspnea on exertion Gastro-esophageal reflux GERD (gastroesophageal reflux disease) Hearing deficit wears hearing aids Heart failure with preserved ejection fraction Hiatal hernia Hyperlipidemia Hypertension Impacted cerumen of left ear Lip ulcer Lung cancer Discharge summary dated 04/06/[address] Mari: HOSPITAL COURSE: This is a very nice 77-year-old male who was found to have a mass. It certainly appeared to be a carcinoma in the left upper lobe. We worked him up and felt he would be a candidate for a resection. Upon opening the lung, getting into the patient's chest with our robotic thoracoscopic resection on 03/30/2018, I was quite pleased. We took down the fissure quite nicely, took down all of the arterial branches but one and had the vein isolated as well as the bronchus and the patient had a tear of this remaining artery. We controlled this, we had to open the chest. We eventually got control and I repaired this primarily. The patient was extubated later that day. We had a significant blood loss. The patient was transfused. He also had a creatinine of 1.71 preop. This went as high as 3 in the subsequent days, but then came back down. He looked very good the day after surgery. He was requiring no oxygen and was eating a regular diet. We had some drainage from the chest tubes. We kept it in for a few days. There was no evidence of bleeding. Frankly I was quite pleased with him. He was ambulating in the hallway. He was moving his bowels, although he required some cathartics. Hemoglobin settled down in the low 8. We left it there after used 4 units total of blood. Creatinine came back down. He was making excellent urine. Creatinine was 2.51 the day before discharge. His incisions were all clean. We removed his chest tube after he had a small pneumothorax, a small amount of fluid and on 04/05/2018, I performed an aspiration of this and his pneumothorax had resolved. I was quite happy with this. The following day, I did not really see much of pneumothorax. He had a bit more fluid, but he was on room air, ambulating and I think it is best for him to go home. 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 I told her to call me directly should there be any issues. Quite frankly, I was quite pleased with him. His incisions were clean. He had very little in the way of pain. We did send him home on tramadol and told to resume his regular medications. I will see him back in the office next week. 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 Robotic L VATS converted to open procedure. Glidescope assisted PERFECTO insertion. During surgery there was significant bleeding from the pulmonary artery which forced a change to an open thoracotomy and was difficult to control. Fluids were given followed by blood and between the blood loss and manipulation in the chest there were some brief times when the eros was showing very little pulse. His CO2 tracing dropped but never went to nothing. Along with the fluids he did receive 0.5mg epi and 2 units of vasopressin in addition to occasional small doses of ephedrine and phenylephrine. Blood loss was controlled and his vitals stabilized for the rest of the case. At the end of the procedure, we changed to a single lumen ETT and Dr Mari did a bronchoscopy which showed a little blood in the bronchi but basically clear. He is making urine, his vitals are stable, we are leaving him on the ventilator for the mean time to allow him to wake and make sure he is not acidotic. Labs and chest film are being done now - re port to ICU MD. Surgical History History of cardiac cath [id number] NO STENTS [facility] [address] [facility] History of cholecystectomy 11/22/2014. DL x2. Glidescope #3 by ELIANA and 7.5 ETT inserted. Grade 3 view. History of colonoscopy History of lobectomy of lung left upper lobe 03/30/[facility] S/P lobectomy of lung Family History Father Cardiac disorder Other No family history of bleeding disorder Social History Smoking Status: Former smoker Tobacco Type: Smokeless Tobacco (Dip or Chew) Second Hand Exposure: No; Hx Alcohol Use: No Hx Substance Use: No Preferred Language: Persian Communication Ability: Effective Visual Impairment: No Limitations [employer] Required: No Beliefs That Will Affect Care: None marital status: Current Living Situation: Spouse current occupational status: retired How many Children do You have: 1 Feels Safe at Home: Yes Dental Care, Regularly: Yes Seatbelt Use: always Sunscreen Use: No Assistive Devices: Cane and Walker Review of Systems Review of Systems: Unobtainable due to reduced consciousness Physical Exam Physical Exam: General: Patient is drowsy, on BiPAP. Head: Normocephalic, atraumatic ENT: PERRL, EOMI, no pharyngeal exudate, mucous membranes moist Chest: rhonchi appreciated throughout, moving air Cardiac: Tachycardic rate, regular rhythm, murmurs difficult to appreciate due to breath sounds on BiPAP; normal peripheral pulses, good capillary refill Abdominal: NABS x 4 quadrants, soft, nontender to palpation, no rebound, guarding or tenderness Extremities: b/l pedal edema; calfs nontender to palpation Psych: unable to assess due to somnolent state Neuro: unable to assess due to somnolent state Skin: no rash or erythema Results & Data Results & Data ([facility]) Vital Signs (Past 12 Hours) Vital Signs Temp Pulse Pulse Resp BP BP Pulse Ox 04/23/22 12:45 94/47 L 04/23/22 12:45 89 19 99 04/23/22 12:30 93 H 20 99 04/23/22 12:30 94/60 L 04/23/22 12:16 102 H 21 98 04/23/22 12:16 130/61 04/23/22 12:01 113 H 26 H 96 04/23/22 12:01 167/84 H 04/23/22 12:00 114 H 28 H 96 04/23/22 11:58 116 H 16 95 04/23/22 11:58 154/88 H 04/23/22 12:12 104 H 23 167/84 H 98 04/23/22 12:00 114 H 26 H 167/84 H 96 04/23/22 11:45 122 H 30 H 100 04/23/22 11:30 122 H 32 H 86 L 04/23/22 11:19 117 H 31 H 96 04/23/22 11:36 36.3 C L 04/23/22 11:30 122 H 32 H 173/106 H 86 L 04/23/22 11:15 115 H 28 H 99 04/23/22 11:14 121 H 20 95 04/23/22 11:14 95 04/23/22 11:14 117 H 29 H 193/136 H 95 O2 Del Method FiO2 04/23/22 12:45 04/23/22 12:45 04/23/22 12:30 04/23/22 12:30 04/23/22 12:16 04/23/22 12:16 04/23/22 12:01 04/23/22 12:01 04/23/22 12:00 04/23/22 11:58 04/23/22 11:58 04/23/22 12:12 BiPAP 04/23/22 12:00 BiPAP 04/23/22 11:45 BiPAP 04/23/22 11:30 BiPAP 04/23/22 11:19 BiPAP 04/23/22 11:36 04/23/22 11:30 BiPAP 04/23/22 11:15 40 04/23/22 11:14 BiPAP 04/23/22 11:14 BiPAP 04/23/22 11:14 BiPAP Laboratory Results Abnormal lab results 04/23/22 04/23/22 04/23/22 Range/Units 11:39 11:54 11:54 WBC 17.09 H (4.8-10.8) K/ul RBC 4.51 L (4.63-6.08) M/uL Hgb 12.7 L (14.0-18.0) g/dl MCHC 29.5 L (32.0-36.0) g/dL RDW Std Deviation 64.6 H (36.4-46.3) fL RDW Coeff of Mac 18.6 H (11.5-14.5) % Neut # (Auto) 13.53 H (1.4-6.5) K/uL [place] # (Auto) 0.97 H (0.24-0.82) K/uL Immature Gran # (Auto) 0.07 H (0.00-0.02) K/uL VBG pH (7.36-7.41) VBG pCO2 (38-50) mmHg Creatinine 2.20 H (0.6-1.4) mg/dl BUN/Creatinine Ratio 9.5 L (10-20) Glucose 210 H (70-99(Fasting)) mg/dl Troponin I High Sens 60.6 H* D (0-20) pg/ml B-Natriuretic Peptide (0-100) pg/ml Urine Glucose (UA) 3+ H (Negative) Ur Leukocyte Esterase 1+ H (Negative) Urine WBC (Auto) 5-10 H (0-5) /hpf U Epithel Cells (Auto) >30 H (0-5) /lpf 04/23/22 04/23/22 Range/Units 11:54 11:54 WBC (4.8-10.8) K/ul RBC (4.63-6.08) M/uL Hgb (14.0-18.0) g/dl MCHC (32.0-36.0) g/dL RDW Std Deviation (36.4-46.3) fL RDW Coeff of Mac (11.5-14.5) % Neut # (Auto) (1.4-6.5) K/uL [place] # (Auto) (0.24-0.82) K/uL Immature Gran # (Auto) (0.00-0.02) K/uL VBG pH 7.24 L (7.36-7.41) VBG pCO2 63 H (38-50) mmHg Creatinine (0.6-1.4) mg/dl BUN/Creatinine Ratio (10-20) Glucose (70-99(Fasting)) mg/dl Troponin I High Sens (0-20) pg/ml B-Natriuretic Peptide 735 H (0-100) pg/ml Urine Glucose (UA) (Negative) Ur Leukocyte Esterase (Negative) Urine WBC (Auto) (0-5) /hpf U Epithel Cells (Auto) (0-5) /lpf Diagnostic Findings Chest X-Ray 04/23/22 10:55 XR chest 1V portable CLINICAL HISTORY: Sepsis TECHNIQUE: Single frontal radiograph of the chest was obtained. Comparison: Comparison is made to chest radiograph 03/17/2022 FINDINGS: No lines and tubes are seen. Cardiomegaly is noted. There is prominence and cephalization of the vasculature with Noemy B lines seen. Diffuse airspace opacities are somewhat increased from prior exam. Small left pleural effusion. IMPRESSION: At least moderate pulmonary edema. Diffuse airspace opacities may represent pneumonia, atelectasis, aspiration, and/or alveolar edema. There is a small left pleural effusion. ACT 112: Negative or not required by law. Electronically signed by: Adarsh Sommers M.D. 04/23/2022 12:30 PM ECG Additional Comments: Sinus tachycardia Left ventricular hypertrophy with repolarization abnormality Abnormal ECG When compared with ECG of 18-MAR-2022 06:02, ST more depressed Lateral leads. EKG findings are similar to those seen on tracings from recent hospitalization. Code Status & VTE Plan Code Status DNR/DNI. CODE STATUS discussed with , who is at bedside. Patient has expressed several times that he would not want resuscitation or intubation under any circumstances. Supervising Physician Co-Signing Physician Notes I personally saw and examined the patient. I verified all mccrary points and agree with Andie Zaman PA-C with the following exceptions and/or additions: 81 year old admission fro shortness of breath, Patient with repeated episodes of CHF due to severe aortic stenosis. Readmission for the same from March 20. O/E Chest bibasal crackles, HS1+2, systolic late opening murmur. Abdo SNT A/P Acute HFpEF due to aortic stenosis - consult cardiology to aid in eventual TAVR, Agree with Lasix 40mg IV BID as above (80mg IV given as first dose in the ER. PG Care Time/CCT Total # of Minutes Spent Total Time Spent with Patient: Total time spent is greater than 50% in coordination of care (as documented) at patient's floor/unit and/or counseling patient: Coding Level of Care Code 93819 Initial Inpt Care Lvl 3 Diagnoses Acute on chronic heart failure with preserved ejection fraction (HFpEF) I50.33 Acute respiratory failure with hypoxia J96.01 Acute respiratory acidosis E87.2 Aortic stenosis I35.0 Acute kidney injury superimposed on CKD N17.9; N18.9 Anemia D64.9 Elevated troponin R77.8 Nonocclusive coronary atherosclerosis of [place] coronary artery I25.10 Diabetes mellitus, type 2 E11.9 GERD (gastroesophageal reflux disease) K21.9 Mixed restrictive and obstructive lung disease J43.9; J98.4 Obstructive sleep apnea syndrome G47.33 S/P lobectomy of lung Z90.2
[2022-04-23 13:09] LABS: Troponin I High Sensitivity 60.6 pg/ml (0-20)
[2022-04-23] MEDS ORDERED: GLUCOSE 10 TAB/TUBE PO PRN (14:26)
[2022-04-23] MEDS ORDERED: DEXTROSE 50% 50 ML SYRINGE IV PRN (14:26)
[2022-04-23] MEDS ORDERED: GLUCOSE 40% GEL 15 GM TUBE PO PRN (14:26)
[2022-04-23] MEDS ORDERED: ALBUT/IPRATROP 3MG/0.5MG NEB 3 ML VIAL INH PRN (14:26)
[2022-04-23] MEDS ORDERED: ONDANSETRON INJ 2 MG/ML 2 ML VIAL IV PRN (14:26)
[2022-04-23] MEDS ORDERED: CARBOHYDRATES FOR HYPOGLYCEMIA PO PRN (14:26)
[2022-04-23] MEDS ORDERED: ACETAMINOPHEN 325 MG TAB PO PRN (14:26)
[2022-04-23] MEDS ORDERED: POLYETHYLENE (MIRALAX) 17 GM PACK PO PRN (14:26)
[2022-04-23] MEDS ORDERED: GLUCAGON FOR INJ 1 MG VIAL SQ PRN (14:26)
[2022-04-23 14:38] LABS: Base Excess VBG 3.2 mEq/L; HCO3 VBG 30 mmol/L; PCO2 VBG 53 mmHg (38-50); PO2 VBG 52 mmHg; pH VBG 7.36 (7.36-7.41)
--- NOTE | 2022-04-23 15:32 | Cardiology Consultation ---
Date of Consultation April 23, 2022 Assessment & Plan (1) Acute on chronic heart failure with preserved ejection fraction (HFpEF): (2) Aortic stenosis: (3) Elevated troponin: (4) Acute respiratory failure with hypoxia: (5) CAD (coronary artery disease): (6) Hypertension: (7) Dyslipidemia: Plan ASSESSMENT/PLAN: 1. Acute on chronic HFpEF: He appears to be significantly hypervolemic. Continue Lasix 40 mg IV b.i.d.. Strict I&Os. Daily weights. Low-sodium diet when able to tolerate food. Appears to be diuresing well with approximately 800 mL of fluid in his Gallardo bag. Currently on BiPAP. Heart failure likely exacerbated by known severe aortic stenosis. 2. Aortic stenosis: Severe. Has been evaluated at [facility] for TAVR, but date is currently pending. Call placed to [facility] to discuss with Dr. Barnett, who has seen him in consultation earlier this month. 3. Elevated troponin: Likely due to demand ischemia in the setting of acute CHF and respiratory failure with hypoxia. Nonobstructive CAD on recent cardiac catheterization. 4. Acute respiratory failure with hypoxia: Likely due to CHF in the setting of mixed restrictive and obstructive lung disease and previous lobectomy. Has been followed by pulmonology as an outpatient. 5. CAD: Nonobstructive. Recommend aspirin 81 mg daily. No angina. Continue statin therapy and beta-angela. 6. Dyslipidemia: Continue high-intensity statin therapy. 7. Hypertension: Thus far he has been hypertensive and mildly hypotensive. Currently, blood pressure well controlled. 8. Disposition: Cardiology will continue to follow. Patient care communicated with primary hospitalist service, Andie Zaman. On discharge, should follow-up with Dr. Garland, her primary ditto machine operator. Awaiting call back from [facility] Dr. Barnett. Highly complex medical issues. Thank you for allowing me to participate in the care of your patient. Please call for any other questions or concerns. Sincerely, Reed Murray M.D. History of Present Illness Reason for Consultation: Acute on Chronic HF, severe Requesting Physician: Andie Zaman Attending Physician: Jeyson Olguin MD History of Present Illness Mr. 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 His primary ditto machine operator is Dr. Garland. He has had the following studies/procedures: 1. Echo 03/02/2022: Normal LV size. EF 50-55%. Normal wall motion. Severe LVH. Mild biatrial dilation. Severe . Mild MR. Limited echo. 2. Cardiac catheterization 03/03/2022: Ostial left main 30-40%. Distal LM 30%. Ostial LAD 40-50%. Prox LAD 20-30%. Mid circumflex 20%. Dominant RCA. Ostial RCA 30-50%. Distal RCA 10%. He has been hospitalized in January of 2022 where he was diagnosed with COVID-19 and CHF. He was again hospitalized in February of 2020 to with NSTEMI and acute on chronic HFpEF. He was discharged on 03/06/2022 but then readmitted on 03/17/2022 with acute on chronic HFpEF. He was later discharged on 03/20/2022. He was seen by [facility] Cardiology, Dr. Barnett on 03/27/2022, with the plan of expediting workup for TAVR. He presented to the hospital today with worsening shortness of breath. Unfortunately when I was at the bedside, he had received Ativan and was somnolent. He was arousable to loud verbal stimuli. He denied chest pain. He admitted that he had worsening shortness of breath began yesterday. He noted edema. EMS was called and he was found to be hypoxic with oxygen saturation in the 60s. He was given a breathing treatment, full-dose aspirin, and nitroglycerin per report. While in the emergency department, his oxygen saturation was 86% and he was placed on BiPAP. He was tachypneic and tachycardic, as well as hypertensive but then became mildly hypotensive after receiving Lasix and Ativan in the emergency department. In the hospital room, he inquired how much urine he made and seemed to be aware that he is being treated for CHF. Review of systems however are quite limited due to his current somnolent state. At times while answering questions, he was mumbling. Review of systems:As above. As above and otherwise unobtainable due to current mental status. Family history: Father had CAD. Social history:He never smoked. Quit consuming alcohol at least 20 years ago. He lives at home with his . He was unaccompanied in his hospital room. Allergies Allergy/AdvReac Type Severity Reaction Status Date / Time sulfamethoxazole Allergy Hives Verified 04/16/22 14:25 [From Bactrim] trimethoprim [From Bactrim] Allergy Hives Verified 04/16/22 14:25 Home Medications Medication Instructions Recorded Confirmed Type aspirin 81 mg tablet,delayed 81 mg PO BID 04/25/18 04/16/22 History release multivitamin 1 tab PO QAM 04/25/18 04/16/22 History guaifenesin 1,200 mg tablet, 1,200 mg PO BID 04/27/19 04/16/22 History extended release 12 hr (Mucinex) CPAP Machine #1 ea 07/17/19 03/23/22 Rx CPAP Supplies #1 ea 05/23/20 03/23/22 Rx nebulizers (Aeroneb Go Nebulizer) #1 ea 05/23/20 04/16/22 Rx Flutter Valve #1 ea 05/24/20 04/16/22 Rx ipratropium 0.5 mg-albuterol 3 mg 3 ml inhalation Q8H PRN shortness 11/25/20 04/16/22 Rx (2.5 mg base)/3 mL nebulization of breath or wheezing #270 mL soln fluticasone propionate 50 1 spray intranasal DAILY #9.9 grams 03/24/21 04/16/22 Rx mcg/actuation nasal spray,suspension (Allergy Relief (fluticasone)) isosorbide mononitrate 60 mg 60 mg PO DAILY 11/08/21 04/16/22 History tablet,extended release 24 hr umeclidinium 62.5 mcg-vilanterol 1 inh inhalation DAILY #60 ea 11/13/21 04/16/22 Rx 25 mcg/actuation powdr for inhalation (Anoro Ellipta) potassium chloride 10 mEq 20 meq PO .COMPLEX 01/14/22 04/16/22 History capsule,extended release ferrous sulfate 324 mg (65 mg 324 mg PO Q OTHER DAY #30 tabs 03/06/22 04/16/22 Rx iron) tablet,delayed release furosemide 40 mg tablet 40 mg PO DAILY #30 tabs 03/06/22 04/16/22 Rx empagliflozin 10 mg tablet 10 mg PO DAILY #90 tabs 03/10/22 04/16/22 Rx gabapentin 300 mg capsule 300 mg PO BID #180 caps 03/10/22 04/16/22 Rx insulin lispro protamine-lispro 50 unit subcut QPM 03/10/22 04/16/22 History 100 unit/mL (75-25) subcutaneous susp (Humalog Mix 75-25(U-100)Insuln) insulin lispro protamine-lispro 75 unit subcut QAM 03/10/22 04/16/22 History 100 unit/mL (75-25) subcutaneous susp (Humalog Mix 75-25(U-100)Insuln) metoprolol succinate 100 mg 100 mg PO DAILY #90 tabs 03/10/22 04/16/22 Rx tablet,extended release 24 hr rosuvastatin 40 mg tablet 40 mg PO DAILY #90 tabs 03/10/22 04/16/22 Rx dulaglutide 0.75 mg/0.5 mL 0.75 mg (0.5 mL) subcut .weekly #6 03/31/22 04/16/22 Rx subcutaneous pen injector mL (Trulicity) pantoprazole 40 mg tablet,delayed 40 mg PO BID #60 tabs 04/08/22 04/16/22 Rx release Patient History Medical History (Updated 04/23/22 @ 15:52 by Joaquín Murray MD) Anemia Aortic stenosis CAD (coronary artery disease) NON-OBSTRUCTIVE Cholelithiasis CKD (chronic kidney disease) baseline creatinine 1.6 Diabetes Diabetes mellitus, type 2 IDDM, +B/L FEET NEUROPATHY Dyspnea on exertion Gastro-esophageal reflux GERD (gastroesophageal reflux disease) Hearing deficit wears hearing aids Heart failure with preserved ejection fraction Hiatal hernia Hyperlipidemia Hypertension Impacted cerumen of left ear Lip ulcer Lung cancer Discharge summary dated 04/06/[address] Mari: HOSPITAL COURSE: This is a very nice 77-year-old male who was found to have a mass. It certainly appeared to be a carcinoma in the left upper lobe. We worked him up and felt he would be a candidate for a resection. Upon opening the lung, getting into the patient's chest with our robotic thoracoscopic resection on 03/30/2018, I was quite pleased. We took down the fissure quite nicely, took down all of the arterial branches but one and had the vein isolated as well as the bronchus and the patient had a tear of this remaining artery. We controlled this, we had to open the chest. We eventually got control and I repaired this primarily. The patient was extubated later that day. We had a significant blood loss. The patient was transfused. He also had a creatinine of 1.71 preop. This went as high as 3 in the subsequent days, but then came back down. He looked very good the day after surgery. He was requiring no oxygen and was eating a regular diet. We had some drainage from the chest tubes. We kept it in for a few days. There was no evidence of bleeding. Frankly I was quite pleased with him. He was ambulating in the hallway. He was moving his bowels, although he required some cathartics. Hemoglobin settled down in the low 8. We left it there after used 4 units total of blood. Creatinine came back down. He was making excellent urine. Creatinine was 2.51 the day before discharge. His incisions were all clean. We removed his chest tube after he had a small pneumothorax, a small amount of fluid and on 04/05/2018, I performed an aspiration of this and his pneumothorax had resolved. I was quite happy with this. The following day, I did not really see much of pneumothorax. He had a bit more fluid, but he was on room air, ambulating and I think it is best for him to go home. 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 I told her to call me directly should there be any issues. Quite frankly, I was quite pleased with him. His incisions were clean. He had very little in the way of pain. We did send him home on tramadol and told to resume his regular medications. I will see him back in the office next week. 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 Robotic L VATS converted to open procedure. Glidescope assisted PERFECTO insertion. During surgery there was significant bleeding from the pulmonary artery which forced a change to an open thoracotomy and was difficult to control. Fluids were given followed by blood and between the blood loss and manipulation in the chest there were some brief times when the eros was showing very little pulse. His CO2 tracing dropped but never went to nothing. Along with the fluids he did receive 0.5mg epi and 2 units of vasopressin in addition to occasional small doses of ephedrine and phenyleph rine. Blood loss was controlled and his vitals stabilized for the rest of the case. At the end of the procedure, we changed to a single lumen ETT and Dr Mari did a bronchoscopy which showed a little blood in the bronchi but basically clear. He is making urine, his vitals are stable, we are leaving him on the ventilator for the mean time to allow him to wake and make sure he is not acidotic. Labs and chest film are being done now - report to ICU MD. Surgical History History of cardiac cath [id number] NO STENTS [facility] [address] [facility] History of cholecystectomy 11/22/2014. DL x2. Glidescope #3 by ELIANA and 7.5 ETT inserted. Grade 3 view. History of colonoscopy History of lobectomy of lung left upper lobe 03/30/2018 [facility] S/P lobectomy of lung Family History Father Cardiac disorder Other No family history of bleeding disorder Social History Smoking Status: Former smoker Tobacco Type: Smokeless Tobacco (Dip or Chew) Second Hand Exposure: No; Hx Alcohol Use: No Hx Substance Use: No Preferred Language: French Communication Ability: Effective Visual Impairment: No Limitations Load Builder Required: No Beliefs That Will Affect Care: None marital status: Current Living Situation: Spouse current occupational status: retired How many Children do You have: 1 Other Information That Helps Us Care for You: No Feels Safe at Home: Yes Safety Concerns: Feels Safe At This Time Dental Care, Regularly: Yes Seatbelt Use: always Sunscreen Use: No Assistive Devices: None Physical Exam Physical Exam: Gen.: No acute distress. Somnolent on BiPAP. Arousable to loud verbal stimuli. HEENT: Anicteric sclera. Neck: Thick neck. Bilateral bruits vs radiation of cardiac murmur. Normal carotid upstrokes bilaterally. Cardiac: PMI was nonpalpable. No ventricular heave. Regular. Normal S1. Soft S2. 2/6 late peaking systolic ejection murmur heard best at right upper sternal border. No rubs or gallops. Pulmonary: Decreased breath sounds on anterior auscultation. Otherwise, clear. Abdomen: Soft, nontender, nondistended, with normoactive bowel sounds. No bruits noted. Extremities: 2+ radial pulses bilaterally. 2+ posterior tibialis pulses bilaterally. 2+ bilateral lower extremity pitting edema. No cyanosis. Results & Data ([facility]) Vital Signs (Past 12 Hours) Vital Signs Temp Pulse Pulse Resp BP BP Pulse Ox 04/23/22 14:11 68 04/23/22 14:11 04/23/22 14:20 71 20 94 04/23/22 14:11 36.4 C L 69 22 116/58 L 99 04/23/22 13:43 70 24 100/52 L 97 04/23/22 13:37 71 18 100/52 L 97 04/23/22 12:45 94/47 L 04/23/22 12:45 89 19 99 04/23/22 12:30 93 H 20 99 04/23/22 12:30 94/60 L 04/23/22 12:16 102 H 21 98 04/23/22 12:16 130/61 04/23/22 12:01 113 H 26 H 96 04/23/22 12:01 167/84 H 04/23/22 12:00 114 H 28 H 96 04/23/22 11:58 116 H 16 95 04/23/22 11:58 154/88 H 04/23/22 12:12 104 H 23 167/84 H 98 04/23/22 12:00 114 H 26 H 167/84 H 96 04/23/22 11:45 122 H 30 H 100 04/23/22 11:30 122 H 32 H 86 L 04/23/22 11:19 117 H 31 H 96 04/23/22 11:36 36.3 C L 04/23/22 11:30 122 H 32 H 173/106 H 86 L 04/23/22 11:15 115 H 28 H 99 04/23/22 11:14 121 H 20 95 04/23/22 11:14 95 04/23/22 11:14 117 H 29 H 193/136 H 95 O2 Del Method FiO2 04/23/22 14:11 04/23/22 14:11 BiPAP 30 04/23/22 14:20 30 04/23/22 14:11 CPAP 30 04/23/22 13:43 BiPAP 04/23/22 13:37 BiPAP 04/23/22 12:45 04/23/22 12:45 04/23/22 12:30 04/23/22 12:30 04/23/22 12:16 04/23/22 12:16 04/23/22 12:01 04/23/22 12:01 04/23/22 12:00 04/23/22 11:58 04/23/22 11:58 04/23/22 12:12 BiPAP 04/23/22 12:00 BiPAP 04/23/22 11:45 BiPAP 04/23/22 11:30 BiPAP 04/23/22 11:19 BiPAP 04/23/22 11:36 04/23/22 11:30 BiPAP 04/23/22 11:15 40 04/23/22 11:14 BiPAP 04/23/22 11:14 BiPAP 04/23/22 11:14 BiPAP Intake & Output 04/21/22 04/22/22 04/23/22 04/24/22 06:59 06:59 06:59 06:59 Intake Total 0 / 0 Output Total 650 / 650 Balance -650 / -650 Weight 218 lb 14.704 oz Laboratory Results Laboratory Results - last 24 hr 04/23/22 04/23/22 04/23/22 11:08 11:39 11:41 WBC RBC Hgb Hct MCV MCH MCHC RDW Std Deviation RDW Coeff of Mac Plt Count MPV Immature Gran % (Auto) Neut % (Auto) Lymph % (Auto) [place] % (Auto) Eos % (Auto) Baso % (Auto) Neut # (Auto) Lymph # (Auto) [place] # (Auto) Eos # (Auto) Baso # (Auto) Immature Gran # (Auto) PT INR APTT PTT Ratio ABG pH ABG pCO2 ABG pO2 ABG HCO3 ABG O2 Saturation ABG Base Excess Shmuel Test VBG pH VBG pCO2 VBG pO2 VBG HCO3 VBG O2 Saturation VBG Base Excess Oxygen Given Sodium Potassium Chloride Carbon Dioxide Anion Gap BUN Creatinine Est Cr Clr Drug Dosing Est GFR ( Amer) Est GFR (Non-Af Amer) BUN/Creatinine Ratio Glucose Lactate Calcium Magnesium Total Bilirubin Direct Bilirubin AST ALT Alkaline Phosphatase Troponin I High Sens B-Natriuretic Peptide Total Protein Albumin Procalcitonin < 0.05 Urine Color Yellow Urine Appearance Clear Urine pH 5.0 Ur Specific Haw[place]orn 1.024 Urine Protein Negative Urine Glucose (UA) 3+ H Urine Ketones Negative Urine Blood Negative Urine Nitrite Negative Urine Bilirubin Negative Urine Urobilinogen Negative Ur Leukocyte Esterase 1+ H Urine WBC (Auto) 5-10 H Urine RBC (Auto) 0-4 U Hyaline Cast (Auto) 1-5 U Epithel Cells (Auto) >30 H Urine Bacteria (Auto) Negative Adenovirus (PCR) Not Detected B. pertussis DNA (PCR) Not Detected B.parapertussis DNA PCR Not Detected C. pneumoniae DNA (PCR) Not Detected Coronavirus OC43 (PCR) Not Detected Coronavirus HKU1 (PCR) Not Detected Coronavirus 229E (PCR) Not Detected SARS-CoV-2 (PCR) Not Detected Coronavirus NL63 (PCR) Not Detected Human Metapneumovir PCR Not Detected Influenza Type A (PCR) Not Detected Influenza Type B (PCR) Not Detected M. pneumoniae (PCR) Not Detected Parainfluenza 1 (PCR) Not Detected Parainfluenza 2 (PCR) Not Detected Parainfluenza 3 (PCR) Not Detected Parainfluenza 4 (PCR) Not Detected RSV (PCR) Not Detected Entero/Rhino (PCR) Not Detected 04/23/22 04/23/22 04/23/22 11:41 11:54 11:54 WBC 17.09 H RBC 4.51 L Hgb 12.7 L Hct 43.1 MCV 95.6 MCH 28.2 MCHC 29.5 L RDW Std Deviation 64.6 H RDW Coeff of Mac 18.6 H Plt Count 390 MPV 10.2 Immature Gran % (Auto) 0.4 Neut % (Auto) 79.2 Lymph % (Auto) 12.8 [place] % (Auto) 5.7 Eos % (Auto) 1.2 Baso % (Auto) 0.7 Neut # (Auto) 13.53 H Lymph # (Auto) 2.19 [place] # (Auto) 0.97 H Eos # (Auto) 0.21 Baso # (Auto) 0.12 Immature Gran # (Auto) 0.07 H PT 10.5 INR 1.0 APTT 25.1 PTT Ratio 0.9 ABG pH ABG pCO2 ABG pO2 ABG HCO3 ABG O2 Saturation ABG Base Excess Shmuel Test VBG pH VBG pCO2 VBG pO2 VBG HCO3 VBG O2 Saturation VBG Base Excess Oxygen Given Sodium 142 Potassium 4.6 Chloride 107 Carbon Dioxide 27 Anion Gap 8 BUN 21 Creatinine 2.20 H Est Cr Clr Drug Dosing 31.1 Est GFR ( Amer) 31.8 Est GFR (Non-Af Amer) 27.5 BUN/Creatinine Ratio 9.5 L Glucose 210 H Lactate Calcium 9.3 Magnesium 2.4 Total Bilirubin 0.7 Direct Bilirubin 0.2 AST 21 ALT 16 Alkaline Phosphatase 64 Troponin I High Sens 60.6 H* D B-Natriuretic Peptide Total Protein 8.2 Albumin 4.6 Procalcitonin Urine Color Urine Appearance Urine pH Ur Specific [place] Urine Protein Urine Glucose (UA) Urine Ketones Urine Blood Urine Nitrite Urine Bilirubin Urine Urobilinogen Ur Leukocyte Esterase Urine WBC (Auto) Urine RBC (Auto) U Hyaline Cast (Auto) U Epithel Cells (Auto) Urine Bacteria (Auto) Adenovirus (PCR) B. pertussis DNA (PCR) B.parapertussis DNA PCR C. pneumoniae DNA (PCR) Coronavirus OC43 (PCR) Coronavirus HKU1 (PCR) Coronavirus 229E (PCR) SARS-CoV-2 (PCR) Coronavirus NL63 (PCR) Human Metapneumovir PCR Influenza Type A (PCR) Influenza Type B (PCR) M. pneumoniae (PCR) Parainfluenza 1 (PCR) Parainfluenza 2 (PCR) Parainfluenza 3 (PCR) Parainfluenza 4 (PCR) RSV (PCR) Entero/Rhino (PCR) 04/23/22 04/23/22 04/23/22 11:54 11:54 11:54 WBC RBC Hgb Hct MCV MCH MCHC RDW Std Deviation RDW Coeff of Mac Plt Count MPV Immature Gran % (Auto) Neut % (Auto) Lymph % (Auto) [place] % (Auto) Eos % (Auto) Baso % (Auto) Neut # (Auto) Lymph # (Auto) [place] # (Auto) Eos # (Auto) Baso # (Auto) Immature Gran # (Auto) PT INR APTT PTT Ratio ABG pH ABG pCO2 ABG pO2 ABG HCO3 ABG O2 Saturation ABG Base Excess Shmuel Test VBG pH 7.24 L VBG pCO2 63 H VBG pO2 79 VBG HCO3 27 VBG O2 Saturation 94.5 VBG Base Excess -1.7 Oxygen Given Sodium Potassium Chloride Carbon Dioxide Anion Gap BUN Creatinine Est Cr Clr Drug Dosing Est GFR ( Amer) Est GFR (Non-Af Amer) BUN/Creatinine Ratio Glucose Lactate 1.5 Calcium Magnesium Total Bilirubin Direct Bilirubin AST ALT Alkaline Phosphatase Troponin I High Sens B-Natriuretic Peptide 735 H Total Protein Albumin Procalcitonin Urine Color Urine Appearance Urine pH Ur Specific [place] Urine Protein Urine Glucose (UA) Urine Ketones Urine Blood Urine Nitrite Urine Bilirubin Urine Urobilinogen Ur Leukocyte Esterase Urine WBC (Auto) Urine RBC (Auto) U Hyaline Cast (Auto) U Epithel Cells (Auto) Urine Bacteria (Auto) Adenovirus (PCR) B. pertussis DNA (PCR) B.parapertussis DNA PCR C. pneumoniae DNA (PCR) Coronavirus OC43 (PCR) Coronavirus HKU1 (PCR) Coronavirus 229E (PCR) SARS-CoV-2 (PCR) Coronavirus NL63 (PCR) Human Metapneumovir PCR Influenza Type A (PCR) Influenza Type B (PCR) M. pneumoniae (PCR) Parainfluenza 1 (PCR) Parainfluenza 2 (PCR) Parainfluenza 3 (PCR) Parainfluenza 4 (PCR) RSV (PCR) Entero/Rhino (PCR) 04/23/22 04/23/22 14:14 15:17 WBC RBC Hgb Hct MCV MCH MCHC RDW Std Deviation RDW Coeff of Mac Plt Count MPV Immature Gran % (Auto) Neut % (Auto) Lymph % (Auto) [place] % (Auto) Eos % (Auto) Baso % (Auto) Neut # (Auto) Lymph # (Auto) [place] # (Auto) Eos # (Auto) Baso # (Auto) Immature Gran # (Auto) PT INR APTT PTT Ratio ABG pH 7.41 ABG pCO2 48 H ABG pO2 83 ABG HCO3 30 H ABG O2 Saturation 97.3 H ABG Base Excess 4.8 H Shmuel Test Pos VBG pH 7.36 VBG pCO2 53 H VBG pO2 52 VBG HCO3 30 VBG O2 Saturation 78.0 VBG Base Excess 3.2 Oxygen Given 30% Sodium Potassium Chloride Carbon Dioxide Anion Gap BUN Creatinine Est Cr Clr Drug Dosing Est GFR ( Amer) Est GFR (Non-Af Amer) BUN/Creatinine Ratio Glucose Lactate Calcium Magnesium Total Bilirubin Direct Bilirubin AST ALT Alkaline Phosphatase Troponin I High Sens B-Natriuretic Peptide Total Protein Albumin Procalcitonin Urine Color Urine Appearance Urine pH Ur Specific [place] Urine Protein Urine Glucose (UA) Urine Ketones Urine Blood Urine Nitrite Urine Bilirubin Urine Urobilinogen Ur Leukocyte Esterase Urine WBC (Auto) Urine RBC (Auto) U Hyaline Cast (Auto) U Epithel Cells (Auto) Urine Bacteria (Auto) Adenovirus (PCR) B. pertussis DNA (PCR) B.parapertussis DNA PCR C. pneumoniae DNA (PCR) Coronavirus OC43 (PCR) Coronavirus HKU1 (PCR) Coronavirus 229E (PCR) SARS-CoV-2 (PCR) Coronavirus NL63 (PCR) Human Metapneumovir PCR Influenza Type A (PCR) Influenza Type B (PCR) M. pneumoniae (PCR) Parainfluenza 1 (PCR) Parainfluenza 2 (PCR) Parainfluenza 3 (PCR) Parainfluenza 4 (PCR) RSV (PCR) Entero/Rhino (PCR) Diagnostic Findings Catheterization report and echo report reviewed as noted above in HPI. ECG personally reviewed from 04/23/2022 at 11:11 a.m.: Sinus tachycardia 114 beats per minute. LVH with repolarization abnormality. Chest x-ray personally reviewed 04/23/2022: Vascular congestion. Left pleural effusion. Radiology interprets also as diffuse airspace opacities. Medications Administered Current Inpatient Medications Acetaminophen (Acetaminophen 325 Mg Tab) 650 mg PO Q4H PRN PRN Reason: Pain or Fever Stop: 05/23/22 14:25 Albuterol (Albut/Ipratrop 3mg/0.5mg Neb 3 Ml Vial) 3 ml INH Q8R PRN; Protocol PRN Reason: shortness of breath or wheezing Stop: 05/23/22 14:25 Dextrose (Dextrose 50% 50 Ml Syringe) 25 - 50 ml IV UD PRN; Protocol PRN Reason: Hypoglycemia Protocol Stop: 05/23/22 14:25 Ferrous Sulfate (Ferrous Sulfate 325 Mg Tab) 325 mg PO Q2D SHANTANU Stop: 05/24/22 08:59 Fluticasone Propionate (Fluticasone Propionate Na Spr 16 Gm Btl) 1 sprays NA DAILY SHANTANU Stop: 05/24/22 08:59 Furosemide (Furosemide 40 Mg/4 Ml Vial) 40 mg IV BID SHANTANU Stop: 05/23/22 20:59 Gabapentin (Gabapentin 300 Mg Cap) 300 mg PO BID SHANTANU Stop: 05/23/22 20:59 Glucagon (Glucagon For Inj 1 Mg Vial) 1 mg SQ UD PRN; Protocol PRN Reason: Hypoglycemia Protocol Stop: 05/23/22 14:25 Glucose (Glucose 40% Gel 15 Gm Tube) 15 - 30 gm PO UD PRN; Protocol PRN Reason: Hypoglycemia Protocol Stop: 05/23/22 14:25 Glucose (Glucose 10 Tab/Tube) 4 - 8 tab PO UD PRN; Protocol PRN Reason: Hypoglycemia Treatment Stop: 05/23/22 14:25 Guaifenesin (Guaifenesin 600 Mg Tabcr) 1,200 mg PO BID SHANTANU Stop: 05/23/22 20:59 Heparin Sodium (Porcine) (Heparin Sod 5,000 Unit/0.5 Ml Vial) 5,000 units SQ Q12 SHANTANU Stop: 05/23/22 20:59 Insulin Aspart (Insulin Aspart Per Unit) 0 units SC ACHS SHANTANU Stop: 05/23/22 16:29 Insulin Glargine (Lantus Per Unit Charge) 15 units SQ BID SHANTANU Stop: 05/23/22 20:59 Isosorbide Mononitrate (Isosorbide [place] Extended Rel 60 Mg Tabcr) 60 mg PO DAILY SHANTANU Stop: 05/24/22 08:59 Metoprolol Succinate (Metoprolol Succ 50mg Ext Rel Tab) 100 mg PO DAILY SHANTANU Stop: 05/24/22 08:59 Miscellaneous (Carbohydrates For Hypoglycemia ) 15 - 30 gm PO UD PRN PRN Reason: Hypoglycemia Protocol Stop: 05/23/22 14:25 Multivitamins (Multivitamin Tab) 1 tab PO QAM SHANTANU Stop: 05/24/22 08:59 Ondansetron HCl (Ondansetron Inj 2 Mg/Ml 2 Ml Vial) 4 mg IV Q6H PRN PRN Reason: Nausea Stop: 05/23/22 14:25 Pantoprazole Sodium (Pantoprazole 40 Mg Tab) 40 mg PO BID SHANTANU Stop: 05/23/22 20:59 Polyethylene Glycol (Polyethylene (Miralax) 17 Gm Pack) 17 gm PO DAILY PRN PRN Reason: Constipation Stop: 05/23/22 14:25 Potassium Chloride (Potassium Chloride Crtab 20 Meq Tabcr) 20 meq PO Q2D SHANTANU Stop: 05/24/22 08:59 Rosuvastatin Calcium (Rosuvastatin Calcium 20 Mg Tab) 40 mg PO DAILY SHANTANU Stop: 05/24/22 08:59 Umeclidinium/Vilanterol (Umeclidinium/Vilanterol 62.5/25mcg 7 Puffs/Inhaler) 1 puffs INH DAILY SHANTANU Stop: 05/24/22 08:59 PG Care Time/CCT Total # of Minutes Spent Total Time Spent with Patient: Total time spent is greater than 50% in coordination of care (as documented) at patient's floor/unit and/or counseling patient: Coding Level of Care Code 02413 Initial Inpt Care Lvl 3 Diagnoses Acute on chronic heart failure with preserved ejection fraction (HFpEF) I50.33 Aortic stenosis I35.0 Elevated troponin R77.8 Acute respiratory failure with hypoxia J96.01 CAD (coronary artery disease) I25.10 Hypertension I10 Dyslipidemia E78.5
[2022-04-23 15:38] LABS: Base Excess ABG 4.8 mEq/L (-9-1.8); HCO3 ABG 30 mmol/L (19-24); Oxygen Saturation ABG 97.3 % (90-95); PCO2 ABG 48 mmHg (35-46); PO2 ABG 83 mmHg (80-95); pH ABG 7.41 (7.35-7.45)
[2022-04-23 15:52] LABS: Allen Test Pos (Pos)
--- NOTE | 2022-04-23 16:36 | XCELERA ---
[id number]
[2022-04-23] MEDS: INSULIN ASPART PER UNIT SC SCH ×2 (17:04→21:04)
[2022-04-23] MEDS ORDERED: Flu Vaccine-High Dose (Fluzone-HD) PF 65+ 0.7mL SYR IM ONE (18:00)
[2022-04-23] MEDS ORDERED: PNEUMOCOCCAL Polysaccharide Vaccine 25mcg/0.5mL vial/Syr IM ONE (18:00)
[2022-04-23] MEDS: LANTUS PER UNIT CHARGE SQ SCH (21:50)
--- NOTE | 2022-04-23 21:54 | Electrocardiogram Report ---
Test Reason : Blood Pressure : / mmHG Vent. Rate : 114 BPM Atrial Rate : 114 BPM P-R Int : 170 ms QRS Dur : 100 ms QT Int : 336 ms P-R-T Axes : 050 003 238 degrees QTc Int : 463 ms Poor data quality, interpretation may be adversely affected Sinus tachycardia Left ventricular hypertrophy with repolarization abnormality Abnormal ECG When compared with ECG of 18-MAR-2022 06:02, No significant change Confirmed by Joaquín Murray ([id number]) on 04/23/2022 9:54:26 PM Referred By: Confirmed By:Joaquín Murray
[2022-04-23] MEDS: FUROSEMIDE 40 MG/4 ML VIAL IV SCH (22:01)
[2022-04-23] MEDS: HEPARIN SOD 5,000 UNIT/0.5 ML VIAL SQ SCH (22:04)
[2022-04-23] MEDS: guaiFENesin 600 MG TABCR PO SCH (22:04)
[2022-04-23] MEDS: GABAPENTIN 300 MG CAP PO SCH (22:04)
[2022-04-23] MEDS: PANTOprazole 40 MG TAB PO SCH (22:05)
--- NOTE | 2022-04-24 07:16 | Hospitalist Progress Note ---
Date of Service April 24, 2022 Assessment & Plan (1) Acute on chronic heart failure with preserved ejection fraction (HFpEF): Plan: Juancho Bronson is a 81 y/o male who presented to the ED on 04/23 for shortness of breath. His PMH includes s/p lobectomy, HFpEF, aortic stenosis, T2DM, CKD. Patient has responded well to diuresing today, patient admits he has not been compliant with salt content lately. Case has been discussed with [facility] (Dr. Barnett), awaiting TAVR on May 05. Plan for now is to keep him at least through the weekend in hopes to prevent a readmission prior to his TAVR procedure. Acute on Chronic Heart Failure with Preserved Ejection Fraction (HFpEF) -BNP at admission: 735 -CXR: pulmonary vascular congestion, small left pleural effusion -Heart failure likely exacerbated by known severe aortic stenosis -Cardiology consulted, appreciate recommendations -Fluid status: appears hypervolemic -Continue strict I's&O's, daily weights -Continue diuresing, IV Lasix 40mg IV BID Acute Respiratory Failure with Hypoxia - Secondary to severe Acute Respiratory Acidosis - Hypoxia due to severe , mixed restrictive/obstructive lung disease. - BIPAP. Initial VBG 7.24/63/79/27. Repeating one hour after BIPAP initiated. - Patient is somnolent and not moving air incredibly well, could be due to receiving lorazepam in ED as patient initially presented quite anxious. Has underlying mixed restrictive/obstructive lung dz. - Strict wishes previously expressed by patient that he would not want to be intubated under any circumstances. Aortic Stenosis -Severe, recently evaluated for TAVR at [facility] with Dr. Barnett (procedure date planned for 05/05/22) -Echo from 04/23: severe , EF: 50-55% Acute Kidney Injury Superimposed on CKD -Cr 2.20, baseline 1.5-1.7 -Likely due to hypoperfusion from -Will continue to monitor on daily labs, avoid nephrotoxins Elevated Troponin - Elevated to 3200, Likely in the setting of severe and hypoxia to 60s at home, this does not represent ACS. His EKG appears similar to previous. - EKG with any reports of CP or anginal equivalent symptoms. Nonocclusive Coronary Atherosclerosis of [place] Coronary Artery - Continue ASA, statin, Ranexa; metoprolol on hold given low BPs while diuresing. - EKG with similar ST depressions in lateral leads that have been seen previously. Diabetes Mellitus, Type 2 - Lantus 15 u BID with SSI (25 CF, 8 CR) - Accuhecks ACHS/q6h while NPO. 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 - Obstructive due to prior tobacco chew, chemical exposure at work - Continue Anoro daily, albuterol prn. Diet: Low sodium diet DVT PPx: SCDs and heparin Code Status: DNR/DNI (2) Aortic stenosis: (3) Elevated troponin: (4) Acute respiratory failure with hypoxia: (5) Acute respiratory acidosis: (6) Acute kidney injury superimposed on CKD: (7) Anemia: (8) Nonocclusive coronary atherosclerosis of [place] coronary artery: (9) Diabetes mellitus, type 2: (10) GERD (gastroesophageal reflux disease): (11) Mixed restrictive and obstructive lung disease: (12) Obstructive sleep apnea syndrome: (13) S/P lobectomy of lung: Admission and Anticipated Discharge Date Admission Date: April 23, 2022 Supervising Physician Co-Signing Physician Notes I personally examined the patient and verified all mccrary points of history and exam, discussed case, and agree with decision making with Dr Brewer. Feeling better breathing better. Not yet back to baseline. Cardiology called Erlinda is now set up for TAVR on 05/05. Vitals noted, in general he is awake and alert pleasant no distress. HEENT normocephalic atraumatic mucous membranes moist. Breathing unlabored no accessory muscle use good effort. Skin shows no rashes no pallor or icterus. Neuro without focal deficits. Acute on chronic HFpEFrelated to severe aortic stenosisdiurese. Fortunately cardiology was able to get his TAVR appointment moved to sooner so hopefully once he no longer has the bottleneck of his aortic valve creating HFpEF he should do better. Otherwise as above Subjective Patient was seen and examined at bedside. Juancho is resting in his bed. He required BiPAP overnight but is comfortable on room air at time of encounter. He denies any current cough, SOB at rest, chest pain or pressure, N/V, dizziness. Review of Systems Review of Systems: As per HPI Physical Exam Neck: normal visual inspection Respiratory: normal respiratory effort; no respiratory distress decreased lung sounds Cardiovascular: Rate/Rhythm: regular rate and regular rhythm Heart Sounds: + murmur bilateral lower extremity edema Gastrointestinal (Abdomen): normal bowel sounds, soft, nontender, no hepatosplenomegaly Skin: no rashes, warm and dry Psychiatric: A+Ox3, euthymic affect Results & Data Results & Data ([facility]) Vital Signs (Past 12 Hours) Vital Signs Temp Pulse Pulse Resp BP Pulse Ox O2 Del Method 04/24/22 02:51 36.6 C 63 16 116/64 98 BiPAP 04/24/22 03:35 63 17 98 04/23/22 22:10 68 04/23/22 19:45 Nasal Cannula 04/23/22 23:46 36.8 C 63 16 114/65 98 BiPAP 04/23/22 22:48 63 19 98 04/23/22 19:44 36.4 C L 67 16 104/62 99 BiPAP O2 Flow Rate FiO2 04/24/22 02:51 04/24/22 03:35 30 04/23/22 22:10 04/23/22 19:45 2 04/23/22 23:46 04/23/22 22:48 30 04/23/22 19:44 Resident Activity Tracking Resident Involvement: Resident Care Provided Care Provided: Adult Hospital Medicine
[2022-04-24 07:50] LABS: Basophils # (auto) 0.05 K/uL (0-0.2); Basophils % (auto) 0.5 %; Eosinophils # (auto) 0.13 K/uL (0-0.50); Eosinophils % (auto) 1.4 %; Hematocrit (blood only) 36.8 % (40.1-51.0); Hemoglobin 11.1 g/dl (14.0-18.0); Immature Granulocytes # (auto) 0.03 K/uL (0.00-0.02); Immature Granulocytes % (auto) 0.3 %; Lymphocytes # (auto) 1.47 K/uL (1.2-3.4); Lymphocytes % (auto) 15.3 %; Mean Corpuscular Hgb Conc 30.2 g/dL (32.0-36.0); Mean Corpuscular Volume 92.7 fL (80.0-100.0); Mean Platelet Volume 10.4 fL (9.4-12.4); Monocytes # (auto) 0.81 K/uL (0.24-0.82); Monocytes % (auto) 8.4 %; Neutrophils # (auto) 7.12 K/uL (1.4-6.5); Neutrophils % (auto) 74.1 %; Platelet Count 279 K/uL (130-400); RDW Coefficient of Variation 18.1 % (11.5-14.5); RDW Standard Deviation 61.6 fL (36.4-46.3); Red Blood Count 3.97 M/uL (4.63-6.08); White Blood Count 9.61 K/ul (4.8-10.8)
[2022-04-24 08:25] LABS: BUN Creatinine Ratio 12.6 (10-20); Calcium 9.2 mg/dl (8.5-10.1); Creatinine Clr Calc Pharmacy 34.5 ml/min; Est GFR (Non-African American) 32.8 ml/min; Magnesium 2.3 mg/dl (1.7-2.4); Potassium 3.9 mmol/L (3.5-5.1); Troponin I High Sensitivity 3242.3 pg/ml (0-20)
[2022-04-24] MEDS: INSULIN ASPART PER UNIT SC SCH ×4 (08:55→20:44)
[2022-04-24] MEDS: ISOSORBIDE MONO EXTENDED REL 60 MG TABCR PO SCH (08:56)
[2022-04-24] MEDS: PANTOprazole 40 MG TAB PO SCH ×2 (08:56→20:43)
[2022-04-24] MEDS: MULTIVITAMIN TAB PO SCH (08:56)
[2022-04-24] MEDS: guaiFENesin 600 MG TABCR PO SCH ×2 (08:57→20:42)
[2022-04-24] MEDS: ASPIRIN 81 MG ECTAB PO SCH (08:57)
[2022-04-24] MEDS: POTASSIUM CHLORIDE CRTAB 20 MEQ TABCR PO SCH (08:57)
[2022-04-24] MEDS: METOPROLOL SUCC 50MG EXT REL TAB PO SCH (08:57)
[2022-04-24] MEDS: GABAPENTIN 300 MG CAP PO SCH ×2 (08:57→20:43)
[2022-04-24] MEDS: ROSUVASTATIN CALCIUM 20 MG TAB PO SCH (08:57)
[2022-04-24] MEDS: HEPARIN SOD 5,000 UNIT/0.5 ML VIAL SQ SCH ×2 (08:58→20:43)
[2022-04-24] MEDS: FUROSEMIDE 40 MG/4 ML VIAL IV SCH ×2 (08:58→20:44)
[2022-04-24] MEDS: FLUTICASONE PROPIONATE NA SPR 16 GM BTL SCH (08:58)
[2022-04-24] MEDS: FERROUS SULFATE 325 MG TAB PO SCH (08:58)
[2022-04-24] MEDS: UMECLIDINIUM/VILANTEROL 62.5/25MCG 7 PUFFS/INHALER INH SCH (08:59)
[2022-04-24] MEDS: LANTUS PER UNIT CHARGE SQ SCH ×2 (09:17→20:44)
--- NOTE | 2022-04-24 14:15 | Cardiology Progress Note ---
Date of Service April 24, 2022 Assessment & Plan (1) Acute on chronic heart failure with preserved ejection fraction (HFpEF): (2) Aortic stenosis: (3) Elevated troponin: (4) Acute respiratory failure with hypoxia: (5) CAD (coronary artery disease): (6) Hypertension: (7) Dyslipidemia: Plan ASSESSMENT/PLAN: 1. Acute on chronic HFpEF: Volume status much improved with initial diuresis. Still mildly hypervolemic. CHF exacerbation likely due to underlying severe aortic stenosis and also significant sodium consumption home (potato chips, potato soup, etc.). Continue Lasix IV. May need to reduce to once daily tomorrow versus p.o. depending on volume status at that point. Strict I&Os. Daily weights. We discussed the importance of a low-sodium diet. Less than 2000 mg sodium per day. 2. Aortic stenosis: Severe. Contacted Dr. Barnett of [facility]. He has been approved for TAVR with tentative date 05/05/2022. He was made aware that he was hospitalized again. Unfortunately, there is no availability next week. He has asked that he be contacted when Mr. Bronson is ready for discharge. Will passed this information along to Dr. Francois, who will be covering [facility] cardiology for the next week. 3. Elevated troponin: Likely due to demand ischemia in the setting of severe aortic stenosis with acute CHF and respiratory failure with hypoxia. Nonobstructive CAD on recent cardiac catheterization. 4. Acute respiratory failure with hypoxia: Likely due to CHF in the setting of mixed restrictive and obstructive lung disease and previous lobectomy. Has been followed by pulmonology as an outpatient. Much improved with diuresis. 5. CAD: Nonobstructive. Recommend aspirin 81 mg daily. No angina. Continue statin therapy and beta-angela. Can discontinue nitrate therapy, especially in the setting of severe aortic stenosis. 6. Dyslipidemia: Continue high-intensity statin therapy. 7. Hypertension: Mostly normotensive with episodes of mild hypotension, but asymptomatic. If blood pressure remains mildly hypotensive, would consider reducing intravenous diuretic to once daily. 8. Disposition: Dr. Francois will be available to assist with Cardiology input throughout the next week as I will be away from the hospital. Patient care will be discussed with him today. Patient care communicated with primary hospitalist service, Dr. Poe. On discharge, should follow-up with Dr. Garland, her primary graphic design teacher. TAVR pending at [facility]. Admission and Anticipated Discharge Date Admission Date: April 23, 2022 Subjective Patient feels much better today. He was on room air during visit. He denies chest pain, shortness of breath, syncope, near-syncope, palpitations, or bleeding. He admits that he has been consuming foods high in sodium content such as potato chips and potato soup. Just before his decompensation, he consumed potato soup and developed chest discomfort with shortness of breath. His then called for EMS. He was unaccompanied in his hospital room. Physical Exam Physical Exam: Gen.: No acute distress. Somnolent on BiPAP. Arousable to loud verbal stimuli. HEENT: Anicteric sclera. Neck: Thick neck. Mild hepatic jugular reflux. Cardiac: PMI was nonpalpable. No ventricular heave. Regular. Normal S1. Soft S2. 2/6 late peaking systolic ejection murmur heard best at right upper sternal border. No rubs or gallops. Pulmonary: Decreased breath sounds but otherwise clear to auscultation bilaterally. Abdomen: Soft, nontender, nondistended, with normoactive bowel sounds. No bruits noted. Extremities: 2+ radial pulses bilaterally. 2+ posterior tibialis pulses bilaterally. 1+ bilateral lower extremity pitting edema. No cyanosis. Results & Data ([facility]) Vital Signs (Past 12 Hours) Vital Signs Temp Pulse Pulse Resp BP Pulse Ox O2 Del Method 04/24/22 11:25 36.7 C 64 18 93/53 L 92 Room Air 04/24/22 11:11 Room Air 04/24/22 08:00 67 04/24/22 08:00 36.7 C 71 19 121/56 L 97 Nasal Cannula 04/24/22 02:51 36.6 C 63 16 116/64 98 BiPAP 04/24/22 03:35 63 17 98 FiO2 04/24/22 11:25 04/24/22 11:11 04/24/22 08:00 04/24/22 08:00 04/24/22 02:51 04/24/22 03:35 30 Intake & Output 04/22/22 04/23/22 04/24/22 04/25/22 06:59 06:59 06:59 06:59 Intake Total 0 / 0 Output Total 3850 / 3850 Balance -3850 / -3850 Weight 208 lb 5.389 oz Laboratory Results Laboratory Results - last 24 hr 04/23/22 04/23/22 04/23/22 14:14 15:17 16:38 WBC RBC Hgb Hct MCV MCH MCHC RDW Std Deviation RDW Coeff of Mac Plt Count MPV Immature Gran % (Auto) Neut % (Auto) Lymph % (Auto) [place] % (Auto) Eos % (Auto) Baso % (Auto) Neut # (Auto) Lymph # (Auto) [place] # (Auto) Eos # (Auto) Baso # (Auto) Immature Gran # (Auto) ABG pH 7.41 ABG pCO2 48 H ABG pO2 83 ABG HCO3 30 H ABG O2 Saturation 97.3 H ABG Base Excess 4.8 H Shmuel Test Pos VBG pH 7.36 VBG pCO2 53 H VBG pO2 52 VBG HCO3 30 VBG O2 Saturation 78.0 VBG Base Excess 3.2 Oxygen Given 30% Sodium Potassium Chloride Carbon Dioxide Anion Gap BUN Creatinine Est Cr Clr Drug Dosing Est GFR ( Amer) Est GFR (Non-Af Amer) BUN/Creatinine Ratio Glucose POC Glucose 169 H Calcium Magnesium Troponin I High Sens 04/23/22 04/24/22 04/24/22 20:58 07:05 07:23 WBC 9.61 RBC 3.97 L Hgb 11.1 L Hct 36.8 L MCV 92.7 MCH 28.0 MCHC 30.2 L RDW Std Deviation 61.6 H RDW Coeff of Mac 18.1 H Plt Count 279 MPV 10.4 Immature Gran % (Auto) 0.3 Neut % (Auto) 74.1 Lymph % (Auto) 15.3 [place] % (Auto) 8.4 Eos % (Auto) 1.4 Baso % (Auto) 0.5 Neut # (Auto) 7.12 H Lymph # (Auto) 1.47 [place] # (Auto) 0.81 Eos # (Auto) 0.13 Baso # (Auto) 0.05 Immature Gran # (Auto) 0.03 H ABG pH ABG pCO2 ABG pO2 ABG HCO3 ABG O2 Saturation ABG Base Excess Shmuel Test VBG pH VBG pCO2 VBG pO2 VBG HCO3 VBG O2 Saturation VBG Base Excess Oxygen Given Sodium Potassium Chloride Carbon Dioxide Anion Gap BUN Creatinine Est Cr Clr Drug Dosing Est GFR ( Amer) Est GFR (Non-Af Amer) BUN/Creatinine Ratio Glucose POC Glucose 113 H 145 H Calcium Magnesium Troponin I High Sens 04/24/22 04/24/22 07:23 11:07 WBC RBC Hgb Hct MCV MCH MCHC RDW Std Deviation RDW Coeff of Mac Plt Count MPV Immature Gran % (Auto) Neut % (Auto) Lymph % (Auto) [place] % (Auto) Eos % (Auto) Baso % (Auto) Neut # (Auto) Lymph # (Auto) [place] # (Auto) Eos # (Auto) Baso # (Auto) Immature Gran # (Auto) ABG pH ABG pCO2 ABG pO2 ABG HCO3 ABG O2 Saturation ABG Base Excess Shmuel Test VBG pH VBG pCO2 VBG pO2 VBG HCO3 VBG O2 Saturation VBG Base Excess Oxygen Given Sodium 142 Potassium 3.9 Chloride 103 Carbon Dioxide 32 Anion Gap 7 BUN 24 H Creatinine 1.90 H D Est Cr Clr Drug Dosing 34.5 Est GFR ( Amer) 38.0 Est GFR (Non-Af Amer) 32.8 BUN/Creatinine Ratio 12.6 Glucose 118 H POC Glucose 132 H Calcium 9.2 Magnesium 2.3 Troponin I High Sens 3242.3 H* D Diagnostic Findings Telemetry personally reviewed: Sinus rhythm. No arrhythmia. Medications Administered Current Inpatient Medications Acetaminophen (Acetaminophen 325 Mg Tab) 650 mg PO Q4H PRN PRN Reason: Pain or Fever Stop: 05/23/22 14:25 Albuterol (Albut/Ipratrop 3mg/0.5mg Neb 3 Ml Vial) 3 ml INH Q8R PRN; Protocol PRN Reason: shortness of breath or wheezing Stop: 05/23/22 14:25 Aspirin (Aspirin 81 Mg Ectab) 81 mg PO QAM SHANTANU Stop: 05/24/22 08:59 Last Admin: 04/24/22 08:57 Dose: 81 mg Dextrose (Dextrose 50% 50 Ml Syringe) 25 - 50 ml IV UD PRN; Protocol PRN Reason: Hypoglycemia Protocol Stop: 05/23/22 14:25 Ferrous Sulfate (Ferrous Sulfate 325 Mg Tab) 325 mg PO Q2D SHANTANU Stop: 05/24/22 08:59 Last Admin: 04/24/22 08:58 Dose: 325 mg Fluticasone Propionate (Fluticasone Propionate Na Spr 16 Gm Btl) 1 sprays NA DAILY SHANTANU Stop: 05/24/22 08:59 Last Admin: 04/24/22 08:58 Dose: 1 sprays Furosemide (Furosemide 40 Mg/4 Ml Vial) 40 mg IV BID SHANTANU Stop: 05/23/22 20:59 Last Admin: 04/24/22 08:58 Dose: 40 mg Gabapentin (Gabapentin 300 Mg Cap) 300 mg PO BID SHANTANU Stop: 05/23/22 20:59 Last Admin: 04/24/22 08:57 Dose: 300 mg Glucagon (Glucagon For Inj 1 Mg Vial) 1 mg SQ UD PRN; Protocol PRN Reason: Hypoglycemia Protocol Stop: 05/23/22 14:25 Glucose (Glucose 40% Gel 15 Gm Tube) 15 - 30 gm PO UD PRN; Protocol PRN Reason: Hypoglycemia Protocol Stop: 05/23/22 14:25 Glucose (Glucose 10 Tab/Tube) 4 - 8 tab PO UD PRN; Protocol PRN Reason: Hypoglycemia Treatment Stop: 05/23/22 14:25 Guaifenesin (Guaifenesin 600 Mg Tabcr) 1,200 mg PO BID SHANTANU Stop: 05/23/22 20:59 Last Admin: 04/24/22 08:57 Dose: 1,200 mg Heparin Sodium (Porcine) (Heparin Sod 5,000 Unit/0.5 Ml Vial) 5,000 units SQ Q12 SHANTANU Stop: 05/23/22 20:59 Last Admin: 04/24/22 08:58 Dose: 5,000 units Insulin Aspart (Insulin Aspart Per Unit) 0 units SC ACHS SHANTANU Stop: 05/23/22 16:29 Last Admin: 04/24/22 12:33 Dose: 5 units Insulin Glargine (Lantus Per Unit Charge) 15 units SQ BID SHANTANU Stop: 05/23/22 20:59 Last Admin: 04/24/22 09:17 Dose: 15 units Isosorbide Mononitrate (Isosorbide [place] Extended Rel 60 Mg Tabcr) 60 mg PO DAILY SHANTANU Stop: 05/24/22 08:59 Last Admin: 04/24/22 08:56 Dose: 60 mg Metoprolol Succinate (Metoprolol Succ 50mg Ext Rel Tab) 100 mg PO DAILY SHANTANU Stop: 05/24/22 08:59 Last Admin: 04/24/22 08:57 Dose: 100 mg Miscellaneous (Carbohydrates For Hypoglycemia ) 15 - 30 gm PO UD PRN PRN Reason: Hypoglycemia Protocol Stop: 05/23/22 14:25 Multivitamins (Multivitamin Tab) 1 tab PO QAM SHANTANU Stop: 05/24/22 08:59 Last Admin: 04/24/22 08:56 Dose: 1 tab Ondansetron HCl (Ondansetron Inj 2 Mg/Ml 2 Ml Vial) 4 mg IV Q6H PRN PRN Reason: Nausea Stop: 05/23/22 14:25 Pantoprazole Sodium (Pantoprazole 40 Mg Tab) 40 mg PO BID SHANTANU Stop: 05/23/22 20:59 Last Admin: 04/24/22 08:56 Dose: 40 mg Polyethylene Glycol (Polyethylene (Miralax) 17 Gm Pack) 17 gm PO DAILY PRN PRN Reason: Constipation Stop: 05/23/22 14:25 Potassium Chloride (Potassium Chloride Crtab 20 Meq Tabcr) 20 meq PO Q2D SHANTANU Stop: 05/24/22 08:59 Last Admin: 04/24/22 08:57 Dose: 20 meq Rosuvastatin Calcium (Rosuvastatin Calcium 20 Mg Tab) 40 mg PO DAILY SHANTANU Stop: 05/24/22 08:59 Last Admin: 04/24/22 08:57 Dose: 40 mg Umeclidinium/Vilanterol (Umeclidinium/Vilanterol 62.5/25mcg 7 Puffs/Inhaler) 1 puffs INH DAILY SHANTANU Stop: 05/24/22 08:59 Last Admin: 04/24/22 08:59 Dose: 1 puffs PG Care Time/CCT Total # of Minutes Spent Total Time Spent with Patient: Total time spent is greater than 50% in coordination of care (as documented) at patient's floor/unit and/or counseling patient: Coding Level of Care Code 18847 Subseq Hosp Care Lvl 3 Diagnoses Acute on chronic heart failure with preserved ejection fraction (HFpEF) I50.33 Aortic stenosis I35.0 Elevated troponin R77.8 Acute respiratory failure with hypoxia J96.01 CAD (coronary artery disease) I25.10 Hypertension I10 Dyslipidemia E78.5
--- NOTE | 2022-04-24 18:20 | Billing Data ---
Date of Service April 24, 2022 Coding Level of Care Code 72690 Subseq Hosp Care Lvl 3
--- NOTE | 2022-04-24 21:33 | Electrocardiogram Report ---
Test Reason : Blood Pressure : / mmHG Vent. Rate : 070 BPM Atrial Rate : 070 BPM P-R Int : 174 ms QRS Dur : 092 ms QT Int : 450 ms P-R-T Axes : 044 006 -24 degrees QTc Int : 486 ms Normal sinus rhythm Left ventricular hypertrophy with repolarization abnormality Prolonged QT Abnormal ECG When compared with ECG of 23-APR-2022 11:11, Vent. rate has decreased BY 44 BPM Confirmed by Joaquín Murray ([id number]) on 04/24/2022 9:32:58 PM Referred By: REFERRED SELF Confirmed By:Joaquín Murray
--- NOTE | 2022-04-25 06:53 | Hospitalist Progress Note ---
Date of Service April 25, 2022 Assessment & Plan (1) Acute on chronic heart failure with preserved ejection fraction (HFpEF): Plan: Juancho Bronson is a 81 y/o male who presented to the ED on 04/23 for shortness of breath. His PMH includes s/p lobectomy, HFpEF, aortic stenosis, T2DM, CKD. Patient has responded well to diuresing today, patient admits he has not been compliant with salt content lately. Case has been discussed with [facility] (Dr. Barnett), awaiting TAVR on May 05. Plan for now is to keep him at least through the weekend in hopes to prevent a readmission prior to his TAVR procedure. Acute on Chronic Heart Failure with Preserved Ejection Fraction (HFpEF) -BNP at admission: 735 -CXR: pulmonary vascular congestion, small left pleural effusion -Heart failure likely exacerbated by known severe aortic stenosis -Cardiology consulted, appreciate recommendations -Fluid status: no signs of hypervolemia at this time. -Continue strict I's&O's, daily weights -Continue diuresing, Will decrease IV Lasix 40mg IV BID to 20mg BID. Will continue to monitor fluid status. Acute Respiratory Failure with Hypoxia - Secondary to severe Acute Respiratory Acidosis (Resolved) - Hypoxia due to severe , mixed restrictive/obstructive lung disease. - BIPAP. Initial VBG 7.24/63/79/27. - Patient is somnolent and not moving air incredibly well, could be due to receiving lorazepam in ED as patient initially presented quite anxious. Has underlying mixed restrictive/obstructive lung dz. - Strict wishes previously expressed by patient that he would not want to be intubated under any circumstances. - Repeat VBG on 04/23 showed 7.36/53/52/30. No further treatment or intervention is needed at this time. Aortic Stenosis -Severe, recently evaluated for TAVR at [facility] with Dr. Barnett (procedure date planned for 05/05/22) -Echo from 04/23: severe , EF: 50-55% Acute Kidney Injury Superimposed on CKD -Cr 1.92 today, baseline 1.5-1.7 -Improving but still slightly over baseline. -Likely due to hypoperfusion from -Will continue to monitor on daily labs, avoid nephrotoxins agents. Elevated Troponin - Elevated to 3200, Likely in the setting of severe and hypoxia to 60s at home, this does not represent ACS. His EKG appears similar to previous. - EKG w/o reports of CP or anginal equivalent symptoms. Nonocclusive Coronary Atherosclerosis of [place] Coronary Artery - Continue ASA, statin, Ranexa; metoprolol on hold given low BPs while diuresing. - EKG with similar ST depressions in lateral leads that have been seen previously. Diabetes Mellitus, Type 2 - Lantus 15 u BID with SSI (25 CF, 8 CR) - Accuhecks ACHS/q6h while NPO. 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 - Obstructive due to prior tobacco chew, chemical exposure at work - Continue Anoro daily, albuterol prn. Diet: Low sodium diet DVT PPx: SCDs and heparin Code Status: DNR/DNI Thank you for allowing me to participate in the care of your patient. -Dr. Uzair Hill PGY1 (2) Aortic stenosis: (3) Elevated troponin: (4) Acute respiratory failure with hypoxia: (5) Acute respiratory acidosis: (6) Acute kidney injury superimposed on CKD: (7) Anemia: (8) Nonocclusive coronary atherosclerosis of [place] coronary artery: (9) Diabetes mellitus, type 2: (10) GERD (gastroesophageal reflux disease): (11) Mixed restrictive and obstructive lung disease: (12) Obstructive sleep apnea syndrome: (13) S/P lobectomy of lung: Admission and Anticipated Discharge Date Admission Date: April 23, 2022 Supervising Physician Co-Signing Physician Notes I personally examined the patient and verified all mccrary points of history and exam, discussed case, and agree with decision making with Dr Hill Breathing continues to improve. Vitals noted, in general he is awake and alert pleasant no distress. HEENT normocephalic atraumatic mucous membranes moist. Breathing unlabored no accessory muscle use good effort. Skin shows no rashes no pallor or icterus. Neuro without focal deficits. Acute on chronic HFpEFrelated to severe aortic stenosisdiurese. Fortunately cardiology was able to get his TAVR appointment moved to sooner so hopefully once he no longer has the bottleneck of his aortic valve creating HFpEF he should do better. Diuresing nicely. Appreciate cardiology input. Otherwise as above Subjective Patient was seen and examined at bedside. Juancho is resting in his bed. He required BiPAP overnight but is comfortable on room air at time of encounter. He denies any current cough, SOB at rest, orthopnea, CP, N/V, or ab pain. Physical Exam Physical Exam: Constitutional: well-appearing, no acute distress HEENT: NCAT, no conjunctival injection CV: regular rhythm, Systolic murmur on the R 2nd intercostal space, extremities well-perfused, 2+ radial and posterior tibialis pulses bilaterally, no bilateral LE edema. Resp: CTABL, no wheezes/rales/rhonchi appreciated, no increased work of breathing GI: soft, nondistended, nontender, BS normoactive MSK: no gross deformities appreciated Skin: warm, dry, no rash appreciated Neuro: alert, oriented, no focal neurologic deficit appreciated Results & Data Results & Data ([facility]) Vital Signs (Past 12 Hours) Vital Signs Temp Pulse Pulse Resp BP Pulse Ox O2 Del Method 04/25/22 03:13 36.9 C 76 20 147/71 H 93 Room Air 04/24/22 22:20 82 04/24/22 20:20 Room Air 04/24/22 22:45 76 12 93 04/24/22 23:07 36.4 C L 80 14 125/63 93 Room Air 04/24/22 19:35 36.9 C 72 18 116/47 L 92 Room Air FiO2 04/25/22 03:13 04/24/22 22:20 04/24/22 20:20 04/24/22 22:45 30 04/24/22 23:07 04/24/22 19:35 Laboratory Results Abnormal lab results 04/24/22 04/24/22 04/24/22 Range/Units 11:07 16:16 20:19 RBC (4.63-6.08) M/uL Hgb (14.0-18.0) g/dl Hct (40.1-51.0) % MCHC (32.0-36.0) g/dL RDW Std Deviation (36.4-46.3) fL RDW Coeff of Mac (11.5-14.5) % Carbon Dioxide (21-32) mmol/L BUN (6-23) mg/dl Creatinine (0.6-1.4) mg/dl Glucose (70-99(Fasting)) mg/dl POC Glucose 132 H 109 H 107 H (70-99) mg/dl 04/25/22 04/25/22 04/25/22 Range/Units 06:57 06:57 07:46 RBC 4.17 L (4.63-6.08) M/uL Hgb 11.9 L (14.0-18.0) g/dl Hct 38.5 L (40.1-51.0) % MCHC 30.9 L (32.0-36.0) g/dL RDW Std Deviation 60.2 H (36.4-46.3) fL RDW Coeff of Mac 17.7 H (11.5-14.5) % Carbon Dioxide 33 H (21-32) mmol/L BUN 28 H (6-23) mg/dl Creatinine 1.92 H (0.6-1.4) mg/dl Glucose 109 H (70-99(Fasting)) mg/dl POC Glucose 110 H (70-99) mg/dl Diagnostic Findings Chest X-Ray 04/23/22 10:55 XR chest 1V portable CLINICAL HISTORY: Sepsis TECHNIQUE: Single frontal radiograph of the chest was obtained. Comparison: Comparison is made to chest radiograph 03/17/2022 FINDINGS: No lines and tubes are seen. Cardiomegaly is noted. There is prominence and cephalization of the vasculature with Noemy B lines seen. Diffuse airspace opacities are somewhat increased from prior exam. Small left pleural effusion. IMPRESSION: At least moderate pulmonary edema. Diffuse airspace opacities may represent pneumonia, atelectasis, aspiration, and/or alveolar edema. There is a small left pleural effusion. ACT 112: Negative or not required by law. Electronically signed by: Adarsh Sommers M.D. 04/23/2022 12:30 PM Medications Administered Home Medications aspirin 81 mg tablet,delayed release 81 mg PO BID 04/25/18 [History Confirmed 04/23/22] multivitamin 1 tab PO QAM 04/25/18 [History Confirmed 04/23/22] guaifenesin 1,200 mg tablet, extended release 12 hr (Mucinex) 1,200 mg PO BID 04/27/19 [History Confirmed 04/23/22] CPAP Machine #1 ea 07/17/19 [Rx Confirmed 03/23/22] CPAP Supplies #1 ea 05/23/20 [Rx Confirmed 03/23/22] nebulizers (Aeroneb Go Nebulizer) #1 ea 05/23/20 [Rx Confirmed 04/16/22] Flutter Valve #1 ea 05/24/20 [Rx Confirmed 04/16/22] ipratropium 0.5 mg-albuterol 3 mg (2.5 mg base)/3 mL nebulization soln 3 ml inhalation Q8H PRN shortness of breath or wheezing #270 mL 11/25/20 [Rx Confirmed 04/23/22] fluticasone propionate 50 mcg/actuation nasal spray,suspension (Allergy Relief (fluticasone)) 1 spray intranasal DAILY #9.9 grams 03/24/21 [Rx Confirmed 04/23/22] isosorbide mononitrate 60 mg tablet,extended release 24 hr 60 mg PO DAILY 11/08/21 [History Confirmed 04/23/22] umeclidinium 62.5 mcg-vilanterol 25 mcg/actuation powdr for inhalation (Anoro Ellipta) 1 inh inhalation DAILY #60 ea 11/13/21 [Rx Confirmed 04/23/22] potassium chloride 10 mEq capsule,extended release 20 meq PO .COMPLEX 01/14/22 [History Confirmed 04/23/22] ferrous sulfate 324 mg (65 mg iron) tablet,delayed release 324 mg PO Q OTHER DAY #30 tabs 03/06/22 [Rx Confirmed 04/23/22] furosemide 40 mg tablet 40 mg PO DAILY #30 tabs 03/06/22 [Rx Confirmed 04/23/22] empagliflozin 10 mg tablet 10 mg PO DAILY #90 tabs 03/10/22 [Rx Confirmed 04/23/22] gabapentin 300 mg capsule 300 mg PO BID #180 caps 03/10/22 [Rx Confirmed 04/23/22] insulin lispro protamine-lispro 100 unit/mL (75-25) subcutaneous susp (Humalog Mix 75-25(U-100)Insuln) 50 unit subcut QPM 03/10/22 [History Confirmed 04/23/22] insulin lispro protamine-lispro 100 unit/mL (75-25) subcutaneous susp (Humalog Mix 75-25(U-100)Insuln) 75 unit subcut QAM 03/10/22 [History Confirmed 04/23/22] metoprolol succinate 100 mg tablet,extended release 24 hr 100 mg PO DAILY #90 tabs 03/10/22 [Rx Confirmed 04/23/22] rosuvastatin 40 mg tablet 40 mg PO DAILY #90 tabs 03/10/22 [Rx Confirmed 04/23/22] dulaglutide 0.75 mg/0.5 mL subcutaneous pen injector (Trulicity) 0.75 mg (0.5 mL) subcut .weekly #6 mL 03/31/22 [Rx Confirmed 04/23/22] pantoprazole 40 mg tablet,delayed release 40 mg PO BID #60 tabs 04/08/22 [Rx Confirmed 04/23/22] Active Medications Acetaminophen (Acetaminophen 325 Mg Tab) 650 mg PO Q4H PRN PRN Reason: Pain or Fever Stop: 05/23/22 14:25 Albuterol (Albut/Ipratrop 3mg/0.5mg Neb 3 Ml Vial) 3 ml INH Q8R PRN; Protocol PRN Reason: shortness of breath or wheezing Stop: 05/23/22 14:25 Aspirin (Aspirin 81 Mg Ectab) 81 mg PO QAM SHANTANU Stop: 05/24/22 08:59 Last Admin: 04/25/22 08:00 Dose: 81 mg Dextrose (Dextrose 50% 50 Ml Syringe) 25 - 50 ml IV UD PRN; Protocol PRN Reason: Hypoglycemia Protocol Stop: 05/23/22 14:25 Ferrous Sulfate (Ferrous Sulfate 325 Mg Tab) 325 mg PO Q2D SHANTANU Stop: 05/24/22 08:59 Last Admin: 04/24/22 08:58 Dose: 325 mg Fluticasone Propionate (Fluticasone Propionate Na Spr 16 Gm Btl) 1 sprays NA DAILY SHANTANU Stop: 05/24/22 08:59 Last Admin: 04/25/22 08:00 Dose: 1 sprays Furosemide (Furosemide 40 Mg/4 Ml Vial) 40 mg IV BID SHANTANU Stop: 05/23/22 20:59 Last Admin: 04/25/22 07:59 Dose: 40 mg Gabapentin (Gabapentin 300 Mg Cap) 300 mg PO BID SHANTANU Stop: 05/23/22 20:59 Last Admin: 04/25/22 08:00 Dose: 300 mg Glucagon (Glucagon For Inj 1 Mg Vial) 1 mg SQ UD PRN; Protocol PRN Reason: Hypoglycemia Protocol Stop: 05/23/22 14:25 Glucose (Glucose 40% Gel 15 Gm Tube) 15 - 30 gm PO UD PRN; Protocol PRN Reason: Hypoglycemia Protocol Stop: 05/23/22 14:25 Glucose (Glucose 10 Tab/Tube) 4 - 8 tab PO UD PRN; Protocol PRN Reason: Hypoglycemia Treatment Stop: 05/23/22 14:25 Guaifenesin (Guaifenesin 600 Mg Tabcr) 1,200 mg PO BID SHANTANU Stop: 05/23/22 20:59 Last Admin: 04/25/22 08:00 Dose: 1,200 mg Heparin Sodium (Porcine) (Heparin Sod 5,000 Unit/0.5 Ml Vial) 5,000 units SQ Q12 SHANTANU Stop: 05/23/22 20:59 Last Admin: 04/25/22 07:59 Dose: 5,000 units Insulin Aspart (Insulin Aspart Per Unit) 0 units SC ACHS SHANTANU Stop: 05/23/22 16:29 Last Admin: 04/25/22 08:06 Dose: 4 units Insulin Glargine (Lantus Per Unit Charge) 15 units SQ BID SHANTANU Stop: 05/23/22 20:59 Last Admin: 04/25/22 08:06 Dose: 15 units Isosorbide Mononitrate (Isosorbide Nash Extended Rel 60 Mg Tabcr) 60 mg PO DAILY SHANTANU Stop: 05/24/22 08:59 Last Admin: 04/25/22 08:00 Dose: 60 mg Metoprolol Succinate (Metoprolol Succ 50mg Ext Rel Tab) 100 mg PO DAILY SHANTANU Stop: 05/24/22 08:59 Last Admin: 04/25/22 07:59 Dose: 100 mg Miscellaneous (Carbohydrates For Hypoglycemia ) 15 - 30 gm PO UD PRN PRN Reason: Hypoglycemia Protocol Stop: 05/23/22 14:25 Multivitamins (Multivitamin Tab) 1 tab PO QAM SHANTANU Stop: 05/24/22 08:59 Last Admin: 04/25/22 07:59 Dose: 1 tab Ondansetron HCl (Ondansetron Inj 2 Mg/Ml 2 Ml Vial) 4 mg IV Q6H PRN PRN Reason: Nausea Stop: 05/23/22 14:25 Pantoprazole Sodium (Pantoprazole 40 Mg Tab) 40 mg PO BID SHANTANU Stop: 05/23/22 20:59 Last Admin: 04/25/22 08:00 Dose: 40 mg Polyethylene Glycol (Polyethylene (Miralax) 17 Gm Pack) 17 gm PO DAILY PRN PRN Reason: Constipation Stop: 05/23/22 14:25 Potassium Chloride (Potassium Chloride Crtab 20 Meq Tabcr) 20 meq PO Q2D SHANTANU Stop: 05/24/22 08:59 Last Admin: 04/24/22 08:57 Dose: 20 meq Rosuvastatin Calcium (Rosuvastatin Calcium 20 Mg Tab) 40 mg PO DAILY SHANTANU Stop: 05/24/22 08:59 Last Admin: 04/25/22 08:00 Dose: 40 mg Umeclidinium/Vilanterol (Umeclidinium/Vilanterol 62.5/25mcg 7 Puffs/Inhaler) 1 puffs INH DAILY SHANTANU Stop: 05/24/22 08:59 Last Admin: 04/25/22 08:00 Dose: 1 puffs Aspirin (Aspirin 81 Mg Ectab) 81 mg PO QAM [facility] Stop: 05/24/22 08:59 Last Admin: 04/25/22 08:00 Dose: 81 mg Documented By: Admin: 04/24/22 08:57 Dose: 81 mg Documented By: CRISTIAN Ferrous Sulfate (Ferrous Sulfate 325 Mg Tab) 325 mg PO Q2D SHANTANU Stop: 05/24/22 08:59 Last Admin: 04/24/22 08:58 Dose: 325 mg Documented By: CRISTIAN Fluticasone Propionate (Fluticasone Propionate Na Spr 16 Gm Btl) 1 sprays NA DAILY SHANTANU Stop: 05/24/22 08:59 Last Admin: 04/25/22 08:00 Dose: 1 sprays Documented By: Admin: 04/24/22 08:58 Dose: 1 sprays Documented By: CRISTIAN Furosemide (Furosemide 40 Mg/4 Ml Vial) 40 mg IV BID [facility] Stop: 05/23/22 20:59 Last Admin: 04/25/22 07:59 Dose: 40 mg Documented By: Admin: 04/24/22 20:44 Dose: 40 mg Documented By: Admin: 04/24/22 08:58 Dose: 40 mg Documented By: Admin: 04/23/22 22:01 Dose: 40 mg Documented By: DORIS Gabapentin (Gabapentin 300 Mg Cap) 300 mg PO BID SHANTANU Stop: 05/23/22 20:59 Last Admin: 04/25/22 08:00 Dose: 300 mg Documented By: Admin: 04/24/22 20:43 Dose: 300 mg Documented By: Admin: 04/24/22 08:57 Dose: 300 mg Documented By: Admin: 04/23/22 22:04 Dose: 300 mg Documented By: DORIS Guaifenesin (Guaifenesin 600 Mg Tabcr) 1,200 mg PO BID SHANTANU Stop: 05/23/22 20:59 Last Admin: 04/25/22 08:00 Dose: 1,200 mg Documented By: Admin: 04/24/22 20:42 Dose: 1,200 mg Documented By: Admin: 04/24/22 08:57 Dose: 1,200 mg Documented By: Admin: 04/23/22 22:04 Dose: 1,200 mg Documented By: DORIS Heparin Sodium (Porcine) (Heparin Sod 5,000 Unit/0.5 Ml Vial) 5,000 units SQ Q12 SHANTANU Stop: 05/23/22 20:59 Last Admin: 04/25/22 07:59 Dose: 5,000 units Documented By: Admin: 04/24/22 20:43 Dose: 5,000 units Documented By: Admin: 04/24/22 08:58 Dose: 5,000 units Documented By: Admin: 04/23/22 22:04 Dose: 5,000 units Documented By: DORIS Insulin Aspart (Insulin Aspart Per Unit) 0 units SC ACHS SHANTANU Stop: 05/23/22 16:29 Last Admin: 04/25/22 08:06 Dose: 4 units Documented By: CRISTIAN Co-signed By: CHAN Admin: 04/24/22 20:44 Dose: Not Given Documented By: Admin: 04/24/22 17:18 Dose: 2 units Documented By: CRISTIAN Co-signed By: BARBRA Admin: 04/24/22 12:33 Dose: 5 units Documented By: CRISTIAN Co-signed By: LAVON Admin: 04/24/22 08:55 Dose: Not Given Documented By: Admin: 04/23/22 21:04 Dose: Not Given Documented By: Admin: 04/23/22 17:04 Dose: 2 units Documented By: ANGELIQUE Co-signed By: JOSELINE Insulin Glargine (Lantus Per Unit Charge) 15 units SQ BID SHANTANU Stop: 05/23/22 20:59 Last Admin: 04/25/22 08:06 Dose: 15 units Documented By: CRISTIAN Co-signed By: CHAN Admin: 04/24/22 20:44 Dose: 15 units Documented By: DORIS Co-signed By: GURU Admin: 04/24/22 09:17 Dose: 15 units Documented By: CRISTIAN Co-signed By: LAVON Admin: 04/23/22 21:50 Dose: 15 units Documented By: DORIS Co-signed By: WILMA Isosorbide Mononitrate (Isosorbide Nash Extended Rel 60 Mg Tabcr) 60 mg PO DAILY SHANTANU Stop: 05/24/22 08:59 Last Admin: 04/25/22 08:00 Dose: 60 mg Documented By: Admin: 04/24/22 08:56 Dose: 60 mg Documented By: CRISTIAN Metoprolol Succinate (Metoprolol Succ 50mg Ext Rel Tab) 100 mg PO DAILY SHANTANU Stop: 05/24/22 08:59 Last Admin: 04/25/22 07:59 Dose: 100 mg Documented By: Admin: 04/24/22 08:57 Dose: 100 mg Documented By: CRISTIAN Multivitamins (Multivitamin Tab) 1 tab PO QAM SHANTANU Stop: 05/24/22 08:59 Last Admin: 04/25/22 07:59 Dose: 1 tab Documented By: Admin: 04/24/22 08:56 Dose: 1 tab Documented By: CRISTIAN Pantoprazole Sodium (Pantoprazole 40 Mg Tab) 40 mg PO BID SHANTANU Stop: 05/23/22 20:59 Last Admin: 04/25/22 08:00 Dose: 40 mg Documented By: Admin: 04/24/22 20:43 Dose: 40 mg Documented By: Admin: 04/24/22 08:56 Dose: 40 mg Documented By: Admin: 04/23/22 22:05 Dose: 40 mg Documented By: DORIS Potassium Chloride (Potassium Chloride Crtab 20 Meq Tabcr) 20 meq PO Q2D SHANTANU Stop: 05/24/22 08:59 Last Admin: 04/24/22 08:57 Dose: 20 meq Documented By: CRISTIAN Rosuvastatin Calcium (Rosuvastatin Calcium 20 Mg Tab) 40 mg PO DAILY SHANTANU Stop: 05/24/22 08:59 Last Admin: 04/25/22 08:00 Dose: 40 mg Documented By: Admin: 04/24/22 08:57 Dose: 40 mg Documented By: CRISTIAN Umeclidinium/Vilanterol (Umeclidinium/Vilanterol 62.5/25mcg 7 Puffs/Inhaler) 1 puffs INH DAILY SHANTANU Stop: 05/24/22 08:59 Last Admin: 04/25/22 08:00 Dose: 1 puffs Documented By: Admin: 04/24/22 08:59 Dose: 1 puffs Documented By: CRISTIAN Resident Activity Tracking Resident Involvement: Resident Care Provided Care Provided: Adult Hospital Medicine
[2022-04-25 07:05] LABS: Hematocrit (blood only) 38.5 % (40.1-51.0); Hemoglobin 11.9 g/dl (14.0-18.0); Mean Corpuscular Hemoglobin 28.5 pg (25.0-34.0); Mean Corpuscular Hgb Conc 30.9 g/dL (32.0-36.0); Mean Corpuscular Volume 92.3 fL (80.0-100.0); Mean Platelet Volume 9.6 fL (9.4-12.4); Platelet Count 263 K/uL (130-400); RDW Coefficient of Variation 17.7 % (11.5-14.5); RDW Standard Deviation 60.2 fL (36.4-46.3); Red Blood Count 4.17 M/uL (4.63-6.08); White Blood Count 8.57 K/ul (4.8-10.8)
[2022-04-25] MEDS: MULTIVITAMIN TAB PO SCH (07:59)
[2022-04-25] MEDS: FUROSEMIDE 40 MG/4 ML VIAL IV SCH (07:59)
[2022-04-25] MEDS: METOPROLOL SUCC 50MG EXT REL TAB PO SCH (07:59)
[2022-04-25] MEDS: HEPARIN SOD 5,000 UNIT/0.5 ML VIAL SQ SCH ×2 (07:59→21:34)
[2022-04-25] MEDS: ISOSORBIDE MONO EXTENDED REL 60 MG TABCR PO SCH (08:00)
[2022-04-25] MEDS: UMECLIDINIUM/VILANTEROL 62.5/25MCG 7 PUFFS/INHALER INH SCH (08:00)
[2022-04-25] MEDS: ASPIRIN 81 MG ECTAB PO SCH (08:00)
[2022-04-25] MEDS: ROSUVASTATIN CALCIUM 20 MG TAB PO SCH (08:00)
[2022-04-25] MEDS: guaiFENesin 600 MG TABCR PO SCH ×2 (08:00→21:32)
[2022-04-25] MEDS: FLUTICASONE PROPIONATE NA SPR 16 GM BTL SCH (08:00)
[2022-04-25] MEDS: PANTOprazole 40 MG TAB PO SCH ×2 (08:00→21:33)
[2022-04-25] MEDS: GABAPENTIN 300 MG CAP PO SCH ×2 (08:00→21:33)
[2022-04-25] MEDS: INSULIN ASPART PER UNIT SC SCH ×4 (08:06→20:31)
[2022-04-25] MEDS: LANTUS PER UNIT CHARGE SQ SCH ×2 (08:06→21:34)
[2022-04-25 08:16] LABS: BUN Creatinine Ratio 14.6 (10-20); Calcium 9.3 mg/dl (8.5-10.1); Est GFR (African American) 37.5 ml/min; Est GFR (Non-African American) 32.4 ml/min; Potassium 3.6 mmol/L (3.5-5.1)
--- NOTE | 2022-04-25 12:28 | Cardiology Progress Note ---
Date of Service April 25, 2022 Assessment & Plan (1) Acute on chronic heart failure with preserved ejection fraction (HFpEF): (2) Aortic stenosis: (3) Elevated troponin: (4) Acute respiratory failure with hypoxia: (5) CAD (coronary artery disease): (6) Hypertension: (7) Dyslipidemia: Plan ASSESSMENT/PLAN: 1. Acute on chronic HFpEF: He has affected a good diuresis. Diuretics were reduced today. I think tomorrow he can transition to 40 mg of Lasix orally. 2. Aortic stenosis: Severe. Patient still scheduled for elective TAVR within the next few weeks. 3. Elevated troponin: Likely due to demand ischemia in the setting of severe aortic stenosis with acute CHF and respiratory failure with hypoxia. Nonobstructive CAD on recent cardiac catheterization. 4. Acute respiratory failure with hypoxia: Likely due to CHF in the setting of mixed restrictive and obstructive lung disease and previous lobectomy. Has been followed by pulmonology as an outpatient. Much improved with diuresis. 5. CAD: Nonobstructive. Recommend aspirin 81 mg daily. No angina. Continue statin therapy and beta-angela. Can discontinue nitrate therapy, especially in the setting of severe aortic stenosis. 6. Dyslipidemia: Continue high-intensity statin therapy. 7. Hypertension: Mostly normotensive with episodes of mild hypotension, but asymptomatic. If blood pressure remains mildly hypotensive, would consider reducing intravenous diuretic to once daily. We can liberalize his activity today. We can stop intravenous diuretics tomorrow and start him back on his outpatient 40 mg orally of Lasix Possible discharge tomorrow depending on his clinical status. Admission and Anticipated Discharge Date Admission Date: April 23, 2022 Subjective This morning patient claimed he feeling well. He has some mild dyspnea with activity. Denies significant dizziness. No chest pains. Review of Systems Review of Systems: Per HPI Physical Exam Physical Exam: Gen.: No acute distress. Somnolent on BiPAP. Arousable to loud verbal stimuli. HEENT: Anicteric sclera. Neck: Thick neck. Mild hepatic jugular reflux. Cardiac: PMI was nonpalpable. No ventricular heave. Regular. Normal S1. Soft S2. 2/6 late peaking systolic ejection murmur heard best at right upper sternal border. No rubs or gallops. Pulmonary: Decreased breath sounds but otherwise clear to auscultation bilaterally. Extremities: 2+ radial pulses bilaterally. 2+ posterior tibialis pulses bilaterally. 1+ bilateral lower extremity pitting edema. No cyanosis. Results & Data ([facility]) Vital Signs (Past 12 Hours) Vital Signs Temp Pulse Pulse Resp BP Pulse Ox O2 Del Method 04/25/22 11:31 36.8 C 64 19 117/56 L 91 Room Air 04/25/22 11:16 Room Air 04/25/22 10:33 70 04/25/22 07:54 36.9 C 76 19 143/62 H 93 Room Air 04/25/22 03:13 36.9 C 76 20 147/71 H 93 Room Air Laboratory Results Abnormal Lab Results 04/24/22 04/24/22 04/25/22 16:16 20:19 06:57 WBC 8.57 RBC 4.17 L Hgb 11.9 L Hct 38.5 L MCV 92.3 MCH 28.5 MCHC 30.9 L RDW Std Deviation 60.2 H RDW Coeff of Mac 17.7 H Plt Count 263 MPV 9.6 Sodium Potassium Chloride Carbon Dioxide Anion Gap BUN Creatinine Est Cr Clr Drug Dosing Est GFR ( Amer) Est GFR (Non-Af Amer) BUN/Creatinine Ratio Glucose POC Glucose 109 H 107 H Calcium 04/25/22 04/25/22 04/25/22 06:57 07:46 11:14 WBC RBC Hgb Hct MCV MCH MCHC RDW Std Deviation RDW Coeff of Mac Plt Count MPV Sodium 140 Potassium 3.6 Chloride 100 Carbon Dioxide 33 H Anion Gap 7 BUN 28 H Creatinine 1.92 H Est Cr Clr Drug Dosing 34.0 Est GFR ( Amer) 37.5 Est GFR (Non-Af Amer) 32.4 BUN/Creatinine Ratio 14.6 Glucose 109 H POC Glucose 110 H 131 H Calcium 9.3 PG Care Time/CCT Total # of Minutes Spent Total Time Spent with Patient: Total time spent is greater than 50% in coordination of care (as documented) at patient's floor/unit and/or counseling patient: Coding Level of Care Code 85606 Subseq Hosp Care Lvl 2 Diagnoses Acute on chronic heart failure with preserved ejection fraction (HFpEF) I50.33 Aortic stenosis I35.0 Elevated troponin R77.8 Acute respiratory failure with hypoxia J96.01 CAD (coronary artery disease) I25.10 Hypertension I10 Dyslipidemia E78.5
--- NOTE | 2022-04-25 16:53 | Billing Data ---
Date of Service April 25, 2022 Coding Level of Care Code 80941 Subseq Hosp Care Lvl 2
[2022-04-25] MEDS ORDERED: FUROSEMIDE INJ 20 MG/2 ML VIAL IV SCH (21:00)
--- NOTE | 2022-04-26 07:07 | Hospitalist Progress Note ---
Date of Service April 26, 2022 Assessment & Plan (1) Acute on chronic heart failure with preserved ejection fraction (HFpEF): Plan: Juancho Bronson is a 81 y/o male who presented to the ED on 04/23 for shortness of breath. His PMH includes s/p lobectomy, HFpEF, aortic stenosis, T2DM, CKD. Patient has responded well to diuresing today, patient admits he has not been compliant with salt content lately. Case has been discussed with [facility] (Dr. Barnett), awaiting TAVR on May 05. Plan for now is to keep him at least through the weekend in hopes to prevent a readmission prior to his TAVR procedure. Acute on Chronic Heart Failure with Preserved Ejection Fraction (HFpEF) -BNP at admission: 735 -CXR: pulmonary vascular congestion, small left pleural effusion -Heart failure likely exacerbated by known severe aortic stenosis -Cardiology consulted, appreciate recommendations -Fluid status: no signs of hypervolemia at this time. -Continue strict I's&O's, daily weights -Continue diuresing, Initially on IV Lasix 40mg BID and then IV Lasix 20mg BID. Switched to PO Lasix 40mg QAM starting this morning. Will continue to monitor fluid status. Acute Respiratory Failure with Hypoxia - Secondary to severe Acute Respiratory Acidosis (Resolved) - Hypoxia due to severe , mixed restrictive/obstructive lung disease. - BIPAP. Initial VBG 7.24/63/79/27. - Patient is somnolent and not moving air incredibly well, could be due to receiving lorazepam in ED as patient initially presented quite anxious. Has underlying mixed restrictive/obstructive lung dz. - Strict wishes previously expressed by patient that he would not want to be intubated under any circumstances. - Repeat VBG on 04/23 showed 7.36/53/52/30. No further treatment or intervention is needed at this time. Aortic Stenosis -Severe, recently evaluated for TAVR at [facility] with Dr. Barnett (procedure date planned for 05/05/22) -Echo from 04/23: severe , EF: 50-55% Acute Kidney Injury Superimposed on CKD -Cr 1.92 yesterday, 1.79 today, baseline 1.5-1.7 -Improving but still slightly over baseline. -Likely due to hypoperfusion from -Will continue to monitor on daily labs, avoid nephrotoxins agents. Elevated Troponin - Elevated to 3200, Likely in the setting of severe and hypoxia to 60s at home, this does not represent ACS. His EKG appears similar to previous. - EKG w/o reports of CP or anginal equivalent symptoms. Nonocclusive Coronary Atherosclerosis of [place] Coronary Artery - Continue ASA, statin, Ranexa; metoprolol on hold given low BPs while diuresing. - EKG with similar ST depressions in lateral leads that have been seen previously. Diabetes Mellitus, Type 2 - Lantus 15 u BID with SSI (25 CF, 8 CR) - Accuhecks ACHS/q6h while NPO. 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 - Obstructive due to prior tobacco chew, chemical exposure at work - Continue Anoro daily, albuterol prn. Diet: Low sodium diet DVT PPx: SCDs and heparin Code Status: DNR/DNI Dispo: Will see how patient does with the oral dose of Lasix. Will encourage patient to get up and moving. Will most likely be D/C tomorrow. Thank you for allowing me to participate in the care of your patient. -Dr. Uzair Hill PGY1 (2) Aortic stenosis: (3) Elevated troponin: (4) Acute respiratory failure with hypoxia: (5) Acute respiratory acidosis: (6) Acute kidney injury superimposed on CKD: (7) Anemia: (8) Nonocclusive coronary atherosclerosis of [place] coronary artery: (9) Diabetes mellitus, type 2: (10) GERD (gastroesophageal reflux disease): (11) Mixed restrictive and obstructive lung disease: (12) Obstructive sleep apnea syndrome: (13) S/P lobectomy of lung: Admission and Anticipated Discharge Date Admission Date: April 23, 2022 Supervising Physician Co-Signing Physician Notes I personally examined the patient and verified all mccrary points of history and exam, discussed case, and agree with decision making with Dr Hill Breathing feeling better. Doing better overall. Has not really walked around much yet. Vitals noted, in general he is awake and alert pleasant no distress. HEENT normocephalic atraumatic mucous membranes moist. Breathing unlabored no accessory muscle use good effort. Skin shows no rashes no pallor or icterus. Neuro without focal deficits. Acute on chronic HFpEFrelated to severe aortic stenosisdiurese. Fortunately cardiology was able to get his TAVR appointment moved to sooner so hopefully once he no longer has the bottleneck of his aortic valve creating HFpEF he should do better. Diuresing nicely. Switch to p.o. DC Gallardo. Increase am bulation. Hopefully home tomorrow. Discussed with patient very adamantly to be extremely strict about sodium restriction over the next week, with my concern being that he could be so close to getting his TAVR but could end up readmitted here instead due to sodium indiscretion. Otherwise as above Subjective Patient was seen beside this AM. States that his SOB and LE edema has improved. He denies any CP, ab pain, or N/V at this time. He has no issues or complaints at this time. Physical Exam Physical Exam: Constitutional: well-appearing, no acute distress HEENT: NCAT, no conjunctival injection CV: regular rhythm, Systolic murmur on the R 2nd intercostal space, extremities well-perfused, 2+ radial and posterior tibialis pulses bilaterally, no bilateral LE edema. Resp: CTABL, no wheezes/rales/rhonchi appreciated, no increased work of jessica athing GI: soft, nondistended, nontender, BS normoactive MSK: no gross deformities appreciated Skin: warm, dry, no rash appreciated Neuro: alert, oriented, no focal neurologic deficit appreciated Results & Data Results & Data ([facility]) Vital Signs (Past 12 Hours) Vital Signs Temp Pulse Pulse Resp BP Pulse Ox O2 Del Method 04/26/22 03:32 36.7 C 68 18 132/54 L 92 Room Air 04/25/22 22:15 70 04/25/22 23:15 36.9 C 69 18 126/49 L 91 Room Air 04/25/22 19:58 36.9 C 68 14 114/55 L 92 Room Air Resident Activity Tracking Resident Involvement: Resident Care Provided Care Provided: Adult Hospital Medicine
[2022-04-26 07:09] LABS: Basophils # (auto) 0.05 K/uL (0-0.2); Basophils % (auto) 0.5 %; Eosinophils # (auto) 0.23 K/uL (0-0.50); Eosinophils % (auto) 2.3 %; Hematocrit (blood only) 38.9 % (40.1-51.0); Immature Granulocytes # (auto) 0.03 K/uL (0.00-0.02); Immature Granulocytes % (auto) 0.3 %; Lymphocytes # (auto) 1.37 K/uL (1.2-3.4); Lymphocytes % (auto) 13.6 %; Mean Corpuscular Hgb Conc 30.8 g/dL (32.0-36.0); Mean Corpuscular Volume 90.7 fL (80.0-100.0); Monocytes # (auto) 0.97 K/uL (0.24-0.82); Monocytes % (auto) 9.6 %; Neutrophils # (auto) 7.44 K/uL (1.4-6.5); Neutrophils % (auto) 73.7 %; Platelet Count 283 K/uL (130-400); RDW Coefficient of Variation 17.5 % (11.5-14.5); RDW Standard Deviation 58.3 fL (36.4-46.3); Red Blood Count 4.29 M/uL (4.63-6.08); White Blood Count 10.09 K/ul (4.8-10.8)
[2022-04-26 07:38] LABS: BUN Creatinine Ratio 17.9 (10-20); Calcium 9.4 mg/dl (8.5-10.1); Creatinine Clr Calc Pharmacy 36.7 ml/min; Est GFR (African American) 40.9 ml/min; Est GFR (Non-African American) 35.3 ml/min; Potassium 3.7 mmol/L (3.5-5.1)
[2022-04-26] MEDS: FUROSEMIDE 40 MG TAB PO SCH (08:03)
[2022-04-26] MEDS: ISOSORBIDE MONO EXTENDED REL 60 MG TABCR PO SCH (08:04)
[2022-04-26] MEDS: METOPROLOL SUCC 50MG EXT REL TAB PO SCH (08:04)
[2022-04-26] MEDS: GABAPENTIN 300 MG CAP PO SCH ×2 (08:04→21:23)
[2022-04-26] MEDS: MULTIVITAMIN TAB PO SCH (08:04)
[2022-04-26] MEDS: ROSUVASTATIN CALCIUM 20 MG TAB PO SCH (08:04)
[2022-04-26] MEDS: PANTOprazole 40 MG TAB PO SCH ×2 (08:04→21:24)
[2022-04-26] MEDS: ASPIRIN 81 MG ECTAB PO SCH (08:04)
[2022-04-26] MEDS: guaiFENesin 600 MG TABCR PO SCH ×2 (08:04→21:23)
[2022-04-26] MEDS: POTASSIUM CHLORIDE CRTAB 20 MEQ TABCR PO SCH (08:04)
[2022-04-26] MEDS: UMECLIDINIUM/VILANTEROL 62.5/25MCG 7 PUFFS/INHALER INH SCH (08:05)
[2022-04-26] MEDS: FERROUS SULFATE 325 MG TAB PO SCH (08:05)
[2022-04-26] MEDS: FLUTICASONE PROPIONATE NA SPR 16 GM BTL SCH (08:06)
[2022-04-26] MEDS: HEPARIN SOD 5,000 UNIT/0.5 ML VIAL SQ SCH ×2 (08:06→21:22)
[2022-04-26] MEDS: LANTUS PER UNIT CHARGE SQ SCH ×2 (08:15→21:30)
[2022-04-26] MEDS: INSULIN ASPART PER UNIT SC SCH ×4 (08:16→20:14)
--- NOTE | 2022-04-26 10:01 | Cardiology Progress Note ---
Date of Service April 26, 2022 Assessment & Plan (1) Acute on chronic heart failure with preserved ejection fraction (HFpEF): (2) Aortic stenosis: (3) Elevated troponin: (4) Acute respiratory failure with hypoxia: (5) CAD (coronary artery disease): (6) Hypertension: (7) Dyslipidemia: Plan ASSESSMENT/PLAN: 1. Acute on chronic HFpEF: He has affected a good diuresis. I think his regimen can be reduced to 40mg daily by mouth 2. Aortic stenosis: Severe. Patient still scheduled for elective TAVR within the next few weeks. 3. Elevated troponin: Likely due to demand ischemia in the setting of severe aortic stenosis with acute CHF and respiratory failure with hypoxia. Nonobstructive CAD on recent cardiac catheterization. 4. Acute respiratory failure with hypoxia: resolved 5. CAD: Nonobstructive. Recommend aspirin 81 mg daily. No angina. Continue statin therapy and beta-angela. Can discontinue nitrate therapy, especially in the setting of severe aortic stenosis. 6. Dyslipidemia: Continue high-intensity statin therapy. 7. Hypertension: Mostly normotensive with episodes of mild hypotension, but asymptomatic. If blood pressure remains mildly hypotensive, would consider reducing intravenous diuretic to once daily. He seems euvolemic. If he is ambulatory and feeling well, he could be discharged today. However, it would be reasonable to keep him another day to monitor his response to oral diuresis. Hopefully more ambulatory today in anticipation of discharge Admission and Anticipated Discharge Date Admission Date: April 23, 2022 Subjective No complaints this morning. No dyspnea. No orthopnea. No dizziness or chest pain. Some ambulation Review of Systems Review of Systems: per HPI Physical Exam Physical Exam: Gen.: No acute distress. Alert. Oriented. Answered questions appropriately HEENT: Anicteric sclera. Cardiac: PMI was nonpalpable. No ventricular heave. Regular. Normal S1. Soft S2. 2/6 late peaking systolic ejection murmur heard best at right upper sternal border. No rubs or gallops. Pulmonary: Clear. Normal respiratory effort Extremities: 2+ radial pulses bilaterally. 2+ posterior tibialis pulses bilaterally. No edema. No cyanosis. Results & Data ([facility]) Vital Signs (Past 12 Hours) Vital Signs Temp Pulse Pulse Resp BP Pulse Ox O2 Del Method 04/26/22 08:00 66 04/26/22 07:57 36.5 C 66 17 135/61 96 Room Air 04/26/22 03:32 36.7 C 68 18 132/54 L 92 Room Air 04/25/22 22:15 70 04/25/22 23:15 36.9 C 69 18 126/49 L 91 Room Air Laboratory Results Abnormal Lab Results 04/25/22 04/25/22 04/25/22 11:14 15:59 20:15 WBC RBC Hgb Hct MCV MCH MCHC RDW Std Deviation RDW Coeff of Mac Plt Count MPV Immature Gran % (Auto) Neut % (Auto) Lymph % (Auto) Love % (Auto) Eos % (Auto) Baso % (Auto) Neut # (Auto) Lymph # (Auto) Love # (Auto) Eos # (Auto) Baso # (Auto) Immature Gran # (Auto) Sodium Potassium Chloride Carbon Dioxide Anion Gap BUN Creatinine Est Cr Clr Drug Dosing Est GFR ( Amer) Est GFR (Non-Af Amer) BUN/Creatinine Ratio Glucose POC Glucose 131 H 109 H 90 Calcium 04/26/22 04/26/22 04/26/22 06:16 06:16 07:34 WBC 10.09 RBC 4.29 L Hgb 12.0 L Hct 38.9 L MCV 90.7 MCH 28.0 MCHC 30.8 L RDW Std Deviation 58.3 H RDW Coeff of Mac 17.5 H Plt Count 283 MPV 10.0 Immature Gran % (Auto) 0.3 Neut % (Auto) 73.7 Lymph % (Auto) 13.6 Love % (Auto) 9.6 Eos % (Auto) 2.3 Baso % (Auto) 0.5 Neut # (Auto) 7.44 H Lymph # (Auto) 1.37 Love # (Auto) 0.97 H Eos # (Auto) 0.23 Baso # (Auto) 0.05 Immature Gran # (Auto) 0.03 H Sodium 139 Potassium 3.7 Chloride 99 Carbon Dioxide 31 Anion Gap 9 BUN 32 H Creatinine 1.79 H Est Cr Clr Drug Dosing 36.7 Est GFR ( Amer) 40.9 Est GFR (Non-Af Amer) 35.3 BUN/Creatinine Ratio 17.9 Glucose 110 H POC Glucose 117 H Calcium 9.4 PG Care Time/CCT Total # of Minutes Spent Total Time Spent with Patient: Total time spent is greater than 50% in coordination of care (as documented) at patient's floor/unit and/or counseling patient: Coding Level of Care Code 76897 Subseq Hosp Care Lvl 2 Diagnoses Acute on chronic heart failure with preserved ejection fraction (HFpEF) I50.33 Aortic stenosis I35.0 Elevated troponin R77.8 Acute respiratory failure with hypoxia J96.01 CAD (coronary artery disease) I25.10 Hypertension I10 Dyslipidemia E78.5
--- NOTE | 2022-04-26 18:46 | Billing Data ---
Date of Service April 26, 2022 Coding Level of Care Code 35987 Subseq Hosp Care Lvl 2
[2022-04-27 07:21] LABS: BUN Creatinine Ratio 18.5 (10-20); Calcium 9.6 mg/dl (8.5-10.1); Creatinine Clr Calc Pharmacy 37.9 ml/min; Est GFR (African American) 42.6 ml/min; Est GFR (Non-African American) 36.7 ml/min; Potassium 3.5 mmol/L (3.5-5.1)
--- NOTE | 2022-04-27 07:42 | Hospitalist Progress Note ---
Date of Service April 27, 2022 Assessment & Plan (1) Acute on chronic heart failure with preserved ejection fraction (HFpEF): Plan: Juancho Bronson is a 81 y/o male who presented to the ED on 04/23 for shortness of breath. His PMH includes s/p lobectomy, HFpEF, aortic stenosis, T2DM, CKD. Patient has responded well to diuresing today, patient admits he has not been compliant with salt content lately. Case has been discussed with [facility] (Dr. Barnett), awaiting TAVR on May 05. Plan for now is to keep him at least through the weekend in hopes to prevent a readmission prior to his TAVR procedure. f/u pcp josie? [facility] cards [place] Acute on Chronic Heart Failure with Preserved Ejection Fraction (HFpEF) -BNP at admission: 735 -CXR: pulmonary vascular congestion, small left pleural effusion -Heart failure likely exacerbated by known severe aortic stenosis -Cardiology consulted, appreciate recommendations -Fluid status: no signs of hypervolemia at this time. -Continue strict I's&O's, daily weights -Continue diuresing, Initially on IV Lasix 40mg BID and then IV Lasix 20mg BID. Switched to PO Lasix 40mg QAM starting this morning. Will continue to monitor fluid status. Acute Respiratory Failure with Hypoxia - Secondary to severe Acute Respiratory Acidosis (Resolved) - Hypoxia due to severe , mixed restrictive/obstructive lung disease. - BIPAP. Initial VBG 7.24/63/79/27. - Patient is somnolent and not moving air incredibly well, could be due to receiving lorazepam in ED as patient initially presented quite anxious. Has underlying mixed restrictive/obstructive lung dz. - Strict wishes previously expressed by patient that he would not want to be intubated under any circumstances. - Repeat VBG on 04/23 showed 7.36/53/52/30. No further treatment or intervention is needed at this time. Aortic Stenosis -Severe, recently evaluated for TAVR at [facility] with Dr. Barnett (procedure date planned for 05/05/22) -Echo from 04/23: severe , EF: 50-55% Acute Kidney Injury Superimposed on CKD -Cr 1.92 yesterday, 1.79 today, baseline 1.5-1.7 -Improving but still slightly over baseline. -Likely due to hypoperfusion from -Will continue to monitor on daily labs, avoid nephrotoxins agents. Elevated Troponin - Elevated to 3200, Likely in the setting of severe and hypoxia to 60s at home, this does not represent ACS. His EKG appears similar to previous. - EKG w/o reports of CP or anginal equivalent symptoms. Nonocclusive Coronary Atherosclerosis of [place] Coronary Artery - Continue ASA, statin, Ranexa; metoprolol on hold given low BPs while diuresing. - EKG with similar ST depressions in lateral leads that have been seen previously. Diabetes Mellitus, Type 2 - Lantus 15 u BID with SSI (25 CF, 8 CR) - Accuhecks ACHS/q6h while NPO. 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 - Obstructive due to prior tobacco chew, chemical exposure at work - Continue Anoro daily, albuterol prn. Diet: Low sodium diet DVT PPx: SCDs and heparin Code Status: DNR/DNI Dispo: Will see how patient does with the oral dose of Lasix. Will encourage patient to get up and moving. Will most likely be D/C tomorrow. (2) Aortic stenosis: (3) Elevated troponin: (4) Acute respiratory failure with hypoxia: (5) Acute respiratory acidosis: (6) Acute kidney injury superimposed on CKD: (7) Anemia: (8) Nonocclusive coronary atherosclerosis of [place] coronary artery: (9) Diabetes mellitus, type 2: (10) GERD (gastroesophageal reflux disease): (11) Mixed restrictive and obstructive lung disease: (12) Obstructive sleep apnea syndrome: (13) S/P lobectomy of lung: Admission and Anticipated Discharge Date Admission Date: April 23, 2022 Supervising Physician Co-Signing Physician Notes I also saw the patient and confirmed mccrary portions of the history and physical examination. I agree with the impression and plan as noted in the resident documentation. Upon our midmorning exam, the patient is resting semireclined in bed without complaints. Specifically, denies any chest pain or shortness of breath. We spent some time this morning discussing his regimen for his heart failure, focusing on his dietary intake of salt. His TAVR is now scheduled for May 05; discussed the importance of maintaining his current fluid level/weight in the lead up to his scheduled surgery. Exam 110/56, 63, 16, 36.5, 90% on room air Heart regular with 2/6 late peaking murmur, right sternal border, upper. No rubs or gallops are appreciated. Lungs clear with nonlabored respirations. Lower extremity without noted edema. Data Sodium 137, potassium 3.5, BUN 32, creatinine 1.73 Impression and Plan Acute on chronic HFpEF Aortic stenosis, elective TAVR 05/05 at [facility] Acute respiratory failure with hypoxia, resolved Discharged home today with outpatient follow-up with PCP and/or heart failure clinic Again discussed importance of diet with regards to salt, fluid intake, and outpatient diuretic therapy Additional diagnoses per resident documentation Subjective Patient is doing well today. Review of Systems Review of Systems: See above. Physical Exam Constitutional: WD/WN, vitals as above Respiratory: no increased work of breathing Cardiovascular: clinically well perfused Skin: no rashes, warm and dry Psychiatric: A+Ox3, euthymic affect Results & Data Results & Data ([facility]) Vital Signs (Past 12 Hours) Vital Signs Temp Pulse Pulse Pulse Resp BP Pulse Ox 04/27/22 03:24 36.8 C 67 18 131/55 L 94 04/27/22 00:25 36.8 C 73 18 119/56 L 92 04/26/22 22:10 70 04/26/22 19:41 36.9 C 74 14 132/63 96 O2 Del Method 04/27/22 03:24 Room Air 04/27/22 00:25 Room Air 04/26/22 22:10 04/26/22 19:41 Room Air Laboratory Results 04/27/22 04/27/22 04/26/22 Range/Units 07:44 06:22 19:48 Sodium 137 (136-145) mmol/L Potassium 3.5 (3.5-5.1) mmol/L Chloride 99 (98-107) mmol/L Carbon Dioxide 30 (21-32) mmol/L Anion Gap 8 (3-11) BUN 32 H (6-23) mg/dl Creatinine 1.73 H (0.6-1.4) mg/dl Est Cr Clr Drug Dosing 37.9 ml/min Est GFR ( Amer) 42.6 ml/min Est GFR (Non-Af Amer) 36.7 ml/min BUN/Creatinine Ratio 18.5 (10-20) Glucose 113 H (70-99(Fasting)) mg/dl POC Glucose 199 H 126 H (70-99) mg/dl Calcium 9.6 (8.5-10.1) mg/dl 04/26/22 04/26/22 Range/Units 16:04 11:05 Sodium (136-145) mmol/L Potassium (3.5-5.1) mmol/L Chloride (98-107) mmol/L Carbon Dioxide (21-32) mmol/L Anion Gap (3-11) BUN (6-23) mg/dl Creatinine (0.6-1.4) mg/dl Est Cr Clr Drug Dosing ml/min Est GFR ( Amer) ml/min Est GFR (Non-Af Amer) ml/min BUN/Creatinine Ratio (10-20) Glucose (70-99(Fasting)) mg/dl POC Glucose 122 H 158 H (70-99) mg/dl Calcium (8.5-10.1) mg/dl
[2022-04-27] MEDS: INSULIN ASPART PER UNIT SC SCH ×3 (08:03→16:37)
[2022-04-27] MEDS: LANTUS PER UNIT CHARGE SQ SCH (08:04)
[2022-04-27] MEDS: ROSUVASTATIN CALCIUM 20 MG TAB PO SCH (08:22)
[2022-04-27] MEDS: MULTIVITAMIN TAB PO SCH (08:22)
[2022-04-27] MEDS: PANTOprazole 40 MG TAB PO SCH (08:22)
[2022-04-27] MEDS: guaiFENesin 600 MG TABCR PO SCH (08:22)
[2022-04-27] MEDS: ISOSORBIDE MONO EXTENDED REL 60 MG TABCR PO SCH (08:23)
[2022-04-27] MEDS: UMECLIDINIUM/VILANTEROL 62.5/25MCG 7 PUFFS/INHALER INH SCH (08:23)
[2022-04-27] MEDS: FLUTICASONE PROPIONATE NA SPR 16 GM BTL SCH (08:23)
[2022-04-27] MEDS: HEPARIN SOD 5,000 UNIT/0.5 ML VIAL SQ SCH (08:23)
[2022-04-27] MEDS: ASPIRIN 81 MG ECTAB PO SCH (08:23)
[2022-04-27] MEDS: METOPROLOL SUCC 50MG EXT REL TAB PO SCH (08:23)
[2022-04-27] MEDS: GABAPENTIN 300 MG CAP PO SCH (08:23)
[2022-04-27] MEDS: FUROSEMIDE 40 MG TAB PO SCH (08:23)
--- NOTE | 2022-04-27 16:28 | Discharge Summary ---
Date of Service April 27, 2022 Admission HPI Per Admitting Provider Juancho Bronson is a 73-year-old male with a past medical history significant for HFpEF, severe aortic stenosis, CAD, CKD, hypertension, hyperlipidemia, GERD, VADIM, and adenocarcinoma restrictive/obstructive lung disease, s/p lobectomy in 2018 who is presenting today due to shortness of breath at home. For several days he has felt generally unwell and fatigued. Over the past several days he has noticed swelling in his legs and this morning, was acutely short of breath. EMS was called to the home and notes that when they arrived patient's oxygen saturation was in the 60s. He was given a breathing treatment, full dose aspirin, and nitroglycerin. He has had several hospitalizations over the past 2 months for CHF, in the setting of severe aortic stenosis and noncompliance with CPAP and low-sodium diet. Since discharge on 03/20, patient was evaluated at [facility] for TAVR. He has had preop echo and chest CT done, however has not heard back yet about a scheduled procedure date. He saw his manager agricultural on 04/16 again advised to decrease sodium intake and use CPAP at night. No new medications were started at that time. On presentation to the ED, oxygen was 86%, he was placed on BiPAP, now with SPO2 >92%. He is tachycardic with HR 110s, tachypneic with RR 30s, hypertensive however now becoming borderline hypotensive with BP 90s/40s after receiving Lasix and lorazepam in the ED. CXR shows pulmonary edema. Labs significant for an elevated WBC 17 with left shift, however procalcitonin is negative. VBG 7.24/63/79/27. His creatinine is 2.20, baseline 1.51.7. Lactate 1.5. Troponin 60, BNP 735, decreased from last admission. Urine does not appear infected. Respiratory bio fire panel negative across. Prior to arrival, patient received full dose ASA and nitroglycerin. He has recei arun 80 mg IV Lasix and 1 mg IV lorazepam in the ED. Patient has been somnolent since arrival, possibly due to receiving Ativan here and per , also received a dose of Ativan in the field. Admission Exam Per Admitting Provider General: Patient is drowsy, on BiPAP. Head: Normocephalic, atraumatic ENT: PERRL, EOMI, no pharyngeal exudate, mucous membranes moist Chest: rhonchi appreciated throughout, moving air Cardiac: Tachycardic rate, regular rhythm, murmurs difficult to appreciate due to breath sounds on BiPAP; normal peripheral pulses, good capillary refill Abdominal: NABS x 4 quadrants, soft, nontender to palpation, no rebound, guarding or tenderness Extremities: b/l pedal edema; calfs nontender to palpation Psych: unable to assess due to somnolent state Neuro: unable to assess due to somnolent state Skin: no rash or erythema Principal Diagnosis Acute HF exacerbation 2/2 Discharge Exam Constitutional WD/WN, vitals as above Respiratory no increased work of breathing Cardiovascular crescendo decrescendo systolic murmur consistent with , clinically well perfused. Skin no rashes, warm and dry Psychiatric A+Ox3, euthymic affect Discharge Data Allergies Allergy/AdvReac Type Severity Reaction Status Date / Time sulfamethoxazole Allergy Hives Verified 04/16/22 14:25 [From Bactrim] trimethoprim [From Bactrim] Allergy Hives Verified 04/16/22 14:25 Consultations 04/23/22 12:51 ED Decision to Admit Stat 04/23/22 14:26 Consult Cardiology Routine Ordered Studies Chest X-Ray 04/23/22 10:55 XR chest 1V portable CLINICAL HISTORY: Sepsis TECHNIQUE: Single frontal radiograph of the chest was obtained. Comparison: Comparison is made to chest radiograph 03/17/2022 FINDINGS: No lines and tubes are seen. Cardiomegaly is noted. There is prominence and cephalization of the vasculature with Noemy B lines seen. Diffuse airspace opacities are somewhat increased from prior exam. Small left pleural effusion. IMPRESSION: At least moderate pulmonary edema. Diffuse airspace opacities may represent pneumonia, atelectasis, aspiration, and/or alveolar edema. There is a small left pleural effusion. 04/27/22 04/27/22 04/27/22 Range/Units 11:29 07:44 06:22 Sodium 137 (136-145) mmol/L Potassium 3.5 (3.5-5.1) mmol/L Chloride 99 (98-107) mmol/L Carbon Dioxide 30 (21-32) mmol/L Anion Gap 8 (3-11) BUN 32 H (6-23) mg/dl Creatinine 1.73 H (0.6-1.4) mg/dl Est Cr Clr Drug Dosing 37.9 ml/min Est GFR ( Amer) 42.6 ml/min Est GFR (Non-Af Amer) 36.7 ml/min BUN/Creatinine Ratio 18.5 (10-20) Glucose 113 H (70-99(Fasting)) mg/dl POC Glucose 187 H 199 H (70-99) mg/dl Calcium 9.6 (8.5-10.1) mg/dl 04/26/22 Range/Units 19:48 Sodium (136-145) mmol/L Potassium (3.5-5.1) mmol/L Chloride (98-107) mmol/L Carbon Dioxide (21-32) mmol/L Anion Gap (3-11) BUN (6-23) mg/dl Creatinine (0.6-1.4) mg/dl Est Cr Clr Drug Dosing ml/min Est GFR ( Amer) ml/min Est GFR (Non-Af Amer) ml/min BUN/Creatinine Ratio (10-20) Glucose (70-99(Fasting)) mg/dl POC Glucose 126 H (70-99) mg/dl Calcium (8.5-10.1) mg/dl Hospital Course (1) Acute on chronic heart failure with preserved ejection fraction (HFpEF): Juancho Bronson is a 81 y/o male who presented to the ED on 04/23 for shortness of breath. His PMH includes s/p lobectomy, HFpEF, aortic stenosis, T2DM, CKD. Patient has responded well to diuresing today, patient admits he has not been compliant with salt content lately. Case has been discussed with Shruthi (Dr. Barnett), awaiting TAVR on May 05. He is stable for discharge home to await his procedure. Strongly recommended fluid and salt restriction to avoid rehospitalization. Acute on Chronic Heart Failure with Preserved Ejection Fraction (HFpEF) BNP at admission: 735. CXR: pulmonary vascular congestion, small left pleural effusion Heart failure likely exacerbated by known severe aortic stenosis. Cardiology consulted, appreciate recommendations. No signs of hypervolemia at this time. He was adequately diuresed with IV Lasix and discharged on home dose of 40 mg QD. Weight at time of discharge: 91.4 kg Acute Respiratory Failure with Hypoxia Secondary to severe Acute Respiratory Acidosis - resolved Hypoxia due to severe , mixed restrictive/obstructive lung disease. BIPAP. Initial VBG 7.24/63/79/27. Patient was somnolent and not moving air well, could be due to receiving lorazepam in ED as patient initially presented quite anxious. Has underlying mixed restrictive/obstructive lung diagnosis. Strict wishes previously expressed by patient that he would not want to be intubated under any circumstances. Repeat VBG on 04/23 showed 7.36/53/52/30. No further treatment or intervention is needed at this time. Aortic Stenosis Severe, recently evaluated for TAVR at [facility] with Dr. Barnett (procedure date planned for 05/05/22). Echo from 04/23: severe , EF: 50-55% Acute Kidney Injury Superimposed on CKD Cr 2.2 on admission, 1.73 at the time of discharge. Baseline 1.5-1.7. Likely due to hypoperfusion from Elevated Troponin Elevated to 3200, Likely in the setting of severe and hypoxia to 60s at home, this does not represent ACS. His EKG appears similar to previous. EKG w/o reports of CP or anginal equivalent symptoms. Nonocclusive Coronary Atherosclerosis of [place] Coronary Artery Continue ASA, statin, Ranexa. Metoprolol on hold given low BPs while diuresing. EKG with similar ST depressions in lateral leads that have been seen previously. Resumed home meds on discharge. Diabetes Mellitus, Type 2 Lantus 15 u BID with SSI (25 CF, 8 CR). Acuchecks ACHS/q6h while NPO. A1c last admission 7.0%. Resumed home meds on discharge GERD Continued PPI Mixed Restrictive and Obstructive Lung Disease PFTs 11/25/2020: Moderate-severe restrictive lung disease, no obstruction, i nsignificant bronchodilator response, air trapping appreciated, moderate decrease in DLCO which corrects for VA (Patient has history of left upper lobectomy 03/2018) - FVC 1.67 L, 44%, FEV1 1.23 L, 46%, FEV1/FVC 80%, RV 69%, TLC 55%, RV/TLC 127%, DLCO 55%, DLCO/VA 112% Restrictive due to obesity, lobectomy. Obstructive due to prior tobacco chew, chemical exposure at work. Continue Anoro daily, albuterol prn. (2) Aortic stenosis: (3) Elevated troponin: (4) Acute respiratory failure with hypoxia: (5) Acute respiratory acidosis: (6) Acute kidney injury superimposed on CKD: (7) Anemia: (8) Nonocclusive coronary atherosclerosis of [place] coronary artery: (9) Diabetes mellitus, type 2: (10) GERD (gastroesophageal reflux disease): (11) Mixed restrictive and obstructive lung disease: (12) Obstructive sleep apnea syndrome: (13) S/P lobectomy of lung: Total Time Total Time Spent Total Time Spent (In Minutes): 30 minutes Discharge Plan Discharge Items Patient Disposition: Home - Self-Care Reason For Visit: ACUTE HEART FAILURE EXACERBATION Discharge Diagnosis: Heart Failure Exacerbation Activity: Per Instructions section Non-emergency contact: Primary Care Provider and Ghost Writer Call non-emergency contact if: your symptoms worsen and your pain is not controlled Follow-up/Referrals: Mikie Garland Jr, MD, [facility] [Physician] - Mili Barnes MD [Primary Care Provider] - Diet: Heart Healthy and Low Sodium (2gm) Fluids: 1800ml (7 cups) Addtl Attending Provider Instructions: You were admitted for CHF (congestive heart failure) exacerbation. You were treated with diuretics to help remove extra fluid from your body. Your symptoms have improved and we feel it is safe for you to return home. Medications: Your medication list has been reviewed and reconciled upon discharge to ensure a ccuracy and continuity of care. An updated list of all your medications is included with your hospital discharge paperwork. Please review this list closely, and make note of any changes. Take your medications as instructed. Do not skip a dose of your medicines. Make sure all of your doctors know all of the medicines you are taking (including gnks-jsz-ndzmrbx medicines, vitamins, and supplements). Call your primary care provider before taking any new medicines (including lhsk-qvy-jcnmcme medicines, vitamins, and supplements), because some of these may interact with your current medications, or may make your symptoms worse. Tell your primary care provider if you cannot afford your medications. Activity: You can do normal everyday activities as your body allows. Take rest breaks if you feel tired. Do not over exert. Stop activity if you have pain, shortness of breath or feel dizzy. Weight: It is important for you to monitor your daily weights. Weigh yourself every morning using the same scale. Wear the same amount of clothing each time, without anything in your pockets. Keep a log of your daily weights, and bring this log with you every time you see your primary care physician, or any other doctor. Call your primary care physician if you gain more than 2-3 pounds in 1-2 days. Diet: Follow a low sodium (salt) diet. We recommend limiting your sodium intake to under 2000mg per day. Choose foods and drinks with low or no salt. Remove the salt shaker from your table at home. We also recommend limiting your daily fluid intake to 1800mL (60oz) in order to help your body balance fluids. Do not drink excessive beer, alcohol, or wine. If you are struggling with these restrictions, or need additional help incorporating healthy habits into your daily life, please contact your primary care provider. Follow-up appointments: Make an appointment with your primary care physician within one week of discharge. A copy of this summary will be sent to them. Every time you see your primary care physician, or any other doctor, bring your medication list, a list of questions, and your recent weights. We have requested a follow-up appointment with your manager agricultural, Dr. Garland. His office will be in contact with you regarding the appointment date and time. If you have not heard from them by , call their office at [phone]. We have requested a follow-up appointment with your primary care physician, Dr. Barnes. His office will be in contact with you regarding the appointment date and time. If you have not heard from them by , call their office at [phone]. CONTACT YOUR PRIMARY CARE PROVIDER if you experience any of the following: Shortness of breath or have more difficulty breathing Swelling of your feet, ankles, hands or abdomen Feeling tired with normal activity or experiencing dizziness or fainting Difficulty following your treatment plan, or difficulty taking medications CALL 911 OR GO TO THE EMERGENCY DEPARTMENT if you experience any of the following: Severe abdominal pain Severe nausea/vomiting Severe chest pain, or chest pain that radiates (moves) to your jaw or arm Sudden, severe shortness of breath or difficulty breathing Thank you for allowing us to participate in your care. Pending Studies at Discharge: No Stand-Alone Forms: My [facility], Smoking Cessation Medications and DC Order Prescriptions: Continued (DME) Flutter Valve Device See Rx Instructions .MEDSUPPLY Qty: 1 0RF Rx Instructions: Use it every 6 hours when awake. fluticasone propionate [Allergy Relief (fluticasone)] 50 mcg/actuation spray,suspension 1 spray intranasal DAILY Qty: 9.9 3RF Rx Instructions: administer into each nostril once daily Anoro Ellipta 62.5-25 mcg/actuation blister with device 1 inh inhalation DAILY Qty: 60 3RF Trulicity 0.75 mg/0.5 mL pen injector 0.75 mg subcut .weekly Qty: 6 1RF Rx Instructions: TAKE THIS MED EVERY WEDNESDAY pantoprazole 40 mg tablet,delayed release (DR/EC) 40 mg PO BID Qty: 60 2RF guaifenesin [Mucinex] 1,200 mg tablet extended release 12hr 1,200 mg PO BID (DME) CPAP Machine Misc See Rx Instructions .ROUTE .MEDSUPPLY Qty: 1 0RF Rx Instructions: AUTO CPAP MIN 6 MAX 16. HEATED HUMIDITY. FULL FACE MASK OF CHOICE. CPAP SUPPLIES. MICHAEL 99. CARE PLUS O2 (DME) Aeroneb Go Nebulizer Misc See Rx Instructions .MEDSUPPLY Qty: 1 0RF Rx Instructions: With tubing and supplies. J44.9. J45.9. (DME) CPAP Supplies Misc See Rx Instructions .MEDSUPPLY Qty: 1 0RF Rx Instructions: Mask refitting. G47.33 rosuvastatin 40 mg tablet 40 mg PO DAILY Qty: 90 3RF metoprolol succinate 100 mg tablet extended release 24 hr 100 mg PO DAILY Qty: 90 3RF empagliflozin 10 mg tablet 10 mg PO DAILY Qty: 90 0RF gabapentin 300 mg capsule 300 mg PO BID Qty: 180 1RF Humalog Mix 75-25(U-100)Insuln 100 unit/mL (75-25) suspension 50 unit SUBCUT QPM Humalog Mix 75-25(U-100)Insuln 100 unit/mL (75-25) suspension 75 unit SUBCUT QAM ipratropium-albuterol 0.5 mg-3 mg(2.5 mg base)/3 mL solution for nebulization 3 ml inhalation Q8H PRN (Reason: shortness of breath or wheezing) Qty: 270 3RF potassium chloride 10 mEq capsule, extended release 20 meq PO .COMPLEX Rx Instructions: 20 mEq PO Every other day; multivitamin Tablet 1 tab PO QAM aspirin 81 mg Tablet,Delayed Release (Dr/Ec) 81 mg PO BID isosorbide mononitrate 60 mg tablet extended release 24 hr 60 mg PO DAILY furosemide 40 mg tablet 40 mg PO DAILY Qty: 30 0RF ferrous sulfate 324 mg (65 mg iron) tablet,delayed release (DR/EC) 324 mg PO Q OTHER DAY Qty: 30 0RF Discharge Orders: Discharge Order (Routine); Ordered 04/27/22 Ordered By: Allan Abraham Admission Data Admit Date/Time: 04/23/22 13:01 Attending Provider: Mirza Cash Admit Provider: Andie Zaman Primary Care Provider: Mili Barnes Other Providers: Jeyson Olguin ; Joaqíun Murray Other Interventions: Discharge Summary Assessment (RN) Last Done: 04/27/22 16:01 Supervising Physician Co-Signing Physician Notes I also saw the patient and confirmed mccrary portions of the history and physical examination. I agree with the impression and plan as noted in the resident documentation. Upon our midmorning exam, the patient is resting semireclined in bed without complaints. Specifically, denies any chest pain or shortness of breath. We spent some time this morning discussing his regimen for his heart failure, focusing on his dietary intake of salt. His TAVR is now scheduled for May 05; discussed the importance of maintaining his current fluid level/weight in the lead up to his scheduled surgery. Exam 110/56, 63, 16, 36.5, 90% on room air Heart regular with 2/6 late peaking murmur, right sternal border, upper. No rubs or gallops are appreciated. Lungs clear with nonlabored respirations. Lower extremity without noted edema. Data Sodium 137, potassium 3.5, BUN 32, creatinine 1.73 Impression and Plan Acute on chronic HFpEF Aortic stenosis, elective TAVR 05/05 at [facility] Acute respiratory failure with hypoxia, resolved Discharged home today with outpatient follow-up with PCP and/or heart failure clinic Again discussed importance of diet with regards to salt, fluid intake, and outpatient diuretic therapy Additional diagnoses per resident documentation Resident Activity Tracking Resident Involvement: Resident Care Provided Care Provided: Adult Hospital Medicine
== END 2022-04-27 17:14 | disposition home or self-care (01) | DRG 291 ==
LOC: ED 11:06 → SUATTDRO 13:01 → 2E 13:01
DX: Z88.2 Allergy status to sulfonamides; Z79.899 Other long term (current) drug therapy; F41.9 Anxiety disorder, unspecified; Z79.51 Long term (current) use of inhaled steroids; Z91.199 Patient's noncompliance with other medical treatment and regimen due to unspecified reason; J44.9 Chronic obstructive pulmonary disease, unspecified; Z66 Do not resuscitate; N17.9 Acute kidney failure, unspecified; G47.33 Obstructive sleep apnea (adult) (pediatric); Z85.118 Personal history of other malignant neoplasm of bronchus and lung; I50.33 Acute on chronic diastolic (congestive) heart failure; T42.4X5A Adverse effect of benzodiazepines, initial encounter; N18.9 Chronic kidney disease, unspecified; I13.0 Hypertensive heart and chronic kidney disease with heart failure and stage 1 through stage 4 chronic kidney disease, or unspecified chronic kidney disease; J96.01 Acute respiratory failure with hypoxia; Z79.4 Long term (current) use of insulin; Z87.891 Personal history of nicotine dependence; I25.10 Atherosclerotic heart disease of native coronary artery without angina pectoris; J98.4 Other disorders of lung; Z79.82 Long term (current) use of aspirin; D64.9 Anemia, unspecified; E66.9 Obesity, unspecified; E78.5 Hyperlipidemia, unspecified; E11.22 Type 2 diabetes mellitus with diabetic chronic kidney disease; Z68.32 Body mass index [BMI] 32.0-32.9, adult; Z90.2 Acquired absence of lung [part of]; Z88.1 Allergy status to other antibiotic agents; I24.8 Other forms of acute ischemic heart disease; K21.9 Gastro-esophageal reflux disease without esophagitis; J96.02 Acute respiratory failure with hypercapnia; I35.0 Nonrheumatic aortic (valve) stenosis; Z91.119 Patient's noncompliance with dietary regimen due to unspecified reason; R40.0 Somnolence

== ENCOUNTER 2024-07-16 16:26 | Inpatient (IN) ==
[2024-07-16 16:57] LABS: iSTAT Creatinine 1.7 mg/dl (0.6-1.3); iSTAT Hemoglobin 17.3 g/dl (14.0-18.0); iSTAT Ionized Calcium 1.17 mmol/l (1.12-1.32); iSTAT Potassium 4.3 mmol/L (3.3-5.0)
--- NOTE | 2024-07-16 16:58 | Emergency Department Note ---
Impression & Plan Closed fracture of right hip, Fall ED Provider Note Provider: Nemesio Schaefer MD CHIEF COMPLAINT: Fall, right hip pain HISTORY OF PRESENT ILLNESS: Patient is a 83-year-old gentleman history of lung cancer, type 2 diabetes, CKD restrictive lung disease, TAVR, CAD, hypertension presenting here today via ambulance from home. Patient is on low-dose baby aspirin daily. Reports he was using a charles to move some cinderblocks outside of his house. Evidently the charles went forward and he fell backwards landing on his right hip and then rolled down a small embankment towards his house. States he closes eyes for second but does not think he lost consciousness. Reports some pain in the right hip but unable to walk since the fall. Is a bit cold. Lives with and she called 911 and they brought him here for evaluation. No pain meds prior to arrival. Denies new numbness or tingling in extremities but has some underlying diabetes. Denies significant nausea, abdominal pain, chest pain, or headache at this time. Denies neck pain. Denies significant pain in the left arm/leg or right arm. Was noted to be hypertensive by EMS. PAST MEDICAL HISTORY: As noted above MEDICATIONS: Reviewed home medications include 81 mg aspirin SOCIAL HISTORY: Former smoker, PHYSICAL EXAM: GENERAL: alert and oriented in no acute distress on stretcher, hard of hearing Head: normocephalic and atraumatic EYES: No injection, discharge or icterus. PERRL, EOMI. NECK: Trachea midline. Supple without midline cervical tenderness ENT: Mucous membranes pink and moist. LUNGS: Airway patent. No retractions. Breath sounds clear with good air entry bilaterally. HEART: Regular rate and rhythm. No chest wall tenderness ABDOMEN: Soft and non-tender, without guarding or rebound. Stable pelvis. SKIN: Acyanotic, warm, dry, without rashes EXTREMITIES: Without swelling, tenderness or deformity pain however with any range of motion of the right hip. No tenderness of the bilateral knees calves or ankles/feet. NEUROLOGICAL: No focal deficits. No aphasia. No facial droop or slurred speech. Normal strength and tone in the extremities. Sensation to gross touch normal particular with intact sensation of the bilateral feet. Ambulatory. EK bpm normal sinus rhythm. No PVC or PAC. No acute ST segment elevation with a QTc of 456. CONTINUOUS CARDIAC MONITORING: was ordered and showed a heart rate of 60s to 80s bpm in normal sinus rhythm GCS 15. Patient's laboratory studies and imaging reviewed. Differential includes Fracture, dislocation, contusion, intra-abdominal, pneumothorax, intrathoracic, intracranial, neurologic, compartment syndrome, rhabdomyolysis, as well as other pathologies. IMPRESSION/MEDICAL DECISION MAKING: Patient suffered what sounds a mechanical fall but then did rule out small back pain into his house in the cold weather. Patient is hard of hearing here. Noted be significantly hypertensive. Denies significant head, neck, chest, or abdominal pain. Complaint of pain in the right hip worse with movement. Will obtain x-rays here to exclude fracture. Given the fact the fall and fell on baby aspirin with his age, will complete CT scan to exclude traumatic injury. Basic blood work is sent. Given a small amount of fentanyl here for pain. Blood work here without significant anemia leukocytosis. Normal electrolytes. Stable CKD. No significant transaminitis, elevated CK, elevated troponin, related lipase. This is reassuring. CT scans obtained as well as x-rays. X- ray concerning for a right femoral neck fracture. Discussed with patient and at bedside. Orthopedics on-call contacted discussed. CT scans completed without evidence of other significant concerning acute trauma. Will begin the patient further care and orthopedic treatment of his hip fracture to the medicine service. Hospitalist team contacted. DIAGNOSIS: Fall, right hip fracture DISPOSITION: Hospitalist will evaluate Patient was agreeable with this plan. 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 Implant 05/07/22 [facility] [place] Status post transcatheter aortic valve replacement (TAVR) using bioprosthesis (Chronic) Medtronic 34 mm Evolut Pro Plus AV. Implant 05/05/22 C. Allergic rhinitis with postnasal drip Pulmonary nodule Pulmonary hypertension Mixed restrictive and obstructive lung disease Obstructive sleep apnea syndrome Anemia (Chronic) Obstructive lung disease (Chronic) Dyslipidemia (Chronic) Gastro-esophageal reflux Hypertension (Chronic) Squamous cell carcinoma of lip History of lobectomy of lung left upper lobe 03/30/2018 [facility] CAD (coronary artery disease) NON-OBSTRUCTIVE Medical History VADIM (obstructive sleep apnea) COPD (chronic obstructive pulmonary disease) Restrictive lung disease Gait instability Diabetic neuropathy Pacemaker (04/2022) Aortic stenosis CHF (congestive heart failure) Non-ST elevation (NSTEMI) myocardial infarction Heart failure with preserved ejection fraction Hemoptysis Leg pain, bilateral Leukocytosis Malaise and fatigue Severe aortic stenosis Dyspnea on exertion Lung mass Mass of cecum 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 Thoracoscopic surgical procedure converted to open procedure Anemia GERD (gastroesophageal reflux disease) Hiatal hernia Hearing deficit Diabetes mellitus, type 2 Hypertension Hyperlipidemia Surgical History Hx of left cataract extraction (04/24/24) Hx of local excision of skin lesion S/P cardiac pacemaker procedure History of heart valve replacement S/P lobectomy of lung History of cardiac cath History of colonoscopy History of cholecystectomy Family History Father Cardiac disorder Myocardial infarction Other No family history of bleeding disorder Denies family history of Ovarian cancer Prostate cancer Breast cancer Colorectal cancer Social History Smoking Status: Never smoker Tobacco Type: Smokeless Tobacco (Dip or Chew) Second Hand Exposure: Yes (growing up); Do You Dip or Chew Tobacco: No (quit); Hx Alcohol Use: Yes Hx Substance Use: No Preferred Language: Tajik Communication Ability: Effective Visual Impairment: Limited Hearing Ability: Use of Hearing Aid 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 Maintenance Required: No Beliefs That Will Affect Care: None marital status: Current Living Situation: Spouse current occupational status: retired current occupation: Retired How many Children do You have: 1 Feels Safe at Home: Yes Dental Care, Regularly: Yes Physical Activity Frequency: Does not Exercise Seatbelt Use: always Sunscreen Use: No Assistive Devices: Cane Allergies Allergies Allergy/AdvReac Type Severity Reaction Status Date / Time sulfamethoxazole Allergy Hives Verified 07/14/24 09:46 [From Bactrim] trimethoprim [From Bactrim] Allergy Hives Verified 07/14/24 09:46 Home Meds Home Medications Medication Instructions Recorded Confirmed multivitamin 1 tab PO QAM 04/25/18 07/16/24 aspirin 81 mg chewable tablet 81 mg PO QAM 06/01/22 07/16/24 ferrous sulfate 324 mg (65 mg 324 mg PO Q2D 04/18/24 07/16/24 iron) tablet,delayed release Previous Rx's Medication Instructions Recorded nebulizers (Aeroneb Go Nebulizer) #1 ea 05/23/20 blood sugar diagnostic (OneTouch #120 ea 06/05/22 Ultra Test strips) ipratropium 0.5 mg-albuterol 3 mg 3 ml inhalation Q8H PRN shortness 09/11/22 (2.5 mg base)/3 mL nebulization of breath or wheezing #560 mL soln pen needle, diabetic 33 gauge x #100 ea 02/07/24 3/16" (Comfort EZ Pen [place]) pantoprazole 40 mg tablet,delayed 40 mg PO BID #180 tabs 02/29/24 release umeclidinium 62.5 mcg-vilanterol 1 inh inhalation QAM #60 ea 04/25/24 25 mcg/actuation powdr for inhalation (Anoro Ellipta) escitalopram oxalate 10 mg tablet 10 mg PO QAM #90 tabs 05/25/24 dulaglutide 1.5 mg/0.5 mL 1.5 mg (0.5 mL) subcut Q7D #6 mL 06/02/24 subcutaneous pen injector empagliflozin 10 mg tablet 10 mg PO QAM #90 tabs 06/02/24 gabapentin 400 mg capsule 400 mg PO BID #180 caps 06/02/24 insulin lispro protamine-lispro 25 unit (0.25 mL) subcut BID #60 mL 06/02/24 100 unit/mL (75-25) subcutaneous pen (Humalog Mix 75-25 KwikPen) isosorbide mononitrate 60 mg 60 mg PO QAM #90 tabs 06/02/24 tablet,extended release 24 hr metoprolol succinate 100 mg 100 mg PO QAM #90 tabs 06/02/24 tablet,extended release 24 hr olmesartan 5 mg tablet 5 mg PO QAM #90 tabs 06/02/24 rosuvastatin 40 mg tablet 40 mg PO QAM #90 tabs 06/02/24 Results & Data (ED) Vital Signs Vital Signs - 24 hr 07/16/24 16:37 07/16/24 16:38 07/16/24 17:02 Temperature 36.7 C Temperature Source Oral Pulse Rate 82 82 75 Pulse Rate [Apical] Pulse Rate from SpO2 Sensor Pulse Rhythm Regular Respiratory Rate 17 Respiratory Effort / Characteristics Non-Labored Spontaneous Respiratory Depth Normal Respiratory Pattern Blood Pressure 213/117 H Blood Pressure [Left Arm] Blood Pressure Mean 149 Blood Pressure Mean [Left Arm] Pulse Oximetry 92 91 Oxygen Delivery Method Room Air Room Air Oxygen Flow Rate Sepsis Recent Fever Within 48 Hours No Sepsis New/Unexplained Change in Mental Status N/A Sepsis Action Taken by Nursing No Action Required 07/16/24 17:02 07/16/24 17:03 07/16/24 18:00 Temperature Temperature Source Pulse Rate 65 74 64 Pulse Rate [Apical] Pulse Rate from SpO2 Sensor 72 75 Pulse Rhythm Respiratory Rate 24 16 18 Respiratory Effort / Characteristics Respiratory Depth Respiratory Pattern Blood Pressure 185/86 H 185/86 H 133/54 L Blood Pressure [Left Arm] Blood Pressure Mean 127 119 80 Blood Pressure Mean [Left Arm] Pulse Oximetry 92 91 Oxygen Delivery Method Room Air Oxygen Flow Rate Sepsis Recent Fever Within 48 Hours Sepsis New/Unexplained Change in Mental Status Sepsis Action Taken by Nursing 07/16/24 19:00 07/16/24 20:26 07/16/24 21:03 Temperature Temperature Source Pulse Rate 67 Pulse Rate [Apical] 69 69 Pulse Rate from SpO2 Sensor Pulse Rhythm Respiratory Rate 18 16 Respiratory Effort / Characteristics Spontaneous Labored Non-Labored Spontaneous Respiratory Depth Normal Normal Respiratory Pattern Regular Blood Pressure Blood Pressure [Left Arm] 183/96 H 165/75 H Blood Pressure Mean Blood Pressure Mean [Left Arm] 125 105 Pulse Oximetry 99 98 Oxygen Delivery Method Nasal Cannula Room Air Oxygen Flow Rate 3 Sepsis Recent Fever Within 48 Hours Sepsis New/Unexplained Change in Mental Status Sepsis Action Taken by Nursing Laboratory Data 07/16/24 16:40 07/16/24 16:40 Lab Results 07/16/24 07/16/24 07/16/24 Range/Units 16:40 16:45 18:39 WBC 8.96 (4.8-10.8) K/ul RBC 5.44 (4.70-6.10) M/uL Hgb 16.6 (14.0-18.0) g/dl POC Hgb 17.3 (14.0-18.0) g/dl Hct 51.6 (42.0-52.0) % POC Hct 51 (42-52) % MCV 94.9 (80.0-100.0) fL MCH 30.5 (25.0-34.0) pg MCHC 32.2 (32.0-36.0) g/dL RDW Std Deviation 49.1 H (36.4-46.3) fL RDW Coeff of Mac 14.2 (11.5-14.5) % Plt Count 205 (130-400) K/uL MPV 10.3 (9.4-12.4) fL Immature Gran % (Auto) 0.9 % Neut % (Auto) 79.6 % Lymph % (Auto) 11.9 % [place] % (Auto) 6.1 % Eos % (Auto) 1.1 % Baso % (Auto) 0.4 % Neut # (Auto) 7.12 H (1.40-6.50) K/uL Lymph # (Auto) 1.07 L (1.20-3.40) K/uL [place] # (Auto) 0.55 (0.11-0.59) K/uL Eos # (Auto) 0.10 (0.00-0.50) K/uL Baso # (Auto) 0.04 (0.00-0.20) K/uL Immature Gran # (Auto) 0.08 (0.01-0.20) K/uL PT 10.6 (9.0-12.0) Seconds INR 1.0 (0.9-1.1) APTT 25 (21-31) Seconds PTT Ratio 0.9 POC Sodium 143 (135-144) mmol/L Sodium 141 (136-145) mmol/L POC Potassium 4.3 (3.3-5.0) mmol/L Potassium 4.3 (3.5-5.1) mmol/L POC Chloride 105 (101-112) mmol/L Chloride 106 (98-107) mmol/L Carbon Dioxide 29 (21-32) mmol/L POC Total CO2 27 (24-31) mmol/L Anion Gap 6 (3-11) POC Anion Gap 16.0 (16-25) mmol/L POC BUN 26 H (7-18) mg/dl BUN 24 H (6-23) mg/dl Creatinine 1.56 H (0.6-1.4) mg/dl POC Creatinine 1.7 H (0.6-1.3) mg/dl Est Cr Clr Drug Dosing 42.6 ml/min eGFR 44.34 BUN/Creatinine Ratio 15.4 (10-20) Glucose 126 H (70-99(Fasting)) mg/dl POC Glucose (other) 124 H (70-99) mg/dl Calcium 9.1 (8.6-10.3) mg/dl POC Ioniz Calcium [place] 1.17 (1.12-1.32) mmol/l Total Bilirubin 0.8 (0.2-1.0) mg/dl AST 23 (13-39) U/L ALT 23 (7-52) U/L Alkaline Phosphatase 49 (34-104) U/L Total Creatine Kinase 124 (30-223) U/L Troponin I High Sens 10.5 (0-20) pg/ml Total Protein 7.0 (6.0-8.3) gm/dl Albumin 4.5 (3.4-5.0) gm/dl Globulin 2.5 (2.5-4.0) gm/dl Albumin/Globulin Ratio 1.8 (0.9-2) Lipase 41 (11-82) U/L Urine Color Yellow Urine Appearance Clear (Clear) Urine pH 5.0 (4.5-7.5) Ur Specific [place] 1.018 (1.000-1.030) Urine Protein 1+ H (Negative) Urine Glucose (UA) 3+ H (Negative) Urine Ketones Negative (Negative) Urine Blood Trace H (Negative) Urine Nitrite Negative (Negative) Urine Bilirubin Negative (Negative) Urine Urobilinogen Negative (Negative) Ur Leukocyte Esterase Negative (Negative) Urine WBC (Auto) 0-5 (0-5) /hpf Urine RBC (Auto) 0-2 (0-2) /hpf U Hyaline Cast (Auto) 0-2 (0-2) /lpf U Epithel Cells (Auto) 0-2 (0-2) /hpf Urine Bacteria (Auto) None Seen (None Seen) Blood Type Antibody Screen 07/16/24 Range/Units 19:07 WBC (4.8-10.8) K/ul RBC (4.70-6.10) M/uL Hgb (14.0-18.0) g/dl POC Hgb (14.0-18.0) g/dl Hct (42.0-52.0) % POC Hct (42-52) % MCV (80.0-100.0) fL MCH (25.0-34.0) pg MCHC (32.0-36.0) g/dL RDW Std Deviation (36.4-46.3) fL RDW Coeff of Mac (11.5-14.5) % Plt Count (130-400) K/uL MPV (9.4-12.4) fL Immature Gran % (Auto) % Neut % (Auto) % Lymph % (Auto) % [place] % (Auto) % Eos % (Auto) % Baso % (Auto) % Neut # (Auto) (1.40-6.50) K/uL Lymph # (Auto) (1.20-3.40) K/uL [place] # (Auto) (0.11-0.59) K/uL Eos # (Auto) (0.00-0.50) K/uL Baso # (Auto) (0.00-0.20) K/uL Immature Gran # (Auto) (0.01-0.20) K/uL PT (9.0-12.0) Seconds INR (0.9-1.1) APTT (21-31) Seconds PTT Ratio POC Sodium (135-144) mmol/L Sodium (136-145) mmol/L POC Potassium (3.3-5.0) mmol/L Potassium (3.5-5.1) mmol/L POC Chloride (101-112) mmol/L Chloride (98-107) mmol/L Carbon Dioxide (21-32) mmol/L POC Total CO2 (24-31) mmol/L Anion Gap (3-11) POC Anion Gap (16-25) mmol/L POC BUN (7-18) mg/dl BUN (6-23) mg/dl Creatinine (0.6-1.4) mg/dl POC Creatinine (0.6-1.3) mg/dl Est Cr Clr Drug Dosing ml/min eGFR BUN/Creatinine Ratio (10-20) Glucose (70-99(Fasting)) mg/dl POC Glucose (other) (70-99) mg/dl Calcium (8.6-10.3) mg/dl POC Ioniz Calcium [place] (1.12-1.32) mmol/l Total Bilirubin (0.2-1.0) mg/dl AST (13-39) U/L ALT (7-52) U/L Alkaline Phosphatase (34-104) U/L Total Creatine Kinase (30-223) U/L Troponin I High Sens (0-20) pg/ml Total Protein (6.0-8.3) gm/dl Albumin (3.4-5.0) gm/dl Globulin (2.5-4.0) gm/dl Albumin/Globulin Ratio (0.9-2) Lipase (11-82) U/L Urine Color Urine Appearance (Clear) Urine pH (4.5-7.5) Ur Specific [place] (1.000-1.030) Urine Protein (Negative) Urine Glucose (UA) (Negative) Urine Ketones (Negative) Urine Blood (Negative) Urine Nitrite (Negative) Urine Bilirubin (Negative) Urine Urobilinogen (Negative) Ur Leukocyte Esterase (Negative) Urine WBC (Auto) (0-5) /hpf Urine RBC (Auto) (0-2) /hpf U Hyaline Cast (Auto) (0-2) /lpf U Epithel Cells (Auto) (0-2) /hpf Urine Bacteria (Auto) (None Seen) Blood Type A Positive Antibody Screen NEGATIVE Administered Medications Discontinued Medications Fentanyl Citrate (Fentanyl Citrate Pf 100 Mcg/2 Ml Vial) 25 mcg IV NOW STA Stop: 07/16/24 16:48 Last Admin: 07/16/24 16:59 Dose: 25 mcg Documented By: JEB Fentanyl Citrate (Fentanyl Citrate Pf 100 Mcg/2 Ml Vial) 25 mcg IV NOW ONE Stop: 07/16/24 18:03 Last Admin: 07/16/24 18:29 Dose: 25 mcg Documented By: YEIMY Acetaminophen (Ofirmev) 1,000 mg in 100 mls @ 400 mls/hr IV NOW STA Stop: 07/16/24 18:16 Last Admin: 07/16/24 18:30 Dose: 400 mls/hr Documented By: YEIMY Imaging Data Radiologist's Impression: Cervical Spine CT 07/16/24 16:35 EXAM: CT Cervical Spine Without Intravenous Contrast INDICATION: Trauma. TECHNIQUE: Axial computed tomography images of the cervical spine without intravenous contrast. Sagittal and coronal reformatted images were created and reviewed. This CT exam was performed using one or more of the following dose reduction techniques: automated exposure control, adjustment of the mA and/or kV according to patient size, and/or use of iterative reconstruction technique. COMPARISON: No relevant prior studies available. FINDINGS: Limitations: None. Vertebrae: The spine is tilted to the right and straightened which may be related to spasm. No fracture or subluxation. There is mild spondylosis and facet arthrosis at all levels. Small foci of calcified plaque noted in the intracranial vertebral arteries. Discs/spinal canal/neural foramina: Diffuse mild disc space narrowing noted. Soft tissues: No significant abnormality noted. Vasculature: There is moderate atherosclerosis of the cervical carotid arteries. Lung apices: No significant abnormality noted. IMPRESSION: 1. No fracture. Mild degenerative changes. 2. Significant atherosclerotic calcification of the cervical internal carotid arteries. ACT 112: Negative or not required by law. Electronically signed by Yael Morris 07-16-2024 5:52 PM Chest X-Ray 07/16/24 16:35 EXAM: Radiograph of the Chest 1 View INDICATION: Pain following fall. TECHNIQUE: Frontal view of the chest. COMPARISON: 04/23/[address] 03/01/2022 FINDINGS: Lungs and pleural spaces: Mild interstitial thickening noted less pronounced than seen previously. Suspect pleural and parenchymal scarring in the left base. No visit for pleural effusion. No pneumothorax. Heart: Stable enlargement. Right atrial and ventricular pacing wires now present. Aortic valve prosthetic stent present. Mediastinum: Normal contour. Bones/joints: Chronic appearing fracture of the lateral left seventh rib new since the previous examination. Other chronic left rib deformities are stable. Soft tissues: No abnormality noted. No radiopaque foreign body noted. Upper abdomen: No abnormality noted. IMPRESSION: 1. Left rib deformities appear chronic. If additional imaging is clinically warranted, CT recommended. 2. Shallow inspiration with chronic interstitial changes and probable left basilar pleural and parenchymal scarring. Recommend follow-up as warranted. ACT 112: Negative or not required by law. Electronically signed by Yael Morris 07-16-2024 5:[address] 07/16/24 16:35 EXAM: CT Head Without Intravenous Contrast INDICATION: Trauma. TECHNIQUE: Axial computed tomography images of the head/brain without intravenous contrast. Sagittal and/or coronal reformats are provided. Sagittal and coronal reformatted images were created and reviewed. This CT exam was performed using one or more of the following dose reduction techniques: automated exposure control, adjustment of the mA and/or kV according to patient size, and/or use of iterative reconstruction technique. COMPARISON: No relevant prior studies available. FINDINGS: Limitations: None. Brain and extra-axial spaces: There is age appropriate cortical atrophy and chronic ischemic periventricular white matter hypodensity. No acute infarct, hemorrhage or mass noted. Bones/joints: No acute changes. Soft tissues: No significant abnormality noted. Vasculature: No acute abnormality noted. Sinuses: Minimal chronic mucosal thickening right maxillary sinus. Mastoid air cells: No mastoid effusion. Orbits: No significant abnormality noted. IMPRESSION: Cerebral atrophy. No acute changes. ACT 112: Negative or not required by law. Electronically signed by Yael Morris 07-16-2024 5:50 PM Hip/Pelvis X-Ray 07/16/24 16:35 EXAM: Radiographs of the Right Hip 3 Views INDICATION: Posttraumatic pain. TECHNIQUE: Front view pelvis and AP and frog leg lateral views of the right hip. Images obtained at 5:18 PM. COMPARISON: No relevant prior studies available. FINDINGS: Limitations: None. Bones/joints: There is an acute nondisplaced fracture base of the right femoral neck. No dislocation. Soft tissues: No abnormality noted. No radiopaque foreign body noted. IMPRESSION: There is an acute nondisplaced fracture base of the right femoral neck. ACT 112: Negative or not required by law. Electronically signed by Yael Morris 07-16-2024 5:37 PM Abdomen/Pelvis CT 07/16/24 16:56 EXAM: CT Abdomen and Pelvis Without Intravenous Contrast INDICATION: Trauma. TECHNIQUE: Axial computed tomography images of the abdomen and pelvis without intravenous contrast. Sagittal and coronal reformatted images were created and reviewed. This CT exam was performed using one or more of the following dose reduction techniques: automated exposure control, adjustment of the mA and/or kV according to patient size, and/or use of iterative reconstruction technique. COMPARISON: No relevant prior studies available. FINDINGS: Limitations: Assessment of solid organ integrity limited in the absence of IV contrast. Lung bases: No abnormality noted. Pleural space: No visualized pleural effusion or pneumothorax. Heart: Cardiomegaly noted. Cardiac pacing device noted. Metallic artifact limits assessment of lead integrity. Mediastinum: No abnormality noted. ABDOMEN: Liver: Lack of intravenous contrast limits detection of some masses. No abnormality noted. Gallbladder and bile ducts: Cholecystectomy. No ductal dilation or stone noted. Pancreas: No pancreatic mass, calcification, inflammation or ductal dilation noted. Spleen: No significant abnormality noted. Adrenals: No significant abnormality noted. Kidneys and ureters: There is mild left perinephric stranding typically scarring. No hydronephrosis or urinary stone. No urinary gas. Stomach and bowel: Colonic diverticulosis without diverticulitis. No intestinal thickening or obstruction. PELVIS: Appendix: No findings to suggest acute appendicitis. Bladder: Mildly distended urinary bladder. No gas or stone. Reproductive: No abnormalities noted. ABDOMEN and PELVIS: Intraperitoneal space: No free air. No significant fluid collection. Bones/joints: There is an acute nondisplaced fracture of the right femoral neck. Degenerative changes noted throughout the spine. Chronic appearing left rib deformities. Soft tissues: No significant abnormality noted. Vasculature: Atherosclerotic calcification of the aorta and branches. No aneurysm. Lymph nodes: No pathologically enlarged lymph nodes. IMPRESSION: 1. There is an acute nondisplaced fracture of the right femoral neck. 2. Limited assessment for solid organ injury in the absence of contrast. No traumatic change of the solid organs noted. ACT 112: Negative or not required by law. Electronically signed by Yael Morris 07-16-2024 5:[address] 07/16/24 16:56 EXAM: CT Chest Without Intravenous Contrast INDICATION: Fall. TECHNIQUE: Axial computed tomography images of the chest without intravenous contrast. Sagittal and coronal reformatted images were created and reviewed. This CT exam was performed using one or more of the following dose reduction techniques: automated exposure control, adjustment of the mA and/or kV according to patient size, and/or use of iterative reconstruction technique. COMPARISON: 03/01/2022 FINDINGS: Limitations: Aortic integrity is not assessed in the absence of IV contrast. Lungs and pleural spaces: Mild scarring or atelectasis present in the bases. No consolidation. No pneumothorax. Mild left basilar pleural thickening. Heart: Cardiomegaly noted. Cardiac pacing device noted. Metallic artifact limits assessment of lead integrity. Aortic valve prosthetic stent present. Thyroid: No abnormality noted. Bones/joints: Stable old fractures of the left 5th through 8th ribs. No acute rib fracture noted. Started him and visualize shoulders intact. Degenerative. Soft tissues: No significant abnormality noted. Vasculature: Normal variant aberrant right subclavian artery. Atherosclerosis. No aneurysm. Lymph nodes: No enlarged lymph nodes. IMPRESSION: 1. Limited assessment in the absence of IV contrast. No traumatic change identified. 2. Stable old fractures of the left 5th through 8th ribs. No acute rib fracture noted. Was noted throughout the spine without fracture. ACT 112: Negative or not required by law. Electronically signed by Yael Morris 07-16-2024 6:00 PM Femur X-Ray 07/16/24 18:41 Exam(s): XR RIGHT FEMUR, 2 views EXAM: XR Right Femur, 2 Views CLINICAL HISTORY: Preop planning. TECHNIQUE: Frontal and lateral views of the right femur. COMPARISON: No relevant prior studies available. FINDINGS: Bones/joints: Mildly impacted subcapital femoral neck fracture. No dislocation. Soft tissues: Unremarkable. IMPRESSION: Mildly impacted subcapital femoral neck fracture. Electronically signed by: Shelby Ivory MD 07/16/24 20:32 PM Discharge Plan Visit Data Chief Complaint: Hip Pain Stated Complaint: FALL, R HIP PAIN ED Provider: Nemesio Schaefer Discharge Problem: Closed fracture of right hip, Fall Patient Disposition: Being Evaluated by Hospitalist Forms Stand Alone Forms: [employer] Prescriptions Prescriptions: No Action (DME) OneTouch Ultra Test Strip See Rx Instructions .Route Qty: 120 5RF Rx Instructions: Use to test 4 times daily (DME) pen needle, diabetic [Comfort EZ Pen [place]] 33 gauge x 3/16" needle See Rx Instructions .Route Qty: 100 1RF Rx Instructions: As directed pantoprazole 40 mg tablet,delayed release (DR/EC) 40 mg PO BID Qty: 180 3RF (DME) Aeroneb Go Nebulizer [facility] [place] See Rx Instructions .MEDSUPPLY Qty: 1 0RF Rx Instructions: With tubing and supplies. J44.9. J45.9. ipratropium-albuterol 0.5 mg-3 mg(2.5 mg base)/3 mL solution for nebulization 3 ml inhalation Q8H PRN (Reason: shortness of breath or wheezing) Qty: 560 4RF aspirin 81 mg tablet,chewable 81 mg PO QAM Anoro Ellipta 62.5-25 mcg/actuation blister with device 1 inh inhalation QAM Qty: 60 12RF escitalopram oxalate 10 mg tablet 10 mg PO QAM Qty: 90 3RF olmesartan 5 mg tablet 5 mg PO QAM Qty: 90 3RF dulaglutide 1.5 mg/0.5 mL pen injector 1.5 mg subcut Q7D Qty: 6 3RF Rx Instructions: TAKE THIS MED EVERY WEDNESDAY empagliflozin 10 mg tablet 10 mg PO QAM Qty: 90 3RF gabapentin 400 mg capsule 400 mg PO BID Qty: 180 3RF insulin lispro protamin-lispro [Humalog Mix 75-25 KwikPen] 100 unit/mL (75-25) insulin pen 25 unit subcut BID Qty: 60 3RF Rx Instructions: before meals isosorbide mononitrate 60 mg tablet extended release 24 hr 60 mg PO QAM Qty: 90 3RF metoprolol succinate 100 mg tablet extended release 24 hr 100 mg PO QAM Qty: 90 3RF rosuvastatin 40 mg tablet 40 mg PO QAM Qty: 90 3RF multivitamin Tablet 1 tab PO QAM ferrous sulfate 324 mg (65 mg iron) tablet,delayed release (DR/EC) 324 mg PO Q2D Referrals Referrals: Mili Bullock MD [Primary Care Provider] - Discharge Problem: Closed fracture of right hip Qualifiers: Encounter type: initial encounter Qualified Code(s): S72.001A - Fracture of unspecified part of neck of right femur, initial encounter for closed fracture
[2024-07-16] MEDS: fentaNYL citrate PF 100 MCG/2 ML VIAL IV STA (16:59)
[2024-07-16 17:05] LABS: Basophils # (auto) 0.04 K/uL (0.00-0.20); Basophils % (auto) 0.4 %; Eosinophils % (auto) 1.1 %; Hematocrit (blood only) 51.6 % (42.0-52.0); Hemoglobin 16.6 g/dl (14.0-18.0); Immature Granulocytes # (auto) 0.08 K/uL (0.01-0.20); Immature Granulocytes % (auto) 0.9 %; Lymphocytes # (auto) 1.07 K/uL (1.20-3.40); Lymphocytes % (auto) 11.9 %; Mean Corpuscular Hemoglobin 30.5 pg (25.0-34.0); Mean Corpuscular Hgb Conc 32.2 g/dL (32.0-36.0); Mean Corpuscular Volume 94.9 fL (80.0-100.0); Mean Platelet Volume 10.3 fL (9.4-12.4); Monocytes # (auto) 0.55 K/uL (0.11-0.59); Monocytes % (auto) 6.1 %; Neutrophils # (auto) 7.12 K/uL (1.40-6.50); Neutrophils % (auto) 79.6 %; Platelet Count 205 K/uL (130-400); RDW Coefficient of Variation 14.2 % (11.5-14.5); RDW Standard Deviation 49.1 fL (36.4-46.3); Red Blood Count 5.44 M/uL (4.70-6.10); White Blood Count 8.96 K/ul (4.8-10.8)
[2024-07-16 17:23] LABS: Albumin Globulin Ratio 1.8 (0.9-2); Albumin Level 4.5 gm/dl (3.4-5.0); BUN Creatinine Ratio 15.4 (10-20); Bilirubin,Total 0.8 mg/dl (0.2-1.0); Calcium 9.1 mg/dl (8.6-10.3); Creatinine Clr Calc Pharmacy 42.6 ml/min; Globulin 2.5 gm/dl (2.5-4.0); Potassium 4.3 mmol/L (3.5-5.1)
[2024-07-16 17:30] LABS: Troponin I High Sensitivity 10.5 pg/ml (0-20)
[2024-07-16 17:34] LABS: Partial Thromboplastin Ratio 0.9; Partial Thromboplastin Time 25 Seconds (21-31); Prothrombin Time 10.6 Seconds (9.0-12.0)
--- NOTE | 2024-07-16 17:36 | XRay Report ---
EXAM: Radiograph of the Chest 1 View INDICATION: Pain following fall. TECHNIQUE: Frontal view of the chest. COMPARISON: 04/23/[address] 03/01/2022 FINDINGS: Lungs and pleural spaces: Mild interstitial thickening noted less pronounced than seen previously. Suspect pleural and parenchymal scarring in the left base. No visit for pleural effusion. No pneumothorax. Heart: Stable enlargement. Right atrial and ventricular pacing wires now present. Aortic valve prosthetic stent present. Mediastinum: Normal contour. Bones/joints: Chronic appearing fracture of the lateral left seventh rib new since the previous examination. Other chronic left rib deformities are stable. Soft tissues: No abnormality noted. No radiopaque foreign body noted. Upper abdomen: No abnormality noted. IMPRESSION: 1. Left rib deformities appear chronic. If additional imaging is clinically warranted, CT recommended. 2. Shallow inspiration with chronic interstitial changes and probable left basilar pleural and parenchymal scarring. Recommend follow-up as warranted. ACT 112: Negative or not required by law. Electronically signed by Yael Morris 07-16-2024 5:36 PM
--- NOTE | 2024-07-16 17:39 | XRay Report ---
EXAM: Radiographs of the Right Hip 3 Views INDICATION: Posttraumatic pain. TECHNIQUE: Front view pelvis and AP and frog leg lateral views of the right hip. Images obtained at 5:18 PM. COMPARISON: No relevant prior studies available. FINDINGS: Limitations: None. Bones/joints: There is an acute nondisplaced fracture base of the right femoral neck. No dislocation. Soft tissues: No abnormality noted. No radiopaque foreign body noted. IMPRESSION: There is an acute nondisplaced fracture base of the right femoral neck. ACT 112: Negative or not required by law. Electronically signed by Yael Morris 07-16-2024 5:37 PM
--- NOTE | 2024-07-16 17:50 | CT Scan Report ---
EXAM: CT Head Without Intravenous Contrast INDICATION: Trauma. TECHNIQUE: Axial computed tomography images of the head/brain without intravenous contrast. Sagittal and/or coronal reformats are provided. Sagittal and coronal reformatted images were created and reviewed. This CT exam was performed using one or more of the following dose reduction techniques: automated exposure control, adjustment of the mA and/or kV according to patient size, and/or use of iterative reconstruction technique. COMPARISON: No relevant prior studies available. FINDINGS: Limitations: None. Brain and extra-axial spaces: There is age appropriate cortical atrophy and chronic ischemic periventricular white matter hypodensity. No acute infarct, hemorrhage or mass noted. Bones/joints: No acute changes. Soft tissues: No significant abnormality noted. Vasculature: No acute abnormality noted. Sinuses: Minimal chronic mucosal thickening right maxillary sinus. Mastoid air cells: No mastoid effusion. Orbits: No significant abnormality noted. IMPRESSION: Cerebral atrophy. No acute changes. ACT 112: Negative or not required by law. Electronically signed by Yael Morris 07-16-2024 5:50 PM
--- NOTE | 2024-07-16 17:53 | CT Scan Report ---
EXAM: CT Cervical Spine Without Intravenous Contrast INDICATION: Trauma. TECHNIQUE: Axial computed tomography images of the cervical spine without intravenous contrast. Sagittal and coronal reformatted images were created and reviewed. This CT exam was performed using one or more of the following dose reduction techniques: automated exposure control, adjustment of the mA and/or kV according to patient size, and/or use of iterative reconstruction technique. COMPARISON: No relevant prior studies available. FINDINGS: Limitations: None. Vertebrae: The spine is tilted to the right and straightened which may be related to spasm. No fracture or subluxation. There is mild spondylosis and facet arthrosis at all levels. Small foci of calcified plaque noted in the intracranial vertebral arteries. Discs/spinal canal/neural foramina: Diffuse mild disc space narrowing noted. Soft tissues: No significant abnormality noted. Vasculature: There is moderate atherosclerosis of the cervical carotid arteries. Lung apices: No significant abnormality noted. IMPRESSION: 1. No fracture. Mild degenerative changes. 2. Significant atherosclerotic calcification of the cervical internal carotid arteries. ACT 112: Negative or not required by law. Electronically signed by Yael Morris 07-16-2024 5:52 PM
--- NOTE | 2024-07-16 17:57 | CT Scan Report ---
EXAM: CT Abdomen and Pelvis Without Intravenous Contrast INDICATION: Trauma. TECHNIQUE: Axial computed tomography images of the abdomen and pelvis without intravenous contrast. Sagittal and coronal reformatted images were created and reviewed. This CT exam was performed using one or more of the following dose reduction techniques: automated exposure control, adjustment of the mA and/or kV according to patient size, and/or use of iterative reconstruction technique. COMPARISON: No relevant prior studies available. FINDINGS: Limitations: Assessment of solid organ integrity limited in the absence of IV contrast. Lung bases: No abnormality noted. Pleural space: No visualized pleural effusion or pneumothorax. Heart: Cardiomegaly noted. Cardiac pacing device noted. Metallic artifact limits assessment of lead integrity. Mediastinum: No abnormality noted. ABDOMEN: Liver: Lack of intravenous contrast limits detection of some masses. No abnormality noted. Gallbladder and bile ducts: Cholecystectomy. No ductal dilation or stone noted. Pancreas: No pancreatic mass, calcification, inflammation or ductal dilation noted. Spleen: No significant abnormality noted. Adrenals: No significant abnormality noted. Kidneys and ureters: There is mild left perinephric stranding typically scarring. No hydronephrosis or urinary stone. No urinary gas. Stomach and bowel: Colonic diverticulosis without diverticulitis. No intestinal thickening or obstruction. PELVIS: Appendix: No findings to suggest acute appendicitis. Bladder: Mildly distended urinary bladder. No gas or stone. Reproductive: No abnormalities noted. ABDOMEN and PELVIS: Intraperitoneal space: No free air. No significant fluid collection. Bones/joints: There is an acute nondisplaced fracture of the right femoral neck. Degenerative changes noted throughout the spine. Chronic appearing left rib deformities. Soft tissues: No significant abnormality noted. Vasculature: Atherosclerotic calcification of the aorta and branches. No aneurysm. Lymph nodes: No pathologically enlarged lymph nodes. IMPRESSION: 1. There is an acute nondisplaced fracture of the right femoral neck. 2. Limited assessment for solid organ injury in the absence of contrast. No traumatic change of the solid organs noted. ACT 112: Negative or not required by law. Electronically signed by Yael Morris 07-16-2024 5:56 PM
--- NOTE | 2024-07-16 18:00 | CT Scan Report ---
EXAM: CT Chest Without Intravenous Contrast INDICATION: Fall. TECHNIQUE: Axial computed tomography images of the chest without intravenous contrast. Sagittal and coronal reformatted images were created and reviewed. This CT exam was performed using one or more of the following dose reduction techniques: automated exposure control, adjustment of the mA and/or kV according to patient size, and/or use of iterative reconstruction technique. COMPARISON: 03/01/2022 FINDINGS: Limitations: Aortic integrity is not assessed in the absence of IV contrast. Lungs and pleural spaces: Mild scarring or atelectasis present in the bases. No consolidation. No pneumothorax. Mild left basilar pleural thickening. Heart: Cardiomegaly noted. Cardiac pacing device noted. Metallic artifact limits assessment of lead integrity. Aortic valve prosthetic stent present. Thyroid: No abnormality noted. Bones/joints: Stable old fractures of the left 5th through 8th ribs. No acute rib fracture noted. Started him and visualize shoulders intact. Degenerative. Soft tissues: No significant abnormality noted. Vasculature: Normal variant aberrant right subclavian artery. Atherosclerosis. No aneurysm. Lymph nodes: No enlarged lymph nodes. IMPRESSION: 1. Limited assessment in the absence of IV contrast. No traumatic change identified. 2. Stable old fractures of the left 5th through 8th ribs. No acute rib fracture noted. Was noted throughout the spine without fracture. ACT 112: Negative or not required by law. Electronically signed by Yael Morris 07-16-2024 6:00 PM
--- NOTE | 2024-07-16 18:28 | History & Physical Report ---
Date of Service July 16, 2024 Assessment & Plan (1) Closed fracture of right hip: Plan: Right hip fracture Due to a mechanical fall without evidence of cardiogenic or neurogenic syncope Orthopedics consulted -CTchest: Stable old fractures, no acute rib fractures - CTA/P: Acute nondisplaced fracture of the right femoral neck. No traumatic change of solid organs noted although limited by noncontrasted study -Hip/pelvis x-ray: Right femoral neck fracture -CTC-spine: No acute fracture/subluxation -CThead: No acute findings -RCRI: Patient does have history of treatment with insulin. He does have a history of CHF however this was in the setting of aortic stenosis which has since been repaired. Overall 12 points, 6-10% risk of perioperative cardiac event. He does not have any acute or recent ischemia and no further optimize above risk factors. Creatinine is at baseline, BSG is adequately controlled on admission. (2) Pacemaker: Plan: CAD, TAVR, pacemaker placement due to history of second-degree AV block 2021 Last echo 05/2023 with LV 65 to 69%, appropriately functioning AVR EKG: Normal sinus rhythm, no territorial ischemia. Troponin normal. No evidence of pulmonary congestion/acute CHF on admission Continue rosuvastatin, isosorbide, metoprolol Olmesartan held preoperatively. Resume postop. Cath 2021 with large dominant RCA and without significant coronary disease. No stents required at that time. Patient has not had any stents. May hold aspirin and resume postoperatively No evidence of CHF on admitting CT scan or clinically (3) Restrictive lung disease: Plan: COPD, restrictive lung disease due to morbid obesity, history of left upper lobectomy Continue Anoro Nebs/butyryl as needed. No evidence of COPD exacerbation on admission Continue CPAP at bedtime (4) VADIM (obstructive sleep apnea): (5) Type 2 diabetes mellitus with peripheral neuropathy: Plan: Type II DM Jardiance/dulaglutide held on admission Patient is on 75/25 insulin 25 units twice daily. Will transition to basal bolus while inpatient. Lantus 15BID, CF 25, CR 10 Will BSG [id number] Plan Stable chronic issues: History of lung adenocarcinoma s/p left upper lobectomy 2017. Stable on repeat CTs DEYSI: Iatrogenic without history of bleeding. Hemoglobin normal on admission 07/14 Depression/anxiety: Continue citalopram CKD Baseline creatinine approximately 1.6 Creatinine 1.56, at baseline on admission DVT prophylaxis: SCDs pending surgical eval. May use heparin postoperatively Diet: N.p.o. at midnight. Heart healthy/DM 2 CODE STATUS: DNR/DNI discussed with patient at bedside Disposition: post trauma will follow PCU for 24 hours History of Present Illness Primary Care Provider: Mili Bullock MD Juancho is an 83-year-old male past medical history of type II DM, CKD 3, TAVR, VADIM, pulmonary hypertension, CAD, COPD, pacemaker placement 2021, cholecystectomy, and left upper lobectomy 2/2 primary adenocarcinoma of the lung who presents to the ER after a fall when he was using a charles to move cinderblocks, that charles slipped out causing him to fall striking his right hip and rolling onto an embankment. Did not lose consciousness or strike his head. Was not able to bear weight on his right hip due to pain after the fall. Patient seen at the bedside with his present. He reports that he was moving blocks with a charles when he slipped and fell and got wedged between blocks in the house. He did not strike his head or lose consciousness. No lightheadedness or dizziness that led to his fall. He has not any chest pain chest pressure in the previous weeks or months either at rest or with exertion. He does have history of cath in the setting of a aortic valve repair for stenosis, he does not have obstructive disease. He reports that he did have heart failure due to his aortic valve but since this was fixed he has had no recurrent issues with fluid or CHF exacerbations. He formerly used chew does not currently use any tobacco products or alcohol. He has been well recently and has denies fever, chills, sweats, lightheadedness, dizziness, nausea, vomiting, diarrhea, constipation. He does take insulin for diabetes but has not taken any insulin today. He does have neuropathy as a result of his diabetes and a slight resting tremor which has not changed. Denies new focal neurologic deficits including sensory change and weakness although notes that he cannot stand on his right leg due to pain since his fall. Allergic to Bactrim Former chew use. No alcohol use Medications reviewed CODE STATUS: DNR/DNI, reviewed with patient and his at the bedside Allergies Allergy/AdvReac Type Severity Reaction Status Date / Time sulfamethoxazole Allergy Hives Verified 07/14/24 09:46 [From Bactrim] trimethoprim [From Bactrim] Allergy Hives Verified 07/14/24 09:46 Home Medications Medication Instructions Recorded Confirmed Type multivitamin 1 tab PO QAM 04/25/18 07/16/24 History nebulizers (Aeroneb Go Nebulizer) #1 ea 05/23/20 07/14/24 Rx aspirin 81 mg chewable tablet 81 mg PO QAM 06/01/22 07/16/24 History blood sugar diagnostic (OneTouch #120 ea 06/05/22 07/14/24 Rx Ultra Test strips) ipratropium 0.5 mg-albuterol 3 mg 3 ml inhalation Q8H PRN shortness 09/11/22 07/16/24 Rx (2.5 mg base)/3 mL nebulization of breath or wheezing #560 mL soln pen needle, diabetic 33 gauge x #100 ea 02/07/24 07/14/24 Rx 3/16" (Comfort EZ Pen [place]) pantoprazole 40 mg tablet,delayed 40 mg PO BID #180 tabs 02/29/24 07/16/24 Rx release ferrous sulfate 324 mg (65 mg 324 mg PO Q2D 04/18/24 07/16/24 History iron) tablet,delayed release umeclidinium 62.5 mcg-vilanterol 1 inh inhalation QAM #60 ea 04/25/24 07/16/24 Rx 25 mcg/actuation powdr for inhalation (Anoro Ellipta) escitalopram oxalate 10 mg tablet 10 mg PO QAM #90 tabs 05/25/24 07/16/24 Rx dulaglutide 1.5 mg/0.5 mL 1.5 mg (0.5 mL) subcut Q7D #6 mL 06/02/24 07/16/24 Rx subcutaneous pen injector empagliflozin 10 mg tablet 10 mg PO QAM #90 tabs 06/02/24 07/16/24 Rx gabapentin 400 mg capsule 400 mg PO BID #180 caps 06/02/24 07/16/24 Rx insulin lispro protamine-lispro 25 unit (0.25 mL) subcut BID #60 mL 06/02/24 07/16/24 Rx 100 unit/mL (75-25) subcutaneous pen (Humalog Mix 75-25 KwikPen) isosorbide mononitrate 60 mg 60 mg PO QAM #90 tabs 06/02/24 07/16/24 Rx tablet,extended release 24 hr metoprolol succinate 100 mg 100 mg PO QAM #90 tabs 06/02/24 07/16/24 Rx tablet,extended release 24 hr olmesartan 5 mg tablet 5 mg PO QAM #90 tabs 06/02/24 07/16/24 Rx rosuvastatin 40 mg tablet 40 mg PO QAM #90 tabs 06/02/24 07/16/24 Rx Past Med/Surg History Problem List (Updated 07/16/24 @ 18:10 by Nemesio Schaefer M.D.) Fall (Acute) Closed fracture of right hip (Acute) Depression History of adenocarcinoma of lung Gait instability History of lung cancer Type 2 diabetes mellitus with peripheral neuropathy Type 2 diabetes mellitus with obesity CKD (chronic kidney disease) stage 3, GFR 30-59 ml/min Restrictive lung disease Complete heart block Presence of permanent cardiac pacemaker (Chronic) Medtronic [id number] Generator. Implant 05/07/22 [facility] [place] Status post transcatheter aortic valve replacement (TAVR) using bioprosthesis (Chronic) Medtronic 34 mm Evolut Pro Plus AV. Implant 05/05/22 [facility] [place]. Allergic rhinitis with postnasal drip Pulmonary nodule Pulmonary hypertension Mixed restrictive and obstructive lung disease Obstructive sleep apnea syndrome Anemia (Chronic) Obstructive lung disease (Chronic) Dyslipidemia (Chronic) Gastro-esophageal reflux Hypertension (Chronic) Squamous cell carcinoma of lip History of lobectomy of lung left upper lobe 03/30/2018 [facility] CAD (coronary artery disease) NON-OBSTRUCTIVE Medical History VADIM (obstructive sleep apnea) COPD (chronic obstructive pulmonary disease) Restrictive lung disease Gait instability Diabetic neuropathy Pacemaker (04/2022) Aortic stenosis CHF (congestive heart failure) Non-ST elevation (NSTEMI) myocardial infarction Heart failure with preserved ejection fraction Hemoptysis Leg pain, bilateral Leukocytosis Malaise and fatigue Severe aortic stenosis Dyspnea on exertion Lung mass Mass of cecum 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 Thoracoscopic surgical procedure converted to open procedure Anemia GERD (gastroesophageal reflux disease) Hiatal hernia Hearing deficit Diabetes mellitus, type 2 Hypertension Hyperlipidemia Surgical History Hx of left cataract extraction (04/24/24) Hx of local excision of skin lesion S/P cardiac pacemaker procedure History of heart valve replacement S/P lobectomy of lung History of cardiac cath History of colonoscopy History of cholecystectomy Family History Father Cardiac disorder Myocardial infarction Other No family history of bleeding disorder Denies family history of Ovarian cancer Prostate cancer Breast cancer Colorectal cancer Social History Smoking Status: Never smoker Tobacco Type: Smokeless Tobacco (Dip or Chew) Second Hand Exposure: Yes (growing up); Do You Dip or Chew Tobacco: No (quit); Hx Alcohol Use: Yes Hx Substance Use: No Preferred Language: Polish Communication Ability: Effective Visual Impairment: Limited Hearing Ability: Use of Hearing Aid [employer] Required: No Beliefs That Will Affect Care: None marital status: Current Living Situation: Spouse current occupational status: retired current occupation: Retired How many Children do You have: 1 Feels Safe at Home: Yes Dental Care, Regularly: Yes Physical Activity Frequency: Does not Exercise Seatbelt Use: always Sunscreen Use: No Assistive Devices: Cane Physical Exam Physical Exam: General: A&Ox3. NAD. Cooperative. HEENT: Atraumatic, normocephalic. Vision and hearing grossly intact Pulm: CTAB A&P. -wheezes, -rales, -rhonchi. Symmetrical chest rise. No increased work of breathing. No respiratory distress. Cardiac: RRR, +sm. Radial pulses intact and symmetrical. Abdominal: Nontender, nondistended, soft. BS present. Ext: Warm and dry. Right leg is internally rotated and slightly shortened. Right hip is with tenderness on palpation laterally and anteriorly. PT pulses intact bilaterally. Ankle dorsiflexion/plantarflexion are intact bilaterally. Sensation in feet is limited by neuropathy bilaterally but intact sensation to soft touch at the shins bilaterally without deficit or asymmetry. Results & Data Results & Data Vital Signs (Past 12 Hours) Vital Signs Temp Pulse Resp BP Pulse Ox O2 Del Method 07/16/24 17:03 74 16 185/86 H 91 Room Air 07/16/24 17:02 75 91 Room Air 07/16/24 16:38 82 12/22/24 16:37 36.7 C 82 17 213/117 H 92 Room Air PG Care Time/CCT Total # of Minutes Spent Total Time Spent with Patient: Total time spent is greater than 50% in coordination of care (as documented) at patient's floor/unit and/or counseling patient: Coding Level of Care Code 49163 INT INP/OBS CARE 3/75MIN Diagnoses Closed fracture of right hip S72.001A Encounter type: initial encounter Pacemaker Z95.0 Restrictive lung disease J98.4 VADIM (obstructive sleep apnea) G47.33 Type 2 diabetes mellitus with peripheral neuropathy E11.42 (1) Closed fracture of right hip Encounter type: initial encounter Qualified Code(s): S72.001A - Fracture of unspecified part of neck of right femur, initial encounter for closed fracture
[2024-07-16] MEDS: fentaNYL citrate PF 100 MCG/2 ML VIAL IV ONE (18:29)
[2024-07-16] MEDS: ACETAMINOPHEN 1,000 MG/100 ML VIAL IV STA (18:30)
[2024-07-16] MEDS ORDERED: NALOXONE HCL 0.4 MG/1 ML VIAL/CARP IV PRN (18:50)
[2024-07-16] MEDS ORDERED: bisacodyL 10 MG SUPP PR PRN (18:50)
[2024-07-16] MEDS ORDERED: HYDROmorphone INJ 1 MG/ML SYRINGE IV PRN (18:51)
[2024-07-16 19:15] LABS: Appearance Urine Clear (Clear); Bacteria Urine Automated None Seen (None Seen); Bilirubin Urine Negative (Negative); Blood Urine Trace (Negative); Cast Urine Automated 0-2 /lpf (0-2); Color Urine Yellow; Epithelial Cell Urine Auto 0-2 /hpf (0-2); Glucose Urine UA 3+ (Negative); Ketones Urine Negative (Negative); Leukocyte Esterase Urine Negative (Negative); Nitrite Urine Negative (Negative); Protein Urine 1+ (Negative); RBC Urine Automated 0-2 /hpf (0-2); Specific Gravity Urine 1.018 (1.000-1.030); Urobilinogen Urine Negative (Negative); WBC Urine Automated 0-5 /hpf (0-5)
--- NOTE | 2024-07-16 20:32 | XRay Report ---
Exam(s): XR RIGHT FEMUR, 2 views EXAM: XR Right Femur, 2 Views CLINICAL HISTORY: Preop planning. TECHNIQUE: Frontal and lateral views of the right femur. COMPARISON: No relevant prior studies available. FINDINGS: Bones/joints: Mildly impacted subcapital femoral neck fracture. No dislocation. Soft tissues: Unremarkable. IMPRESSION: Mildly impacted subcapital femoral neck fracture. Electronically signed by: Shelby Ivory MD 07/16/24 20:32 PM
[2024-07-16] MEDS ORDERED: GLUCOSE 40% GEL 15 GM TUBE PO PRN (22:43)
[2024-07-16] MEDS ORDERED: GLUCAGON FOR INJ 1 MG VIAL SQ PRN (22:43)
[2024-07-16] MEDS ORDERED: ALBUT/IPRATROP 3MG/0.5MG NEB 3 ML VIAL INH PRN (22:43)
[2024-07-16] MEDS ORDERED: DEXTROSE 50% 50 ML SYRINGE IV PRN (22:43)
[2024-07-16] MEDS ORDERED: PHARMACY GLYCEMIC MGMT CONSULT PRN (22:43)
[2024-07-16] MEDS ORDERED: CARBOHYDRATES FOR HYPOGLYCEMIA PO PRN (22:43)
[2024-07-16] MEDS ORDERED: GLUCOSE 10 TAB/TUBE PO PRN (22:43)
[2024-07-16] MEDS ORDERED: ACETAMINOPHEN 325 MG TAB PO PRN (22:43)
[2024-07-16] MEDS: GABAPENTIN 400 MG CAP PO SCH (23:38)
[2024-07-16] MEDS: PANTOprazole 40 MG TAB PO SCH (23:38)
[2024-07-17] MEDS: INSULIN ASPART PER UNIT CHARGE SC SCH ×2 (00:09→12:55)
[2024-07-17] MEDS: SODIUM CHLORIDE 0.9% 1,000 ML IV SCH (00:30)
[2024-07-17] MEDS: ACETAMINOPHEN 1,000 MG/100 ML VIAL IV PRN (04:23)
[2024-07-17] MEDS: ESCITALOPRAM OXALATE 10 MG TAB PO SCH (07:57)
[2024-07-17] MEDS: ISOSORBIDE MONO EXTENDED REL 60 MG TABCR PO SCH (07:57)
[2024-07-17 07:58] LABS: Basophils # (auto) 0.03 K/uL (0.00-0.20); Basophils % (auto) 0.3 %; Eosinophils # (auto) 0.31 K/uL (0.00-0.50); Eosinophils % (auto) 3.4 %; Hemoglobin 14.7 g/dl (14.0-18.0); Immature Granulocytes # (auto) 0.03 K/uL (0.01-0.20); Immature Granulocytes % (auto) 0.3 %; Lymphocytes # (auto) 1.07 K/uL (1.20-3.40); Lymphocytes % (auto) 11.8 %; Mean Corpuscular Volume 93.9 fL (80.0-100.0); Mean Platelet Volume 10.2 fL (9.4-12.4); Monocytes # (auto) 0.82 K/uL (0.11-0.59); Neutrophils # (auto) 6.83 K/uL (1.40-6.50); Neutrophils % (auto) 75.2 %; Platelet Count 172 K/uL (130-400); RDW Standard Deviation 48.5 fL (36.4-46.3); White Blood Count 9.09 K/ul (4.8-10.8)
[2024-07-17] MEDS: METOPROLOL SUCC 50MG EXT REL TAB PO SCH (07:58)
[2024-07-17] MEDS: FERROUS SULFATE 325 MG TAB PO SCH (08:00)
[2024-07-17] MEDS: MULTIVITAMIN TAB PO SCH (08:00)
[2024-07-17] MEDS: ROSUVASTATIN CALCIUM 20 MG TAB PO SCH (08:00)
[2024-07-17] MEDS: UMECLIDINIUM/VILANTEROL 62.5/25MCG 7 PUFFS/INHALER INH SCH (08:01)
[2024-07-17] MEDS: HYDROmorphone INJ 0.5 MG/0.5 ML SYR IV PRN (08:03)
[2024-07-17 08:10] LABS: BUN Creatinine Ratio 15.7 (10-20); Calcium 8.8 mg/dl (8.6-10.3); Creatinine Clr Calc Pharmacy 46.6 ml/min; Potassium 4.4 mmol/L (3.5-5.1)
[2024-07-17] MEDS ORDERED: DEXTROSE 50% 50 ML SYRINGE IV PRN (08:39)
[2024-07-17] MEDS ORDERED: CARBOHYDRATES FOR HYPOGLYCEMIA PO PRN (08:39)
[2024-07-17] MEDS ORDERED: GLUCOSE 40% GEL 15 GM TUBE PO PRN (08:39)
[2024-07-17] MEDS ORDERED: GLUCAGON FOR INJ 1 MG VIAL SQ PRN (08:39)
[2024-07-17] MEDS ORDERED: GLUCOSE 10 TAB/TUBE PO PRN (08:39)
[2024-07-17] MEDS ORDERED: hydrALAZINE HCL 20 MG/ML VIAL IV PRN (08:41)
[2024-07-17] MEDS ORDERED: ALBUT/IPRATROP 3MG/0.5MG NEB 3 ML VIAL INH PRN (08:41)
[2024-07-17] MEDS ORDERED: LIDOCAINE 2% 2 ML VIAL/AMP(20MG/ML) INFIL ONE (09:31)
[2024-07-17] MEDS ORDERED: PROPOFOL IV EMULSION 10 MG/ML 20 ML VIAL IV ONE (09:31)
[2024-07-17] MEDS ORDERED: ROCURONIUM BROMIDE 10 MG/ML 5 ML VIAL IV ONE ×2 (09:31→11:46)
[2024-07-17] MEDS ORDERED: fentaNYL citrate PF 100 MCG/2 ML VIAL ONE ×2 (09:32→11:54)
--- NOTE | 2024-07-17 09:33 | Orthopedic Consultation ---
Date of Consultation July 17, 2024 Assessment & Plan (1) Closed fracture of right hip: Scheduled for OR today, right total hip arthoplasty with Dr Hess -Consent obtained, spoke with , Sara as well. Discussed post operative course. She would like him to go to a rehab after surgery. -NPO -Hold anticoagulants -Intra-op infection prophylaxis: 2grams Cefazolin -1 gram TXA pre op and intra-op ordered -IV LR fluids -Void status controller to OR -Clip/prep -Will continue to follow after surgery Spent 45 minutes on patient with chart review, h&P, consent, speaking with family, orders and documentation Supervising Physician Co-Signing Physician Notes I saw and examined the patient, reviewed his x-rays and CT scan, formulated the plan, and performed the substantive portion of the visit. Patient has a displaced base femoral neck fracture. The fracture extends towards the lesser trochanter. Attempted surgical fixation of this fracture is likely to fail. Therefore I think arthroplasty is his best bet. I am concerned about the fracture line extending distally. Therefore I have arranged to have a long stemmed revision implant available to achieve diaphyseal fixation. Complexly this case is high given the aforementioned difficulties with fracture. Furthermore, he is at high risk of complications given his history of type 2 diabetes, morbid obesity, chronic kidney disease, history of aortic valve replacement, history of lung adenocarcinoma, pulmonary hypertension, and neuropathy placing him at high risk of falls. Patient understands all these risks of surgery. Despite all these risks the patient is unlikely to be able to walk without surgery, therefore it is felt that the benefits outweigh the risks. We went through the informed consent process and he signed the form. Surgical site was marked. Proceed to the operating room today for total hip replacement. History of Present Illness Reason for Consultation: right hip fracture Attending Physician: Gorge John MD History of Present Illness Patient is here with right hip fracture after sustaining a fall. He says that he is doing okay. He does have pain in his right hip. Past medical history of type II DM, CKD 3, TAVR, VADIM, pulmonary hypertension, CAD, COPD, pacemaker placement 2021, cholecystectomy, and left upper lobectomy 2/2 primary adenocarcinoma of the lung. He presented to the ER after a fall when he was using a charles to move cinderblocks, that charles slipped out causing him to fall striking his right hip and rolling onto an embankment. Did not lose consciousness or strike his head. Was not able to bear weight on his right hip due to pain after the fall. Allergies Allergy/AdvReac Type Severity Reaction Status Date / Time sulfamethoxazole Allergy Hives Verified 07/14/24 09:46 [From Bactrim] trimethoprim [From Bactrim] Allergy Hives Verified 07/14/24 09:46 Home Medications Medication Instructions Recorded Confirmed Type multivitamin 1 tab PO QAM 04/25/18 07/16/24 History nebulizers (Aeroneb Go Nebulizer) #1 ea 05/23/20 07/14/24 Rx aspirin 81 mg chewable tablet 81 mg PO QAM 06/01/22 07/16/24 History blood sugar diagnostic (OneTouch #120 ea 06/05/22 07/14/24 Rx Ultra Test strips) ipratropium 0.5 mg-albuterol 3 mg 3 ml inhalation Q8H PRN shortness 09/11/22 07/16/24 Rx (2.5 mg base)/3 mL nebulization of breath or wheezing #560 mL soln pen needle, diabetic 33 gauge x #100 ea 02/07/24 07/14/24 Rx 3/16" (Comfort EZ Pen [place]) pantoprazole 40 mg tablet,delayed 40 mg PO BID #180 tabs 02/29/24 07/16/24 Rx release ferrous sulfate 324 mg (65 mg 324 mg PO Q2D 04/18/24 07/16/24 History iron) tablet,delayed release umeclidinium 62.5 mcg-vilanterol 1 inh inhalation QAM #60 ea 04/25/24 07/16/24 Rx 25 mcg/actuation powdr for inhalation (Anoro Ellipta) escitalopram oxalate 10 mg tablet 10 mg PO QAM #90 tabs 05/25/24 07/16/24 Rx dulaglutide 1.5 mg/0.5 mL 1.5 mg (0.5 mL) subcut Q7D #6 mL 06/02/24 07/16/24 Rx subcutaneous pen injector empagliflozin 10 mg tablet 10 mg PO QAM #90 tabs 06/02/24 07/16/24 Rx gabapentin 400 mg capsule 400 mg PO BID #180 caps 06/02/24 07/16/24 Rx insulin lispro protamine-lispro 25 unit (0.25 mL) subcut BID #60 mL 06/02/24 07/16/24 Rx 100 unit/mL (75-25) subcutaneous pen (Humalog Mix 75-25 KwikPen) isosorbide mononitrate 60 mg 60 mg PO QAM #90 tabs 06/02/24 07/16/24 Rx tablet,extended release 24 hr metoprolol succinate 100 mg 100 mg PO QAM #90 tabs 06/02/24 07/16/24 Rx tablet,extended release 24 hr olmesartan 5 mg tablet 5 mg PO QAM #90 tabs 06/02/24 07/16/24 Rx rosuvastatin 40 mg tablet 40 mg PO QAM #90 tabs 06/02/24 07/16/24 Rx Patient History Medical History VADIM (obstructive sleep apnea) non-compliant w/device COPD (chronic obstructive pulmonary disease) Restrictive lung disease daily inh, prn neb>rare use Gait instability uses cane Diabetic neuropathy Pacemaker (04/2022) 04/2022, [facility], day after TAVR, [employer]; f/u [facility] Aortic stenosis hx, had TAVR 04/2022 CHF (congestive heart failure) hx-since having TAVR "no further issues" Non-ST elevation (NSTEMI) myocardial infarction pt and unsure about this? 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 Robotic L VATS converted to open procedure. Glidescope assisted PERFECTO insertion. During surgery there was significant bleeding from the pulmonary artery which forced a change to an open thoracotomy and was difficult to control. Fluids were given followed by blood and between the blood loss and manipulation in the chest there were some brief times when the eros was showing very little pulse. His CO2 tracing dropped but never went to nothing . Along with the fluids he did receive 0.5mg epi and 2 units of vasopressin in addition to occasional small doses of ephedrine and phenylephrine. Blood loss was controlled and his vitals stabilized for the rest of the case. At the end of the procedure, we changed to a single lumen ETT and Dr Mari did a bronchoscopy which showed a little blood in the bronchi but basically clear. He is making urine, his vitals are stable, we are leaving him on the ventilator for the mean time to allow him to wake and make sure he is not acidotic. Labs and chest film are being done now - report to ICU MD. Anemia hx GERD (gastroesophageal reflux disease) Hiatal hernia Hearing deficit wears hearing aids Diabetes mellitus, type 2 IDDM, +B/L FEET NEUROPATHY Hypertension Hyperlipidemia Surgical History Hx of left cataract extraction (04/24/24) Hx of local excision of skin lesion SCC on lip S/P cardiac pacemaker procedure 04/2022, [facility] History of heart valve replacement TAVR 05/05/2022, [facility] S/P lobectomy of lung duplicate History of cardiac cath 2015- NO STENTS [facility] 2021 no stents [facility] History of colonoscopy History of cholecystectomy 11/22/2014. DL x2. Glidescope #3 by [facility] and 7.5 ETT inserted. Grade 3 view. 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 Beliefs That Will Affect Care: None marital status: Current Living Situation: Spouse current occupational status: retired current occupation: Retired How many Children do You have: 1 Other Information That Helps Us Care for You: No Feels Safe at Home: Yes Safety Concerns: Feels Safe At This Time Dental Care, Regularly: Yes Physical Activity Frequency: Does not Exercise Seatbelt Use: always Sunscreen Use: No Assistive Devices: Glasses and Hearing Aid - Bilateral Physical Exam Physical Exam: General: Pt laying in hospital bed AA&O, in NAD, calm and cooperative during exam Lower Extremity: Right leg internally rotated and shortened. TTP right hip. Skin warm and pink. DF/PF intact. Pt has neuropathy BL but sensation intact distally at baseline. Results & Data Vital Signs (Past 12 Hours) Vital Signs Temp Pulse Pulse Resp BP BP Pulse Ox 07/17/24 07:52 36.7 C 60 19 189/51 H 98 07/17/24 02:49 36.7 C 61 18 177/68 H 92 07/16/24 22:35 161/64 H 07/16/24 22:12 73 07/16/24 22:06 72 20 168/78 H 98 07/16/24 22:05 36.5 C 75 20 176/77 H 98 07/16/24 22:05 36.5 C 75 20 176/77 H 98 O2 Del Method O2 Flow Rate 07/17/24 07:52 Nasal Cannula 1 07/17/24 02:49 Nasal Cannula 3 07/16/24 22:35 07/16/24 22:12 07/16/24 22:06 Nasal Cannula 3 07/16/24 22:05 Nasal Cannula 3 07/16/24 22:05 Nasal Cannula 3 Diagnostic Findings EXAM: Radiographs of the Right Hip 3 Views INDICATION: Posttraumatic pain. TECHNIQUE: Front view pelvis and AP and frog leg lateral views of the right hip. Images obtained at 5:18 PM. COMPARISON: No relevant prior studies available. FINDINGS: Limitations: None. Bones/joints: There is an acute nondisplaced fracture base of the right femoral neck. No dislocation. Soft tissues: No abnormality noted. No radiopaque foreign body noted. IMPRESSION: There is an acute nondisplaced fracture base of the right femoral neck. (1) Closed fracture of right hip Encounter type: initial encounter Qualified Code(s): S72.001A - Fracture of unspecified part of neck of right femur, initial encounter for closed fracture
--- NOTE | 2024-07-17 09:43 | Anesthesiology Consultation ---
Date of Service July 17, 2024 Assessment & Plan Chart Review Chart Review: Acceptable Risk for Surgery and Patient NOT seen in Pre Admission Testing History Surgery Operation Date: 07/17/24 07:50 Proposed Procedures p Right Total Hip Arthroplasty - Robby Hess MD Height/Weight Height: 5 ft 7 in Weight: 100 kg Allergies Allergy/AdvReac Type Severity Reaction Status Date / Time sulfamethoxazole Allergy Hives Verified 07/14/24 09:46 [From Bactrim] trimethoprim [From Bactrim] Allergy Hives Verified 07/14/24 09:46 Medications Home Medications Medication Instructions Recorded Confirmed Last Taken multivitamin 1 tab PO QAM 04/25/18 07/16/24 05/08/24 05:30 nebulizers (Aeroneb Go Nebulizer) #1 ea 05/23/20 07/14/24 Unknown aspirin 81 mg chewable tablet 81 mg PO QAM 06/01/22 07/16/24 05/08/24 05:30 blood sugar diagnostic (OneTouch #120 ea 06/05/22 07/14/24 Unknown Ultra Test strips) ipratropium 0.5 mg-albuterol 3 mg 3 ml inhalation Q8H PRN shortness 09/11/22 07/16/24 Unknown (2.5 mg base)/3 mL nebulization of breath or wheezing #560 mL soln pen needle, diabetic 33 gauge x #100 ea 02/07/24 07/14/24 Unknown 3/16" (Comfort EZ Pen [place]) pantoprazole 40 mg tablet,delayed 40 mg PO BID #180 tabs 02/29/24 07/16/24 05/08/24 05:30 release ferrous sulfate 324 mg (65 mg 324 mg PO Q2D 04/18/24 07/16/24 Unknown iron) tablet,delayed release umeclidinium 62.5 mcg-vilanterol 1 inh inhalation QAM #60 ea 04/25/24 07/16/24 Unknown 25 mcg/actuation powdr for inhalation (Anoro Ellipta) escitalopram oxalate 10 mg tablet 10 mg PO QAM #90 tabs 05/25/24 07/16/24 Unknown dulaglutide 1.5 mg/0.5 mL 1.5 mg (0.5 mL) subcut Q7D #6 mL 06/02/24 07/16/24 Unknown subcutaneous pen injector empagliflozin 10 mg tablet 10 mg PO QAM #90 tabs 06/02/24 07/16/24 Unknown gabapentin 400 mg capsule 400 mg PO BID #180 caps 06/02/24 07/16/24 Unknown insulin lispro protamine-lispro 25 unit (0.25 mL) subcut BID #60 mL 06/02/24 07/16/24 Unknown 100 unit/mL (75-25) subcutaneous pen (Humalog Mix 75-25 KwikPen) isosorbide mononitrate 60 mg 60 mg PO QAM #90 tabs 06/02/24 07/16/24 Unknown tablet,extended release 24 hr metoprolol succinate 100 mg 100 mg PO QAM #90 tabs 06/02/24 07/16/24 Unknown tablet,extended release 24 hr olmesartan 5 mg tablet 5 mg PO QAM #90 tabs 06/02/24 07/16/24 Unknown rosuvastatin 40 mg tablet 40 mg PO QAM #90 tabs 06/02/24 07/16/24 Unknown Active Medications Generic Name Dose Route Start Last Admin Trade Name Freq PRN Reason Stop Dose Admin Escitalopram Oxalate 10 mg 07/17/24 09:00 07/17/24 07:57 Escitalopram Oxalate 10 Mg Tab PO 08/16/24 08:59 10 mg QAM SHANTANU Administration Ferrous Sulfate 325 mg 07/17/24 09:00 07/17/24 08:00 Ferrous Sulfate 325 Mg Tab PO 08/16/24 08:59 325 mg Q48H SHANTANU Administration Gabapentin 400 mg 07/16/24 22:43 07/17/24 07:58 Gabapentin 400 Mg Cap PO 08/15/24 22:42 400 mg BID SHANTANU Administration Hydromorphone HCl 0.5 mg 07/16/24 18:51 07/17/24 08:03 Hydromorphone Inj 0.5 Mg/0.5 Ml Syr IV 07/30/24 18:50 0.5 mg Q4H PRN Administration Moderate Pain (4,5,6) on NRS Acetaminophen 1,000 mg in 100 mls @ 400 mls/hr 07/17/24 02:00 07/17/24 04:38 Ofirmev IV 07/20/24 01:59 Infused Q8H PRN Infusion Fever/Mild Pain (Pain 1,2,3) Sodium Chloride 1,000 mls @ 80 mls/hr 07/17/24 00:00 07/17/24 00:30 Nss IV 07/18/24 00:00 80 mls/hr .[id number] SHANTANU Administration Isosorbide Mononitrate 60 mg 07/17/24 09:00 07/17/24 07:57 Isosorbide [place] Extended Rel 60 Mg Tabcr PO 08/16/24 08:59 60 mg QAM SHANTANU Administration Metoprolol Succinate 100 mg 07/17/24 09:00 07/17/24 07:58 Metoprolol Succ 50mg Ext Rel Tab PO 08/16/24 08:59 100 mg QAM SHANTANU Administration Multivitamins 1 tab 07/17/24 09:00 07/17/24 08:00 Multivitamin Tab PO 08/16/24 08:59 1 tab QAM SHANTANU Administration Pantoprazole Sodium 40 mg 07/16/24 22:43 07/17/24 08:01 Pantoprazole 40 Mg Tab PO 08/15/24 22:42 40 mg BID SHANTANU Administration Rosuvastatin Calcium 40 mg 07/17/24 09:00 07/17/24 08:00 Rosuvastatin Calcium 20 Mg Tab PO 08/16/24 08:59 40 mg QAM SHANTANU Administration Umeclidinium/Vilanterol 1 puffs 07/17/24 09:00 07/17/24 08:01 Umeclidinium/Vilanterol 62.5/25mcg 7 Puffs/Inhaler INH 08/16/24 08:59 1 puffs QAM SHANTANU Administration NPO Date Last Intake of Fluids: 07/16/24 Time Last Intake of Fluids: 23:00 Last Intake of Fluids Comment: 0755 sip water for med Date Last Intake of Solids: 07/16/24 Time Last Intake of Solids: 23:00 Past Medical History Medical History VADIM (obstructive sleep apnea) non-compliant w/device COPD (chronic obstructive pulmonary disease) Restrictive lung disease daily inh, prn neb>rare use Gait instability uses cane Diabetic neuropathy Pacemaker (04/2022) 04/2022, [facility], day after TAVR, [employer]; f/u [facility] Aortic stenosis hx, had TAVR 04/2022 CHF (congestive heart failure) hx-since having TAVR "no further issues" Non-ST elevation (NSTEMI) myocardial infarction pt and unsure about this? 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 Robotic L VATS converted to open procedure. Glidescope assisted PERFECTO insertion. During surgery there was significant bleeding from the pulmonary artery which forced a change to an open thoracotomy and was difficult to control. Fluids were given followed by blood and between the blood loss and manipulation in the chest there were some brief times when the eros was showing very little pulse. His CO2 tracing dropped but never went to nothing. Along with the fluids he did receive 0.5mg epi and 2 units of vasopressin in addition to occasional small doses of ephedrine and phenylephrine. Blood loss was controlled and his vitals stabilized for the rest of the case. At the end of the procedure, we changed to a single lumen ETT and Dr Mari did a bronchoscopy which showed a little blood in the bronchi but basically clear. He is making urine, his vitals are stable, we are leaving him on the ventilator for the mean time to allow him to wake and make sure he is not acidotic. Labs and chest film are being done now - report to ICU MD. Anemia hx GERD (gastroesophageal reflux disease) Hiatal hernia Hearing deficit wears hearing aids Diabetes mellitus, type 2 IDDM, +B/L FEET NEUROPATHY Hypertension Hyperlipidemia Past Family History Family History Father Cardiac disorder Myocardial infarction Other No family history of bleeding disorder Denies family history of Ovarian cancer Prostate cancer Breast cancer Colorectal cancer Past Surgical History Surgical History Hx of left cataract extraction (04/24/24) Hx of local excision of skin lesion SCC on lip S/P cardiac pacemaker procedure 04/2022, [facility] History of heart valve replacement TAVR 05/05/2022, [facility] S/P lobectomy of lung duplicate History of cardiac cath 2016- NO [facility] History of colonoscopy History of cholecystectomy 11/22/2014. DL x2. Glidescope #3 by [facility] and 7.5 ETT inserted. Grade 3 view. Social History Smoking Status: Former smoker tobacco type: smokeless tobacco Do You Dip or Chew Tobacco: No (quit) Smoking End Date: 24 years ago Hx Alcohol Use: No alcohol intake frequency: other Hx Substance Use: No substance use type: does not use Physical Exam Vital Signs Last Vital Signs Temp 36.5 C 07/17/24 09:29 Pulse 62 07/17/24 09:29 Resp 20 07/17/24 09:29 BP 169/74 H 07/17/24 09:29 Pulse Ox 91 07/17/24 09:29 O2 Del Method Room Air 07/17/24 09:29 O2 Flow Rate 1 07/17/24 07:52 Testing Laboratory Results 07/17/24 07:25 07/17/24 07:25 PT 10.6 Seconds (9.0-12.0) 07/16/24 16:40 INR 1.0 (0.9-1.1) 07/16/24 16:40 APTT 25 Seconds (21-31) 07/16/24 16:40 Urine Color Yellow 07/16/24 18:39 Urine Appearance Clear (Clear) 07/16/24 18:39 Urine pH 5.0 (4.5-7.5) 07/16/24 18:39 Ur Specific [place] 1.018 (1.000-1.030) 07/16/24 18:39 Urine Protein 1+ (Negative) H 07/16/24 18:39 Urine Glucose (UA) 3+ (Negative) H 07/16/24 18:39 Urine Ketones Negative (Negative) 07/16/24 18:39 Urine Nitrite Negative (Negative) 07/16/24 18:39 Ur Leukocyte Esterase Negative (Negative) 07/16/24 18:39 Urine WBC (Auto) 0-5 /hpf (0-5) 07/16/24 18:39 Urine RBC (Auto) 0-2 /hpf (0-2) 07/16/24 18:39 U Hyaline Cast (Auto) 0-2 /lpf (0-2) 07/16/24 18:39 U Epithel Cells (Auto) 0-2 /hpf (0-2) 07/16/24 18:39 Urine Bacteria (Auto) None Seen (None Seen) 07/16/24 18:39 Blood Type A Positive 07/16/24 19:07 Antibody Screen NEGATIVE 07/16/24 19:07 07/17/24 07/17/24 07/17/24 09:34 06:04 00:05 POC Glucose 133 H 140 H 124 H
[2024-07-17] MEDS ORDERED: fentaNYL citrate PF 100 MCG/2 ML VIAL IV PRN (09:56)
[2024-07-17] MEDS ORDERED: HYDROmorphone INJ 1 MG/ML SYRINGE IV PRN (09:56)
[2024-07-17] MEDS ORDERED: ONDANSETRON INJ 2 MG/ML 2 ML VIAL IV PRN ×2 (09:56→15:23)
[2024-07-17] MEDS ORDERED: ePHEDrine sulfate 50 MG/ML AMP IV PRN (09:56)
[2024-07-17] MEDS ORDERED: ATROPINE SULFATE 0.1 MG/ML 10ML SYR IV PRN (09:56)
[2024-07-17] MEDS ORDERED: Nursing to Pharmacy Communication SCH (10:30)
[2024-07-17] MEDS: TRANEXAMIC ACID / 0.7% NACL 1,000 MG/100 ML BAG IV ONE ×2 (11:15→13:39)
[2024-07-17] MEDS: ceFAZolin 2000MG 2,000 MG/15 ML SYR IV ONE (11:15)
--- NOTE | 2024-07-17 11:30 | Electrocardiogram Report ---
Test Reason : Blood Pressure : */* mmHG Vent. Rate : 73 BPM Atrial Rate : 73 BPM P-R Int : 192 ms QRS Dur : 96 ms QT Int : 414 ms P-R-T Axes : 59 -16 19 degrees QTcB Int : 456 ms Normal sinus rhythm Minimal voltage criteria for LVH, may be normal variant Borderline ECG When compared with ECG of 24-Apr-2022 09:36, ST no longer depressed in Inferior leads ST no longer depressed in Lateral leads Nonspecific T wave abnormality, improved in Inferior leads T wave inversion no longer evident in Lateral leads Confirmed by Young Francois ([id number]) on 07/17/2024 11:29:45 AM Referred By: REFERRED SELF Confirmed By: Yuong Francois
[2024-07-17] MEDS: TRANEXAMIC ACID 100 MG/ML 10 ML VIAL IV ONE (12:08)
[2024-07-17] MEDS: ORTHO JOINT ANESTHETIC ONE (12:15)
[2024-07-17] MEDS: ROPIVACAINE 0.5% HCL/PF 246 MG, Ketorolac (*for OR use only*) 30 MG, EPINEPHrine 30MG/3... INFIL SCH (12:15)
[2024-07-17] MEDS ORDERED: PHENYLEPHRINE 100MCG/ML 5ML SYR ONE (12:21)
[2024-07-17] MEDS: VANCOMYCIN HCL 1000MG/20ML VIAL ONE (13:33)
[2024-07-17] MEDS ORDERED: SUGAMMADEX SODIUM 200 MG/2 ML VIAL IV ONE (14:05)
--- NOTE | 2024-07-17 14:22 | XRay Report ---
XR pelvis 1-2V routine CLINICAL HISTORY: RT TOTAL HIP IN OR COMPARISON: Right femur radiographs July 16, 2024. FINDINGS: Alignment of the right hip arthroplasty is anatomic. Cerclage wire is in place. There are no unexpected radiopaque foreign bodies. There are 2 acetabular screws. There are no periprosthetic f ractures. IMPRESSION: Expected findings following total right hip arthroplasty. ACT 112: Negative or not required by law. Electronically signed by: Garrett Yanes M.D. 07/17/2024 2:21 PM
--- NOTE | 2024-07-17 14:33 | Operative Report ---
Post Operative Report Pre & Post Diagnosis Operation Date: 07/17/24 07:50 Pre-Op Diagnosis: Comminuted, displaced closed Jonathan's III basicervical femoral neck fracture of right hip with extension to the lesser trochanter Post-Op Diagnosis: Comminuted, displaced closed Jonathan's III basicervical femoral neck fracture of right hip with extension to the lesser trochanter I identified the patient and participated in the time-out.: Yes Procedure Operation Date: 07/17/24 07:50 Actual Procedures p Right Total Hip Arthroplasty(Right) 22 modifier should be added to this case due to the increased time and difficulty of this hip replacement for femoral neck fracture requiring a larger incision, additional dissection, placement of a prophylactic cerclage cable, long stem femoral implant, and dual mobility acetabular component - Robby Hess MD Surgeon Robby Hess MD Suit Maker Brian Bear DO and Johnnie Sousa PA-C. Estimated Blood Loss 400 Findings Consistent with Post-Op Diagnosis Specimens Right femoral head Anesthesia Type General Complications none Disposition Disposition: Recovery Room Indications 83-year-old male, with multiple medical comorbidities including morbid obesity with a body mass index 35, history of lung cancer, type 2 diabetes with peripheral neuropathy, chronic kidney disease, status post aortic valve replacement and pacemaker, COPD, and multiple falls, fell yesterday at home. Immediate onset of right hip pain. Unable to walk. In the emergency room x- rays were obtained as well as a CT scan of his abdomen pelvis. These showed a closed, comminuted, displaced vertical Pawels 3 basicervical femoral neck fracture with extension to the lesser trochanter. I had a long discussion with the patient about the difficult nature of his injury which is further complicated by his aforementioned medical comorbidities. Without surgical management he is unlikely to be able to walk again. However, with surgery there are significant risks. I reviewed the risks and benefits with him extensively. He elected to proceed with surgery. All questions were answered. Informed consent was signed. Description of Procedure Patient was identified in the preoperative holding area where his surgical site was marked. He is brought back to the operating room where general anesthesia was administered on the hospital bed. He was then carefully transferred onto the operating room table and then carefully moved in the lateral decubitus position. Axillary roll was placed. All bony prominences were padded. Perioperative antibiotics were administered. He was prepped and draped in the usual sterile fashion. Prior to incision a multidisciplinary timeout was called. All in the room were in agreement. I began by making a 18 cm long incision for a posterior lateral approach to the hip. This is longer than typical as we had planned on a prophylactic cerclage cable around the femur. I dissected down to subcutaneous tissues to level the fascia. The fascia was split in line with the incision. [place]arn[place] bow was placed. Quadratus femoris was dissected subperiosteally off the posterior aspect of the femur. Trochanteric bursa was reflected posteriorly to expose the piriformis and short external rotators. These were taken off the posterior hip capsule. A box cut was made and the capsule. Hemorrhage was noted from his femoral neck fracture. In order to gain additional exposure I released the gluteal sling approximately 1 cm off of the femur which allowed the gluteus kevin to retract posteriorly and expose the femur. Next, the acetabulum was exposed and the fractured femoral head neck segment was removed. Acetabulum was then prepared for a dual mobility acetabular component. We sequentially reamed up to a size 56 mm cup. This gave us healthy bleeding bone circumferentially. [place] was irrigated out and a [place] GRIPTION acetabular sector cup 56 mm in diameter was opened up and impacted into position with 40 degrees of lateral opening and 20 degrees of anteversion. 2 cancellous bone screws were placed up into the ilium. [place] was placed. The metal liner for a dual mobility acetabular component was then placed after the cup was irrigated and dried. Excellent fixation was obtained. Next, we turned our attention to the femur. Proximal femur was exposed. Patient had a comminuted femoral neck fracture with extension into the lesser trochanter. I was concerned that the fracture could propagate distally. Therefore prophylactic cabling was indicated. I dissected underneath the posterior aspect of the vastus lateralis subperiosteally. A cable was then placed distal to the lesser trochanter and tightened to 50 kg. Cables then crimped and the excess cable was discarded. Next, the lateral neck cortical bone was removed. Intramedullary guide was used. I then hand reamed up to a size 12 reamer. This was somewhat of a tight fit. Therefore we began trialing with the broaches. I got him up to a size 11. The hip was then reduced using a standard offset neck and a +5 head. His leg lengths were a little short. Therefore I upsized him to a +85 head. I was now happy with his leg lengths. He was stable in extension and external rotation. Stable in the sleeper position. 90 degrees of hip flexion he could be internally rotated 55 degrees before levering out of the cup. I was happy with the stability exam. We then in brought in radiology to take a x-ray of the pelvis and proximal femur. On the pelvis x-ray we could see that our leg lengths were symmetric. On the femur film we could see that the femoral cyst trial was in slight varus alignment. The cerclage wire was in good position. Next, I redislocated the hip and remove the femoral trial. I was not happy with the varus alignment of the femoral stem so I rereamed the femoral canal up to a size 12. Lateral bone was removed with a curved rasp as well as with the broaches. I then was able to get a size 13 trial down the femur which gave us good torsional stability and good diaphyseal fit. Femoral trial was then removed. I irrigated out the femoral canal. The size 13 standard offset [place] revision stem was opened up and impacted down in position. It sat at the appropriate level. Therefore we opened up the bipolar components for a +5 head. These were assembled on the back table. The trunnion was cleaned and dried. Hip was atraumatically reduced. We then began to close. Wounds irrigated out with dilute Betadine solution. Pericapsular injection was placed. The piriformis and short external rotators as well as the posterior capsule repair. With #2 Vicryl sutures through bone tunnels in the posterior aspect of the greater trochanter. I then placed 1 g of vancomycin powder in the wound to decrease risk of postoperative infection. Fascia was then closed with a running PDS suture. #1 PDS suture was used in subcutaneous layer. 2-0 Vicryl sutures using running fashion for the deep dermis. Skin was closed with a Zipline and Dermabond. Silverlon dressing was placed followed by compressive dressing. Patient was then carefully rolled supine, extubated, transferred recovery room in stable condition. Postoperative course: Patient be readmitted to the internal medicine service. He will be weightbearing as tolerated with posterior hip precautions. He will need to use a walker which is a lifetime restriction given his history of falls. Aspirin for DVT prophylaxis. I attest to the content of the Intraoperative Record and any orders documented therein. Any exceptions are noted below.
--- NOTE | 2024-07-17 14:37 | Operative Report ---
Post Operative Report Pre & Post Diagnosis Operation Date: 07/17/24 07:50 Pre-Op Diagnosis: Closed fracture of right hip Post-Op Diagnosis: Closed fracture of right hip I identified the patient and participated in the time-out.: Yes Procedure Operation Date: 07/17/24 07:50 Actual Procedures p Right Total Hip Arthroplasty(Right) - Robby Hess MD Surgeon Robby Hess MD Hot Bread Baker Brian Bear DO and Johnnie Sousa PA-C. Estimated Blood Loss 400 Findings Consistent with Post-Op Diagnosis Specimens Femoral head Description of Procedure I was present for the entire case. I assisted with prepping, positioning, draping, retraction, suctioning, wound closure, dressing application, application, and abduction pillow placement. Please refer to Dr. Hess's procedure note for full details I attest to the content of the Intraoperative Record and any orders documented therein. Any exceptions are noted below.
--- NOTE | 2024-07-17 14:48 | Operative Report ---
Post Operative Report Pre & Post Diagnosis Operation Date: 07/17/24 07:50 Pre-Op Diagnosis: Closed fracture of right hip Post-Op Diagnosis: Closed fracture of right hip I identified the patient and participated in the time-out.: Yes Procedure Operation Date: 07/17/24 07:50 Actual Procedures p Right Total Hip Arthroplasty(Right) - Robby Hess MD Surgeon Robby Hess MD Profiling Machine Set Up Operator Tool Brian Bear DO and Johnnie Sousa PA-C. Estimated Blood Loss 400 Findings Consistent with Post-Op Diagnosis Specimens Femoral head Description of Procedure Patient was brought to the operative suite where he underwent anesthesia. He was placed in the left lateral decubitus position. The right lower extremity was prepped and draped in usual sterile fashion. A surgical timeout was performed. The patient underwent a right total hip arthroplasty for femoral neck fracture. Please see Dr. Hess's operative report for full details. I was present and assisted with patient positioning, limb positioning, soft tissue retraction, hemostasis, hardware implantation. I attest to the content of the Intraoperative Record and any orders documented therein. Any exceptions are noted below.
--- NOTE | 2024-07-17 14:49 | Anesthesiology Progress Note ---
Date of Service July 17, 2024 Anesthesia Post Procedure Vital Signs Vital Signs: Temp Pulse Pulse Pulse Resp BP BP 07/17/24 14:40 63 14 142/60 H 07/17/24 14:30 66 17 176/69 H 07/17/24 14:24 98.6 F 63 17 182/64 H 07/17/24 10:05 62 07/17/24 09:29 97.7 F 62 20 169/74 H 07/17/24 07:52 98.1 F 60 19 189/51 H 07/17/24 02:49 98.1 F 61 18 177/68 H 07/16/24 22:35 161/64 H 07/16/24 22:12 73 07/16/24 22:06 72 20 168/78 H 07/16/24 22:05 97.7 F 75 20 176/77 H 07/16/24 22:05 97.7 F 75 20 176/77 H 07/16/24 21:03 69 16 165/75 H 07/16/24 20:26 67 07/16/24 19:00 69 18 183/96 H 07/16/24 18:00 64 18 133/54 L 07/16/24 17:03 74 16 185/86 H 07/16/24 17:02 65 24 185/86 H 07/16/24 17:02 75 07/16/24 16:38 82 07/16/24 16:37 98.0 F 82 17 213/117 H Pulse Ox O2 Del Method O2 Flow Rate 07/17/24 14:40 99 Oxymask 5 07/17/24 14:30 100 Oxymask 5 07/17/24 14:24 97 Oxymask 5 07/17/24 10:05 07/17/24 09:29 91 Room Air 07/17/24 07:52 98 Nasal Cannula 1 07/17/24 02:49 92 Nasal Cannula 3 07/16/24 22:35 07/16/24 22:12 07/16/24 22:06 98 Nasal Cannula 3 07/16/24 22:05 98 Nasal Cannula 3 07/16/24 22:05 98 Nasal Cannula 3 07/16/24 21:03 98 Room Air 07/16/24 20:26 07/16/24 19:00 99 Nasal Cannula 3 07/16/24 18:00 07/16/24 17:03 91 Room Air 07/16/24 17:02 92 07/16/24 17:02 91 Room Air 07/16/24 16:38 07/16/24 16:37 92 Room Air Pain Intensity Hip: Pain Intensity: 2 Transfer of Care Handoff Completed per policy Notes Mental Status: alert / awake / arousable and participated in evaluation Patient Amnestic to Procedure: Yes Nausea / Vomiting: adequately controlled Pain: adequately controlled Airway Patency, RR, SpO2: stable & adequate BP & HR: stable & adequate Hydration State: stable & adequate Anesthetic Complications: no major complications apparent and Pt Satisfied with anesthetic care
[2024-07-17] MEDS ORDERED: METOCLOPRAMIDE HCL INJ 5 MG/ML 2 ML VIAL IV PRN (15:23)
[2024-07-17] MEDS ORDERED: ALUMINUM/MAGNESIUM SUSP 30 ML UDC PO PRN (15:23)
[2024-07-17] MEDS ORDERED: bisacodyL 10 MG SUPP PR PRN (15:23)
[2024-07-17] MEDS ORDERED: MAGNESIUM HYDROXIDE SUSP 30 ML UDC PO PRN (15:23)
[2024-07-17] MEDS: KETOROLAC TROMETHAMINE 15 MG/ML VIAL IV SCH (15:43)
--- NOTE | 2024-07-17 16:00 | XRay Report ---
XR pelvis 1-2V routine CLINICAL HISTORY: In PACU - Post Surgical TECHNIQUE: A single frontal view of the pelvis was obtained. Comparison: Comparison is made to right hip radiograph 07/17/2024 FINDINGS: There is no evidence of an acute fracture. Right hip arthroplasty is seen. No soft tissue abnormality is seen. IMPRESSION: Redemonstration of a right hip arthroplasty. ACT 112: Negative or not required by law. Electronically signed by: Adarsh Sommers M.D. 07/17/2024 3:59 PM
--- NOTE | 2024-07-17 16:01 | Hospitalist Progress Note ---
Date of Service July 17, 2024 Assessment & Plan (1) Closed fracture of right hip: Plan: The patient suffered a fall at home. There was no associated syncope. He suffered a fracture of the right hip and underwent right total hip arthroplasty today. Orthopedic surgery consultation appreciated. Pain control measures. Anticoagulation per orthopedic service. Serial labs (2) Pacemaker: Plan: CAD, TAVR, pacemaker placement due to history of second-degree AV block 2021. Last echo 05/2023 with LV 65 to 69%, appropriately functioning AVR. EKG: Normal sinus rhythm, no territorial ischemia. Troponin normal. No evidence of pulmonary congestion/acute CHF on admission CXR. Stable overall. Continue current medical management. Left heart cath cath 2021 with large dominant RCA, without significant coronary disease. No stents required at that time. (3) Restrictive lung disease: Plan: History of COPD, restrictive lung disease due to morbid obesity, history of left upper lobectomy of for lung malignancy. Currently stable (4) Type 2 diabetes mellitus with peripheral neuropathy: Plan: ADA diet. Sliding scale coverage. Basal insulin therapy. Plan Anticipate need for rehab placement at discharge. Admission and Anticipated Discharge Date Admission Date: July 16, 2024 Subjective The patient was seen postoperatively after right total hip arthroplasty. Unfortunately, he suffered a fall at home and had a right hip fracture. Fortunately there was no syncope. IV as needed hydralazine ordered for hypertension. IV fluids have been tapered down and a diet has been reordered postoperatively. Review of Systems 2 Review of Systems: Constitutionalno fever or chills ENTno blurred vision, no double vision, no epistaxis, no sore throat Respiratoryno cough, no wheezing, no shortness of breath Cardiacno palpitations, no chest pain, no syncope [place] nausea, vomiting, diarrhea, melena, hematochezia GUno urinary retention, no urinary incontinence, no dysuria, no hematuria Musculoskeletalright hip surgical site is bandaged with no obvious bleeding Skin no bruising, no rashes, no pruritus Neurono isolated weakness, no paresthesia Psychno depression, no anxiety Physical Exam 2 Physical Exam: General-alert and oriented x3, no fever, no chills HEENT-head atraumatic and normocephalic, pupils equal and reactive to light, extraocular muscles intact Neck-no lymphadenopathy or thyromegaly, trachea midline Chest-clear to auscultation. No rales, wheezing or rhonchi Cardiac-regular rate and rhythm, normal S1 and S2 Abdomen-normal bowel sounds, no hepatosplenomegaly Extremities-right hip surgical site is bandaged with no obvious bleeding. No peripheral edema Neuro-cranial nerves II through XII intact, motor and sensory function within normal limits, strength symmetrical, no focal deficits Psych-normal affect, normal mood Results & Data Results & Data Vital Signs (Past 12 Hours) Vital Signs Temp Pulse Pulse Pulse Resp BP Pulse Ox 07/17/24 15:23 36.9 C 61 18 184/74 H 94 07/17/24 15:13 37.2 C 62 16 168/65 H 94 07/17/24 14:50 36.9 C 63 14 142/60 H 99 07/17/24 14:40 63 14 142/60 H 99 07/17/24 14:30 66 17 176/69 H 100 07/17/24 14:24 37.0 C 63 17 182/64 H 97 07/17/24 10:05 62 07/17/24 09:29 36.5 C 62 20 169/74 H 91 07/17/24 07:52 36.7 C 60 19 189/51 H 98 O2 Del Method O2 Flow Rate 07/17/24 15:23 Room Air 07/17/24 15:13 Nasal Cannula 2 07/17/24 14:50 Oxymask 5 07/17/24 14:40 Oxymask 5 07/17/24 14:30 Oxymask 5 07/17/24 14:24 Oxymask 5 07/17/24 10:05 07/17/24 09:29 Room Air 07/17/24 07:52 Nasal Cannula 1 Laboratory Results 07/17/24 07:25 07/17/24 07:25 PG Care Time/CCT Total # of Minutes Spent Total Time Spent with Patient: Total time spent is greater than 50% in coordination of care (as documented) at patient's floor/unit and/or counseling patient: Coding Level of Care Code 27414 SUB INP/OBS CARE 3/50MIN Diagnoses Closed fracture of right hip S72.001A Encounter type: initial encounter Pacemaker Z95.0 Restrictive lung disease J98.4 Type 2 diabetes mellitus with peripheral neuropathy E11.42 (1) Closed fracture of right hip Encounter type: initial encounter Qualified Code(s): S72.001A - Fracture of unspecified part of neck of right femur, initial encounter for closed fracture
[2024-07-17] MEDS: SENNA 8.6 MG TAB PO SCH (20:57)
[2024-07-17] MEDS: DOCUSATE SODIUM 100 MG CAP PO SCH (20:57)
[2024-07-17] MEDS: LANTUS PER UNIT CHARGE SQ SCH (20:59)
[2024-07-17] MEDS: ceFAZolin 2000MG 2,000 MG/15 ML SYR IV SCH (21:04)
[2024-07-18 06:54] LABS: Basophils # (auto) 0.03 K/uL (0.00-0.20); Basophils % (auto) 0.3 %; Eosinophils # (auto) 0.25 K/uL (0.00-0.50); Eosinophils % (auto) 2.1 %; Hematocrit (blood only) 38.9 % (42.0-52.0); Hemoglobin 12.4 g/dl (14.0-18.0); Immature Granulocytes # (auto) 0.04 K/uL (0.01-0.20); Immature Granulocytes % (auto) 0.3 %; Lymphocytes # (auto) 0.79 K/uL (1.20-3.40); Lymphocytes % (auto) 6.7 %; Mean Corpuscular Hemoglobin 30.5 pg (25.0-34.0); Mean Corpuscular Hgb Conc 31.9 g/dL (32.0-36.0); Mean Corpuscular Volume 95.8 fL (80.0-100.0); Mean Platelet Volume 10.3 fL (9.4-12.4); Monocytes # (auto) 1.11 K/uL (0.11-0.59); Monocytes % (auto) 9.5 %; Neutrophils % (auto) 81.1 %; Platelet Count 150 K/uL (130-400); RDW Coefficient of Variation 14.5 % (11.5-14.5); Red Blood Count 4.06 M/uL (4.70-6.10); White Blood Count 11.72 K/ul (4.8-10.8)
[2024-07-18 07:15] LABS: BUN Creatinine Ratio 16.8 (10-20); Calcium 7.8 mg/dl (8.6-10.3); Creatinine Clr Calc Pharmacy 35.3 ml/min; Potassium 4.2 mmol/L (3.5-5.1)
[2024-07-18] MEDS: oxyCODONE HCL IR 5 MG TAB (IMMEDIATE RELEASE) PO PRN ×2 (08:05→14:39)
--- NOTE | 2024-07-18 09:28 | Orthopedic Progress Note ---
Date of Service July 18, 2024 Assessment & Plan (1) S/P hip replacement: Plan: Postop day #1 status post right total hip arthroplasty secondary to comminuted, displaced closed Jonathan's III basicervical femoral neck fracture of right hip with extension to the lesser trochanter. - Patient seems more confused today. Reviewed with hospitalist, probably combination of factors. -Neurovascularly intact. -Foam tape dressing removed. Underlying dressing is clean, dry, intact. Will leave this in place. He can get this wet in the shower but should not submerge it. -Creatinine elevated today at 1.85, somewhat elevated compared to baseline. Toradol was discontinued. -Weightbearing as tolerated with walker. - PT/OT - Reviewed hip precautions with patient - will need to be reiterated given his confusion - DVT prophylaxis with TEDs, SCDs, and aspirin - sales engineer account manager met with patient at bedside. Will follow. - Reviewed confusion and creatinine with hospitalist Dr. John. -2-week follow-up scheduled in discharge tab (2) Closed fracture of right hip: Admission and Anticipated Discharge Date Admission Date: July 16, 2024 Subjective Patient seen in bed this morning. He is not having any pain in his right hip. He is wondering where he is right now. Denies any chest pain or shortness of breath. No nausea or vomiting. No new numbness or tingling in his toes. Does not believe he was up with physical therapy yet. Physical Exam Constitutional: Laying in bed in no apparent distress. Cardiovascular: DP pulses 2+ bilaterally Musculoskeletal: Right lower extremity: Abduction pillow in place. Bilateral knee high TEDs and SCDs in place. Foam tape dressing removed from hip. Silverlon dressing is in place, intact, dry. There is no ecchymosis posteriorly. No soft tissue induration. Able to move all toes. Strength 4/5 with ankle plantarflexion, dorsiflexion, inversion, eversion. No pain elicited with logroll of the hip. Skin: Pain, warm, dry. Capillary refill less than 2 seconds in right toes Neurologic: Confused, not oriented to place. No sensory deficits in bilateral toes to light touch Results & Data Vital Signs (Past 12 Hours) Vital Signs Temp Pulse Pulse Resp BP Pulse Ox O2 Del Method 07/18/24 07:44 98.1 F 69 18 155/68 H 96 Nasal Cannula 07/18/24 03:26 98.2 F 78 18 127/82 95 Room Air 07/17/24 22:50 97.9 F 60 18 137/69 96 Room Air 07/17/24 22:00 61 O2 Flow Rate 07/18/24 07:44 2 07/18/24 03:26 07/17/24 22:50 07/17/24 22:00 Laboratory Results 07/18/24 07/18/24 07/17/24 07:25 06:11 20:09 WBC 11.72 H RBC 4.06 L Hgb 12.4 L Hct 38.9 L MCV 95.8 MCH 30.5 MCHC 31.9 L RDW Std Deviation 51.0 H RDW Coeff of Mac 14.5 Plt Count 150 MPV 10.3 Immature Gran % (Auto) 0.3 Neut % (Auto) 81.1 Lymph % (Auto) 6.7 [place] % (Auto) 9.5 Eos % (Auto) 2.1 Baso % (Auto) 0.3 Neut # (Auto) 9.50 H Lymph # (Auto) 0.79 L [place] # (Auto) 1.11 H Eos # (Auto) 0.25 Baso # (Auto) 0.03 Immature Gran # (Auto) 0.04 Sodium 140 Potassium 4.2 Chloride 109 H Carbon Dioxide 25 Anion Gap 6 BUN 31 H Creatinine 1.85 H D Est Cr Clr Drug Dosing 35.3 eGFR 36.14 BUN/Creatinine Ratio 16.8 Glucose 131 H POC Glucose 131 H 137 H Calcium 7.8 L 07/17/24 07/17/24 07/17/24 20:04 19:54 15:51 WBC RBC Hgb Hct MCV MCH MCHC RDW Std Deviation RDW Coeff of Mac Plt Count MPV Immature Gran % (Auto) Neut % (Auto) Lymph % (Auto) [place] % (Auto) Eos % (Auto) Baso % (Auto) Neut # (Auto) Lymph # (Auto) [place] # (Auto) Eos # (Auto) Baso # (Auto) Immature Gran # (Auto) Sodium Potassium Chloride Carbon Dioxide Anion Gap BUN Creatinine Est Cr Clr Drug Dosing eGFR BUN/Creatinine Ratio Glucose POC Glucose 137 H 330 H* 140 H Calcium 07/17/24 07/17/24 14:28 09:34 WBC RBC Hgb Hct MCV MCH MCHC RDW Std Deviation RDW Coeff of Mac Plt Count MPV Immature Gran % (Auto) Neut % (Auto) Lymph % (Auto) [place] % (Auto) Eos % (Auto) Baso % (Auto) Neut # (Auto) Lymph # (Auto) [place] # (Auto) Eos # (Auto) Baso # (Auto) Immature Gran # (Auto) Sodium Potassium Chloride Carbon Dioxide Anion Gap BUN Creatinine Est Cr Clr Drug Dosing eGFR BUN/Creatinine Ratio Glucose POC Glucose 123 H 133 H Calcium Diagnostic Findings Pelvis X-Ray 07/17/24 00:00 XR pelvis 1-2V routine CLINICAL HISTORY: RT TOTAL HIP IN OR COMPARISON: Right femur radiographs July 16, 2024. FINDINGS: Alignment of the right hip arthroplasty is anatomic. Cerclage wire is in place. There are no unexpected radiopaque foreign bodies. There are 2 acetabular screws. There are no periprosthetic fractures. IMPRESSION: Expected findings following total right hip arthroplasty. ACT 112: Negative or not required by law. Electronically signed by: Garrett Yanes M.D. 07/17/2024 2:21 PM Pelvis X-Ray 07/17/24 15:09 XR pelvis 1-2V routine CLINICAL HISTORY: In PACU - Post Surgical TECHNIQUE: A single frontal view of the pelvis was obtained. Comparison: Comparison is made to right hip radiograph 07/17/2024 FINDINGS: There is no evidence of an acute fracture. Right hip arthroplasty is seen. No soft tissue abnormality is seen. IMPRESSION: Redemonstration of a right hip arthroplasty. ACT 112: Negative or not required by law. Electronically signed by: Adarsh Sommers M.D. 07/17/2024 3:59 PM (2) Closed fracture of right hip Encounter type: initial encounter Qualified Code(s): S72.001A - Fracture of unspecified part of neck of right femur, initial encounter for closed fracture
[2024-07-18] MEDS: MAGNESIUM HYDROXIDE SUSP 30 ML UDC PO PRN (14:40)
--- NOTE | 2024-07-18 15:34 | Hospitalist Progress Note ---
Date of Service July 18, 2024 Assessment & Plan (1) Closed fracture of right hip: Plan: The patient suffered a fall at home. There was no associated syncope. He suffered a fracture of the right hip and underwent right total hip arthroplasty on July 17. Postoperative day #1. Orthopedic surgery consultation appreciated. Pain control measures. Anticoagulation per orthopedic service. Serial labs (2) Pacemaker: Plan: CAD, TAVR, pacemaker placement due to history of second-degree AV block 2021. Last echo 05/2023 with LV 65 to 69%, appropriately functioning AVR. EKG: Normal sinus rhythm, no territorial ischemia. Troponin normal. No evidence of pulmonary congestion/acute CHF on admission CXR. Stable overall. Continue current medical management. Left heart cath cath 2021 with large dominant RCA, without significant coronary disease. No stents required at that time. Continue current medical management (3) Restrictive lung disease: Plan: History of COPD, restrictive lung disease due to morbid obesity, history of left upper lobectomy of for lung malignancy. Currently stable (4) Type 2 diabetes mellitus with peripheral neuropathy: Plan: ADA diet. Sliding scale coverage. Basal insulin therapy. Plan Anticipate need for rehab placement at discharge within the next 2 to 3 days. Admission and Anticipated Discharge Date Admission Date: July 16, 2024 Subjective Alert. No acute distress. Postoperative day #1 after right total hip arthroplasty. He suffered a fall at home fracturing the right hip. He has some confusion which is undoubtedly related to his hospitalization, age, and possibly parenteral narcotics. Intravenous fluids have been discontinued. Dilaudid has also been discontinued. He will use oxy IR as needed for pain. Creatinine is slightly higher at 1.8 compared to yesterday 1.4. Will follow. Diabetes is under satisfactory control at this time. OT and PT have been ordered. He will need placement at the time of discharge within the next 2 or 3 days. Review of Systems 2 Review of Systems: Constitutionalno fever or chills ENTno blurred vision, no double vision, no epistaxis, no sore throat Respiratoryno cough, no wheezing, no shortness of breath Cardiacno palpitations, no chest pain, no syncope Santino nausea, vomiting, diarrhea, melena, hematochezia GUno urinary retention, no urinary incontinence, no dysuria, no hematuria Musculoskeletalright hip surgical site is clean and dry. No obvious bleeding Skin no bruising, no rashes, no pruritus Neurono isolated weakness, no paresthesia Psychno depression, no anxiety Physical Exam 2 Physical Exam: General-alert and oriented x2, no fever. Sometimes confused HEENT-head atraumatic and normocephalic, pupils equal and reactive to light, extraocular muscles intact Neck-no lymphadenopathy or thyromegaly, trachea midline Chest-clear to auscultation. No rales, wheezing or rhonchi Cardiac-regular rate and rhythm, normal S1 and S2 Abdomen-normal bowel sounds, no hepatosplenomegaly Extremities-right hip surgical site is unremarkable. No bleeding or signs of infection. Neuro-cranial nerves II through XII intact, motor and sensory function within normal limits, strength symmetrical, no focal deficits Psych-normal affect, normal mood Results & Data Results & Data Vital Signs (Past 12 Hours) Vital Signs Temp Pulse Pulse Resp BP Pulse Ox O2 Del Method 07/18/24 15:11 37.3 C 69 20 134/62 95 Nasal Cannula 07/18/24 11:21 36.7 C 67 18 119/56 L 93 Nasal Cannula 07/18/24 08:00 Nasal Cannula 07/18/24 08:00 65 07/18/24 07:44 36.7 C 69 18 155/68 H 96 Nasal Cannula O2 Flow Rate 07/18/24 15:11 2 07/18/24 11:21 2 07/18/24 08:00 2 07/18/24 08:00 07/18/24 07:44 2 Laboratory Results 07/18/24 06:11 07/18/24 06:11 PG Care Time/CCT Total # of Minutes Spent Total Time Spent with Patient: Total time spent is greater than 50% in coordination of care (as documented) at patient's floor/unit and/or counseling patient: Coding Level of Care Code 43083 SUB INP/OBS CARE 3/50MIN Diagnoses Closed fracture of right hip S72.001A Encounter type: initial encounter Pacemaker Z95.0 Restrictive lung disease J98.4 Type 2 diabetes mellitus with peripheral neuropathy E11.42 (1) Closed fracture of right hip Encounter type: initial encounter Qualified Code(s): S72.001A - Fracture of unspecified part of neck of right femur, initial encounter for closed fracture
[2024-07-18] MEDS: ASPIRIN 81 MG ECTAB PO SCH (20:13)
[2024-07-19 07:13] LABS: Basophils # (auto) 0.03 K/uL (0.00-0.20); Basophils % (auto) 0.3 %; Hematocrit (blood only) 37.3 % (42.0-52.0); Hemoglobin 11.8 g/dl (14.0-18.0); Immature Granulocytes # (auto) 0.05 K/uL (0.01-0.20); Immature Granulocytes % (auto) 0.5 %; Lymphocytes # (auto) 0.86 K/uL (1.20-3.40); Lymphocytes % (auto) 8.2 %; Mean Corpuscular Hemoglobin 29.9 pg (25.0-34.0); Mean Corpuscular Hgb Conc 31.6 g/dL (32.0-36.0); Mean Corpuscular Volume 94.4 fL (80.0-100.0); Mean Platelet Volume 10.2 fL (9.4-12.4); Monocytes # (auto) 1.35 K/uL (0.11-0.59); Monocytes % (auto) 12.8 %; Neutrophils # (auto) 8.13 K/uL (1.40-6.50); Neutrophils % (auto) 77.2 %; Platelet Count 151 K/uL (130-400); RDW Coefficient of Variation 14.2 % (11.5-14.5); RDW Standard Deviation 49.3 fL (36.4-46.3); Red Blood Count 3.95 M/uL (4.70-6.10); White Blood Count 10.52 K/ul (4.8-10.8)
[2024-07-19 07:22] LABS: BUN Creatinine Ratio 19.2 (10-20); Calcium 8.2 mg/dl (8.6-10.3); Creatinine Clr Calc Pharmacy 38.8 ml/min; Potassium 4.1 mmol/L (3.5-5.1)
--- NOTE | 2024-07-19 09:55 | XRay Report ---
EXAM: Radiograph of the Chest 1 View INDICATION: Hypoxia. TECHNIQUE: Frontal view of the chest. COMPARISON: 07/16/2024 FINDINGS: Lungs and pleural spaces: Stable left basilar pleural effusion and thickening. No pneumothorax. Heart: Stable large shadow, aortic valve prosthetic stents and pacing device. Mediastinum: Normal contour. Bones/joints: No fracture, erosion or dislocation. Soft tissues: No abnormality noted. No radiopaque foreign body noted. Upper abdomen: No abnormality noted. IMPRESSION: Stable left basilar pleural effusion and thickening. ACT 112: Negative or not required by law. Electronically signed by Yael Morris 07-19-2024 09:54 AM
--- NOTE | 2024-07-19 11:49 | Hospitalist Progress Note ---
Date of Service July 19, 2024 Assessment & Plan (1) Closed fracture of right hip: Plan: The patient suffered a fall at home. There was no associated syncope. He suffered a fracture of the right hip and underwent right total hip arthroplasty on July 17. Postoperative day #2. Orthopedic surgery consultation appreciated. Pain control measures. Anticoagulation per orthopedic service. Serial labs (2) Pacemaker: Plan: CAD, TAVR, pacemaker placement due to history of second-degree AV block 2021. Last echo 05/2023 with LV 65 to 69%, appropriately functioning AVR. EKG: Normal sinus rhythm, no territorial ischemia. Troponin normal. No evidence of pulmonary congestion/acute CHF on admission CXR. Stable overall. Continue current medical management. Left heart cath cath 2021 with large dominant RCA, without significant coronary disease. No stents required at that time. Continue current medical management (3) Restrictive lung disease: Plan: History of COPD, restrictive lung disease due to morbid obesity, history of left upper lobectomy of for lung malignancy. Currently stable (4) Type 2 diabetes mellitus with peripheral neuropathy: Plan: ADA diet. Sliding scale coverage. Basal insulin therapy. (5) Hospital psychosis: Plan: He apparently required restraints last evening, July 18. Supportive care. Will administer Zyprexa IM as needed (6) Acute respiratory failure with hypoxia: Plan: Supplemental oxygen per nasal cannula to maintain saturation greater than 90%. Probably due to atelectasis. No overt CHF seen on chest x-ray. Incentive spirometry has been ordered. Wean oxygen off as tolerated Plan Anticipate need for rehab placement at discharge within the next 2 to 3 days. Admission and Anticipated Discharge Date Admission Date: July 16, 2024 Subjective Awake and alert. He apparently has developed some hospital psychosis requiring restraints at night. Creatinine is 1.7 today and appears stable. Blood pressure is acceptable at 167/70. Postoperative day #2 after right total hip arthroplasty. He continues to require oxygen and chest x-ray done today, July 19, is noted. Incentive spirometry has been ordered. Review of Systems 2 Review of Systems: Constitutionalno fever or chills ENTno blurred vision, no double vision, no epistaxis, no sore throat Respiratoryno cough, no wheezing, no shortness of breath Cardiacno palpitations, no chest pain, no syncope Santino nausea, vomiting, diarrhea, melena, hematochezia GUno urinary retention, no urinary incontinence, no dysuria, no hematuria Musculoskeletalright hip surgical site is clean and dry. No obvious bleeding Skin no bruising, no rashes, no pruritus Neurono isolated weakness, no paresthesia Psychno depression, no anxiety Physical Exam 2 Physical Exam: General-alert and oriented x2, no fever. Sometimes confused HEENT-head atraumatic and normocephalic, pupils equal and reactive to light, extraocular muscles intact Neck-no lymphadenopathy or thyromegaly, trachea midline Chest-diminished breath sounds bilaterally. No rales, wheezing or rhonchi Cardiac-regular rate and rhythm, normal S1 and S2 Abdomen-normal bowel sounds, no hepatosplenomegaly Extremities-right hip surgical site is unremarkable. No bleeding or signs of infection. Neuro-cranial nerves II through XII intact, motor and sensory function within normal limits, strength symmetrical, no focal deficits Psych-normal affect, normal mood Results & Data Results & Data Vital Signs (Past 12 Hours) Vital Signs Temp Pulse Resp BP Pulse Ox O2 Del Method O2 Flow Rate 07/19/24 11:30 36.5 C 102 H 20 154/79 H 97 Nasal Cannula 07/19/24 08:03 36.8 C 99 H 18 167/70 H 93 Nasal Cannula 2.0 07/19/24 03:24 38.5 C H 83 18 173/68 H 90 Nasal Cannula 2.0 Laboratory Results 07/19/24 06:44 07/19/24 06:44 PG Care Time/CCT Total # of Minutes Spent Total Time Spent with Patient: Total time spent is greater than 50% in coordination of care (as documented) at patient's floor/unit and/or counseling patient: Coding Level of Care Code 48210 SUB INP/OBS CARE 3/50MIN Diagnoses Closed fracture of right hip S72.001A Encounter type: initial encounter Pacemaker Z95.0 Restrictive lung disease J98.4 Type 2 diabetes mellitus with peripheral neuropathy E11.42 Hospital psychosis F23 Acute respiratory failure with hypoxia J96.01 (1) Closed fracture of right hip Encounter type: initial encounter Qualified Code(s): S72.001A - Fracture of unspecified part of neck of right femur, initial encounter for closed fracture
--- NOTE | 2024-07-19 12:17 | Orthopedic Progress Note ---
Date of Service July 19, 2024 Assessment & Plan (1) S/P hip replacement: Plan: Postop day #2 status post right total hip arthroplasty secondary to comminuted, displaced closed Jonathan's III basicervical femoral neck fracture of right hip with extension to the lesser trochanter. - Patient continues to be confused today. -Neurovascularly intact. -Silverlon dressing remains in place and is dry. There is no visible bleeding. It can remain in place and he can shower over it. -Creatinine has improved slightly at 1.72. BUN remains elevated but is consistent with his usual values. -Weightbearing as tolerated with walker. -Continue PT/OT - Reviewed hip precautions with patient - will need to be reiterated given his confusion - DVT prophylaxis with TEDs, SCDs, and aspirin -Follow-up in the office in 2 weeks for removal of his Silverlon. He will likely need placed at rehab or [facility] facility based on insurance coverage. Admission and Anticipated Discharge Date Admission Date: July 16, 2024 Subjective This 83-year-old male is seen today in his room. He continues to have confusion. He is complaining about spending most of the day in his wheelchair. He states that he "goes up there, and sits in the wheelchair and they do not do anything with me. I can see them painting, but they are not doing anything with me. It is not right." He wants me to talk to the front office about making sure that he is getting what he needs. When asked to clarify what he needs, he cannot specifically tell me. He states he has trouble getting the words out. He is currently eating his lunch. He has no complaints about his hip. He is now postop day 2 from total hip arthroplasty. Physical Exam Physical Exam: General: Well-developed, well-nourished, elderly male, in no acute distress. Pleasantly confused. Sitting in bed. Eating his lunch. Skin: Warm dry with good turgor. No rashes. Silverlon dressing is in place on the right hip. There is no surrounding ecchymosis. There is no drainage through the dressing. Musculoskeletal: The patient has no significant discomfort with logrolling of his hip or passive flexion of his hip and knee. He has intact motor function of his ankles and toes. Strength is 5/5 resisted dorsiflexion of both ankles. It is also 5/5 for resisted plantarflexion. Neurologic: Gross sensation is intact across both lower extremities by soft touch. Peripheral pulses are 2+. Results & Data Vital Signs (Past 12 Hours) Vital Signs Temp Pulse Resp BP Pulse Ox O2 Del Method O2 Flow Rate 07/19/24 11:30 36.5 C 102 H 20 154/79 H 97 Nasal Cannula 07/19/24 08:03 36.8 C 99 H 18 167/70 H 93 Nasal Cannula 2.0 07/19/24 03:24 38.5 C H 83 18 173/68 H 90 Nasal Cannula 2.0 Laboratory Results CBC obtained this morning shows a white count of 10.5. H&H of 11.8 and 37.3. Normal platelets at 151. Sodium 141, potassium 4.1, chloride 109, CO2 26. BUN of 33 with creatinine 1.72. This is consistent with his baseline. Glucose this morning was 131.
[2024-07-19] MEDS: OLANZapine 10 MG/2.1 ML SDV IM PRN (18:30)
--- NOTE | 2024-07-20 09:23 | Orthopedic Progress Note ---
Date of Service July 20, 2024 Assessment & Plan (1) S/P hip replacement: Plan: Postop day #4 status post right total hip arthroplasty secondary to comminuted, displaced closed Jonathan's III basicervical femoral neck fracture of right hip with extension to the lesser trochanter. - Confusion seems somewhat improved today. [place] to be hospital psychosis per hospitalist. -Neurovascularly intact. -Silverlon dressing remains in place and is dry. There is no visible bleeding. It can remain in place and he can shower over it. -Weightbearing as tolerated with walker. -Continue PT/OT - Hip precautions will need to be reiterated given his confusion - DVT prophylaxis with TEDs, SCDs, and aspirin -Follow-up in the office in 2 weeks for removal of his Silverlon. He will likely need placed at rehab or intermediate facility based on insurance coverage. Admission and Anticipated Discharge Date Admission Date: July 16, 2024 Subjective Patient seen in bed today, about to participate in PT and OT. He is not having much pain in his right hip. When asked where he is right now, he states "they tell me I'm in the hospital." Physical Exam Constitutional: In no distress laying in bed Cardiovascular: right PT pulse 2+ Musculoskeletal: Right lower extremity: Abduction pillow in place. Hip silverlon dressing clean, dry, intact, no drainage. no soft tissue induration or ecchymosis. no pain with passive log roll of the hip. able to set quad but unable to perform straight leg raise. no pain with passive ROM of knee. able to move all toes and plantarflex and dorsiflex ankle. Neurologic: no sensory deficits bilateral lower extremities. Results & Data Vital Signs (Past 12 Hours) Vital Signs Temp Pulse Pulse Resp BP Pulse Ox O2 Del Method 07/20/24 07:39 Room Air 07/20/24 07:15 98.4 F 76 19 193/64 H 92 Nasal Cannula 07/20/24 07:08 63 07/20/24 03:31 97.9 F 77 18 155/70 H 95 Nasal Cannula 07/20/24 00:46 72 07/19/24 23:43 98.6 F 80 19 153/68 H 95 Nasal Cannula 07/19/24 22:55 Nasal Cannula O2 Flow Rate 07/20/24 07:39 07/20/24 07:15 2 07/20/24 07:08 07/20/24 03:31 1.0 07/20/24 00:46 07/19/24 23:43 1.0 07/19/24 22:55 2
[2024-07-20] MEDS: hydrALAZINE HCL 25 MG TAB PO SCH (09:52)
[2024-07-20] MEDS: TAMSULOSIN HCL 0.4 MG CAP PO PRN (09:53)
[2024-07-20] MEDS ORDERED: hydrALAZINE HCL 20 MG/ML VIAL IV PRN (10:08)
--- NOTE | 2024-07-20 11:01 | Hospitalist Progress Note ---
Date of Service July 20, 2024 Assessment & Plan (1) Closed fracture of right hip: Plan: The patient suffered a fall at home. There was no associated syncope. He suffered a fracture of the right hip and underwent right total hip arthroplasty on July 17. Postoperative day #3. Orthopedic surgery consultation appreciated. Pain control measures. Anticoagulation per orthopedic service. Serial labs (2) Pacemaker: Plan: CAD, TAVR, pacemaker placement due to history of second-degree AV block 2021. Last echo 05/2023 with LV 65 to 69%, appropriately functioning AVR. EKG: Normal sinus rhythm, no territorial ischemia. Troponin normal. No evidence of pulmonary congestion/acute CHF on admission CXR. Stable overall. Continue current medical management. Left heart cath cath 2021 with large dominant RCA, without significant coronary disease. No stents required at that time. Continue current medical management (3) Restrictive lung disease: Plan: History of COPD, restrictive lung disease due to morbid obesity, history of left upper lobectomy of for lung malignancy. Currently stable (4) Type 2 diabetes mellitus with peripheral neuropathy: Plan: ADA diet. Sliding scale coverage. Basal insulin therapy. (5) Hospital psychosis: Plan: He apparently required restraints once on the evening of July 18. Supportive care. Will administer Zyprexa IM as needed (6) Acute respiratory failure with hypoxia: Plan: Resolved with incentive spirometry. He is now on room air. This appears to have been due to pulmonary atelectasis. No overt CHF seen on chest x-ray. Continue incentive spirometry. Plan Anticipate need for rehab placement at discharge when arrangements are finalized. He is medically stable for discharge Admission and Anticipated Discharge Date Admission Date: July 16, 2024 Subjective Awake and alert but confusion remains. Most likely, this will persist until he returns home until he is in familiar surroundings. Hydralazine added for blood pressure control. He is now on room air. Incentive spirometry has helped with the atelectasis that was probably causing the hypoxia. He is awaiting rehab placement. Labs are pending Review of Systems 2 Review of Systems: Constitutionalno fever or chills ENTno blurred vision, no double vision, no epistaxis, no sore throat Respiratoryno cough, no wheezing, no shortness of breath Cardiacno palpitations, no chest pain, no syncope Santino nausea, vomiting, diarrhea, melena, hematochezia GUno urinary retention, no urinary incontinence, no dysuria, no hematuria Musculoskeletalright hip surgical site is clean and dry. No obvious bleeding Skin no bruising, no rashes, no pruritus Neurono isolated weakness, no paresthesia Psychno depression, no anxiety Physical Exam 2 Physical Exam: General-alert and oriented x2, no fever. Sometimes confused HEENT-head atraumatic and normocephalic, pupils equal and reactive to light, extraocular muscles intact Neck-no lymphadenopathy or thyromegaly, trachea midline Chest-diminished breath sounds bilaterally. No rales, wheezing or rhonchi Cardiac-regular rate and rhythm, normal S1 and S2 Abdomen-normal bowel sounds, no hepatosplenomegaly Extremities-right hip surgical site is unremarkable. No bleeding or signs of infection. Neuro-cranial nerves II through XII intact, motor and sensory function within normal limits, strength symmetrical, no focal deficits Psych-normal affect, normal mood. He does have hospital delirium Results & Data Results & Data Vital Signs (Past 12 Hours) Vital Signs Temp Pulse Pulse Resp BP BP Pulse Ox 07/20/24 10:37 36.7 C 64 17 148/56 H 94 07/20/24 07:39 07/20/24 07:15 36.9 C 76 19 193/64 H 92 07/20/24 07:08 63 07/20/24 03:31 36.6 C 77 18 155/70 H 95 07/20/24 00:46 72 07/19/24 23:43 37.0 C 80 19 153/68 H 95 O2 Del Method O2 Flow Rate 07/20/24 10:37 Nasal Cannula 2 07/20/24 07:39 Room Air 07/20/24 07:15 Nasal Cannula 2 07/20/24 07:08 07/20/24 03:31 Nasal Cannula 1.0 07/20/24 00:46 07/19/24 23:43 Nasal Cannula 1.0 Laboratory Results 07/19/24 06:44 07/19/24 06:44 PG Care Time/CCT Total # of Minutes Spent Total Time Spent with Patient: Total time spent is greater than 50% in coordination of care (as documented) at patient's floor/unit and/or counseling patient: Coding Level of Care Code 68533 SUB INP/OBS CARE 3/50MIN Diagnoses Closed fracture of right hip S72.001A Encounter type: initial encounter Pacemaker Z95.0 Restrictive lung disease J98.4 Type 2 diabetes mellitus with peripheral neuropathy E11.42 Hospital psychosis F23 Acute respiratory failure with hypoxia J96.01 (1) Closed fracture of right hip Encounter type: initial encounter Qualified Code(s): S72.001A - Fracture of unspecified part of neck of right femur, initial encounter for closed fracture
[2024-07-20 11:51] LABS: Basophils # (auto) 0.05 K/uL (0.00-0.20); Basophils % (auto) 0.4 %; Eosinophils # (auto) 0.19 K/uL (0.00-0.50); Eosinophils % (auto) 1.6 %; Hematocrit (blood only) 39.9 % (42.0-52.0); Hemoglobin 12.6 g/dl (14.0-18.0); Immature Granulocytes # (auto) 0.05 K/uL (0.01-0.20); Immature Granulocytes % (auto) 0.4 %; Lymphocytes # (auto) 1.13 K/uL (1.20-3.40); Lymphocytes % (auto) 9.5 %; Mean Corpuscular Hemoglobin 30.2 pg (25.0-34.0); Mean Corpuscular Hgb Conc 31.6 g/dL (32.0-36.0); Mean Corpuscular Volume 95.7 fL (80.0-100.0); Mean Platelet Volume 10.3 fL (9.4-12.4); Neutrophils # (auto) 9.14 K/uL (1.40-6.50); Neutrophils % (auto) 77.1 %; Platelet Count 191 K/uL (130-400); RDW Coefficient of Variation 14.3 % (11.5-14.5); RDW Standard Deviation 50.5 fL (36.4-46.3); Red Blood Count 4.17 M/uL (4.70-6.10); White Blood Count 11.86 K/ul (4.8-10.8)
[2024-07-20 12:01] LABS: Calcium 8.7 mg/dl (8.6-10.3); Creatinine Clr Calc Pharmacy 44.5 ml/min; Potassium 4.2 mmol/L (3.5-5.1)
[2024-07-21 07:30] LABS: Basophils # (auto) 0.03 K/uL (0.00-0.20); Basophils % (auto) 0.3 %; Eosinophils # (auto) 0.28 K/uL (0.00-0.50); Hematocrit (blood only) 36.3 % (42.0-52.0); Hemoglobin 11.6 g/dl (14.0-18.0); Immature Granulocytes # (auto) 0.04 K/uL (0.01-0.20); Immature Granulocytes % (auto) 0.4 %; Lymphocytes # (auto) 0.79 K/uL (1.20-3.40); Lymphocytes % (auto) 8.4 %; Mean Corpuscular Hemoglobin 30.2 pg (25.0-34.0); Mean Corpuscular Volume 94.5 fL (80.0-100.0); Monocytes # (auto) 1.12 K/uL (0.11-0.59); Monocytes % (auto) 11.8 %; Neutrophils % (auto) 76.1 %; Platelet Count 188 K/uL (130-400); RDW Coefficient of Variation 14.2 % (11.5-14.5); RDW Standard Deviation 48.6 fL (36.4-46.3); Red Blood Count 3.84 M/uL (4.70-6.10); White Blood Count 9.46 K/ul (4.8-10.8)
[2024-07-21 07:49] LABS: BUN Creatinine Ratio 21.3 (10-20); Calcium 8.4 mg/dl (8.6-10.3); Creatinine Clr Calc Pharmacy 43.1 ml/min; Potassium 4.3 mmol/L (3.5-5.1)
--- NOTE | 2024-07-21 12:52 | Hospitalist Progress Note ---
Date of Service July 21, 2024 Assessment & Plan (1) Closed fracture of right hip: Plan: fall at home. There was no associated syncope. He suffered a fracture of the right hip and underwent right total hip arthroplasty on July 17. Postoperative day #4. Orthopedic surgery consultation appreciated. Pain control measures. Anticoagulation per orthopedic service. Serial labs (2) Pacemaker: Plan: CAD, TAVR, pacemaker placement due to history of second-degree AV block 2021. Last echo 05/2023 with LV 65 to 69%, appropriately functioning AVR. EKG: Normal sinus rhythm, no territorial ischemia. Troponin normal. No evidence of pulmonary congestion/acute CHF on admission CXR. Stable overall. Continue current medical management. Left heart cath cath 2021 with large dominant RCA, without significant coronary disease. No stents required at that time. Continue current medical management (3) Restrictive lung disease: Plan: History of COPD, restrictive lung disease due to morbid obesity, history of left upper lobectomy of for lung malignancy. Currently stable (4) Type 2 diabetes mellitus with peripheral neuropathy: Plan: ADA diet. Sliding scale coverage. Basal insulin therapy. (5) Hospital psychosis: Plan: He apparently required restraints once on the evening of July 18. Supportive care. Will administer Zyprexa IM as needed (6) Acute respiratory failure with hypoxia: Plan: Resolved with incentive spirometry. He is now on room air. This appears to have been due to pulmonary atelectasis. No overt CHF seen on chest x-ray. Continue incentive spirometry. Plan IPR placement denied by insurance. Case management pursuing SNF placement. [facility] per family. He is medically stable for discharge Admission and Anticipated Discharge Date Admission Date: July 16, 2024 Subjective Awake and alert. No distress. Hydralazine further uptitrated today, July 21. IPR placement was denied and case management pursuing SNF placement. Review of Systems 2 Review of Systems: Constitutionalno fever or chills ENTno blurred vision, no double vision, no epistaxis, no sore throat Respiratoryno cough, no wheezing, no shortness of breath Cardiacno palpitations, no chest pain, no syncope Santino nausea, vomiting, diarrhea, melena, hematochezia GUno urinary retention, no urinary incontinence, no dysuria, no hematuria Musculoskeletalright hip surgical site is clean and dry. No obvious bleeding Skin no bruising, no rashes, no pruritus Neurono isolated weakness, no paresthesia Psychno depression, no anxiety Physical Exam 2 Physical Exam: General-alert and oriented x2, no fever. Sometimes confused HEENT-head atraumatic and normocephalic, pupils equal and reactive to light, extraocular muscles intact Neck-no lymphadenopathy or thyromegaly, trachea midline Chest-diminished breath sounds bilaterally. No rales, wheezing or rhonchi Cardiac-regular rate and rhythm, normal S1 and S2 Abdomen-normal bowel sounds, no hepatosplenomegaly Extremities-right hip surgical site is unremarkable. No bleeding or signs of infection. Neuro-cranial nerves II through XII intact, motor and sensory function within normal limits, strength symmetrical, no focal deficits Psych-normal affect, normal mood. He does have hospital delirium Results & Data Results & Data Vital Signs (Past 12 Hours) Vital Signs Temp Pulse Pulse Resp BP BP Pulse Ox 07/21/24 12:16 36.9 C 63 18 137/71 96 07/21/24 11:58 07/21/24 08:00 36.7 C 74 20 154/61 H 97 07/21/24 07:36 74 07/21/24 02:54 36.8 C 61 19 162/52 H 92 O2 Del Method O2 Flow Rate 07/21/24 12:16 Room Air 07/21/24 11:58 Room Air 07/21/24 08:00 Nasal Cannula 2 07/21/24 07:36 07/21/24 02:54 Nasal Cannula 2.0 Laboratory Results 07/21/24 07:03 07/21/24 07:03 PG Care Time/CCT Total # of Minutes Spent Total Time Spent with Patient: Total time spent is greater than 50% in coordination of care (as documented) at patient's floor/unit and/or counseling patient: Coding Level of Care Code 37692 SUB INP/OBS CARE 3/50MIN Diagnoses Closed fracture of right hip S72.001A Encounter type: initial encounter Pacemaker Z95.0 Restrictive lung disease J98.4 Type 2 diabetes mellitus with peripheral neuropathy E11.42 Hospital psychosis F23 Acute respiratory failure with hypoxia J96.01 (1) Closed fracture of right hip Encounter type: initial encounter Qualified Code(s): S72.001A - Fracture of unspecified part of neck of right femur, initial encounter for closed fracture
[2024-07-21] MEDS: hydrALAZINE TAB 50 MG TAB PO SCH (13:29)
--- NOTE | 2024-07-21 16:31 | Orthopedic Progress Note ---
Date of Service July 21, 2024 Assessment & Plan (1) S/P hip replacement: Plan: Postop day #5 status post right total hip arthroplasty secondary to comminuted, displaced closed Jonathan's III basicervical femoral neck fracture of right hip with extension to the lesser trochanter. Patient was alert and oriented x3 -Neurovascularly intact. -Silverlon dressing remains in place and is dry. There is no visible bleeding. It can remain in place and he can shower over it. -Weightbearing as tolerated with walker. -Continue PT/OT - Hip precautions will need to be reiterated given his confusion - DVT prophylaxis with TEDs, SCDs, and aspirin -Follow-up in the office in 2 weeks for removal of his Silverlon. He will likely need placed at rehab or long-term facility based on insurance coverage. Admission and Anticipated Discharge Date Admission Date: July 16, 2024 Subjective This 83-year-old male seen today for follow-up of a right total hip arthroplasty with Dr. Hess after sustaining a hip fracture. Patient states that he is doing very well. He states his pain is well-controlled with the oral pain medication he has been given. States he has been able to ambulate with physical therapy without discomfort. He is currently sitting comfortably in bedside chair. Patient denies chest pain, shortness of breath, fever, chills, sweats, numbness or tingling in his right lower extremity. He states that his biggest issue is that he has not been able to move his bowels. Review of Systems Review of Systems: All systems reviewed & are unremarkable except as noted in Subjective Physical Exam Physical Exam: Right hip: Silverlon dressing is clean dry and intact left in place. Patient is able to perform active straight leg raise test. He is able to actively dorsi and plantarflex his foot. He experiences no discomfort with logroll testing. He tolerates passive hip flexion near 90 degrees and has no discomfort with light passive internal or external hip rotation. Patient is able to detect light sensation to touch over the pads of all digits. His peripheral pulses are 1+. Results & Data Vital Signs (Past 12 Hours) Vital Signs Temp Pulse Pulse Resp BP BP Pulse Ox 07/21/24 16:14 36.8 C 61 18 163/65 H 94 07/21/24 15:25 61 07/21/24 12:16 36.9 C 63 18 137/71 96 07/21/24 11:58 07/21/24 08:00 36.7 C 74 20 154/61 H 97 07/21/24 07:36 74 O2 Del Method O2 Flow Rate 07/21/24 16:14 Nasal Cannula 07/21/24 15:25 07/21/24 12:16 Room Air 07/21/24 11:58 Room Air 07/21/24 08:00 Nasal Cannula 2 07/21/24 07:36 Diagnostic Findings Laboratory Results WBC 9.46 K/ul (4.8-10.8) 07/21/24 07:03 RBC 3.84 M/uL (4.70-6.10) L 07/21/24 07:03 Hgb 11.6 g/dl (14.0-18.0) L 07/21/24 07:03 POC Hgb 17.3 g/dl (14.0-18.0) 07/16/24 16:45 Hct 36.3 % (42.0-52.0) L 07/21/24 07:03 POC Hct 51 % (42-52) 07/16/24 16:45 MCV 94.5 fL (80.0-100.0) 07/21/24 07:03 MCH 30.2 pg (25.0-34.0) 07/21/24 07:03 MCHC 32.0 g/dL (32.0-36.0) 07/21/24 07:03 RDW Std Deviation 48.6 fL (36.4-46.3) H 07/21/24 07:03 RDW Coeff of Mac 14.2 % (11.5-14.5) 07/21/24 07:03 Plt Count 188 K/uL (130-400) 07/21/24 07:03 MPV 10.0 fL (9.4-12.4) 07/21/24 07:03 Immature Gran % (Auto) 0.4 % 07/21/24 07:03 Neut % (Auto) 76.1 % 07/21/24 07:03 Lymph % (Auto) 8.4 % 07/21/24 07:03 Morgan % (Auto) 11.8 % 07/21/24 07:03 Eos % (Auto) 3.0 % 07/21/24 07:03 Baso % (Auto) 0.3 % 07/21/24 07:03 Neut # (Auto) 7.20 K/uL (1.40-6.50) H 07/21/24 07:03 Lymph # (Auto) 0.79 K/uL (1.20-3.40) L 07/21/24 07:03 Morgan # (Auto) 1.12 K/uL (0.11-0.59) H 07/21/24 07:03 Eos # (Auto) 0.28 K/uL (0.00-0.50) 07/21/24 07:03 Baso # (Auto) 0.03 K/uL (0.00-0.20) 07/21/24 07:03 Immature Gran # (Auto) 0.04 K/uL (0.01-0.20) 07/21/24 07:03 PT 10.6 Seconds (9.0-12.0) 07/16/24 16:40 INR 1.0 (0.9-1.1) 07/16/24 16:40 APTT 25 Seconds (21-31) 07/16/24 16:40 PTT Ratio 0.9 07/16/24 16:40 POC Sodium 143 mmol/L (135-144) 07/16/24 16:45 Sodium 141 mmol/L (136-145) 07/21/24 07:03 POC Potassium 4.3 mmol/L (3.3-5.0) 07/16/24 16:45 Potassium 4.3 mmol/L (3.5-5.1) 07/21/24 07:03 POC Chloride 105 mmol/L (101-112) 07/16/24 16:45 Chloride 108 mmol/L (98-107) H 07/21/24 07:03 Carbon Dioxide 26 mmol/L (21-32) 07/21/24 07:03 POC Total CO2 27 mmol/L (24-31) 07/16/24 16:45 Anion Gap 7 (3-11) 07/21/24 07:03 POC Anion Gap 16.0 mmol/L (16-25) 07/16/24 16:45 POC BUN 26 mg/dl (7-18) H 07/16/24 16:45 BUN 33 mg/dl (6-23) H 07/21/24 07:03 Creatinine 1.55 mg/dl (0.6-1.4) H 07/21/24 07:03 POC Creatinine 1.7 mg/dl (0.6-1.3) H 07/16/24 16:45 Est Cr Clr Drug Dosing 43.1 ml/min 07/21/24 07:03 eGFR 44.69 07/21/24 07:03 BUN/Creatinine Ratio 21.3 (10-20) H 07/21/24 07:03 Glucose 133 mg/dl (70-99(Fasting)) H 07/21/24 07:03 POC Glucose 178 mg/dl (70-99) H 07/21/24 10:59 POC Glucose (other) 124 mg/dl (70-99) H 07/16/24 16:45 Calcium 8.4 mg/dl (8.6-10.3) L 07/21/24 07:03 POC Ioniz Calcium Carlton 1.17 mmol/l (1.12-1.32) 07/16/24 16:45 Total Bilirubin 0.8 mg/dl (0.2-1.0) 07/16/24 16:40 AST 23 U/L (13-39) 07/16/24 16:40 ALT 23 U/L (7-52) 07/16/24 16:40 Alkaline Phosphatase 49 U/L (34-104) 07/16/24 16:40 Total Creatine Kinase 124 U/L (30-223) 07/16/24 16:40 Troponin I High Sens 10.5 pg/ml (0-20) 07/16/24 16:40 Total Protein 7.0 gm/dl (6.0-8.3) 07/16/24 16:40 Albumin 4.5 gm/dl (3.4-5.0) 07/16/24 16:40 Globulin 2.5 gm/dl (2.5-4.0) 07/16/24 16:40 Albumin/Globulin Ratio 1.8 (0.9-2) 07/16/24 16:40 Lipase 41 U/L (11-82) 07/16/24 16:40 Urine Color Yellow 07/16/24 18:39 Urine Appearance Clear (Clear) 07/16/24 18:39 Urine pH 5.0 (4.5-7.5) 07/16/24 18:39 Ur Specific [place] 1.018 (1.000-1.030) 07/16/24 18:39 Urine Protein 1+ (Negative) H 07/16/24 18:39 Urine Glucose (UA) 3+ (Negative) H 07/16/24 18:39 Urine Ketones Negative (Negative) 07/16/24 18:39 Urine Blood Trace (Negative) H 07/16/24 18:39 Urine Nitrite Negative (Negative) 07/16/24 18:39 Urine Bilirubin Negative (Negative) 07/16/24 18:39 Urine Urobilinogen Negative (Negative) 07/16/24 18:39 Ur Leukocyte Esterase Negative (Negative) 07/16/24 18:39 Urine WBC (Auto) 0-5 /hpf (0-5) 07/16/24 18:39 Urine RBC (Auto) 0-2 /hpf (0-2) 07/16/24 18:39 U Hyaline Cast (Auto) 0-2 /lpf (0-2) 07/16/24 18:39 U Epithel Cells (Auto) 0-2 /hpf (0-2) 07/16/24 18:39 Urine Bacteria (Auto) None Seen (None Seen) 07/16/24 18:39 Blood Type A Positive 07/16/24 19:07 Antibody Screen NEGATIVE 07/16/24 19:[address] 07/16/24 16:35 EXAM: CT Cervical Spine Without Intravenous Contrast INDICATION: Trauma. TECHNIQUE: Axial computed tomography images of the cervical spine without intravenous contrast. Sagittal and coronal reformatted images were created and reviewed. This CT exam was performed using one or more of the following dose reduction techniques: automated exposure control, adjustment of the mA and/or kV according to patient size, and/or use of iterative reconstruction technique. COMPARISON: No relevant prior studies available. FINDINGS: Limitations: None. Vertebrae: The spine is tilted to the right and straightened which may be related to spasm. No fracture or subluxation. There is mild spondylosis and facet arthrosis at all levels. Small foci of calcified plaque noted in the intracranial vertebral arteries. Discs/spinal canal/neural foramina: Diffuse mild disc space narrowing noted. Soft tissues: No significant abnormality noted. Vasculature: There is moderate atherosclerosis of the cervical carotid arteries. Lung apices: No significant abnormality noted. IMPRESSION: 1. No fracture. Mild degenerative changes. 2. Significant atherosclerotic calcification of the cervical internal carotid arteries. ACT 112: Negative or not required by law. Electronically signed by Yael Morris 07-16-2024 5:[address] 07/16/24 16:35 EXAM: CT Head Without Intravenous Contrast INDICATION: Trauma. TECHNIQUE: Axial computed tomography images of the head/brain without intravenous contrast. Sagittal and/or coronal reformats are provided. Sagittal and coronal reformatted images were created and reviewed. This CT exam was performed using one or more of the following dose reduction techniques: automated exposure control, adjustment of the mA and/or kV according to patient size, and/or use of iterative reconstruction technique. COMPARISON: No relevant prior studies available. FINDINGS: Limitations: None. Brain and extra-axial spaces: There is age appropriate cortical atrophy and chronic ischemic periventricular white matter hypodensity. No acute infarct, hemorrhage or mass noted. Bones/joints: No acute changes. Soft tissues: No significant abnormality noted. Vasculature: No acute abnormality noted. Sinuses: Minimal chronic mucosal thickening right maxillary sinus. Mastoid air cells: No mastoid effusion. Orbits: No significant abnormality noted. IMPRESSION: Cerebral atrophy. No acute changes. ACT 112: Negative or not required by law. Electronically signed by Yael Morris 07-16-2024 5:50 PM Hip/Pelvis X-Ray 07/16/24 16:35 EXAM: Radiographs of the Right Hip 3 Views INDICATION: Posttraumatic pain. TECHNIQUE: Front view pelvis and AP and frog leg lateral views of the right hip. Images obtained at 5:18 PM. COMPARISON: No relevant prior studies available. FINDINGS: Limitations: None. Bones/joints: There is an acute nondisplaced fracture base of the right femoral neck. No dislocation. Soft tissues: No abnormality noted. No radiopaque foreign body noted. IMPRESSION: There is an acute nondisplaced fracture base of the right femoral neck. ACT 112: Negative or not required by law. Electronically signed by Yael Morris 07-16-2024 5:37 PM Abdomen/Pelvis CT 07/16/24 16:56 EXAM: CT Abdomen and Pelvis Without Intravenous Contrast INDICATION: Trauma. TECHNIQUE: Axial computed tomography images of the abdomen and pelvis without intravenous contrast. Sagittal and coronal reformatted images were created and reviewed. This CT exam was performed using one or more of the following dose reduction techniques: automated exposure control, adjustment of the mA and/or kV according to patient size, and/or use of iterative reconstruction technique. COMPARISON: No relevant prior studies available. FINDINGS: Limitations: Assessment of solid organ integrity limited in the absence of IV contrast. Lung bases: No abnormality noted. Pleural space: No visualized pleural effusion or pneumothorax. Heart: Cardiomegaly noted. Cardiac pacing device noted. Metallic artifact limits assessment of lead integrity. Mediastinum: No abnormality noted. ABDOMEN: Liver: Lack of intravenous contrast limits detection of some masses. No abnormality noted. Gallbladder and bile ducts: Cholecystectomy. No ductal dilation or stone noted. Pancreas: No pancreatic mass, calcification, inflammation or ductal dilation noted. Spleen: No significant abnormality noted. Adrenals: No significant abnormality noted. Kidneys and ureters: There is mild left perinephric stranding typically scarring. No hydronephrosis or urinary stone. No urinary gas. Stomach and bowel: Colonic diverticulosis without diverticulitis. No intestinal thickening or obstruction. PELVIS: Appendix: No findings to suggest acute appendicitis. Bladder: Mildly distended urinary bladder. No gas or stone. Reproductive: No abnormalities noted. ABDOMEN and PELVIS: Intraperitoneal space: No free air. No significant fluid collection. Bones/joints: There is an acute nondisplaced fracture of the right femoral neck. Degenerative changes noted throughout the spine. Chronic appearing left rib deformities. Soft tissues: No significant abnormality noted. Vasculature: Atherosclerotic calcification of the aorta and branches. No aneurysm. Lymph nodes: No pathologically enlarged lymph nodes. IMPRESSION: 1. There is an acute nondisplaced fracture of the right femoral neck. 2. Limited assessment for solid organ injury in the absence of contrast. No traumatic change of the solid organs noted. ACT 112: Negative or not required by law. Electronically signed by Yael Morris 07-16-2024 5:[address] 07/16/24 16:56 EXAM: CT Chest Without Intravenous Contrast INDICATION: Fall. TECHNIQUE: Axial computed tomography images of the chest without intravenous contrast. Sagittal and coronal reformatted images were created and reviewed. This CT exam was performed using one or more of the following dose reduction techniques: automated exposure control, adjustment of the mA and/or kV according to patient size, and/or use of iterative reconstruction technique. COMPARISON: 03/01/2022 FINDINGS: Limitations: Aortic integrity is not assessed in the absence of IV contrast. Lungs and pleural spaces: Mild scarring or atelectasis present in the bases. No consolidation. No pneumothorax. Mild left basilar pleural thickening. Heart: Cardiomegaly noted. Cardiac pacing device noted. Metallic artifact limits assessment of lead integrity. Aortic valve prosthetic stent present. Thyroid: No abnormality noted. Bones/joints: Stable old fractures of the left 5th through 8th ribs. No acute rib fracture noted. Started him and visualize shoulders intact. Degenerative. Soft tissues: No significant abnormality noted. Vasculature: Normal variant aberrant right subclavian artery. Atherosclerosis. No aneurysm. Lymph nodes: No enlarged lymph nodes. IMPRESSION: 1. Limited assessment in the absence of IV contrast. No traumatic change identified. 2. Stable old fractures of the left 5th through 8th ribs. No acute rib fracture noted. Was noted throughout the spine without fracture. ACT 112: Negative or not required by law. Electronically signed by Yael Morris 07-16-2024 6:00 PM Femur X-Ray 07/16/24 18:41 Exam(s): XR RIGHT FEMUR, 2 views EXAM: XR Right Femur, 2 Views CLINICAL HISTORY: Preop planning. TECHNIQUE: Frontal and lateral views of the right femur. COMPARISON: No relevant prior studies available. FINDINGS: Bones/joints: Mildly impacted subcapital femoral neck fracture. No dislocation. Soft tissues: Unremarkable. IMPRESSION: Mildly impacted subcapital femoral neck fracture. Electronically signed by: Shelby Ivory MD 07/16/24 20:32 PM Pelvis X-Ray 07/17/24 15:09 XR pelvis 1-2V routine CLINICAL HISTORY: In PACU - Post Surgical TECHNIQUE: A single frontal view of the pelvis was obtained. Comparison: Comparison is made to right hip radiograph 07/17/2024 FINDINGS: There is no evidence of an acute fracture. Right hip arthroplasty is seen. No soft tissue abnormality is seen. IMPRESSION: Redemonstration of a right hip arthroplasty. ACT 112: Negative or not required by law. Electronically signed by: Adarsh Sommers M.D. 07/17/2024 3:59 PM Chest X-Ray 07/19/24 09:02 EXAM: Radiograph of the Chest 1 View INDICATION: Hypoxia. TECHNIQUE: Frontal view of the chest. COMPARISON: 07/16/2024 FINDINGS: Lungs and pleural spaces: Stable left basilar pleural effusion and thickening. No pneumothorax. Heart: Stable large shadow, aortic valve prosthetic stents and pacing device. Mediastinum: Normal contour. Bones/joints: No fracture, erosion or dislocation. Soft tissues: No abnormality noted. No radiopaque foreign body noted. Upper abdomen: No abnormality noted. IMPRESSION: Stable left basilar pleural effusion and thickening. ACT 112: Negative or not required by law. Electronically signed by Yael Morris 07-19-2024 09:54 AM
[2024-07-22 07:00] LABS: Base Excess VBG 3.9 mEq/L; HCO3 VBG 28 mmol/L; Oxygen Saturation VBG 76.8 %; PCO2 VBG 38 mmHg (38-50); PO2 VBG 44 mmHg; pH VBG 7.47 (7.36-7.41)
[2024-07-22 07:05] LABS: Basophils # (auto) 0.05 K/uL (0.00-0.20); Basophils % (auto) 0.6 %; Eosinophils # (auto) 0.21 K/uL (0.00-0.50); Eosinophils % (auto) 2.3 %; Hematocrit (blood only) 37.4 % (42.0-52.0); Hemoglobin 12.4 g/dl (14.0-18.0); Immature Granulocytes # (auto) 0.05 K/uL (0.01-0.20); Immature Granulocytes % (auto) 0.6 %; Lymphocytes # (auto) 0.73 K/uL (1.20-3.40); Mean Corpuscular Hemoglobin 30.4 pg (25.0-34.0); Mean Corpuscular Hgb Conc 33.2 g/dL (32.0-36.0); Mean Corpuscular Volume 91.7 fL (80.0-100.0); Mean Platelet Volume 10.1 fL (9.4-12.4); Monocytes # (auto) 1.07 K/uL (0.11-0.59); Monocytes % (auto) 11.8 %; Neutrophils # (auto) 6.96 K/uL (1.40-6.50); Neutrophils % (auto) 76.7 %; Platelet Count 215 K/uL (130-400); RDW Coefficient of Variation 13.7 % (11.5-14.5); RDW Standard Deviation 46.5 fL (36.4-46.3); Red Blood Count 4.08 M/uL (4.70-6.10); White Blood Count 9.07 K/ul (4.8-10.8)
[2024-07-22 07:36] LABS: BUN Creatinine Ratio 22.5 (10-20); Calcium 8.7 mg/dl (8.6-10.3); Creatinine Clr Calc Pharmacy 48.4 ml/min; Potassium 4.3 mmol/L (3.5-5.1)
--- NOTE | 2024-07-22 09:30 | Orthopedic Progress Note ---
Date of Service July 22, 2024 Assessment & Plan (1) S/P hip replacement: Plan: Postop day #5 status post right total hip arthroplasty secondary to comminuted, displaced closed Jonathan's III basicervical femoral neck fracture of right hip with extension to the lesser trochanter. Awaiting placement. Follow case management Confusion is ongoing, per nursing patient was very confused overnight. He is oriented to person and president. Neurovascularly intact. Pain seems well controlled. Silverlon dressing remains in place and is dry. There is no visible bleeding. It can remain in place and he can shower over it. Weightbearing as tolerated with walker. Continue PT/OT Continue reiterating hip precautions Asked nursing to re-apply KENYETTA stockings. DVT prophylaxis with TEDs, SCDs, and aspirin Follow-up in the office in 2 weeks for removal of his Silverlon. Admission and Anticipated Discharge Date Admission Date: July 16, 2024 Subjective Patient seen sitting upright in chair today watching TV. He denies any significant pain and has been participating with physical therapy. He denies any numbness or tingling in his right lower extremity. Physical Exam Constitutional: Sitting upright in chair in no distress. Watching TV. Cardiovascular: Right DP pulse 2+ Musculoskeletal: right lower extremity: Silverlon dressing intact, clean, dry with no drainage. No ecchymosis about the hip. Soft tissue is not indurated. No pain with passive log roll or hip flexion. Moves all toes. Strength 5/5 with ankle plantarflexion and dorsiflexion. Neurologic: Alert to person and president. Not alert to place or year. Results & Data Vital Signs (Past 12 Hours) Vital Signs Temp Pulse Pulse Resp BP Pulse Ox O2 Del Method 07/22/24 08:02 98.1 F 76 20 172/69 H 93 Room Air 07/22/24 03:56 98.4 F 80 19 142/58 H 96 Room Air 07/21/24 22:52 77 07/21/24 22:51 98.1 F 66 20 140/66 98 Room Air
[2024-07-22 11:33] VITALS: RESP 18
[2024-07-22] MEDS: POLYETHYLENE (MIRALAX) 17 GM PACK PO SCH (11:37)
--- NOTE | 2024-07-22 12:45 | Hospitalist Progress Note ---
Date of Service July 22, 2024 Assessment & Plan (1) Closed fracture of right hip: Plan: fall at home. There was no associated syncope. He suffered a fracture of the right hip and underwent right total hip arthroplasty on July 17. Postoperative day #4. Orthopedic surgery consultation appreciated. Pain control measures. Anticoagulation per orthopedic service. Serial labs (2) Pacemaker: Plan: CAD, TAVR, pacemaker placement due to history of second-degree AV block 2021. Last echo 05/2023 with LV 65 to 69%, appropriately functioning AVR. EKG: Normal sinus rhythm, no territorial ischemia. Troponin normal. No evidence of pulmonary congestion/acute CHF on admission CXR. Stable overall. Continue current medical management. Left heart cath cath 2021 with large dominant RCA, without significant coronary disease. No stents required at that time. Continue current medical management (3) Restrictive lung disease: Plan: History of COPD, restrictive lung disease due to morbid obesity, history of left upper lobectomy of for lung malignancy. Currently stable (4) Type 2 diabetes mellitus with peripheral neuropathy: Plan: ADA diet. Sliding scale coverage. Basal insulin therapy. (5) Hospital psychosis: Plan: He apparently required restraints on the evening of July 18. Supportive care. Will administer Zyprexa IM as needed (6) Acute respiratory failure with hypoxia: Plan: Resolved with incentive spirometry. He is now on room air. This appears to have been due to pulmonary atelectasis. No overt CHF seen on chest x-ray. Continue incentive spirometry. Plan IPR placement denied by insurance. Case management pursuing SNF placement. [facility] his first preference per family. He is medically stable for discharge Admission and Anticipated Discharge Date Admission Date: July 16, 2024 Subjective Alert and pleasant but confused. No new problems. Postoperative day #5 after right total hip arthroplasty. He presented after a fall at home with a right hip fracture. MiraLAX has been added to the Colace for his constipation. He is awaiting SNF placement at either [facility] or [facility]. Review of Systems 2 Review of Systems: Constitutionalno fever or chills ENTno blurred vision, no double vision, no epistaxis, no sore throat Respiratoryno cough, no wheezing, no shortness of breath Cardiacno palpitations, no chest pain, no syncope Santino nausea, vomiting, diarrhea, melena, hematochezia GUno urinary retention, no urinary incontinence, no dysuria, no hematuria Musculoskeletalright hip surgical site is clean and dry. No obvious bleeding Skin no bruising, no rashes, no pruritus Neurono isolated weakness, no paresthesia Psychno depression, no anxiety Physical Exam 2 Physical Exam: General-alert and oriented x2, no fever. Sometimes confused HEENT-head atraumatic and normocephalic, pupils equal and reactive to light, extraocular muscles intact Neck-no lymphadenopathy or thyromegaly, trachea midline Chest-diminished breath sounds bilaterally. No rales, wheezing or rhonchi Cardiac-regular rate and rhythm, normal S1 and S2 Abdomen-normal bowel sounds, no hepatosplenomegaly Extremities-right hip surgical site is unremarkable. No bleeding or signs of infection. Neuro-cranial nerves II through XII intact, motor and sensory function within normal limits, strength symmetrical, no focal deficits Psych-normal affect, normal mood. He is confused however Results & Data Results & Data Vital Signs (Past 12 Hours) Vital Signs Temp Pulse Pulse Resp BP Pulse Ox Pulse Ox 07/22/24 11:33 36.7 C 62 18 145/68 H 95 07/22/24 08:02 36.7 C 76 20 172/69 H 93 07/22/24 08:00 98 H 07/22/24 07:00 93 07/22/24 03:56 36.9 C 80 19 142/58 H 96 O2 Del Method O2 Del Method 07/22/24 11:33 Room Air 07/22/24 08:02 Room Air 07/22/24 08:00 07/22/24 07:00 Room Air 07/22/24 03:56 Room Air Laboratory Results 07/22/24 06:42 07/22/24 06:42 PG Care Time/CCT Total # of Minutes Spent Total Time Spent with Patient: Total time spent is greater than 50% in coordination of care (as documented) at patient's floor/unit and/or counseling patient: Coding Level of Care Code 03597 SUB INP/OBS CARE 2/35MIN Diagnoses Closed fracture of right hip S72.001A Encounter type: initial encounter Pacemaker Z95.0 Restrictive lung disease J98.4 Type 2 diabetes mellitus with peripheral neuropathy E11.42 Hospital psychosis F23 Acute respiratory failure with hypoxia J96.01 (1) Closed fracture of right hip Encounter type: initial encounter Qualified Code(s): S72.001A - Fracture of unspecified part of neck of right femur, initial encounter for closed fracture
[2024-07-22] MEDS: ACETAMINOPHEN 325 MG TAB PO PRN (18:38)
[2024-07-22] MEDS: MELATONIN 3 MG TAB PO PRN (20:04)
[2024-07-23 07:31] LABS: Basophils # (auto) 0.04 K/uL (0.00-0.20); Basophils % (auto) 0.6 %; Eosinophils # (auto) 0.36 K/uL (0.00-0.50); Eosinophils % (auto) 5.4 %; Hematocrit (blood only) 35.3 % (42.0-52.0); Hemoglobin 11.6 g/dl (14.0-18.0); Immature Granulocytes # (auto) 0.04 K/uL (0.01-0.20); Immature Granulocytes % (auto) 0.6 %; Lymphocytes # (auto) 1.11 K/uL (1.20-3.40); Lymphocytes % (auto) 16.6 %; Mean Corpuscular Hemoglobin 30.4 pg (25.0-34.0); Mean Corpuscular Hgb Conc 32.9 g/dL (32.0-36.0); Mean Corpuscular Volume 92.7 fL (80.0-100.0); Mean Platelet Volume 10.3 fL (9.4-12.4); Monocytes # (auto) 0.91 K/uL (0.11-0.59); Monocytes % (auto) 13.6 %; Neutrophils # (auto) 4.24 K/uL (1.40-6.50); Neutrophils % (auto) 63.2 %; Platelet Count 218 K/uL (130-400); RDW Coefficient of Variation 13.8 % (11.5-14.5); RDW Standard Deviation 47.2 fL (36.4-46.3); Red Blood Count 3.81 M/uL (4.70-6.10)
[2024-07-23 07:49] LABS: Anion Gap 5 (3-11); BUN Creatinine Ratio 24.5 (10-20); Blood Urea Nitrogen 34 mg/dl (6-23); Calcium 8.6 mg/dl (8.6-10.3); Carbon Dioxide 27 mmol/L (21-32); Chloride 107 mmol/L (98-107); Creatinine Clr Calc Pharmacy 47.2 ml/min; Glucose 126 mg/dl (70-99(Fasting)); Sodium 139 mmol/L (136-145)
--- NOTE | 2024-07-23 14:42 | Hospitalist Progress Note ---
Date of Service July 23, 2024 Assessment & Plan (1) Closed fracture of right hip: Plan: fall at home. There was no associated syncope. He suffered a fracture of the right hip and underwent right total hip arthroplasty on July 17. Postoperative day #6. Orthopedic surgery consultation appreciated. Pain control measures. Anticoagulation per orthopedic service. Serial labs (2) Pacemaker: Plan: CAD, TAVR, pacemaker placement due to history of second-degree AV block 2021. Last echo 05/2023 with LV 65 to 69%, appropriately functioning AVR. EKG: Normal sinus rhythm, no territorial ischemia. Troponin normal. No evidence of pulmonary congestion/acute CHF on admission CXR. Stable overall. Continue current medical management. Left heart cath cath 2021 with large dominant RCA, without significant coronary disease. No stents required at that time. Continue current medical management (3) Restrictive lung disease: Plan: History of COPD, restrictive lung disease due to morbid obesity, history of left upper lobectomy of for lung malignancy. Currently stable (4) Type 2 diabetes mellitus with peripheral neuropathy: Plan: ADA diet. Sliding scale coverage. Basal insulin therapy. (5) Hospital psychosis: Plan: He apparently required restraints on the evening of July 18. Supportive care. Will administer Zyprexa IM as needed (6) Acute respiratory failure with hypoxia: Plan: Resolved with incentive spirometry. He is now on room air. This appears to have been due to pulmonary atelectasis. No overt CHF seen on chest x-ray. Continue incentive spirometry. Plan IPR placement denied by insurance. Case management pursuing SNF placement. [facility] his first preference per family. He is medically stable for discharge Admission and Anticipated Discharge Date Admission Date: July 16, 2024 Subjective Alert and pleasant. Oriented to name only however. Hydralazine has been added for blood pressure control and blood pressure is acceptable. Postoperative day #6 after right total hip arthroplasty for the right hip fracture suffered when he fell at home. Glucose 126 this morning. Awaiting SNF placement at either [facility] or [facility] Review of Systems 2 Review of Systems: Constitutionalno fever or chills ENTno blurred vision, no double vision, no epistaxis, no sore throat Respiratoryno cough, no wheezing, no shortness of breath Cardiacno palpitations, no chest pain, no syncope Santino nausea, vomiting, diarrhea, melena, hematochezia GUno urinary retention, no urinary incontinence, no dysuria, no hematuria Musculoskeletalright hip surgical site is clean and dry. No obvious bleeding Skin no bruising, no rashes, no pruritus Neurono isolated weakness, no paresthesia Psychno depression, no anxiety Physical Exam 2 Physical Exam: General-alert and oriented x2, no fever. Sometimes confused HEENT-head atraumatic and normocephalic, pupils equal and reactive to light, extraocular muscles intact Neck-no lymphadenopathy or thyromegaly, trachea midline Chest-diminished breath sounds bilaterally. No rales, wheezing or rhonchi Cardiac-regular rate and rhythm, normal S1 and S2 Abdomen-normal bowel sounds, no hepatosplenomegaly Extremities-right hip surgical site is unremarkable. No bleeding or signs of infection. Neuro-cranial nerves II through XII intact, motor and sensory function within normal limits, strength symmetrical, no focal deficits Psych-normal affect, normal mood. He is confused however Results & Data Results & Data Vital Signs (Past 12 Hours) Vital Signs Temp Pulse Pulse Resp BP Pulse Ox O2 Del Method 07/23/24 14:23 62 07/23/24 11:28 36.9 C 60 18 147/64 H 95 Room Air 07/23/24 08:00 Room Air 07/23/24 08:00 62 07/23/24 07:35 36.7 C 60 18 170/73 H 96 Room Air 07/23/24 03:26 36.3 C L 64 18 179/51 H 95 Room Air Laboratory Results 07/23/24 06:58 07/23/24 09:21 PG Care Time/CCT Total # of Minutes Spent Total Time Spent with Patient: Total time spent is greater than 50% in coordination of care (as documented) at patient's floor/unit and/or counseling patient: Coding Level of Care Code 96500 SUB INP/OBS CARE 2/35MIN Diagnoses Closed fracture of right hip S72.001A Encounter type: initial encounter Pacemaker Z95.0 Restrictive lung disease J98.4 Type 2 diabetes mellitus with peripheral neuropathy E11.42 Hospital psychosis F23 Acute respiratory failure with hypoxia J96.01 (1) Closed fracture of right hip Encounter type: initial encounter Qualified Code(s): S72.001A - Fracture of unspecified part of neck of right femur, initial encounter for closed fracture
[2024-07-24 07:21] LABS: Basophils # (auto) 0.05 K/uL (0.00-0.20); Basophils % (auto) 0.6 %; Eosinophils # (auto) 0.31 K/uL (0.00-0.50); Eosinophils % (auto) 3.8 %; Hematocrit (blood only) 34.8 % (42.0-52.0); Hemoglobin 11.4 g/dl (14.0-18.0); Immature Granulocytes # (auto) 0.05 K/uL (0.01-0.20); Immature Granulocytes % (auto) 0.6 %; Lymphocytes # (auto) 1.27 K/uL (1.20-3.40); Lymphocytes % (auto) 15.4 %; Mean Corpuscular Hemoglobin 30.3 pg (25.0-34.0); Mean Corpuscular Hgb Conc 32.8 g/dL (32.0-36.0); Mean Corpuscular Volume 92.6 fL (80.0-100.0); Mean Platelet Volume 10.5 fL (9.4-12.4); Monocytes # (auto) 0.94 K/uL (0.11-0.59); Monocytes % (auto) 11.4 %; Neutrophils # (auto) 5.62 K/uL (1.40-6.50); Neutrophils % (auto) 68.2 %; Platelet Count 275 K/uL (130-400); RDW Coefficient of Variation 13.5 % (11.5-14.5); RDW Standard Deviation 46.5 fL (36.4-46.3); Red Blood Count 3.76 M/uL (4.70-6.10); White Blood Count 8.24 K/ul (4.8-10.8)
[2024-07-24 07:41] LABS: Calcium 8.6 mg/dl (8.6-10.3); Creatinine Clr Calc Pharmacy 45.8 ml/min; Potassium 4.1 mmol/L (3.5-5.1)
--- NOTE | 2024-07-24 18:57 | Hospitalist Progress Note ---
Date of Service July 24, 2024 Assessment & Plan (1) Closed fracture of right hip: Plan: fall at home. There was no associated syncope. He suffered a fracture of the right hip and underwent right total hip arthroplasty on July 17. Postoperative day #6. Orthopedic surgery consultation appreciated. Pain control measures. Anticoagulation per orthopedic service. Serial labs (2) Pacemaker: Plan: CAD, TAVR, pacemaker placement due to history of second-degree AV block 2021. Last echo 05/2023 with LV 65 to 69%, appropriately functioning AVR. EKG: Normal sinus rhythm, no territorial ischemia. Troponin normal. No evidence of pulmonary congestion/acute CHF on admission CXR. Stable overall. Continue current medical management. Left heart cath cath 2021 with large dominant RCA, without significant coronary disease. No stents required at that time. Continue current medical management (3) Restrictive lung disease: Plan: History of COPD, restrictive lung disease due to morbid obesity, history of left upper lobectomy of for lung malignancy. Currently stable (4) Type 2 diabetes mellitus with peripheral neuropathy: Plan: ADA diet. Sliding scale coverage. Basal insulin therapy. (5) Hospital psychosis: Plan: He apparently required restraints on the evening of July 18. Supportive care. Will administer Zyprexa IM as needed (6) Acute respiratory failure with hypoxia: Plan: Resolved with incentive spirometry. He is now on room air. This appears to have been due to pulmonary atelectasis. No overt CHF seen on chest x-ray. Continue incentive spirometry. Plan IPR placement denied by insurance. Case management pursuing SNF placement. [facility] his first preference per family. He is medically stable for discharge Admission and Anticipated Discharge Date Admission Date: July 16, 2024 Subjective Alert and pleasant. pain controlled, tolerating PO. Awaiting SNF placement at either [facility] or [facility] Physical Exam Physical Exam: General-alert and oriented x2, no fever. Sometimes confused HEENT-head atraumatic and normocephalic, pupils equal and reactive to light, extraocular muscles intact Neck-no lymphadenopathy or thyromegaly, trachea midline Chest-diminished breath sounds bilaterally. No rales, wheezing or rhonchi Cardiac-regular rate and rhythm, normal S1 and S2 Abdomen-normal bowel sounds, no hepatosplenomegaly Extremities-right hip surgical site is unremarkable. No bleeding or signs of infection. Neuro-cranial nerves II through XII intact, motor and sensory function within normal limits, strength symmetrical, no focal deficits Psych-normal affect, normal mood. He is confused however Results & Data Results & Data Vital Signs (Past 12 Hours) Vital Signs Temp Pulse Resp BP BP Pulse Ox O2 Del Method 07/24/24 15:29 36.6 C 64 18 153/63 H 95 Room Air 07/24/24 11:30 36.3 C L 60 18 148/61 H 95 Room Air 07/24/24 07:48 Room Air 07/24/24 07:08 36.6 C 63 18 158/63 H 94 Room Air Laboratory Results reviewed PG Care Time/CCT Total # of Minutes Spent Total Time Spent with Patient: Total time spent is greater than 50% in coordination of care (as documented) at patient's floor/unit and/or counseling patient: Coding Level of Care Code 05364 SUB INP/OBS CARE 2/35MIN Diagnoses Closed fracture of right hip S72.001A Encounter type: initial encounter Pacemaker Z95.0 Restrictive lung disease J98.4 Type 2 diabetes mellitus with peripheral neuropathy E11.42 Hospital psychosis F23 Acute respiratory failure with hypoxia J96.01 (1) Closed fracture of right hip Encounter type: initial encounter Qualified Code(s): S72.001A - Fracture of unspecified part of neck of right femur, initial encounter for closed fracture
--- NOTE | 2024-07-24 18:59 | Hospitalist Progress Note ---
Date of Service July 24, 2024 Assessment & Plan (1) Closed fracture of right hip: Plan: fall at home. There was no associated syncope. He suffered a fracture of the right hip and underwent right total hip arthroplasty on July 17. Postoperative day #6. Orthopedic surgery consultation appreciated. Pain control measures. Anticoagulation per orthopedic service. Serial labs (2) Pacemaker: Plan: CAD, TAVR, pacemaker placement due to history of second-degree AV block 2021. Last echo 05/2023 with LV 65 to 69%, appropriately functioning AVR. EKG: Normal sinus rhythm, no territorial ischemia. Troponin normal. No evidence of pulmonary congestion/acute CHF on admission CXR. Stable overall. Continue current medical management. Left heart cath cath 2021 with large dominant RCA, without significant coronary disease. No stents required at that time. Continue current medical management (3) Restrictive lung disease: Plan: History of COPD, restrictive lung disease due to morbid obesity, history of left upper lobectomy of for lung malignancy. Currently stable (4) Type 2 diabetes mellitus with peripheral neuropathy: Plan: ADA diet. Sliding scale coverage. Basal insulin therapy. (5) Hospital psychosis: Plan: He apparently required restraints on the evening of July 18. Supportive care. Will administer Zyprexa IM as needed (6) Acute respiratory failure with hypoxia: Plan: Resolved with incentive spirometry. He is now on room air. This appears to have been due to pulmonary atelectasis. No overt CHF seen on chest x-ray. Continue incentive spirometry. Plan IPR placement denied by insurance. Case management pursuing SNF placement. [facility] his first preference per family. He is medically stable for discharge Admission and Anticipated Discharge Date Admission Date: July 16, 2024 Subjective Alert and pleasant. pain controlled, tolerating PO. Awaiting SNF placement at either [facility] or [facility] Physical Exam Physical Exam: General-alert and oriented x2, no fever. Sometimes confused HEENT-head atraumatic and normocephalic, pupils equal and reactive to light, extraocular muscles intact Neck-no lymphadenopathy or thyromegaly, trachea midline Chest-diminished breath sounds bilaterally. No rales, wheezing or rhonchi Cardiac-regular rate and rhythm, normal S1 and S2 Abdomen-normal bowel sounds, no hepatosplenomegaly Extremities-right hip surgical site is unremarkable. No bleeding or signs of infection. Neuro-cranial nerves II through XII intact, motor and sensory function within normal limits, strength symmetrical, no focal deficits Psych-normal affect, normal mood. He is confused however Results & Data Results & Data Vital Signs (Past 12 Hours) Vital Signs Temp Pulse Resp BP BP Pulse Ox O2 Del Method 07/24/24 15:29 36.6 C 64 18 153/63 H 95 Room Air 07/24/24 11:30 36.3 C L 60 18 148/61 H 95 Room Air 07/24/24 07:48 Room Air 07/24/24 07:08 36.6 C 63 18 158/63 H 94 Room Air PG Care Time/CCT Total # of Minutes Spent Total Time Spent with Patient: Total time spent is greater than 50% in coordination of care (as documented) at patient's floor/unit and/or counseling patient: Coding Level of Care Code 77392 SUB INP/OBS CARE 2/35MIN Diagnoses Closed fracture of right hip S72.001A Encounter type: initial encounter Pacemaker Z95.0 Restrictive lung disease J98.4 Type 2 diabetes mellitus with peripheral neuropathy E11.42 Hospital psychosis F23 Acute respiratory failure with hypoxia J96.01 (1) Closed fracture of right hip Encounter type: initial encounter Qualified Code(s): S72.001A - Fracture of unspecified part of neck of right femur, initial encounter for closed fracture
[2024-07-25 07:05] VITALS: BP 171/64; TEMP 97.5; O2SAT 96
[2024-07-25] MEDS: hydrALAZINE HCL 25 MG TAB PO SCH (09:13)
[2024-07-25 10:39] VITALS: PULSE 60
--- NOTE | 2024-07-27 14:33 | Discharge Summary ---
Discharge Summary Date of Service july 25 2024 Principal Dx & Hospital Course #1 = Principal Diagnosis (1) Closed fracture of right hip: fall at home. There was no associated syncope. He suffered a fracture of the right hip and underwent right total hip arthroplasty on July 17. Postoperative day #6. Orthopedic surgery consultation appreciated. Pain control measures. Anticoagulation per orthopedic service. Serial labs (2) Pacemaker: CAD, TAVR, pacemaker placement due to history of second-degree AV block 2021. Last echo 05/2023 with LV 65 to 69%, appropriately functioning AVR. EKG: Normal sinus rhythm, no territorial ischemia. Troponin normal. No evidence of pulmonary congestion/acute CHF on admission CXR. Stable overall. Continue current medical management. Left heart cath cath 2021 with large dominant RCA, without significant coronary disease. No stents required at that time. Continue current medical management (3) Restrictive lung disease: History of COPD, restrictive lung disease due to morbid obesity, history of left upper lobectomy of for lung malignancy. Currently stable (4) Type 2 diabetes mellitus with peripheral neuropathy: ADA diet. Sliding scale coverage. Basal insulin therapy. (5) Hospital psychosis: He apparently required restraints on the evening of July 18. Supportive care. Will administer Zyprexa IM as needed (6) Acute respiratory failure with hypoxia: Resolved with incentive spirometry. He is now on room air. This appears to have been due to pulmonary atelectasis. No overt CHF seen on chest x-ray. Continue incentive spirometry. Plan IPR placement denied by insurance. Case management pursuing SNF placement[facility]. He is medically stable for discharge Admission HPI Per Admitting Provider Juancho is an 83-year-old male past medical history of type II DM, CKD 3, TAVR, VADIM, pulmonary hypertension, CAD, COPD, pacemaker placement 2021, cholecystectomy, and left upper lobectomy 2/2 primary adenocarcinoma of the lung who presents to the ER after a fall when he was using a charles to move cinderblocks, that charles slipped out causing him to fall striking his right hip and rolling onto an embankment. Did not lose consciousness or strike his head. Was not able to bear weight on his right hip due to pain after the fall. Patient seen at the bedside with his present. He reports that he was moving blocks with a charles when he slipped and fell and got wedged between blocks in the house. He did not strike his head or lose consciousness. No lightheadedness or dizziness that led to his fall. He has not any chest pain chest pressure in the previous weeks or months either at rest or with exertion. He does have history of cath in the setting of a aortic valve repair for stenosis, he does not have obstructive disease. He reports that he did have heart failure due to his aortic valve but since this was fixed he has had no recurrent issues with fluid or CHF exacerbations. He formerly used chew does not currently use any tobacco products or alcohol. He has been well recently and has denies fever, chills, sweats, lightheadedness, dizziness, nausea, vomiting, diarrhea, constipation. He does take insulin for diabetes but has not taken any insulin today. He does have neuropathy as a result of his diabetes and a slight resting tremor which has not changed. Denies new focal neurologic deficits including sensory change and weakness although notes that he cannot stand on his right leg due to pain since his fall. Allergic to Bactrim Former chew use. No alcohol use Medications reviewed CODE STATUS: DNR/DNI, reviewed with patient and his at the bedside Discharge Exam General-alert and oriented x2, no fever. Sometimes confused HEENT-head atraumatic and normocephalic, pupils equal and reactive to light, extraocular muscles intact Neck-no lymphadenopathy or thyromegaly, trachea midline Chest-diminished breath sounds bilaterally. No rales, wheezing or rhonchi Cardiac-regular rate and rhythm, normal S1 and S2 Abdomen-normal bowel sounds, no hepatosplenomegaly Extremities-right hip surgical site is unremarkable. No bleeding or signs of infection. Neuro-cranial nerves II through XII intact, motor and sensory function within normal limits, strength symmetrical, no focal deficits Psych-normal affect, normal mood. He is confused however Discharge Plan Discharge Items Patient Disposition: Transfer Half-Way Fac Reason For Visit: R HIP FXR Discharge Diagnosis: Right hip fracture Activity: Per Instructions section Non-emergency contact: Primary Care Provider Call non-emergency contact if: you have any medication questions and your symptoms worsen Follow-up/Referrals: Mili Bullock MD [Primary Care Provider] - Jeff Mcdowell PA-C [Physician [employer] Message Broker Developer] - 08/04/24 2:00 pm (1:45 pm arrival) Diet: Regular and Carb Consistent or DM2 Addtl Attending Provider Instructions: Follow up with primary care in 5-7 days Addtl Spiral Gear Generator Provider Instructions: Orthopedic discharge instructions Weightbearing as tolerated with the use of walker. Needs to use walker at all times due to high risk for falls. Leave Silverlon dressing in place for the next 2 weeks. This will be removed at 2-week follow-up. You may shower on Post op Day 3. Leave Silverlon dressing in tact until follow up appt in 2 weeks. Your dressing is water-resistant, meaning you can shower with it on as long as it is in-tact. Letting some running water run over top of it from the shower is okay. You cannot submerge your incision in water. No baths, hot tubs or swimming pools. Keep dressing clean and dry. If your dressing starts to peel off or gets moisture under it, nursing may reinforce as needed. TEDs bilaterally for 3 weeks Aspirin 81 mg twice daily for DVT prophylaxis x 4 weeks Physical therapy/Occupational Therapy Please do rehab exercises as instructed Pain control per primary service. Generally recommend oxycodone 5mg every 4-6 hours as needed, Tylenol 500-1000mg every 8 hours While on narcotic pain medication and iron supplement, we recommend you take a stool softener to prevent constipation Abduction pillow for the first 2 weeks, this will be reviewed at postop appointment. Posterior hip precautions for 8 weeks: DO NOT flex your hip past 90, DO NOT internally rotate your foot/leg, DO NOT cross your legs Frequently ice, at least 20 minutes 5 times a day. Pending Studies at Discharge: No Stand-Alone Forms: My [facility] Skilled Items Patient informed of condition?: Yes DNR: No Discharge Level of Care: Skilled Communicable Disease: No Discharge Prognosis: Improving Lines: None Urinary Catheter: No Medications and DC Order Prescriptions: New metoprolol succinate 50 mg Tablet Extended Release 24 Hr 100 mg PO QAM Qty: 30 0RF hydralazine 25 mg Tablet 75 mg PO TID 30 Days Qty: 270 0RF tamsulosin 0.4 mg Capsule 0.4 mg PO QAM Qty: 30 0RF oxycodone 5 mg Tablet 5 mg PO Q6H PRN (Reason: pain) Qty: 10 0RF Continued (DME) OneTouch Ultra Test Strip See Rx Instructions .Route Qty: 120 5RF Rx Instructions: Use to test 4 times daily (DME) pen needle, diabetic [Comfort EZ Pen [place]] 33 gauge x 3/16" needle See Rx Instructions .Route Qty: 100 1RF Rx Instructions: As directed pantoprazole 40 mg tablet,delayed release (DR/EC) 40 mg PO BID Qty: 180 3RF (DME) Aeroneb Go Nebulizer Misc See Rx Instructions .MEDSUPPLY Qty: 1 0RF Rx Instructions: With tubing and supplies. J44.9. J45.9. ipratropium-albuterol 0.5 mg-3 mg(2.5 mg base)/3 mL solution for nebulization 3 ml inhalation Q8H PRN (Reason: shortness of breath or wheezing) Qty: 560 4RF aspirin 81 mg tablet,chewable 81 mg PO QAM Anoro Ellipta 62.5-25 mcg/actuation blister with device 1 inh inhalation QAM Qty: 60 12RF escitalopram oxalate 10 mg tablet 10 mg PO QAM Qty: 90 3RF dulaglutide 1.5 mg/0.5 mL pen injector 1.5 mg subcut Q7D Qty: 6 3RF Rx Instructions: TAKE THIS MED EVERY WEDNESDAY empagliflozin 10 mg tablet 10 mg PO QAM Qty: 90 3RF gabapentin 400 mg capsule 400 mg PO BID Qty: 180 3RF insulin lispro protamin-lispro [Humalog Mix 75-25 KwikPen] 100 unit/mL (75-25) insulin pen 25 unit subcut BID Qty: 60 3RF Rx Instructions: before meals isosorbide mononitrate 60 mg tablet extended release 24 hr 60 mg PO QAM Qty: 90 3RF metoprolol succinate 100 mg tablet extended release 24 hr 100 mg PO QAM Qty: 90 3RF rosuvastatin 40 mg tablet 40 mg PO QAM Qty: 90 3RF multivitamin Tablet 1 tab PO QAM ferrous sulfate 324 mg (65 mg iron) tablet,delayed release (DR/EC) 324 mg PO Q2D Discontinued olmesartan 5 mg tablet 5 mg PO QAM Qty: 90 3RF Discharge Orders: Discharge Order (Routine); Ordered 07/25/24 Ordered By: Rhea Bentley Admission Data Admit Date/Time: 07/16/24 20:38 Attending Provider: Rhea Bentley Admit Provider: Robby Linares Primary Care Provider: Mili Bullock Other Providers: [facility]; Robby Hess; Gary Black Other Interventions: Discharge Summary Assessment (RN) Last Done: 07/25/24 10:37 Hospital Stay Data Consultations 07/16/24 18:02 Consult Orthopedic Surgery Routine 07/16/24 18:15 ED Decision to Admit Stat Procedures Performed Operation Date: 07/17/24 07:50 Actual Procedures p Right Total Hip Arthroplasty(Right) - Robby Hess MD Diagnostic Imagining Performed 07/16/24 16:35 CT cervical spine wo con Stat CT head/brain wo con Stat 07/16/24 16:56 CT abd pelvis wo con Stat CT chest diagnostic wo con Stat Pending Results Patient Have Any Pending Studies at Discharge: No Discharge Instructions Given to Patient (Per Discharging Provider) Follow up with primary care in 5-7 days Total Time Total Time Spent Total Time Spent (In Minutes): 35 min Coding Level of Care Code 69860 INP/OBS DISCH >30 MIN Diagnoses Closed fracture of right hip S72.001A Encounter type: initial encounter Pacemaker Z95.0 Restrictive lung disease J98.4 Type 2 diabetes mellitus with peripheral neuropathy E11.42 Hospital psychosis F23 Acute respiratory failure with hypoxia J96.01
== END 2024-07-25 11:10 | DRG 521 ==
LOC: ED 16:26 → SUATTDRO 20:38 → 2S 20:38
DX: I12.9 Hypertensive chronic kidney disease with stage 1 through stage 4 chronic kidney disease, or unspecified chronic kidney disease; J96.01 Acute respiratory failure with hypoxia; E78.5 Hyperlipidemia, unspecified; Z68.34 Body mass index [BMI] 34.0-34.9, adult; N18.30 Chronic kidney disease, stage 3 unspecified; Y93.89 Activity, other specified; F32.A Depression, unspecified; S72.041A Displaced fracture of base of neck of right femur, initial encounter for closed fracture; Z85.118 Personal history of other malignant neoplasm of bronchus and lung; J44.9 Chronic obstructive pulmonary disease, unspecified; I25.10 Atherosclerotic heart disease of native coronary artery without angina pectoris; Z95.0 Presence of cardiac pacemaker; E11.22 Type 2 diabetes mellitus with diabetic chronic kidney disease; G47.33 Obstructive sleep apnea (adult) (pediatric); D50.9 Iron deficiency anemia, unspecified; Z90.2 Acquired absence of lung [part of]; Z79.82 Long term (current) use of aspirin; Z88.2 Allergy status to sulfonamides; J98.11 Atelectasis; Z79.85 Long-term (current) use of injectable non-insulin antidiabetic drugs; I27.20 Pulmonary hypertension, unspecified; F41.9 Anxiety disorder, unspecified; W01.198A Fall on same level from slipping, tripping and stumbling with subsequent striking against other object, initial encounter; F29 Unspecified psychosis not due to a substance or known physiological condition; Z66 Do not resuscitate; Z79.4 Long term (current) use of insulin; E11.42 Type 2 diabetes mellitus with diabetic polyneuropathy; Z87.891 Personal history of nicotine dependence; E66.01 Morbid (severe) obesity due to excess calories; Z79.899 Other long term (current) drug therapy